=== PATIENT | female | born 1990 | race Caucasian/White ===

== ENCOUNTER 2018-05-11 12:16 | Outpatient (REF) | payer MEDICAID, SELFPAY ==
--- NOTE | 2018-05-11 11:30 | PAPFT_PTH ---
PATIENT: Malia Ledesma LOC: [facility] U#:[id number] AGE/SX: 27/F ROOM: RE05/11/[address]: Leigh Ann Bauer CNM : 1990 BED: DIS: 05/11/2018 SPEC #: [id number] RECD: 05/11/18 13:05 STATUS: SUSANNA REJimmie #: [id number] ANDREA: 05/11/18 11:[address]: Leigh Ann Bauer DEPT: [facility] Cytology RECD BY: Camille Zuniga ENTERED: 05/11/18 13:05 SP TYPE: PAPFT OTHR DR: Griselda Alatorre APRN Tissues: 1 - CX/ENDOCX FOR PAP SMEARS Procedures: PAP THIN PREP/UVM Screening HPV DNA PROBE Comments: [id number]
[2018-05-12 14:16] LABS: Chlamydia Result Negative; GC Result Negative; Specimen Description CERVIX
== END 2018-05-11 12:36 ==
LOC: LBN 12:16
PROVIDERS: PCP Nurse Practitioner Family; Visit Provider Advanced Practice Midwife
DX: Z34.91 Encounter for supervision of normal pregnancy, unspecified, first trimester (principal); Z11.3 Encounter for screening for infections with a predominantly sexual mode of transmission; Z12.4 Encounter for screening for malignant neoplasm of cervix
CPT/HCPCS: 87491; 87591; 88142; 87624

== ENCOUNTER 2018-05-12 09:53 | Outpatient (CLI) | payer MEDICAID, SELFPAY ==
[2018-05-12 10:51] LABS: Glucose,1 Hr (Glucola) 103 mg/dL (80-140)
[2018-05-12 11:05] LABS: TSH (W/Ref FT4) 2.47 uIU/mL (0.358-3.74)
[2018-05-13 13:29] LABS: HSV Type 1 Ab, IgG Positive; HSV Type 2 Ab, IgG Negative
[2018-05-13 13:30] LABS: Varicella IgG Antibody Positive
== END 2018-05-12 10:13 ==
PROVIDERS: PCP Nurse Practitioner Family; Visit Provider Advanced Practice Midwife
DX: Z34.81 Encounter for supervision of other normal pregnancy, first trimester (principal); Z01.84 Encounter for antibody response examination; Z11.59 Encounter for screening for other viral diseases
CPT/HCPCS: 36415; 82950; 86787; 86850; 86900; 86901; 84443; 86659; 86695; 86696

== ENCOUNTER 2018-06-09 15:27 | Outpatient (REF) | payer MEDICAID, SELFPAY ==
[2018-06-09 17:26] LABS: Bilirubin Negative (Negative); Blood Negative (Negative); Clarity Clear; Glucose Negative (Negative); Ketones 15 mg/dL (Negative); Leukocyte Esterase Negative (Negative); Nitrite Negative (Negative); Urobilinogen 0.2 EU/dL (Up TO 0.2)
== END 2018-06-09 15:47 ==
LOC: LBN 15:27
PROVIDERS: PCP Nurse Practitioner Family; Visit Provider Advanced Practice Midwife
DX: Z34.91 Encounter for supervision of normal pregnancy, unspecified, first trimester (principal)
CPT/HCPCS: 81003; 87086

== ENCOUNTER 2018-07-01 12:57 | Outpatient (REF) | payer MEDICAID, SELFPAY | END 2018-07-01 13:17 | LOC: LBN 12:57 | PROVIDERS: PCP Nurse Practitioner Family; Visit Provider Advanced Practice Midwife | DX: N89.8 Other specified noninflammatory disorders of vagina (principal); L30.9 Dermatitis, unspecified; Z34.91 Encounter for supervision of normal pregnancy, unspecified, first trimester | CPT/HCPCS: 87086; 87480; 87510; 87660 ==

== ENCOUNTER 2018-07-23 00:32 | Outpatient (CLI) | payer MEDICAID, SELFPAY ==
--- NOTE | 2018-07-23 07:42 | DI.US_ITS ---
SYMPTOM/DIAGNOSIS: 18 WEEK ANATOMY SURVEY, Z3 OB ULTRASOUND: The fetus was in variable position during the exam. The placenta is posterior. The biometric measurements correspond to 18 weeks 5 days. The heart and face were not well seen. The patient is scheduled to return 30 July 2018 for repeat imaging. No gross abnormalities are identified. The amniotic fluid amount appears grossly normal. IMPRESSION: There is somewhat limited visualization of morphology. The patient is scheduled for repeat imaging. Many abnormalities cannot be diagnosed. A normal exam does not exclude a congenital anomaly. Radiology No. [id number] LMP: Exam Date: 07/23/18 [facility] wks days on EDC ([facility]) 12/21/18 Confirmed: HISTORY: SURVEY ---- PREDICTED GESTATIONAL AGE NUMBER 18 +3 weeks with a range of 17 +3 week to 19 +3 weeks. 1 Determined by_XX__1STUS___LMP___HISTORY Info. pertaining to fetus # PLACENTA PRESENTATION Grade 0 - 1 Cephalic___ Anterior___Posterior_XX__ Breech____ Right Left Transverse(head right___ Fundal___Low-lying___Previa___ Transverse(head left___ Varying__XX____ BIOMETRY AMNIOTIC FLUID BPD: 42 mm 18 +6 weeks Normal HC: 160 mm 18 +6 weeks AC: 133 mm 18 +5 weeks FL: 28 mm 18 +4 weeks AMNIOTIC FLUID INDEX >26 WK CRL: mm weeks Cisterna Magna: 4 mm CI: 0,81 RUQ: LUQ Cerebellum: 1.9 cm EFW: grams Percentile RLQ: LLQ Total: cms Composite AGE= 18 +5 wks EDC by US__12/19/2018 BIOPHYSICAL PROFILE ANATOMY IDENTIFIED SCORE 0/2 Heart: 4-Chamber_NS __Rate:BPM__155___ LVOT:__X RVOT:__X Amniotic Fluid(>2cms)____ Stomach:__X Kidneys:___X____ Respirations (>30 secs) Bladder:___X Post. Fossa:__X Body Flex/Extension 3 vessel cord:_X Ventricles:___X cord insertion:_X____ Lips:__NS__ Extremity Flex/Extension spinal morphology: Nose: NS Total Score= Palate:__X NS=not seen
== END 2018-07-23 00:52 ==
PROVIDERS: PCP Nurse Practitioner Family; Visit Provider Advanced Practice Midwife
DX: Z34.92 Encounter for supervision of normal pregnancy, unspecified, second trimester (principal)
CPT/HCPCS: 76805

== ENCOUNTER 2018-08-03 00:27 | Outpatient (CLI) | payer MEDICAID, SELFPAY ==
--- NOTE | 2018-08-03 08:20 | DI.US_ITS ---
SYMPTOM/DIAGNOSIS: F/U SURVEY, LIPS, PALATE. AND 4 CH HRT LIMITED OBSTETRICAL ULTRASOUND: There is a single intrauterine gestation in the cephalic presentation. heart rate is 157 beats/minute. 4-chamber heart was visualized as were the lips, nose and palate which are unremarkable. IMPRESSION: Single living intrauterine gestation. Many abnormalities cannot be diagnosed. A normal exam does not exclude a congenital anomaly. Radiology No. [id number] LMP: Exam Date:08/03/18 [facility] wks days on EDC ([facility]) Confirmed: HISTORY: F/U LIPS, NOSE, MOUTH, 4 CH VIEWS PREDICTED GESTATIONAL AGE NUMBER weeks with a range of week to weeks. 1 Determined by___1STUS___LMP___HISTORY Info. pertaining to fetus # PLACENTA PRESENTATION Grade Cephalic_XX__ Anterior___Posterior___ Breech____ Right Left Transverse(head right___ Fundal___Low-lying___Previa___ Transverse(head left___ Varying BIOMETRY AMNIOTIC FLUID BPD: mm weeks Normal HC: mm weeks Oligo Polyhydramnios AC: mm weeks FL: mm weeks AMNIOTIC FLUID INDEX >26 WK CRL: mm weeks Cisterna Magna: mm CI: RUQ: LUQ Cerebellum: cm EFW: grams Percentile RLQ: LLQ Total: cms Composite AGE= wks EDC by US BIOPHYSICAL PROFILE ANATOMY IDENTIFIED SCORE 0/2 Heart: 4-Chamber_XX__Rate:BPM___157__ LVOT: RVOT: Amniotic Fluid(>2cms)____ Stomach: Kidneys: Respirations (>30 secs) Bladder: Post. Fossa: Body Flex/Extension 3 vessel cord: Ventricles: cord insertion: Lips:_X___ Extremity Flex/Extension spinal morphology: Nose:X Total Score= Palate:_X NS=not seen
== END 2018-08-03 00:47 ==
PROVIDERS: PCP Nurse Practitioner Family; Visit Provider Advanced Practice Midwife
DX: Z34.92 Encounter for supervision of normal pregnancy, unspecified, second trimester (principal); Z36.2 Encounter for other antenatal screening follow-up
CPT/HCPCS: 76815

== ENCOUNTER 2018-08-06 14:33 | Outpatient (REF) | payer MEDICAID, SELFPAY | END 2018-08-06 14:53 | LOC: LBN 14:33 | PROVIDERS: PCP Nurse Practitioner Family; Visit Provider Advanced Practice Midwife | DX: Z34.92 Encounter for supervision of normal pregnancy, unspecified, second trimester (principal) | CPT/HCPCS: 87086 ==

== ENCOUNTER 2018-09-04 11:56 | Outpatient (REF) | payer MEDICAID, SELFPAY ==
[2018-09-04 12:48] LABS: Bilirubin Negative (Negative); Blood Negative (Negative); Clarity Sl Cloudy; Glucose Negative (Negative); Ketones Negative (Negative); Leukocyte Esterase Negative (Negative); Nitrite Negative (Negative); Urobilinogen 0.2 EU/dL (Up TO 0.2)
== END 2018-09-04 12:16 ==
LOC: LBN 11:56
PROVIDERS: PCP Nurse Practitioner Family; Visit Provider Advanced Practice Midwife
DX: Z34.92 Encounter for supervision of normal pregnancy, unspecified, second trimester (principal)
CPT/HCPCS: 81003; 87086

== ENCOUNTER 2018-10-02 08:42 | Outpatient (CLI) | payer MEDICAID, SELFPAY ==
[2018-10-02 09:14] LABS: Glucose,1 Hr (Glucola) 102 mg/dL (80-140)
[2018-10-02 09:24] LABS: HCT 36.5 % (36.0-46.0); HGB 11.8 g/dL (12.0-15.5); Mean Corp. HGB Concentration 32.3 g/dL (32.0-36.0); Mean Corpuscular Hemoglobin 29.6 pg (27.0-33.0); Mean Corpuscular Volume 91.7 fL (80-95); Mean Platelet Volume 10.3 fL (8.0-11.0); Platelet Count 253 x1000/uL (130-400); RBC 3.98 m/cumm (4.00-5.20); RBC Distribution Width 12.8 % (11.7-14.6)
== END 2018-10-02 09:02 ==
PROVIDERS: PCP Nurse Practitioner Family; Visit Provider Advanced Practice Midwife
DX: Z34.93 Encounter for supervision of normal pregnancy, unspecified, third trimester (principal)
CPT/HCPCS: 36415; 82950; 85027

== ENCOUNTER 2018-11-20 02:22 | Outpatient (CLI) | payer MEDICAID, SELFPAY ==
--- NOTE | 2018-11-20 10:47 | DI.US_ITS ---
SYMPTOMS/DIAGNOSIS: SIZE < DATES, Z34.90 OB ULTRASOUND: OB ultrasound was performed utilizing third trimester protocol. biometry is consistent with a gestational age of 35 weeks 3 days and EDC 12/22/18. The estimated weight is 2645 grams which is at the 51st percentile for predicted gestational age. Placenta is posterior with no placenta previa. Visually a normal quantity of amniotic fluid with LAKESHA 17. Fetus is in cephalic presentation. Many abnormalities cannot be diagnosed. A normal exam does not exclude a congenital anomaly. Radiology No. [id number] LMP: Exam Date: 11/20/18 [facility] wks days on EDC ([facility]) 12/21/18 Confirmed: HISTORY: f/u weight and LAKESHA PREDICTED GESTATIONAL AGE NUMBER 35+4 weeks with a range of 34+4 weeks to 36+4 weeks. 1 Determined by___1STUS___LMP___HISTORY Info. pertaining to fetus # PLACENTA PRESENTATION Grade II Cephalic X Anterior___Posterior X Breech____ Right Left Transverse(head right___ Fundal___Low-lying___Previa___ Transverse(head left___ Varying BIOMETRY AMNIOTIC FLUID BPD: 88 mm 35+2 weeks Normal HC: 316 mm 35+3 weeks AC: 313 mm 35+2 weeks FL: 69 mm 35+3weeks AMNIOTIC FLUID INDEX >26 WK CRL: mm weeks Cisterna Magna: mm CI: 85 RUQ: 4.95 LUQ: 0.62 Cerebellum: cm EFW: 2645 grams Percentile 51% RLQ: 6.74 LLQ: 4.74 Total: 17.1 cms Composite AGE= 35+3 wks ( 5 lbs, 13 oz) EDC by US 12/22/18 BIOPHYSICAL PROFILE ANATOMY IDENTIFIED SCORE 0/2 Heart: 4-Chamber___Rate: 133 BPM LVOT: RVOT: Amniotic Fluid(>2cms)____ Stomach: Kidneys: Respirations (>30 secs) Bladder: Post. Fossa: Body Flex/Extension 3 vessel cord: Ventricles: cord insertion: Lips:____ Extremity Flex/Extension spinal morphology: Nose: Total Score= Palate: NS=not seen
== END 2018-11-20 02:42 ==
PROVIDERS: PCP Nurse Practitioner Family; Visit Provider Advanced Practice Midwife
DX: O26.843 Uterine size-date discrepancy, third trimester (principal)
CPT/HCPCS: 76816

== ENCOUNTER 2018-12-04 15:59 | Outpatient (REF) | payer MEDICAID, SELFPAY | END 2018-12-04 16:19 | LOC: LBN 15:59 | PROVIDERS: PCP Nurse Practitioner Family; Visit Provider Advanced Practice Midwife | DX: R30.0 Dysuria (principal); Z34.93 Encounter for supervision of normal pregnancy, unspecified, third trimester; Z36.85 Encounter for antenatal screening for Streptococcus B | CPT/HCPCS: 87081; 87086; 87480; 87510; 87660 ==

== ENCOUNTER 2018-12-18 09:31 | Outpatient (CLI) | payer MEDICAID, SELFPAY | END 2018-12-18 09:51 | PROVIDERS: PCP Nurse Practitioner Family; Visit Provider Advanced Practice Midwife | DX: O36.8130 Decreased fetal movements, third trimester, not applicable or unspecified (principal); Z3A.39 39 weeks gestation of pregnancy | CPT/HCPCS: 59025 ==

== ENCOUNTER 2018-12-22 02:21 | Inpatient (IN) | payer MEDICAID, SELFPAY ==
[2018-12-22 04:21] LABS: ROM Plus Positive
[2018-12-22] MEDS: Zolpidem 5 MG TAB PO (05:09)
[2018-12-22] MEDS: Normal Saline Flush 10 ML SYR IVP ×2 (07:16→11:51)
[2018-12-22] MEDS: Lactated Ringers 500 ML IV (07:20)
[2018-12-22 07:35] LABS: HCT 37.5 % (36.0-46.0); HGB 12.3 g/dL (12.0-15.5); Mean Corp. HGB Concentration 32.8 g/dL (32.0-36.0); Mean Corpuscular Hemoglobin 28.9 pg (27.0-33.0); Mean Platelet Volume 10.2 fL (8.0-11.0); Platelet Count 242 x1000/uL (130-400); RBC 4.26 m/cumm (4.00-5.20); RBC Distribution Width 13.3 % (11.7-14.6); White Blood Cell Count 10.73 k/cumm (4.4-10.8)
[2018-12-22] MEDS: fentaNYL 100 MCG/2 ML VIAL EP (08:41)
[2018-12-22] MEDS: Bupivacaine 0.25% Pres-Free 30 ML VIAL (08:42)
[2018-12-22] MEDS: Ondansetron 4 MG/2 ML VIAL IVP ×2 (11:50→16:33)
[2018-12-22] MEDS: Lactated Ringers 1,000 ML 1000 ML IV (12:15)
[2018-12-22] MEDS: Lactated Ringers 1,000 ML 250 ML IV (13:38)
[2018-12-22] MEDS: LORazepam 0.5 MG TAB PO (13:43)
[2018-12-22] MEDS: Hamamelis Leaf/Glycerin 100 EACH BOX PR (15:32)
[2018-12-22] MEDS: diphenhydrAMINE 25 MG CAP PO (17:08)
[2018-12-22] MEDS: Prenatal Multivitamin w/CA,FE TAB 1 TAB PO (21:45)
[2018-12-23] MEDS: diphenhydrAMINE 25 MG CAP PO (01:30)
[2018-12-23 07:29] LABS: HCT 37.3 % (36.0-46.0); Mean Corp. HGB Concentration 32.2 g/dL (32.0-36.0); Mean Corpuscular Hemoglobin 28.6 pg (27.0-33.0); Mean Platelet Volume 10.1 fL (8.0-11.0); Platelet Count 220 x1000/uL (130-400); RBC 4.19 m/cumm (4.00-5.20); RBC Distribution Width 13.3 % (11.7-14.6)
[2018-12-23] MEDS: Ibuprofen 600 MG TAB PO (11:27)
[2018-12-23] MEDS: Triamcinolone 0.1% CR 15 GM TUBE TP (11:29)
== END 2018-12-23 17:00 | disposition home or self-care (01) | DRG 807 ==
PROVIDERS: Admitting Provider Advanced Practice Midwife; PCP Nurse Practitioner Family; Visit Provider Advanced Practice Midwife
DX: O42.02 Full-term premature rupture of membranes, onset of labor within 24 hours of rupture (principal); Z37.0 Single live birth; O69.81X0 Labor and delivery complicated by cord around neck, without compression, not applicable or unspecified; O48.0 Post-term pregnancy; O76 Abnormality in fetal heart rate and rhythm complicating labor and delivery; Z3A.40 40 weeks gestation of pregnancy; O99.344 Other mental disorders complicating childbirth; F43.10 Post-traumatic stress disorder, unspecified; F90.9 Attention-deficit hyperactivity disorder, unspecified type; F41.9 Anxiety disorder, unspecified
CPT/HCPCS: 36415; 84112; 85027; 86850; 86900; 86901; J2405; J3010; J3490

== ENCOUNTER 2019-04-28 11:47 | Outpatient (REF) | payer MEDICAID, SELFPAY ==
--- NOTE | 2019-04-28 10:55 | PAPFT_PTH ---
PATIENT: Malia Ledesma LOC: [facility] U#:[id number] AGE/SX: 28/F ROOM: RE04/28/[address]: Aggie Chapman RN : 1990 BED: DIS: 04/28/2019 SPEC #: [id number] RECD: 04/28/19 12:56 STATUS: SUSANNA REJimmie #: [id number] ANDREA: 04/28/19 10:[address]: Aggie Chapman [facility] Cytology RECD BY: Camille Zuniga ENTERED: 04/28/19 12:56 SP TYPE: PAPFT WOLF DR: Karena Stevens APRN Tissues: 1 - CX/ENDOCX FOR PAP SMEARS Procedures: PAP THIN PREP/UVM Screening HPV DNA PROBE Comments: [id number]
== END 2019-04-28 12:07 ==
LOC: LBN 11:47
PROVIDERS: PCP Nurse Practitioner; Visit Provider Advanced Practice Midwife
DX: N89.8 Other specified noninflammatory disorders of vagina (principal); Z12.4 Encounter for screening for malignant neoplasm of cervix; Z11.51 Encounter for screening for human papillomavirus (HPV)
CPT/HCPCS: 88142; 87480; 87510; 87624; 87660

== ENCOUNTER 2020-04-06 18:12 | Outpatient (REF) | payer MEDICAID, SELFPAY ==
[2020-04-10 14:07] LABS: Chlamydia Result Negative (Negative); GC Result Negative (Negative)
== END 2020-04-06 18:32 ==
LOC: NCHCN 18:12
PROVIDERS: PCP Family Medicine; Visit Provider Family Medicine
DX: N94.10 Unspecified dyspareunia (principal); Z11.3 Encounter for screening for infections with a predominantly sexual mode of transmission
CPT/HCPCS: 87491; 87591

== ENCOUNTER 2020-04-23 10:55 | Emergency (ER) | payer MEDICAID, SELFPAY ==
[2020-04-23] VITALS (18 sets, daily range): BP systolic 111–143; BP diastolic 62–99; PULSE 66–87; RESP 18; TEMP 36.6; O2SAT 97–99
[2020-04-23 11:20] LABS: Bilirubin Negative (Negative); Blood Negative (Negative); Clarity Clear (Clear); Glucose Negative (Negative); Ketones Negative (Negative); Leukocyte Esterase Negative (Negative); Nitrite Negative (Negative); Urobilinogen 0.2 EU/dL (Up TO 0.2); pH 7.5 (5-8)
--- NOTE | 2020-04-23 12:14 | W.ED.GENAD ---
Discharge Plan Disposition Patient Disposition: HOME Condition: Stable Discharge Details Chief Complaint: FlankPain Clinical Impression: Chills, Elevated WBC count, Muscular aches Primary Care Provider: Margarito Curry ED Provider: Angel Altamirano Home Meds and New Rx's Prescriptions: New sulfamethoxazole-trimethoprim [Bactrim DS] 800-160 mg tablet 1 tab PO BID Qty: 27 RF: 0 Continued PNV,calcium 72-iron,carb-folic 29 mg iron- 1 mg tablet 1 tab PO DAILY Qty: 90 RF: 4 ParaGard T 380A 380 square mm intrauterine device 1 device IY ONCE RF: 0 buspirone 5 mg tablet 5 mg PO BID RF: 0 triamcinolone acetonide 0.5 % cream 1 applic TP BID Qty: 15 RF: 1 Discharge Instructions Instructions: Leukocytosis (ED) Additional Instructions: Please take full course of antibiotic as prescribed for potential kidney infection. Please drink plenty of fluids to stay hydrated. Please allow for plenty of rest. You should maintain quarantine at home until COVID-19 testing is negative. You will be called with COVID-19 result or can access this on the patient portal. Please contact your primary care physician to arrange follow-up. Return to the ER for any worsening or new concerning symptoms. Stand Alone Forms: PENDING COVID-19 TESTING Referrals: Margarito Curry [Primary Care Provider] - Discharge Data Discharge Date/Time-TO BE ENTERED AT DEPARTURE: 04/23/20 13:43 Medical Decision Making 29-year-old female with history of generalized anxiety disorder, here with diffuse myalgias, chills over the past 2 days. Patient is afebrile, hemodynamically stable. No signs of focal bacterial infection on exam. Abdominal exam benign. Lungs clear to auscultation bilaterally all field [place], saturating well. Labs reviewed and leukocytosis noted. Urinalysis is unremarkable but patient notes that she has had urinary tract infections in the past that were difficult to diagnose. She does note that while she has pain all over she seems a more focal right flank discomfort which is consistent with prior presentations for kidney infection. Given this, despite negative urinalysis, I will cover with Bactrim for potential pyelonephritis. Blood cultures sent. COVID-19 test was sent and is pending. Patient understands importance of quarantine until test results negative. Patient is quite anxious and has had significant life stressors recently. Of note, patient does state that she has been drinking heavily recently and stopped drinking over the past few days. Mild alcohol withdrawal may be contributing to symptoms. I do think patient needs close outpatient follow-up with her primary care physician I have encouraged her to call Dr. Curry's office on Friday on Friday. She was encouraged to return immediately for any worsening or new concerning symptoms. HPI General Mode of arrival: ambulatory. Date/Time Provider Initiated Documentation: 04/23/20 10:59. Limitations to Documentation: no limitations. Information obtained by: patient. HPI Narrative: 29-year-old female with history of generalized anxiety disorder, here with chills over the past 2 days. Chills have been moderate with no modifiers. She has associated diffuse body myalgias. No associated cough or shortness of breath. Patient is concerned that she may have a urinary tract infection. Patient does note that she has had pyelonephritis in the past that was difficult to diagnose with late onset of symptoms. Patient states that recently she has been drinking up to 6 beers a night over the past month or so. She stopped drinking a couple days ago and wonders if symptoms may be related to withdrawal. She does have anxiety. Related Data Home Medications Medication Instructions Recorded Confirmed vitamins with calcium 1 tab PO DAILY #90 tab 04/21/18 04/23/20 no.72-iron 29 mg-folic acid 1 mg tablet triamcinolone acetonide 0.5 % 1 applic TP BID #15 gm 08/13/18 04/23/20 topical cream copper 380 square mm intrauterine 1 device IY ONCE 02/02/19 04/23/20 device buspirone 5 mg tablet 5 mg PO BID 04/28/19 04/23/20 sulfamethoxazole-trimethoprim 1 tab PO BID #27 tab 04/23/20 [Bactrim DS] Previous Rx's Medication Instructions Recorded vitamins with calcium 1 tab PO DAILY #90 tab 04/21/18 no.72-iron 29 mg-folic acid 1 mg tablet triamcinolone acetonide 0.5 % 1 applic TP BID #15 gm 08/13/18 topical cream sulfamethoxazole-trimethoprim 1 tab PO BID #27 tab 04/23/20 [Bactrim DS] Allergies Allergy/AdvReac Type Severity Reaction Status Date / Time Penicillins AdvReac Intermediate Hives Verified 04/23/20 11:11 General Stated Complaint: FlankPain LETITIA: 3 Review of Systems All systems reviewed & are unremarkable except as noted in HPI and below Constitutional Constitutional: Reports body ache(s) and Reports chills Respiratory Respiratory: Denies cough Genitourinary Genitourinary: Reports as per HPI and Denies dysuria Psychiatric Psychiatric: Reports anxiety [facility] Medical History (Updated 04/23/20 @ 13:29 by Angel Altamirano MD) Anxiety (Chronic) Depression (Inactive) Eczema (Chronic) History of acute pyelonephritis (Acute) HPV in female (Acute) IUD check up (Inactive) RTO in 1 year for annual exam. Normal menstrual pattern with paragard discussed. Positive test (Acute) (Resolved) Pyelonephritis (Inactive 12/19/16) Routine medical exam (Inactive) Vaginitis (Inactive) Surgical History Cystoscopy (01/05/18) [facility] with R ureteral stent placement EGD w/Bx for H.Pylori (07/29/08) [facility] Family History (Updated 05/18/19 @ 11:03 by Virginia Manzo RN) Father , OD at age 42. Substance abuse Essential hypertension Mother Mental disorder Bipolar d/o Neoplasm small cell neuroendocrine carcinoma Sister Substance abuse Mental disorder Bipolar d/o Brother Substance abuse Mental disorder Bipolar d/o Brother Substance abuse Mental disorder Bipolar d/o Grandmother Neoplasm Breast CA Social History (Updated 03/18/19 @ 09:37 by Simran Good RN) Smoking/Tobacco Use Status: Current-Occasional Tobacco Type: cigarettes Counseling given: provider counseling Alcohol Intake: never Details: Decided to quit drinking. Stopped 01/2019 Substance use type: does not use Adopted: No Foster care: No Household members: significant other and children Number of Children: 2 current occupation: [employer] Pets and animals: Yes (1 dog) What type of physical activity do you participate in: regular exercise Duration: other Details: cleaning Frequency: daily Do you feel safe at home: Yes Do you feel safe in your relationship?: Yes Female Reproductive History Menstrual control method: none History History 2 Para 2 Hx # Term Pregnancies 2 Multiple births 0 Hx # Pregnancies 0 Ectopic pregnancies 0 AB induced 0 Hx Number of Living Children 2 AB spontaneous 0 Past Pregnancies Del. Date GA/Weeks # Outcome Route Wgt Sex Labor Lgth Anesthesia Location Prov Complic 11/20/16 40 Successful vaginal 2.92 kg Female 9 hours regional 12/22/18 40 No Successful vaginal 3.685 kg Female Vale Bauer CNM Delivery Date: 11/20/16 Delivered at [place] Vale Bauer Delivery Date: 12/22/18 No notes to display Exam Const General: cooperative and no acute distress HENMT Mouth: moist mucous membranes Throat: posterior oropharynx normal Eyes Conjunctivae: normal conjunctivae Sclera: normal sclerae Neck Neck: full ROM, trachea midline and supple Resp Auscultation: clear to auscultation bilaterally, no rales, no rhonchi and no wheezes Cardio Rate: regular rate and not tachycardic Rhythm: regular rhythm GI Palpation: soft, not firm, no guarding, no masses, not rigid and nontender Back/Spine/Pelvis Back: CVA tenderness (bilateral) Skin General skin exam: no rashes or lesions noted Neuro General: patient alert, patient awake and tone normal Other: No tremor Extrem General: no edema Psych Appearance: grossly normal Mental Status: mental status grossly normal Course Vital Signs Vital signs: Vital Signs Temperature 36.6 C 04/23/20 11:07 Pulse 87 04/23/20 11:07 Respiratory Rate 18 04/23/20 11:07 Blood Pressure 143/85 H 04/23/20 11:07 Pulse Oximetry 99 04/23/20 11:07 Temperature 36.6 C 04/23/20 11:07 Temperature Source Skin 04/23/20 11:07 Pulse 87 04/23/20 11:07 Respiratory Rate 18 04/23/20 11:07 Respiratory Effort 04/23/20 11:10 Blood Pressure 143/85 H 04/23/20 11:07 Blood Pressure Position Sitting 04/23/20 11:07 Pulse Oximetry 99 04/23/20 11:07 Oxygen Delivery Method Room Air 04/23/20 11:07 Oxygen Flow Rate 0 04/23/20 11:07 Pain Level 9 04/23/20 11:10 Lab/Test Results Lab/Test Results: Laboratory Tests Range/Units 04/23/20 11:02 Urine Color (Yellow) Yellow Urine Clarity (Clear) Clear Urine pH (5-8) 7.5 Ur Specific Lorenzo (1.005-1.025) 1.020 Urine Protein (Negative) mg/dL Negative Urine Ketones (Negative) mg/dL Negative Urine Blood (Negative) Negative Urine Nitrite (Negative) Negative Urine Bilirubin (Negative) Negative Urine Urobilinogen (Up TO 0.2) EU/dL 0.2 Ur Leukocyte Esterase (Negative) Negative Urine Glucose (Negative) mg/dL Negative POC- Test(urine) Negative
[2020-04-23] MEDS: Ibuprofen 600 MG TAB PO (12:18)
[2020-04-23] MEDS: Lactated Ringers 1,000 ML 1000 ML IV (12:18)
[2020-04-23 12:22] LABS: Abs Immature Grans 0.08 10^3/uL (0.0-0.06); Absolute Basophil Count 0.05 10^3/uL (0.0-0.2); Absolute Eosinophil Count 0.02 10^3/uL (0.0-0.7); Basophils % 0.3; Eosinophils % 0.1; HGB 13.5 g/dL (11.2-15.7); Immature Grans % 0.5; Lymphocytes % 2.8; MCH 30.4 pg (27.0-33.0); MCHC 32.1 % (32.0-36.0); MCV 94.6 fL (80-95); MPV 10.1 fL (8.0-11.0); Monocytes % 7.3; Nucleated RBC 0 %; Platelet Count 298 10^3/uL (130-400); RBC 4.44 10^6/uL (3.93-5.22); RDW 13.1 % (11.7-14.6); RDW-SD 45.2 fL; WBC 17.36 10^3/uL (4.4-10.8)
[2020-04-23 12:23] LABS: Absolute Lymphocyte Count 0.49 10^3/uL (1.2-3.4); Absolute Monocyte Count 1.27 10^3/uL (0.1-0.8); Absolute Neutrophil Count 15.45 10^3/uL (1.2-6.7)
[2020-04-23 12:37] LABS: ALT 22 U/L (14-59); AST 11 U/L (15-37); Albumin 3.7 g/dL (3.4-5.0); Alkaline Phosphatase 71 U/L (46-116); Anion Gap 9.3 mmol/L (3-11); BUN 6 mg/dL (7-18); Bilirubin, Total 0.6 mg/dL (0.2-1.0); CO2 24.7 mmol/L (21.0-32.0); CREATININE 0.58 mg/dL (0.55-1.02); Calcium 9.1 mg/dL (8.5-10.1); Chloride 100 mmol/L (98-107); Glucose 99 mg/dL (74-106); Potassium 3.5 mmol/L (3.5-5.1); Sodium 134 mmol/L (136-145); Total Protein 7.3 g/dL (6.4-8.2)
[2020-04-23 12:41] LABS: Troponin I < 0.05 ng/mL (<0.06)
[2020-04-23] MEDS: Sulfameth/Trimeth DS TAB 1 TAB PO (13:37)
[2020-04-26 10:58] LABS: Lyme Ab w Rflx to Lyme Confirm Negative (Negative)
[2020-04-26 22:50] LABS: Patient Race White; SARS-CoV-2 RNA Undetected (Undetected); SARS-CoV-2 Specimen Source Nasopharynx
[2020-04-27 00:57] LABS: Anaplasma phagocytophilum Negative (Negative); B. miyamotoi PCR Negative (Negative); Babesia divergens/MO-1 Negative (Negative); Babesia duncani Negative (Negative); Babesia microti Negative (Negative); Ehrlichia chaffeensis Negative (Negative); Ehrlichia ewingii/canis Negative (Negative); Ehrlichia muris eauclairensis Negative (Negative)
--- NOTE | 2020-04-27 14:39 | NUR.NOTE ---
Nursing Note: PT notified of COVID results at this time.
== END 2020-04-23 13:43 | disposition home or self-care (01) ==
PROVIDERS: Emergency Provider Student in an Organized Health Care Education/Training Program; PCP Family Medicine
DX: R68.83 Chills (without fever) (principal); D72.829 Elevated white blood cell count, unspecified; M79.18 Myalgia, other site; Z03.818 Encounter for observation for suspected exposure to other biological agents ruled out
CPT/HCPCS: 80053; 81025; 87040; 87798; 96360; 99284; U0003; 81003; 84484; 85025; 86618

== ENCOUNTER 2020-04-28 10:34 | Outpatient (REF) | payer MEDICAID, SELFPAY ==
[2020-04-28 15:07] LABS: ESR 22 mm/hr (0-20)
[2020-04-28 15:08] LABS: Abs Immature Grans 0.03 10^3/uL (0.0-0.06); Absolute Basophil Count 0.05 10^3/uL (0.0-0.2); Absolute Eosinophil Count 0.24 10^3/uL (0.0-0.7); Absolute Lymphocyte Count 0.81 10^3/uL (1.2-3.4); Absolute Monocyte Count 0.84 10^3/uL (0.1-0.8); Absolute Neutrophil Count 6.73 10^3/uL (1.2-6.7); Basophils % 0.6; Eosinophils % 2.8; HCT 44.4 % (36.0-46.0); Immature Grans % 0.3; Lymphocytes % 9.3; MCH 30.2 pg (27.0-33.0); MCHC 31.5 % (32.0-36.0); MCV 95.7 fL (80-95); MPV 10.2 fL (8.0-11.0); Monocytes % 9.7; Neutrophils % 77.3; Nucleated RBC 0 %; Platelet Count 374 10^3/uL (130-400); RBC 4.64 10^6/uL (3.93-5.22); RDW 12.8 % (11.7-14.6); RDW-SD 45.4 fL
== END 2020-04-28 10:54 ==
LOC: NCHCN 10:34
PROVIDERS: PCP Family Medicine; Visit Provider Family Medicine
DX: D72.829 Elevated white blood cell count, unspecified (principal); N39.0 Urinary tract infection, site not specified
CPT/HCPCS: 85652; 85025

== ENCOUNTER 2020-06-26 14:14 | Emergency (ER) | payer MEDICAID, SELFPAY ==
[2020-06-26 14:25] VITALS: BP 129/71; PULSE 80; RESP 18; TEMP 36.7; O2SAT 98
--- NOTE | 2020-06-26 14:30 | DI.CT_ITS ---
EXAM: CT RENAL COLIC WO INDICATION: RLQ abd pain. COMPARISON: CT RENAL COLIC WO CONTRAST from 12/31/2017 TECHNIQUE: CT examination was performed without contrast administration. FINDINGS: Images obtained through the lung bases are unremarkable. Visualized portions of the liver and splee n appear intact. Visualized portions of the pancreas are unremarkable. Gallbladder and bile ducts are CT normal. Abdominal aorta is of normal diameter. No significant abdominal wall hernia. No significant abdominal or pelvic adenopathy. Adrenals appear normal bilaterally. The kidneys are normal in size and shape. There is tiny nonobstructing right renal calculus. There are multiple nonobstructing small left renal calculi. There is a 5 millimeter stone in the ureterope lvic junction, question slight caliceal dilatation but no gross hydronephrosis. No additional ureter al calcification seen. Urinary bladder is nearly empty. Appendix appears normal. No evidence of bowel obstruction or diverticulitis. There is an IUD in the uterus. [employer] structures otherwise unremarkable. There is trace fluid in the p eder which is nonspecific. IMPRESSION: Bilateral nonobstructing renal calculi, there is also a left 5 millimeter ureteropelvic junction or p roximal ureteral stone which may be causing slight caliceal dilatation. No gross hydronephrosis. RADIATION DOSE DELIVERED: 813.44mGy.cm Total DLP
[2020-06-26 14:40] LABS: Bilirubin Negative (Negative); Blood Trace-lysed (Negative); Clarity Sl Cloudy (Clear); Glucose Negative (Negative); Ketones Negative (Negative); Leukocyte Esterase Small (Negative); Nitrite Negative (Negative); Specific Gravity >= 1.030 (1.005-1.025); Urobilinogen 0.2 EU/dL (Up TO 0.2); pH 6.5 (5-8)
--- NOTE | 2020-06-26 14:40 | ED.GENADUL_ITS ---
Discharge Plan Disposition Patient Disposition: HOME Condition: Stable Discharge Details Clinical Impression: Bilateral kidney stones Primary Care Provider: Margarito Curry ED Provider: Quynh Lopez Home Meds and New Rx's Prescriptions: New oxycodone-acetaminophen [Percocet] 5-325 mg tablet 1 tab PO Q6H PRN (Reason: pain) Qty: 7 RF: 0 Continued ParaGard T 380A 380 square mm intrauterine device 1 device IY ONCE RF: 0 triamcinolone acetonide 0.5 % cream 1 applic TP BID Qty: 15 RF: 1 sertraline 100 mg tablet 100 mg PO DAILY RF: 0 No Action hydromorphone [Dilaudid] 2 mg tablet 2 mg PO Q6H PRN (Reason: pain) Qty: 10 RF: 0 tamsulosin [Flomax] 0.4 mg capsule 0.4 mg PO DAILY Qty: 7 RF: 0 Discharge Instructions Instructions: Kidney Stones (ED) Additional Instructions: Follow up with primary care provider in 3-5 days. Return to ED sooner if any worsening or concerns. Increase oral fluids. Please take Tylenol or Ibuprofen with food every 4-6 hours as needed for pain and swelling. Strain all urine. Follow-up with urology as needed. Return to the ED for any fever vomiting or any concerns. Referrals: Xavier Fernandez MD [ [facility] STAFF PHYSICIAN] - Margarito Curry [Primary Care Provider] - Discharge Data Discharge Date/Time-TO BE ENTERED AT DEPARTURE: 06/26/20 16:03 Medical Decision Making 29-year-old female presents to the ED with chief complaint of right lower quadrant abdominal pain x2 days which radiates into her right flank. She reports that this is been ongoing for last 2 to 3 days. Denies fever or dysuria. She is on Flagyl for bacterial vaginosis. She does have a history of anxiety, depression,, pyelonephritis. She states upon initial exam that she is a hypochondriac and is asking if she is dying. CT without contrast ordered at this time. a CT:CT renal colic wo EXAM: CT RENAL COLIC WO INDICATION: RLQ abd pain. COMPARISON: CT RENAL COLIC WO CONTRAST from 12/31/2017 TECHNIQUE: CT examination was performed without contrast administration. FINDINGS: Images obtained through the lung bases are unremarkable. Visualized portions of the liver and spleen appear intact. Visualized portions of the pancreas are unremarkable. Gallbladder and bile ducts are CT normal. Abdominal aorta is of normal diameter. No significant abdominal wall hernia. No significant abdominal or pelvic adenopathy. Adrenals appear normal bilaterally. The kidneys are normal in size and shape. There is tiny nonobstructing right renal calculus. There are multiple nonobstructing small left renal calculi. There is a 5 millimeter stone in the ureteropelvic junction, question slight caliceal dilatation but no gross hydronephrosis. No additional ureteral calcification seen. Urinary bladder is nearly empty. Appendix appears normal. No evidence of bowel obstruction or diverticulitis. There is an IUD in the uterus. 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 There is trace fluid in the pelvis which is nonspecific. IMPRESSION: Bilateral nonobstructing renal calculi, there is also a left 5 millimeter ureteropelvic junction or proximal ureteral stone which may be causing slight caliceal dilatation. No gross hydronephrosis. Discussed CT results with patient who verbalized understanding. Discussed straining all urine and follow-up with urology. Order in for Percocet. HPI General Mode of arrival: ambulatory . Date/Time Provider Initiated Documentation: 06/26/20 14:25 . Limitations to Documentation: no limitations . Information obtained by: patient . HPI Narrative: 29-year-old female presents to the ED with chief complaint of right lower quadrant abdominal pain x2 days which radiates into her right flank. She reports that this is been ongoing for last 2 to 3 days. Denies fever or dysuria. She is on Flagyl for bacterial vaginosis. She does have a history of anxiety, depression,, pyelonephritis. She states upon initial exam that she is a hypochondriac and is asking if she is dying. Related Data Home Medications Medication Instructions Recorded Confirmed triamcinolone acetonide 0.5 % 1 applic TP BID #15 gm 08/13/18 06/28/20 topical cream copper 380 square mm intrauterine 1 device IY ONCE 02/02/19 06/28/20 device oxycodone-acetaminophen [Percocet] 1 tab PO Q6H PRN #7 tab 06/26/20 06/28/20 sertraline 100 mg PO DAILY 06/26/20 06/28/20 hydromorphone [Dilaudid] 2 mg PO Q6H PRN #10 tab 06/28/20 tamsulosin [Flomax] 0.4 mg PO DAILY #7 cap 06/28/20 Previous Rx's Medication Instructions Recorded triamcinolone acetonide 0.5 % 1 applic TP BID #15 gm 08/13/18 topical cream oxycodone-acetaminophen [Percocet] 1 tab PO Q6H PRN #7 tab 06/26/20 hydromorphone [Dilaudid] 2 mg PO Q6H PRN #10 tab 06/28/20 tamsulosin [Flomax] 0.4 mg PO DAILY #7 cap 06/28/20 Allergies Allergy/AdvReac Type Severity Reaction Status Date / Time Penicillins AdvReac Intermediate Hives Verified 06/28/20 11:14 General Stated Complaint: FlankPain LETITIA: 3 Review of Systems Narrative: Constitutional: Negative for weight loss, alert and oriented, well groomed, normal body habitus, appears comfortable. HEENT: Denies trauma, headaches, blurry vision, nasal discharge, sore throat, trouble swallowing. Chest: Denies chest pain, palpitations, irregular rhythm, hypertension. Respiratory: Denies Shortness of breath, cough, hemoptysis. GI: Denies nausea, vomiting, diarrhea, constipation. Positive suprapubic abdominal pain radiates in her right flank. : Denies dysuria, hematuria, rectal bleeding. Neuro: Denies dizziness, blurry vision, weakness, syncope, headache or facial numbness. Hematologic: Denies easy bruising, intolerance to heat or cold, hair loss. 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 Normal menstrual pattern with paragard discussed. Positive test Pyelonephritis (12/19/16) Routine medical exam Vaginitis Surgical History [place]05/18[place] [facility] [place] stent [place]GD w/Bx for H.Pylori (07/29/08) [facility] Family History Father , OD at age 42. Substance abuse Essential hypertension Mother Mental disorder Bipolar d/o Neoplasm small cell neuroendocrine carcinoma Sister Substance abuse Mental disorder Bipolar d/o Brother Substance abuse Mental disorder Bipolar d/o Brother Substance abuse Mental disorder Bipolar d/o Grandmother Neoplasm Breast CA Social History Smoking/Tobacco Use Status: Current-Occasional Tobacco Type: cigarettes Counseling given: provider counseling Smoking risk assessment performed?: Yes Alcohol Intake: current Alcohol Intake frequency: a few times a month Details: Decided to quit drinking. Stopped 01/2019 Drug use: Occasionally Substance use type: marijuana Adopted: No Foster care: No Household members: significant other and children Number of Children: 2 current occupation: [employer] Pets and animals: Yes (1 dog) What type of physical activity do you participate in: regular exercise Duration: other Details: cleaning Frequency: daily Do you feel safe at home: Yes Do you feel safe in your relationship?: Yes Female Reproductive History Menstrual control method: none History History 2 Para 2 Hx # Term Pregnancies 2 Multiple births 0 Hx # Pregnancies 0 Ectopic pregnancies 0 AB induced 0 Hx Number of Living Children 2 AB spontaneous 0 Past Pregnancies Del. Date GA/Weeks # Outcome Route Wgt Sex Labor Lgth Anesthes ia Location Prov Compl 11/20/16 40 Successful vaginal 2920.001 g Female 9 hours regional 12/22/18 40 No Successful vaginal 3685.438 g Female [facility] Delivery Date: 11/20/16 Delivered at [facility] Delivery Date: 12/22/18 No notes to display Exam Narrative Exam Narrative: Constitutional: Alert and oriented x3. Appears stated age. Normal body habitus. Head: Normocephalic, no trauma. Eyes: Pupils PERRLA, Red reflex noted, EOM's intact. Eyelids symmetrical without lesions, discharge, or swelling. ENT: Bilateral TM's WNL, External ear normal to inspection, no mastoid TTP, swelling, or erythema, Nasal turbinates WNL, no nasal discharge. Normal dentition, Posterior pharynx WNL, no exudate. Chest: RRR, Normal S1, S2, distal pulses intact. Resp: Lungs clear to auscultation bilaterally, no wheezes, rales, or rhonchi. Abdominal: Tender suprapubic abdomen to right flank. On reevaluation she does have some left upper abdominal pain. Musculoskeletal: Normal gait, 5/5 strength to all four extremities. Skin: No suspicious rashes or lesions. Capillary refill less than 2 sec. Neurologic: Cranial nerves II-XII intact. Alert and oriented x 3. DTR's intact. Hematologic/Lymphatic: No ecchymosis, no lymphadenopathy. Course Vital Signs Vital signs: Vital Signs Temperature 36.7 C 06/26/20 14:25 Pulse 80 06/26/20 14:25 Respiratory Rate 18 06/26/20 14:25 Blood Pressure 129/71 06/26/20 14:25 Pulse Oximetry 98 06/26/20 14:25 Temperature 36.7 C 06/26/20 14:25 Temperature Source Temporal Artery Scan 06/26/20 14:25 Pulse 80 06/26/20 14:25 Respiratory Rate 18 06/26/20 14:25 Respiratory Effort Non-Labored 06/26/20 14:31 Blood Pressure 129/71 06/26/20 14:25 Blood Pressure Position Sitting 06/26/20 14:25 Pulse Oximetry 98 06/26/20 14:25 Oxygen Delivery Method Room Air 06/26/20 14:25 Oxygen Flow Rate 0 06/26/20 14:25 Pain Level 9 06/26/20 14:34 Lab/Test Results Lab/Test Results: POC- Test(urine) Negative
[2020-06-26 14:51] LABS: Bacteria Moderate HPF (Negative); C & S Indicated? No/Sq. Contamination; Casts Negative LPF (Negative); Crystals Negative HPF (Negative); Epithelial Cells Many HPF (Negative); Mucus Trace (Negative); RBC 20-50 HPF (0-2); WBC >50 HPF (0-5)
[2020-06-26] MEDS: oxyCODONE 5 mg/Acetaminophen 325 mg TAB 1 TAB PO (15:59)
[2020-06-26 16:04] VITALS: BP 125/70; PULSE 84; RESP 18; TEMP 36.7; O2SAT 98
== END 2020-06-26 16:03 | disposition home or self-care (01) ==
PROVIDERS: Emergency Provider Registered Nurse Emergency; PCP Family Medicine
DX: N20.2 Calculus of kidney with calculus of ureter (principal); Z87.440 Personal history of urinary (tract) infections
CPT/HCPCS: 81025; 99284; 74176; 81003; 81015

== ENCOUNTER 2020-06-28 11:04 | Emergency (ER) | payer MEDICAID, SELFPAY ==
--- NOTE | 2020-06-28 11:00 | DI.US_ITS ---
EXAM: US RENAL CLINICAL HISTORY: Flank pain, L, recent CT. TECHNIQUE: Dickey scale, color and spectral Doppler were used. COMPARISON: CT CT RENAL COLIC WO from 06/26/2020 FINDINGS: Renal size in cm: Right: 11.2. Left: 10.9. Echogenicity: Normal. Hydronephrosis: Minimal left hydronephrosis. Cyst or mass: No. Nephrolithiasis: Echogenic foci seen in the left kidney. The largest measures 4 mm. These are consi stent with nonobstructing stones. Other findings: None. Bladder:Normal. Ureteral jets: Right: Visualized and unremarkable. Left: Visualized and unremarkable. Prevoid vol:576 cc Postvoid vol:10 cc Renal color flow: Symmetric and within normal limits. IMPRESSION: Minimal residual left hydronephrosis. Left nephrolithiasis. Findings were discussed with the emergency department on the date of the examination. DATA REPOSITORY:
[2020-06-28 11:09] VITALS: BP 130/81; PULSE 64; TEMP 36.6; O2SAT 99
--- NOTE | 2020-06-28 11:25 | ED.GENADUL_ITS ---
Discharge Plan Disposition Patient Disposition: HOME Condition: Improving Discharge Details Clinical Impression: Ureteral colic Primary Care Provider: Margarito Curry ED Provider: Deejay Lewis Home Meds and New Rx's Prescriptions: New hydromorphone [Dilaudid] 2 mg tablet 2 mg PO Q6H PRN (Reason: pain) Qty: 10 RF: 0 tamsulosin [Flomax] 0.4 mg capsule 0.4 mg PO DAILY Qty: 7 RF: 0 Continued ParaGard T 380A 380 square mm intrauterine device 1 device IY ONCE RF: 0 triamcinolone acetonide 0.5 % cream 1 applic TP BID Qty: 15 RF: 1 sertraline 100 mg tablet 100 mg PO DAILY RF: 0 No Action oxycodone-acetaminophen [Percocet] 5-325 mg tablet 1 tab PO Q6H PRN (Reason: pain) Qty: 7 RF: 0 Discharge Instructions Instructions: Kidney Stones (ED) Additional Instructions: Home to rest today. I discussed your case with urology and they will see you in the clinic for follow-up. The clinic number is [phone]. Continue ibuprofen 800 mg every 8 hours, take with food. Acetaminophen/Tylenol 650 to 975 mg every 6 hours as needed, and may use the prescribed hydromorphone as needed for severe or breakthrough pain. Take the Flomax as prescribed. This may cause slight lightheadedness when rising quickly to a standing position. Return to the ER for any emergent concerns. Medical Decision Making 29-year-old female seen emerge department June 26 for flank pain. She had a renal protocol CAT scan which revealed bilateral intrarenal stones with a left 5 mm UPJ stone. She has had some improvement with prescribed Percocet, the last of which she took 4 AM this morning. Now states persistent pain, hematuria. No fever. Vital signs are normal. She is tender in the left lower quadrant and left flank. IV access is established, patient given fluids, parenteral analgesia, referred for ultrasound. This reveals mild left hydronephrosis. Evidence of ureteral jet present. Labs with white count 9.8, hematocrit 40, platelets 273. Chemistries reassuring with BUN of 12, creatinine 0.6. Urinalysis shows a specific gravity of 1.02, negative leuk esterase, negative nitrites. Case discussed with urology, Lisa Sotelo, she requests fax referral to the clinic which I have requested. They will see the patient in short-term follow- up. I will place her on 7 days of Flomax, she was consented for the use of narcotic analgesia if needed. She is stable and improving at this time. HPI General Mode of arrival: ambulatory . Date/Time Provider Initiated Documentation: 06/28/20 11:10 . Limitations to Documentation: no limitations . Information obtained by: patient . History of Present Illness 29 year old F presents to the emergency department with the chief complaint of Left flank pain, described as moderate, Quality is described as dull and constant, and is localized to the back, abdomen and left. Patient reports radiation to back. and it has been constant. No relieving factors improve symptom(s), No exacerbating factors reported . Patient notes other (Bloody urine); denies fever/chills. Patient did receive the following treatments prior to arrival, NSAID Related Data Home Medications Medication Instructions Recorded Confirmed triamcinolone acetonide 0.5 % 1 applic TP BID #15 gm 08/13/18 06/28/20 topical cream copper 380 square mm intrauterine 1 device IY ONCE 02/02/19 06/28/20 device oxycodone-acetaminophen [Percocet] 1 tab PO Q6H PRN #7 tab 06/26/20 06/28/20 sertraline 100 mg PO DAILY 06/26/20 06/28/20 hydromorphone [Dilaudid] 2 mg PO Q6H PRN #10 tab 06/28/20 tamsulosin [Flomax] 0.4 mg PO DAILY #7 cap 06/28/20 Previous Rx's Medication Instructions Recorded triamcinolone acetonide 0.5 % 1 applic TP BID #15 gm 08/13/18 topical cream oxycodone-acetaminophen [Percocet] 1 tab PO Q6H PRN #7 tab 06/26/20 hydromorphone [Dilaudid] 2 mg PO Q6H PRN #10 tab 06/28/20 tamsulosin [Flomax] 0.4 mg PO DAILY #7 cap 06/28/20 Allergies Allergy/AdvReac Type Severity Reaction Status Date / Time Penicillins AdvReac Intermediate Hives Verified 06/28/20 11:14 General Stated Complaint: FlankPain LEITTIA: 3 Review of Systems Narrative: No fever or chills. Hematuria. IUD in place. 6 systems reviewed and otherwise negative. 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 Normal menstrual pattern with paragard discussed. Positive test Pyelonephritis (12/19/16) Routine medical exam Vaginitis [place] [facility] [place] w/Bx for H.Pylori (07/29/08) [facility] Family History Father , OD at age 42. Substance abuse Essential hypertension Mother Mental disorder Bipolar d/o Neoplasm small cell neuroendocrine carcinoma Sister Substance abuse Mental disorder Bipolar d/o Brother Substance abuse Mental disorder Bipolar d/o Brother Substance abuse Mental disorder Bipolar d/o Grandmother Neoplasm Breast CA Social History Smoking/Tobacco Use Status: Current-Occasional Tobacco Type: cigarettes Counseling given: provider counseling Smoking risk assessment performed?: Yes Alcohol Intake: current Alcohol Intake frequency: a few times a month Details: Decided to quit drinking. Stopped 01/2019 Drug use: Occasionally Substance use type: marijuana Adopted: No Foster care: No Household members: significant other and children Number of Children: 2 current occupation: [employer] Pets and animals: Yes (1 dog) What type of physical activity do you participate in: regular exercise Duration: other Details: cleaning Frequency: daily Do you feel safe at home: Yes Do you feel safe in your relationship?: Yes Female Reproductive History Menstrual control method: none History History 2 Para 2 Hx # Term Pregnancies 2 Multiple births 0 Hx # Pregnancies 0 Ectopic pregnancies 0 AB induced 0 Hx Number of Living Children 2 AB spontaneous 0 Past Pregnancies Del. Date GA/Weeks # Outcome Route Wgt Sex Labor Lgth Anesthes ia Location Prov Compl 11/20/16 40 Successful vaginal 2920.001 g Female 9 hours regional 12/22/18 40 No Successful vaginal 3685.438 g Female [facility]: [facility]18 No notes to display Exam Narrative Exam Narrative: GEN: awake, alert, oriented 3. Pleasant, well groomed, interactive. HEAD: Normocephalic, atraumatic ENT: Mucous membranes moist, oropharynx unremarkable, External ear exam unremarkable EYES: PERRL, EOMI NECK: Full ROM, no THOMAS, no menigismus CHEST/RESP: Nontender, clear to auscultation bilateral, no wheeze/rhonchi/rales CARDIOVASCULAR: RRR, no murmur, rub ashli. 2+ Rad pulse bilateral ABDOMEN: Soft, tender left lower quadrant, tender left flank, no mass. +Bowel so unds EXT: Full ROM, no edema, no rash Neuro: Grossly normal neurologic exam, conversant, interactive. Psych: Speech fluent, thoughts congruent, affect normal Course Vital Signs Vital signs: Vital Signs Temperature 36.6 C 06/28/20 11:09 Pulse 64 06/28/20 11:09 Blood Pressure 130/81 06/28/20 11:09 Pulse Oximetry 99 06/28/20 11:09 Temperature 36.6 C 06/28/20 11:09 Temperature Source Temporal Artery Scan 06/28/20 11:09 Pulse 64 06/28/20 11:09 Respiratory Effort Non-Labored 06/28/20 11:12 Blood Pressure 130/81 06/28/20 11:09 Blood Pressure Position Sitting 06/28/20 11:09 Pulse Oximetry 99 06/28/20 11:09 Oxygen Delivery Method Room Air 06/28/20 11:09 Oxygen Flow Rate 0 06/28/20 11:09 Pain Level 10 06/28/20 11:14
[2020-06-28 11:29] LABS: Bilirubin Negative (Negative); Blood Negative (Negative); Clarity Clear (Clear); Glucose Negative (Negative); Ketones Negative (Negative); Leukocyte Esterase Negative (Negative); Nitrite Negative (Negative); Urobilinogen 0.2 EU/dL (Up TO 0.2); pH 7.5 (5-8)
[2020-06-28] MEDS: HYDROmorphone 2 MG/ML VIAL 0.5 MG IVP ×2 (11:55→12:28)
[2020-06-28] MEDS: Ketorolac 30 MG/ML VIAL IVP (11:56)
[2020-06-28] MEDS: Normal Saline 1,000 ML 1000 ML IV (11:56)
[2020-06-28 12:08] LABS: Anion Gap 6.9 mmol/L (3-11); BUN 12 mg/dL (7-18); CO2 28.1 mmol/L (21.0-32.0); CREATININE 0.61 mg/dL (0.55-1.02); Chloride 103 mmol/L (98-107); Glucose 95 mg/dL (74-106); Potassium 3.9 mmol/L (3.5-5.1); Sodium 138 mmol/L (136-145)
[2020-06-28 12:19] LABS: Abs Immature Grans 0.04 10^3/uL (0.0-0.06); Absolute Basophil Count 0.04 10^3/uL (0.0-0.2); Absolute Eosinophil Count 0.15 10^3/uL (0.0-0.7); Absolute Lymphocyte Count 0.76 10^3/uL (1.2-3.4); Absolute Neutrophil Count 8.13 10^3/uL (1.2-6.7); Basophils % 0.4; Eosinophils % 1.5; HCT 40.7 % (36.0-46.0); HGB 13.3 g/dL (11.2-15.7); Immature Grans % 0.4; Lymphocytes % 7.7; MCH 30.6 pg (27.0-33.0); MCHC 32.7 % (32.0-36.0); MCV 93.8 fL (80-95); MPV 10.1 fL (8.0-11.0); Monocytes % 7.1; Neutrophils % 82.9; Nucleated RBC 0 %; Platelet Count 273 10^3/uL (130-400); RBC 4.34 10^6/uL (3.93-5.22); RDW 12.3 % (11.7-14.6); RDW-SD 42.8 fL; WBC 9.82 10^3/uL (4.4-10.8)
[2020-06-28] MEDS: HYDROmorphone 2 MG/ML VIAL 1 MG IVP (13:36)
[2020-06-28 13:37] VITALS: BP 110/71; PULSE 67; RESP 16; TEMP 36.7; O2SAT 98
[2020-06-28] MEDS: Normal Saline 1,000 ML 150 ML IV (13:37)
[2020-06-28] MEDS: Tamsulosin 0.4 MG CAPCR PO (13:37)
--- NOTE | 2020-06-28 14:13 | NUR.NOTE ---
Referral faxed to [facility].Nursing Note:
== END 2020-06-28 14:31 | disposition home or self-care (01) ==
PROVIDERS: Emergency Provider Emergency Medicine; PCP Family Medicine
DX: N20.0 Calculus of kidney (principal); R31.9 Hematuria, unspecified; R10.32 Left lower quadrant pain
CPT/HCPCS: 36415; 76770; 80048; 96361; 96374; 96375; 96376; 99284; 81003; 85025; J1885

== ENCOUNTER 2020-06-30 11:29 | Emergency (ER) | payer MEDICAID, SELFPAY ==
[2020-06-30 11:37] VITALS: BP 130/81; PULSE 52; RESP 18; TEMP 36.4; O2SAT 100
[2020-06-30 11:50] LABS: Bilirubin Negative (Negative); Blood Small (Negative); Clarity Clear (Clear); Glucose Negative (Negative); Ketones Negative (Negative); Leukocyte Esterase Negative (Negative); Nitrite Negative (Negative); Urobilinogen 0.2 EU/dL (Up TO 0.2)
--- NOTE | 2020-06-30 11:55 | W.ED.GENAD ---
Discharge Plan Disposition Patient Disposition: HOME Condition: Stable Discharge Details Clinical Impression: Kidney stone Primary Care Provider: Margarito Curry ED Provider: Quynh Lopez Home Meds and New Rx's Prescriptions: New ketorolac 10 mg tablet 10 mg PO TID PRN (Reason: pain) 5 Days Qty: 15 RF: 0 hydromorphone 2 mg tablet 2 mg PO Q6H PRN (Reason: pain) Qty: 20 RF: 0 No Action ParaGard T 380A 380 square mm intrauterine device 1 device IY ONCE RF: 0 triamcinolone acetonide 0.5 % cream 1 applic TP BID Qty: 15 RF: 1 sertraline 100 mg tablet 100 mg PO DAILY RF: 0 oxycodone-acetaminophen [Percocet] 5-325 mg tablet 1 tab PO Q6H PRN (Reason: pain) Qty: 7 RF: 0 hydromorphone [Dilaudid] 2 mg tablet 2 mg PO Q6H PRN (Reason: pain) Qty: 10 RF: 0 tamsulosin [Flomax] 0.4 mg capsule 0.4 mg PO DAILY Qty: 7 RF: 0 Discharge Instructions Instructions: Kidney Stones (ED) Additional Instructions: Follow up with primary care provider in 3-5 days. Return to ED sooner if any worsening or concerns. Increase oral fluids. Please take Tylenol with food every 4-6 hours as needed for pain and swelling. Do not take ibuprofen with Toradol. May take Tylenol. Return to the ED for any fever, worsening concerns, vomiting. Call [facility] urology for possible sooner follow-up appointment otherwise keep your previously scheduled appointment. [facility] urology [facility] Location: [facility], [address] [place] [address] Referrals: Margarito Curry [Primary Care Provider] - Discharge Data Discharge Date/Time-TO BE ENTERED AT DEPARTURE: 06/30/20 14:55 Medical Decision Making 29-year-old female presents to the ED with chief complaint of left-sided flank pain. She was diagnosed with bilateral kidney stones on June [address], she returned to the ED on the had an ultrasound which showed a 4 mm stone in the left flank. She reports not having an outpatient follow-up with urology scheduled. She states she took her last hydromorphone this morning at 8 AM and has continued pain and nausea. She denies any vomiting diarrhea or fever. She denies any dysuria. 1400: Spoke with Dr. Fernandez with urology here he was able to view the ultrasound and previous CT he measures the left kidney stone at approximately 7 mm. He does not agree with the 1 cm ultrasound read of today. Discussed patient case in details with him at this time she is nonseptic appearing, BUN and creatinine are within normal limits, no signs of infection noted in her urine. He recommends possibly following up with [facility] urology for a sooner appointment otherwise keeping her previously scheduled appointment with them in approximately 3 weeks. EXAM: US RENAL CLINICAL HISTORY: Hx of kidney stone, Increased pain. TECHNIQUE: Dickey scale, color and spectral Doppler were used. COMPARISON: US US RENAL from 06/28/2020 FINDINGS: Renal size in cm: Right: 10.4. Left: 10.3. Echogenicity: Normal. Hydronephrosis: Mild left hydronephrosis. There is a 1 cm echogenic focus seen at the left UPJ suggestive of an obstructing stone. Cyst or mass: No. Nephrolithiasis: 4 mm echogenic focus in the left midpole consistent with a nonobstructing stone. Other findings: None. Bladder:Normal. Ureteral jets: Right: Visualized and unremarkable. Left: Visualized and unremarkable. Prevoid vol:193 cc Postvoid vol:0 cc Renal color flow: Symmetric and within normal limits. IMPRESSION: 1. Mild left hydronephrosis. 1 cm echogenic focus at the left UPJ consistent with an obstructing stone. 2. Left nephrolithiasis. CBC is largely unremarkable, CMP also within normal limits. Urinalysis shows small amount of blood no leukocytes no nitrites, 0-2 RBCs. I will refill the patient's prescription for hydromorphone and discussed follow-up care with patient. HPI General Mode of arrival: ambulatory. Date/Time Provider Initiated Documentation: 06/30/20 11:29. Limitations to Documentation: no limitations. Information obtained by: patient. HPI Narrative: 29-year-old female presents to the ED with chief complaint of left-sided flank pain. She was diagnosed with bilateral kidney stones on June [address], she returned to the ED on the had an ultrasound which showed a 4 mm stone in the left flank. She reports not having an outpatient follow-up with urology scheduled. She states she took her last hydromorphone this morning at 8 AM and has continued pain and nausea. She denies any vomiting diarrhea or fever. She denies any dysuria. Related Data Home Medications Medication Instructions Recorded Confirmed triamcinolone acetonide 0.5 % 1 applic TP BID #15 gm 08/13/18 06/28/20 topical cream copper 380 square mm intrauterine 1 device IY ONCE 02/02/19 06/28/20 device oxycodone-acetaminophen [Percocet] 1 tab PO Q6H PRN #7 tab 06/26/20 06/28/20 sertraline 100 mg PO DAILY 06/26/20 06/28/20 hydromorphone [Dilaudid] 2 mg PO Q6H PRN #10 tab 06/28/20 tamsulosin [Flomax] 0.4 mg PO DAILY #7 cap 06/28/20 hydromorphone 2 mg PO Q6H PRN #20 tab 06/30/20 ketorolac 10 mg PO TID PRN 5 Days #15 tab 06/30/20 Previous Rx's Medication Instructions Recorded triamcinolone acetonide 0.5 % 1 applic TP BID #15 gm 08/13/18 topical cream oxycodone-acetaminophen [Percocet] 1 tab PO Q6H PRN #7 tab 06/26/20 hydromorphone [Dilaudid] 2 mg PO Q6H PRN #10 tab 06/28/20 tamsulosin [Flomax] 0.4 mg PO DAILY #7 cap 06/28/20 hydromorphone 2 mg PO Q6H PRN #20 tab 06/30/20 ketorolac 10 mg PO TID PRN 5 Days #15 tab 06/30/20 Allergies Allergy/AdvReac Type Severity Reaction Status Date / Time Penicillins AdvReac Intermediate Hives Verified 06/30/20 11:40 General Stated Complaint: Abd Prob LETITIA: 3 Review of Systems Narrative: Constitutional: Negative for weight loss, alert and oriented, well groomed, normal body habitus, appears comfortable. HEENT: Denies trauma, headaches, blurry vision, nasal discharge, sore throat, trouble swallowing. Chest: Denies chest pain, palpitations, irregular rhythm, hypertension. Respiratory: Denies Shortness of breath, cough, hemoptysis. GI: Denies vomiting, diarrhea, constipation. : Denies rectal bleeding. Positive left flank pain positive hematuria denies any dysuria. Neuro: Denies dizziness, blurry vision, weakness, syncope, headache or facial numbness. Hematologic: Denies easy bruising, intolerance to heat or cold, hair loss. [facility] Medical History Anxiety Depression Eczema History of acute pyelonephritis HPV in female IUD check up RTO in 1 year for annual exam. Normal menstrual pattern with paragard discussed. Positive test Pyelonephritis (12/19/16) Routine medical exam Vaginitis Surgical History Cystoscopy (01/05/18) [facility] Urology with R ureteral stent placement EGD w/Bx for H.Pylori (07/29/08) [facility] Family History Father , OD at age 42. Substance abuse Essential hypertension Mother Mental disorder Bipolar d/o Neoplasm small cell neuroendocrine carcinoma Sister Substance abuse Mental disorder Bipolar d/o Brother Substance abuse Mental disorder Bipolar d/o Brother Substance abuse Mental disorder Bipolar d/o Grandmother Neoplasm Breast CA Social History Smoking/Tobacco Use Status: Current-Occasional Tobacco Type: cigarettes Counseling given: provider counseling Smoking risk assessment performed?: Yes Alcohol Intake: current Alcohol Intake frequency: a few times a month Details: Decided to quit drinking. Stopped 01/2019 Drug use: Occasionally Substance use type: marijuana Adopted: No Foster care: No Household members: significant other and children Number of Children: 2 current occupation: [employer] Pets and animals: Yes (1 dog) What type of physical activity do you participate in: regular exercise Duration: other Details: cleaning Frequency: daily Do you feel safe at home: Yes Do you feel safe in your relationship?: Yes Female Reproductive History Menstrual control method: none History History 2 Para 2 Hx # Term Pregnancies 2 Multiple births 0 Hx # Pregnancies 0 Ectopic pregnancies 0 AB induced 0 Hx Number of Living Children 2 AB spontaneous 0 Past Pregnancies Del. Date GA/Weeks # Outcome Route Wgt Sex Labor Lgth Anesthesia Location Prov Complic 11/20/16 40 Successful vaginal 2920.001 g Female 9 hours regional 12/22/18 40 No Successful vaginal 3685.438 g Female Vale Bauer CNM Delivery Date: 11/20/16 Delivered at [place] Vale Bauer Delivery Date: 12/22/18 No notes to display Exam Narrative Exam Narrative: Constitutional: Alert and oriented x3. Appears stated age. Normal body habitus. Head: Normocephalic, no trauma. Eyes: Pupils PERRLA, Red reflex noted, EOM's intact. Eyelids symmetrical without lesions, discharge, or swelling. ENT: Bilateral TM's WNL, External ear normal to inspection, no mastoid TTP, swelling, or erythema, Nasal turbinates WNL, no nasal discharge. Normal dentition, Posterior pharynx WNL, no exudate. Chest: RRR, Normal S1, S2, distal pulses intact. Resp: Lungs clear to auscultation bilaterally, no wheezes, rales, or rhonchi. Musculoskeletal: Normal gait, 5/5 strength to all four extremities. Skin: No suspicious rashes or lesions. Capillary refill less than 2 sec. Neurologic: Cranial nerves II-XII intact. Alert and oriented x 3. DTR's intact. Hematologic/Lymphatic: No ecchymosis, no lymphadenopathy. Course Vital Signs Vital signs: Vital Signs Temperature 36.4 C L 06/30/20 11:37 Pulse 52 L 06/30/20 11:37 Respiratory Rate 18 06/30/20 11:37 Blood Pressure 130/81 06/30/20 11:37 Pulse Oximetry 100 06/30/20 11:37 Temperature 36.4 C L 06/30/20 11:37 Temperature Source Temporal Artery Scan 06/30/20 11:37 Pulse 52 L 06/30/20 11:37 Respiratory Rate 18 06/30/20 11:37 Respiratory Effort Non-Labored 06/30/20 11:41 Blood Pressure 130/81 06/30/20 11:37 Blood Pressure Position Sitting 06/30/20 11:37 Pulse Oximetry 100 06/30/20 11:37 Oxygen Delivery Method Room Air 06/30/20 11:37 Oxygen Flow Rate 0 06/30/20 11:37 Pain Level 10 06/30/20 11:37
[2020-06-30 11:59] LABS: Bacteria Negative HPF (Negative); C & S Indicated? No; Casts Negative LPF (Negative); Crystals Negative HPF (Negative); Epithelial Cells Rare HPF (Negative); Mucus Negative (Negative); RBC 0-2 HPF (0-2); WBC Negative HPF (0-5)
[2020-06-30 12:04] LABS: Abs Immature Grans 0.04 10^3/uL (0.0-0.06); Absolute Basophil Count 0.06 10^3/uL (0.0-0.2); Absolute Eosinophil Count 0.19 10^3/uL (0.0-0.7); Absolute Lymphocyte Count 0.77 10^3/uL (1.2-3.4); Absolute Monocyte Count 0.76 10^3/uL (0.1-0.8); Absolute Neutrophil Count 8.63 10^3/uL (1.2-6.7); Basophils % 0.6; Eosinophils % 1.8; HCT 42.2 % (36.0-46.0); HGB 13.5 g/dL (11.2-15.7); Immature Grans % 0.4; Lymphocytes % 7.4; MCH 30.1 pg (27.0-33.0); MPV 9.7 fL (8.0-11.0); Monocytes % 7.3; Neutrophils % 82.5; Nucleated RBC 0 %; Platelet Count 272 10^3/uL (130-400); RBC 4.49 10^6/uL (3.93-5.22); RDW 12.3 % (11.7-14.6); RDW-SD 42.6 fL; WBC 10.45 10^3/uL (4.4-10.8)
[2020-06-30] MEDS: Ketorolac 30 MG/ML VIAL IVP (12:11)
[2020-06-30] MEDS: Normal Saline 1,000 ML 150 ML IV (12:11)
[2020-06-30] MEDS: Ondansetron 4 MG/2 ML VIAL IVP (12:12)
--- NOTE | 2020-06-30 12:15 | DI.US_ITS ---
EXAM: US RENAL CLINICAL HISTORY: Hx of kidney stone, Increased pain. TECHNIQUE: Dickey scale, color and spectral Doppler were used. COMPARISON: US US RENAL from 06/28/2020 FINDINGS: Renal size in cm: Right: 10.4. Left: 10.3. Echogenicity: Normal. Hydronephrosis: Mild left hydronephrosis. There is a 1 cm echogenic focus seen at the left UPJ sugge stive of an obstructing stone. Cyst or mass: No. Nephrolithiasis: 4 mm echogenic focus in the left midpole consistent with a nonobstructing stone. Other findings: None. Bladder:Normal. Ureteral jets: Right: Visualized and unremarkable. Left: Visualized and unremarkable. Prevoid vol:193 cc Postvoid vol:0 cc Renal color flow: Symmetric and within normal limits. IMPRESSION: 1. Mild left hydronephrosis. 1 cm echogenic focus at the left UPJ consistent with an obstructing sto ne. 2. Left nephrolithiasis. DATA REPOSITORY:
[2020-06-30 12:19] LABS: ALT 24 U/L (14-59); AST 17 U/L (15-37); Albumin 3.9 g/dL (3.4-5.0); Alkaline Phosphatase 60 U/L (46-116); Anion Gap 7.6 mmol/L (3-11); BUN 11 mg/dL (7-18); Bilirubin, Total 0.4 mg/dL (0.2-1.0); CO2 29.4 mmol/L (21.0-32.0); CREATININE 0.76 mg/dL (0.55-1.02); Calcium 9.3 mg/dL (8.5-10.1); Chloride 102 mmol/L (98-107); Glucose 91 mg/dL (74-106); Sodium 139 mmol/L (136-145); Total Protein 7.4 g/dL (6.4-8.2)
[2020-06-30 13:30] VITALS: BP 119/86; PULSE 73; TEMP 36.4; O2SAT 100
[2020-06-30] MEDS: HYDROmorphone 2 MG/ML VIAL 0.5 MG IVP (13:35)
[2020-06-30 14:08] VITALS: BP 119/73; PULSE 50; RESP 14; TEMP 36.5; O2SAT 94
[2020-06-30] MEDS: Normal Saline Flush 10 ML SYR IVP (14:43)
[2020-06-30] MEDS: Ketorolac 15 MG/ML VIAL IVP (14:43)
== END 2020-06-30 14:55 | disposition home or self-care (01) ==
PROVIDERS: Emergency Provider Registered Nurse Emergency; PCP Family Medicine
DX: N13.2 Hydronephrosis with renal and ureteral calculous obstruction (principal); Z87.440 Personal history of urinary (tract) infections
CPT/HCPCS: 36415; 76770; 80053; 96361; 96374; 96375; 96376; 99284; 81003; 81015; 85025; J1885; J2405

== ENCOUNTER 2020-07-05 08:20 | Emergency (ER) | payer MEDICAID, SELFPAY ==
[2020-07-05 08:28] VITALS: BP 129/77; PULSE 80; RESP 18; TEMP 36.6; O2SAT 100
[2020-07-05 08:40] LABS: Bilirubin Negative (Negative); Blood Moderate (Negative); Clarity Clear (Clear); Glucose Negative (Negative); Ketones Negative (Negative); Leukocyte Esterase Negative (Negative); Nitrite Negative (Negative); Specific Gravity 1.025 (1.005-1.025); Urobilinogen 0.2 EU/dL (Up TO 0.2)
--- NOTE | 2020-07-05 08:45 | DI.US_ITS ---
EXAM: US RENAL CLINICAL HISTORY: b/l flank pain. TECHNIQUE: Dickey scale, color and spectral Doppler were used. COMPARISON: CT CT RENAL COLIC WO from 06/26/2020 US US RENAL from 06/30/2020 FINDINGS: Renal size in cm: Right: 11.5. Left: 11.2. Echogenicity: Normal. Hydronephrosis: Mild left hydronephrosis. Cyst or mass: No. Nephrolithiasis: Bilateral nonobstructing stones. Other findings: 0.9 cm echogenic focus in the region of the proximal left ureter. Bladder:Normal. Ureteral jets: Right: Visualized and unremarkable. Left: Visualized and unremarkable. Prevoid vol:221 cc Postvoid vol:9 cc Renal color flow: Symmetric and within normal limits. IMPRESSION: 1. Persistent mild left hydronephrosis. 0.9 cm echogenic focus in the region of the left proximal ur eter consistent with the patient's known ureteral stone. 2. Bilateral nephrolithiasis. 3. Findings were discussed with the emergency department on the date of the examination. DATA REPOSITORY:
[2020-07-05 08:52] LABS: Bacteria Few HPF (Negative); C & S Indicated? No; Casts Negative LPF (Negative); Crystals Negative HPF (Negative); Epithelial Cells Few HPF (Negative); Mucus Moderate (Negative); Other Cells Rare Renal (Negative); RBC 20-50 HPF (0-2)
[2020-07-05] MEDS: Normal Saline 1,000 ML 1000 ML IV (09:04)
[2020-07-05] MEDS: Ketorolac 15 MG/ML VIAL IVP (09:04)
--- NOTE | 2020-07-05 09:09 | W.ED.GENAD ---
Discharge Plan Disposition Patient Disposition: HOME Condition: Stable Discharge Details Clinical Impression: Ureterolithiasis Primary Care Provider: Margarito Curry ED Provider: Brandy Altamirano Home Meds and New Rx's Prescriptions: Discontinued oxycodone-acetaminophen [Percocet] 5-325 mg tablet 1 tab PO Q6H PRN (Reason: pain) Qty: 7 RF: 0 hydromorphone 2 mg tablet 2 mg PO Q6H PRN (Reason: pain) Qty: 20 RF: 0 hydromorphone [Dilaudid] 2 mg tablet 2 mg PO Q6H PRN (Reason: pain) Qty: 10 RF: 0 No Action ParaGard T 380A 380 square mm intrauterine device 1 device IY ONCE RF: 0 hydromorphone [Dilaudid] 2 mg tablet 2 mg PO Q6H MDD 8mg PRN (Reason: pain (scale score 7-10)) Qty: 15 RF: 0 tamsulosin [Flomax] 0.4 mg capsule 0.4 mg PO DAILY Qty: 7 RF: 0 triamcinolone acetonide 0.5 % cream 1 applic TP BID Qty: 15 RF: 1 lorazepam [Ativan] 0.5 mg tablet 0.5 mg PO Q6H PRN (Reason: anxiety/muscle relaxation) Qty: 12 RF: 0 sertraline 100 mg tablet 100 mg PO DAILY RF: 0 acetaminophen 500 mg Capsule 500 mg RF: 0 ketorolac 10 mg tablet 10 mg PO Q6H PRN (Reason: pain) Qty: 12 RF: 0 Discharge Instructions Instructions: Ketorolac (By mouth), Hydromorphone (By mouth), Ureteral Stones (ED) Additional Instructions: Please return immediately to the emergency department if you develop any new or worsening symptoms, if your condition does not improve as expected, or if you become otherwise concerned. It is extremely important that you call soon as possible to make an appointment to be seen in follow-up for this visit by urology and your primary care doctor. Referrals: Xavier Fernandez MD [ [facility] STAFF PHYSICIAN] - Margarito Curry [Primary Care Provider] - Discharge Data Discharge Date/Time-TO BE ENTERED AT DEPARTURE: 07/05/20 12:05 Medical Decision Making Malia Ledesma is a 29-year-old woman with a history of kidney stones who presented to the emergency department with bilateral flank pain in setting of nonobstructing right nephrolithiasis and obstructing left ureterolithiasis diagnosed 06/26, this being the third follow-up visit for pain. On exam patient appears uncomfortable but otherwise well and nontoxic. There is mild bilateral CVA tenderness to palpation, tenderness to palpation across the lower abdomen without rebound or guarding. Concern for nephro/ureterolithiasis, pyelonephritis, other. Exam/history at this time not consistent with appendicitis or other acute emergent intra-abdominal process. Plan for renal ultrasound, screening labs, IV fluid hydration, IV Toradol. Will monitor and reassess. Pt requesting additional pain meds. US shows mild left hydronephrosis, unchanged. Labs reviewed, WBC 10.9, Cr o.7, UA shows RBCs and no UTI. Pt appears comfortable, no distress since receiving toradol. Ambulating about ED without issue. Resting comfortably in bed. Pt states that she has additional toradol at home. She requests additional opiate meds to get her through until urology appt. Record review shows Pt has been prescribed 37 tabs dilaudid/percocet for same medical condition since 06/26. Pt has appt with urology next week. I discussed with Pt that opiates in same dose lasting multiple more days not appropriate at this time. I offered to attempt to have urology appt rescheduled for sooner date, Pt declined this plan. I involved care management to facilitate appt with Pt's PCP. PCP offered appt this afternoon, but stated that they have concern for drug seeking behavior in the past and would provide no opiates. Pt declined this appt. No acute emergent medical condition identified at this time. I had a lengthy discussion with Patient regarding return to emergency department precautions, home care, and importance of outpatient follow-up with PCP, urology. Pt verbalizes understanding of the plan and is amenable. Patient discharged to home with clear plan for outpatient follow-up. All questions were answered. Disposition decision was made weighing the risks and benefits of hospitalization versus outpatient treatment, the risk for further decompensation, and the patient's wishes. Medical Records Medical records reviewed: Yes I reviewed the patient's medical records. Imaging Data Radiologic Study: Attestation: I personally reviewed and interpreted this imaging study as follows: Radiologist's impression: EXAM: US RENAL CLINICAL HISTORY: b/l flank pain. TECHNIQUE: Dickey scale, color and spectral Doppler were used. COMPARISON: CT CT RENAL COLIC WO from 06/26/2020 US US RENAL from 06/30/2020 FINDINGS: Renal size in cm: Right: 11.5. Left: 11.2. Echogenicity: Normal. Hydronephrosis: Mild left hydronephrosis. Cyst or mass: No. Nephrolithiasis: Bilateral nonobstructing stones. Other findings: 0.9 cm echogenic focus in the region of the proximal left ureter. Bladder:Normal. Ureteral jets: Right: Visualized and unremarkable. Left: Visualized and unremarkable. Prevoid vol:221 cc Postvoid vol:9 cc Renal color flow: Symmetric and within normal limits. IMPRESSION: 1. Persistent mild left hydronephrosis. 0.9 cm echogenic focus in the region of the left proximal ureter consistent with the patient's known ureteral stone. 2. Bilateral nephrolithiasis. Lab Data Lab results reviewed: Yes I reviewed the patient's lab results. Labs: Laboratory Tests Range/Units 07/05/20 07/05/20 07/05/20 08:32 09:01 09:01 WBC (4.4-10.8) 10^3/uL 10.98 H RBC (3.93-5.22) 10^6/uL 4.45 Hgb (11.2-15.7) g/dL 13.5 Hct (36.0-46.0) % 41.4 MCV (80-95) fL 93.0 MCH (27.0-33.0) pg 30.3 MCHC (32.0-36.0) % 32.6 RDW (11.7-14.6) % 12.5 Plt Count (130-400) 10^3/uL 312 MPV (8.0-11.0) fL 9.8 Immature Gran % 0.3 Neutrophils % 84.6 Lymphocytes % 7.5 Monocytes % 5.6 Eosinophils % 1.5 Basophils % 0.5 Nucleated RBC % % 0 Absolute Neutrophils (1.2-6.7) 10^3/uL 9.29 H Absolute Lymphocytes (1.2-3.4) 10^3/uL 0.82 L Absolute Monocytes (0.1-0.8) 10^3/uL 0.61 Absolute Eosinophils (0.0-0.7) 10^3/uL 0.16 Absolute Basophils (0.0-0.2) 10^3/uL 0.05 Sodium (136-145) mmol/L 143 Potassium (3.5-5.1) mmol/L 4.7 Chloride (98-107) mmol/L 104 Carbon Dioxide (21.0-32.0) mmol/L 28.2 Anion Gap (3-11) mmol/L 10.8 BUN (7-18) mg/dL 15 Creatinine (0.55-1.02) mg/dL 0.70 Estimated GFR/1.73 m2 (mL/min/1.73m2) >= 60.00 Glucose (74-106) mg/dL 92 Calcium (8.5-10.1) mg/dL 9.2 Total Bilirubin (0.2-1.0) mg/dL 0.3 AST (15-37) U/L 16 ALT (14-59) U/L 24 Alkaline Phosphatase (46-116) U/L 58 Total Protein (6.4-8.2) g/dL 7.6 Albumin (3.4-5.0) g/dL 3.8 Urine Color (Yellow) Yellow Urine Clarity (Clear) Clear Urine pH (5-8) 6.0 Ur Specific Walker (1.005-1.025) 1.025 Urine Protein (Negative) mg/dL Trace H Urine Ketones (Negative) mg/dL Negative Urine Blood (Negative) Moderate H Urine Nitrite (Negative) Negative Urine Bilirubin (Negative) Negative Urine Urobilinogen (Up TO 0.2) EU/dL 0.2 Ur Leukocyte Esterase (Negative) Negative Urine RBC (0-2) HPF 20-50 H Urine WBC (0-5) HPF 3-5 Ur Epithelial Cells (Negative) HPF Few Urine Crystals (Negative) HPF Negative Urine Bacteria (Negative) HPF Few Urine Casts (Negative) LPF Negative Urine Mucus (Negative) Moderate Urine Other (Negative) Rare renal Ur Culture Indicated? No Urine Glucose (Negative) mg/dL Negative HPI General Mode of arrival: ambulatory. Date/Time Provider Initiated Documentation: 07/05/20 08:21. Limitations to Documentation: no limitations. Information obtained by: patient, RN notes reviewed and old records reviewed. HPI Narrative: Malia Ledesma is a 29-year-old woman with a history of kidney stones presenting to the emergency department with bilateral flank pain. Per patient report and record review, patient was seen here 06/26 for flank pain, diagnosed with nonobstructing right nephrolithiasis, obstructing 5 mm left ureterolithiasis, mild hydronephrosis. Patient was discharged home at that time. She was seen here again for continued flank pain 06/28, and then again 06/30 for continued flank pain. Patient underwent renal ultrasound 06/30 with obstructing 1 cm stone noted at the left UPJ, mild hydronephrosis. Patient reports that she ran out of opiate pain medication yesterday. She reports that she has several doses of Toradol last, last dose of Toradol yesterday. Patient reports that pain is same location, quality as at her prior visit, but now more severe and located bilateral flank and bilateral lower quadrants equally. Patient states to me that she does not want another CT scan as she has had several, she states that she is sure this pain is related to her kidney stone, but is amenable to ultrasound. Patient reports that she has been eating and drinking without issue. She denies any other pain, fevers, shortness of breath, cough, vomiting, diarrhea, focal weakness, rash, dysuria. She states that she is currently having her period. Patient reports that she has had 5 kidney stones in the past. Related Data Home Medications Medication Instructions Recorded Confirmed triamcinolone acetonide 0.5 % 1 applic TP BID #15 gm 08/13/18 07/19/20 topical cream copper 380 square mm intrauterine 1 device IY ONCE 02/02/19 07/19/20 device sertraline 100 mg PO DAILY 06/26/20 07/19/20 hydromorphone 2 mg tablet 2 mg PO Q6H PRN #15 tab MDD 8mg 07/12/20 07/19/20 tamsulosin 0.4 mg capsule 0.4 mg PO DAILY #7 cap 07/12/20 07/19/20 acetaminophen 500 mg 07/17/20 ketorolac 10 mg PO Q6H PRN #12 tab 07/17/20 07/19/20 lorazepam 0.5 mg tablet 0.5 mg PO Q6H PRN #12 tab 07/18/20 07/19/20 Previous Rx's Medication Instructions Recorded triamcinolone acetonide 0.5 % 1 applic TP BID #15 gm 08/13/18 topical cream hydromorphone 2 mg tablet 2 mg PO Q6H PRN #15 tab MDD 8mg 07/12/20 tamsulosin 0.4 mg capsule 0.4 mg PO DAILY #7 cap 07/12/20 ketorolac 10 mg PO Q6H PRN #12 tab 07/17/20 lorazepam 0.5 mg tablet 0.5 mg PO Q6H PRN #12 tab 07/18/20 Allergies Allergy/AdvReac Type Severity Reaction Status Date / Time Penicillins AdvReac Intermediate Hives Verified 07/19/20 16:08 General Stated Complaint: FlankPain LETITIA: 3 Review of Systems Narrative: Constitutional: denies fevers Eyes: denies eye pain ENT: denies ear pain, dental pain, sore throat Cardiovascular: denies chest pain, edema Respiratory: denies SOB, cough GI: denies abdominal pain, vomiting, diarrhea : denies dysuria, reports b/l flank pain MSK: denies back pain, neck pain, arthralgias, myalgias Skin: denies rash Neuro: denies headaches, numbness, weakness PFSH Medical History Anxiety Depression Eczema History of acute pyelonephritis HPV in female IUD check up RTO in 1 year for annual exam. Normal menstrual pattern with paragard discussed. Positive test Pyelonephritis (12/19/16) Routine medical exam Vaginitis [place] History [place]05/18[place] [facility] [place]GD w/Bx for H.Pylori (07/29/08) [facility] Family History Father , OD at age 42. Substance abuse Essential hypertension Mother Mental disorder Bipolar d/o Neoplasm small cell neuroendocrine carcinoma Sister Substance abuse Mental disorder Bipolar d/o Brother Substance abuse Mental disorder Bipolar d/o Brother Substance abuse Mental disorder Bipolar d/o Grandmother Neoplasm Breast CA Social History Smoking/Tobacco Use Status: Current-Occasional Tobacco Type: cigarettes Counseling given: provider counseling Smoking risk assessment performed?: Yes Alcohol Intake: current Alcohol Intake frequency: a few times a month Alcohol type: beer, wine and hard liquor Details: Decided to quit drinking. Stopped 01/2019 Drug use: Occasionally Substance use type: marijuana Details: alcohol: t-4, one truly. Marijuana; t-1 one hit Adopted: No Foster care: No Household members: significant other and children Number of Children: 2 current occupation: [employer] Pets and animals: Yes (1 dog) What type of physical activity do you participate in: regular exercise Duration: other Details: cleaning Frequency: daily Do you feel safe at home: Yes Do you feel safe in your relationship?: Yes Female Reproductive History Menstrual control method: none History History 2 Para 2 Hx # Term Pregnancies 2 Multiple births 0 Hx # Pregnancies 0 Ectopic pregnancies 0 AB induced 0 Hx Number of Living Children 2 AB spontaneous 0 Past Pregnancies Del. Date GA/Weeks # Outcome Route Wgt Sex Labor Lgth Anesthesia Location Prov Compl 11/20/16 40 Successful vaginal 2920.001 g Female 9 hours regional 12/22/18 40 No Successful vaginal 3685.438 g Female [facility] Delivery Date: 11/20/16 Delivered at [facility] Delivery Date: 12/22/18 No notes to display Exam Narrative Exam Narrative: Constitutional: uncomfortable, [id number], pleasant, conversing normally HENT: head atraumatic/normocephalic/normal inspection, mucous membranes moist Eyes: conjunctiva normal, sclera normal, pupils 3mm b/l Neck: no stridor, normal ROM, trachea midline Chest: normal inspection Resp: normal work of breathing, LCTAB Cardio: normal rate, normal rhythm, no murmur appreciated GI: abdomen soft, mild TTP across lower abd without rebound or guarding, non-distended Back: normal inspection, no rash, b/l CVA TTP Skin: warm, dry, normal color, no rash Neuro: alert, not altered, grossly non-focal, normal tone Ext: no edema Psych: normal mood, normal affect, normal behavior Course Vital Signs Vital signs: Vital Signs Temperature 36.6 C 07/05/20 08:28 Pulse 80 07/05/20 08:28 Respiratory Rate 18 07/05/20 08:28 Blood Pressure 129/77 07/05/20 08:28 Pulse Oximetry 100 07/05/20 08:28 Temperature 36.6 C 07/05/20 08:28 Temperature Source Temporal Artery Scan 07/05/20 08:28 Pulse 80 07/05/20 08:28 Respiratory Rate 18 07/05/20 08:28 Respiratory Effort Non-Labored 07/05/20 08:33 Blood Pressure 129/77 07/05/20 08:28 Blood Pressure Position Sitting 07/05/20 08:28 Pulse Oximetry 100 07/05/20 08:28 Oxygen Delivery Method Room Air 07/05/20 08:28 Oxygen Flow Rate 0 07/05/20 08:28 Pain Level 10 07/05/20 08:28 Lab/Test Results Lab/Test Results: Laboratory Tests Range/Units 07/05/20 08:32 Urine Color (Yellow) Yellow Urine Clarity (Clear) Clear Urine pH (5-8) 6.0 Ur Specific Walker (1.005-1.025) 1.025 Urine Protein (Negative) mg/dL Trace H Urine Ketones (Negative) mg/dL Negative Urine Blood (Negative) Moderate H Urine Nitrite (Negative) Negative Urine Bilirubin (Negative) Negative Urine Urobilinogen (Up TO 0.2) EU/dL 0.2 Ur Leukocyte Esterase (Negative) Negative Urine RBC (0-2) HPF 20-50 H Urine WBC (0-5) HPF 3-5 Ur Epithelial Cells (Negative) HPF Few Urine Crystals (Negative) HPF Negative Urine Bacteria (Negative) HPF Few Urine Casts (Negative) LPF Negative Urine Mucus (Negative) Moderate Urine Other (Negative) Rare renal Ur Culture Indicated? No Urine Glucose (Negative) mg/dL Negative POC- Test(urine) Negative
[2020-07-05 09:16] LABS: Abs Immature Grans 0.03 10^3/uL (0.0-0.06); Absolute Lymphocyte Count 0.82 10^3/uL (1.2-3.4); Absolute Monocyte Count 0.61 10^3/uL (0.1-0.8); Absolute Neutrophil Count 9.29 10^3/uL (1.2-6.7); Basophils % 0.5; Eosinophils % 1.5; HCT 41.4 % (36.0-46.0); HGB 13.5 g/dL (11.2-15.7); Immature Grans % 0.3; Lymphocytes % 7.5; MCH 30.3 pg (27.0-33.0); MCHC 32.6 % (32.0-36.0); MPV 9.8 fL (8.0-11.0); Monocytes % 5.6; Neutrophils % 84.6; Nucleated RBC 0 %; Platelet Count 312 10^3/uL (130-400); RBC 4.45 10^6/uL (3.93-5.22); RDW 12.5 % (11.7-14.6); RDW-SD 42.9 fL; WBC 10.98 10^3/uL (4.4-10.8)
[2020-07-05 09:21] LABS: Absolute Basophil Count 0.05 10^3/uL (0.0-0.2); Absolute Eosinophil Count 0.16 10^3/uL (0.0-0.7)
[2020-07-05 09:34] LABS: ALT 24 U/L (14-59); AST 16 U/L (15-37); Albumin 3.8 g/dL (3.4-5.0); Alkaline Phosphatase 58 U/L (46-116); Anion Gap 10.8 mmol/L (3-11); BUN 15 mg/dL (7-18); Bilirubin, Total 0.3 mg/dL (0.2-1.0); CO2 28.2 mmol/L (21.0-32.0); Calcium 9.2 mg/dL (8.5-10.1); Chloride 104 mmol/L (98-107); Glucose 92 mg/dL (74-106); Potassium 4.7 mmol/L (3.5-5.1); Sodium 143 mmol/L (136-145); Total Protein 7.6 g/dL (6.4-8.2)
[2020-07-05] MEDS: HYDROmorphone 2 MG/ML VIAL 1 MG IVP (10:15)
[2020-07-05 11:01] VITALS: BP 108/82; PULSE 75; RESP 18; TEMP 36.8; O2SAT 99
--- NOTE | 2020-07-05 11:19 | NUR.NOTE ---
Nursing Note: Referral faxed to [facility] Urology to try to get earlier follow up before @ 9am. Gladys Mondragon
[2020-07-05 11:53] VITALS: BP 110/78; PULSE 67; RESP 20; TEMP 37.1; O2SAT 100
== END 2020-07-05 12:05 | disposition home or self-care (01) ==
PROVIDERS: Emergency Provider Student in an Organized Health Care Education/Training Program; PCP Family Medicine
DX: N13.2 Hydronephrosis with renal and ureteral calculous obstruction (principal); Z87.442 Personal history of urinary calculi
CPT/HCPCS: 36415; 76770; 80053; 81025; 96361; 96374; 96375; 99284; 81003; 81015; 85025; 99285; J1885

== ENCOUNTER 2020-07-11 10:21 | Emergency (ER) | payer MEDICAID, SELFPAY ==
[2020-07-11 10:25] VITALS: BP 130/93; PULSE 60; RESP 15; TEMP 36.4; O2SAT 100
[2020-07-11 10:33] LABS: Bilirubin Negative (Negative); Blood Large (Negative); Clarity Sl Cloudy (Clear); Glucose Negative (Negative); Ketones Negative (Negative); Leukocyte Esterase Negative (Negative); Nitrite Negative (Negative); Urobilinogen 0.2 EU/dL (Up TO 0.2); pH 7.5 (5-8)
[2020-07-11 10:40] LABS: Bacteria Few HPF (Negative); C & S Indicated? No/Sq. Contamination; Casts Negative LPF (Negative); Crystals Negative HPF (Negative); Epithelial Cells Many HPF (Negative); Mucus Moderate (Negative); RBC >50 HPF (0-2)
--- NOTE | 2020-07-11 11:00 | DI.US_ITS ---
EXAM: US RENAL CLINICAL HISTORY: known stone. L flank pain. TECHNIQUE: Dickey scale, color and spectral Doppler were used. COMPARISON: CT CT RENAL COLIC WO from 06/26/[address] RENAL COLIC WO from 06/26/2020 US US RENAL from 07/05/2020 FINDINGS: Renal size in cm: Right: 10.6 left: 11.7 Echogenicity: Normal Hydronephrosis: Stable mild left hydronephrosis. The previously noted stone in the upper left ureter is not visible on the exam however the proximal ureter is dilated. No right hydronephrosis. Cyst or mass: No Nephrolithiasis: 4 millimeter stone lower pole left kidney. Other findings: No perinephric collection. Bladder:Normal no bladder calculus Prevoid vol:221 Postvoid vol: 41 IMPRESSION: No change in mild left hydronephrosis. The previous stone is no longer visible in the proximal urete r and may have migrated more distally in the ureter. DATA REPOSITORY:
[2020-07-11] MEDS: Normal Saline 1,000 ML 1000 ML IV (11:06)
[2020-07-11 11:09] LABS: Abs Immature Grans 0.02 10^3/uL (0.0-0.06); Absolute Basophil Count 0.05 10^3/uL (0.0-0.2); Absolute Eosinophil Count 0.21 10^3/uL (0.0-0.7); Absolute Lymphocyte Count 0.92 10^3/uL (1.2-3.4); Absolute Monocyte Count 0.68 10^3/uL (0.1-0.8); Absolute Neutrophil Count 6.27 10^3/uL (1.2-6.7); Basophils % 0.6; Eosinophils % 2.6; HCT 40.2 % (36.0-46.0); HGB 12.8 g/dL (11.2-15.7); Immature Grans % 0.2; Lymphocytes % 11.3; MCH 30.3 pg (27.0-33.0); MCHC 31.8 % (32.0-36.0); MCV 95.3 fL (80-95); MPV 9.6 fL (8.0-11.0); Monocytes % 8.3; Nucleated RBC 0 %; Platelet Count 341 10^3/uL (130-400); RBC 4.22 10^6/uL (3.93-5.22); RDW 12.6 % (11.7-14.6); RDW-SD 43.9 fL; WBC 8.15 10^3/uL (4.4-10.8)
[2020-07-11 11:21] LABS: ALT 22 U/L (14-59); AST 15 U/L (15-37); Albumin 3.7 g/dL (3.4-5.0); Alkaline Phosphatase 64 U/L (46-116); Anion Gap 5.7 mmol/L (3-11); BUN 14 mg/dL (7-18); Bilirubin, Total 0.4 mg/dL (0.2-1.0); CO2 30.3 mmol/L (21.0-32.0); CREATININE 0.77 mg/dL (0.55-1.02); Chloride 105 mmol/L (98-107); Glucose 60 mg/dL (74-106); Lipase 93 U/L (73-393); Potassium 3.8 mmol/L (3.5-5.1); Sodium 141 mmol/L (136-145); Total Protein 7.5 g/dL (6.4-8.2)
[2020-07-11] MEDS: Tamsulosin 0.4 MG CAPCR PO (11:32)
[2020-07-11] MEDS: Ondansetron 4 MG/2 ML VIAL IVP (11:32)
[2020-07-11] MEDS: Ketorolac 30 MG/ML VIAL IVP (11:33)
[2020-07-11] MEDS: HYDROmorphone 2 MG/ML VIAL 1 MG IVP (11:33)
--- NOTE | 2020-07-11 12:26 | W.ED.GENAD ---
Discharge Plan Disposition Patient Disposition: HOME Condition: Stable Discharge Details Clinical Impression: Ureteral colic, Hydronephrosis Primary Care Provider: Margarito Curry ED Provider: Clyde Hair Home Meds and New Rx's Prescriptions: New hydromorphone [Dilaudid] 2 mg tablet 2 mg PO Q6H PRNQty: 3 RF: 0 tamsulosin [Flomax] 0.4 mg capsule 0.4 mg PO DAILY Qty: 5 RF: 0 Continued ParaGard T 380A 380 square mm intrauterine device 1 device IY ONCE RF: 0 triamcinolone acetonide 0.5 % cream 1 applic TP BID Qty: 15 RF: 1 sertraline 100 mg tablet 100 mg PO DAILY RF: 0 ketorolac 10 mg tablet 10 mg PO TID PRN PRNRF: 0 ketorolac 10 mg tablet 10 mg PO TID PRNQty: 6 RF: 0 Discontinued tamsulosin [Flomax] 0.4 mg capsule 0.4 mg PO DAILY Qty: 7 RF: 0 Discharge Instructions Instructions: Renal Colic (ED), Hydronephrosis (ED) Additional Instructions: Dilaudid and Flomax as directed. Remember Dilaudid may cause drowsiness and/or constipation. [id number] stool softeners will likely be beneficial while taking narcotic medication. Please watch for new or worsening symptoms and return to the ER for any concerns. Please follow-up with urology at 9 AM tomorrow as already scheduled. Stand Alone Forms: Work Release Discharge Data Discharge Date/Time-TO BE ENTERED AT DEPARTURE: 07/11/20 14:22 Medical Decision Making 29-year-old female with known bilateral renal stones, presenting for the fifth time to the ER for similar complaints. She reports that her kidney stone pain is acting back up, started yesterday worsening throughout the day. She feels as though this is extremely similar to her previous episodes. She has had CTs in the past and would prefer to avoid any radiation if at all possible. She is scheduled to see her urology team tomorrow at 9 AM but felt as though she could simply not wait that long. Will obtain IV access, give normal saline, 1 mg Dilaudid, Toradol, 4 mg IV Zofran. Will obtain CBC, CMP, urinalysis, test, and renal ultrasound. Patient is agreeable to this plan. Upon reevaluation patient reports significant relief of discomfort after being medicated. Laboratory values reveal a white blood cell count of 8.15 hemoglobin 12.8 hematocrit 40.2 platelet count 341, electrolytes are unremarkable, creatinine 0.77 with a GFR greater than 60. Glucose was 60. She denies any weakness, lightheadedness, faintness, etc. She was given orange juice and glucose trending upward. She was witnessed ambulating steadily to the bathroom multiple times. LFTs unremarkable. Lipase 93. Urinalysis is yellow, cloudy, large blood, greater than 50 red blood cells. 3-5 white blood cells many epithelial cells, few bacteria, negative leuk esterase, negative nitrate. Work-up reveals normal renal function, no clear indication of infection. Ultrasound of the kidneys reveal stable mild left hydronephrosis, the previously noted stone in the upper left ureter is no longer visible however the proximal ureter is dilated. Discussed work-up and findings with patient. She is relieved that there is no obvious signs of infection, no clear indication of worsening obstruction, and she did respond nicely to the pain medication. She feels as though she can go home safely and follow-up with urology at 9 AM as already scheduled. While she was waiting for her ride, her pain did become slightly worse, she was given 0.5 mg IV Dilaudid. I also gave her a work note for today. I refilled her prescription of 5 days worth of Flomax and 3 tablets of Dilaudid 2 mg. Patient has no additional questions or concerns upon discharge and again is comfortable with this plan. Medical Records Medical records reviewed: Yes I reviewed the patient's medical records. Imaging Data Radiologic Study: Attestation: I personally reviewed and interpreted this imaging study as follows: Imaging: Ultrasound Radiologist's impression: Renal ultrasound read by radiology as no change in mild left hydronephrosis. The previous stone is no longer visible in the proximal ureter and may have migrated more distally into the ureter. Lab Data Lab results reviewed: Yes I reviewed the patient's lab results. Lab results narrative: Laboratory Tests Range/Units 07/11/20 07/11/20 07/11/20 10:27 11:02 11:02 WBC (4.4-10.8) 10^3/uL 8.15 RBC (3.93-5.22) 10^6/uL 4.22 Hgb (11.2-15.7) g/dL 12.8 Hct (36.0-46.0) % 40.2 MCV (80-95) fL 95.3 H MCH (27.0-33.0) pg 30.3 MCHC (32.0-36.0) % 31.8 L RDW (11.7-14.6) % 12.6 Plt Count (130-400) 10^3/uL 341 MPV (8.0-11.0) fL 9.6 Immature Gran % 0.2 Neutrophils % 77.0 Lymphocytes % 11.3 Monocytes % 8.3 Eosinophils % 2.6 Basophils % 0.6 Nucleated RBC % % 0 Absolute Neutrophils (1.2-6.7) 10^3/uL 6.27 Absolute Lymphocytes (1.2-3.4) 10^3/uL 0.92 L Absolute Monocytes (0.1-0.8) 10^3/uL 0.68 Absolute Eosinophils (0.0-0.7) 10^3/uL 0.21 Absolute Basophils (0.0-0.2) 10^3/uL 0.05 Sodium (136-145) mmol/L 141 Potassium (3.5-5.1) mmol/L 3.8 Chloride (98-107) mmol/L 105 Carbon Dioxide (21.0-32.0) mmol/L 30.3 Anion Gap (3-11) mmol/L 5.7 BUN (7-18) mg/dL 14 Creatinine (0.55-1.02) mg/dL 0.77 Estimated GFR/1.73 m2 (mL/min/1.73m2) >= 60.00 Glucose (74-106) mg/dL 60 L Calcium (8.5-10.1) mg/dL 9.0 Total Bilirubin (0.2-1.0) mg/dL 0.4 AST (15-37) U/L 15 ALT (14-59) U/L 22 Alkaline Phosphatase (46-116) U/L 64 Total Protein (6.4-8.2) g/dL 7.5 Albumin (3.4-5.0) g/dL 3.7 Lipase (73-393) U/L 93 Urine Color (Yellow) Yellow Urine Clarity (Clear) Sl cloudy Urine pH (5-8) 7.5 Ur Specific [place] (1.005-1.025) 1.020 Urine Protein (Negative) mg/dL Trace H Urine Ketones (Negative) mg/dL Negative Urine Blood (Negative) Large H Urine Nitrite (Negative) Negative Urine Bilirubin (Negative) Negative Urine Urobilinogen (Up TO 0.2) EU/dL 0.2 Ur Leukocyte Esterase (Negative) Negative Urine RBC (0-2) HPF >50 H Urine WBC (0-5) HPF 3-5 Ur Epithelial Cells (Negative) HPF Many Urine Crystals (Negative) HPF Negative Urine Bacteria (Negative) HPF Few Urine Casts (Negative) LPF Negative Urine Mucus (Negative) Moderate Ur Culture Indicated? No/sq. contamination Urine Glucose (Negative) mg/dL Negative HPI General Mode of arrival: ambulatory. Date/Time Provider Initiated Documentation: 07/11/20 10:21. Limitations to Documentation: no limitations. Information obtained by: patient. HPI Narrative: This is a 29-year-old female with history of kidney stones who presents today complaining of left sided flank pain that began over the past 24 hours. She was originally seen in the ER on 06-26 and diagnosed with nonobstructing right nephrolithiasis and obstructing left ureterolithiasis. This is now her fourth visit since her initial presentation. She is scheduled to be seen by urology tomorrow now that the pain is worsening came to the ER for pain control. She reports the pain is moderate to severe, she reports that the pain causes her to have nausea but she is otherwise not nauseous, denies any vomiting. She reports urinary urgency and blood in her urine. She denies any fever, chest pain, back pain, anterior abdominal pain, vaginal discharge, recent illness or trauma. She does report that her pain starts in her back wraps around her flank and moves toward her groin. Of note her triage note reports vaginal area on fire. We discussed this in further length during or HPI. She to me denies any vaginal pain, discharge, suspected STD. Upon further clarification it is the pain radiates towards her groin that she was referring to. Related Data Home Medications Medication Instructions Recorded Confirmed triamcinolone acetonide 0.5 % 1 applic TP BID #15 gm 08/13/18 07/11/20 topical cream copper 380 square mm intrauterine 1 device IY ONCE 02/02/19 07/11/20 device sertraline 100 mg PO DAILY 06/26/20 07/11/20 ketorolac 10 mg PO TID PRN #6 tab 07/05/20 07/11/20 ketorolac 10 mg PO TID PRN PRN 07/05/20 07/11/20 hydromorphone [Dilaudid] 2 mg PO Q6H PRN #3 tab 07/11/20 tamsulosin [Flomax] 0.4 mg PO DAILY #5 cap 07/11/20 Previous Rx's Medication Instructions Recorded triamcinolone acetonide 0.5 % 1 applic TP BID #15 gm 08/13/18 topical cream ketorolac 10 mg PO TID PRN #6 tab 07/05/20 hydromorphone [Dilaudid] 2 mg PO Q6H PRN #3 tab 07/11/20 tamsulosin [Flomax] 0.4 mg PO DAILY #5 cap 07/11/20 Allergies Allergy/AdvReac Type Severity Reaction Status Date / Time Penicillins AdvReac Intermediate Hives Verified 07/11/20 10:34 General Stated Complaint: FlankPain LETITIA: 3 Review of Systems Constitutional Constitutional: Denies fever(s) Cardiovascular Cardiovascular: Denies chest pain and Denies dyspnea Respiratory Respiratory: Denies cough and Denies dyspnea Gastrointestinal Gastrointestinal: Reports abdominal pain (Left flank), Denies diarrhea, Reports nausea and Denies vomiting Genitourinary Genitourinary: Denies abnormal vaginal bleeding and Denies vaginal discharge Musculoskeletal Musculoskeletal: Reports back pain Integumentary/Breasts Skin/Breast: Denies rash [facility] Medical History Anxiety Depression Eczema History of acute pyelonephritis HPV in female IUD check up RTO in 1 year for annual exam. Normal menstrual pattern with paragard discussed. Positive test Pyelonephritis (12/19/16) Routine medical exam Vaginitis Surgical History Cystoscopy (01/05/18) [facility] [place] Urology with R ureteral stent placement EGD w/Bx for H.Pylori (07/29/08) Family History Father , OD at age 42. Substance abuse Essential hypertension Mother Mental disorder Bipolar d/o Neoplasm small cell neuroendocrine carcinoma Sister Substance abuse Mental disorder Bipolar d/o Brother Substance abuse Mental disorder Bipolar d/o Brother Substance abuse Mental disorder Bipolar d/o Grandmother Neoplasm Breast CA Social History Smoking/Tobacco Use Status: Current-Occasional Tobacco Type: cigarettes Counseling given: provider counseling Smoking risk assessment performed?: Yes Alcohol Intake: current Alcohol Intake frequency: a few times a month Details: Decided to quit drinking. Stopped 01/2019 Drug use: Occasionally Substance use type: marijuana Adopted: No Foster care: No Household members: significant other and children Number of Children: 2 current occupation: [employer] Pets and animals: Yes (1 dog) What type of physical activity do you participate in: regular exercise Duration: other Details: cleaning Frequency: daily Do you feel safe at home: Yes Do you feel safe in your relationship?: Yes Female Reproductive History Menstrual control method: none History History 2 Para 2 Hx # Term Pregnancies 2 Multiple births 0 Hx # Pregnancies 0 Ectopic pregnancies 0 AB induced 0 Hx Number of Living Children 2 AB spontaneous 0 Past Pregnancies Del. Date GA/Weeks # Outcome Route Wgt Sex Labor Lgth Anesthesia Location Prov Compl 11/20/16 40 Successful vaginal 2920.001 g Female 9 hours regional 12/22/18 40 No Successful vaginal 3685.438 g Female Vale [facility]auer CNM Delivery Date: 11/20/16 [facility] Delivery Date: 12/22/18 No notes to display Exam Const General: cooperative, healthy appearing, no acute distress and other (Appears slightly uncomfortable) Orientation: alert, awake and oriented x3 HENMT Head: normal to inspection, normocephalic and atraumatic Mouth: moist mucous membranes Eyes General: appearance normal, both eyes and all related structures Conjunctivae: conjunctivae normal Sclera: sclerae normal Neck Neck: normal visual inspection, full ROM, trachea midline and supple Resp Effort & Inspection: normal respiratory effort and able to speak in complete sentences Auscultation: clear to auscultation bilaterally Cardio Rate: regular rate Rhythm: regular rhythm GI Inspection: normal to inspection Palpation: soft, not firm, no guarding, no pulsatile masses and tender (Moderate to left flank, moderate palpation) Auscultation: normal bowel sounds Back/Spine/Pelvis Back: CVA tenderness (Left, mild) and back tenderness (Diffuse mild lumbar) Skin General skin exam: no rashes or lesions noted Neuro General: patient alert, patient awake, moves all extremities and no focal motor deficits Speech: speech normal Gait: normal gait Motor: muscle tone normal throughout Sensory Exam: no sensory deficits noted Extrem General: normal to inspection and full ROM Psych Appearance: grossly normal Mental Status: mental status grossly normal Course Vital Signs Vital signs: Vital Signs Temperature 36.4 C L 07/11/20 10:25 Pulse 60 07/11/20 10:25 Respiratory Rate 15 07/11/20 10:25 Blood Pressure 130/93 H 07/11/20 10:25 Pulse Oximetry 100 07/11/20 10:25 Temperature 36.4 C L 07/11/20 10:25 Temperature Source Temporal Artery Scan 07/11/20 10:25 Pulse 60 07/11/20 10:25 Respiratory Rate 15 07/11/20 10:25 Respiratory Effort Non-Labored 07/11/20 10:33 Blood Pressure 130/93 H 07/11/20 10:25 Blood Pressure Position Sitting 07/11/20 10:25 Pulse Oximetry 100 07/11/20 10:25 Oxygen Delivery Method Room Air 07/11/20 10:25 Oxygen Flow Rate 0 07/11/20 10:25 Pain Level 10 07/11/20 10:25 Lab/Test Results Lab/Test Results: Laboratory Tests Range/Units 07/11/20 07/11/20 07/11/20 10:27 11:02 11:02 WBC (4.4-10.8) 10^3/uL 8.15 RBC (3.93-5.22) 10^6/uL 4.22 Hgb (11.2-15.7) g/dL 12.8 Hct (36.0-46.0) % 40.2 MCV (80-95) fL 95.3 H MCH (27.0-33.0) pg 30.3 MCHC (32.0-36.0) % 31.8 L RDW (11.7-14.6) % 12.6 Plt Count (130-400) 10^3/uL 341 MPV (8.0-11.0) fL 9.6 Immature Gran % 0.2 Neutrophils % 77.0 Lymphocytes % 11.3 Monocytes % 8.3 Eosinophils % 2.6 Basophils % 0.6 Nucleated RBC % % 0 Absolute Neutrophils (1.2-6.7) 10^3/uL 6.27 Absolute Lymphocytes (1.2-3.4) 10^3/uL 0.92 L Absolute Monocytes (0.1-0.8) 10^3/uL 0.68 Absolute Eosinophils (0.0-0.7) 10^3/uL 0.21 Absolute Basophils (0.0-0.2) 10^3/uL 0.05 Sodium (136-145) mmol/L 141 Potassium (3.5-5.1) mmol/L 3.8 Chloride (98-107) mmol/L 105 Carbon Dioxide (21.0-32.0) mmol/L 30.3 Anion Gap (3-11) mmol/L 5.7 BUN (7-18) mg/dL 14 Creatinine (0.55-1.02) mg/dL 0.77 Estimated GFR/1.73 m2 (mL/min/1.73m2) >= 60.00 Glucose (74-106) mg/dL 60 L Calcium (8.5-10.1) mg/dL 9.0 Total Bilirubin (0.2-1.0) mg/dL 0.4 AST (15-37) U/L 15 ALT (14-59) U/L 22 Alkaline Phosphatase (46-116) U/L 64 Total Protein (6.4-8.2) g/dL 7.5 Albumin (3.4-5.0) g/dL 3.7 Lipase (73-393) U/L 93 Urine Color (Yellow) Yellow Urine Clarity (Clear) Sl cloudy Urine pH (5-8) 7.5 Ur Specific [place] (1.005-1.025) 1.020 Urine Protein (Negative) mg/dL Trace H Urine Ketones (Negative) mg/dL Negative Urine Blood (Negative) Large H Urine Nitrite (Negative) Negative Urine Bilirubin (Negative) Negative Urine Urobilinogen (Up TO 0.2) EU/dL 0.2 Ur Leukocyte Esterase (Negative) Negative Urine RBC (0-2) HPF >50 H Urine WBC (0-5) HPF 3-5 Ur Epithelial Cells (Negative) HPF Many Urine Crystals (Negative) HPF Negative Urine Bacteria (Negative) HPF Few Urine Casts (Negative) LPF Negative Urine Mucus (Negative) Moderate Ur Culture Indicated? No/sq. contamination Urine Glucose (Negative) mg/dL Negative POC- Test(urine) Negative
[2020-07-11 14:04] VITALS: BP 128/82; PULSE 72; RESP 16; TEMP 36.8; O2SAT 98
[2020-07-11] MEDS: HYDROmorphone 2 MG/ML VIAL 0.5 MG IVP (14:10)
== END 2020-07-11 14:22 | disposition home or self-care (01) ==
PROVIDERS: Emergency Provider Physician Assistant; PCP Family Medicine
DX: N13.2 Hydronephrosis with renal and ureteral calculous obstruction (principal); N23 Unspecified renal colic; Z87.442 Personal history of urinary calculi
CPT/HCPCS: 36415; 36416; 76770; 80053; 81025; 82962; 83690; 96361; 96374; 96375; 96376; 99284; 81003; 81015; 85025; J1885; J2405

== ENCOUNTER 2020-07-12 10:37 | Outpatient (CLI) | payer MEDICAID, SELFPAY ==
[2020-07-13 15:00] LABS: SARS-CoV-2 RNA Not Detected (NotDetected)
[2020-07-13 15:01] LABS: SARS-CoV-2 RNA Source Nasal/Nares
== END 2020-07-12 10:57 ==
PROVIDERS: PCP Family Medicine; Visit Provider Nurse Practitioner Gerontology
DX: Z11.59 Encounter for screening for other viral diseases (principal); Z01.818 Encounter for other preprocedural examination
CPT/HCPCS: U0003

== ENCOUNTER 2020-07-17 10:28 | Day surgery (SDC) | payer MEDICAID, SELFPAY ==
--- NOTE | 2020-07-17 07:33 | HPE_ITS ---
Assessment and Plan Assessment and plan (1) Ureterolithiasis: Status: Acute Assessment and plan: I suspect her stone has migrated down the ureter somewhat. We will plan a cystoscopy, left retrograde pyelogram, left ureteroscopy with holmium laser lithotripsy. With her concerns that her right renal stones have been moving, we will do a right retrograde pyelogram as well. If I am unable to access and treat the ureteral stone to completion today, we may need to address the stone in a staged procedure. History of Present Illness History of Present Illness Chief Complaint: Left ureteral stone Narrative: This is a 29 year old woman who has a history of urolithiasis. She has passed stones previously. On one occasion, she had a ureteral stent placed by the urology providers at [facility]. She did not recall having passed that particular stone, but no remaining ureteal stone was identified on ureteroscopy. She presents now with left renal colic which has been present intermittently for @ 3 weeks. She has had multiple ER visits for pain control. She has never had fevers or chills. She has not passed her stone as far as she recalls. She is known to have bilateral nonobstructing stones as well as has a larger proximal left ureteral stone. Her left-sided stone seems to have migrated further distally. She is concerned because she is now having some right-sided pain as well. She has no known history of gout or hyperparathyroidism. She is unsure of her previous stone chemistries. Review of Systems Narrative: No fevers or chills No vision change or dysphasia No diabetes or thyroid dysfunction No shortness of breath, cough or hemoptysis No chest pain or palpitations No hepatitis, ulcers, jaundice, diarrhea or constipation No seizures or peripheral neuropathy No bleeding disorders or anemia No gout or arthralgia History of anxiety and ADHD PFSH Medical History Anxiety Depression Eczema History of acute pyelonephritis HPV in female IUD check up RTO in 1 year for annual exam. Normal menstrual pattern with paragard discussed. Positive test Pyelonephritis (12/19/16) Routine medical exam Vaginitis Surgical History Cystoscopy (01/05/18) [facility] [place] Urology with R ureteral stent placement EGD w/Bx for H.Pylori (07/29/08) [facility] Family History Father , OD at age 42. Substance abuse Essential hypertension Mother Mental disorder Bipolar d/o Neoplasm small cell neuroendocrine carcinoma Sister Substance abuse Mental disorder Bipolar d/o Brother Substance abuse Mental disorder Bipolar d/o Brother Substance abuse Mental disorder Bipolar d/o Grandmother Neoplasm Breast CA Social History Smoking/Tobacco Use Status: Current-Occasional Tobacco Type: cigarettes Counseling given: provider counseling Smoking risk assessment performed?: Yes Alcohol Intake: current Alcohol Intake frequency: a few times a month Alcohol type: beer, wine and hard liquor Details: Decided to quit drinking. Stopped 01/2019 Drug use: Occasionally Substance use type: marijuana Details: alcohol: t-4, one truly. Marijuana; t-1 one hit Adopted: No Foster care: No Household members: significant other and children Number of Children: 2 current occupation: [employer] Pets and animals: Yes (1 dog) What type of physical activity do you participate in: regular exercise Duration: other Details: cleaning Frequency: daily Do you feel safe at home: Yes Do you feel safe in your relationship?: Yes Female Reproductive History Menstrual control method: none History History 2 Para 2 Hx # Term Pregnancies 2 Multiple births 0 Hx # Pregnancies 0 Ectopic pregnancies 0 AB induced 0 Hx Number of Living Children 2 AB spontaneous 0 Past Pregnancies Del. Date GA/Weeks # Outcome Route Wgt Sex Labor Lgth Anesthes ia Location [facility] 11/20/16 40 Successful vaginal 2920.001 g Female 9 hours regional 12/22/18 40 No Successful vaginal 3685.438 g Female [facility] CN[facility] Delivery Date: 11/20/16 Delivered at [place] [facility] Bauer Delivery Date: 12/22/18 No notes to display Meds Home Medications and Allergies Home Medications Medication Instructions Recorded Confirmed Type triamcinolone acetonide 0.5 % 1 applic TP BID #15 gm 08/13/18 07/17/20 Rx topical cream copper 380 square mm intrauterine 1 device IY ONCE 02/02/19 07/17/20 History device sertraline 100 mg PO DAILY 06/26/20 07/17/20 History hydromorphone 2 mg tablet 2 mg PO Q6H PRN #15 tab MDD 8mg 07/12/20 07/17/20 Rx tamsulosin 0.4 mg capsule 0.4 mg PO DAILY #7 cap 07/12/20 07/17/20 Rx acetaminophen [Tylenol Extra 500 mg 07/17/20 History Strength] Allergies Allergy/AdvReac Type Severity Reaction Status Date / Time Penicillins AdvReac Intermediate Hives Verified 07/17/20 11:05 Exam Narrative Exam Narrative: I reviewed her noncontrast CT scan from 06/26/2020. She had bilateral nonobstructing renal stones along with a triangular shaped left upper ureteral stone with hydronephrosis. Follow up renal ultrasounds showed persistent mild hydronephrosis on the left. The stone was initially seen sonographically, but is no longer visible on the study. Const General: cooperative Neck Neck: supple Resp Effort & Inspection: normal respiratory effort Auscultation: clear to auscultation bilaterally Cardio Rate: regular rate Rhythm: regular rhythm GI Palpation: soft and no masses Neuro General: patient alert, patient awake and patient oriented x3 COVID-19 Screening Have you, or household traveled for leisure in last 14 days?: No Had IN PERSON contact w/suspected or confirmed C-19 person: No
--- NOTE | 2020-07-17 11:13 | NUR.NOTE ---
pt. reports having coffee with milk in it aroung 0700 today. Fina Woodward RN contacted anesthesia, they said timing should be fine because MD has procedure prior to this one.Nursing Note:
[2020-07-17 11:16] VITALS: BP 125/78; PULSE 65; RESP 16; TEMP 36; O2SAT 100
[2020-07-17] MEDS: Lactated Ringers 1,000 ML 80 ML IV (11:55)
[2020-07-17] MEDS: CIPROFLOXACIN 400 MG/200 ML BAG 200 MG IVPB (12:01)
[2020-07-17] MEDS: Droperidol 5 MG/2 ML VIAL 0.625 MG IVP (12:53)
[2020-07-17] MEDS: Ondansetron 4 MG/2 ML VIAL IVP (12:53)
[2020-07-17] MEDS: Midazolam 2 MG/2 ML VIAL IVP (13:21)
--- NOTE | 2020-07-17 14:00 | DI.RAD_ITS ---
EXAM: XR RETROGRADE IN OR INDICATION: KIDNEY STONES. COMPARISON: No exams were available for comparison TECHNIQUE: 2D digital imaging was performed. FINDINGS: C-arm fluoroscopy was utilized by Dr. Fernandez during retrograde ureterography nidhi doyle. Hard copy calos w placement of a ureteral stent, presumably on the left. Fluoro time, 26 seconds. IMPRESSION: DATA REPOSITORY: RADIATION DOSE DELIVERED:
--- NOTE | 2020-07-17 14:06 | ROE_ITS ---
Date of service: 07/17/20 Time of Service: 15:43 Operative Note Operative Note DATE OF PROCEDURE: 07/17/20 PRE-OP DIAGNOSIS: Left Ureteral stone POST-OP DIAGNOSIS: same PROCEDURE: Cystoscopy, bilateral retrograde pyelogram, left ureteroscopy with holmium laser lithotripsy of stone, extraction of stone fragments, insert left ureteral stent SURGEON: Xavier Fernandez ANESTHESIA: GETA ESTIMATED BLOOD LOSS: 10 PATHOLOGY: other (Stone for chemical analysis) COMPLICATIONS: None Patient was transported to: PACU Patient's condition: stable Implants: 4.8 [place]ian by 22 to 30 cm ureteral stent Indications: Please send a 29-year-old 1 month for the past history of bilateral kidney stones. She presented to the emergency room about 3 weeks ago with a left proximal ureteral stone. She has not passed the stone and has had persistent symptoms. She presents for ureteroscopy and stone manipulation. Since her initial presentation, she has developed right flank pain. She is agreeable to right retrograde pyelogram and possible stone manipulation if one of her renal stones has migrated into the ureter. Findings: No right ureteral stone Left distal ureteral stone Procedure Description: The patient was brought to the operating room on 07/17/2020. She is given preoperative antibiotics. After successful induction of general anesthesia, she was placed in the dorsal lithotomy position. Her genitalia was prepped and draped. 2% Xylocaine jelly was instilled into the urethra to act as a local anesthetic. A 22 [place]ian rigid cystoscope was passed through the urethra into the bladder. The bladder was inspected with a 30 degree lens. Both ureteral orifices appeared normal. No blood was seen coming from either side. We cannulated the right ureteral orifice with a 6 Colombian access catheter. Retrograde pyelogram was obtained by injecting Omnipaque through the access catheter under fluoroscopic guidance. The ureter appeared normal with no filling defects. The right kidney and ureter drained promptly. On the left side, we cannulated the orifice and injected Omnipaque. In this case, a filling defect was seen in the left distal ureter. I was able to pass a guidewire through the access catheter up the left ureter. The cystoscope was removed and a semirigid ureteroscope was then introduced through the urethra into the bladder. The scope was advanced into the left ureteral orifice and advanced up the ureter until a large stone was identified. The stone was treated with a 365 ?m laser fiber. The power setting of 80 and a rate of 8 to fracture the stone. Fragments were extracted using a [employer] stone basket. Fragments were sent for analysis. Because there were several small fragments remaining, we elected to place a left ureteral stent. We chose a 4.8 [place]ian variable length stent and advanced it over the wire. The proximal end of the stent was curled in the renal pelvis and the distal end was curled in the bladder. The positioning of the stent was confirmed fluoroscopically and cystoscopically. The safety string was left attached to the stent and brought through the urethral meatus. We tucked the end of the safety string into the vaginal cavity. Patient tolerated this procedure well with no complications.
--- NOTE | 2020-07-17 15:35 | W.PM.DSUDISC ---
Discharge Plan Disposition Patient Disposition: HOME Condition: Stable Discharge Details Reason For Visit: ureteral stone Attending Provider: Xavier Fernandez Primary Care Provider: Margarito Curry Home Meds and New Rx's Prescriptions: New ketorolac 10 mg tablet 10 mg PO Q6H PRN (Reason: pain) Qty: 12 RF: 0 No Action ParaGard T 380A 380 square mm intrauterine device 1 device IY ONCE RF: 0 hydromorphone [Dilaudid] 2 mg tablet 2 mg PO Q6H MDD 8mg PRN (Reason: pain (scale score 7-10)) Qty: 15 RF: 0 tamsulosin [Flomax] 0.4 mg capsule 0.4 mg PO DAILY Qty: 7 RF: 0 triamcinolone acetonide 0.5 % cream 1 applic TP BID Qty: 15 RF: 1 sertraline 100 mg tablet 100 mg PO DAILY RF: 0 acetaminophen [Tylenol Extra Strength] 500 mg Capsule 500 mg RF: 0 Discharge Instructions Additional Instructions: No need to strain urine F/U 3 to 4 days for stent removal (tell my office there is a string on the stent) F/U appt with me 4 to 6 weeks with renal ultrasound and stone analysis script for Toradol sent to pharmacy Activity:: Activity as Tolerated Shower/Bathe:: 24 hours Diet:: As Tolerated DS: Diagnosis Discharge Diagnosis (1) Ureterolithiasis: Status: Acute
[2020-07-17 15:42] VITALS: BP 95/71; PULSE 52; RESP 16; TEMP 36.4; O2SAT 100
[2020-07-17 15:47] VITALS: BP 99/64; PULSE 50; RESP 16; TEMP 36.4; O2SAT 100
[2020-07-17 15:52] VITALS: BP 103/60; PULSE 38; RESP 11; TEMP 36.4; O2SAT 97
[2020-07-17] MEDS: Lidocaine 2% Jelly 6 ML SYR (16:02)
[2020-07-17] MEDS: Omnipaque 300 MG/ML 50 ML BTL (16:02)
[2020-07-17 16:05] VITALS: BP 100/61; PULSE 41; RESP 17; TEMP 36.4; O2SAT 97
[2020-07-17] MEDS: Phenazopyridine 200 MG TAB PO (16:23)
--- NOTE | 2020-07-17 16:29 | W.PM.DSUDISC ---
Discharge Plan Disposition Patient Disposition: HOME Condition: Stable Discharge Details Reason For Visit: ureteral stone Attending Provider: Xavier Fernandez Primary Care Provider: Margarito Curry Home Meds and New Rx's Prescriptions: New ketorolac 10 mg tablet 10 mg PO Q6H PRN (Reason: pain) Qty: 12 RF: 0 hydromorphone [Dilaudid] 2 mg tablet 2 mg PO Q6H PRNQty: 12 RF: 0 No Action Para[employer]ard T 380A 380 square mm intrauterine device 1 device IY ONCE RF: 0 hydromorphone [Dilaudid] 2 mg tablet 2 mg PO Q6H MDD 8mg PRN (Reason: pain (scale score 7-10)) Qty: 15 RF: 0 tamsulosin [Flomax] 0.4 mg capsule 0.4 mg PO DAILY Qty: 7 RF: 0 triamcinolone acetonide 0.5 % cream 1 applic TP BID Qty: 15 RF: 1 sertraline 100 mg tablet 100 mg PO DAILY RF: 0 acetaminophen [Tylenol Extra Strength] 500 mg Capsule 500 mg RF: 0 Discharge Instructions Additional Instructions: No need to strain urine F/U 3 to 4 days for stent removal (tell my office there is a string on the stent) F/U appt with me 4 to 6 weeks with renal ultrasound and stone analysis script for Toradol sent to pharmacy Stand Alone Forms: [facility] Morrissey ([facility]) Activity:: Activity as Tolerated Shower/Bathe:: 24 hours Diet:: As Tolerated DS: Diagnosis Discharge Diagnosis (1) Ureterolithiasis: Status: Acute
[2020-07-17] MEDS: HYDROmorphone 2 MG TAB PO (16:50)
[2020-07-17 16:55] VITALS: BP 118/80; PULSE 64; RESP 16; TEMP 36.1; O2SAT 95
[2020-07-17] MEDS: LORazepam 0.5 MG TAB PO (17:29)
== END 2020-07-17 18:04 | disposition home or self-care (01) ==
PROVIDERS: PCP Family Medicine; Visit Provider Urology
PROC: (CPT 52356; principal; 2020-07-17 13:00)
DX: N20.1 Calculus of ureter (principal); F41.9 Anxiety disorder, unspecified; F32.9 Major depressive disorder, single episode, unspecified; F17.210 Nicotine dependence, cigarettes, uncomplicated
CPT/HCPCS: 52356; NC; 74420; J0744; J1100; J1790; J1885; J2001; J2250; J2370; J2405; Q9967

== ENCOUNTER 2020-07-17 20:20 | Outpatient (REF) | payer MEDICAID, SELFPAY ==
[2020-07-21 14:56] LABS: Source: Left Kidney
== END 2020-07-17 20:40 ==
LOC: LBN 20:20
PROVIDERS: PCP Family Medicine; Visit Provider Urology
DX: N20.0 Calculus of kidney (principal)
CPT/HCPCS: 82365

== ENCOUNTER 2020-07-19 12:12 | Emergency (ER) | payer MEDICAID, SELFPAY ==
[2020-07-19 12:17] VITALS: BP 134/83; PULSE 80; RESP 16; TEMP 36; O2SAT 100
--- NOTE | 2020-07-19 12:45 | DI.US_ITS ---
EXAM: US RENAL CLINICAL HISTORY: L flank pain worse after procedure on friday TECHNIQUE: Ultrasound performed using standard protocol. COMPARISON: CT CT RENAL COLIC WO from 06/26/2020 US US RENAL from 07/11/2020 FINDINGS: Kidneys are normal in size and shape. There are multiple bilateral renal echogenic foci, recent abdo jeevan CT showed us solitary nonobstructing right renal calculus and multiple left renal calculi. Prior CT showed a left 5 millimeter UPJ or proximal ureteral stone. There is an echogenic focus now visible in the ureterovesical junction on the left, this may represent the previously noted ureteral calculus. There is note also made of phlebolith near the ureterovesical junction seen on the prior C T, alternatively the echogenic focus now visible ultrasound a graphically at the UVJ could represent this phlebolith. There is a visible ureteral jet on the left, there is moderate left hydronephrosis. No right hydronephrosis. Unremarkable appearance of the urinary bladder, pre and postvoid urinary bl adder volume measured at 457 cc and 19 cc respectively. IMPRESSION: Persists distant left hydronephrosis, suspect left ureterovesical junction stone. Follow-up with CT urogram may be considered to more accurately evaluate the cause of the obstructive process on the lef t. DATA REPOSITORY:
[2020-07-19] MEDS: Normal Saline 1,000 ML 1000 ML IV (12:50)
[2020-07-19 12:52] LABS: Abs Immature Grans 0.02 10^3/uL (0.0-0.06); Absolute Basophil Count 0.07 10^3/uL (0.0-0.2); Absolute Eosinophil Count 0.19 10^3/uL (0.0-0.7); Absolute Lymphocyte Count 1.14 10^3/uL (1.2-3.4); Absolute Neutrophil Count 7.67 10^3/uL (1.2-6.7); Basophils % 0.7; Eosinophils % 1.9; HCT 44.8 % (36.0-46.0); HGB 14.2 g/dL (11.2-15.7); Immature Grans % 0.2; Lymphocytes % 11.5; MCH 30.3 pg (27.0-33.0); MCHC 31.7 % (32.0-36.0); MCV 95.5 fL (80-95); MPV 9.5 fL (8.0-11.0); Monocytes % 8.1; Neutrophils % 77.6; Nucleated RBC 0 %; Platelet Count 349 10^3/uL (130-400); RBC 4.69 10^6/uL (3.93-5.22); RDW 12.2 % (11.7-14.6); RDW-SD 43.4 fL; WBC 9.89 10^3/uL (4.4-10.8)
[2020-07-19 12:59] LABS: Bilirubin Negative (Negative); Blood Large (Negative); Clarity Sl Cloudy (Clear); Glucose Negative (Negative); Ketones Negative (Negative); Leukocyte Esterase Trace (Negative); Nitrite Negative (Negative); Specific Gravity 1.015 (1.005-1.025); Urobilinogen 0.2 EU/dL (Up TO 0.2); pH 6.5 (5-8)
[2020-07-19 13:04] LABS: ALT 17 U/L (14-59); AST 10 U/L (15-37); Alkaline Phosphatase 63 U/L (46-116); Anion Gap 6.3 mmol/L (3-11); BUN 11 mg/dL (7-18); Bilirubin, Total 0.5 mg/dL (0.2-1.0); CO2 27.7 mmol/L (21.0-32.0); Chloride 102 mmol/L (98-107); Glucose 92 mg/dL (74-106); Potassium 4.1 mmol/L (3.5-5.1); Sodium 136 mmol/L (136-145)
[2020-07-19 13:15] LABS: Bacteria Few HPF (Negative); C & S Indicated? Yes; Casts Negative LPF (Negative); Crystals Negative HPF (Negative); Epithelial Cells Rare HPF (Negative); Mucus Trace (Negative); RBC >50 HPF (0-2)
[2020-07-19] MEDS: HYDROmorphone 2 MG/ML VIAL 0.5 MG IVP ×2 (13:44→15:49)
[2020-07-19 14:45] VITALS: BP 123/95; PULSE 71; RESP 18; O2SAT 100
--- NOTE | 2020-07-19 14:45 | NUR.NOTE ---
Nursing Note:Patient requesting pain medication, coffee and to have her water bottle refilled. Discussed with Provider. States he was hoping she could hold off until after her US and he would give her another dose of Dilaudid prior to discharge. Patient to remain NPO until US results are back r/t possible need for intervention. US is squeezing patient in and hopefully will be around 1500 but not firm time. Patient updated on all of this. Patient does not appear to be in any discomfort, sitting cross legged on stretcher, does not make eye contact. No c/o nausea and no vomiting since arrival. Patient agrees with POC at this time and states she understands.
--- NOTE | 2020-07-19 15:07 | W.ED.GENAD ---
Discharge Plan Disposition Patient Disposition: HOME Discharge Details Clinical Impression: Hydronephrosis, Pain Primary Care Provider: Margarito Curry ED Provider: Alaina Koenig Home Meds and New Rx's Prescriptions: Continued ParaGard T 380A 380 square mm intrauterine device 1 device IY ONCE RF: 0 hydromorphone [Dilaudid] 2 mg tablet 2 mg PO Q6H MDD 8mg PRN (Reason: pain (scale score 7-10)) Qty: 15 RF: 0 tamsulosin [Flomax] 0.4 mg capsule 0.4 mg PO DAILY Qty: 7 RF: 0 triamcinolone acetonide 0.5 % cream 1 applic TP BID Qty: 15 RF: 1 lorazepam [Ativan] 0.5 mg tablet 0.5 mg PO Q6H PRN (Reason: anxiety/muscle relaxation) Qty: 12 RF: 0 sertraline 100 mg tablet 100 mg PO DAILY RF: 0 acetaminophen 500 mg Capsule 500 mg RF: 0 ketorolac 10 mg tablet 10 mg PO Q6H PRN (Reason: pain) Qty: 12 RF: 0 Discharge Instructions Instructions: Hydronephrosis (ED) Additional Instructions: Please encourage water intake. You may continue with pain medications as previously prescribed. Please follow-up closely with urology. You may call in the morning to schedule follow-up appointment. Any of your urinary culture comes back indicative of infection we will call you. If you develop any new or worsening symptoms please seek care urgently once again. You may discuss further pain management options with your primary care or urology. Referrals: Xavier Fernandez MD [ [facility] STAFF PHYSICIAN] - Margarito Curry [Primary Care Provider] - Discharge Data Discharge Date/Time-TO BE ENTERED AT DEPARTURE: 07/19/20 17:03 Medical Decision Making <FRANKLIN Qureshi - Last Filed: 07/20/20 16:29> 29-year-old female with known renal stones, stent placement and lithotripsy on Friday by Dr. Fernandez. She presents reporting the pain is not improved whatsoever with the current medications. She removed the stent herself today. Clinically she appears well, nontoxic, and in no acute distress. Blood pressure 134/82, pulse 80 respirations 16, she is afebrile and O2 sats 100% on room air. She does request water, crackers, coffee. She was also witnessed ambulating steadily to the restroom. I do believe that obtaining CBC, CMP, urinalysis, test is completely reasonable. We will give IV fluid and 0.5 mg IV Dilaudid. Given her complicated recent history I have placed a call to urology for consultation. I did consult neurology, FIELD EDUCATION COORDINATOR Deepak. She felt as though the CBC, CMP, urinalysis and urine was appropriate. She also felt that the patient was on the appropriate medications and did not believe that any changes were emergently necessary. With her multiple visits, and her overall presentation, she did question if there could be a component of drug seeking, and I do have the same concern. Patient has been on Dilaudid for nearly 3 weeks, certainly could be establishing tolerance with the medication. She feels as though from a urology standpoint we could certainly add on a renal ultrasound to be sure that her hydronephrosis has not gotten worse but otherwise does not recommend additional studies here in the ER and feels as though she can continue with the plan set forth by Dr. Fernandez. Patient does become agitated, tells me that she feels as though she is being treated like a junky, is tearful, using profane language. I explained to her that I am trying to treat her pain, she has been treated with Dilaudid. I am taking her complaint very seriously, has establish IV access, obtain laboratory values and I have consulted with urology. I have requested that our ER hospital nursing assistant and store warehouse associate come speak with the patient regarding her ongoing concerns. They did speak with the patient, please see their note. We also requested that care management come evaluate the patient as well. Patient is awaiting ultrasound. Her initial laboratory values do not reveal any obvious emergent process. White blood cell count of 9.89, creatinine 0.80 with a GFR greater than 60. Urinalysis trace leukoesterase greater than 50 red cells 5-10 white cells rare epithelials, few bacteria, negative nitrate, culture pending. No clear UTI, will not treat with antibiotics. Patient given a second dose of 0.5 mg IV Dilaudid At time of signout to my colleague FRANKLIN Koenig, US results and final disposition pending. Medical Records Medical records reviewed: Yes I reviewed the patient's medical records. Lab Data Lab results reviewed: Yes I reviewed the patient's lab results. Lab results narrative: 07/19/20 12:30 Urine - Reflex from Ua Urine Culture - Pending Laboratory Tests Range/Units 07/19/20 07/19/20 07/19/20 12:30 12:47 12:47 WBC (4.4-10.8) 10^3/uL 9.89 RBC (3.93-5.22) 10^6/uL 4.69 Hgb (11.2-15.7) g/dL 14.2 Hct (36.0-46.0) % 44.8 MCV (80-95) fL 95.5 H MCH (27.0-33.0) pg 30.3 MCHC (32.0-36.0) % 31.7 L RDW (11.7-14.6) % 12.2 Plt Count (130-400) 10^3/uL 349 MPV (8.0-11.0) fL 9.5 Immature Gran % 0.2 Neutrophils % 77.6 Lymphocytes % 11.5 Monocytes % 8.1 Eosinophils % 1.9 Basophils % 0.7 Nucleated RBC % % 0 Absolute Neutrophils (1.2-6.7) 10^3/uL 7.67 H Absolute Lymphocytes (1.2-3.4) 10^3/uL 1.14 L Absolute Monocytes (0.1-0.8) 10^3/uL 0.80 Absolute Eosinophils (0.0-0.7) 10^3/uL 0.19 Absolute Basophils (0.0-0.2) 10^3/uL 0.07 Sodium (136-145) mmol/L 136 Potassium (3.5-5.1) mmol/L 4.1 Chloride (98-107) mmol/L 102 Carbon Dioxide (21.0-32.0) mmol/L 27.7 Anion Gap (3-11) mmol/L 6.3 BUN (7-18) mg/dL 11 Creatinine (0.55-1.02) mg/dL 0.80 Estimated GFR/1.73 m2 (mL/min/1.73m2) >= 60.00 Glucose (74-106) mg/dL 92 Calcium (8.5-10.1) mg/dL 9.0 Total Bilirubin (0.2-1.0) mg/dL 0.5 AST (15-37) U/L 10 L ALT (14-59) U/L 17 Alkaline Phosphatase (46-116) U/L 63 Total Protein (6.4-8.2) g/dL 8.0 Albumin (3.4-5.0) g/dL 4.0 Urine Color (Yellow) [place] Urine Clarity (Clear) Sl cloudy Urine pH (5-8) 6.5 Ur Specific [place] (1.005-1.025) 1.015 Urine Protein (Negative) mg/dL 100 H Urine Ketones (Negative) mg/dL Negative Urine Blood (Negative) Large H Urine Nitrite (Negative) Negative Urine Bilirubin (Negative) Negative Urine Urobilinogen (Up TO 0.2) EU/dL 0.2 Ur Leukocyte Esterase (Negative) Trace H Urine RBC (0-2) HPF >50 H Urine WBC (0-5) HPF 5-10 Ur Epithelial Cells (Negative) HPF Rare Urine Crystals (Negative) HPF Negative Urine Bacteria (Negative) HPF Few Urine Casts (Negative) LPF Negative Urine Mucus (Negative) Trace Ur Culture Indicated? Yes Urine Glucose (Negative) mg/dL Negative <FRANKLIN Sexton - Last Filed: 07/19/20 21:12> Care transition myself discussed with patientGABINO with ultrasound pending. Please see his initial note regarding history, presentation and work-up completed thus far. Radiologist called to discuss results. He notes left hydronephrosis. He advised that there is echogenic focus at the distal left ureter. However, in comparing with a previous CT he is unclear if this is stone versus phlebolith that was noted there historically. He does note a urinary jet and does not note any evidence to suggest complete obstruction. I discussed his findings with the patient. Initially, she seemed quite relieved. We will having a pleasant conversation regarding her difficulty with chronic nephrolithiasis. However, the patient then asked about stronger pain medications and I advised that we would not be prescribing any increased dosing of her narcotics in the emergency department. She does report that she has Toradol as well as Dilaudid at home. Advised that she can continue with the medication she was previously prescribed further increase in her chronic narcotic usage should be monitored by urology and/or primary care. Patient became very angry, raising her voice and accusing department as not doing her job. She and I did discuss with the goal of the emergency department was to evaluate for any life-threatening pathology. Prior to her becoming angry, and even during her angry episode, she did not appear to be in any distress and appears quite comfortable. We did discuss return precautions. However, I did encourage close follow-up to discuss management further of her pain with your primary care urology. She feels that after 1 month of chronic Dilaudid she is developing tolerance and would like to think. All of her questions or concerns were addressed. HPI <FRANKLIN Qureshi - Last Filed: 07/20/20 16:29> General Mode of arrival: ambulatory. Date/Time Provider Initiated Documentation: 07/19/20 12:13. Limitations to Documentation: no limitations. Information obtained by: patient. HPI Narrative: 29-year-old female with past medical history that includes anxiety, depression, pyelonephritis, multiple recent ER visits for renal colic, presents for left flank discomfort that has been ongoing for several weeks. She has been seen in the ER multiple times, referred to urology. Had a stent placed on Friday with lithotripsy by Dr. Fernandez. She states the procedure went well but her pain really never got better. She continues to complain of left-sided flank pain, mild nausea, not really helped with all the medications that she is currently taking. She removed the urethral stent today herself. She contacted urology office multiple times and was directed to the ER. She denies fever, anterior abdominal pain, vomiting, dysuria, vaginal bleeding or discharge. Related Data Home Medications Medication Instructions Recorded Confirmed triamcinolone acetonide 0.5 % 1 applic TP BID #15 gm 08/13/18 07/19/20 topical cream copper 380 square mm intrauterine 1 device IY ONCE 02/02/19 07/19/20 device sertraline 100 mg PO DAILY 06/26/20 07/19/20 hydromorphone 2 mg tablet 2 mg PO Q6H PRN #15 tab MDD 8mg 07/12/20 07/19/20 tamsulosin 0.4 mg capsule 0.4 mg PO DAILY #7 cap 07/12/20 07/19/20 acetaminophen 500 mg 07/17/20 ketorolac 10 mg PO Q6H PRN #12 tab 07/17/20 07/19/20 lorazepam 0.5 mg tablet 0.5 mg PO Q6H PRN #12 tab 12/01/20 12/02/20 Previous Rx's Medication Instructions Recorded triamcinolone acetonide 0.5 % 1 applic TP BID #15 gm 08/13/18 topical cream hydromorphone 2 mg tablet 2 mg PO Q6H PRN #15 tab MDD 8mg 07/12/20 tamsulosin 0.4 mg capsule 0.4 mg PO DAILY #7 cap 07/12/20 ketorolac 10 mg PO Q6H PRN #12 tab 07/17/20 lorazepam 0.5 mg tablet 0.5 mg PO Q6H PRN #12 tab 07/18/20 Allergies Allergy/AdvReac Type Severity Reaction Status Date / Time Penicillins AdvReac Intermediate Hives Verified 07/19/20 16:08 General Stated Complaint: FlankPain LETITIA: 3 Review of Systems <FRANKLIN Qureshi - Last Filed: 07/20/20 16:29> Constitutional Constitutional: Denies fever(s) Cardiovascular Cardiovascular: Denies chest pain and Denies dyspnea Respiratory Respiratory: Denies cough and Denies dyspnea Gastrointestinal Gastrointestinal: Reports abdominal pain (Left flank), Reports nausea and Denies vomiting Genitourinary Genitourinary: Denies abnormal vaginal bleeding, Reports urinary urgency (Ongoing for the past few weeks) and Denies vaginal discharge Musculoskeletal Musculoskeletal: Reports back pain (Associated with left flank) Integumentary/Breasts Skin/Breast: Denies rash PFSH <FRANKLIN Qureshi - Last Filed: 07/20/20 16:29> Medical History Anxiety Depression Eczema History of acute pyelonephritis HPV in female IUD check up RTO in 1 year for annual exam. Normal menstrual pattern with paragard discussed. Positive test Pyelonephritis (12/19/16) Routine medical exam Vaginitis Surgical History Cystoscopy (01/05/18) [facility] [place] Urology with R ureteral stent placement EGD w/Bx for H.Pylori (07/29/08) [facility] Family History Father , OD at age 42. Substance abuse Essential hypertension Mother Mental disorder Bipolar d/o Neoplasm small cell neuroendocrine carcinoma Sister Substance abuse Mental disorder Bipolar d/o Brother Substance abuse Mental disorder Bipolar d/o Brother Substance abuse Mental disorder Bipolar d/o Grandmother Neoplasm Breast CA Social History Smoking/Tobacco Use Status: Current-Occasional Tobacco Type: cigarettes Counseling given: provider counseling Smoking risk assessment performed?: Yes Alcohol Intake: current Alcohol Intake frequency: a few times a month Alcohol type: beer, wine and hard liquor Details: Decided to quit drinking. Stopped 01/2019 Drug use: Occasionally Substance use type: marijuana Details: alcohol: t-4, one truly. Marijuana; t-1 one hit Adopted: No Foster care: No Household members: significant other and children Number of Children: 2 current occupation: [employer] Pets and animals: Yes (1 dog) What type of physical activity do you participate in: regular exercise Duration: other Details: cleaning Frequency: daily Do you feel safe at home: Yes Do you feel safe in your relationship?: Yes Female Reproductive History Menstrual control method: none History History 2 Para 2 Hx # Term Pregnancies 2 Multiple births 0 Hx # Pregnancies 0 Ectopic pregnancies 0 AB induced 0 Hx Number of Living Children 2 AB spontaneous 0 Past Pregnancies Del. Date GA/Weeks # Outcome Route Wgt Sex Labor Lgth Anesthesia Location [facility] 11/20/16 40 Successful vaginal 2920.001 g Female 9 hours regional 12/22/18 40 No Successful vaginal 3685.438 g Female [facility] CNM Delivery Date: 11/20/16 Delivered at [facility] Delivery Date: 12/22/18 No notes to display Exam <FRANKLIN Qureshi - Last Filed: 07/20/20 16:29> Const General: cooperative, healthy appearing, comfortable and no acute distress Orientation: alert and awake HENMT Head: normal to inspection, normocephalic and atraumatic Mouth: moist mucous membranes Eyes General: appearance normal, both eyes and all related structures Conjunctivae: conjunctivae normal Sclera: sclerae normal Neck Neck: normal visual inspection, full ROM, trachea midline and supple Resp Effort & Inspection: normal respiratory effort and able to speak in complete sentences Auscultation: clear to auscultation bilaterally Cardio Rate: regular rate Rhythm: regular rhythm GI Inspection: normal to inspection Palpation: soft, not firm, no guarding, no pulsatile masses and tender (Diffuse left flank to moderate palpation) with no rebound tenderness Auscultation: normal bowel sounds Back/Spine/Pelvis Back: no CVA tenderness and back tenderness (Diffuse left lumbar) Skin General skin exam: no rashes or lesions noted Neuro General: patient alert, patient awake, moves all extremities and no focal motor deficits Cognition: normal cognition Gait: normal gait Motor: muscle tone normal throughout Sensory Exam: no sensory deficits noted Psych Appearance: grossly normal Mental Status: mental status grossly normal Course <FRANKLIN Qureshi - Last Filed: 07/20/20 16:29> Vital Signs Vital signs: Vital Signs Temperature 36 C L 07/19/20 12:17 Pulse 80 07/19/20 12:17 Respiratory Rate 16 07/19/20 12:17 Blood Pressure 134/83 07/19/20 12:17 Pulse Oximetry 100 07/19/20 12:17 Temperature 36 C L 07/19/20 12:17 Temperature Source Temporal Artery Scan 07/19/20 12:17 Pulse 71 07/19/20 14:45 Respiratory Rate 18 07/19/20 14:45 Respiratory Effort 07/19/20 13:28 Blood Pressure 123/95 H 07/19/20 14:45 Blood Pressure Position Supine 07/19/20 12:17 Pulse Oximetry 100 07/19/20 14:45 Oxygen Delivery Method Room Air 07/19/20 14:45 Oxygen Flow Rate 0 07/19/20 14:45 Pain Level 7 07/19/20 14:45 Comment 07/19/20 14:45 Lab/Test Results Lab/Test Results: 07/19/20 12:30 Urine - Reflex from Ua Urine Culture - Pending Laboratory Tests Range/Units 07/19/20 07/19/20 07/19/20 12:30 12:47 12:47 WBC (4.4-10.8) 10^3/uL 9.89 RBC (3.93-5.22) 10^6/uL 4.69 Hgb (11.2-15.7) g/dL 14.2 Hct (36.0-46.0) % 44.8 MCV (80-95) fL 95.5 H MCH (27.0-33.0) pg 30.3 MCHC (32.0-36.0) % 31.7 L RDW (11.7-14.6) % 12.2 Plt Count (130-400) 10^3/uL 349 MPV (8.0-11.0) fL 9.5 Immature Gran % 0.2 Neutrophils % 77.6 Lymphocytes % 11.5 Monocytes % 8.1 Eosinophils % 1.9 Basophils % 0.7 Nucleated RBC % % 0 Absolute Neutrophils (1.2-6.7) 10^3/uL 7.67 H Absolute Lymphocytes (1.2-3.4) 10^3/uL 1.14 L Absolute Monocytes (0.1-0.8) 10^3/uL 0.80 Absolute Eosinophils (0.0-0.7) 10^3/uL 0.19 Absolute Basophils (0.0-0.2) 10^3/uL 0.07 Sodium (136-145) mmol/L 136 Potassium (3.5-5.1) mmol/L 4.1 Chloride (98-107) mmol/L 102 Carbon Dioxide (21.0-32.0) mmol/L 27.7 Anion Gap (3-11) mmol/L 6.3 BUN (7-18) mg/dL 11 Creatinine (0.55-1.02) mg/dL 0.80 Estimated GFR/1.73 m2 (mL/min/1.73m2) >= 60.00 Glucose (74-106) mg/dL 92 Calcium (8.5-10.1) mg/dL 9.0 Total Bilirubin (0.2-1.0) mg/dL 0.5 AST (15-37) U/L 10 L ALT (14-59) U/L 17 Alkaline Phosphatase (46-116) U/L 63 Total Protein (6.4-8.2) g/dL 8.0 Albumin (3.4-5.0) g/dL 4.0 Urine Color (Yellow) [place] Urine Clarity (Clear) Sl cloudy Urine pH (5-8) 6.5 Ur Specific [place] (1.005-1.025) 1.015 Urine Protein (Negative) mg/dL 100 H Urine Ketones (Negative) mg/dL Negative Urine Blood (Negative) Large H Urine Nitrite (Negative) Negative Urine Bilirubin (Negative) Negative Urine Urobilinogen (Up TO 0.2) EU/dL 0.2 Ur Leukocyte Esterase (Negative) Trace H Urine RBC (0-2) HPF >50 H Urine WBC (0-5) HPF 5-10 Ur Epithelial Cells (Negative) HPF Rare Urine Crystals (Negative) HPF Negative Urine Bacteria (Negative) HPF Few Urine Casts (Negative) LPF Negative Urine Mucus (Negative) Trace Ur Culture Indicated? Yes Urine Glucose (Negative) mg/dL Negative POC- Test(urine) Negative Sign Out <FRANKLIN Qureshi - Last Filed: 07/20/20 16:29> Sign Out Data: Sign Out Comment: Awaiting renal ultrasound results recommended by urology. Last updated by Clyde Hair PA at 07/19/20 16:18
--- NOTE | 2020-07-19 15:08 | NUR.NOTE ---
Nursing Note:Patient remains in US.
[2020-07-19 16:45] VITALS: BP 95/70; PULSE 74; RESP 16; TEMP 36.4; O2SAT 100
== END 2020-07-19 17:03 | disposition home or self-care (01) ==
PROVIDERS: Physician Assistant; Emergency Provider Physician Assistant; PCP Family Medicine
DX: N13.39 Other hydronephrosis (principal); Z87.442 Personal history of urinary calculi
CPT/HCPCS: 36415; 76770; 80053; 81025; 96361; 96374; 96375; 99284; 81003; 81015; 85025; 87086

== ENCOUNTER 2020-08-24 08:58 | Emergency (ER) | payer MEDICAID, SELFPAY ==
[2020-08-24 09:00] VITALS: BP 132/86; PULSE 64; RESP 16; TEMP 36.5; O2SAT 100
--- NOTE | 2020-08-24 09:15 | DI.CT_ITS ---
EXAM: CT RENAL COLIC WO CLINICAL HISTORY: Right flank pain. TECHNIQUE: Imaging Protocol: Axial computed tomography images with coronal and sagittal reformatted images were created and reviewed CONTRAST MATERIAL: Intravenous: none Oral: None COMPARISON: CT CT RENAL COLIC WO from 06/26/2020 FINDINGS: VISUALIZED LUNG BASES: No nodules nor pleural effusions evident. ABDOMEN: There is no ascites. LIVER: There are no obvious focal hepatic lesions evident of this noninfused study. Liver is only pa rtially included because of the renal calculus protocol GALLBLADDER/BILIARY: No obvious gallbladder pathology. CBD is not dilated. PANCREAS: No evidence of pancreatic mass nor dilatation of the pancreatic duct. SPLEEN: The partially included spleen is not enlarged. ADRENALS: There are no significant adrenal masses. KIDNEYS:On the right side there is a small 2 millimeter calculus within the kidney. This is unchange d in size and position from the prior study of 06/26/2020. No calculi seen in the right ureter nor w ithin the urinary bladder. In the opposite-left kidney 1 of the calculi which was previously in the lower pole calyx is not seen on today's study at this location and is also not seen in the ureter nor within the urinary bladder. In addition, the larger calculus which was previously present at the le ft ureteropelvic junction-upper left ureter is no longer seen.. There are no calculi in the urinary bladder. Phleboliths are noted in both sides of the pelvis, unchanged. No renal cyst nor ominous re nal masses. ABDOMINAL AORTA: Abdominal aorta is not enlarged and there is no adhabbimynubeyh-kimr-goltqf adenopat hy. ABDOMINAL WALL/GI: No evidence of significant anterior abdominal wall hernia. No bowel obstruction. PELVIS: LYMPH NODES: There is no intrapelvic nor inguinal adenopathy. GI: No evidence of appendicitis.No evidence of sigmoid diverticulitis. URINARY BLADDER: No calculi nor obvious masses evident REPRODUCTIVE: IUD is again noted in the uterine cavity. No new adnexal findings. OSSEOUS: No significant osseous lesions. IMPRESSION: 1. Bilateral nephrolithiasis as described above. However, there presently no obstructing calculi in the ureters and no calculi seen in the urinary bladder. 2. No other abnormalities aunt on this noninfused renal calculus protocol study. RADIATION DOSE DELIVERED: 799.02mGy.cm Total DLP DATA REPOSITORY: All CT scans at this facility are submitted to the National Radiology Data Registry (NRDR) Dose Index Registry (DIR) with the [employer] (A[employer]). RADIATION OPTIMIZATION: All CT scans at this facility use at least one of these dose optimization te chniques: automated exposure control; mA and/or kV adjustment per patient size (includes targeted exa ms where dose is matched to clinical indication); or iterative reconstruction.
--- NOTE | 2020-08-24 09:24 | ED.GENADUL_ITS ---
Discharge Plan Disposition Patient Disposition: HOME Condition: Stable Discharge Details Clinical Impression: Bilateral kidney stones Primary Care Provider: Margarito Curry ED Provider: Quynh Lopez Home Meds and New Rx's Prescriptions: New tamsulosin 0.4 mg capsule 0.4 mg PO QHS 7 Days Qty: 7 RF: 0 ketorolac 10 mg tablet 10 mg PO TID PRN (Reason: pain) 5 Days Qty: 14 RF: 0 Continued ParaGard T 380A 380 square mm intrauterine device 1 device IY ONCE RF: 0 triamcinolone acetonide 0.5 % cream 1 applic TP BID Qty: 15 RF: 1 lorazepam [Ativan] 0.5 mg tablet 0.5 mg PO Q6H PRN (Reason: anxiety/muscle relaxation) Qty: 12 RF: 0 sertraline 100 mg tablet 100 mg PO HS RF: 0 acetaminophen 500 mg Capsule 1,000 mg PO PRN PRNRF: 0 Discharge Instructions Instructions: Kidney Stones (ED), How to Strain Your Urine (ED) Additional Instructions: Follow up with primary care provider in 3-5 days. Return to ED sooner if any worsening or concerns. Increase oral fluids. Please take Tylenol or Ibuprofen with food every 4-6 hours as needed for pain and swelling. Please take medications as prescribed. Follow-up with urology within 3 to 5 days if no improvement or any worsening. Stand Alone Forms: Work Release Referrals: Lisa Sotelo DNP [NURSE PRACTITIONER] - Margarito Curry [Primary Care Provider] - Medical Decision Making 30-year-old female presents to the ED with chief complaint of right flank pain. She does have a history of bilateral kidney stones recently had a stent placed beginning of July on the left side. She reports over the last 24 to 48 hours increasing right flank pain which radiates around into her right lower quadrant. Associated with nausea, no vomiting no fever. She states she is only taking Tylenol prior to arrival. She reports being off all narcotics. She has a past medical history of anxiety depression, pyelonephritis. CBC is largely within normal limits, CMP shows normal kidney function, urine is negative for any RBCs, she does have small leukocytes 10-20 WBCs many epithelial cells and squamous contamination. Urine drug screen is negative for opiates positive for THC. 1025: Spoke with Lisa Campoverde LEGAL SUPPORT ASSISTANT with urology, she will view the CT images and call back. Patient is complaining of increased pain, has received 30 mg of Toradol. Fentanyl 25 mcg IV ordered. 1036: Spoke with Lisa Sotelo who was able to personally review the CT images. She notes bilateral nonobstructing kidney stones largest on the left measuring approximately 4 mm and the one on the right is approximately 2 mm. Official radiology report is pending at this time. She recommends tamsulosin and discharge home with NSAID. FINDINGS: VISUALIZED LUNG BASES: No nodules nor pleural effusions evident. ABDOMEN: There is no ascites. LIVER: There are no obvious focal hepatic lesions evident of this noninfused study. Liver is only partially included because of the renal calculus protocol GALLBLADDER/BILIARY: No obvious gallbladder pathology. CBD is not dilated. PANCREAS: No evidence of pancreatic mass nor dilatation of the pancreatic duct. SPLEEN: The partially included spleen is not enlarged. ADRENALS: There are no significant adrenal masses. KIDNEYS:On the right side there is a small 2 millimeter calculus within the kidney. This is unchanged in size and position from the prior study of 06/26/2020. No calculi seen in the right ureter nor within the urinary bladder. In the opposite-left kidney 1 of the calculi which was previously in the lower pole calyx is not seen on today's study at this location and is also not seen in the ureter nor within the urinary bladder. In addition, the larger calculus which was previously present at the left ureteropelvic junction-upper left ureter is no longer seen.. There are no calculi in the urinary bladder. Phleboliths are noted in both sides of the pelvis, unchanged. No renal cyst nor ominous renal masses. ABDOMINAL AORTA: Abdominal aorta is not enlarged and there is no dynxzeltqlzpneu-bekc-ntwjty adenopathy. ABDOMINAL WALL/GI: No evidence of significant anterior abdominal wall hernia. No bowel obstruction. PELVIS: LYMPH NODES: There is no intrapelvic nor inguinal adenopathy. GI: No evidence of appendicitis.No evidence of sigmoid diverticulitis. URINARY BLADDER: No calculi nor obvious masses evident REPRODUCTIVE: IUD is again noted in the uterine cavity. No new adnexal findings. OSSEOUS: No significant osseous lesions. IMPRESSION: 1. Bilateral nephrolithiasis as described above. However, there presently no obstructing calculi in the ureters and no calculi seen in the urinary bladder. 2. No other abnormalities aunt on this noninfused renal calculus protocol study. Discussed CT results with patient who verbalized understanding. Patient was prescribed Toradol and tamsulosin and instructed on home care, verbalized understanding. The time of this dictation patient was hemodynamically stable alert and oriented. This text was generated using MiniBrake dictation system, please disregard any oddities of phrase or misspellings. HPI General Mode of arrival: ambulatory . Date/Time Provider Initiated Documentation: 08/24/20 08:59 . Limitations to Documentation: no limitations . Information obtained by: patient . HPI Narrative: 30-year-old female presents to the ED with chief complaint of right flank pain. She does have a history of bilateral kidney stones recently had a stent placed beginning of July on the left side. She reports over the last 24 to 48 hours increasing right flank pain which radiates around into her right lower quadrant. Associated with nausea, no vomiting no fever. She states she is only taking Tylenol prior to arrival. She reports being off all narcotics. She has a past medical history of anxiety depression, pyelonephritis. Related Data Home Medications Medication Instructions Recorded Confirmed triamcinolone acetonide 0.5 % 1 applic TP BID #15 gm 08/13/18 08/24/20 topical cream copper 380 square mm intrauterine 1 device IY ONCE 02/02/19 08/24/20 device sertraline 100 mg PO HS 06/26/20 08/24/20 acetaminophen 1,000 mg PO PRN PRN 07/17/20 08/24/20 lorazepam 0.5 mg tablet 0.5 mg PO Q6H PRN #12 tab 07/18/20 08/24/20 ketorolac 10 mg PO TID PRN 5 Days #14 tab 08/24/20 tamsulosin 0.4 mg PO QHS 7 Days #7 cap 08/24/20 Previous Rx's Medication Instructions Recorded triamcinolone acetonide 0.5 % 1 applic TP BID #15 gm 08/13/18 topical cream lorazepam 0.5 mg tablet 0.5 mg PO Q6H PRN #12 tab 07/18/20 ketorolac 10 mg PO TID PRN 5 Days #14 tab 08/24/20 tamsulosin 0.4 mg PO QHS 7 Days #7 cap 08/24/20 Allergies Allergy/AdvReac Type Severity Reaction Status Date / Time Penicillins AdvReac Intermediate Hives Verified 08/24/20 09:15 General Stated Complaint: FlankPain LETITIA: 3 Review of Systems Narrative: Constitutional: Negative for weight loss, alert and oriented, well groomed, normal body habitus, appears comfortable. HEENT: Denies trauma, headaches, blurry vision, nasal discharge, sore throat, trouble swallowing. Chest: Denies chest pain, palpitations, irregular rhythm, hypertension. Respiratory: Denies Shortness of breath, cough, hemoptysis. GI: Denies abdominal pain, vomiting, diarrhea, constipation. Positive nausea. : Denies dysuria, hematuria, rectal bleeding. Positive right flank pain history of kidney stones. Neuro: Denies dizziness, blurry vision, weakness, syncope, headache or facial numbness. Hematologic: Denies easy bruising, intolerance to heat or cold, hair loss. [facility] Medical History Anxiety Depression Eczema History of acute pyelonephritis HPV in female IUD check up RTO in 1 year for annual exam. Normal menstrual pattern with paragard discussed. Positive test Pyelonephritis (12/19/16) Routine medical exam Vaginitis Surgical [place] [facility] [place]GD w/Bx for H.Pylori (07/29/08) [facility] Family History Father , OD at age 42. Substance abuse Essential hypertension Mother Mental disorder Bipolar d/o Neoplasm small cell neuroendocrine carcinoma Sister Substance abuse Mental disorder Bipolar d/o Brother Substance abuse Mental disorder Bipolar d/o Brother Substance abuse Mental disorder Bipolar d/o Grandmother Neoplasm Breast CA Social History Smoking/Tobacco Use Status: Current-Occasional Tobacco Type: cigarettes Counseling given: provider counseling Smoking risk assessment performed?: Yes Alcohol Intake: current Alcohol Intake frequency: a few times a month Alcohol type: beer, wine and hard liquor Details: Decided to quit drinking. Stopped 01/2019 Drug use: Occasionally Substance use type: marijuana Details: alcohol: t-4, one truly. Marijuana; t-1 one hit Adopted: No Foster care: No Household members: significant other and children Number of Children: 2 current occupation: [employer] Pets and animals: Yes (1 dog) What type of physical activity do you participate in: regular exercise Duration: other Details: cleaning Frequency: daily Do you feel safe at home: Yes Do you feel safe in your relationship?: Yes Female Reproductive History Menstrual control method: none History History 2 Para 2 Hx # Term Pregnancies 2 Multiple births 0 Hx # Pregnancies 0 Ectopic pregnancies 0 AB induced 0 Hx Number of Living Children 2 AB spontaneous 0 Past Pregnancies Del. Date GA/Weeks # Outcome Route Wgt Sex Labor Lgth Anesthes ia Location Prov Complic 11/20/16 40 Successful vaginal 2920.001 g Female 9 hours regional 12/22/18 40 No Successful vaginal 3685.438 g Female ValeChristianson CNM Delivery Date: 11/20/16 Delivered at [place] Alexi Bauerde Delivery Date: 12/22/18 No notes to display Exam Narrative Exam Narrative: Constitutional: Alert and oriented x3. Appears stated age. Normal body habitus. Head: Normocephalic, no trauma. Eyes: Pupils PERRLA, Red reflex noted, EOM's intact. Eyelids symmetrical without lesions, discharge, or swelling. ENT: Bilateral TM's WNL, External ear normal to inspection, no mastoid TTP, swelling, or erythema, Nasal turbinates WNL, no nasal discharge. Normal dentition, Posterior pharynx WNL, no exudate. Chest: RRR, Normal S1, S2, distal pulses intact. Resp: Lungs clear to auscultation bilaterally, no wheezes, rales, or rhonchi. Abdomen: Soft, nondistended, nontender to palpation all 4 quadrants. Does have some right CVA tenderness. Musculoskeletal: Normal gait, 5/5 strength to all four extremities. Skin: No suspicious rashes or lesions. Capillary refill less than 2 sec. Neurologic: Cranial nerves II-XII intact. Alert and oriented x 3. DTR's intact. Hematologic/Lymphatic: No ecchymosis, no lymphadenopathy. Course Vital Signs Vital signs: Vital Signs Temperature 36.5 C 08/24/20 09:00 Pulse 64 08/24/20 09:00 Respiratory Rate 16 08/24/20 09:00 Blood Pressure 132/86 08/24/20 09:00 Pulse Oximetry 100 08/24/20 09:00 Temperature 36.5 C 08/24/20 09:00 Temperature Source Skin 08/24/20 09:00 Pulse 64 08/24/20 09:00 Respiratory Rate 16 08/24/20 09:00 Respiratory Effort 08/24/20 09:18 Blood Pressure 132/86 08/24/20 09:00 Blood Pressure Position Sitting 08/24/20 09:00 Pulse Oximetry 100 08/24/20 09:00 Oxygen Delivery Method Room Air 08/24/20 09:00 Oxygen Flow Rate 0 08/24/20 09:00 Pain Level 9 08/24/20 09:00 Comment 08/24/20 09:00 Lab/Test Results Lab/Test Results: POC- Test(urine) Negative
[2020-08-24 09:31] LABS: Bilirubin Negative (Negative); Blood Negative (Negative); Clarity Sl Cloudy (Clear); Glucose Negative (Negative); Ketones Negative (Negative); Leukocyte Esterase Small (Negative); Nitrite Negative (Negative); Specific Gravity 1.025 (1.005-1.025); Urobilinogen 0.2 EU/dL (Up TO 0.2); pH 6.5 (5-8)
[2020-08-24] MEDS: Normal Saline Flush 10 ML SYR IVP (09:35)
[2020-08-24] MEDS: Normal Saline 1,000 ML 150 ML IV (09:35)
[2020-08-24] MEDS: Ketorolac 30 MG/ML VIAL IVP (09:38)
[2020-08-24 09:42] LABS: Epithelial Cells Many HPF (Negative); Other Cells Rare Transitional (Negative); RBC 0-2 HPF (0-2)
[2020-08-24 09:43] LABS: Bacteria Few HPF (Negative); C & S Indicated? No/Sq. Contamination; Casts Negative LPF (Negative); Crystals Negative HPF (Negative); Mucus Heavy (Negative)
[2020-08-24 09:45] LABS: Abs Immature Grans 0.01 10^3/uL (0.0-0.06); Absolute Basophil Count 0.03 10^3/uL (0.0-0.2); Absolute Eosinophil Count 0.13 10^3/uL (0.0-0.7); Absolute Lymphocyte Count 0.98 10^3/uL (1.2-3.4); Absolute Monocyte Count 0.54 10^3/uL (0.1-0.8); Absolute Neutrophil Count 6.38 10^3/uL (1.2-6.7); Basophils % 0.4; Eosinophils % 1.6; HCT 41.6 % (36.0-46.0); HGB 13.3 g/dL (11.2-15.7); Immature Grans % 0.1; Lymphocytes % 12.1; MCH 30.3 pg (27.0-33.0); MCV 94.8 fL (80-95); MPV 9.8 fL (8.0-11.0); Monocytes % 6.7; Neutrophils % 79.1; Nucleated RBC 0 %; Platelet Count 296 10^3/uL (130-400); RBC 4.39 10^6/uL (3.93-5.22); RDW 12.2 % (11.7-14.6); RDW-SD 43.1 fL; WBC 8.07 10^3/uL (4.4-10.8)
[2020-08-24 09:56] LABS: ALT 21 U/L (14-59); AST 11 U/L (15-37); Albumin 3.8 g/dL (3.4-5.0); Alkaline Phosphatase 53 U/L (46-116); Anion Gap 6.7 mmol/L (3-11); BUN 11 mg/dL (7-18); Bilirubin, Total 0.4 mg/dL (0.2-1.0); CO2 27.3 mmol/L (21.0-32.0); CREATININE 0.75 mg/dL (0.55-1.02); Chloride 103 mmol/L (98-107); Glucose 98 mg/dL (74-106); Potassium 4.1 mmol/L (3.5-5.1); Sodium 137 mmol/L (136-145); Total Protein 7.4 g/dL (6.4-8.2)
[2020-08-24 09:58] LABS: *AMPHETAMINES SCREEN URINE Negative (Negative); *BARBITURATES SCREEN URINE Negative (Negative); *BENZODIAZEPINES SCREEN URINE Negative (Negative); Cannabinoids THC POSITIVE (Negative); Cocaine Screen,Urine Negative (Negative); METHADONE URINE SCREEN Negative (Negative); OPIATES URINE SCREEN Negative (Negative)
[2020-08-24 10:02] LABS: Tricyclic Antidepressants Negative (Negative)
[2020-08-24 10:16] VITALS: BP 126/77; PULSE 50; RESP 18; TEMP 36.7; O2SAT 100
[2020-08-24] MEDS: fentaNYL 100 MCG/2 ML VIAL 25 MCG IVP (10:35)
[2020-08-24 11:02] VITALS: BP 113/82; PULSE 60; RESP 18; TEMP 36.7; O2SAT 100
== END 2020-08-24 11:00 | disposition home or self-care (01) ==
PROVIDERS: Emergency Provider Registered Nurse Emergency; PCP Family Medicine
DX: N20.0 Calculus of kidney (principal); F41.8 Other specified anxiety disorders; Z87.442 Personal history of urinary calculi
CPT/HCPCS: 36415; 80053; 80307; 81025; 87040; 96361; 96374; 96375; 99284; 74176; 81003; 81015; 85025; J1885; J3010

== ENCOUNTER 2020-09-05 00:46 | Outpatient (CLI) | payer MEDICAID, SELFPAY ==
--- NOTE | 2020-09-05 08:45 | DI.US_ITS ---
EXAM: US RENAL CLINICAL HISTORY: r/o hydronephrosis after ureteroscopy,CALCULUS OF URETER,N20.1. TECHNIQUE: Dickey scale, color and spectral Doppler were used. COMPARISON: US US RENAL from 07/19/2020 FINDINGS: Renal size in cm: Right: 10.9. Left: 11.1. Echogenicity: Normal. Hydronephrosis: No. Cyst or mass: No. Nephrolithiasis: Bilateral echogenic foci suggestive of nonobstructing stones. Other findings: None. Bladder:Normal. Ureteral jets: Right: Visualized and unremarkable. Left: Visualized and unremarkable. Prevoid vol:74 cc Postvoid vol:4 cc Renal color flow: Symmetric and within normal limits. IMPRESSION: Bilateral nephrolithiasis. No hydronephrosis. DATA REPOSITORY:
== END 2020-09-05 01:06 ==
PROVIDERS: PCP Family Medicine; Visit Provider Urology
DX: N20.2 Calculus of kidney with calculus of ureter (principal)
CPT/HCPCS: 76770

== ENCOUNTER 2020-11-01 09:33 | Outpatient (REF) | payer MEDICAID, SELFPAY ==
--- NOTE | 2020-11-01 08:40 | PAPFT_PTH ---
PATIENT: Malia Ledesma LOC: [facility] U#:[id number] AGE/SX: 30/F ROOM: RE11/01/[address]: Janel Bernal NP : 1990 BED: DIS: 11/01/2020 SPEC #: [id number] RECD: 11/01/20 13:20 STATUS: SUSANNA REJimmie #: [id number] ANDREA: 11/01/20 08:[address]: Janel Bernal NP DEPT: [facility] Cytology RECD BY: Camille Zuniga ENTERED: 11/01/20 13:20 SP TYPE: PAPFT OTHR DR: Margarito Curry Tissues: 1 - CX/ENDOCX FOR PAP SMEARS Procedures: PAP THIN PREP/UVM Screening Comments: [id number] (CHLAMYDIA/GC)
[2020-11-02 13:58] LABS: GC Result Negative (Negative)
[2020-11-02 14:27] LABS: Chlamydia Result Positive (Negative)
== END 2020-11-01 09:34 | disposition home or self-care (01) ==
LOC: LBN 09:33
PROVIDERS: PCP Family Medicine; Visit Provider Nurse Practitioner Women's Health
DX: Z11.3 Encounter for screening for infections with a predominantly sexual mode of transmission (principal); Z12.4 Encounter for screening for malignant neoplasm of cervix; Z87.42 Personal history of other diseases of the female genital tract
CPT/HCPCS: 87491; 87591; 88142

== ENCOUNTER 2021-04-27 13:03 | Outpatient (REF) | payer MEDICAID, SELFPAY ==
[2021-04-30 14:11] LABS: Chlamydia Result Negative (Negative); GC Result Negative (Negative)
== END 2021-04-27 13:04 | disposition home or self-care (01) ==
LOC: LBN 13:03
PROVIDERS: PCP Family Medicine; Referring Provider Physician Assistant Medical; Visit Provider Physician Assistant Medical
DX: N89.8 Other specified noninflammatory disorders of vagina (principal)
CPT/HCPCS: 87491; 87591; 87480; 87510; 87660

== ENCOUNTER 2021-05-16 21:05 | Outpatient (REF) | payer MEDICAID, SELFPAY ==
[2021-05-16 21:53] LABS: Hemoglobin A1C 4.9 % (<5.7)
[2021-05-16 21:58] LABS: TSH (W/Ref FT4) 2.09 uIU/mL (0.36-3.74)
[2021-05-18 10:16] LABS: Hepatitis B Surface Ag Negative (Negative)
[2021-05-18 10:19] LABS: Syphilis Serology (RPR) Negative (Negative)
[2021-05-18 10:40] LABS: HIV-1/2 Ag & Ab Screen Negative (Negative)
== END 2021-05-16 21:06 | disposition home or self-care (01) ==
LOC: NCHCN 21:05
PROVIDERS: PCP Family Medicine; Visit Provider Family Medicine
DX: Z00.00 Encounter for general adult medical examination without abnormal findings (principal); Z11.4 Encounter for screening for human immunodeficiency virus [HIV]
CPT/HCPCS: 87340; 87389; 83036; 84443; 86592

== ENCOUNTER 2021-06-20 14:55 | Outpatient (REF) | payer MEDICAID, SELFPAY ==
[2021-06-22 10:44] LABS: COVID-19 RT-PCR UVMMC Result Negative (Negative)
== END 2021-06-20 14:56 | disposition home or self-care (01) ==
LOC: NCHCN 14:55
PROVIDERS: PCP Family Medicine; Visit Provider Family Medicine
DX: Z20.822 Contact with and (suspected) exposure to COVID-19 (principal); J18.9 Pneumonia, unspecified organism
CPT/HCPCS: U0003

== ENCOUNTER 2021-11-02 14:42 | Outpatient (REF) | payer MEDICAID, SELFPAY ==
--- NOTE | 2021-11-02 12:30 | PAPFT_PTH ---
PATIENT: Malia Ledesma LOC: [facility] U#:[id number] AGE/SX: 31/F ROOM: RE11/02/[address]: Margarito Curry : 1990 BED: DIS: 11/02/2021 SPEC #: [id number] RECD: 11/02/21 18:30 STATUS: SUSANNA REJimmie #: [id number] ANDREA: 11/02/21 12:[address]: Margarito Curry DEPT: [facility] Cytology RECD BY: Camille Zuniga Tissues: 1 - CX/ENDOCX FOR PAP SMEARS Procedures: PAP THIN PREP/UVM Screening Comments: [id number] (CHLAMYDIA/GC)
[2021-11-05 09:44] LABS: HIV-1/2 Ag & Ab Screen Negative (Negative)
[2021-11-05 10:12] LABS: Hepatitis B Surface Ag Negative (Negative)
[2021-11-05 11:14] LABS: Hepatitis C Ab w Rflx HCV PCR Negative (Negative)
[2021-11-05 12:04] LABS: Syphilis Serology (RPR) Negative (Negative)
[2021-11-05 15:32] LABS: Chlamydia Result Negative (Negative); GC Result Negative (Negative)
== END 2021-11-02 14:43 | disposition home or self-care (01) ==
LOC: NCHCN 14:42
PROVIDERS: PCP Family Medicine; Visit Provider Family Medicine
DX: Z12.4 Encounter for screening for malignant neoplasm of cervix (principal); Z11.3 Encounter for screening for infections with a predominantly sexual mode of transmission; Z11.4 Encounter for screening for human immunodeficiency virus [HIV]; Z11.59 Encounter for screening for other viral diseases; R87.612 Low grade squamous intraepithelial lesion on cytologic smear of cervix (LGSIL)
CPT/HCPCS: 86803; 87340; 87389; 87491; 87591; 88142; 86592

== ENCOUNTER 2021-12-01 17:36 | Emergency (ER) | payer MEDICAID, SELFPAY ==
[2021-12-01 17:39] VITALS: BP 122/78; PULSE 106; RESP 16; TEMP 36.5; O2SAT 100
--- NOTE | 2021-12-01 18:33 | W.ED.GENAD ---
Discharge Plan Disposition Patient Disposition: HOME Condition: Improving Discharge Details Clinical Impression: Enteritis Primary Care Provider: Margarito Curry ED Provider: Zaki Deutsch Home Meds and New Rx's Prescriptions: New ciprofloxacin HCl 250 mg tablet 250 mg PO BID 5 Days Qty: 10 0RF Continued ParaGard T 380A 380 square mm intrauterine device 1 device IY ONCE 0RF sertraline 100 mg tablet 200 mg PO HS 0RF Label Comments: TAKE 2 TABLETS BY MOUTH DAILY clonidine HCl 0.1 mg tablet 0.1 mg PO QID 0RF Label Comments: Take 1 tablet by mouth four times daily thiamine HCl (vitamin B1) 100 mg tablet 100 mg PO DAILY 0RF Label Comments: TAKE ONE TABLET BY MOUTH EVERY DAY propranolol 10 mg tablet 10 mg PO DAILY PRN0RF Label Comments: TAKE ONE TABLET BY MOUTH EVERY EVENING NEEDED magnesium oxide 400 mg (241.3 mg magnesium) tablet 400 mg PO DAILY 0RF Label Comments: TAKE ONE TABLET BY MOUTH EVERY DAY baclofen 10 mg tablet 10 mg PO TID 0RF gabapentin 300 mg capsule 300 mg PO TID 0RF Label Comments: Take 1 capsule by mouth three times a day folic acid 1 mg tablet 1 mg PO DAILY 0RF Label Comments: TAKE ONE TABLET BY MOUTH EVERY DAY multivitamin with folic acid [Tab-A-Tremaine] 400 mcg tablet 1 tab PO DAILY 0RF Label Comments: TAKE ONE TABLET BY MOUTH EVERY DAY Discharge Instructions Instructions: Enteritis (ED) Additional Instructions: Please be seen by your primary care physician. Please return the emergency department if you develop worsening symptoms including fevers chills nausea vomiting bloody or mucoid stool or other abnormal symptomatology. Medical Decision Making 31-year-old female history of prior UTIs prior pyelonephritis prior kidney stones with prior stenting presents with flank pain bilateral right greater than left associate with nausea, no vomiting, mild tachycardia on arrival appears moderately uncomfortable, no CVA tenderness, nontoxic, however high clinical suspicion for kidney stone versus pyelonephritis versus less likely musculoskeletal versus UTI versus less likely pulmonary in nature. Will obtain test, basic labs, UA, CT abdomen pelvis Noncon, Zofran fluids antiemetics and analgesia close reassessment. 20: 13 patient resting comfortably no vomiting nontoxic. Evidence of enteritis. Urine contaminated with squamous epithelial cells no leuks no nitrite less likely cystitis or pyelonephritis. Patient says that her pain is not controlled however she is resting comfortably, I offered her ibuprofen or Tylenol she says it does not work, I offered her a Percocet p.o. she should rather think IV. Patient endorses she has a ride home. Given endorsement of chills and discomfort for the past 3 days will prescribe ciprofloxacin to hold as a prescription home in case patient is not improving over the next 1 to 2 days. Also given strict return precautions for worsening symptoms. HPI General Date/Time Provider Initiated Documentation: 12/01/21 17:51. HPI Narrative: 31-year-old female history of recurrent UTIs pyelonephritis, recurrent kidney stones 2 prior stents presents with bilateral flank pain right greater than left associate with mild nausea patient dorsals feels like her prior kidney stones. Last menstrual period was last month Related Data Home Medications Medication Instructions Recorded Confirmed copper 380 square mm intrauterine 1 device IY ONCE 02/02/19 12/01/21 device (ParaGard T 380A) sertraline 100 mg tablet 200 mg PO HS 06/26/20 12/01/21 baclofen 10 mg tablet 10 mg PO TID 12/01/21 12/01/21 ciprofloxacin HCl 250 mg tablet 250 mg PO BID 5 Days #10 tab 12/01/21 clonidine HCl 0.1 mg tablet 0.1 mg PO QID 12/01/21 12/01/21 folic acid 1 mg tablet 1 mg PO DAILY 12/01/21 12/01/21 gabapentin 300 mg capsule 300 mg PO TID 12/01/21 12/01/21 magnesium oxide 400 mg (241.3 mg 400 mg PO DAILY 12/01/21 12/01/21 magnesium) tablet multivitamin with folic acid 400 1 tab PO DAILY 12/01/21 12/01/21 mcg tablet (Tab-A-Tremaine) propranolol 10 mg tablet 10 mg PO DAILY PRN 12/01/21 12/01/21 thiamine HCl (vitamin B1) 100 mg 100 mg PO DAILY 12/01/21 12/01/21 tablet Previous Rx's Medication Instructions Recorded ciprofloxacin HCl 250 mg tablet 250 mg PO BID 5 Days #10 tab 12/01/21 Allergies Allergy/AdvReac Type Severity Reaction Status Date / Time Penicillins AdvReac Intermediate Hives Verified 12/01/21 17:44 General Stated Complaint: FlankPain LETITIA: 3 Review of Systems Narrative: Review of Systems Constitutional: negative Eyes: negative ENT: negative Cardiovascular: negative Respiratory: negative Gastrointestinal: Nausea : Flank pain Musculoskeletal: negative Skin: negative Neurologic: negative Psych: negative PFSH All Active Problems (Updated 12/01/21 @ 20:17 by Zaki Deutsch MD) Enteritis (Acute) Neoplasm of uncertain behavior, unspecified (Acute) [place] [facility] [place]. Vanessa Bryan MD Change in mole (Acute) Panic (Acute) Herpes simplex type 1 infection (Acute 12/19/16) History of calculus of kidney during (Acute 12/19/16) History of substance abuse (Acute 12/19/16) Eczema (Chronic) History of acute pyelonephritis (Acute) ADHD (attention deficit hyperactivity disorder), combined type (Chronic) Generalized anxiety disorder (Chronic) Depression (Acute) Anxiety (Acute) ADHD (Chronic) Medical History (Updated 12/01/21 @ 20:17 by Zaki Deutsch MD) Anxiety Depression IUD check up RTO in 1 year for annual exam. Normal menstrual pattern with paragard discussed. Pyelonephritis (12/19/16) [place] [facility] [place]GD w/Bx for H.Pylori (07/29/08) [facility] Family History Father , OD at age 42. Substance abuse Essential hypertension Mother Mental disorder Bipolar d/o Neoplasm small cell neuroendocrine carcinoma Sister Substance abuse Mental disorder Bipolar d/o Brother Substance abuse Mental disorder Bipolar d/o Brother Substance abuse Mental disorder Bipolar d/o Grandmother Neoplasm Breast CA Social History Smoking/Tobacco Use Status: Former Tobacco Use Tobacco: How many years used: 10 Quit status: has quit before Counseling given: provider counseling Smoking risk assessment performed?: Yes Alcohol Intake: current Alcohol Intake frequency: a few times a month Alcohol type: beer, wine and hard liquor Details: Decided to quit drinking. Stopped 01/2019 Drug use: Occasionally Substance use type: does not use Adopted: No Foster care: No Household members: significant other and children Number of Children: 2 current occupation: [employer] Pets and animals: Yes (1 dog) What type of physical activity do you participate in: regular exercise Duration: other Details: cleaning Frequency: daily Do you feel safe at home: Yes Do you feel safe in your relationship?: Yes Female Reproductive History Menstrual control method: none History History 2 Para 2 Hx # Term Pregnancies 2 Multiple births 0 Hx # Pregnancies 0 Ectopic pregnancies 0 AB induced 0 Hx Number of Living Children 2 AB spontaneous 0 Past Pregnancies Del. Date GA/Weeks # Outcome Route Wgt Sex Labor Lgth Anesthesia Location Prov [facility] 11/20/16 40 Successful vaginal 2920.001 g Female 9 hours regional 12/22/18 40 No Successful vaginal 3685.438 g Female Vale Bauer CNM Delivery Date: 11/20/16 Last Updated by: Vale Bauer Delivered at [place] Exam Narrative Exam Narrative: Physical Examination General: alert, awake, cooperative, moderately uncomfortable HEENT: normocephalic, atraumatic; PERRL, EOM intact, conjunctiva normal; no nasal discharge; moist mucous membranes, oral and pharyngeal mucosa normal, tolerating secretions Neck: supple, trachea midline; full ROM Chest: normal to inspection Respiratory: normal respiratory effort, speaking in full sentences, clear to auscultation, no wheezing, rales or rhonchi Cardiac: Tachycardia, regular rhythm, S1S2 intact, no murmurs rubs or gallops GI: abdomen soft, non-tender, non-distended; no palpable mass or hepatosplenomegaly : No CVA tenderness Back: No CVA tenderness Skin: no lesions, rashes or trauma appreciated Neuro: AAOx3, normal speech, moving all extremities Psych: Appropriate mood and affect Course Vital Signs Vital signs: Vital Signs Temperature 36.5 C 12/01/21 17:39 Pulse 106 H 12/01/21 17:39 Respiratory Rate 16 12/01/21 17:39 Blood Pressure 122/78 12/01/21 17:39 Pulse Oximetry 100 12/01/21 17:39 Temperature 36.5 C 12/01/21 17:39 Temperature Source Temporal Artery Scan 12/01/21 17:39 Pulse 106 H 12/01/21 17:39 Respiratory Rate 16 12/01/21 17:39 Respiratory Effort 12/01/21 17:42 Blood Pressure 122/78 12/01/21 17:39 Blood Pressure Position Sitting 12/01/21 17:39 Pulse Oximetry 100 12/01/21 17:39 Oxygen Delivery Method Room Air 12/01/21 17:39 Oxygen Flow Rate 0 12/01/21 17:39 Pain Level 9 12/01/21 17:50 Lab/Test Results Lab/Test Results: POC- Test(urine) Negative
[2021-12-01] MEDS: Ondansetron 4 MG/2 ML VIAL IVP (18:37)
[2021-12-01] MEDS: Normal Saline 1,000 ML 1000 ML IV (18:39)
[2021-12-01] MEDS: MORPHine 4 MG/ML SYR IVP (18:40)
[2021-12-01 18:41] LABS: Bilirubin Negative (Negative); Blood Small (Negative); Clarity Clear (Clear); Glucose Negative (Negative); Ketones Negative (Negative); Leukocyte Esterase Negative (Negative); Nitrite Negative (Negative); Specific Gravity 1.025 (1.005-1.025); Urobilinogen 0.2 EU/dL (Up TO 0.2)
[2021-12-01 18:56] LABS: RBC Negative HPF (0-2)
[2021-12-01 18:57] LABS: Bacteria Moderate HPF (Negative); C & S Indicated? No/Sq. Contamination; Casts Negative LPF (Negative); Crystals Negative HPF (Negative); Epithelial Cells Many HPF (Negative); Mucus Negative (Negative)
[2021-12-01 18:59] LABS: Abs Immature Grans 0.01 10^3/uL (0.0-0.06); Absolute Basophil Count 0.02 10^3/uL (0.0-0.2); Absolute Eosinophil Count 0.01 10^3/uL (0.0-0.7); Absolute Lymphocyte Count 0.87 10^3/uL (1.2-3.4); Absolute Monocyte Count 0.81 10^3/uL (0.1-0.8); Absolute Neutrophil Count 2.07 10^3/uL (1.2-6.7); Basophils % 0.5; Eosinophils % 0.3; HGB 14.7 g/dL (11.2-15.7); Immature Grans % 0.3; MCH 30.4 pg (27.0-33.0); MCV 95.2 fL (80-95); MPV 10.7 fL (8.0-11.0); Monocytes % 21.4; Neutrophils % 54.5; Platelet Count 200 10^3/uL (130-400); RBC 4.83 10^6/uL (3.93-5.22); RDW 12.8 % (11.7-14.6); RDW-SD 44.5 fL; WBC 3.79 10^3/uL (4.4-10.8)
--- NOTE | 2021-12-01 19:09 | DI.CT_ITS ---
Exam(s) CT ABDOMEN PELVIS WO EXAM: CT ABDOMEN PELVIS WO CLINICAL HISTORY: concern for kidney stone, bilateral flank pain R>L. TECHNIQUE: Imaging Protocol: Axial computed tomography images with coronal and sagittal reformatted images were created and reviewed CONTRAST MATERIAL: Intravenous: none Oral: None COMPARISON: CT CT RENAL COLIC WO from 08/24/2020 FINDINGS: VISUALIZED LUNG BASES: No nodules nor pleural effusions evident. ABDOMEN: There is no ascites. LIVER: There are no obvious focal hepatic lesions evident of this noninfused study. GALLBLADDER/BILIARY: Very subtle suggestion of possible noncalcified gallstones (series 2/image 36). No evidence of acute cholecystitis. Biliary tree is not dilated. CBD is not dilated. PANCREAS: No evidence of pancreatic mass nor dilatation of the pancreatic duct. SPLEEN: Spleen is not enlarged. No obvious intrasplenic lesions. ADRENALS: There are no significant adrenal masses. KIDNEYS:No cysts evident. No solid renal masses. There is a solitary nonobstructive small calculus i n each kidney. No hydronephrosis. No hydroureter.. ABDOMINAL AORTA: Abdominal aorta is not enlarged. LYMPH NODES: There is no retroperitoneal nor paraaortic adenopathy. ABDOMINAL WALL: No evidence of significant anterior abdominal wall nor inguinal hernia. GI: There is no evidence of bowel obstruction, free air, nor abscess. PELVIS: LYMPH NODES: There is no intrapelvic nor inguinal adenopathy. GI: No evidence of appendicitis.No evidence of sigmoid diverticulitis. URINARY BLADDER: No calculi nor obvious masses evident REPRODUCTIVE: IUD is again noted in the uterus. This appears to be in satisfactory position. No abn ormal adnexal masses. There is a small amount of free fluid in the cul-de-sac. OSSEOUS: No significant osseous lesions. Sclerotic density on both sides of the SI joints consistent with probable sacroiliitis. There is no ankylosis of the SI joints. IMPRESSION: 1. Bilateral nonobstructive renal calculi. No hydronephrosis. No other significant renal findings n or abnormality in the urinary bladder. 2. The IUD is presently in satisfactory position in the endometrial canal. Ovarian size is upper nor mal for this age group. No abnormal adnexal masses. There is a small amount of free fluid in the cu l-de-sac. 3. Possible subtle noncalcified gallstone. No evidence of gallbladder wall edema nor dilatation of t he biliary tree. Recommend follow-up ultrasound. 4. Other findings as above. Study 1st read by [facility]. RADIATION DOSE DELIVERED: 1,070.7mGy.cm Total DLP DATA REPOSITORY: All CT scans at this facility are submitted to the National Radiology Data Registry (NRDR) Dose Index Registry (DIR) with the [employer] (ACR). RADIATION OPTIMIZATION: All CT scans at this facility use at least one of these dose optimization te chniques: automated exposure control; mA and/or kV adjustment per patient size (includes targeted exa ms where dose is matched to clinical indication); or iterative reconstruction.
[2021-12-01 19:15] VITALS: BP 110/73; PULSE 68; RESP 16; O2SAT 100
[2021-12-01 19:15] LABS: ALT 30 U/L (14-59); AST 20 U/L (15-37); Albumin 4.2 g/dL (3.4-5.0); Alkaline Phosphatase 67 U/L (46-116); Anion Gap 9.7 mmol/L (3-11); BUN 8 mg/dL (7-18); Bilirubin, Total 0.3 mg/dL (0.2-1.0); CO2 25.3 mmol/L (21.0-32.0); CREATININE 0.8 mg/dL (0.55-1.02); Calcium 8.8 mg/dL (8.5-10.1); Chloride 103 mmol/L (98-107); Glucose 87 mg/dL (74-106); Potassium 3.5 mmol/L (3.5-5.1); Sodium 138 mmol/L (136-145); Total Protein 7.7 g/dL (6.4-8.2)
[2021-12-01] MEDS: Ketorolac 15 MG/ML VIAL IVP (19:31)
--- NOTE | 2021-12-01 19:51 | NUR.NOTE ---
pt has had no relief from the toradol, provider notified. JM
--- NOTE | 2021-12-01 19:58 | DI.VRAD_ITS ---
PROCEDURE INFORMATION: Exam: CT Abdomen And Pelvis Without Contrast Exam date and time: 12/01/2021 7:09 PM Age: 31 years old Clinical indication: Abdominal pain; Patient HX: Concern for kidney stone, bilateral flank pain. Patient has a history of kidney stones. TECHNIQUE: Imaging protocol: Computed tomography of the abdomen and pelvis without contrast. Radiation optimization: All CT scans at this facility use at least one of these dose optimization techniques: automated exposure control; mA and/or kV adjustment per patient size (includes targeted exams where dose is matched to clinical indication); or iterative reconstruction. COMPARISON: CT RENAL COLIC WO CONTRAST 12/31/2017 2:56 AM FINDINGS: Tubes, catheters and devices: Intrauterine device in place. Lungs: Lung bases are clear. Liver: Unremarkable limited noncontrast liver imaging. Gallbladder and bile ducts: Normal. No calcified stones. No ductal dilation. Pancreas: Normal. No ductal dilation. Spleen: Normal. No splenomegaly. Adrenal glands: Normal. No mass. Kidneys and ureters: Negative for hydronephrosis. Nonobstructing stones noted bilaterally, up to 3 mm diameter. Nondilated ureters. No stones observed within the ureters. Stomach and bowel: Collapsed stomach. Nondilated small bowel. Fat planes around loops of small bowel are indistinct. There are no inflammatory changes observed around the colon. Appendix: Normal appendix. Intraperitoneal space: Mild pelvic free fluid. No free air. No abscess. Mild mesenteric fat stranding. Arteries: Unremarkable. No abdominal aortic aneurysm. Lymph nodes: Mesenteric lymph nodes are mildly prominent. Negative for pathologic lymphadenopathy. Urinary bladder: Unremarkable. No stones. No significant wall thickening. Reproductive: Unremarkable uterus. Negative for adnexal mass or cyst. Bones/joints: Unremarkable. No acute fracture. Soft tissues: Unremarkable. IMPRESSION: 1. Findings of enteritis with reactive mesenteric inflammation. 2. No hydronephrosis. 3. Nonobstructive stones in the kidneys bilaterally. 4. Mild pelvic free fluid. Dictated and Authenticated by: Beni Fernandez MD. Ordering:CHRISTOPHER Haines MD
[2021-12-01] MEDS: MORPHine 4 MG/ML SYR 2 MG IVP (20:19)
[2021-12-01 20:29] VITALS: BP 104/66; PULSE 72; RESP 16; TEMP 36.8; O2SAT 99
== END 2021-12-01 20:39 | disposition home or self-care (01) ==
PROVIDERS: Emergency Provider Emergency Medicine; PCP Family Medicine
DX: K52.9 Noninfective gastroenteritis and colitis, unspecified (principal); R10.9 Unspecified abdominal pain; Z87.442 Personal history of urinary calculi
CPT/HCPCS: 36415; 80053; 81025; 96361; 96374; 96375; 96376; 99284; 74176; 81003; 81015; 85025; J1885; J2270; J2405

== ENCOUNTER 2022-02-05 12:47 | Outpatient (REF) | payer MEDICAID, SELFPAY ==
--- NOTE | 2022-02-05 11:22 | CER_PTH ---
PATIENT: Malia Ledesma LOC: [facility] U#:[id number] AGE/SX: 31/F ROOM: RE02/05/[address]: Zeny Clemente MD : 1990 BED: DIS: 02/05/2022 SPEC #: [id number] RECD: 02/05/22 13:06 STATUS: SUSANNA REQ #: [id number] ANDREA: 02/05/22 11:[address]: Zeny Clemente DEPT: Surgical Specimen RECD BY: Camille Zuniga ENTERED: 02/05/22 13:07 SP TYPE: CER OTHR DR: Margarito Curry Tissues: 1 - CERVICAL BIOPSY Procedures: GROSS AND MICRO LEVEL 4 Comments: [id number]
== END 2022-02-05 12:48 | disposition home or self-care (01) ==
LOC: LBN 12:47
PROVIDERS: PCP Family Medicine; Visit Provider Obstetrics & Gynecology
DX: N87.0 Mild cervical dysplasia (principal)
CPT/HCPCS: 88305

== ENCOUNTER 2022-07-22 10:50 | Emergency (ER) | payer MEDICAID, SELFPAY ==
[2022-07-22 10:56] VITALS: BP 121/71; PULSE 95; RESP 18; TEMP 37.6; O2SAT 99
--- NOTE | 2022-07-22 11:06 | W.ED.GENAD ---
Discharge Plan Disposition Patient Disposition: Home Condition: Stable Discharge Details Clinical Impression: Flu-like symptoms, URI (upper respiratory infection) Primary Care Provider: Margarito Curry ED Provider: Alaina Koenig Home Meds and New Rx's Prescriptions: New benzonatate 100 mg capsule 100 mg PO TID PRN (Reason: cough) Qty: 10 0RF Continued ParaGard T 380A 380 square mm intrauterine device 1 device IY ONCE hydroxyzine pamoate 25 mg capsule 25 mg PO BID PRN sertraline 100 mg tablet 200 mg PO HS Label Comments: TAKE 2 TABLETS BY MOUTH DAILY clonidine HCl 0.1 mg tablet 0.1 mg PO QHS Label Comments: Take 1 tablet by mouth four times daily propranolol 10 mg tablet 10 mg PO DAILY PRN Label Comments: TAKE ONE TABLET BY MOUTH EVERY EVENING NEEDED baclofen 10 mg tablet 10 mg PO TID PRN gabapentin 300 mg capsule 300 mg PO TID PRN Label Comments: Take 1 capsule by mouth three times a day multivitamin with folic acid [Tab-A-Tremaine] 400 mcg tablet 1 tab PO DAILY Label Comments: TAKE ONE TABLET BY MOUTH EVERY DAY Discharge Instructions Instructions: Upper Respiratory Infection (ED) Additional Instructions: As we discussed, your flu, COVID and RSV was negative here today. However, I do remain concerned for flu, particularly given your child's recent diagnosis. Send out testing is pending. Please encourage hydration. You may use Tylenol and ibuprofen as needed to help with symptomatic management. You may use the Tessalon Perles as prescribed to help with cough. If you develop shortness of breath, difficulty breathing, inability stay hydrated or other new/worsening symptoms please seek care urgently once again. Otherwise, please follow-up with primary care for reevaluation 1 to 2 weeks. We will call you with any positive results from a send out testing. Referrals: Margarito Curry [Primary Care Provider] - Discharge Data Discharge Date/Time-TO BE ENTERED AT DEPARTURE: 07/22/22 12:27 Medical Decision Making Patient is a pleasant 22-year-old who presents today with chief complaint of chills, body aches x2 days. She reports that her daughter was recently diagnosed with flu. She was concerned that she will kidney infection kidney stone as she has had these before and can have significant discomfort. Also endorsing congestion, and cough. Denies any shortness of breath or chest pain. No nausea yet. Denies any vaginal discharge. Denies being . On exam, he appears fatigued but nontoxic. Vital signs are stable. She appears Slightly dry but is tolerating oral fluids. Lungs clear, normal cardiac exam, abdomen benign. No CVA tenderness. Patient's rapid flu, COVID and RSV was negative here. Her urinalysis does not suggest infection, there is no blood in her urine. It was positive for ketones but given her acute illness and I am not surprised by this. As her daughter recently tested positive for flu, I am concerned for this. We will send out a flu test. Given the length of symptoms, relief she is out of the window for this. She has been taking repetitive COVID tests and these have been negative. No one in hospital has been COVID positive. We discussed supportive care. Encourage hydration. Return precautions were discussed. Advise follow-up with primary care in 1 to 2 weeks for reevaluation. Encourage handwashing and trying to stay away from others to prevent spread. All of her questions and concerns were addressed and she is in agreement this plan Sign Out No HPI General Date/Time Provider Initiated Documentation: 07/22/22 11:06. Limitations to Documentation: no limitations. Information obtained by: patient and RN notes reviewed. History of Present Illness 32 year old F presents to the emergency department with the chief complaint of body aches, chills, cough, congestion, described as moderate, Quality is described as aching (body aches), Patient started experiencing this day(s) (2) and it has been constant. No relieving factors improve symptom(s), No exacerbating factors reported . Patient notes cough, fever/chills, loss of appetite and malaise; denies chest pain, headaches, nausea/vomiting, rash, shortness of breath and weakness. Patient did receive the following treatments prior to arrival, none Related Data Home Medications Medication Instructions Recorded Confirmed copper 380 square mm intrauterine 1 device intrauterine ONCE 02/02/19 07/22/22 device (ParaGard T 380A) sertraline 100 mg tablet 200 mg PO HS 06/26/20 07/22/22 baclofen 10 mg tablet 10 mg PO TID PRN 12/01/21 07/22/22 clonidine HCl 0.1 mg tablet 0.1 mg PO QHS 12/01/21 02/05/22 gabapentin 300 mg capsule 300 mg PO TID PRN 12/01/21 07/22/22 multivitamin with folic acid 400 1 tab PO DAILY 12/01/21 02/05/22 mcg tablet (Tab-A-Tremaine) propranolol 10 mg tablet 10 mg PO DAILY PRN 12/01/21 02/05/22 hydroxyzine pamoate 25 mg capsule 25 mg PO BID PRN 02/05/22 02/05/22 benzonatate 100 mg capsule 100 mg PO TID PRN cough #10 caps 07/22/22 Previous Rx's Medication Instructions Recorded benzonatate 100 mg capsule 100 mg PO TID PRN cough #10 caps 07/22/22 Allergies Allergy/AdvReac Type Severity Reaction Status Date / Time Penicillins AdvReac Intermediate Hives Verified 07/22/22 11:00 General Stated Complaint: GenMedical LETITIA: 3 Review of Systems Constitutional Constitutional: Reports as per HPI and Denies headache(s) Eyes Eyes: Reports as per HPI, Denies eye discharge and Denies irritation ENT Ears, Nose, Mouth, and Throat: Reports as per HPI and Denies headache(s) Cardiovascular Cardiovascular: Reports as per HPI, Denies chest pain and Denies dyspnea Respiratory Respiratory: Reports as per HPI and Denies dyspnea Gastrointestinal Gastrointestinal: Reports as per HPI, Denies abdominal pain, Denies change in bowel habits, Denies nausea and Denies vomiting Integumentary/Breasts Skin/Breast: Reports as per HPI and Denies rash Neurologic Neurologic: Reports as per HPI and Denies headache(s) PFSH All Active Problems (Updated 07/22/22 @ 12:17 by FRANKLIN Sexton) Flu-like symptoms (Acute) URI (upper respiratory infection) (Acute) LGSIL (low grade squamous intraepithelial dysplasia) (Acute) Change in mole (Acute) Panic (Acute) Herpes simplex type 1 infection (Acute 12/19/16) Eczema (Chronic) ADHD (attention deficit hyperactivity disorder), combined type (Chronic) Generalized anxiety disorder (Chronic) Depression (Acute) Anxiety (Acute) ADHD (Chronic) Medical History (Updated 07/22/22 @ 12:17 by FRANKLIN Sexton) Anxiety Depression History of acute pyelonephritis History of calculus of kidney during (12/19/16) History of substance abuse (12/19/16) IUD check up RTO in 1 year for annual exam. Normal menstrual pattern with paragard discussed. Neoplasm of uncertain behavior, unspecified new pt visit at [facility] Derm 05/24/19. Vanessa Bryan MD Pyelonephritis (12/19/16) Surgical History [place] [facility] [place]GD w/Bx for H.Pylori (07/29/08) [facility] Family History Father , OD at age 42. Substance abuse Essential hypertension Mother Mental disorder Bipolar d/o Neoplasm small cell neuroendocrine carcinoma Sister Substance abuse Mental disorder Bipolar d/o Brother Substance abuse Mental disorder Bipolar d/o Brother Substance abuse Mental disorder Bipolar d/o Grandmother Neoplasm Breast CA Social History Smoking/Tobacco Use Status: Former Tobacco Use Tobacco: How many years used: 10 Quit status: has quit before Counseling given: provider counseling Smoking risk assessment performed?: Yes Alcohol Intake: former Details: Decided to quit drinking. Stopped 01/2019 Drug use: Occasionally Substance use type: marijuana Adopted: No Foster care: No Household members: significant other and children Number of Children: 2 current occupation: [employer] Pets and animals: Yes (1 dog) What type of physical activity do you participate in: regular exercise Duration: other Details: cleaning Frequency: daily Do you feel safe at home: Yes Do you feel safe in your relationship?: Yes Female Reproductive History Menstrual Duration of menses: 6-7 days control method: copper IUCD History History 2 Para 2 Hx # Term Pregnancies 2 Multiple births 0 Hx # Pregnancies 0 Ectopic pregnancies 0 AB induced 0 Hx Number of Living Children 2 AB spontaneous 0 Past Pregnancies Del. Date GA/Weeks # Preg Succ Route Wgt Sex Labor Lgth Anesthesia Location Prov Complic 11/20/16 40 vaginal 2920.001 g Female 9 hours regional 12/22/18 40 No vaginal 3685.438 g Female Vale Bauer CNM Delivery Date: 11/20/16 Last Updated by: Vale Bauer Delivered at [place] Exam Const General: cooperative, healthy appearing (appears fatigued), comfortable, no acute distress, well developed and well groomed Nutritional Appearance: average body habitus and well nourished Orientation: alert and awake [facility] Head: normal to inspection, normocephalic and atraumatic Ears: hearing grossly normal bilaterally, external ears normal and TM's normal bilaterally General nose exam: external nose normal and nares normal Face and sinus: normal facial exam, sinuses nontender and face symmetric Mouth: oral mucosae normal, lip normal, tongue normal, oropharynx normal and moist mucous membranes Teeth and gingiva: dentition normal Throat: posterior oropharynx normal, tonsils normal and uvula midline Eyes General: appearance normal, both eyes and all related structures Neck Neck: normal visual inspection, full ROM, no lymphadenopathy and no meningeal signs Resp Effort & Inspection: normal respiratory effort, able to speak in complete sentences and no respiratory distress Auscultation: clear to auscultation bilaterally, no rales, no rhonchi and no wheezes Cardio Rate: regular rate Rhythm: regular rhythm Heart Sounds: S1 normal and S2 normal Skin General skin exam: no rashes or lesions noted Neuro General: patient alert and patient awake Cognition: normal cognition Speech: speech normal Gait: normal gait Psych Appearance: grossly normal and well kempt Mental Status: mental status grossly normal Speech and Movement: speech and movement normal Course Vital Signs Vital signs: Vital Signs Temperature 37.6 C 07/22/22 10:56 Pulse 95 H 07/22/22 10:56 Respiratory Rate 18 07/22/22 10:56 Blood Pressure 121/71 07/22/22 10:56 Pulse Oximetry 99 07/22/22 10:56 Temperature 37.6 C 07/22/22 10:56 Temperature Source Temporal Artery Scan 07/22/22 10:56 Pulse 95 H 07/22/22 10:56 Respiratory Rate 18 07/22/22 10:56 Respiratory Effort Non-Labored 07/22/22 11:02 Blood Pressure 121/71 07/22/22 10:56 Blood Pressure Position Sitting 07/22/22 10:56 Pulse Oximetry 99 07/22/22 10:56 Oxygen Delivery Method Room Air 07/22/22 10:56 Oxygen Flow Rate 0 07/22/22 10:56
[2022-07-22 11:27] LABS: Bilirubin Negative (Negative); Blood Negative (Negative); Clarity Sl Cloudy (Clear); Glucose Negative (Negative); Ketones 15 mg/dL (Negative); Leukocyte Esterase Negative (Negative); Nitrite Negative (Negative); Urobilinogen 0.2 EU/dL (Up TO 0.2); pH 6.5 (5-8)
[2022-07-23 01:40] LABS: Influenza B RNA Result Negative (Negative); RSV RNA Result Negative (Negative)
[2022-07-23 09:15] LABS: Influenza A RNA Result Positive (Negative)
--- NOTE | 2022-07-23 09:20 | W.ED.FU ---
Follow Up Plan: left message 920 am 07/23/22 regarding flu a +
--- NOTE | 2022-07-23 09:21 | NUR.NOTE ---
Nursing Note: Accessed pt chart to document critical value.
== END 2022-07-22 12:27 | disposition home or self-care (01) ==
PROVIDERS: Emergency Provider Physician Assistant; PCP Family Medicine
DX: J10.1 Influenza due to other identified influenza virus with other respiratory manifestations (principal)
CPT/HCPCS: 81025; 87631; 87637; 99282; 81003

== ENCOUNTER 2022-11-19 13:31 | Outpatient (REF) | payer MEDICAID, SELFPAY ==
--- NOTE | 2022-11-19 13:10 | PAPFT_PTH ---
PATIENT: Malia Ledesma LOC: [facility] U#:[id number] AGE/SX: 32/F ROOM: RE11/19/[address]: Zeny Clemente MD : 1990 BED: DIS: 11/19/2022 SPEC #: [id number] RECD: 11/19/22 16:47 STATUS: SUSANNA REQ #: [id number] ANDREA: 11/19/22 13:[address]: Zeny Clemente DEPT: [facility] Cytology RECD BY: Camille Zuniga ENTERED: 11/19/22 16:47 SP TYPE: PAPFT OTHR DR: Margarito Curry Tissues: 1 - CX/ENDOCX FOR PAP SMEARS Procedures: PAP THIN PREP/UVM Screening HPV DNA PROBE Comments: [id number] (HPV 16 & 18/45) (CHLAMYDIA/GC)
[2022-11-21 14:41] LABS: Chlamydia Result Negative (Negative); GC Result Negative (Negative)
== END 2022-11-19 13:32 | disposition home or self-care (01) ==
LOC: LBN 13:31
PROVIDERS: PCP Family Medicine; Visit Provider Obstetrics & Gynecology
DX: Z11.3 Encounter for screening for infections with a predominantly sexual mode of transmission (principal); Z12.4 Encounter for screening for malignant neoplasm of cervix; R87.612 Low grade squamous intraepithelial lesion on cytologic smear of cervix (LGSIL); Z11.51 Encounter for screening for human papillomavirus (HPV); R87.810 Cervical high risk human papillomavirus (HPV) DNA test positive
CPT/HCPCS: 87491; 87591; 88142; 87624

== ENCOUNTER 2022-12-20 22:10 | Emergency (ER) | payer MEDICAID, SELFPAY ==
--- NOTE | 2022-12-20 22:15 | DI.CT_ITS ---
Exam(s) CT ABDOMEN PELVIS W EXAM: CT ABDOMEN PELVIS W CLINICAL HISTORY: Upper abd Pain, Nausea Vomiting. TECHNIQUE: Imaging Protocol: Axial computed tomography images with coronal and sagittal reformatted images were created and reviewed CONTRAST MATERIAL: Intravenous: Omnipaque-350 100cc Oral: None COMPARISON: CT CT RENAL COLIC WO from 08/24/[address] ABDOMEN PELVIS WO from 12/01/2021 FINDINGS: VISUALIZED LUNG BASES: No nodules nor pleural effusions evident. ABDOMEN: There is no ascites. LIVER: There are a few subtle small sub cm hypodensities in the right hepatic lobe of the liver. Sta tistically these are probably benign hemangiomas. No dilated intrahepatic ducts. GALLBLADDER/BILIARY: No obvious gallbladder pathology. CBD is not dilated. PANCREAS: No evidence of pancreatic mass nor dilatation of the pancreatic duct. SPLEEN: Spleen size is normal. There is a solitary hypodensity in the medial aspect of the spleen wh ich measures 9 mm. Probably represents a small cyst or hemangioma. Splenic and portal veins are pat ent. ADRENALS: There are no significant adrenal masses. KIDNEYS:No cysts evident. No solid renal masses. Punctate 1-2 millimeter calculus in left kidney not ed. Similar size punctate calcification in the right kidney noted. No hydronephrosis. No hydrouret er. No calculi in the urinary bladder.. ABDOMINAL AORTA: Abdominal aorta is not enlarged. LYMPH NODES:There is no retroperitoneal nor paraaortic adenopathy. ABDOMINAL WALL: No evidence of significant anterior abdominal wall nor inguinal hernia. GI: There few normal diameter fluid-filled small bowel loops in left side of the abdomen. Range up t o 2.3 cm size. No surrounding streaking nor ascites. PELVIS: GI: No evidence of appendicitis.No evidence of sigmoid diverticulitis. LYMPH NODES: There is no intrapelvic nor inguinal adenopathy. REPRODUCTIVE: Uterus and ovaries appear age-appropriate. No free fluid in the pelvis. URINARY BLADDER: No calculi nor obvious masses evident OSSEOUS: No fractures and no significant osseous lesions. IMPRESSION: 1. There are punctate nonobstructive calculi in both kidneys. No hydronephrosis. No hydroureter. N o calculi in the urinary bladder. 2. Few fluid filled but nondilated small bowel loops are seen in left side of the abdomen. There is no evidence of bowel obstruction. RADIATION DOSE DELIVERED: 1,014.49mGy.cm Total DLP DATA REPOSITORY: All CT scans at this facility are submitted to the National Radiology Data Registry (NRDR) Dose Index Registry (DIR) with the [employer] (ACR). RADIATION OPTIMIZATION: All CT scans at this facility use at least one of these dose optimization te chniques: automated exposure control; mA and/or kV adjustment per patient size (includes targeted exa ms where dose is matched to clinical indication); or iterative reconstruction.
[2022-12-20 22:29] VITALS: BP 128/83; PULSE 58; RESP 16; TEMP 36.5; O2SAT 98
--- NOTE | 2022-12-20 22:43 | ED.GENADUL_ITS ---
Discharge Plan Disposition Patient Disposition: Home Discharge Details Clinical Impression: Gastroenteritis Primary Care Provider: Margarito Curry ED Provider: Quynh Lopez Home Meds and New Rx's Prescriptions: No Action sertraline 100 mg tablet 200 mg PO HS Patient Comments: TAKE 2 TABLETS BY MOUTH DAILY Discharge Instructions Instructions: Gastroenteritis (ED) Additional Instructions: Take the nausea medication as directed. Return to the ER for any worsening vomiting worsening pain not relieved by Tylenol or ibuprofen. Follow a clear liquid diet for the next 48 to 72 hours. Follow up with primary care provider in 3-5 days. Return to ED sooner if any worsening or concerns. Increase oral fluids. Referrals: Margarito Curry [Primary Care Provider] - 5 days Discharge Data Discharge Date/Time-TO BE ENTERED AT DEPARTURE: 12/21/22 01:22 Medical Decision Making 32-year-old female presents to the ER with a chief complaint of upper abdominal pain worse upper right upper quadrant pain and nausea vomiting which began last night. She reports that she had vomiting and colicky type pain which radiates into her back. She does have a past medical history of depression anxiety disorder ADHD. She does take sertraline. She did take Tylenol a couple hours ago and 4 mg of Zofran prior to arrival. She describes it as sharp. Work-up ordered including CBC CMP, lipase, urinalysis, CT abdomen pelvis. Reglan, morphine and Pepcid ordered. Differential diagnosis includes but not limited to cholecystitis, gallstones, kidney stone, UTI pyelonephritis, less likely bowel obstruction or gastroenteritis. Labs are largely unremarkable. No elevated white blood cell count no UTI. CT abdomen pelvis results noted below. Questionable minor enteritis without significant obstruction. Zofran given to patient. Instructed on clear liquids for the next 2 to 3 days Tylenol ibuprofen and to return if any worse. Patient verbalized understanding. This text was generated using Easy Tempoation system, please disregard any oddities of phrase or misspellings. Medical Records Medical records reviewed: Yes I reviewed the patient's medical records. Imaging Data Radiologic Study: Imaging: CT Scan Radiologist's impression: IMPRESSION: 1. ? A potential very minor proximal enteritis in the right clinical scenario without significant obstruction. 2. ? Punctate nonobstructive nephrolithiasis similar to prior. Dictated and Authenticated by: Sue Sim MD. Lab Data Lab results reviewed: Yes I reviewed the patient's lab results. Labs: Laboratory Tests Range/Units 12/20/22 12/20/22 12/20/22 23:23 23:23 23:23 WBC (4.4-10.8) 10^3/uL 9.69 RBC (3.93-5.22) 10^6/uL 4.52 Hgb (11.2-15.7) g/dL 13.6 Hct (36.0-46.0) % 41.5 MCV (80-95) fL 92 MCH (27.0-33.0) pg 30.1 MCHC (32.0-36.0) % 32.8 RDW (11.7-14.6) % 12.2 Plt Count (130-400) 10^3/uL 309 MPV (8.0-11.0) fL 9.9 Immature Gran % 0.3 Neutrophils % 70.0 Lymphocytes % 18.9 Monocytes % 7.8 Eosinophils % 2.3 Basophils % 0.7 Nucleated RBC % (0.0-0.3) % 0.0 Absolute Neutrophils (1.2-6.7) 10^3/uL 6.78 H Absolute Lymphocytes (1.2-3.4) 10^3/uL 1.83 Absolute Monocytes (0.1-0.8) 10^3/uL 0.76 Absolute Eosinophils (0.0-0.7) 10^3/uL 0.22 Absolute Basophils (0.0-0.2) 10^3/uL 0.07 Sodium (136-145) mmol/L 138 Potassium (3.5-5.1) mmol/L 3.7 Chloride (98-107) mmol/L 104 Carbon Dioxide (21.0-32.0) mmol/L 28.5 Anion Gap (3-11) mmol/L 5.5 BUN (7-18) mg/dL 12 Creatinine (0.55-1.02) mg/dL 0.7 Est GFR (CKD-EPI 2020) (mL/min/1.73m2) 119.24 Glucose (74-106) mg/dL 93 Calcium (8.5-10.1) mg/dL 9.1 Magnesium (1.8-2.4) mg/dL 1.7 L Total Bilirubin (0.2-1.0) mg/dL 0.3 AST (15-37) U/L 18 ALT (14-59) U/L 38 Alkaline Phosphatase (46-116) U/L 69 Total Protein (6.4-8.2) g/dL 7.1 Albumin (3.4-5.0) g/dL 3.9 Lipase (16-77) U/L 33 Urine Color (Yellow) Yellow Urine Clarity (Clear) Clear Urine pH (5-8) 5.5 Ur Specific [place] (1.005-1.025) 1.020 Urine Protein (Negative) mg/dL Negative Urine Ketones (Negative) mg/dL Negative Urine Blood (Negative) Negative Urine Nitrite (Negative) Negative Urine Bilirubin (Negative) Negative Urine Urobilinogen (Up to 0.2) mg/dL 0.2 Ur Leukocyte Esterase (Negative) Negative Urine Glucose (Negative) mg/dL Negative HPI General Mode of arrival: ambulatory . Date/Time Provider Initiated Documentation: 12/20/22 22:12 . Limitations to Documentation: no limitations . Information obtained by: patient, RN notes reviewed and old records reviewed . HPI Narrative: 32-year-old female presents to the ER with a chief complaint of upper abdominal pain worse upper right upper quadrant pain and nausea vomiting which began last night. She reports that she had vomiting and colicky type pain which radiates into her back. She does have a past medical history of depression anxiety disorder ADHD. She does take sertraline. She did take Tylenol a couple hours ago and 4 mg of Zofran prior to arrival. She describes it as sharp. Denies any problems urinating or burning with urination. Related Data Home Medications Medication Instructions Recorded Confirmed sertraline 100 mg tablet 200 mg PO HS 06/26/20 12/20/22 Allergies Allergy/AdvReac Type Severity Reaction Status Date / Time Penicillins AdvReac Intermediate Hives Verified 11/19/22 12:44 General Stated Complaint: Abd Prob LETITIA: 3 Review of Systems All systems reviewed & are unremarkable except as noted in HPI and below Gastrointestinal Gastrointestinal: Reports abdominal pain, Reports nausea and Reports vomiting Genitourinary Genitourinary: Denies dysuria PFSH All Active Problems (Updated 12/21/22 @ 01:00 by Quynh Lopez NP) Depression (Acute) Generalized anxiety disorder (Chronic) ADHD (attention deficit hyperactivity disorder), combined type (Chronic) Eczema (Chronic) Herpes simplex type 1 infection (Acute 12/19/16) Panic (Acute) Gastroenteritis (Acute) Medical History History of acute pyelonephritis History of calculus of kidney during (12/19/16) 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 Vanessa Bryan MD Surgical History Cystoscopy (01/05/18) [facility] [place] Urology with R ureteral stent placement EGD w/Bx for H.Pylori (07/29/08) [facility] Family History Father , OD at age 42. Substance abuse Essential hypertension Mother Mental disorder Bipolar d/o Neoplasm small cell neuroendocrine carcinoma Sister Substance abuse Mental disorder Bipolar d/o Brother Substance abuse Mental disorder Bipolar d/o Brother Substance abuse Mental disorder Bipolar d/o Grandmother Neoplasm Breast CA Social History Smoking/Tobacco Use Status: Current every day Tobacco Type: cigarettes and e- cigarettes Tobacco: How many years used: 10 Quit status: has quit before Counseling given: provider counseling Smoking risk assessment performed?: Yes Alcohol Intake: former Details: Decided to quit drinking. Stopped 01/2019 Drug use: Occasionally Substance use type: marijuana Adopted: No Foster care: No Household members: significant other and children Number of Children: 2 current occupation: [employer] Pets and animals: Yes (1 dog) What type of physical activity do you participate in: regular exercise Duration: other Details: cleaning Frequency: daily Do you feel safe at home: Yes Do you feel safe in your relationship?: Yes Female Reproductive History Menstrual Duration of menses: 6-7 days control method: copper IUCD History History 2 Para 2 Hx # Term Pregnancies 2 Multiple births 0 Hx # Pregnancies 0 Ectopic pregnancies 0 AB induced 0 Hx Number of Living Children 2 AB spontaneous 0 Past Pregnancies Del. Date GA/Weeks # Preg Succ Route Wgt Sex Labor Lgth Anesth esia Location Prov Complic 11/20/16 40 vaginal 2920.001 g Female 9 hours regional 12/22/18 40 No vaginal 3685.438 g Female Sudhir Bauer,SAHARA Delivery Date: 11/20/16 Last Updated by: Vale Lizette Delivered at [place] Exam Narrative Exam Narrative: Constitutional: Alert and oriented x3. Appears stated age. Normal body habitus. Head: Normocephalic, no trauma. Eyes: Pupils PERRL, Red reflex noted, EOM's intact. Eyelids symmetrical without lesions, discharge, or swelling. ENT: Bilateral TM's WNL, External ear normal to inspection, no mastoid TTP, swelling, or erythema, Nasal turbinates WNL, no nasal discharge. Normal dentition, Posterior pharynx WNL, no exudate. Chest: RRR, Normal S1, S2, distal pulses intact. Resp: Lungs clear to auscultation bilaterally, no wheezes, rales, or rhonchi. Abdomen: Soft, non-distended, Normoactive bowel sounds all 4 quads. Tenderness with palpation right upper quadrant. No CVA tenderness Musculoskeletal: Normal gait, 5/5 strength to all four extremities. Skin: No suspicious rashes or lesions. Capillary refill less than 2 sec. Neurologic: Cranial nerves II-XII intact. Alert and oriented x 3. Motor: No deficits noted. Sensory: Intact bilaterally all 4 extremities. Reflexes: DTR's intact bilaterally.. Hematologic/Lymphatic: No ecchymosis, no lymphadenopathy. Course Vital Signs Vital signs: Vital Signs Temperature 36.5 C 12/20/22 22:29 Pulse 58 L 12/20/22 22:29 Respiratory Rate 16 12/20/22 22:29 Blood Pressure 128/83 12/20/22 22:29 Pulse Oximetry 98 12/20/22 22:29 Temperature 36.5 C 12/20/22 22:29 Temperature Source Tympanic 12/20/22 22:29 Pulse 58 L 12/20/22 22:29 Respiratory Rate 16 12/20/22 22:29 Respiratory Effort Normal 12/20/22 22:32 Blood Pressure 128/83 12/20/22 22:29 Blood Pressure Position Sitting 12/20/22 22:29 Pulse Oximetry 98 12/20/22 22:29 Oxygen Delivery Method Room Air 12/20/22 22:29 Oxygen Flow Rate 0 12/20/22 22:29 Pain Level 9 12/20/22 22:29
[2022-12-20] MEDS: MORPHine 10 MG/ML VIAL 2 MG IVP (23:24)
[2022-12-20] MEDS: Metoclopramide 10 MG/2 ML VIAL IVP (23:24)
[2022-12-20] MEDS: Normal Saline 1,000 ML 1000 ML IV (23:25)
[2022-12-20] MEDS: FAMOTIDINE 20 MG in Normal Saline 100 ML 400 MG IVPB (23:26)
[2022-12-20 23:36] LABS: Abs Immature Grans 0.03 10^3/uL (0.0-0.06); Absolute Basophil Count 0.07 10^3/uL (0.0-0.2); Absolute Eosinophil Count 0.22 10^3/uL (0.0-0.7); Absolute Lymphocyte Count 1.83 10^3/uL (1.2-3.4); Absolute Monocyte Count 0.76 10^3/uL (0.1-0.8); Absolute Neutrophil Count 6.78 10^3/uL (1.2-6.7); Basophils % 0.7; Eosinophils % 2.3; HCT 41.5 % (36.0-46.0); HGB 13.6 g/dL (11.2-15.7); Immature Grans % 0.3; Lymphocytes % 18.9; MCH 30.1 pg (27.0-33.0); MCHC 32.8 % (32.0-36.0); MCV 92 fL (80-95); MPV 9.9 fL (8.0-11.0); Monocytes % 7.8; Platelet Count 309 10^3/uL (130-400); RBC 4.52 10^6/uL (3.93-5.22); RDW 12.2 % (11.7-14.6); RDW-SD 40.8 fL; WBC 9.69 10^3/uL (4.4-10.8)
[2022-12-20 23:38] LABS: Bilirubin Negative (Negative); Blood Negative (Negative); Clarity Clear (Clear); Glucose Negative (Negative); Ketones Negative (Negative); Leukocyte Esterase Negative (Negative); Nitrite Negative (Negative); Urobilinogen 0.2 mg/dL (Up to 0.2); pH 5.5 (5-8)
[2022-12-20 23:50] LABS: ALT 38 U/L (14-59); AST 18 U/L (15-37); Albumin 3.9 g/dL (3.4-5.0); Alkaline Phosphatase 69 U/L (46-116); Anion Gap 5.5 mmol/L (3-11); BUN 12 mg/dL (7-18); Bilirubin, Total 0.3 mg/dL (0.2-1.0); CO2 28.5 mmol/L (21.0-32.0); CREATININE 0.7 mg/dL (0.55-1.02); Calcium 9.1 mg/dL (8.5-10.1); Chloride 104 mmol/L (98-107); Estimated GFR 119.24 (mL/min/1.73m2); Glucose 93 mg/dL (74-106); Lipase 33 U/L (16-77); Magnesium 1.7 mg/dL (1.8-2.4); Potassium 3.7 mmol/L (3.5-5.1); Sodium 138 mmol/L (136-145); Total Protein 7.1 g/dL (6.4-8.2)
[2022-12-20] MEDS: Normal Saline - Diluent 50 ML VIAL IJ (23:58)
[2022-12-20] MEDS: Omnipaque 350 MG/ML 100 ML BTL IJ (23:58)
[2022-12-21] MEDS: MORPHine 10 MG/ML VIAL 2 MG IVP (00:29)
--- NOTE | 2022-12-21 00:41 | DI.VRAD_ITS ---
PROCEDURE INFORMATION: Exam: CT Abdomen And Pelvis With Contrast Exam date and time: 12/20/2022 23:58 Age: 32 years old Clinical indication: Abdominal pain; Localized; Upper TECHNIQUE: Imaging protocol: Computed tomography of the abdomen and pelvis with contrast. Radiation optimization: All CT scans at this facility use at least one of these dose optimization techniques: automated exposure control; mA and/or kV adjustment per patient size (includes targeted exams where dose is matched to clinical indication); or iterative reconstruction. Contrast material: OMNI 350; Contrast volume: 100 ml; Contrast route: INTRAVENOUS (IV); COMPARISON: CT ABDOMEN PELVIS WO 12/01/2021 19:09 FINDINGS: Lungs: Minimal dependent subsegmental atelectasis. Liver: Tiny hepatic hypodensities likely benign cysts. Focal fat in the liver near the fissure for the ligamentum teres. No hepatic masses. Gallbladder and bile ducts: No calcified stones. No ductal dilation. Pancreas: No ductal dilation. No masses. Spleen: No splenomegaly or focal lesions. Adrenal glands: No mass. Kidneys and ureters: Punctate nonobstructive nephrolithiasis similar to prior. No renal masses or hydronephrosis bilaterally. Minor mid right renal cortical scarring. Stomach and bowel: A few proximal small bowel loops with air-fluid levels and upper limits of normal distension with no wall thickening or transition point. Appendix: No evidence of appendicitis. Intraperitoneal space: No free air. No significant fluid collection. Vasculature: No abdominal aortic aneurysm. Lymph nodes: No significantly enlarged lymph nodes. Urinary bladder: Unremarkable as visualized. Reproductive: Unremarkable as visualized. Bones/joints: No acute fracture. Soft tissues: No suspicious lesions. IMPRESSION: 1. A potential very minor proximal enteritis in the right clinical scenario without significant obstruction. 2. Punctate nonobstructive nephrolithiasis similar to prior. Dictated and Authenticated by: Sue Sim MD. Ordering:JOSÉ LUIS Beauchamp MD
[2022-12-21] MEDS: Ondansetron O.D.T. 4 MG TABEF, 3 TABS/BTL PO (01:19)
[2022-12-21 01:20] VITALS: BP 111/69; PULSE 50; RESP 16; TEMP 36.3; O2SAT 100
== END 2022-12-21 01:22 | disposition home or self-care (01) ==
PROVIDERS: Emergency Provider Registered Nurse Emergency; PCP Family Medicine
DX: K52.9 Noninfective gastroenteritis and colitis, unspecified (principal)
CPT/HCPCS: 80053; 81025; 83690; 96361; 96365; 96375; 99285; 74177; 81003; 83735; 85025; 99284; J2270; J2765; J3490

== ENCOUNTER 2023-01-20 16:09 | Outpatient (REF) | payer MEDICAID, SELFPAY ==
--- NOTE | 2023-01-20 16:08 | CER_PTH ---
PATIENT: Malia Ledesma LOC: [facility] U#:[id number] AGE/SX: 32/F ROOM: RE01/20/[address]: Zeny Clemente MD : 1990 BED: DIS: 01/20/2023 SPEC #: [id number] RECD: 01/20/23 17:47 STATUS: SUSANNA REQ #: [id number] ANDREA: 01/20/23 16:[address]: Zeny Clemente DEPT: Surgical Specimen RECD BY: Camille Zuniga ENTERED: 01/20/23 17:48 SP TYPE: CER OTHR DR: Margarito Curry Tissues: 1 - CERVICAL BIOPSY 2 - ENDOCERVICAL BX/CURRETTE Procedures: GROSS AND MICRO LEVEL 4 Comments:
== END 2023-01-20 16:10 | disposition home or self-care (01) ==
LOC: LBN 16:09
PROVIDERS: PCP Family Medicine; Visit Provider Obstetrics & Gynecology
DX: R87.612 Low grade squamous intraepithelial lesion on cytologic smear of cervix (LGSIL) (principal); R87.810 Cervical high risk human papillomavirus (HPV) DNA test positive; N88.8 Other specified noninflammatory disorders of cervix uteri
CPT/HCPCS: 88305

== ENCOUNTER 2023-04-30 21:27 | Outpatient (REF) | payer MEDICAID, SELFPAY ==
[2023-04-30 21:41] LABS: Source Nasal/Nares
[2023-04-30 22:18] LABS: COVID-19 PCR Negative (Negative)
[2023-05-02 13:28] LABS: Chlamydia Result Negative (Negative); GC Result Negative (Negative)
== END 2023-04-30 21:28 | disposition home or self-care (01) ==
LOC: LBN 21:27
PROVIDERS: PCP Family Medicine; Visit Provider Physician Assistant Medical
DX: R05.8 Other specified cough (principal); N89.8 Other specified noninflammatory disorders of vagina; Z20.822 Contact with and (suspected) exposure to COVID-19; N76.0 Acute vaginitis
CPT/HCPCS: 87491; 87591; 87635; 87480; 87510; 87660

== ENCOUNTER 2023-05-27 08:02 | Emergency (ER) | payer SELFPAY ==
[2023-05-27 08:15] VITALS: BP 144/106; PULSE 68; RESP 18; TEMP 36.6; O2SAT 97
--- NOTE | 2023-05-27 08:15 | DI.RAD_ITS ---
Exam(s) XR CHEST 2V PA LATERAL EXAM: XR CHEST 2V PA LATERAL CLINICAL HISTORY: cough, r/o pneumonia TECHNIQUE: 2D digital imaging was performed of the chest. Two images were obtained. PA and lateral views were obtained. COMPARISON: No exams were available for comparison FINDINGS: MEDIASTINUM: Normal. HEART: Normal. PULMONARY VASCULATURE: Normal. LUNGS: There is a linear opacity in the right upper lobe. The lungs are otherwise clear. PLEURAL SPACE: No pleural effusion or pneumothorax. BONE:Within normal limits for the patient's age. OTHER FINDINGS:Normal. IMPRESSION: Linear right upper lobe opacity. This may represent atelectasis, scarring or pneumonia. A follow-up chest x-ray in 1 month is recommended to document resolution of the opacity. DATA REPOSITORY: RADIATION DOSE DELIVERED:
--- NOTE | 2023-05-27 08:25 | ED.GENADUL_ITS ---
Discharge Plan Disposition Patient Disposition: Home Discharge Details Clinical Impression: Pneumonia Primary Care Provider: Margarito Curry ED Provider: Scott Pham Home Meds and New Rx's Prescriptions: New doxycycline hyclate 100 mg tablet 100 mg PO BID Qty: 20 0RF No Action sertraline [Zoloft] 100 mg tablet 200 mg PO HS Patient Comments: TAKE 2 TABLETS BY MOUTH DAILY Discharge Instructions Instructions: Pneumonia (ED) Additional Instructions: At this time you do have evidence of pneumonia in your right upper lung. Please take the antibiotic as directed. Please take the inhaler, 2 puffs every 12 hours. Please be aware that the antibiotic that you will be started on can cause you to throw up if you take it on an empty stomach. It can make your skin notably more sensitive to sunlight. Do not take the antibiotic with any calcium supplements or dairy products as this can inhibit its ability to adequately treat your infection. The nature of the pneumonia is slightly atypical in the x-ray, so please get a repeat x-ray in 1 month to make sure there is resolution. If you notice any worsening of your symptoms, or any new symptoms such as vomiting, diarrhea, fever, chills, shortness of breath, chest pain, numbness, weakness, or fainting , please return immediately to the emergency department for reevaluation. Please follow up with your primary care provider as soon as possible for reassessment and reevaluation. As always, it was a pleasure participating in your medical care today. Referrals: Margarito Curry [Primary Care Provider] - Medical Decision Making 32-year-old female with past medical history of ADHD, depression, generalized anxiety disorder, HSV type I in the past, presents today for evaluation of cough and congestion. Patient states that about 2 to 3 weeks ago she developed a mild cough, she was seen and evaluated by urgent care, she had a 5-day course of antibiotics which was likely azithromycin, symptoms stabilized but the cough mildly continued. Then a few days ago she developed congestion, runny nose, worsening cough, and occasional chills. She states that her cough is productive with white/clear sputum. She denies any hemoptysis. No headache or neck pain currently. She does vape, but denies any tobacco intake, no other complaints at this time. No other modifying factors. Exam demonstrates clear lung sounds, no tachycardia, no fever. Oxygen saturations normal. Differential is highest for a viral etiology causing postnasal drip and subsequent worsening cough, however lingering pneumonia is of concern. We will get a chest x-ray, test for flu COVID and RSV, and give Tessalon Perles. 9:23 AM X-ray shows evidence of a right upper lobe opacity concerning for pneumonia. We will start the patient on 10-day doxycycline prescription, will give Symbicort for home use for persistent cough as well as Tessalon Perles. Patient otherwise notably hemodynamically stable especially from respiratory standpoint. Patient stable for discharge. COVID flu and RSV negative. Discussed red flags for which to return. Will give dose of Doxy here, and then prescription for home use. I have extensively reviewed the treatment plan and discharge instructions with the patient. I have addressed all patient concerns at this time. The patient was made aware of what symptoms to monitor for that would warrant a return to the emergency department. Discussed the plan with the patient, they demonstrate verbal understanding and agreement with our assessment and plan at this time. The documentation in this chart was dictated using Appirio dictation software. Please excuse any dictation errors. FINDINGS: MEDIASTINUM: Normal. HEART: Normal. PULMONARY VASCULATURE: Normal. LUNGS: There is a linear opacity in the right upper lobe. The lungs are otherwise clear. PLEURAL SPACE: No pleural effusion or pneumothorax. BONE:Within normal limits for the patient's age. OTHER FINDINGS:Normal. IMPRESSION: Linear right upper lobe opacity. This may represent atelectasis, scarring or pneumonia. A follow-up chest x-ray in 1 month is recommended to document resolution of the opacity. HPI General Date/Time Provider Initiated Documentation: 05/27/23 08:03 . 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 Patient states that about 2 to 3 weeks ago she developed a mild cough, she was seen and evaluated by urgent care, she had a 5-day course of antibiotics which was likely azithromycin, symptoms stabilized but the cough mildly continued. Then a few days ago she developed congestion, runny nose, worsening cough, and occasional chills. She states that her cough is productive with white/clear sputum. She denies any hemoptysis. No headache or neck pain currently. She does vape, but denies any tobacco intake, no other complaints at this time. No other modifying factors. Related Data Home Medications Medication Instructions Recorded Confirmed sertraline 100 mg tablet (Zoloft) 200 mg PO HS 06/26/20 05/27/23 doxycycline hyclate 100 mg tablet 100 mg PO BID #20 tabs 05/27/23 Previous Rx's Medication Instructions Recorded doxycycline hyclate 100 mg tablet 100 mg PO BID #20 tabs 05/27/23 Allergies Allergy/AdvReac Type Severity Reaction Status Date / Time Penicillins AdvReac Intermediate Hives Verified 05/27/23 08:19 General Stated Complaint: GenMedical LETITIA: 3 Review of Systems All systems reviewed & are unremarkable except as noted in HPI and below PFSH All Active Problems (Updated 05/27/23 @ 09:25 by Scott Pham DO) Depression (Acute) Generalized anxiety disorder (Chronic) ADHD (attention deficit hyperactivity disorder), combined type (Chronic) Eczema (Chronic) Herpes simplex type 1 infection (Acute 12/19/16) Panic (Acute) Pneumonia (Acute) Medical History History of acute pyelonephritis History of calculus of kidney during (12/19/16) History of cervical dysplasia December 2022: LSIL/HPV+ -->[place]: pending January 2022: colp --> CIN1 October 2021: LSIL/No HPV October 2020: Normal pap/No HPV Apr 2019: Normal pap/Neg HPV Apr 2018: ASCUS/HPV+ History of substance abuse (12/19/16) Neoplasm of uncertain behavior, unspecified new pt visit at [facility] [place] Derm 05/24/19. Vanessa Bryan MD Surgical History Cystoscopy (01/05/18) [facility] [place] Urology with R ureteral stent placement EGD w/Bx for H.Pylori (07/29/08) [facility] Family History Father , OD at age 42. Substance abuse Essential hypertension Mother Mental disorder Bipolar d/o Neoplasm small cell neuroendocrine carcinoma Sister Substance abuse Mental disorder Bipolar d/o Brother Substance abuse Mental disorder Bipolar d/o Brother Substance abuse Mental disorder Bipolar d/o Grandmother Neoplasm Breast CA Social History Smoking/Tobacco Use Status: Current every day Tobacco Type: cigarettes and e- cigarettes Tobacco: How many years used: 10 Quit status: has quit before Counseling given: provider counseling Smoking risk assessment performed?: Yes Alcohol Intake: former Details: Decided to quit drinking. Stopped 01/2019 Drug use: Occasionally Substance use type: marijuana Adopted: No Foster care: No Household members: significant other and children Number of Children: 2 current occupation: [employer] Pets and animals: Yes (1 dog) What type of physical activity do you participate in: regular exercise Duration: other Details: cleaning Frequency: daily Do you feel safe at home: Yes Do you feel safe in your relationship?: Yes Female Reproductive History Menstrual Duration of menses: 6-7 days control method: copper IUCD History History 2 Para 2 Hx # Term Pregnancies 2 Multiple births 0 Hx # Pregnancies 0 Ectopic pregnancies 0 AB induced 0 Hx Number of Living Children 2 AB spontaneous 0 Past Pregnancies Del. Date GA/Weeks # Preg Succ Route Wgt Sex Labor Lgth Anesth esia Location Prov [facility] 11/20/16 40 vaginal 2920.001 g Female 9 hours regional 12/22/18 40 No vaginal 3685.438 g Female Sudhir Bauer CNM Delivery Date: 11/20/16 Last Updated by: Vale Bauer Delivered at [place] Exam Narrative Exam Narrative: 1.Const: Well-nourished, Well-developed, appearing stated age 2.Eyes: PERRL, no conjunctival injection, and symmetrical lids. 3.ENT: Atraumatic external nose and ears. Moist MM. Neck: Symmetric, trachea midline, No thyromegaly. Mild effusion behind the left tympanic membrane. Effusion is clear/yellow. No purulent discharge. Mildly enlarged tonsils. No erythema or exudates 4.CVS: +S1/S2, No murmurs or gallops. Peripheral pulses 2+ and equal in all extremities. Brisk capillary refill in all extremities. 5.RESP: Unlabored respiratory effort. Clear to auscultation bilaterally. No wheezes rales or rhonchi 6.GI: Soft, Nontender/Nondistended, No hepatosplenomegaly. No guarding or rebound. 7.MSK: Normocephalic/Atraumatic, Extremities w/o deformity or ttp No cyanosis or clubbing, Normal movement of all extremities 8.Skin: Warm, Dry. No rashes or lesions. 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 Sensation grossly intact, no focal neurologic deficits. 10.Psych: (AAO) x3. Appropriate mood and affect Course Vital Signs Vital signs: Vital Signs Temperature 36.6 C 05/27/23 08:15 Pulse 68 05/27/23 08:15 Respiratory Rate 18 05/27/23 08:15 Blood Pressure 144/106 H 05/27/23 08:15 Pulse Oximetry 97 05/27/23 08:15 Temperature 36.6 C 05/27/23 08:15 Temperature Source Temporal Artery Scan 05/27/23 08:15 Pulse 68 05/27/23 08:15 Respiratory Rate 18 05/27/23 08:15 Respiratory Effort Normal, Non-Labored 05/27/23 08:19 Blood Pressure 144/106 H 05/27/23 08:15 Blood Pressure Position Sitting 05/27/23 08:15 Pulse Oximetry 97 05/27/23 08:15 Oxygen Delivery Method Room Air 05/27/23 08:15 Oxygen Flow Rate 0 05/27/23 08:15
[2023-05-27] MEDS: Benzonatate 100 MG CAP 200 MG PO (08:43)
[2023-05-27] MEDS: Budesonide/Formoterol 160/4.5 6 GM 60 PUFF INH IH (08:44)
[2023-05-27 09:09] LABS: COVID-19 PCR Negative (Negative); Influenza A PCR Negative (Negative); Influenza B PCR Negative (Negative); RSV PCR Negative (Negative)
[2023-05-27 09:10] LABS: Source Nasopharynx
[2023-05-27] MEDS: Inhaler, Assist Device 1 EACH MC (09:15)
[2023-05-27 09:46] VITALS: BP 120/90; PULSE 63; RESP 14; TEMP 36.4; O2SAT 96
--- NOTE | 2023-05-28 15:55 | NUR.NOTE ---
Nursing Note: PT called asking for a work note as she forgot to ask for it at time of discharge.
== END 2023-05-27 09:47 | disposition home or self-care (01) ==
PROVIDERS: Emergency Provider Student in an Organized Health Care Education/Training Program; PCP Family Medicine
DX: J18.9 Pneumonia, unspecified organism (principal); F17.210 Nicotine dependence, cigarettes, uncomplicated; Z20.822 Contact with and (suspected) exposure to COVID-19
CPT/HCPCS: 81025; 87637; 99283; 71046

== ENCOUNTER → 2023-06-26 00:43 | Outpatient (CLI) | payer BC, SELFPAY ==
--- NOTE | 2023-06-26 | DI.RAD_ITS ---
Exam(s) XR CHEST 2V PA LATERAL EXAM: XR CHEST 2V PA LATERAL CLINICAL HISTORY: PULMONARY INFILTRATE R91.8 TECHNIQUE: 2D digital imaging was performed. COMPARISON: CR XR CHEST 2V PA LATERAL from 05/27/2023 FINDINGS: HEART: Normal size. Aorta: Not dilated. PULMONARY VASCULATURE: Normal. LUNGS: Improvement in area linear atelectasis previously noted in the right upper lobe. Minimal resi dual scarring. No new abnormalities. PLEURAL SPACE: No pleural effusion or pneumothorax. BONE:Unremarkable for age. IMPRESSION: Improvement in right upper lobe linear atelectasis DATA REPOSITORY: RADIATION DOSE DELIVERED:
== END ==
PROVIDERS: PCP Family Medicine; Visit Provider Family Medicine
DX: R91.8 Other nonspecific abnormal finding of lung field (principal)
CPT/HCPCS: 71046

== ENCOUNTER 2023-07-15 19:20 | Outpatient (REF) | payer BC, SELFPAY ==
[2023-07-15 15:17] LABS: HCT 43.4 % (36.0-46.0); HGB 14.1 g/dL (11.2-15.7); MCH 29.7 pg (27.0-33.0); MCHC 32.5 % (32.0-36.0); MCV 91 fL (80-95); MPV 10.5 fL (8.0-11.0); Platelet Count 291 10^3/uL (130-400); RBC 4.75 10^6/uL (3.93-5.22); RDW 12.4 % (11.7-14.6); RDW-SD 41.7 fL; WBC 7.18 10^3/uL (4.4-10.8)
[2023-07-15 15:56] LABS: ALT 37 U/L (14-59); AST 24 U/L (15-37); Albumin 3.9 g/dL (3.4-5.0); Alkaline Phosphatase 64 U/L (46-116); Anion Gap 9.7 mmol/L (3-11); BUN 9 mg/dL (7-18); Bilirubin, Total 0.6 mg/dL (0.2-1.0); CO2 26.3 mmol/L (21.0-32.0); CREATININE 0.7 mg/dL (0.55-1.02); Calcium 9.4 mg/dL (8.5-10.1); Chloride 104 mmol/L (98-107); Estimated GFR 119.24 (mL/min/1.73m2); Glucose 90 mg/dL (74-106); Magnesium 2.1 mg/dL (1.8-2.4); Potassium 4.4 mmol/L (3.5-5.1); Sodium 140 mmol/L (136-145); Total Protein 7.1 g/dL (6.4-8.2); Vitamin B12 536 pg/mL (193-986)
== END 2023-07-15 19:21 | disposition home or self-care (01) ==
LOC: NCHCN 19:20
PROVIDERS: PCP Family Medicine; Visit Provider Family Medicine
DX: F10.20 Alcohol dependence, uncomplicated (principal)
CPT/HCPCS: 80053; 85027; 82607; 82746; 83735

== ENCOUNTER 2023-10-22 17:28 | Emergency (ER) | payer BC, SELFPAY ==
[2023-10-22] VITALS (58 sets, daily range): BP systolic 126–179; BP diastolic 98–120; PULSE 90–108; RESP 18; TEMP 37.3; O2SAT 95–100
--- NOTE | 2023-10-22 18:07 | ED.GENADUL_ITS ---
Discharge Plan Disposition Patient Disposition: Home Condition: Stable Discharge Details Clinical Impression: Alcohol use disorder Primary Care Provider: Margarito Curry ED Provider: Scott Florez Home Meds and New Rx's Prescriptions: Continued sertraline [Zoloft] 100 mg tablet 50 mg PO HS naltrexone 50 mg tablet Patient Comments: TAKE ONE TABLET BY MOUTH EVERY DAY diazepam 10 mg tablet Patient Comments: TAKE 2 TABLETS BY MOUTH NOW THEN 1 TABLET EVERY 6 HOURS FOR 24HOURS, THEN TWO TIMES A DAY FOR 2 DAYS THEN DAILY FOR 2 DAYS albuterol sulfate [Ventolin HFA] 90 mcg/actuation HFA aerosol inhaler INHALATION Patient Comments: INHALE TWO PUFFS BY MOUTH EVERY 4 TO 6 HOURS NEEDED FOR COUGHING FITS, SHORTNESS OF BREATH, OR WHEEZING. USE WITH SPACER diazepam 5 mg tablet Patient Comments: TAKE 1 TABLET BY MOUTH EVERY 6 HOURS FOR 2 DAYS, THEN TAKE 1 TABLET EVERY 8 HOURS FOR 2 DAYS, THEN TAKE 1 TABLET EVERY 12 HOURS FOR 1 DAY, T lisdexamfetamine 30 mg capsule Patient Comments: TAKE ONE CAPSULE BY MOUTH EVERY DAY Discharge Instructions Instructions: Gastritis (ED), Diet for Stomach Ulcers and Gastritis (ED) Additional Instructions: You were seen in the emergency department for your gastritis, you need to be referred to the surgical office for an upper endoscopy. In the meantime you can purchase [id number] famotidine which is a medicine use to help treat gastritis. Take 1 of these tablets once to twice per day for up to 2 weeks to allow this time for the stomach lining to heal. Continue your benzo taper for alcohol use disorder. Please return to the ED for any emergent concerns like chest pain, vomiting of blood, severe increase in pain with fever Referrals: Margarito Curry [Primary Care Provider] - Discharge Data Discharge Date/Time-TO BE ENTERED AT DEPARTURE: 10/22/23 21:26 HPI General Date/Time Provider Initiated Documentation: 10/22/23 17:37 . HPI Narrative: 33 year-old female presents to ED today by POV/ambulating with a chief complaint of stomach pain, ETOH abuse issues- currently on benzo taper, last drink 3 days ago- has remote history of benzodiazepene abuse- requesting EGD with onset of abdominal pain during the night last night. Quality described as diffuse aching abdominal pain, no radiation to shakiness, hematemesis or vomiting, weakness, slurred speech, intoxication. Severity is described as moderate. Palliating factors include on diazepam taper, states it is helping. Provoking factors include nothing specific. Events leading up to the incident/Associated Symptoms: Patient reports long period of sobriety- recent relapse to ETOH on her second benzo taper in a few weeks, states no SI/HI. Patient not anticoagulated. Related Data Home Medications Medication Instructions Recorded Confirmed sertraline 100 mg tablet (Zoloft) 50 mg PO HS 06/26/20 10/22/23 albuterol sulfate 90 mcg/actuation inhalation 10/22/23 aerosol inhaler (Ventolin HFA) diazepam 10 mg tablet mg 10/22/23 diazepam 5 mg tablet mg 10/22/23 lisdexamfetamine 30 mg capsule mg 10/22/23 naltrexone 50 mg tablet mg 10/22/23 Allergies Allergy/AdvReac Type Severity Reaction Status Date / Time Penicillins AdvReac Intermediate Hives Verified 10/22/23 17:38 General Stated Complaint: Abd Prob LETITIA: 3 Review of Systems All systems reviewed & are unremarkable except as noted in HPI and below Exam Narrative Exam Narrative: GENERAL APPEARANCE: Well-nourished, non-toxic, awake and alert, atraumatic, no acute distress. SKIN: Warm, pink, dry, intact, without rashes/lesions/ulcerations. HEAD: Normocephalic, atraumatic, normal hair distribution for gender/age. EYES: Pupils PERRLA, EOMs intact without nystagmus, normal conjunctiva, no exudates on lids/lashes. ENT: Nares patent, no circumoral cyanosis, no facial swelling NECK: Supple, trachea midline, painless cervical ROM. LUNGS/CHEST: Lungs CTA bilaterally- no rhonchi/rales/wheezes diffusely, non- labored respirations, normal A/P diameter, symmetrical expansion, no chest wall deformity HEART (CV/PV): Regular rate and rhythm without murmur, no peripheral edema, no JVD. ABDOMEN: Soft, non-distended, no guarding, mild epigastric tenderness. MSK: Normal ROM, no swelling/deformity to bilateral UEs or LEs, moving all extremities without weakness, no cyanosis, spine midline without tenderness, normal curvature. NEURO: Mental Status AAOx4 - alert to person, place, time, events No facial droop, no forehead involvement. Motor: No focal weakness - strength 5/5 in bilateral UEs and LEs, proximal and distal, symmetric. Sensory: sensation intact to light touch globally. Gait normal: patient ambulated without ataxia into ED room. PSYCH: euthymic, cooperative, pleasant, appropriate speech Course Vital Signs Vital signs: Vital Signs Temperature 37.3 C 10/22/23 17:32 Pulse 108 H 10/22/23 17:32 Respiratory Rate 18 10/22/23 17:32 Blood Pressure 179/120 H 10/22/23 17:32 Pulse Oximetry 97 10/22/23 17:32 Temperature 37.3 C 10/22/23 17:32 Temperature Source Skin 10/22/23 17:32 Pulse 108 H 10/22/23 17:32 Respiratory Rate 18 10/22/23 17:32 Respiratory Effort Normal, Non-Labored 10/22/23 17:37 Blood Pressure 179/120 H 10/22/23 17:32 Blood Pressure Position Sitting 10/22/23 17:32 Pulse Oximetry 97 10/22/23 17:32 Oxygen Delivery Method Room Air 10/22/23 17:32 Oxygen Flow Rate 0 10/22/23 17:32 Pain Level 8 10/22/23 17:32 Lab/Test Results Lab/Test Results: POC- Test(urine) Negative Medical Decision Making This dictation utilizes dxlss-br-gaga dictation software and may contain unedited grammatical errors. 33 y/o F presents to ED today with a chief complaint of abdominal pain, requesting EGD for ulcer diagnosis, reports recent ETOH use currently on benzo taper, denies SI/HI. Patient is not actively intoxicated nor actively withdrawing, no vomiting. Patients' medical history: History of substance abuse, history of pyelonephritis, depression, alcohol use disorder, past benzo use disorder. Family and social history: last ETOH 3 days ago, denies SI/HI, no rece nt travel, is employed. Pertinent exam findings / vital signs include mild epigastric tenderness, benign cardiopulmonary exam, nontoxic vitals, neuro intact. Differential / pathologies of concern include gastritis, alcohol use disorder, at risk for relapse due to benzo use disorder. Diagnostic studies of: -CBC, CMP, magnesium, lipase, UA. -no leukocytosis or anemia -magnesium 1.6, recommend PO supplements -ALT/AST elevated, discussed ETOH related liver damage -Lipase wnl -UA shows bilirubin, ketones, protein Interventions of: -0.5mg ativan, recommend OTC famotidine x2 weeks while awaiting PCP scheduled EGD. ED Course/Assessment/Plan: 33-year-old female presents with recent relapse of alcohol use disorder, on a second benzodiazepine taper with last drink 3 days ago, not actively intoxicated or withdrawing, discussed that she needs upper endoscopy to diagnose any ulcerative pathology but that she could take ccth-sqh-pchjxox famotidine twice per day for 2 weeks while awaiting scheduling for trial of relief. She is on a benzodiazepine taper, I counseled her on her abnormal liver enzymes as well as mild hypomagnesemia. Recommend that she follow-up with PCP and take over-the- counter supplements as well as perform diet for gastritis and cessation of alcohol use. Findings not consistent with active alcohol withdrawal. Disposition of alcohol use disorder. Patient verbalized understanding of the plan and return to ED criteria and engaged in shared decision making. Medical Records Medical records reviewed: Yes I reviewed the patient's medical records. Lab Data Lab results reviewed: Yes I reviewed the patient's lab results. Labs: Laboratory Tests Range/Units 10/22/23 10/22/23 17:51 18:00 WBC (4.4-10.8) 10^3/uL 8.23 RBC (3.93-5.22) 10^6/uL 4.99 Hgb (11.2-15.7) g/dL 15.3 Hct (36.0-46.0) % 46.4 H MCV (80-95) fL 93 MCH (27.0-33.0) pg 30.7 MCHC (32.0-36.0) % 33.0 RDW (11.7-14.6) % 13.5 Plt Count (130-400) 10^3/uL 263 MPV (8.0-11.0) fL 9.6 Immature Gran % 0.2 Neutrophils % 81.9 Lymphocytes % 9.2 Monocytes % 6.8 Eosinophils % 1.3 Basophils % 0.6 Nucleated RBC % (0.0-0.3) % 0.0 Absolute Neutrophils (1.2-6.7) 10^3/uL 6.73 H Absolute Lymphocytes (1.2-3.4) 10^3/uL 0.76 L Absolute Monocytes (0.1-0.8) 10^3/uL 0.56 Absolute Eosinophils (0.0-0.7) 10^3/uL 0.11 Absolute Basophils (0.0-0.2) 10^3/uL 0.05 Sodium (136-145) mmol/L 139 Potassium (3.5-5.1) mmol/L 3.8 Chloride (98-107) mmol/L 101 Carbon Dioxide (21.0-32.0) mmol/L 27.0 Anion Gap (3-11) mmol/L 11.0 BUN (7-18) mg/dL 10 Creatinine (0.55-1.02) mg/dL 0.8 Est GFR (CKD-EPI 2020) (mL/min/1.73m2) 100.96 Glucose (74-106) mg/dL 101 Calcium (8.5-10.1) mg/dL 9.6 Magnesium (1.8-2.4) mg/dL 1.6 L Total Bilirubin (0.2-1.0) mg/dL 0.7 AST (15-37) U/L 75 H ALT (14-59) U/L 181 H Alkaline Phosphatase (46-116) U/L 73 Troponin I (< or =60) ng/L < 50 Total Protein (6.4-8.2) g/dL 8.0 Albumin (3.4-5.0) g/dL 4.1 Lipase (16-77) U/L 29 Urine Color (Yellow) Yellow Urine Clarity (Clear) Clear Urine pH (5-8) 7.5 Ur Specific [place] (1.005-1.025) 1.020 Urine Protein (Neg-Trace) mg/dL 30 H Urine Ketones (Negative) mg/dL 40 H Urine Blood (Negative) Negative Urine Nitrite (Negative) Negative Urine Bilirubin (Negative) Moderate H Urine Urobilinogen (Up to 0.2) mg/dL 1.0 H Ur Leukocyte Esterase (Negative) Negative Urine RBC (0-2) HPF Negative Urine WBC (0-5) HPF 0-2 Ur Epithelial Cells (Negative) HPF Rare Urine Crystals (Negative) HPF Moderate Amorphous Urine Bacteria (Negative) HPF Few Urine Casts (Negative) LPF 0-2 Hyaline Urine Mucus (Negative) Trace Ur Culture Indicated? 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 Vanessa Bryan MD Surgical History Cystoscopy (01/05/18) [facility] Urology with R ureteral stent placement EGD w/Bx for H.Pylori (07/29/08) [facility] Family History Father , OD at age 42. Substance abuse Essential hypertension Mother Mental disorder Bipolar d/o Neoplasm small cell neuroendocrine carcinoma Sister Substance abuse Mental disorder Bipolar d/o Brother Substance abuse Mental disorder Bipolar d/o Brother Substance abuse Mental disorder Bipolar d/o Grandmother Neoplasm Breast CA Social History Smoking/Tobacco Use Status: Current every day Tobacco Type: cigarettes and e- cigarettes Tobacco: How many years used: 10 Quit status: has quit before Counseling given: provider counseling Smoking risk assessment performed?: Yes Alcohol Intake: former Details: Decided to quit drinking. Stopped 01/2019 Drug use: Occasionally Substance use type: marijuana Adopted: No Foster care: No Household members: significant other and children Number of Children: 2 current occupation: [employer] Pets and animals: Yes (1 dog) What type of physical activity do you participate in: regular exercise Duration: other Details: cleaning Frequency: daily Do you feel safe at home: Yes Do you feel safe in your relationship?: Yes Female Reproductive History Menstrual Duration of menses: 6-7 days control method: copper IUCD History History 2 Para 2 Hx # Term Pregnancies 2 Multiple births 0 Hx # Pregnancies 0 Ectopic pregnancies 0 AB induced 0 Hx Number of Living Children 2 AB spontaneous 0 Past Pregnancies Del. Date GA/Weeks # Preg Succ Route Wgt Sex Labor Lgth Anesth esia Location [facility] 11/20/16 40 vaginal 2920.001 g Female 9 hours regional 12/22/18 40 No vaginal 3685.438 g Female Sudhir Bauer,SAHARA Delivery Date: 11/20/16 Last Updated by: Vale Bauer Delivered at [facility] Have you Been Recently Intoxicated or Drunk Within the Last 30 days?: Yes Have you Ever Experienced Previous Episodes of Alcohol Withdrawal?: Yes Have you ever Experienced Withdrawal Seizures?: No Have you ever Experienced Delirium Tremens(DT)s?: No Have you ever undergone Alcohol Rehabilitation Treatment (i.e, inpt ot outpatient treatment programs)?: Yes Have you ever Experienced Blackouts?: No Have you ever Combined Alcohol with other Downers within the last 90 days?: No Have you ever Combined Alcohol with any other Substance of Abuse during the last 90 days?: No Evidence of Increased Autonomic Activity (i.e. HR>120, tremor, sweating, agitation, nausea)?: No Result: 3
[2023-10-22 18:12] LABS: Abs Immature Grans 0.02 10^3/uL (0.0-0.06); Absolute Basophil Count 0.05 10^3/uL (0.0-0.2); Absolute Eosinophil Count 0.11 10^3/uL (0.0-0.7); Absolute Lymphocyte Count 0.76 10^3/uL (1.2-3.4); Absolute Monocyte Count 0.56 10^3/uL (0.1-0.8); Absolute Neutrophil Count 6.73 10^3/uL (1.2-6.7); Basophils % 0.6; Eosinophils % 1.3; HCT 46.4 % (36.0-46.0); HGB 15.3 g/dL (11.2-15.7); Immature Grans % 0.2; Lymphocytes % 9.2; MCH 30.7 pg (27.0-33.0); MCV 93 fL (80-95); MPV 9.6 fL (8.0-11.0); Monocytes % 6.8; Neutrophils % 81.9; Platelet Count 263 10^3/uL (130-400); RBC 4.99 10^6/uL (3.93-5.22); RDW 13.5 % (11.7-14.6); RDW-SD 45.7 fL; WBC 8.23 10^3/uL (4.4-10.8)
[2023-10-22 18:13] LABS: Bilirubin Moderate (Negative); Blood Negative (Negative); Clarity Clear (Clear); Glucose Negative (Negative); Ketones 40 mg/dL (Negative); Leukocyte Esterase Negative (Negative); Nitrite Negative (Negative); pH 7.5 (5-8)
[2023-10-22] MEDS: Pantoprazole 40 MG VIAL IVP (18:19)
[2023-10-22] MEDS: Ondansetron 4 MG/2 ML VIAL IVP (18:19)
[2023-10-22] MEDS: Lactated Ringers 1,000 ML 1000 ML IV (18:20)
[2023-10-22 18:25] LABS: Bacteria Few HPF (Negative); C & S Indicated? No; Crystals Moderate Amorphous HPF (Negative); Epithelial Cells Rare HPF (Negative); RBC Negative HPF (0-2); WBC 0-2 HPF (0-5)
[2023-10-22 18:26] LABS: Mucus Trace (Negative)
[2023-10-22 18:27] LABS: Casts 0-2 Hyaline LPF (Negative)
[2023-10-22 18:28] LABS: ALT 181 U/L (14-59); AST 75 U/L (15-37); Albumin 4.1 g/dL (3.4-5.0); Alkaline Phosphatase 73 U/L (46-116); BUN 10 mg/dL (7-18); Bilirubin, Total 0.7 mg/dL (0.2-1.0); CREATININE 0.8 mg/dL (0.55-1.02); Calcium 9.6 mg/dL (8.5-10.1); Chloride 101 mmol/L (98-107); Estimated GFR 100.96 (mL/min/1.73m2); Glucose 101 mg/dL (74-106); Lipase 29 U/L (16-77); Magnesium 1.6 mg/dL (1.8-2.4); Potassium 3.8 mmol/L (3.5-5.1); Sodium 139 mmol/L (136-145); Troponin I < 50 ng/L (< or =60)
[2023-10-22] MEDS: LORazepam 0.5 MG TAB PO (19:07)
== END 2023-10-22 21:26 | disposition home or self-care (01) ==
PROVIDERS: Emergency Provider Physician Assistant; PCP Family Medicine
DX: F10.90 Alcohol use, unspecified, uncomplicated (principal); K29.70 Gastritis, unspecified, without bleeding; F17.210 Nicotine dependence, cigarettes, uncomplicated; F17.290 Nicotine dependence, other tobacco product, uncomplicated
CPT/HCPCS: 80053; 83690; 96361; 96374; 96375; 99284; 81003; 81015; 83735; 84484; 85025; J2405; J2470

== ENCOUNTER 2023-10-31 17:29 | Outpatient (REF) | payer BC, SELFPAY ==
[2023-11-03 10:44] LABS: Hepatitis C Ab w Rflx HCV PCR Negative (Negative)
[2023-11-03 10:47] LABS: HIV-1/2 Ag & Ab Screen Negative (Negative)
[2023-11-03 11:22] LABS: Syphilis Serology (RPR) Negative (Negative)
[2023-11-03 13:03] LABS: Chlamydia Result Negative (Negative); GC Result Negative (Negative)
== END 2023-10-31 17:30 | disposition home or self-care (01) ==
LOC: NCHCN 17:29
PROVIDERS: PCP Family Medicine; Visit Provider Student in an Organized Health Care Education/Training Program
DX: Z11.3 Encounter for screening for infections with a predominantly sexual mode of transmission (principal); Z11.4 Encounter for screening for human immunodeficiency virus [HIV]; Z11.59 Encounter for screening for other viral diseases
CPT/HCPCS: 86803; 87389; 87491; 87591; 86592

== ENCOUNTER 2023-12-01 10:59 | Outpatient (REF) | payer BC, SELFPAY ==
--- NOTE | 2023-12-01 10:25 | PAPFT_PTH ---
PATIENT: Malia Ledesma LOC: [facility] U#:[id number] AGE/SX: 33/F ROOM: RE12/01/[address]: Zeny Clemente MD : 1990 BED: DIS: 12/01/2023 SPEC #: [id number] RECD: 12/01/23 17:55 STATUS: SUSANNA REJimmie #: [id number] ANDREA: 12/01/23 10:[address]: Zeny Clemente DEPT: [facility] Cytology RECD BY: Camille Zuniga ENTERED: 12/01/23 17:56 SP TYPE: PAPFT OTHR DR: Magrarito Curry Tissues: 1 - CX/ENDOCX FOR PAP SMEARS Procedures: PAP THIN PREP/[facility] Screening Comments: [id number] (CHLAMYDIA/GC)
[2023-12-02 13:40] LABS: Chlamydia Result Negative (Negative); GC Result Negative (Negative)
== END 2023-12-01 11:00 | disposition home or self-care (01) ==
LOC: LBN 10:59
PROVIDERS: PCP Family Medicine; Visit Provider Obstetrics & Gynecology
DX: Z11.3 Encounter for screening for infections with a predominantly sexual mode of transmission (principal); Z12.4 Encounter for screening for malignant neoplasm of cervix
CPT/HCPCS: 87491; 87591; 88142

== ENCOUNTER 2023-12-01 17:26 | Outpatient (CLI) | payer BC, SELFPAY ==
[2023-12-01 20:16] LABS: HIV-1/2 Ag & Ab Screen Negative (Negative)
[2023-12-01 20:20] LABS: HBs Antibody, Qual Negative (See Note); HBs Antibody, Quant <3.1 mIU/mL (See Note); Hepatitis B Core Antibody Negative (Negative); Hepatitis B surface Ag Negative (Negative); Hepatitis C Ab w Rflx HCV PCR Negative (Negative)
[2023-12-02 10:23] LABS: Syphilis Serology (RPR) Negative (Negative)
== END 2023-12-01 17:27 | disposition home or self-care (01) ==
LOC: LBO 17:26
PROVIDERS: PCP Family Medicine; Visit Provider Obstetrics & Gynecology
DX: Z11.3 Encounter for screening for infections with a predominantly sexual mode of transmission (principal)
CPT/HCPCS: 36415; 86704; 86706; 86803; 87340; 87389; 86592

== ENCOUNTER 2023-12-30 15:58 | Outpatient (REF) | payer BC, SELFPAY ==
--- NOTE | 2023-12-30 15:20 | CER_PTH ---
PATIENT: Malia Ledesma LOC: N U#:[id number] AGE/SX: 33/F ROOM: RE12/30/[address]: Zeny Clemente MD : 1990 BED: DIS: 12/30/2023 SPEC #: [id number] RECD: 12/30/23 17:29 STATUS: SUSANNA REJimmie #: [id number] ANDREA: 12/30/23 15:[address]: Zeny Clemente DEPT: Surgical Specimen RECD BY: Camille Zuniga ENTERED: 12/30/23 17:30 SP TYPE: CER WOLF DR: Randolph Harvey Tissues: 1 - CERVICAL BIOPSY Procedures: GROSS AND MICRO LEVEL 4 Comments: [id number]
== END 2023-12-30 15:59 | disposition home or self-care (01) ==
LOC: LBN 15:58
PROVIDERS: PCP Student in an Organized Health Care Education/Training Program; Visit Provider Obstetrics & Gynecology
DX: N94.9 Unspecified condition associated with female genital organs and menstrual cycle (principal); B37.9 Candidiasis, unspecified
CPT/HCPCS: 88305; 87480; 87510; 87660

== ENCOUNTER 2024-01-28 08:16 | Inpatient (IN) | payer BC, SELFPAY ==
[2024-01-28] VITALS (34 sets, daily range): BP systolic 109–183; BP diastolic 64–126; PULSE 65–120; RESP 14–30; TEMP 36.9–37.1; O2SAT 92–100
--- NOTE | 2024-01-28 09:14 | NUR.NOTE ---
Nursing Note: pt found vaping in hallway, reminded that smoking and vaping in the building are not allowed.
[2024-01-28 09:17] LABS: Abs Immature Grans 0.03 10^3/uL (0.0-0.06); Absolute Basophil Count 0.09 10^3/uL (0.0-0.2); Absolute Eosinophil Count 0.12 10^3/uL (0.0-0.7); Absolute Lymphocyte Count 1.34 10^3/uL (1.2-3.4); Absolute Monocyte Count 0.67 10^3/uL (0.1-0.8); Absolute Neutrophil Count 6.84 10^3/uL (1.2-6.7); Eosinophils % 1.3 %; HCT 47.4 % (36.0-46.0); HGB 15.6 g/dL (11.2-15.7); Immature Grans % 0.3 %; Lymphocytes % 14.7 %; MCHC 32.9 % (32.0-36.0); MCV 94 fL (80-95); MPV 9.3 fL (8.0-11.0); Monocytes % 7.4 %; Neutrophils % 75.3 %; Platelet Count 288 10^3/uL (130-400); RBC 5.03 10^6/uL (3.93-5.22); RDW 13.2 % (11.7-14.6); RDW-SD 45.7 fL; WBC 9.09 10^3/uL (4.4-10.8)
[2024-01-28 09:19] LABS: *AMPHETAMINES SCREEN URINE Positive (Negative); *BARBITURATES SCREEN URINE Negative (Negative); *BENZODIAZEPINES SCREEN URINE Negative (Negative); Cannabinoids THC Negative (Negative); Cocaine Screen,Urine Negative (Negative); METHADONE URINE SCREEN Negative (Negative); OPIATES URINE SCREEN Negative (Negative)
[2024-01-28 09:21] LABS: Tricyclic Antidepressants Negative (Negative)
--- NOTE | 2024-01-28 09:23 | NUR.NOTE ---
Nursing Note: pt left the building to go outside to vape several times, was asked to stay inside and told that she needed to stay in the room. Pt indicates understanding.
[2024-01-28] MEDS: chlordiazePOXIDE 25 MG CAP 75 MG PO (09:35)
[2024-01-28 09:37] LABS: ALT 144 U/L (14-59); AST 94 U/L (15-37); Albumin 4.5 g/dL (3.4-5.0); Alkaline Phosphatase 77 U/L (46-116); Anion Gap 14.2 mmol/L (3-11); BUN 7 mg/dL (7-18); Bilirubin, Total 0.7 mg/dL (0.2-1.0); CO2 25.8 mmol/L (21.0-32.0); CREATININE 0.8 mg/dL (0.55-1.02); Calcium 9.2 mg/dL (8.5-10.1); Chloride 99 mmol/L (98-107); ETHANOL BLOOD 240.2 mg/dL (<10); Estimated GFR 100.96 (mL/min/1.73m2); Glucose 99 mg/dL (74-106); Sodium 139 mmol/L (136-145); Total Protein 8.4 g/dL (6.4-8.2)
[2024-01-28 09:40] LABS: Prothrombin Time 10.1 sec (9.1-11.1)
--- NOTE | 2024-01-28 10:19 | ED.GENADUL_ITS ---
Discharge Plan Disposition Patient Disposition: Admit to [facility] Condition: Serious Discharge Details Clinical Impression: Delirium tremens, Alcohol withdrawal Primary Care Provider: Randolph Harvey ED Provider: Scott Pham Home Meds and New Rx's Prescriptions: No Action sertraline [Zoloft] 100 mg tablet 50 mg PO HS lisdexamfetamine 30 mg capsule See Rx Instructions .ROUTE .COMPLEX Patient Comments: TAKE ONE CAPSULE BY MOUTH EVERY DAY Rx Instructions: Pt reports taking half dose some days HPI General Date/Time Provider Initiated Documentation: 01/28/24 08:22 . HPI Narrative: This is a 33-year-old female with a past medical history of HSV 1, ADHD, eczema, anxiety, depression, and current regular alcohol use who presents today for evaluation of withdrawal/detox. Patient states that ever since she was young and her boyfriend overdosed on heroin if she has had a problem with drinking. She has gone sober a few times in the past, the most recent being few months ago. She has had notable withdrawals in the past but is never had a seizure. She does personally describe being in DTs in the past. She additionally has a history of benzodiazepine use in the past. Patient states that over the last few months she has been drinking fairly excessively, she states that she goes through 20-25 beers per day easily. She denies any other drug use. She states that over the last day or 2 she has been notably stru ggling, and this morning she decided to get therapy/help. She denies any homicidal or suicidal ideations. She admits to feeling extremely stressed. She states that her last drink was right before she walked in. She denies any other complaints at this time. Related Data Home Medications Medication Instructions Recorded Confirmed sertraline 100 mg tablet (Zoloft) 50 mg PO HS 06/26/20 01/28/24 lisdexamfetamine 30 mg capsule See Rx Instructions .Route .COMPLEX 10/22/23 01/28/24 Allergies Allergy/AdvReac Type Severity Reaction Status Date / Time Penicillins AdvReac Intermediate Hives Verified 01/28/24 11:26 General Stated Complaint: ETOHWithdr LETITIA: 3 Review of Systems All systems reviewed & are unremarkable except as noted in HPI and below Exam Narrative Exam Narrative: 1.Const: Well-nourished, Well-developed, appearing stated age 2.Eyes: PERRL, no conjunctival injection, and symmetrical lids. 3.ENT: Atraumatic external nose and ears. Moist MM. Neck: Symmetric, trachea midline, No thyromegaly. 4.CVS: +S1/S2, No murmurs or gallops. Peripheral pulses 2+ and equal in all extremities. Brisk capillary refill in all extremities. 5.RESP: Unlabored respiratory effort. Clear to auscultation bilaterally. No wheezes rales or rhonchi 6.GI: Soft, Nontender/Nondistended, No hepatosplenomegaly. No guarding or rebound. 7.MSK: Normocephalic/Atraumatic, Extremities w/o deformity or ttp No cyanosis or clubbing, Normal movement of all extremities 8.Skin: Warm, Dry. No rashes or lesions. 9.Neuro: data designer II-XII grossly intact. Sensation grossly intact, no focal neurologic deficits. 10.Psych: (AAO) x3. Appropriate mood and affect Course Vital Signs Vital signs: Vital Signs Temperature 37.1 C 01/28/24 08:19 Pulse 110 H 01/28/24 08:19 Respiratory Rate 18 01/28/24 08:19 Blood Pressure 183/119 H 01/28/24 08:19 Pulse Oximetry 99 01/28/24 08:19 Temperature 37.1 C 01/28/24 08:19 Temperature Source Tympanic 01/28/24 08:19 Pulse 110 H 01/28/24 08:19 Respiratory Rate 18 01/28/24 08:19 Respiratory Effort Normal 01/28/24 08:29 Respiratory Pattern Normal 01/28/24 08:29 Blood Pressure 183/119 H 01/28/24 08:19 Blood Pressure Position Sitting 01/28/24 08:19 Pulse Oximetry 99 01/28/24 08:19 Oxygen Delivery Method Nasal Cannula 01/28/24 08:19 Pain Level 0 01/28/24 08:19 Lab/Test Results Lab/Test Results: Laboratory Tests Range/Units 01/28/24 01/28/24 01/28/24 08:55 09:10 09:20 WBC (4.4-10.8) 10^3/uL 9.09 RBC (3.93-5.22) 10^6/uL 5.03 Hgb (11.2-15.7) g/dL 15.6 Hct (36.0-46.0) % 47.4 H MCV (80-95) fL 94 MCH (27.0-33.0) pg 31.0 MCHC (32.0-36.0) % 32.9 RDW (11.7-14.6) % 13.2 Plt Count (130-400) 10^3/uL 288 MPV (8.0-11.0) fL 9.3 Immature Gran % % 0.3 Neutrophils % % 75.3 Lymphocytes % % 14.7 Monocytes % % 7.4 Eosinophils % % 1.3 Basophils % % 1.0 Nucleated RBC % (0.0-0.3) % 0.0 Absolute Neutrophils (1.2-6.7) 10^3/uL 6.84 H Absolute Lymphocytes (1.2-3.4) 10^3/uL 1.34 Absolute Monocytes (0.1-0.8) 10^3/uL 0.67 Absolute Eosinophils (0.0-0.7) 10^3/uL 0.12 Absolute Basophils (0.0-0.2) 10^3/uL 0.09 PT (9.1-11.1) sec 10.1 INR (0.9-1.1) 1.0 APTT (23.6-32.8) sec 25.0 Sodium (136-145) mmol/L 139 Potassium (3.5-5.1) mmol/L 4.0 Chloride (98-107) mmol/L 99 Carbon Dioxide (21.0-32.0) mmol/L 25.8 Anion Gap (3-11) mmol/L 14.2 H BUN (7-18) mg/dL 7 Creatinine (0.55-1.02) mg/dL 0.8 Est GFR (CKD-EPI 2020) (mL/min/1.73m2) 100.96 Glucose (74-106) mg/dL 99 Calcium (8.5-10.1) mg/dL 9.2 Total Bilirubin (0.2-1.0) mg/dL 0.7 AST (15-37) U/L 94 H ALT (14-59) U/L 144 H Alkaline Phosphatase (46-116) U/L 77 Total Protein (6.4-8.2) g/dL 8.4 H Albumin (3.4-5.0) g/dL 4.5 Urine Opiates Screen (Negative) Negative Urine Methadone Screen (Negative) Negative Ur Barbiturates Screen (Negative) Negative Ur Tricyclics Screen (Negative) Negative Ur Amphetamines Screen (Negative) Positive A U Benzodiazepines Scrn (Negative) Negative Urine Cocaine Screen (Negative) Negative Ur THC Screen (Negative) Negative Ethyl Alcohol (<10) mg/dL 240.2 H Medical Decision Making This is a 33-year-old female with a past medical history of HSV 1, ADHD, eczema, anxiety, depression, and current regular alcohol use who presents today for evaluation of withdrawal/detox. Patient states that ever since she was young and her boyfriend overdosed on heroin if she has had a problem with drinking. She has gone sober a few times in the past, the most recent being few months ago. She has had notable withdrawals in the past but is never had a seizure. She does personally describe being in DTs in the past. She additionally has a history of benzodiazepine use in the past. Patient states that over the last few months she has been drinking fairly excessively, she states that she goes through 20-25 beers per day easily. She denies any other drug use. She states that over the last day or 2 she has been notably struggling, and this morning she decided to get therapy/help. She denies any homicidal or suicidal ideations. She admits to feeling extremely stressed. She states that her last drink was right before she walked in. She denies any other complaints at this time. On initial exam patient appears well. She is calm and cooperative. She does appear slightly anxious and nervous, but she has no tremor. She is very concerned about being here, and the social implications of that. However in spite of this she actively wants help. She is quite hesitant about admission, and would prefer outpatient management. Additionally she has notable reservations about going to a detox center. Concern for potential high risk of DTs. Although she has not had seizures from the amount of alcohol she states that she drinks I do feel that the likelihood for potential negative adverse complication is high. In spite of this she is still very resistant to inpatient admission. We will get labs, check her alcohol level, give 75 mg of chlordiazepoxide, monitor closely and reassess. 11:02 AM Laboratory workup has returned, no white count electrolyte abnormality or change in bilirubin. Transaminases are mild to moderately elevated at 94 and 144 for AST and ALT respectively. Drug screen is only positive for amphetamines. Alcohol level is notably high at 240, which is quite concerning given the level of sobriety that the patient initially demonstrated on my initial assessment. After the patient had been here for about an hour and a half even being at an initial level of 240 for alcohol she began to demonstrate extreme anxiety, and symptoms of withdrawal. She began having tremulousness of her hands and felt very anxious about the situation and what was going on. I believe that this is just a very early onset of withdrawal. We will start chlordiazepoxide at the intermediate level. We will give 2 mg of Ativan additionally. I had a long discussion with the patient regarding admission versus discharge, and I made for outcome patient management. Patient understands this, but after a 30-minute conversation she has agreed and elected to participate in inpatient management for her withdrawals. I discussed the case with hospitalist Dr. Olmstead, he agrees with the assessment and plan. I will place admission orders on his behalf. I have extensively reviewed the treatment plan with the patient. I have addressed all patient concerns at this time. I have also discussed the plan with the admitting physician and they agree with the current assessment and plan and have agreed to assume responsibility for the patient. All parties demonstrate verbal understanding and agreement with our assessment and plan at this time. The documentation in this chart was dictated using Qvolve dictation software. Please excuse any dictation errors. Quality:SDOH Health Related Social Needs: No Data to Display PFSH All Active Problems (Updated 01/28/24 @ 11:05 by Scott Pham DO) Alcohol withdrawal (Acute) Delirium tremens (Acute) DVT prophylaxis (Acute) Alcoholic hepatitis (Acute) Alcohol use disorder, severe, dependence (Acute) Alcohol withdrawal syndrome (Acute) Panic (Acute) Herpes simplex type 1 infection (Acute 12/19/16) Eczema (Chronic) ADHD (attention deficit hyperactivity disorder), combined type (Chronic) Generalized anxiety disorder (Chronic) Depression (Acute) Medical History Presence of intrauterine contraceptive device (IUD) Paragard IUD placed 4/15/24 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 Vanessa Bryan MD History of calculus of kidney during (12/19/16) History of substance abuse (12/19/16) History of acute pyelonephritis Surgical History EGD w/Bx for H.Pylori (07/29/08) [facility] Cystoscopy (01/05/18) [facility] [place] with R ureteral stent placement Family History Father , OD at age 42. Substance abuse Essential hypertension Mother Mental disorder Bipolar d/o Neoplasm small cell neuroendocrine carcinoma Sister Substance abuse Mental disorder Bipolar d/o Brother Substance abuse Mental disorder Bipolar d/o Brother Substance abuse Mental disorder Bipolar d/o Grandmother Neoplasm Breast CA Social History Smoking/Tobacco Use Status: Current every day Tobacco Type: cigarettes and e- cigarettes Tobacco: How many years used: 10 Quit status: has quit before Counseling given: provider counseling Smoking risk assessment performed?: Yes Alcohol Intake: current Alcohol Intake frequency: 3 or more drinks per day Alcohol type: beer, wine and hard liquor Details: Decided to quit drinking. Stopped 01/2019 Drug use: Occasionally Substance use type: marijuana Adopted: No Foster care: No Household members: significant other and children Number of Children: 2 current occupation: [employer] Pets and animals: Yes (1 dog) What type of physical activity do you participate in: regular exercise Duration: other Details: cleaning Frequency: daily Do you feel safe at home: Yes Do you feel safe in your relationship?: Yes Female Reproductive History Menstrual Duration of menses: 6-7 days control method: copper IUCD History History 2 Para 2 Hx # Term Pregnancies 2 Multiple births 0 Hx # Pregnancies 0 Ectopic pregnancies 0 AB induced 0 Hx Number of Living Children 2 AB spontaneous 0 Past Pregnancies Del. Date GA/Weeks # Preg Succ Route Wgt Sex Labor Lgth Anesth esia Location [facility] 11/20/16 40 vaginal 2920.001 g Female 9 hours regional 12/22/18 40 No vaginal 3685.438 g Female Sudhirrasta Bauer CNM Delivery Date: 11/20/16 Last Updated by: Vale Bauer Delivered at [facility] Have you Been Recently Intoxicated or Drunk Within the Last 30 days?: Yes Have you Ever Experienced Previous Episodes of Alcohol Withdrawal?: Yes Have you ever Experienced Withdrawal Seizures?: Yes Have you ever Experienced Delirium Tremens(DT)s?: Yes Have you ever undergone Alcohol Rehabilitation Treatment (i.e, inpt ot out patient treatment programs)?: Yes Have you ever Experienced Blackouts?: Yes Have you ever Combined Alcohol with other Downers within the last 90 days?: Unable to Obtain Have you ever Combined Alcohol with any other Substance of Abuse during the last 90 days?: Unable to Obtain Positive Blood Alcohol level on Presentation? [PCS.BAL]: Yes Evidence of Increased Autonomic Activity (i.e. HR>120, tremor, sweating, agitation, nausea)?: No Result: 7
[2024-01-28] MEDS: LORazepam 2 MG/ML VIAL IVP (10:42)
--- NOTE | 2024-01-28 10:45 | W.PM.HP.N ---
Date of service: 01/28/24 Time of Service: 13:25 Assessment and Plan Assessment and plan (1) Alcohol withdrawal syndrome: Status: Acute Assessment and plan: She got some benzodiazepines in the ED, then phenobarbital protocol initiated. Dosing reviewed with pharmacy, IBW is 57kg, she was initially underdosed so will increase the 2 and 4 hour doses for total of 12mg/kg IBW She is experiencing anxiety and withdrawal symptoms now, asking for ativan, discussed how phenobarbital dose the same thing, has prn as well (2) Alcohol use disorder, severe, dependence: Status: Acute Assessment and plan: She has had multiple attempts at quitting, but is again motivated. 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 (3) ADHD (attention deficit hyperactivity disorder), combined type: Status: Chronic Assessment and plan: UDS c/w prescribed stimulant. Holding for now. (4) Generalized anxiety disorder: Status: Chronic Assessment and plan: continue sertaline. Adding gabapentin to help with this and as adjuvant for ETOH cravings. (5) Alcoholic hepatitis: Status: Acute Assessment and plan: Mild, follow. (6) DVT prophylaxis: Status: Acute Assessment and plan: Low risk, she is ambulatory, no pharmacology prophylaxis. History of Present Illness History of Present Illness Chief Complaint: anxiety, alcohol use Narrative: 33 yo F with history of alcohol use disorder with daily consumption, anxiety/PTSD, ADHD on stimulant therapy who presented to the emergency room this morning with increased anxiety, desire to stop drinking. She was sober for 6 weeks after previous medically assisted withdrawal done as outpatient. Was taking disulfuram but stopped taking it. Has been drinking heavily daily since. 25-30 drinks a day (typically white claw hard seltzer) from morning until night, last drink last night. 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 She feels shakey, some headache, severe anxiety. She has some nausea off/on and vomited yesterday, no blood or coffee grounds. She hasn't eaten in 3 days as she is just drinking, but she is hungry now. She has a history of inpatient rehabilitation. She has had multiple attempts at outpatient withdrawal using oral benzodiazepines followed by naltrexone and disulfuram but has relapsed to alcohol. She does not have a history of withdrawal seizures or overt delerium tremens. Review of Systems All systems reviewed & are unremarkable except as noted in HPI and below Constitutional Constitutional: Denies chills, Reports fatigue, Denies fever(s) and Reports headache(s) ENT Ears, Nose, Mouth, and Throat: Denies dysphagia and Reports headache(s) Cardiovascular Cardiovascular: Denies chest pain, Reports pedal edema, Denies palpitations and Denies dyspnea Respiratory Respiratory: Denies dyspnea Gastrointestinal Gastrointestinal: Denies melena, Denies hematochezia, Denies change in stool character, Denies dysphagia, Reports dyspepsia and Denies diarrhea Genitourinary Genitourinary: Denies abnormal vaginal bleeding, Denies dysuria, Denies pelvic pain, Reports urinary incontinence (while intoxicated) and Denies vaginal discharge Integumentary/Breasts Skin/Breast: Reports dry skin (has eczema) and Denies sores Neurologic Neurologic: Denies confusion, Reports headache(s) and Reports memory loss Psychiatric Psychiatric: Reports anxiety, Denies confusion, Reports depression, Reports difficulty concentrating (last took vyvanse yesterday), Reports memory loss, Denies visual hallucinations, Denies hallucinations and Denies tactile hallucinations Endocrine Endocrine: Reports fatigue and Denies palpitations PFSH All Active Problems Alcohol withdrawal (Acute) Delirium tremens (Acute) DVT prophylaxis (Acute) Alcoholic hepatitis (Acute) Alcohol use disorder, severe, dependence (Acute) Alcohol withdrawal syndrome (Acute) Panic (Acute) Herpes simplex type 1 infection (Acute 12/19/16) Eczema (Chronic) ADHD (attention deficit hyperactivity disorder), combined type (Chronic) Generalized anxiety disorder (Chronic) Depression (Acute) Medical History Presence of intrauterine contraceptive device (IUD) Paragard IUD placed 12/01/23 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 [place] Derm 05/24/19. Vanessa Bryan MD History of calculus of kidney during (12/19/16) History of substance abuse (12/19/16) History of acute pyelonephritis Surgical History EGD w/Bx for H.Pylori (07/29/08) [facility] Cystoscopy (01/05/18) [facility] [place] with R ureteral stent placement Family History Father , OD at age 42. Substance abuse Essential hypertension Mother Mental disorder Bipolar d/o Neoplasm small cell neuroendocrine carcinoma Sister Substance abuse Mental disorder Bipolar d/o Brother Substance abuse Mental disorder Bipolar d/o Brother Substance abuse Mental disorder Bipolar d/o Grandmother Neoplasm Breast CA Social History Smoking/Tobacco Use Status: Current every day Tobacco Type: cigarettes and e-cigarettes Tobacco: How many years used: 10 Quit status: has quit before Counseling given: provider counseling Smoking risk assessment performed?: Yes Alcohol Intake: current Alcohol Intake frequency: 3 or more drinks per day Alcohol type: beer, wine and hard liquor Details: Decided to quit drinking. Stopped 01/2019 Drug use: Occasionally Substance use type: marijuana Adopted: No Foster care: No Household members: significant other and children Housing: apartment Number of Children: 2 current occupation: [employer] Pets and animals: Yes (1 dog) What type of physical activity do you participate in: regular exercise Duration: other Details: cleaning Frequency: daily Do you feel safe at home: Yes Do you feel safe in your relationship?: Yes Female Reproductive History Menstrual Duration of menses: 6-7 days control method: copper IUCD History History 2 Para 2 Hx # Term Pregnancies 2 Multiple births 0 Hx # Pregnancies 0 Ectopic pregnancies 0 AB induced 0 Hx Number of Living Children 2 AB spontaneous 0 Past Pregnancies Del. Date GA/Weeks # Preg Succ Route Wgt Sex Labor Lgth Anesthesia Location Prov Complic 11/20/16 40 vaginal 2920.001 g Female 9 hours regional 12/22/18 40 No vaginal 3685.438 g Female Vale Bauer CNM Delivery Date: 11/20/16 Last Updated by: Vale Bauer Delivered at [facility] Allergies and Home Medications Allergies Allergy/AdvReac Type Severity Reaction Status Date / Time Penicillins AdvReac Intermediate Hives Verified 01/28/24 11:26 Home Medications Medication Instructions Recorded Confirmed Type sertraline 100 mg tablet (Zoloft) 50 mg PO HS 06/26/20 01/28/24 History lisdexamfetamine 30 mg capsule See Rx Instructions .Route .COMPLEX 10/22/23 01/28/24 History Exam Narrative Exam Narrative: GEN: Alert and oriented, pleasant and cooperative, gives linear history. Anxious but no acute distress at rest. HEENT: Head atraumatic. Conjunctiva clear, no icterus. PEERL, EOMI. no rhinorrhea. MMM, OP benign. Neck is supple with no masses or lymphadenopathy, trachea midline LUNGS: CTAB with normal effort CV: RRR with no murmurs, gallops, or rubs. ABD: +BS, soft, NT/ND EXT: no cyanosis, clubbing. Trace nikko edema in feet. MSK: No joint redness or swelling NEURO: CN 2-12 grossly intact. Normal movement of 4 extremities. Normal speech and coordination. No tremor currently at rest SKIN: Slightly flushed, no rashes or open wounds, no large bruises or angiomata. Skin on back dry but no rash. PSYCH: anxious mood and affect, normal thought process. Results Labs 01/28/24 09:10 01/28/24 09:10 Labs: Laboratory Results - last 24 hr 01/28/24 01/28/24 01/28/24 08:55 09:10 09:20 WBC 9.09 RBC 5.03 Hgb 15.6 Hct 47.4 H MCV 94 MCH 31.0 MCHC 32.9 RDW 13.2 Plt Count 288 MPV 9.3 Immature Gran % 0.3 Neutrophils % 75.3 Lymphocytes % 14.7 Monocytes % 7.4 Eosinophils % 1.3 Basophils % 1.0 Nucleated RBC % 0.0 Absolute Neutrophils 6.84 H Absolute Lymphocytes 1.34 Absolute Monocytes 0.67 Absolute Eosinophils 0.12 Absolute Basophils 0.09 PT 10.1 INR 1.0 APTT 25.0 Sodium 139 Potassium 4.0 Chloride 99 Carbon Dioxide 25.8 Anion Gap 14.2 H BUN 7 Creatinine 0.8 Est GFR (CKD-EPI 2020) 100.96 Glucose 99 Calcium 9.2 Total Bilirubin 0.7 AST 94 H ALT 144 H Alkaline Phosphatase 77 Total Protein 8.4 H Albumin 4.5 Urine Opiates Screen Negative Urine Methadone Screen Negative Ur Barbiturates Screen Negative Ur Tricyclics Screen Negative Ur Amphetamines Screen Positive A U Benzodiazepines Scrn Negative Urine Cocaine Screen Negative Ur THC Screen Negative Ethyl Alcohol 240.2 H Last Vital Signs Temp 36.9 C 01/28/24 10:33 Pulse 98 H 01/28/24 10:33 Resp 18 01/28/24 10:33 BP 167/111 H 01/28/24 10:33 Pulse Ox 100 01/28/24 10:33 PAWSS Have you Been Recently Intoxicated or Drunk Within the Last 30 days?: Yes Have you Ever Experienced Previous Episodes of Alcohol Withdrawal?: Yes Have you ever Experienced Withdrawal Seizures?: Yes Have you ever Experienced Delirium Tremens(DT)s?: Yes Have you ever undergone Alcohol Rehabilitation Treatment (i.e, inpt ot outpatient treatment programs)?: Yes Have you ever Experienced Blackouts?: Yes Have you ever Combined Alcohol with other Downers within the last 90 days?: Unable to Obtain Have you ever Combined Alcohol with any other Substance of Abuse during the last 90 days?: Unable to Obtain Positive Blood Alcohol level on Presentation? [PCS.BAL]: Yes Evidence of Increased Autonomic Activity (i.e. HR>120, tremor, sweating, agitation, nausea)?: No Result: 7 Time Spent Time spent with Patient: 55-74 minutes Time was spent: preparing to see the patient(eg.review tests), obtaining and/or reviewing separately otained hiistory, ordering medications,tests, procedures, referring, communicating with other health care coordination manager, indepentently interpreting results, counseling the patient and care coordination
--- NOTE | 2024-01-28 11:37 | W.PCEDHO ---
Registration Status: REG ER Primary Language: Preferred Language: Romanian ED Information & Data Chief Complaint ETOHWithdr 01/28/24 10:22 Triage Note Here for detox from ETOH, 01/28/24 08:19 last drink this morning (4 beers). For the past week or so has been consuming over 20 beers. Medical / Surgical History (Last Reviewed 01/28/24 @ 11:01 by Scott Pham DO) Presence of intrauterine contraceptive device (IUD) History of cervical dysplasia Neoplasm of uncertain behavior, unspecified History of calculus of kidney during (12/19/16) History of substance abuse (12/19/16) History of acute pyelonephritis (Last Reviewed 01/28/24 @ 11:01 by Scott Pham DO) EGD w/Bx for H.Pylori (07/29/08) Cystoscopy (01/05/18) Most Recent Vital Signs Temperature 36.9 C 01/28/24 10:33 Temperature Source Skin 01/28/24 10:33 Pulse 98 H 01/28/24 10:33 Respiratory Rate 18 01/28/24 10:33 Respiratory Effort Normal 01/28/24 08:29 Respiratory Pattern Normal 01/28/24 11:03 Blood Pressure 167/111 H 01/28/24 10:33 Blood Pressure Position Sitting 01/28/24 08:19 Pulse Oximetry 100 01/28/24 10:33 Oxygen Delivery Method Room Air 01/28/24 10:33 Oxygen Flow Rate 0 01/28/24 10:33 Pain Level 0 01/28/24 08:19 Allergies Penicillins Adverse Reaction (Intermediate, Verified 01/28/24 11:26) Hives Precautions Isolation Standard precaution 01/28/24 08:29 IV IV Catheter Type [Right Saline Lock Antecubital] IV Catheter Gauge [Right 20 Antecubital] Diet Orders Category Date Time Status Regular/Normal [DIET] Nutrition 01/28/24 Lunch Active Diagnostics 01/28/24 01/28/24 01/28/24 Range/Units 09:20 09:10 08:55 WBC 9.09 (4.4-10.8) 10^3/uL RBC 5.03 (3.93-5.22) 10^6/uL Hgb 15.6 (11.2-15.7) g/dL Hct 47.4 H (36.0-46.0) % MCV 94 (80-95) fL MCH 31.0 (27.0-33.0) pg MCHC 32.9 (32.0-36.0) % RDW 13.2 (11.7-14.6) % Plt Count 288 (130-400) 10^3/uL MPV 9.3 (8.0-11.0) fL Immature Gran % 0.3 % Neutrophils % 75.3 % Lymphocytes % 14.7 % Monocytes % 7.4 % Eosinophils % 1.3 % Basophils % 1.0 % Nucleated RBC % 0.0 (0.0-0.3) % Absolute Neutrophils 6.84 H (1.2-6.7) 10^3/uL Absolute Lymphocytes 1.34 (1.2-3.4) 10^3/uL Absolute Monocytes 0.67 (0.1-0.8) 10^3/uL Absolute Eosinophils 0.12 (0.0-0.7) 10^3/uL Absolute Basophils 0.09 (0.0-0.2) 10^3/uL PT 10.1 (9.1-11.1) sec INR 1.0 (0.9-1.1) APTT 25.0 (23.6-32.8) sec Sodium 139 (136-145) mmol/L Potassium 4.0 (3.5-5.1) mmol/L Chloride 99 (98-107) mmol/L Carbon Dioxide 25.8 (21.0-32.0) mmol/L Anion Gap 14.2 H (3-11) mmol/L BUN 7 (7-18) mg/dL Creatinine 0.8 (0.55-1.02) mg/dL Est GFR (CKD-EPI 2020) 100.96 (mL/min/1.73m2) Glucose 99 (74-106) mg/dL Calcium 9.2 (8.5-10.1) mg/dL Total Bilirubin 0.7 (0.2-1.0) mg/dL AST 94 H (15-37) U/L ALT 144 H (14-59) U/L Alkaline Phosphatase 77 (46-116) U/L Total Protein 8.4 H (6.4-8.2) g/dL Albumin 4.5 (3.4-5.0) g/dL Urine Opiates Screen Negative (Negative) Urine Methadone Screen Negative (Negative) Ur Barbiturates Screen Negative (Negative) Ur Tricyclics Screen Negative (Negative) Ur Amphetamines Screen Positive A (Negative) U Benzodiazepines Scrn Negative (Negative) Urine Cocaine Screen Negative (Negative) Ur THC Screen Negative (Negative) Ethyl Alcohol 240.2 H (<10) mg/dL Intake and Output - 24 Hour Total 01/28/24 08:16 thru 01/28/24 08:19 Weight 82.024 kg Falls Risk Assessment History of Falls No History 01/28/24 08:29 Contributing Factors No Factors 01/28/24 08:29 Ambulatory Aids Independent 01/28/24 08:29 Tubes/Lines None 01/28/24 08:29 Gait Evaluation No gait disturbance 01/28/24 08:29 Cognition No cognitive impairment 01/28/24 08:29 Fall Total Score 0 01/28/24 08:29 Level of Risk Standard/Low Risk 01/28/24 08:29 Problems (Last Reviewed 01/28/24 @ 11:01 by Scott Pham DO) Alcohol withdrawal (Acute) Delirium tremens (Acute) DVT prophylaxis (Acute) Alcoholic hepatitis (Acute) Alcohol use disorder, severe, dependence (Acute) Alcohol withdrawal syndrome (Acute) ADHD (attention deficit hyperactivity disorder), combined type (Chronic) Generalized anxiety disorder (Chronic) Notes 01/28/24 09:23 Nursing Notes by Malia Alcantara Nursing Note: pt left the building to go outside to vape several times, was asked to stay inside and told that she needed to stay in the room. Pt indicates understanding. Initialized on 01/28/24 09:23 - END OF NOTE 01/28/24 09:14 Nursing Notes by Malia Alcantara Nursing Note: pt found vaping in hallway, reminded that smoking and vaping in the building are not allowed. Initialized on 01/28/24 09:14 - END OF NOTE v v v v v v v v v Sending and/or Receiving Nurses: Please use comment section below to note any information pertinent to the patient hand-off not included above. Information / Comments: Report received from:Ced Prado RN All questions answered
[2024-01-28] MEDS: MAGNESIUM SULFATE 8.12 MEQ, MULTIVITAMIN 10 ML, THIAMINE 100 MG, FOLIC ACID 1 MG in Nor... 168.867 MG IV (11:45)
[2024-01-28] MEDS: diazePAM 10 MG/2 ML SYR 5 MG IVP (12:23)
[2024-01-28] MEDS: PHENobarbital 130 MG/ML VIAL 100 MG IM (13:25)
[2024-01-28] MEDS: Gabapentin 300 MG CAP PO ×2 (14:49→19:32)
[2024-01-28] MEDS: Pantoprazole 40 MG TABCR PO (14:49)
[2024-01-28] MEDS: Ondansetron 4 MG/2 ML VIAL IVP (17:10)
[2024-01-28] MEDS: Normal Saline Flush 10 ML SYR IVP ×3 (18:23→20:11)
[2024-01-28] MEDS: PHENobarbital 130 MG/ML VIAL IVP ×3 (18:23→20:10)
[2024-01-28] MEDS: Sertraline 50 MG TAB PO (19:32)
[2024-01-28] MEDS: Nicotine 2 MG GUM CH (20:06)
[2024-01-28] MEDS: dexmedeTOMidine IN 0.9 % NACL 400 MCG/100 ML BTL 8.44 MCG IV (21:42)
[2024-01-29] VITALS (28 sets, daily range): BP systolic 89–127; BP diastolic 59–85; PULSE 48–103; RESP 12–20; TEMP 37.2–38; O2SAT 91–98
[2024-01-29] MEDS: Pantoprazole 40 MG TABCR PO (08:30)
[2024-01-29] MEDS: Gabapentin 300 MG CAP PO ×3 (08:30→20:08)
[2024-01-29] MEDS: Folic Acid 1 MG TAB PO (08:30)
[2024-01-29] MEDS: Thiamine 100 MG TAB PO (08:30)
[2024-01-29] MEDS: Multivitamin TAB 1 TAB PO (08:30)
[2024-01-29 10:20] LABS: ALT 104 U/L (14-59); AST 56 U/L (15-37); Albumin 3.4 g/dL (3.4-5.0); Alkaline Phosphatase 66 U/L (46-116); Anion Gap 7.1 mmol/L (3-11); BUN 12 mg/dL (7-18); CO2 29.9 mmol/L (21.0-32.0); CREATININE 0.9 mg/dL (0.55-1.02); Chloride 101 mmol/L (98-107); Estimated GFR 87.65 (mL/min/1.73m2); Glucose 103 mg/dL (74-106); Magnesium 1.6 mg/dL (1.8-2.4); PHENOBARBITAL 21.4 ug/mL (15.0-40.0); Sodium 138 mmol/L (136-145); Total Protein 6.5 g/dL (6.4-8.2)
--- NOTE | 2024-01-29 10:39 | W.PM.PROGNOT ---
Date of Service Date of service: 01/29/24 Time of Service: 10:39 Assessment and Plan Assessment and plan (1) Alcohol withdrawal syndrome: Status: Acute Assessment and plan: Patient has reached her limit on phenobarbital, yet still exhibiting panic/anxiety which I think is the bigger component than alcohol withdrawal. I will give her one time iv valium then put her on low dose scheduled valium oral 2 mg tid while titrating her sertraline and add mirtazpine at night. (2) Alcohol use disorder, severe, dependence: Status: Acute Assessment and plan: per Dr. Curry, she has had multiple attempts at quitting but w/ rescidivism, consider putting her on acamposate and offer personal development coach once she has completed treatment for withdrawal (3) ADHD (attention deficit hyperactivity disorder), combined type: Status: Chronic Assessment and plan: UDS c/w prescribed stimulant. Holding for now. (4) Generalized anxiety disorder: Status: Chronic Assessment and plan: continue sertaline. Adding gabapentin to help with this and as adjuvant for ETOH cravings. mirtazepine at night (5) Alcoholic hepatitis: Status: Acute Assessment and plan: Mild, follow. (6) DVT prophylaxis: Status: Acute Assessment and plan: Low risk, she is ambulatory, no pharmacology prophylaxis. Subjective Subjective Interval history since last seen: Malia has reached her calculated limit on total phenobarbital, she is now at 1270 mg, calculated dose of 20 mg/kg based on IBW of 57.5 kg is 1160 mg/kg. The patient was scoring 0 on her CIWA this morning but had been on Precedex drip overnight which has been stopped d/t excessive sedation. She has hx of anxiety and panic attacks and has been on sertraline. She is suppose to be on 100 mg daily but is only on 50 mg. She says that when they tried to go to higher doses her jaw locked up. Benzodiazepines does seem to calm her down. I will put her on programmed doses of valium but we will need to give cautiously d/t recent loading w/ phenobarbital. I will also adjust her dose of sertraline slightly to 75 mg. Exam Narrative Exam Narrative: Young white female who is tearful, unable to be consoled, asking her nurse to not leave her. She tells me that she has been on valium before and has had a high tolerance to medications. She says that the phenobarbital has not done anything to calm her down. She does not want the precedex as this just made her sleep. She is tremulous, tearful Lungs: clear Heart: regular, slight tachycardic, sinus skin is not diaphoretic Objective Last Vital Signs Temp 36.9 C 01/28/24 19:51 Pulse 58 L 01/29/24 04:41 Resp 18 01/29/24 04:41 BP 118/85 01/29/24 04:41 Pulse Ox 95 01/29/24 04:41 PAWSS Have you Been Recently Intoxicated or Drunk Within the Last 30 days?: Yes Have you Ever Experienced Previous Episodes of Alcohol Withdrawal?: Yes Have you ever Experienced Withdrawal Seizures?: No Have you ever Experienced Delirium Tremens(DT)s?: Yes Have you ever undergone Alcohol Rehabilitation Treatment (i.e, inpt ot outpatient treatment programs)?: Yes Have you ever Experienced Blackouts?: Yes Have you ever Combined Alcohol with other Downers within the last 90 days?: Unable to Obtain Have you ever Combined Alcohol with any other Substance of Abuse during the last 90 days?: Unable to Obtain Positive Blood Alcohol level on Presentation? [PCS.BAL]: Yes Evidence of Increased Autonomic Activity (i.e. HR>120, tremor, sweating, agitation, nausea)?: Yes Result: 7 Time Spent with Patient Time Spent with Patient: 35-49 minutes Time was spent: preparing to see the patient(eg.review tests), ordering medications,tests, procedures, referring, communicating with other health palliative care nurse, indepentently interpreting results, counseling the patient and care coordination
[2024-01-29 10:55] LABS: Bilirubin, Direct 0.3 mg/dL (0.0-0.2); PHOSPHORUS 3.4 mg/dL (2.6-4.7)
[2024-01-29 10:58] LABS: HCT 40.2 % (36.0-46.0); HGB 12.7 g/dL (11.2-15.7); MCH 30.9 pg (27.0-33.0); MCHC 31.6 % (32.0-36.0); MCV 98 fL (80-95); RBC 4.11 10^6/uL (3.93-5.22); RDW 13.2 % (11.7-14.6); RDW-SD 47.2 fL; WBC 7.86 10^3/uL (4.4-10.8)
[2024-01-29 10:59] LABS: Abs Immature Grans 0.03 10^3/uL (0.0-0.06); Absolute Basophil Count 0.06 10^3/uL (0.0-0.2); Absolute Eosinophil Count 0.21 10^3/uL (0.0-0.7); Absolute Lymphocyte Count 1.37 10^3/uL (1.2-3.4); Absolute Monocyte Count 0.47 10^3/uL (0.1-0.8); Absolute Neutrophil Count 5.72 10^3/uL (1.2-6.7); Basophils % 0.8 %; Eosinophils % 2.7 %; Immature Grans % 0.4 %; Lymphocytes % 17.4 %; Neutrophils % 72.7 %; Platelet Count 222 10^3/uL (130-400)
[2024-01-29] MEDS: diazePAM 10 MG/2 ML SYR 5 MG IVP (10:59)
[2024-01-29] MEDS: Normal Saline Flush 10 ML SYR IVP ×2 (11:22→20:09)
[2024-01-29] MEDS: MAGNESIUM SULFATE 2 GM/50 ML BAG IVINF (11:43)
--- NOTE | 2024-01-29 11:49 | PDOC.CMIN ---
Date of service: 01/29/24 Time of Service: 11:49 Care Management Initial Assmt Initial Assessment Reason for Hospitalization: alcohol withdrawal Functional Status/Living Situation Patient Presentation: Malia was sitting up in bed when CM met with her. She was cooperative but appeared quite anxious. Malia described herself as a functioning alcoholic. She stated that she was raised in a family where drinking alcohol was common for adolescents as young as 15 and 16. She described large family gatherings in [place] where alcohol was served to the teenagers routinely. She was also given medication by her mother. When asked if she wanted to stop drinking, Malia stated that she does not want to stop drinking, but she wants help. She was unable to identify exactly what she wanted help with, except to say she wanted a real alcohol and drug counselor. CM contacted [facility] Mychal an a Cosmetic Sales Consultant came to meet with her. 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.) Medications Medication Management: No Issues/Barriers identified Advance Directives Advance Directives: Do you have an Advance Directive: N 01/28/22 14:18 AD On File at [facility]: N 01/28/22 14:18 Date Asked 01/28/24 01/28/24 08:24 AD Date Reviewed COLST On File at [facility] COLST Date Scanned Code Status Resuscitation Status Full Code Portal Pt does not currently have a portal and education provided: Yes Insurance Coverage/Financial Issues Insurance: /[facility] Financial Assist 100 ACO Member: No Care Team Visit Care Team Role Provider Type Randolph Harvey Primary Care Provider NON-[facility] STAFF PHYSICIAN Scott Pham DO Emergency Provider [facility] STAFF PHYSICIAN Margarito Curry Admit Provider [facility] STAFF PHYSICIAN Attending Provider Discharge Potential Discharge Needs: PCP F/U Appt and Other (treatment for AUD) Anticipated Barriers to Discharge: None Identified Patient/Family Education Needs: Review discharge instructions, discuss Ask Me Three Transportation: Private vehicle Plan: Anticipate Malia will be discharged home with no new services. Hopefully she will follow up with her Cosmetic Sales Consultant and/or find a counselor who can help with her AUD. Malia will follow up with her PCP and plan of care and transport via private vehicle. PFSH All Active Problems Alcohol withdrawal (Acute) Delirium tremens (Acute) DVT prophylaxis (Acute) Alcoholic hepatitis (Acute) Alcohol use disorder, severe, dependence (Acute) Alcohol withdrawal syndrome (Acute) Panic (Acute) Herpes simplex type 1 infection (Acute 12/19/16) Eczema (Chronic) ADHD (attention deficit hyperactivity disorder), combined type (Chronic) Generalized anxiety disorder (Chronic) Depression (Acute) Medical History Presence of intrauterine contraceptive device (IUD) Paragard IUD placed 12/01/23 History of cervical dysplasia December 2022: LSIL/HPV+ -->[place]: pending January 2022: colp --> CIN1 October 2021: LSIL/No HPV October 2020: Normal pap/No HPV Apr 2019: Normal pap/Neg HPV Apr 2018: ASCUS/HPV+ Neoplasm of uncertain behavior, unspecified new pt visit at [facility] Derm 05/24/19. Vanessa Bryan MD History of calculus of kidney during (12/19/16) History of substance abuse (12/19/16) History of acute pyelonephritis Surgical History EGD w/Bx for H.Pylori (07/29/08) [facility] Cystoscopy (01/05/18) [facility] [place] with R ureteral stent placement Family History Father , OD at age 42. Substance abuse Essential hypertension Mother Mental disorder Bipolar d/o Neoplasm small cell neuroendocrine carcinoma Sister Substance abuse Mental disorder Bipolar d/o Brother Substance abuse Mental disorder Bipolar d/o Brother Substance abuse Mental disorder Bipolar d/o Grandmother Neoplasm Breast CA Social History Smoking/Tobacco Use Status: Current every day Tobacco Type: cigarettes and e-cigarettes Tobacco: How many years used: 10 Quit status: has quit before Counseling given: provider counseling Smoking risk assessment performed?: Yes Alcohol Intake: current Alcohol Intake frequency: 3 or more drinks per day Alcohol type: beer, wine and hard liquor Details: Decided to quit drinking. Stopped 01/2019 Drug use: Occasionally Substance use type: marijuana Adopted: No Foster care: No Household members: significant other and children Housing: apartment Number of Children: 2 current occupation: [employer] Pets and animals: Yes (1 dog) What type of physical activity do you participate in: regular exercise Duration: other Details: cleaning Frequency: daily Do you feel safe at home: Yes Do you feel safe in your relationship?: Yes Female Reproductive History Menstrual Duration of menses: 6-7 days control method: copper IUCD History History 2 Para 2 Hx # Term Pregnancies 2 Multiple births 0 Hx # Pregnancies 0 Ectopic pregnancies 0 AB induced 0 Hx Number of Living Children 2 AB spontaneous 0 Past Pregnancies Del. Date GA/Weeks # Preg Succ Route Wgt Sex Labor Lgth Anesthesia Location Prov [facility] 11/20/16 40 vaginal 2920.001 g Female 9 hours regional 12/22/18 40 No vaginal 3685.438 g Female Vale Bauer CNM Delivery Date: 11/20/16 Last Updated by: Vale Bauer Delivered at [facility](Care Management) Screening Will the Patient Participate in the Screening?: Yes Do you worry about having a steady place to live?: no In the past 12 months, have you had to go without electric, gas, oil or water in your home?: no Have you or anyone in your house had to go without enough food to eat?: no Has lack of transportation kept you from medical appointments or from doing things needed for daily living?: no Has anyone in your support network made you feel unsafe for any reason?: no
[2024-01-29] MEDS: diazePAM 2 MG TAB PO (14:13)
--- NOTE | 2024-01-29 14:19 | W.NUTRFU ---
Date of service: 01/29/24 Time of Service: 13:30 Nutrition Note NOTE: Pt admitted for alcohol w/drawal. Received banana bag for repletion and ordered for 7 days of MVI, Thiamine, and folate for support. Pt documented at ~20pound wt loss from last year - pt confirms that this was due to stress eating (or not eating) and suspect also from her relationship with alcohol. Encouraged MVI/Bcomplex after discharge to support her needs and offered card for her to contact me for outpatient nutrition help if desiring healthy wt loss. Will monitor her po intake and nutrition status remainder of admission. No aggressive nutrition intervention planned at this time. Time Spent in Nutritional Counseling and Treatment: 10 minutes
--- NOTE | 2024-01-29 14:24 | PHA.REVIEW2 ---
Pharmacy Admission Review Admission Clinical Review Admission Pharmacy Review: Alcohol withdrawal (Acute) Delirium tremens (Acute) DVT prophylaxis (Acute) Alcoholic hepatitis (Acute) Alcohol use disorder, severe, dependence (Acute) Alcohol withdrawal syndrome (Acute) Penicillins Adverse Reaction (Intermediate, Verified 01/28/24 11:26) Hives Resuscitation Status Full Code Height 5 ft 5 in Weight 84.4 kg Pharmacy Admission Review Renal Dosing Renal Dosing: BUN 12 mg/dL (7-18) 01/29/24 05:55 Creatinine 0.9 mg/dL (0.55-1.02) 01/29/24 05:55 Medications needing adjustments: Reviewed (CrCl 97.16 mL/min) List of meds needing interventions: Current medications are okay Anticoagulation Anticoagulation: Hgb 12.7 g/dL (11.2-15.7) D 01/29/24 05:55 Hct 40.2 % (36.0-46.0) 01/29/24 05:55 Plt Count 222 10^3/uL (130-400) 01/29/24 05:55 INR 1.0 (0.9-1.1) 01/28/24 09:20 Creatinine 0.9 mg/dL (0.55-1.02) 01/29/24 05:55 DVT Prophylaxis: Reviewed (Low risk per progress note - none needed) Relevant Labs Relevant Labs: Sodium 138 mmol/L (136-145) 01/29/24 05:55 Potassium 4.0 mmol/L (3.5-5.1) 01/29/24 05:55 Chloride 101 mmol/L (98-107) 01/29/24 05:55 Phosphorus 3.4 mg/dL (2.6-4.7) 01/29/24 05:55 Magnesium 1.6 mg/dL (1.8-2.4) L 01/29/24 05:55 Electrolytes, C-Reactive P, ESR: Reviewed (CIWA score 10 at 1100, Mg 1.6, Hgb decreased from 15.6 to 12.7, AST/ALT decreased from 94/144 to 56/104) DM Control DM Control: Glucose 103 mg/dL (74-106) 01/29/24 05:55 DM Control: Reviewed (No actual diagnosis listed in patients chart) Insulin Dosing, Diabetic Medication: Has order for SS insulin Cardiac Review BP, HR, EF%: Reviewed (HR and BP WNL, Ox 91) QTc Review QTc: Reviewed (No EKG on file) IV to PO Switch IV Medications: Reviewed (Precedex, ondansetron and phenobarbital) Home Meds Home Med List reviewed: Reviewed Relevent Home Meds Not ordered & why?: Vyvanse (on hold per H+P) Current Meds Current Medication Order Review: Intervened Comments: Reached out to provider as patient had reached the hard stop limit for phenobarbital. Provider ordered phenobarb level - 21.4 ug/mL this morning at 0555. Last CIWA score was 10 at 1100 today. Diazepam added for anxiety/panic attacks that may be contributing to withdrawal symptoms Hard stop: 1140mg last dose given 01/28/24 at 2009 Total amount given 1180mg Discontinued Precedex infusion - stopped as of this morning
[2024-01-29] MEDS: LORazepam 2 MG/ML VIAL 1 MG IVP (16:09)
--- NOTE | 2024-01-29 17:28 | CHAPLAIN ---
Malia was sitting up in bed when I visited. She was admitted after coming to the ED last night and has been going through alcohol withdrawals. She told me about her two daughters, 5 and 7. They visited today and saw some blood on the floor she said and were scared by that. She said it was a rough visit and that she was very anxious after that. She appeared calm while we were talking. Malia said one of her daughters graduated from daycare today and she is disappointed that she couldn't be there and that has caused anxiety for her too. She asked if we could pray together and we did. According to her ED notes, she told ED staff that she can drink up to 20 to 25 drinks (listed as beer and [place] hard seltzers) a day. She has been working through this. She has also gone through periods of sobriety in the past. I will check back tomorrow.
[2024-01-29] MEDS: Docusate Sodium 100 MG CAP PO (18:09)
[2024-01-29] MEDS: Polyethylene Glycol 3350 17 GM PACKET PO (19:04)
[2024-01-29] MEDS: clonazePAM 0.5 MG TAB 0.25 MG PO (20:07)
[2024-01-29] MEDS: Sertraline 50 MG TAB 75 MG PO (20:08)
[2024-01-29] MEDS: Mirtazapine 15 MG TAB PO (20:08)
[2024-01-30] VITALS (20 sets, daily range): BP systolic 130–138; BP diastolic 85–91; PULSE 57–91; RESP 11–24; TEMP 37.1–37.6; O2SAT 95–100
[2024-01-30] MEDS: clonazePAM 0.5 MG TAB 0.25 MG PO ×2 (05:56→08:58)
[2024-01-30] MEDS: Bisacodyl 10 MG SUPP PR (05:57)
[2024-01-30] MEDS: Ondansetron 4 MG/2 ML VIAL IVP (05:57)
[2024-01-30] MEDS: Pantoprazole 40 MG TABCR PO (07:20)
[2024-01-30] MEDS: Multivitamin TAB 1 TAB PO (07:27)
[2024-01-30] MEDS: Thiamine 100 MG TAB PO (07:27)
[2024-01-30] MEDS: Normal Saline Flush 10 ML SYR IVP ×4 (07:27→20:16)
[2024-01-30] MEDS: Folic Acid 1 MG TAB PO (07:27)
[2024-01-30] MEDS: Gabapentin 300 MG CAP PO (07:27)
[2024-01-30] MEDS: LORazepam 2 MG/ML VIAL IVP ×6 (07:45→21:10)
[2024-01-30 07:47] LABS: ALT 80 U/L (14-59); AST 39 U/L (15-37); Alkaline Phosphatase 72 U/L (46-116); Anion Gap 8.3 mmol/L (3-11); BUN 17 mg/dL (7-18); Bilirubin, Total 0.4 mg/dL (0.2-1.0); CO2 26.7 mmol/L (21.0-32.0); CREATININE 0.8 mg/dL (0.55-1.02); Calcium 8.3 mg/dL (8.5-10.1); Chloride 108 mmol/L (98-107); Estimated GFR 100.96 (mL/min/1.73m2); Glucose 79 mg/dL (74-106); Potassium 4.2 mmol/L (3.5-5.1); Sodium 143 mmol/L (136-145); Total Protein 5.9 g/dL (6.4-8.2)
--- NOTE | 2024-01-30 08:08 | CMPROGNOTE_ITS ---
Date of service: 01/30/24 Time of Service: 08:08 Care Management Progress Note Progress Note Text Progress Note Text: S/O:Malia remains in the ICU on the CIWA protocol. Her last CIWA score at 1312 was 20. She was medicated with 3mg if IV Ativan and was asleep when CM attempted to meet with her. Malia's vital signs have been stable however she has had a low grade temp between 37.6 and 38 C. A: Malia is a 33 year old female admitted with alcohol withdrawal Discharge Potential Discharge Needs: PCP F/U Appt Anticipated Barriers to Discharge: None Identified Patient/Family Education Needs: Review discharge instructions, discuss Ask Me Three Transportation: Private vehicle Plan: Anticipate Malia will be discharged home with no new services. Hopefully she will follow up with her Blasting Cap Assembler and/or find a counselor who can help with her AUD. Malia will follow up with her PCP and plan of care and transport via private vehicle. SDOH(Care Management) Screening Will the Patient Participate in the Screening?: Yes Do you worry about having a steady place to live?: no In the past 12 months, have you had to go without electric, gas, oil or water in your home?: no Have you or anyone in your house had to go without enough food to eat?: no Has lack of transportation kept you from medical appointments or from doing things needed for daily living?: no Has anyone in your support network made you feel unsafe for any reason?: no
--- NOTE | 2024-01-30 08:37 | W.PM.PROGNOT ---
Date of Service Date of service: 01/30/24 Time of Service: 08:37 Assessment and Plan Assessment and plan (1) Alcohol withdrawal syndrome: Status: Acute Assessment and plan: Patient has exceeded her phenobarbital limit, so I have switched to benzodiazepines to control both her withdrawal symptoms and her alcohol withdrawal symptoms. continue rest of treatment for her anxiety including adjustment of her sertraline, adjunct treatments including mirtazepine. I will dc her gabapentin to avoid oversedation given she is now on klonopin and prn ativan. Qualifiers: Complication of substance-induced condition: uncomplicated Qualified Code(s): F10.930 - Alcohol use, unspecified with withdrawal, uncomplicated (2) Alcohol use disorder, severe, dependence: Status: Acute Assessment and plan: per Dr. Curry, she has had multiple attempts at quitting but w/ rescidivism, consider putting her on acamposate and offer riding coach once she has completed treatment for withdrawal (3) ADHD (attention deficit hyperactivity disorder), combined type: Status: Chronic Assessment and plan: UDS c/w prescribed stimulant. Holding for now. (4) Generalized anxiety disorder: Status: Chronic Assessment and plan: continue sertaline. dc gabapentin since she is now on klonopin and prn ativan continue mirtazepine at night (5) Alcoholic hepatitis: Status: Acute Assessment and plan: Mild, follow. (6) DVT prophylaxis: Status: Acute Assessment and plan: Low risk, she is ambulatory, no pharmacology prophylaxis. Subjective Subjective Interval history since last seen: Patient slept through the night. However, after awakened for her am labs she became agitated, crying demanding her lorazepam. She has already been started on klonopin yesterday at 0.25 mg tid. She wants to control the amount of ativan she is getting stating she has a high tolerance to benzodiazepines, stating she has been on benzodiazepines since she was 16 when she began her drinking of alcohol. This mornign she was given ativan2 mg IVP and now seems more calm but she is still very forceful about how much benzodiazepines she gets. She wants a schedule of ativan 2 mg along w/ the klonopin. I explained to her that she will not get both scheduled. But I will increase her dose of her klonopin to 0.5 mg tid and put her on the lorazepam alcohol withdrawal protocol and I have asked nursing to dose her lorazepam based on her RASS score. Exam Narrative Exam Narrative: Young white female who is up walking around the room, she is not hallucinating, while she is firm in her negotiation on her meds, she is calm, not yelling or crying, non-diaphoretic No visible tremors Objective Last Vital Signs Temp 37.1 C 01/30/24 00:00 Pulse 54 L 01/29/24 17:27 Resp 20 01/30/24 07:00 BP 119/73 01/29/24 17:27 Pulse Ox 95 01/30/24 05:00 Laboratory Results - last 24 hr 01/29/24 01/30/24 05:55 05:36 WBC 7.86 RBC 4.11 Hgb 12.7 D Hct 40.2 MCV 98 H D MCH 30.9 MCHC 31.6 L RDW 13.2 Plt Count 222 MPV 10.0 Immature Gran % 0.4 Neutrophils % 72.7 Lymphocytes % 17.4 Monocytes % 6.0 Eosinophils % 2.7 Basophils % 0.8 Nucleated RBC % 0.0 Absolute Neutrophils 5.72 Absolute Lymphocytes 1.37 Absolute Monocytes 0.47 Absolute Eosinophils 0.21 Absolute Basophils 0.06 Sodium 138 143 Potassium 4.0 4.2 Chloride 101 108 H Carbon Dioxide 29.9 26.7 Anion Gap 7.1 8.3 BUN 12 17 Creatinine 0.9 0.8 Est GFR (CKD-EPI 2020) 87.65 100.96 Glucose 103 79 Calcium 9.0 8.3 L Phosphorus 3.4 Magnesium 1.6 L 2.0 Total Bilirubin 1.0 0.4 Conjugated Bilirubin 0.3 H AST 56 H 39 H ALT 104 H 80 H Alkaline Phosphatase 66 72 Total Protein 6.5 5.9 L Albumin 3.4 3.0 L Phenobarbital 21.4 PAWSS Have you Been Recently Intoxicated or Drunk Within the Last 30 days?: Yes Have you Ever Experienced Previous Episodes of Alcohol Withdrawal?: Yes Have you ever Experienced Withdrawal Seizures?: No Have you ever Experienced Delirium Tremens(DT)s?: Yes Have you ever undergone Alcohol Rehabilitation Treatment (i.e, inpt ot outpatient treatment programs)?: Yes Have you ever Experienced Blackouts?: Yes Have you ever Combined Alcohol with other Downers within the last 90 days?: Unable to Obtain Have you ever Combined Alcohol with any other Substance of Abuse during the last 90 days?: Unable to Obtain Positive Blood Alcohol level on Presentation? [PCS.BAL]: Yes Evidence of Increased Autonomic Activity (i.e. HR>120, tremor, sweating, agitation, nausea)?: Yes Result: 7 Time Spent with Patient Time Spent with Patient: 35-49 minutes Time was spent: preparing to see the patient(eg.review tests), ordering medications,tests, procedures, referring, communicating with other health career services coordinator, indepentently interpreting results, counseling the patient and care coordination
[2024-01-30] MEDS: Polyethylene Glycol 3350 17 GM PACKET PO (09:08)
[2024-01-30] MEDS: Docusate Sodium 100 MG CAP PO (13:11)
[2024-01-30] MEDS: clonazePAM 0.5 MG TAB PO ×2 (14:12→20:14)
--- NOTE | 2024-01-30 15:32 | CHAPLAIN ---
Malia was sitting up in bed working on a puzzle when I visited. She appeared calmed and focused on her puzzle. She said he daughters, 5 and 7 years old, won't be visiting again because they were scared by seeing blood on the floor when they visited yesterday. She's keeping in touch with them by phone, but said it's hard to be away from them, and at the same time, she said she knows she needs to be here. Malia appreciated the prayer shawl I brought her and asked me to pray for the girls' father.
--- NOTE | 2024-01-30 19:30 | NUR.NOTE ---
Nursing Note: At this time pt is refusing vitals monitoring equipment though she is connecting cariac leads intermittently. Pt is pacing in and feels too limited by cords.
[2024-01-30] MEDS: Mirtazapine 15 MG TAB PO (20:14)
[2024-01-30] MEDS: Sertraline 50 MG TAB 75 MG PO (20:15)
--- NOTE | 2024-01-30 21:27 | NUR.NOTE ---
Nursing Note: Pt expressed that she is ready to leave. Pt d/c'd own IV. Pt stated I have a ride. Upon follow up pt's plan was to drive home. 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 Pt has plan to have grandmother come get her. Grandmother discussed situation with RN, who confirmed that pt is leaving AMA. Given this information, grandmother said she would not give a ride for AMA discharge. Pt then contacted uncle to give her ride. RN informed pt that he would need to come in through ED and present to ICU nurses station. Discussion ongoing at this time. Manager Gaming aware and security present on floor.
--- NOTE | 2024-01-30 22:03 | NUR.NOTE ---
Nursing Note: I called Dr. Greene to discuss whether pt was appropriate for medical d/c, MD assessment was that medical d/c would happen tomorrow at the earliest pending pt condition upon d/c of benzos. Pt was informed. Pt called a friend named Mignon who agreed to porvide a ride for pt. Pt informed of AMA d/c process under the current circumstances. Mignon states she is en route at this time.
--- NOTE | 2024-01-30 22:19 | NUR.NOTE ---
Nursing Note: Prior to AMA d/c pt was advised that she is not medically cleared and failure to heed medical advice could lead to illness, injury or . Baldo Quezada RN also advised pt of possible consequences of leaving AMA and that she cannot be allowed to operate any motor vehicle. Pt advised that while we cannot hold her, if she does leave without having a sober adult to provide transportation, that police must be notified. spoke with pt about he current state of intoxication r/t IV benzo admin. Mignon arrived in front of hospital. Ot was escorted to front door by ths RN, security and nursing boots and shoes supervisor. Mignon exited vehicle and appeared to be sober and of sound mind with all parties present in agreement to these observations. Tenon Machine Operator was advised that pt is considered legally intoxicated and cannot be allowed to operate any vehicle. Friend asked if pt was cleared to leave, this RN responded that questions about pt care must be directed to pt as I cannot disclose protected information. Mignon acknowledged this response. Pt and her belongings were loaded into vehicle.
--- NOTE | 2024-01-30 22:35 | DSE_ITS ---
Date of service: 01/30/24 Time of Service: 22:35 DS: Diagnosis Discharge Diagnosis (1) Alcohol withdrawal syndrome: Start date: 01/28/24 Status: Acute Asessment and Plan: 33-year-old lady admitted with alcohol withdrawal initiated on phenobarbital protocol and reached maximum dosing level initiated on Ativan IV the day of discharge AMA. Patient had received IV Ativan less than an hour prior to wanting to leave AMA and I did call a friend to take her home to see her children. She stated that she has been off alcohol for 6 days and she did want to still not drink having sober periods for up to 6 months and more recently just over 1 month. She does have multiple psychiatric disease but may be contributing to her alcohol consumption with self treatment. She signed out AMA and will return to outpatient care. She was brought home by her friend and will leave her car at the hospital know that she cannot drive until tomorrow. (2) Alcohol use disorder, severe, dependence: Status: Chronic Asessment and Plan: Ongoing with poor insight. (3) ADHD (attention deficit hyperactivity disorder), combined type: Status: Chronic Asessment and Plan: Not on medical treatment and this should be addressed as an outpatient. (4) Generalized anxiety disorder: Status: Chronic Asessment and Plan: On Zoloft currently the patient does seem to appreciate the response to benzodiazepines though this may be dangerous with her chronic alcoholism. (5) Alcoholic hepatitis: Status: Chronic Asessment and Plan: Stable at discharge. (6) DVT prophylaxis: Status: Acute Asessment and Plan: Given during hospital stay. Discharge Plan Disposition Patient Disposition: Eloped Condition: Stable Discharge Details Reason For Visit: Alcohol Withdrawal Admit Date/Time: 01/28/24 12:17 Admit Provider: Margarito Curry Attending Provider: Margarito Curry Primary Care Provider: Randolph Harvey Hospital Course Hospital Course: This is a 33-year-old female patient who presented to the ED morning of admission with increasing anxiety and a desire to stop drinking. She was admitted to the ICU for alcohol withdrawal and was given the phenobarbital protocol reaching the maximum dosing then being switched to IV Ativan on the day of discharge. The had just received IV Ativan and then decided that she wanted to leave AMA to see her children. She was demanding of various medical treatments during her hospital stay and had even asked about Antabuse which would not be appropriate. She should follow-up with her PCP and discuss long- term treatment options for her psychiatric disease which may be contribute to her treatment with alcohol and chronic alcoholism. She appears to have poor insight. Prognosis is poor. Home Meds and New Rx's Prescriptions: No Action sertraline [Zoloft] 100 mg tablet 50 mg PO HS lisdexamfetamine 30 mg capsule See Rx Instructions .ROUTE .COMPLEX Patient Comments: TAKE ONE CAPSULE BY MOUTH EVERY DAY Rx Instructions: Pt reports taking half dose some days Discharge Instructions Activity:: No driving upon discharge Equipment/Supplies:: No Equipment Needed Diet:: Normal Diet Discharge Orders Discharge Orders: Discharge Order (Routine); Ordered 01/30/24 Ordered By: Shakeel Greene DS: Summary Time Spent with Patient providing and/or coordinating discharge services: Less than 30 minutes Status at Discharge Functional status at discharge: independent ambulation Overall status at discharge: patient is not back to baseline Mental Status: mental status grossly normal Speech and Movement: speech and movement normal Mood: dysthymic mood Affect: indifferent Quality:SDOH Health Related Social Needs: No Data to Display Exam Narrative Exam Narrative: Patient is moderately obese and appears calm at discharge though slightly sedated with good eye contact and clear speech. She was walking without assistance. Full exam was not performed with patient leaving AMA. See physical exam on day of discharge progress note. Psych Mental Status: mental status grossly normal Speech and Movement: speech and movement normal Mood: dysthymic mood Affect: indifferent DS: Data Vitals/I&O Vitals and I&O: Vital Signs Temperature 37.5 C 01/30/24 20:34 Temperature Source Temporal Artery Scan 01/30/24 20:34 Pulse 72 01/30/24 15:48 Pulse 83 01/30/24 15:48 Respiratory Rate 16 01/30/24 15:48 Respiratory Effort Normal, Non-Labored 01/30/24 20:34 Respiratory Depth Normal 01/30/24 20:34 Respiratory Pattern Normal 01/30/24 20:34 Blood Pressure 138/85 01/30/24 15:48 Blood Pressure Mean 100 01/30/24 15:48 Blood Pressure Position Sitting 01/30/24 15:00 Pulse Oximetry 100 01/30/24 15:48 Respiratory End-tidal CO2 30 01/29/24 05:02 Oxygen Delivery Method Room Air 01/30/24 20:34 Oxygen Flow Rate 0 01/30/24 20:34 Pain Level 0 01/30/24 20:34 Comment 31 ETCO2 01/29/24 04:41 Intake & Output 01/29/24 01/30/24 01/30/24 23:59 11:59 23:59 Intake Total 500 / 930 990 / 2100 1110 / 2100 Output Total 1650 / 1650 200 / 200 Balance -1150 / -720 790 / 1900 1110 / 1900 Weight 88.6 kg Intake: IV Oral 500 / 920 970 / 2070 1100 / 2070 Output: Urine 1650 / 1650 200 / 200 Other: Urine Color Light Elisabeth Yellow Urine Appearance Clear Urine Odor Strong Comment pt used the toilet in the room so unsure of the amount pt used toilet in room, not measured Stool Size Moderate Moderate Stool Characteristics Soft Hard Formed Brown Voiding Methods Bedside Commode Bedside Commode Toilet Data Completed and Pending Labs on day of discharge: Labs from last 24 hours 01/30/24 05:36 Sodium 143 Potassium 4.2 Chloride 108 H Carbon Dioxide 26.7 Anion Gap 8.3 BUN 17 Creatinine 0.8 Est GFR (CKD-EPI 2020) 100.96 Glucose 79 Calcium 8.3 L Magnesium 2.0 Total Bilirubin 0.4 AST 39 H ALT 80 H Alkaline Phosphatase 72 Total Protein 5.9 L Albumin 3.0 L PFSH All Active Problems Alcohol withdrawal (Acute) Delirium tremens (Acute) DVT prophylaxis (Acute) Alcoholic hepatitis (Chronic) Alcohol use disorder, severe, dependence (Chronic) Alcohol withdrawal syndrome (Acute) Panic (Acute) Herpes simplex type 1 infection (Acute 12/19/16) Eczema (Chronic) ADHD (attention deficit hyperactivity disorder), combined type (Chronic) Generalized anxiety disorder (Chronic) Depression (Acute) Medical History Presence of intrauterine contraceptive device (IUD) Paragard IUD placed 12/01/23 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 Vanessa Bryan MD History of calculus of kidney during (12/19/16) History of substance abuse (12/19/16) History of acute pyelonephritis Surgical History EGD w/Bx for H.Pylori (07/29/08) [facility] Cystoscopy (01/05/18) [facility] [place] with R ureteral stent placement Family History Father , OD at age 42. Substance abuse Essential hypertension Mother Mental disorder Bipolar d/o Neoplasm small cell neuroendocrine carcinoma Sister Substance abuse Mental disorder Bipolar d/o Brother Substance abuse Mental disorder Bipolar d/o Brother Substance abuse Mental disorder Bipolar d/o Grandmother Neoplasm Breast CA Social History Smoking/Tobacco Use Status: Current every day Tobacco Type: cigarettes and e- cigarettes Tobacco: How many years used: 10 Quit status: has quit before Counseling given: provider counseling Smoking risk assessment performed?: Yes Alcohol Intake: current Alcohol Intake frequency: 3 or more drinks per day Alcohol type: beer, wine and hard liquor Details: Decided to quit drinking. Stopped 01/2019 Drug use: Occasionally Substance use type: marijuana Adopted: No Foster care: No Household members: significant other and children Housing: apartment Number of Children: 2 current occupation: [employer] Pets and animals: Yes (1 dog) What type of physical activity do you participate in: regular exercise Duration: other Details: cleaning Frequency: daily Do you feel safe at home: Yes Do you feel safe in your relationship?: Yes Female Reproductive History Menstrual Duration of menses: 6-7 days control method: copper IUCD History History 2 Para 2 Hx # Term Pregnancies 2 Multiple births 0 Hx # Pregnancies 0 Ectopic pregnancies 0 AB induced 0 Hx Number of Living Children 2 AB spontaneous 0 Past Pregnancies Del. Date GA/Weeks # Preg Succ Route Wgt Sex Labor Lgth Anesth esia Location [facility] 11/20/16 40 vaginal 2920.001 g Female 9 hours regional 12/22/18 40 No vaginal 3685.438 g Female Sudhir Bauer,SAHARA Delivery Date: 11/20/16 Last Updated by: Vale Bauer Delivered at [facility] Time Spent with Patient Time Spent with Patient: <45 minutes Time was spent: preparing to see the patient(eg.review tests), obtaining and/or reviewing separately otained hiistory and counseling the patient
== END 2024-01-30 22:15 | disposition left against medical advice (07) | DRG 894 ==
LOC: ER 11:05 → ICU 12:18
PROVIDERS: Internal Medicine; Admitting Provider Family Medicine; Emergency Provider Student in an Organized Health Care Education/Training Program; PCP Student in an Organized Health Care Education/Training Program; Visit Provider Family Medicine
DX: F10.239 Alcohol dependence with withdrawal, unspecified (principal); F90.2 Attention-deficit hyperactivity disorder, combined type; K70.10 Alcoholic hepatitis without ascites; F43.10 Post-traumatic stress disorder, unspecified; L30.9 Dermatitis, unspecified; F32.A Depression, unspecified; F17.210 Nicotine dependence, cigarettes, uncomplicated; F41.0 Panic disorder [episodic paroxysmal anxiety]
CPT/HCPCS: 00123; 36415; 80048; 80053; 80076; 80307; 96365; 96375; 99285; 80184; 80320; 83735; 84100; 85025; 85610; 85730; 99222; 99232; 99238; J1815; J2060; J2405; J2560; J3360; J3411; J3475

== ENCOUNTER 2024-02-01 20:24 | Inpatient (IN) | payer BC, SELFPAY ==
[2024-02-01 20:26] VITALS: BP 159/112; PULSE 107; RESP 16; TEMP 36.6; O2SAT 99
--- NOTE | 2024-02-01 21:00 | ED.GENADUL_ITS ---
Discharge Plan Disposition Patient Disposition: Admit to [facility] Condition: Stable Discharge Details Chief Complaint: ETOHWithdr Clinical Impression: Alcohol withdrawal Primary Care Provider: Randolph Harvey ED Provider: Zaki Deutsch Home Meds and New Rx's Prescriptions: No Action sertraline [Zoloft] 100 mg tablet 50 mg PO HS lisdexamfetamine 30 mg capsule See Rx Instructions .ROUTE .COMPLEX Patient Comments: TAKE ONE CAPSULE BY MOUTH EVERY DAY Rx Instructions: Pt reports taking half dose some days HPI General Date/Time Provider Initiated Documentation: 02/01/24 20:38 . HPI Narrative: 33-year-old female history of alcohol abuse, benzodiazepine abuse, presents requesting alcohol detox, left AGAINST MEDICAL ADVICE from ICU recently as she was tired of being abused with IVs. Patient endorses drinking shortly before arrival to emergency department. Related Data Home Medications Medication Instructions Recorded Confirmed sertraline 100 mg tablet (Zoloft) 50 mg PO HS 06/26/20 02/01/24 lisdexamfetamine 30 mg capsule See Rx Instructions .Route .COMPLEX 10/22/23 02/01/24 Allergies Allergy/AdvReac Type Severity Reaction Status Date / Time Penicillins AdvReac Intermediate Hives Verified 02/01/24 23:16 General Stated Complaint: ETOHWithdr LETITIA: 2 Review of Systems Narrative: Review of Systems Constitutional: negative Eyes: negative ENT: negative Cardiovascular: negative Respiratory: negative Gastrointestinal: negative : negative Musculoskeletal: negative Skin: negative Neurologic: negative Psych: negative Exam Narrative Exam Narrative: Physical Examination General: alert, awake HEENT: normocephalic, atraumatic; PERRL, EOM intact, conjunctiva normal; no nasal discharge; moist mucous membranes, oral and pharyngeal mucosa normal, tolerating secretions Neck: supple, trachea midline; full ROM Chest: normal to inspection Respiratory: normal respiratory effort, speaking in full sentences GI: abdomen soft, non-tender, non-distended; no palpable mass or hepatosplenomegaly Skin: no lesions, rashes or trauma appreciated Neuro: AAOx3, no tremors no fasciculations, ambulatory no focal neurologic deficits Extremities: No signs of trauma or edema Psych: Verbally combative Course Vital Signs Vital signs: Vital Signs Temperature 36.6 C 02/01/24 20:26 Pulse 107 H 02/01/24 20:26 Respiratory Rate 02/01/24 20:26 Blood Pressure 159/112 H 02/01/24 20:26 Pulse Oximetry 99 02/01/24 20:26 Temperature 36.6 C 02/01/24 20:26 Temperature Source Temporal Artery Scan 02/01/24 20:26 Pulse 107 H 02/01/24 20:26 Respiratory Rate 16 02/01/24 20:26 Respiratory Effort Normal 02/01/24 20:33 Blood Pressure 159/112 H 02/01/24 20:26 Blood Pressure Position Sitting 02/01/24 20:26 Pulse Oximetry 99 02/01/24 20:26 Oxygen Delivery Method Room Air 02/01/24 20:26 Oxygen Flow Rate 0 02/01/24 20:26 Pain Level 0 02/01/24 20:26 Medical Decision Making 33-year-old female brought in by private vehicle, requesting alcohol detox. Patient endorses drinking before arrival. No evidence of withdrawal at this time, patient appears intoxicated however is alert interactive moving all extremities without deficit ambulatory of own accord no external signs of trauma, no indications of infection or other active medical condition, no hallucinations delusions or seizure activity. Patient reports leaving as medical advice as she felt abused by the amount of IV blood draws/IV access attempts were performed in the ICU during her stay. Patient has been verbally aggressive and confrontational with multiple staff members. I have attempted to recreation counselor patient at bedside she continues to demand immediate admission to the hospital. I counseled her that she is not displaying any signs of alcohol withdrawal at this time in fact she is showing signs of alcohol intoxication. I have given her the option to stay here in the emergency department for further observation and treatment if alcohol withdrawal is to develop or to pursue Librium taper as an outpatient. Patient would like to attempt Librium taper as an outpatient. 21: 08 patient no longer wishes to pursue Librium taper. However patient will not comply with further treatment and evaluation. Patient currently hemodyn amically stable ambulatory of her own accord, will be moved to the waiting room. If patient decides that she would like further treatment or show signs of any clinical deterioration we will gladly take care of her until then she can wait in the waiting room as she is displaying manipulative and aggressive behavior towards staff 22: 44 patient has decided to comply with medical evaluation. Discussed case with hospitalist Dr. Ortega who was involved in her care during her last stay before she left AGAINST MEDICAL ADVICE. Recommending obtaining basic labs urine drug screen as well as ethanol level. Will discuss possible admission pending clinical presentation and lab results 23: 21 CIWA of approximately 10 have initiated phenobarbital protocol at request of admitting hospitalist. Patient be placed in ICU. 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 Vanessa Bryan MD History of calculus of kidney during (12/19/16) History of substance abuse (12/19/16) History of acute pyelonephritis Surgical History EGD w/Bx for H.Pylori (07/29/08) [facility] Cystoscopy (01/05/18) [facility] with R ureteral stent placement Family History Father , OD at age 42. Substance abuse Essential hypertension Mother Mental disorder Bipolar d/o Neoplasm small cell neuroendocrine carcinoma Sister Substance abuse Mental disorder Bipolar d/o Brother Substance abuse Mental disorder Bipolar d/o Brother Substance abuse Mental disorder Bipolar d/o Grandmother Neoplasm Breast CA Social History Smoking/Tobacco Use Status: Current every day Tobacco Type: cigarettes and e- cigarettes Tobacco: How many years used: 10 Quit status: has quit before Counseling given: provider counseling Smoking risk assessment performed?: Yes Alcohol Intake: current Alcohol Intake frequency: 3 or more drinks per day Alcohol type: beer, wine and hard liquor Details: Decided to quit drinking. Stopped 01/2019 Drug use: Never Substance use type: marijuana Adopted: No Foster care: No Household members: significant other and children Housing: apartment Number of Children: 2 current occupation: [employer] Pets and animals: Yes (1 dog) What type of physical activity do you participate in: regular exercise Duration: other Details: cleaning Frequency: daily Do you feel safe at home: Yes Do you feel safe in your relationship?: Yes Female Reproductive History Menstrual Duration of menses: 6-7 days control method: copper IUCD History History 2 Para 2 Hx # Term Pregnancies 2 Multiple births 0 Hx # Pregnancies 0 Ectopic pregnancies 0 AB induced 0 Hx Number of Living Children 2 AB spontaneous 0 Past Pregnancies Del. Date GA/Weeks # Preg Succ Route Wgt Sex Labor Lgth Anesth esia Location [facility] 11/20/16 40 vaginal 2920.001 g Female 9 hours regional 12/22/18 40 No vaginal 3685.438 g Female Sudhir Bauer,SAHARA Delivery Date: 11/20/16 Last Updated by: Vale Bauer Delivered at [facility] Have you Been Recently Intoxicated or Drunk Within the Last 30 days?: Yes Have you Ever Experienced Previous Episodes of Alcohol Withdrawal?: Yes Have you ever Experienced Withdrawal Seizures?: No Have you ever Experienced Delirium Tremens(DT)s?: Yes Have you ever undergone Alcohol Rehabilitation Treatment (i.e, inpt ot outpatient treatment programs)?: Yes Have you ever Experienced Blackouts?: Yes Have you ever Combined Alcohol with other Downers within the last 90 days?: No Have you ever Combined Alcohol with any other Substance of Abuse during the last 90 days?: No Positive Blood Alcohol level on Presentation? [PCS.BAL]: Yes Evidence of Increased Autonomic Activity (i.e. HR>120, tremor, sweating, agitation, nausea)?: Yes Result: 7
--- NOTE | 2024-02-01 21:26 | NUR.NOTE ---
Nursing Note: this commercial real estate underwriter assisted pt to waiting area per request. Pt does not appear to fully appreciate the situation, and is conflicted about staying for help and leaving to get home due to her frustration with the health care team. She is obviously intoxicated by her unsteady gait, odor of alcohol on breath, and slurring of words--as well as her own admission. She is unable to carry the bags she brought with her, and requires assistance with these. While sitting in the waiting area she requests her vape, and education is provided that because she has not been discharged and is not safe to go outside by herself, security will continue to hold her vape until she is safely discharged. The patient then calls a friend, who refuses to pick her up and provide ride home because of the help she needs with stopping the use of alcohol. The patient is tearful at times, and continues to vacilate between insisting on help and stating she is going to walk home by herself because she doesn't want to wait for her treatment to start. This commercial real estate underwriter, her primary nurse, and the physician explain that it is not possible to treat her while she is intoxicated, and explain what is necessary in order for to be admitted. The patient is left by this commercial real estate underwriter seated in the waiting area with her belongings, again encouraged by this commercial real estate underwriter to stay and get help.
[2024-02-01 22:46] LABS: Abs Immature Grans 0.04 10^3/uL (0.0-0.06); Absolute Basophil Count 0.07 10^3/uL (0.0-0.2); Absolute Eosinophil Count 0.18 10^3/uL (0.0-0.7); Absolute Lymphocyte Count 1.99 10^3/uL (1.2-3.4); Absolute Monocyte Count 0.74 10^3/uL (0.1-0.8); Absolute Neutrophil Count 8.91 10^3/uL (1.2-6.7); Basophils % 0.6 %; Eosinophils % 1.5 %; HCT 43.1 % (36.0-46.0); Immature Grans % 0.3 %; Lymphocytes % 16.7 %; MCH 31.3 pg (27.0-33.0); MCHC 32.5 % (32.0-36.0); MCV 96 fL (80-95); MPV 10.3 fL (8.0-11.0); Monocytes % 6.2 %; Neutrophils % 74.7 %; Platelet Count 214 10^3/uL (130-400); RBC 4.48 10^6/uL (3.93-5.22); RDW 13.2 % (11.7-14.6); RDW-SD 46.5 fL; WBC 11.93 10^3/uL (4.4-10.8)
[2024-02-01] MEDS: Ondansetron 4 MG/2 ML VIAL IVP (22:51)
[2024-02-01] MEDS: Acetaminophen 325 MG TAB 650 MG PO (22:51)
[2024-02-01 23:03] LABS: ALT 128 U/L (14-59); AST 71 U/L (15-37); Albumin 4.3 g/dL (3.4-5.0); Alkaline Phosphatase 76 U/L (46-116); BUN 5 mg/dL (7-18); Bilirubin, Total 0.6 mg/dL (0.2-1.0); CREATININE 0.6 mg/dL (0.55-1.02); Calcium 8.6 mg/dL (8.5-10.1); Chloride 99 mmol/L (98-107); ETHANOL BLOOD 255.7 mg/dL (<10); Estimated GFR 122.99 (mL/min/1.73m2); Glucose 85 mg/dL (74-106); Potassium 3.3 mmol/L (3.5-5.1); Sodium 137 mmol/L (136-145); Total Protein 7.9 g/dL (6.4-8.2)
[2024-02-01 23:05] LABS: *AMPHETAMINES SCREEN URINE Negative (Negative); *BARBITURATES SCREEN URINE Positive (Negative); *BENZODIAZEPINES SCREEN URINE Positive (Negative); Cannabinoids THC Negative (Negative); Cocaine Screen,Urine Negative (Negative); METHADONE URINE SCREEN Negative (Negative); OPIATES URINE SCREEN Negative (Negative)
[2024-02-01 23:07] LABS: Tricyclic Antidepressants Negative (Negative)
[2024-02-02] VITALS (25 sets, daily range): BP systolic 107–139; BP diastolic 67–99; PULSE 69–110; RESP 9–34; TEMP 36.2–36.9; O2SAT 96–100
--- NOTE | 2024-02-02 00:27 | NUR.NOTE ---
Nursing Note: Pt refusing to keep telemetry on to assess CIWA.
--- NOTE | 2024-02-02 00:53 | W.PC.ACHO ---
Registration Status: ADM IN Primary Language: Preferred Language: Yakut ED Information & Data Chief Complaint ETOHWithdr 02/01/24 21:05 Triage Note Pt states she wants ETOH 02/01/24 20:26 detox. Pt was admitted last Friday and left AMA d/t to 'being abused w IV needles'. 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 Pt states she drinks 25 White claws a day. Pt swearing in triage stating 'just fucking put me in the ICU'. Pt unwilling to answer any futher questions, crying and states 'i packed a bag, read my chart'. Medical / Surgical History (Last Reviewed 01/30/24 @ 22:40 by Shakeel Greene) Presence of intrauterine contraceptive device (IUD) History of cervical dysplasia Neoplasm of uncertain behavior, unspecified History of calculus of kidney during (12/19/16) History of substance abuse (12/19/16) History of acute pyelonephritis (Last Reviewed 01/30/24 @ 22:40 by Shakeel Greene) EGD w/Bx for H.Pylori (07/29/08) Cystoscopy (01/05/18) Most Recent Vital Signs Temperature 36.6 C 02/01/24 20:26 Temperature Source Temporal Artery Scan 02/02/24 00:29 Pulse 89 02/02/24 00:29 Respiratory Rate 20 02/02/24 00:29 Respiratory Effort Normal 02/01/24 20:33 Respiratory Pattern Normal 02/01/24 22:43 Blood Pressure 114/67 02/02/24 00:29 Blood Pressure Position Sitting 02/01/24 20:26 Pulse Oximetry 98 02/02/24 00:29 Oxygen Delivery Method Room Air 02/02/24 00:29 Oxygen Flow Rate 0 02/02/24 00:29 Pain Level 0 02/01/24 20:26 Allergies Penicillins Adverse Reaction (Intermediate, Verified 02/01/24 23:16) Hives IV IV Catheter Type [Right Upper Saline Lock arm] IV Catheter Gauge [Right Upper 20 arm] Diet Orders Category Date Time Status Regular/Normal [DIET] Nutrition 02/02/24 Breakfast Active Diagnostics 02/02/24 02/02/24 02/01/24 Range/Units 05:35 00:18 22:40 WBC Pending 11.93 H (4.4-10.8) 10^3/uL RBC Pending 4.48 (3.93-5.22) 10^6/uL Hgb Pending 14.0 (11.2-15.7) g/dL Hct Pending 43.1 (36.0-46.0) % MCV Pending 96 H (80-95) fL MCH Pending 31.3 (27.0-33.0) pg MCHC Pending 32.5 (32.0-36.0) % RDW Pending 13.2 (11.7-14.6) % Plt Count Pending 214 (130-400) 10^3/uL MPV Pending 10.3 (8.0-11.0) fL Immature Gran % 0.3 % Neutrophils % 74.7 % Lymphocytes % 16.7 % Monocytes % 6.2 % Eosinophils % 1.5 % Basophils % 0.6 % Nucleated RBC % 0.0 (0.0-0.3) % Absolute Neutrophils 8.91 H (1.2-6.7) 10^3/uL Absolute Lymphocytes 1.99 (1.2-3.4) 10^3/uL Absolute Monocytes 0.74 (0.1-0.8) 10^3/uL Absolute Eosinophils 0.18 (0.0-0.7) 10^3/uL Absolute Basophils 0.07 (0.0-0.2) 10^3/uL PT Pending INR Pending Sodium Pending 137 (136-145) mmol/L Potassium Pending 3.3 L (3.5-5.1) mmol/L Chloride Pending 99 (98-107) mmol/L Carbon Dioxide Pending 27.0 (21.0-32.0) mmol/L Anion Gap Pending 11.0 (3-11) mmol/L BUN Pending 5 L (7-18) mg/dL Creatinine Pending 0.6 (0.55-1.02) mg/dL Est GFR (CKD-EPI 2020) Pending 122.99 (mL/min/1.73m2) Glucose Pending 85 (74-106) mg/dL Calcium Pending 8.6 (8.5-10.1) mg/dL Phosphorus Pending Magnesium Pending Total Bilirubin Pending 0.6 (0.2-1.0) mg/dL AST Pending 71 H (15-37) U/L ALT Pending 128 H (14-59) U/L Alkaline Phosphatase Pending 76 (46-116) U/L Total Protein Pending 7.9 (6.4-8.2) g/dL Albumin Pending 4.3 (3.4-5.0) g/dL TSH Pending Urine Opiates Screen Negative (Negative) Urine Methadone Screen Negative (Negative) Ur Barbiturates Screen Positive A (Negative) Ur Tricyclics Screen Negative (Negative) Ur Amphetamines Screen Negative (Negative) U Benzodiazepines Scrn Positive A (Negative) Urine Cocaine Screen Negative (Negative) Ur THC Screen Negative (Negative) Ethyl Alcohol 255.7 H (<10) mg/dL [id number] Documentation POC Urine Test Start: 02/01/24 22:18 Freq: .Urine Test Status: Active Protocol: Activity Type Activity Date Activity User E-sign Co-sign Detail Recorded Client Recorded Date Recorded By Document 02/01/24 23:19 MARY Desktop 02/01/24 23:19 MARY Intake and Output - 24 Hour Total 02/01/24 20:24 thru 02/01/24 20:26 Weight 79.379 kg Falls Risk Assessment History of Falls No History 02/01/24 20:33 Contributing Factors No Factors 02/01/24 20:33 Ambulatory Aids Independent 02/01/24 20:33 Tubes/Lines None 02/01/24 20:33 Gait Evaluation No gait disturbance 02/01/24 20:33 Cognition No cognitive impairment 02/01/24 20:33 Fall Total Score 0 02/01/24 20:33 Level of Risk Standard/Low Risk 02/01/24 20:33 Problems (Last Reviewed 01/30/24 @ 22:40 by Shakeel Greene) Alcohol withdrawal (Acute) Notes 02/02/24 00:27 Nursing Notes by Shante Florentino Nursing Note: Pt refusing to keep telemetry on to assess CIWA. Initialized on 02/02/24 00:27 - END OF NOTE 02/01/24 21:26 Nursing Notes by Malia Alcantara Nursing Note: this com writer assisted pt to waiting area per request. Pt does not appear to fully appreciate the situation, and is conflicted about staying for help and leaving to get home due to her frustration with the health care team. She is obviously intoxicated by her unsteady gait, odor of alcohol on breath, and slurring of words--as well as her own admission. She is unable to carry the bags she brought with her, and requires assistance with these. While sitting in the waiting area she requests her vape, and education is provided that because she has not been discharged and is not safe to go outside by herself, security will continue to hold her vape until she is safely discharged. The patient then calls a friend, who refuses to pick her up and provide ride home because of the help she needs with stopping the use of alcohol. The patient is tearful at times, and continues to vacilate between insisting on help and stating she is going to walk home by herself because she doesn't want to wait for her treatment to start. This com writer, her primary nurse, and the physician explain that it is not possible to treat her while she is intoxicated, and explain what is necessary in order for to be admitted. The patient is left by this com writer seated in the waiting area with her belongings, again encouraged by this com writer to stay and get help. Initialized on 02/01/24 21:26 - END OF NOTE v v v v v v v v v Sending and/or Receiving Nurses: Please use comment section below to note any information pertinent to the patient hand-off not included above. Information / Comments: Report received from: Vicky DUNCAN 02/01 0030
--- NOTE | 2024-02-02 01:20 | W.PM.HP.N ---
Date of service: 02/02/24 Time of Service: 01:20 Assessment and Plan Assessment and plan (1) Alcohol withdrawal: Start date: 02/02/24 Status: Acute Assessment and plan: This is a 33-year-old lady who has had multiple traumas as a child and has been given lorazepam since the age of 16 with probable PTSD, though this on her problem list but certainly manifest characteristics of personality disorder and is very difficult to discuss history and plan of care. She drinks daily since her discharge with AMA status two days prior to this admission but does state that she does go weeks and then months not drinking. She has never had alcohol withdrawal seizures but has symptoms of alcohol withdrawal though most of this is manifested with anxiety and very heated and loud as well as caloric and wandering discussions with caregivers. She appears to have never had hallucinations but does complain of headache and fear of withdrawing with tremors. She will be placed on benzodiazepine alcohol withdrawal protocol with IV lorazepam having been given 3 mg of IV lorazepam, though she was not scoring on CIWA scale upon admission to the ICU, to help calm her down. She states she has a high tolerance to benzodiazepines and there is concern that she may be chronically on illicitly obtained benzodiazepines as an outpatient. Urine drug screen upon her last admission did not show benzodiazepine but this admission urine drug screen is positive for benzodiazepines and barbiturates both of which were given IV 2 days ago. Amphetamine was not on her drug screen though amphetamines were were on her last admissions testing. She does have alcohol level upon admission. She states that she is not taking her sertraline consistently and it appears she has not followed through with any outpatient treatment for alcohol abuse. She denies IV drug use but as stated she may be obtaining benzodiazepines illicitly since this has not been prescribed to her by her PCP recently and she feels she needs symptom control. She would benefit long-term with outpatient alcohol treatment with abstinence, stating she has taken Antabuse in the past and has some at home, and more appropriate psychiatric evaluation and treatment of her multiple other related psychiatric diseases. She is not compliant which makes these treatments difficult and dangerous especially in combination with alcohol. She is a full code. Qualifiers: Complication of substance-induced condition: uncomplicated Qualified Code(s): F10.930 - Alcohol use, unspecified with withdrawal, uncomplicated (2) Alcoholic hepatitis: Status: Chronic Assessment and plan: Slightly exacerbated this admission but not severe. Qualifiers: Ascites presence: without ascites Qualified Code(s): K70.10 - Alcoholic hepatitis without ascites (3) Generalized anxiety disorder: Status: Chronic Assessment and plan: With associated personality disorder and probable PTSD. Long-term patient needs to find a better and safer treatment plan not involving addictive drugs which may be difficult. Did not appear to be compliant with other therapies as well. Her life is chaotic and she seems to have continuous stress being the mother of 2 young children with the father threatening to take custody. (4) Personality disorder, depressive: Status: Chronic Assessment and plan: Patient is very manipulative during discussion to advocate for herself to get what she needs and feels victimized with wandering conversation and at times threatening with anger. She is not compliant taking her antidepressant which may be exacerbating her symptoms. She needs to see psychiatry with appropriate counseling and medication adjustment and a present organized manner but this is unlikely with her personality disorder. (5) Alcohol use disorder, severe, dependence: Status: Chronic Assessment and plan: Patient drinks daily with periods of time drinking up to months but has not been able to quit drinking. She has reported strong motivation to stop drinking now that her children's father is starting to take full custody. (6) ADHD (attention deficit hyperactivity disorder), combined type: Status: Chronic Assessment and plan: Patient is on the lisdexamfetamine with negative drug screen today. Compliance may be an issue. Patient's PCP needs to review treatment plan. History of Present Illness History of Present Illness Chief Complaint: Alcohol intoxication with fear of withdrawing with desire to stop Narrative: This is a 33-year-old female patient who has had a recent hospitalization for alcohol withdrawal and required maximum doses of IV phenobarbital and then was switched to lorazepam treatment IV still being difficult to assess for alcohol withdrawal versus severe anxiety disorder which is associated with a personality disorder and dysfunction in her social life having 2 young children on the age of 12, the father of the children now. Him to take the children away that he also has recorded drug addiction issues by the patient and chronic trauma with probable PTSD. Patient is fearful of being in this hospital because her mother in this hospital and she is very difficult to interview and discuss treatment plan because of her extreme anxiety and immunization. She keeps repeating that various doctors we treated her and the past know about her high tolerance to benzodiazepines since she has been taking these chronically since age of 16. He does drink heavily and also smokes daily. She is uncertain but does not take this daily. She is noncompliant with medical therapy and very demanding. During her last hospitalization she signed out AMA stated she did see her children and has been going home by a friend because of IV lorazepam being given as she was trying to sign out AMA. She is very manipulative in her conversation and as stated is loud, cursing while crying and making demands for medications to help her feel better. She is complaining of a headache which is new states she is tremulous though when calmly talking she has no tremor. She is not having any hallucinations and had no nausea with her headache. Her affect is very labile and her cooperation also labile. After the patient was [id number] with the decision to stay in the ED stating that if her demands cannot be met she would just go home. She states she does not want inpatient psychiatric for alcohol treatment but is going to have outpatient alcohol treatment and does seek support from her alevism but also has friends. She has no family support. She appears to be estranged from her children's father. I did try to reassure patient that she would not go through alcohol withdrawal but that may not require with following protocol the doses of Ativan she was seeking did compromise and discussed treating her with oral lorazepam as needed for severe anxiety when she is not scoring on CIWA scale prompting IV Ativan every 2 hours per scoring. I did give a one-time dose of 3 mg IV lorazepam. Her IV site is always tenuous and when given the 3 mg dose of lorazepam she stated that she could taste in her mouth almost instantaneously lower dose was not completely and may not have been injected with IV difficult. This may indicate her unreliability scoring CIWA scale and interpreting her symptoms with extreme anxiety. She is a full code Review of Systems Narrative: 13 point review of systems was unrevealing or stable with patient scale and lifestyle. PFSH All Active Problems (Updated 02/02/24 @ 01:38 by Shakeel Greene) Personality disorder, depressive (Chronic) Alcohol withdrawal (Acute) Alcohol withdrawal (Acute) Alcoholic hepatitis (Chronic) Alcohol use disorder, severe, dependence (Chronic) Panic (Acute) Herpes simplex type 1 infection (Acute 12/19/16) Eczema (Chronic) ADHD (attention deficit hyperactivity disorder), combined type (Chronic) Generalized anxiety disorder (Chronic) Depression (Acute) Medical History Presence of intrauterine contraceptive device (IUD) Paragard IUD placed 12/01/23 History of cervical dysplasia December 2022: LSIL/HPV+ -->[place]: pending January 2022: colp --> CIN1 October 2021: LSIL/No HPV October 2020: Normal pap/No HPV Apr 2019: Normal pap/Neg HPV Apr 2018: ASCUS/HPV+ Neoplasm of uncertain behavior, unspecified new pt visit at [facility] [place] Derm 05/24/19. Vanessa Bryan MD History of calculus of kidney during (12/19/16) History of substance abuse (12/19/16) History of acute pyelonephritis Surgical History EGD w/Bx for H.Pylori (07/29/08) [facility] [place]ystoscopy [place]05/18[place] [facility] [place] Family History Father , OD at age 42. Substance abuse Essential hypertension Mother Mental disorder Bipolar d/o Neoplasm small cell neuroendocrine carcinoma Sister Substance abuse Mental disorder Bipolar d/o Brother Substance abuse Mental disorder Bipolar d/o Brother Substance abuse Mental disorder Bipolar d/o Grandmother Neoplasm Breast CA Social History Smoking/Tobacco Use Status: Current every day Tobacco Type: cigarettes and e-cigarettes Tobacco: How many years used: 10 Quit status: has quit before Counseling given: provider counseling Smoking risk assessment performed?: Yes Alcohol Intake: current Alcohol Intake frequency: 3 or more drinks per day Alcohol type: beer, wine and hard liquor Details: Decided to quit drinking. Stopped 01/2019 Drug use: Never Substance use type: marijuana Adopted: No Foster care: No Household members: significant other and children Housing: apartment Number of Children: 2 current occupation: [employer] Pets and animals: Yes (1 dog) What type of physical activity do you participate in: regular exercise Duration: other Details: cleaning Frequency: daily Do you feel safe at home: Yes Do you feel safe in your relationship?: Yes Female Reproductive History Menstrual Duration of menses: 6-7 days control method: copper IUCD History History 2 Para 2 Hx # Term Pregnancies 2 Multiple births 0 Hx # Pregnancies 0 Ectopic pregnancies 0 AB induced 0 Hx Number of Living Children 2 AB spontaneous 0 Past Pregnancies Del. Date GA/Weeks # Preg Succ Route Wgt Sex Labor Lgth Anesthesia Location Prov Complic 11/20/16 40 vaginal 2920.001 g Female 9 hours regional 12/22/18 40 No vaginal 3685.438 g Female Vale BauerSAHARA Delivery Date: 11/20/16 Last Updated by: Vale Bauer Delivered at [facility] Allergies and Home Medications Allergies Allergy/AdvReac Type Severity Reaction Status Date / Time Penicillins AdvReac Intermediate Hives Verified 02/01/24 23:16 Home Medications Medication Instructions Recorded Confirmed Type sertraline 100 mg tablet (Zoloft) 50 mg PO HS 06/26/20 02/01/24 History lisdexamfetamine 30 mg capsule See Rx Instructions .Route .COMPLEX 10/22/23 02/01/24 History Exam Narrative Exam Narrative: General: Patient appears appropriate for age but very anxious, crying with puffy eyes and cursing with loud voice and at times threatening. She has a very labile affect decompensated and monitored. She appears alert and oriented x 3. HEENT: Normocephalic, face slightly puffy with crying especially over her eyelids, eyes with pupils equal and reactive to light symmetrically, extraocular movement intact and sclera anicteric. Oropharynx with point because of fair dentition. Neck: Supple without JVD no palpable thyromegaly. Back: Stooped posture without CVA tenderness. Lungs: Fair aeration with some bronchovesicular breath sounds with no focalizing rales or rhonchi. No expiratory wheeze. Breast: Exam deferred. Heart: Regular rate and rhythm the patient is upset with no murmurs or gallops appreciated. Abdomen: Obese contour, soft and nontender to palpation with no palpable hepatosplenomegaly. Genitalia/rectal: Exam deferred. Skin: Normal color, warm and dry. Extremities: Without clubbing, cyanosis or pitting edema. Peripheral pulses intact. Neuro: Cranial nerves II through XII grossly intact, no focal motor deficits. No tremor noted though patient holds her hands out and is attempting to show for withdrawal symptoms. Psych: Labile affect with very anxious and depressed mood with patient minimizing his in conversation stating people do not understand and very critical medical care given with multiple IVs failing. (Patient stated that she has never been drug user) No abnormal thought processes or hallucinations. Remote and recent memory appear to be grossly intact. Results Labs 02/01/24 22:40 02/01/24 22:40 Labs: Laboratory Results - last 24 hr 02/01/24 22:40 WBC 11.93 H RBC 4.48 Hgb 14.0 Hct 43.1 MCV 96 H MCH 31.3 MCHC 32.5 RDW 13.2 Plt Count 214 MPV 10.3 Immature Gran % 0.3 Neutrophils % 74.7 Lymphocytes % 16.7 Monocytes % 6.2 Eosinophils % 1.5 Basophils % 0.6 Nucleated RBC % 0.0 Absolute Neutrophils 8.91 H Absolute Lymphocytes 1.99 Absolute Monocytes 0.74 Absolute Eosinophils 0.18 Absolute Basophils 0.07 Sodium 137 Potassium 3.3 L Chloride 99 Carbon Dioxide 27.0 Anion Gap 11.0 BUN 5 L Creatinine 0.6 Est GFR (CKD-EPI 2020) 122.99 Glucose 85 Calcium 8.6 Total Bilirubin 0.6 AST 71 H ALT 128 H Alkaline Phosphatase 76 Total Protein 7.9 Albumin 4.3 Urine Opiates Screen Negative Urine Methadone Screen Negative Ur Barbiturates Screen Positive A Ur Tricyclics Screen Negative Ur Amphetamines Screen Negative U Benzodiazepines Scrn Positive A Urine Cocaine Screen Negative Ur THC Screen Negative Ethyl Alcohol 255.7 H Last Vital Signs Temp 36.6 C 02/01/24 20:26 Pulse 89 02/02/24 00:29 Resp 20 02/02/24 00:29 BP 114/67 02/02/24 00:29 Pulse Ox 98 02/02/24 00:29 PAWSS Have you Been Recently Intoxicated or Drunk Within the Last 30 days?: Yes Have you Ever Experienced Previous Episodes of Alcohol Withdrawal?: Yes Have you ever Experienced Withdrawal Seizures?: No Have you ever Experienced Delirium Tremens(DT)s?: Yes Have you ever undergone Alcohol Rehabilitation Treatment (i.e, inpt ot outpatient treatment programs)?: Yes Have you ever Experienced Blackouts?: Yes Have you ever Combined Alcohol with other Downers within the last 90 days?: No Have you ever Combined Alcohol with any other Substance of Abuse during the last 90 days?: No Positive Blood Alcohol level on Presentation? [PCS.BAL]: Yes Evidence of Increased Autonomic Activity (i.e. HR>120, tremor, sweating, agitation, nausea)?: Yes Result: 7 Time Spent Time spent with Patient: >75 minutes Time was spent: preparing to see the patient(eg.review tests), obtaining and/or reviewing separately otained hiistory, ordering medications,tests, procedures, referring, communicating with other health pet care technician, indepentently interpreting results, counseling the patient and care coordination
[2024-02-02] MEDS: LORazepam 1 MG TAB 2 MG PO ×2 (01:59→05:55)
[2024-02-02] MEDS: Enoxaparin 40 MG/0.4 ML SYR SC (02:03)
[2024-02-02] MEDS: LORazepam 2 MG/ML VIAL 3 MG IVP (02:03)
[2024-02-02 06:42] LABS: HCT 39.2 % (36.0-46.0); HGB 12.8 g/dL (11.2-15.7); MCH 31.5 pg (27.0-33.0); MCHC 32.7 % (32.0-36.0); MCV 97 fL (80-95); MPV 10.4 fL (8.0-11.0); Platelet Count 198 10^3/uL (130-400); RBC 4.06 10^6/uL (3.93-5.22); RDW 13.2 % (11.7-14.6); RDW-SD 47.2 fL; WBC 7.56 10^3/uL (4.4-10.8)
[2024-02-02] MEDS: LORazepam 2 MG/ML VIAL IVP ×6 (06:50→23:35)
[2024-02-02 06:51] LABS: INR 0.9 (0.9-1.1); Prothrombin Time 9.1 sec (9.1-11.1)
[2024-02-02 07:00] LABS: Magnesium 1.8 mg/dL (1.8-2.4); PHOSPHORUS 4.8 mg/dL (2.6-4.7)
[2024-02-02 07:10] LABS: TSH 5.12 uIU/Ml (0.36-3.74)
[2024-02-02 07:14] LABS: ALT 105 U/L (14-59); AST 56 U/L (15-37); Albumin 3.5 g/dL (3.4-5.0); Alkaline Phosphatase 75 U/L (46-116); BUN 8 mg/dL (7-18); Bilirubin, Total 0.3 mg/dL (0.2-1.0); CREATININE 0.7 mg/dL (0.55-1.02); Calcium 8.9 mg/dL (8.5-10.1); Chloride 104 mmol/L (98-107); Estimated GFR 118.51 (mL/min/1.73m2); Glucose 102 mg/dL (74-106); Potassium 3.5 mmol/L (3.5-5.1); Sodium 140 mmol/L (136-145); Total Protein 6.7 g/dL (6.4-8.2)
[2024-02-02 11:42] LABS: FREE T4 0.86 ng/dL (0.76-1.46)
--- NOTE | 2024-02-02 11:55 | PHACLINREV_ITS ---
Pharmacy Admission Review Admission Clinical Review Admission Pharmacy Review: Alcohol withdrawal (Acute) Penicillins Adverse Reaction (Intermediate, Verified 02/01/24 23:16) Hives Resuscitation Status Full Code Height 5 ft 5 in Weight 79.379 kg Comments Comments/Follow Ups: Watch BP, HR, labs and for med changes. Pharmacy Admission Review Renal Dosing Renal Dosing: BUN 8 mg/dL (7-18) 02/02/24 06:00 Creatinine 0.7 mg/dL (0.55-1.02) 02/02/24 06:00 Medications needing adjustments: Reviewed (Crcl ~121 mL/min current meds okay) Anticoagulation Anticoagulation: Hgb 12.8 g/dL (11.2-15.7) 02/02/24 06:00 Hct 39.2 % (36.0-46.0) 02/02/24 06:00 Plt Count 198 10^3/uL (130-400) 02/02/24 06:00 INR 0.9 (0.9-1.1) 02/02/24 06:00 Creatinine 0.7 mg/dL (0.55-1.02) 02/02/24 06:00 DVT Prophylaxis: Reviewed Medications: Enoxaparin Opiate Usage Evaluate Pain Scale/Pains Meds: N/A Relevant Labs Relevant Labs: Sodium 140 mmol/L (136-145) 02/02/24 06:00 Potassium 3.5 mmol/L (3.5-5.1) 02/02/24 06:00 Chloride 104 mmol/L (98-107) 02/02/24 06:00 Phosphorus 4.8 mg/dL (2.6-4.7) H 02/02/24 06:00 Magnesium 1.8 mg/dL (1.8-2.4) 02/02/24 06:00 Electrolytes, C-Reactive P, ESR: Reviewed DM Control DM Control: N/A Cardiac Review BP, HR, EF%: Reviewed (BP and HR have been normal to high so far this admission) QTc Review QTc: N/A IV to PO Switch IV Medications: Reviewed Home Meds Home Med List reviewed: Reviewed Relevent Home Meds Not ordered & why?: lisdexamfetamine (possible compliance issues/PCP to review treatment plan per H&P) Current Meds Current Medication Order Review: Intervened (Adjusted enoxaparin per med adm inistration time policy and timing of previous dose. ) Comments Comments/Follow Ups: Watch BP, HR, labs and for med changes.
--- NOTE | 2024-02-02 12:06 | INITIAL_ITS ---
Date of service: 02/02/24 Time of Service: 12:07 Care Management Initial Assmt Initial Assessment Reason for Hospitalization: Alcohol withdrawal, anxiety Functional Status/Living Situation Patient Presentation: Malia was lying in bed, all but her head covered in blankets. She stated that she is not feeling well, and that she is trying to keep herself calm. CM asked if she has any techniques/coping skills to help with her anxiety, and she stated that she has notebooks and books, but she is not interested in reading/writing at this time. CM validated her feelings, and stated that sometimes it helps to use mindfulness/breathing to help manage anxiety. CM discussed her previous admission, reviewing and verifying information. CM asked about her experience with the development coach; she stated that it went well and she received information from him, but she is not interested in talking with him today. She stated that she is interested in an outpatient substance use therapist; CM will provide her with some options in the community. Malia asked to speak to her RN; CM relayed the message to her RN. Per RN, her recent CIWA score was 11, and she was given 3mg Ativan. She presented in a calm and cooperative manner with a flat affect, and she engaged appropriately during the interaction. CM will continue to follow. Town of Residence: [facility] Resides with: Child (two daughters, ages 5 and 7) Employment Status: Employed (works for [employer]) Instrumental Activities of Daily Living (ADLs): Independent Medications Medication Management: No Issues/Barriers identified Advance Directives Advance Directives: Do you have an Advance Directive: N 01/28/22 14:18 AD On File at [facility]: N 01/28/22 14:18 Date Asked 02/01/24 02/01/24 20:30 AD Date Reviewed COLST On File at [facility] COLST Date Scanned Code Status Resuscitation Status Full Code Insurance Coverage/Financial Issues Insurance: BC/BS Financial assistance 100% ACO Member: No Care Team Visit Care Team Role Provider Type Randolph Harvey Primary Care Provider NON-[facility] STAFF PHYSICIAN Zaki Deutsch MD Emergency Provider [facility] STAFF PHYSICIAN Shakeel Greene Admit Provider NON-[facility] STAFF PHYSICIAN Attending Provider Discharge Potential Discharge Needs: Consult Consult Services Needed: Other (soccer coach) Anticipated Barriers to Discharge: Medical Status Transportation: Private vehicle Plan: Anticipate Malia will return home once medically cleared. CM will connect Malia with the development coach, if she is agreeable. She will have a friend drive her home via private vehicle. She will follow up with her PCP and discharge plan of care. CM will continue to follow. PFSH All Active Problems (Updated 02/02/24 @ 01:38 by Shakeel Greene) Personality disorder, depressive (Chronic) Alcohol withdrawal (Acute) Alcohol withdrawal (Acute) Alcoholic hepatitis (Chronic) Alcohol use disorder, severe, dependence (Chronic) Panic (Acute) Herpes simplex type 1 infection (Acute 12/19/16) Eczema (Chronic) ADHD (attention deficit hyperactivity disorder), combined type (Chronic) Generalized anxiety disorder (Chronic) Depression (Acute) Medical History Presence of intrauterine contraceptive device (IUD) Paragard IUD placed 12/01/23 History of cervical dysplasia December 2022: LSIL/HPV+ -->[place]: pending January 2022: colp --> CIN1 October 2021: LSIL/No HPV October 2020: Normal pap/No HPV Apr 2019: Normal pap/Neg HPV Apr 2018: ASCUS/HPV+ Neoplasm of uncertain behavior, unspecified new pt visit at [facility] [place] Derm 05/24/19. Vanessa Bryan MD History of calculus of kidney during (12/19/16) History of substance abuse (12/19/16) History of acute pyelonephritis Surgical History EGD w/Bx for H.Pylori (07/29/08) [place]ystoscopy (01/05/18[place] [facility] [place] with R ureteral stent placement Family History Father , OD at age 42. Substance abuse Essential hypertension Mother Mental disorder Bipolar d/o Neoplasm small cell neuroendocrine carcinoma Sister Substance abuse Mental disorder Bipolar d/o Brother Substance abuse Mental disorder Bipolar d/o Brother Substance abuse Mental disorder Bipolar d/o Grandmother Neoplasm Breast CA Social History Smoking/Tobacco Use Status: Current every day Tobacco Type: cigarettes and e- cigarettes Tobacco: How many years used: 10 Quit status: has quit before Counseling given: provider counseling Smoking risk assessment performed?: Yes Alcohol Intake: current Alcohol Intake frequency: 3 or more drinks per day Alcohol type: beer, wine and hard liquor Details: Decided to quit drinking. Stopped 01/2019 Drug use: Never Substance use type: marijuana Adopted: No Foster care: No Household members: significant other and children Housing: apartment Number of Children: 2 current occupation: [employer] Pets and animals: Yes (1 dog) What type of physical activity do you participate in: regular exercise Duration: other Details: cleaning Frequency: daily Do you feel safe at home: Yes Do you feel safe in your relationship?: Yes Female Reproductive History Menstrual Duration of menses: 6-7 days control method: copper IUCD History History 2 Para 2 Hx # Term Pregnancies 2 Multiple births 0 Hx # Pregnancies 0 Ectopic pregnancies 0 AB induced 0 Hx Number of Living Children 2 AB spontaneous 0 Past Pregnancies Del. Date GA/Weeks # Preg Succ Route Wgt Sex Labor Lgth Anesth esia Location [facility] 11/20/16 40 vaginal 2920.001 g Female 9 hours regional 12/22/18 40 No vaginal 3685.438 g Female Sudhir Bauer CNM Delivery Date: 11/20/16 Last Updated by: Vale Bauer Delivered at [place] Readmission Within the Past 30 Days Yes or No: Yes Date of First Admission Date of 1st Admission: 01/28/24 Date of this Admission Date of Admission: 02/02/24 This admission was: Through ED Office Visit Since 1st Admission Have you seen your PCP in the office since discharge?: No Describe barriers for scheduling or getting an appointment: Malia left AMA ED visits How many ED visits in the past 12 months: 2 Assessment for Readmission Summary of readmission circumstances, based upon interviews: Malia was admitted to [facility] on 01/28/24 for alcohol withdrawal, and left AMA on 01/30/24 at 22:35, stating that she wanted to see her children. A friend picked her up and drove her home at that time. She presented to the ED on 02/01/24 and was clinically intoxicated. She stated that she left AMA because she felt that she was being abused due to multiple IV's and blood draws. She stated that she is not ready to stop drinking, but she was willing to speak to a development coach on her previous admission, and has expressed interest in an outpatient alcohol counselor. CM will continue to follow. SDOH(Care Management) Screening Will the Patient Participate in the Screening?: Unable to obtain
[2024-02-02] MEDS: Polyethylene Glycol 3350 17 GM PACKET PO (14:06)
[2024-02-02] MEDS: Multivitamin TAB 1 TAB PO (14:10)
[2024-02-02] MEDS: Normal Saline Flush 10 ML SYR IVP ×3 (14:10→23:10)
[2024-02-02] MEDS: Thiamine 100 MG TAB PO (14:10)
[2024-02-02] MEDS: Folic Acid 1 MG TAB PO (14:10)
--- NOTE | 2024-02-02 15:15 | NUR.NOTE ---
Followed up with patient in regards to request for more lorazepam, pt was made aware that she would not be receiving more lorazepam in addition to what she receives for ETOH withdrawl. patient was walking in the room at the time of conversation, this editorial writer inquired if she had any nicotine products on her and she stated that everything was taken from her on admission. patient continues to look out the window concealing her hands. Patient continues to be dismissive with this editorial writer, offering no further complaints.
--- NOTE | 2024-02-02 17:39 | NUR.NOTE ---
reviewed case with MD and the response of the patient in regards to lorazepam response and ETOH withdrawl. MD aware that pt continues to pace and throw tantrums. MD encourages staff to stay the course.
[2024-02-02] MEDS: Nicotine 4 MG GUM CH (17:52)
[2024-02-02] MEDS: Sertraline 50 MG TAB 75 MG PO (20:12)
[2024-02-02] MEDS: hydrOXYzine HCL 50 MG TAB PO (21:44)
[2024-02-02 22:46] LABS: T3,Free 5.2 pg/mL (2.8-5.3)
[2024-02-02 23:00] LABS: T3, Total 150 ng/dL (97-169)
[2024-02-03] VITALS (17 sets, daily range): BP systolic 101–157; BP diastolic 61–103; PULSE 64–111; RESP 14–22; TEMP 36.3–37.2; O2SAT 95–100
[2024-02-03] MEDS: Enoxaparin 40 MG/0.4 ML SYR SC ×2 (02:32→22:21)
[2024-02-03] MEDS: LORazepam 2 MG/ML VIAL IVP ×7 (02:33→22:22)
[2024-02-03] MEDS: Normal Saline Flush 10 ML SYR IVP ×4 (02:36→20:13)
[2024-02-03] MEDS: Multivitamin TAB 1 TAB PO (08:37)
[2024-02-03] MEDS: Thiamine 100 MG TAB PO (08:37)
[2024-02-03] MEDS: Folic Acid 1 MG TAB PO (08:37)
[2024-02-03] MEDS: hydrOXYzine HCL 50 MG TAB PO (08:55)
[2024-02-03] MEDS: Polyethylene Glycol 3350 17 GM PACKET PO (09:45)
--- NOTE | 2024-02-03 12:17 | W.NUTRFU ---
Date of service: 02/03/24 Time of Service: 12:17 Nutrition Note NOTE: brief follow up. Pt has fair to good po intake when alert. Wt loss of almost 3kg documented since admission however standing scale used on admission while majority subsequent weights are bed scale and difference is probably more due to inaccuaracies between scales than actual weight shifts. Pt with no new nutrition needs. still receiving 7 day course of folate and thiamine and gets MVI as well. Will continue to monitor for nutrition status changes. Time Spent in Nutritional Counseling and Treatment: 0
[2024-02-03] MEDS: Acetaminophen 325 MG TAB PO (13:45)
--- NOTE | 2024-02-03 14:19 | PDOC.CMPRO ---
Date of service: 02/03/24 Time of Service: 14:19 Care Management Progress Note Progress Note Text Progress Note Text: Malia was pacing around her room when CM met with her. She had a blanket over her shoulders, stating that she was cold and that she is not feeling well. She presented with a flat affect; her mood fluctuated from calm to very anxious throughout the conversation. CM asked her about her children, as she was stating that she wants to go home to be with them. She stated that it made her feel uncomfortable when this insurance underwriter asked about her children; CM assured her that the intention was to discuss something that makes her happy, to take her mind off the way she is feeling at the time. She expressed gratitude to the nursing staff who have been helping her, and some frustration regarding the rules that have to be followed when she feels that she is ready to have more medication, but she has to wait for an assessment. CM provided Malia with a list of therapists in the community that specialize in substance use and anxiety. Malia had been working on a puzzle; CM offered additional activities which she declined. CM will continue to follow. Discharge Potential Discharge Needs: Other (on [facility] protocol currently) Anticipated Barriers to Discharge: Medical Status Patient/Family Education Needs: Review discharge instructions, discuss Ask Me Three Transportation: Private vehicle Plan: Anticipate Malia will return home once medically cleared. CM will connect Malia with the literacy coach, if she is agreeable. She will have a friend drive her home via private vehicle. She will follow up with her PCP and discharge plan of care. CM will continue to follow. SDOH(Care Management) Screening Will the Patient Participate in the Screening?: Unable to obtain
--- NOTE | 2024-02-03 14:22 | PGE_ITS ---
Date of Service Date of service: 02/03/24 Time of Service: 14:22 Assessment and Plan Assessment and plan (1) Alcohol withdrawal: Start date: 02/02/24 Status: Acute Assessment and plan: -patient presented to ED 3 days after being discharged from [facility] for alcohol withdrawal and was intoxicated in the ED -ED physican wanted to start phenobarb but admitting physican did not feel comfortable without a phenobarb level as patient was given max dose during recent hospitalization -ultimately she was placed on ativan CIWA protocol -while the patient also has PTSD and suspected personality disorder, she was also ordered for 3mg IV ativan PRN for additional anxiety was which promptly discontinued on the morning of 02/02/2024 -since that time patient has been scoring on CIWA in the low teens, just high enough to have PRN ativan administered -additionally, she has been histrionic during hospitalization, as well as uncooperative with nursing staff, most recently removing her IV after being asked not to touch her IV site -As noted above in subjective and exam, patient continues to exhibit highly manipulative behavior, and flat out stating that she will act in a way that she deems necessary in order for her to score high enough on the CIWA score to obtain which she believes is her appropriate treatment regimen of 3 mg of Ativan every 2 hours -This makes treating patient's alcohol withdrawal significantly more difficult, as she is within the window of potentially withdrawing, but with her open laying stating that she is willing to manipulate the CIWA score in order to obtain her Ativan dose as frequently as possible, and will make it hard to appropriately wean her once she is outside the window of potentially withdrawing -will continue CIWA ativan protocol at this time -I am not comfortable transitioning this patient to PO ativan, as the combination of its longer half-life, having left AMA from previous hospitalization, and her rapid return to the hospital while intoxicated puts her at risk of leaving while having longer acting PO in her system and immediately consuming alcohol, which puts her at risk of respiratory failure and Qualifiers: Complication of substance-induced condition: uncomplicated Qualified Code(s): F10.930 - Alcohol use, unspecified with withdrawal, uncomplicated (2) Alcoholic hepatitis: Status: Chronic Assessment and plan: -Slightly exacerbated this admission but not severe. Qualifiers: Ascites presence: without ascites Qualified Code(s): K70.10 - Alcoholic hepatitis without ascites (3) Generalized anxiety disorder: Status: Chronic Assessment and plan: -With associated personality disorder and probable PTSD. Jorgito -g-term patient needs to find a better and safer treatment plan not involving addictive drugs which may be difficult. -Did not appear to be compliant with other therapies as well. -Her life is chaotic and she seems to have continuous stress being the mother of 2 young children with the father threatening to take custody. (4) Personality disorder, depressive: Status: Chronic Assessment and plan: -Patient is very manipulative during discussion to advocate for herself to get what she needs and feels victimized with wandering conversation and at times threatening with anger. -She is not compliant taking her antidepressant which may be exacerbating her symptoms. -She needs to see psychiatry with appropriate counseling and medication adjustment and a present organized manner but this is unlikely with her personality disorder. (5) Alcohol use disorder, severe, dependence: Status: Chronic Assessment and plan: -Patient drinks daily with periods of time drinking up to months but has not been able to quit drinking. -She has reported strong motivation to stop drinking when speaking with admitting physician, however, she has since stated to Care Management that she has no plans to stop drinking (6) ADHD (attention deficit hyperactivity disorder), combined type: Status: Chronic Assessment and plan: -Patient is on the lisdexamfetamine with negative drug screen today. -Compliance may be an issue. -Patient's PCP needs to review treatment plan. Subjective Subjective Interval history since last seen: Patient states she is doing about the same as when she was admitted, but now believes based on timing of her last drink she is actively going through withdrawal and has significant anxiety around developing DTs. Patient had stated to me I know there is a protocol, but if I have to look for wall to score high enough to get 3 mg Ativan every 2 hours as what I will do. Exam Narrative Exam Narrative: Highly anxious disheveled young female sitting up in bed in no acute distress, ANO x 4, heart regular rhythm, lungs clear to auscultation bilaterally, abdomen soft, nontender, nondistended, patient initially appeared, entering the room she was working on a puzzle, but during conversation became visibly anxious, and histrionic, even coming out to the nurses desk after I had left the room to further reiterate that I will be chill if i just get my 3mg ativan every 2 hours Objective Last Vital Signs Temp 99.0 F 02/03/24 09:31 Pulse 82 02/03/24 08:52 Resp 18 02/03/24 08:52 BP 125/99 H 02/03/24 08:52 Pulse Ox 96 02/03/24 08:52 PAWSS Have you Been Recently Intoxicated or Drunk Within the Last 30 days?: Yes Have you Ever Experienced Previous Episodes of Alcohol Withdrawal?: Yes Have you ever Experienced Withdrawal Seizures?: No Have you ever Experienced Delirium Tremens(DT)s?: Yes Have you ever undergone Alcohol Rehabilitation Treatment (i.e, inpt ot outpatient treatment programs)?: Yes Have you ever Experienced Blackouts?: Yes Have you ever Combined Alcohol with other Downers within the last 90 days?: No Have you ever Combined Alcohol with any other Substance of Abuse during the last 90 days?: No Positive Blood Alcohol level on Presentation? [PCS.BAL]: Yes Evidence of Increased Autonomic Activity (i.e. HR>120, tremor, sweating, agitation, nausea)?: Yes Result: 7 Time Spent with Patient Time Spent with Patient: >50 minutes Time was spent: preparing to see the patient(eg.review tests), obtaining and/or reviewing separately otained hiistory, ordering medications,tests, procedures, referring, communicating with other health career services representative, indepentently int erpreting results, counseling the patient and care coordination
--- NOTE | 2024-02-03 18:31 | NUR.NOTE ---
Nursing Note: This RN overheard MD Trejo's discussion with patient during rounding this afternoon. Patient stated that she will do whatever it takes (I will lick the wall if that is what it takes) to score high enough on the CIWA scale to obtain 3 mg Ativan Q 2H. This is what she believes she needs in order to detox from ETOH.
[2024-02-03] MEDS: Sertraline 50 MG TAB 75 MG PO (20:12)
[2024-02-04] VITALS (21 sets, daily range): BP systolic 106–132; BP diastolic 70–87; PULSE 62–107; RESP 16–18; TEMP 36.3–37.1; O2SAT 95–100
[2024-02-04] MEDS: LORazepam 2 MG/ML VIAL IVP ×12 (00:17→23:30)
[2024-02-04] MEDS: Normal Saline Flush 10 ML SYR IVP ×5 (02:30→19:30)
[2024-02-04] MEDS: Acetaminophen 325 MG TAB PO ×2 (05:55→13:07)
[2024-02-04] MEDS: Polyethylene Glycol 3350 17 GM PACKET PO (05:57)
[2024-02-04] MEDS: Thiamine 100 MG TAB PO (07:42)
[2024-02-04] MEDS: Folic Acid 1 MG TAB PO (07:43)
[2024-02-04] MEDS: Multivitamin TAB 1 TAB PO (07:43)
--- NOTE | 2024-02-04 15:58 | CMPROGNOTE_ITS ---
Date of service: 02/04/24 Time of Service: 15:58 Care Management Progress Note Progress Note Text Progress Note Text: Malia continues to present with somewhat of a behavioral component which is complicating MD approach and treatment; refer to MD note for further i nformation. No change to overall plan. Discharge Anticipated Barriers to Discharge: Medical Status (Active withdrawal), SDOH (FLOR, anxiety ) and Treatment delay (CIWA protocol treatment impacted by benzodiazepine started in ED. Phenobarb level not collected. ) Patient/Family Education Needs: Review discharge instructions, discuss Ask Me Three Transportation: Private vehicle Plan: Malia will return home once medically cleared via private vehicle with a friend. She will follow up with her PCP and discharge plan of care. She has declined additional supports offered by CM at this time. SDOH(Care Management) Screening Will the Patient Participate in the Screening?: Unable to obtain Health Related Social Needs Health related social needs details: FLOR Interventions Referrals and interventions: Patient refused.
[2024-02-04 16:20] LABS: PHENOBARBITAL 8.3 ug/mL (15.0-40.0)
--- NOTE | 2024-02-04 17:02 | W.PM.PROGNOT ---
Date of Service Date of service: 02/04/24 Time of Service: 17:02 Assessment and Plan Assessment and plan (1) Alcohol withdrawal: Status: Acute Assessment and plan: -patient presented to ED 3 days after being discharged from [facility] for alcohol withdrawal and was intoxicated in the ED -ED physican wanted to start phenobarb but admitting physican did not feel comfortable without a phenobarb level as patient was given max dose during recent hospitalization -ultimately she was placed on ativan CIWA protocol -while the patient also has PTSD and suspected personality disorder, she was also ordered for 3mg IV ativan PRN for additional anxiety was which promptly discontinued on the morning of 02/02/2024 -since that time patient has been scoring on CIWA in the low teens, just high enough to have PRN ativan administered -additionally, she has been histrionic during hospitalization, as well as uncooperative with nursing staff, most recently removing her IV after being asked not to touch her IV site -As noted above in subjective and exam, patient continues to exhibit highly manipulative behavior, and flat out stating that she will act in a way that she deems necessary in order for her to score high enough on the CIWA score to obtain which she believes is her appropriate treatment regimen of 3 mg of Ativan every 2 hours -This makes treating patient's alcohol withdrawal significantly more difficult, as she is within the window of potentially withdrawing, but with her open laying stating that she is willing to manipulate the CIWA score in order to obtain her Ativan dose as frequently as possible, and will make it hard to appropriately wean her once she is outside the window of potentially withdrawing -will continue CIWA ativan protocol at this time and plan for discharge AM on 02/04 as agreed upon by the patient and noted in the Subjective section of this note -I am not comfortable transitioning this patient to PO ativan, as the combination of its longer half-life, having left AMA from previous hospitalization, and her rapid return to the hospital while intoxicated puts her at risk of leaving while having longer acting PO in her system and immediately consuming alcohol, which puts her at risk of respiratory failure and Qualifiers: Complication of substance-induced condition: uncomplicated Qualified Code(s): F10.930 - Alcohol use, unspecified with withdrawal, uncomplicated (2) Alcoholic hepatitis: Status: Chronic Assessment and plan: -Slightly exacerbated this admission but not severe. Qualifiers: Ascites presence: without ascites Qualified Code(s): K70.10 - Alcoholic hepatitis without ascites (3) Generalized anxiety disorder: Status: Chronic Assessment and plan: -With associated personality disorder and probable PTSD. Jorgito -g-term patient needs to find a better and safer treatment plan not involving addictive drugs which may be difficult. -Did not appear to be compliant with other therapies as well. -Her life is chaotic and she seems to have continuous stress being the mother of 2 young children with the father threatening to take custody. (4) Personality disorder, depressive: Status: Chronic Assessment and plan: -Patient is very manipulative during discussion to advocate for herself to get what she needs and feels victimized with wandering conversation and at times threatening with anger. -She is not compliant taking her antidepressant which may be exacerbating her symptoms. -She needs to see psychiatry with appropriate counseling and medication adjustment and a present organized manner but this is unlikely with her personality disorder. (5) Alcohol use disorder, severe, dependence: Status: Chronic Assessment and plan: -Patient drinks daily with periods of time drinking up to months but has not been able to quit drinking. -She has reported strong motivation to stop drinking when speaking with admitting physician, however, she has since stated to Care Management that she has no plans to stop drinking (6) ADHD (attention deficit hyperactivity disorder), combined type: Status: Chronic Assessment and plan: -Patient is on the lisdexamfetamine with negative drug screen today. -Compliance may be an issue. -Patient's PCP needs to review treatment plan. Subjective Subjective Interval history since last seen: Prolonged conversation was had with the patient in the presence of the patient's nurse Josie Urias. It was explained to the patient that it was difficult to assess her actual alcohol withdrawal score given that she also has superimposed significant anxiety, particularly related to this hospitalization is where her mother had . I also acknowledge the fact that the patient has significant anxiety, and in doing so, patient expressed understanding as to how that would make assessing her alcohol withdrawal difficult. Joint decision was made between myself, nurse Gabrielle, and the patient, that by tomorrow morning she should be outside the window of alcohol withdrawal based on the timing of her last drink and arrival to the hospital, such that it would be appropriate to safely discharge her. Patient did ask about receiving additional doses of Ativan or other medication to help her get through the night, however he was explained that I did not feel comfortable giving additional medication, to which the patient expressed understanding and agreement with the current plan. Exam Narrative Exam Narrative: fatigured but well appearing young female sitting up in bed in no acute distress, ANO x 4, heart regular rhythm, lungs clear to auscultation bilaterally, abdomen soft, nontender, nondistended Objective Last Vital Signs Temp 97.3 F L 02/04/24 14:21 Pulse 70 02/04/24 05:33 Resp 16 02/04/24 12:30 BP 132/82 02/04/24 12:30 Pulse Ox 96 02/04/24 12:30 Laboratory Results - last 24 hr 02/02/24 02/04/24 10:30 15:45 Free T3 pg/mL 5.2 Total T3 150 Phenobarbital 8.3 L PAWSS Have you Been Recently Intoxicated or Drunk Within the Last 30 days?: Yes Have you Ever Experienced Previous Episodes of Alcohol Withdrawal?: Yes Have you ever Experienced Withdrawal Seizures?: No Have you ever Experienced Delirium Tremens(DT)s?: Yes Have you ever undergone Alcohol Rehabilitation Treatment (i.e, inpt ot outpatient treatment programs)?: Yes Have you ever Experienced Blackouts?: Yes Have you ever Combined Alcohol with other Downers within the last 90 days?: No Have you ever Combined Alcohol with any other Substance of Abuse during the last 90 days?: No Positive Blood Alcohol level on Presentation? [PCS.BAL]: Yes Evidence of Increased Autonomic Activity (i.e. HR>120, tremor, sweating, agitation, nausea)?: Yes Result: 7 Time Spent with Patient Time Spent with Patient: >50 minutes Time was spent: preparing to see the patient(eg.review tests), obtaining and/or reviewing separately otained hiistory, ordering medications,tests, procedures, referring, communicating with other health director of healthcare systems, indepentently interpreting results, counseling the patient and care coordination
[2024-02-04] MEDS: Sertraline 50 MG TAB 75 MG PO (19:05)
[2024-02-04] MEDS: Enoxaparin 40 MG/0.4 ML SYR SC (21:14)
[2024-02-05] VITALS (8 sets, daily range): BP systolic 106–131; BP diastolic 64–91; PULSE 56–103; RESP 16–18; TEMP 36.3–36.7; O2SAT 99–100
[2024-02-05] MEDS: LORazepam 2 MG/ML VIAL IVP ×5 (01:27→10:19)
[2024-02-05] MEDS: Normal Saline Flush 10 ML SYR IVP ×2 (03:29→07:44)
--- NOTE | 2024-02-05 06:33 | NUR.NOTE ---
pt OOB and ambulating around unit. DC'D own momitor stating I don;t need this anymore. I;m going home today.
[2024-02-05] MEDS: Thiamine 100 MG TAB PO (07:42)
[2024-02-05] MEDS: Folic Acid 1 MG TAB PO (07:42)
[2024-02-05] MEDS: Multivitamin TAB 1 TAB PO (07:42)
--- NOTE | 2024-02-05 08:10 | DSE_ITS ---
Date of service: 02/05/24 Time of Service: 11:32 DS: Diagnosis Discharge Diagnosis (1) Alcohol withdrawal: Status: Acute Asessment and Plan: Patient initially presented with signs and symptoms concerning for alcohol use disorder and intoxication but expressed a willingness to go through withdrawal during hospitalization. She was put on Ativan CIWA protocol given that she had left AMA from the hospital just 36 hours prior and it was unknown whether or not she had circulating phenobarb in her system, though no level was ordered. She remained on CIWA protocol throughout hospitalization, and was given 3 mg of Ativan almost every 2 hours. However, after discussion with staff and with the patient, there is an understanding that persistently elevated CIWA scores was confounded by patient having severe anxiety related to being hospitalized particularly at this hospital as this is where her mother had recently passed. Joint decision-making was made between myself and the patient, and given that she is now outside the window of potential withdrawal given her last alcoholic drink, it was determined that she was stable for discharge home. (2) Alcoholic hepatitis: Status: Chronic (3) Generalized anxiety disorder: Status: Chronic (4) Personality disorder, depressive: Status: Chronic (5) Alcohol use disorder, severe, dependence: Status: Chronic (6) ADHD (attention deficit hyperactivity disorder), combined type: Status: Chronic Discharge Plan Disposition Patient Disposition: Home Condition: Good Discharge Details Reason For Visit: Alcohol Withdrawal, Anxiety Disorder Admit Date/Time: 02/02/24 00:15 Admit Provider: Shakeel Greene Attending Provider: Shakeel Greene Primary Care Provider: Randolph Harvey Hospital Course Hospital Course: Patient initially presented with signs and symptoms concerning for alcohol use disorder and intoxication but expressed a willingness to go through withdrawal during hospitalization. She was put on Ativan CIWA protocol given that she had left AMA from the hospital just 36 hours prior and it was unknown whether or not she had circulating phenobarb in her system, though no level was ordered. She remained on CIWA protocol throughout hospitalization, and was given 3 mg of A tivan almost every 2 hours. However, after discussion with staff and with the patient, there is an understanding that persistently elevated CIWA scores was confounded by patient having severe anxiety related to being hospitalized particularly at this hospital as this is where her mother had recently passed. Joint decision-making was made between myself and the patient, and given that she is now outside the window of potential withdrawal given her last alcoholic drink, it was determined that she was stable for discharge home. Home Meds and New Rx's Prescriptions: Continued lisdexamfetamine 30 mg capsule See Rx Instructions .ROUTE .COMPLEX Patient Comments: TAKE ONE CAPSULE BY MOUTH EVERY DAY Rx Instructions: Pt reports taking half dose some days sertraline 50 mg tablet 50 mg PO HS Patient Comments: TAKE ONE TABLET BY MOUTH EVERY DAY WITH 25MG TABLET FOR A TOTAL DAILY DOSE OF 75MG sertraline 25 mg tablet 25 mg PO HS Patient Comments: TAKE ONE TABLET BY MOUTH EVERY DAY WITH 50MG TABLET FOR TOTAL DAILY DOSE OF 75MG Discharge Instructions Referrals: Randolph Harvey [Primary Care Provider] - 02/10/24 1:40 pm Activity:: Activity as Tolerated Equipment/Supplies:: No Equipment Needed Diet:: As Tolerated Discharge Orders Discharge Orders: Discharge Order (Routine); Ordered 02/05/24 Ordered By: Andrea Trejo DS: Summary Time Spent with Patient providing and/or coordinating discharge services: Greater than 30 minutes Status at Discharge Functional status at discharge: independent ambulation Overall status at discharge: patient is back to baseline Mental Status: mental status grossly normal Speech and Movement: speech and movement normal Mood: congruent mood Affect: normal affect Quality:SDOH Health Related Social Needs: Health related social needs details FLOR Health related social needs details: FLOR Referrals and interventions: Patient refused. Exam Narrative Exam Narrative: fatigured but well appearing young female sitting up in bed in no acute distress, ANO x 4, heart regular rhythm, lungs clear to auscultation bilaterally, abdomen soft, nontender, nondistended Psych Mental Status: mental status grossly normal Speech and Movement: speech and movement normal Mood: congruent mood Affect: normal affect DS: Data Vitals/I&O Vitals and I&O: Vital Signs Temperature 98.1 F 02/05/24 07:40 Temperature Source Temporal Artery Scan 02/05/24 07:40 Pulse 91 H 02/05/24 07:40 Pulse 56 L 02/05/24 04:00 Respiratory Rate 16 02/05/24 07:40 Respiratory Effort Normal, Non-Labored 02/05/24 04:11 Respiratory Depth Normal 02/05/24 04:11 Respiratory Pattern Normal 02/05/24 04:11 Blood Pressure 106/82 02/05/24 07:40 Blood Pressure Mean 82 02/05/24 04:11 Blood Pressure Position Left Lateral 02/05/24 04:11 Pulse Oximetry 99 02/05/24 07:40 Oxygen Delivery Method Room Air 02/05/24 07:40 Oxygen Flow Rate 0 02/05/24 07:40 Pain Level 2 02/04/24 23:33 Comment Sleeping in NAD 02/03/24 04:32 Intake & Output 02/04/24 02/05/24 02/05/24 17:59 05:59 17:59 Intake Total 720 / 720 240 / 960 Balance 720 / 720 240 / 960 Weight 193 lb 5.526 oz Intake: Oral 720 / 720 240 / 960 Other: Comment Patient using pull-out toilet ad heather prn. pt voiding qs on toilet in room Voiding Methods Toilet Data Completed and Pending Labs on day of discharge: Labs from last 24 hours 02/04/24 02/02/24 15:45 10:30 Free T3 pg/mL 5.2 Total T3 150 Phenobarbital 8.3 L PFSH All Active Problems (Updated 02/02/24 @ 01:38 by Shakeel Greene) Personality disorder, depressive (Chronic) Alcohol withdrawal (Acute) Alcohol withdrawal (Acute) Alcoholic hepatitis (Chronic) Alcohol use disorder, severe, dependence (Chronic) Panic (Acute) Herpes simplex type 1 infection (Acute 12/19/16) Eczema (Chronic) ADHD (attention deficit hyperactivity disorder), combined type (Chronic) Generalized anxiety disorder (Chronic) Depression (Acute) Medical History Presence of intrauterine contraceptive device (IUD) Paragard IUD placed 12/01/23 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 Vanessa Bryan MD History of calculus of kidney during (12/19/16) History of substance abuse (12/19/16) History of acute pyelonephritis Surgical History EGD w/Bx for H.Pylori (07/29/08) [facility] Cystoscopy (01/05/18) [facility] [place] with R ureteral stent placement Family History Father , OD at age 42. Substance abuse Essential hypertension Mother Mental disorder Bipolar d/o Neoplasm small cell neuroendocrine carcinoma Sister Substance abuse Mental disorder Bipolar d/o Brother Substance abuse Mental disorder Bipolar d/o Brother Substance abuse Mental disorder Bipolar d/o Grandmother Neoplasm Breast CA Social History Smoking/Tobacco Use Status: Current every day Tobacco Type: cigarettes and e- cigarettes Tobacco: How many years used: 10 Quit status: has quit before Counseling given: provider counseling Smoking risk assessment performed?: Yes Alcohol Intake: current Alcohol Intake frequency: 3 or more drinks per day Alcohol type: beer, wine and hard liquor Details: Decided to quit drinking. Stopped 01/2019 Drug use: Never Substance use type: marijuana Adopted: No Foster care: No Household members: significant other and children Housing: apartment Number of Children: 2 current occupation: [employer] Pets and animals: Yes (1 dog) What type of physical activity do you participate in: regular exercise Duration: other Details: cleaning Frequency: daily Do you feel safe at home: Yes Do you feel safe in your relationship?: Yes Female Reproductive History Menstrual Duration of menses: 6-7 days control method: copper IUCD History History 2 Para 2 Hx # Term Pregnancies 2 Multiple births 0 Hx # Pregnancies 0 Ectopic pregnancies 0 AB induced 0 Hx Number of Living Children 2 AB spontaneous 0 Past Pregnancies Del. Date GA/Weeks # Preg Succ Route Wgt Sex Labor Lgth Anesth esia Location Prov [facility] 11/20/16 40 vaginal 6 lb 7 oz Female 9 hours regional 12/22/18 40 No vaginal 8 lb 2 oz Female Vale Bauer CNM Delivery Date: 11/20/16 Last Updated by: Vale Bauer Delivered at [facility] Time Spent with Patient Time Spent with Patient: <45 minutes Time was spent: preparing to see the patient(eg.review tests), obtaining and/or reviewing separately otained hiistory, ordering medications,tests, procedures, referring, communicating with other health live in caregiver, indepentently interpreting results, counseling the patient and care coordination
--- NOTE | 2024-02-05 10:55 | PDOC.CMDIS ---
Date of service: 02/05/24 Time of Service: 10:58 LACE Index Scoring Tool Questions: Length of Stay (in days): 3 Was the patient admitted via the E.D.?: Yes E.D. Visits: 2 Answers: Total Score: 8 Risk of Readmission: Low Risk Care Management Discharge Plan Reason for Hospitalization: alcohol withdrawal, anxiety Discharge Plan: Malia will return home with no new services. CM provided a return to work letter to Malia, which verified the days that she was hospitalized. CM also provided additional resources for recovery. Her friend will be driving her home, and she stated that she will have support over the weekend to remain sober, and that she plans to contact her therapist and reconnect. She will follow up with her PCP and discharge plan of care. Patient/Family Education Needs: Review discharge instructions and limitations, discussion of self care needs including ask me three. SDOH Health Related Social Needs: Health related social needs details FLOR Health related social needs details: FLOR Referrals and interventions: Patient refused.
== END 2024-02-05 12:05 | disposition home or self-care (01) | DRG 897 ==
LOC: ER 02-02 00:34 → ICU 02-02 00:40
PROVIDERS: Family Medicine; Admitting Provider Family Medicine; Emergency Provider Emergency Medicine; PCP Student in an Organized Health Care Education/Training Program; Visit Provider Family Medicine
DX: F10.230 Alcohol dependence with withdrawal, uncomplicated (principal); K70.10 Alcoholic hepatitis without ascites; F90.2 Attention-deficit hyperactivity disorder, combined type; Z91.198 Patient's noncompliance with other medical treatment and regimen for other reason; L30.9 Dermatitis, unspecified; F17.210 Nicotine dependence, cigarettes, uncomplicated; F10.229 Alcohol dependence with intoxication, unspecified; Y90.8 Blood alcohol level of 240 mg/100 ml or more; F34.1 Dysthymic disorder; F41.1 Generalized anxiety disorder
CPT/HCPCS: 00123; 36415; 80053; 80307; 81025; 85027; 96374; 99285; J1650; 80184; 80320; 83735; 84100; 84439; 84443; 84480; 84481; 85025; 85610; 99223; 99233; 99238; J2060; J2405; J3490

== ENCOUNTER 2024-02-07 17:45 | Emergency (ER) | payer BC, SELFPAY ==
[2024-02-07 17:46] VITALS: BP 115/87; PULSE 129; RESP 14; TEMP 36.5; O2SAT 97
--- NOTE | 2024-02-07 18:21 | ED.GENADUL_ITS ---
Discharge Plan Disposition Patient Disposition: Against Medical Advice Condition: Stable Discharge Details Chief Complaint: ETOHWithdr Clinical Impression: Anxiety, Alcohol use disorder Primary Care Provider: Randolph Harvey ED Provider: Scott Pham Home Meds and New Rx's Prescriptions: No Action lisdexamfetamine 30 mg capsule See Rx Instructions .ROUTE .COMPLEX Patient Comments: TAKE ONE CAPSULE BY MOUTH EVERY DAY Rx Instructions: Pt reports taking half dose some days sertraline 50 mg tablet 50 mg PO HS Patient Comments: TAKE ONE TABLET BY MOUTH EVERY DAY WITH 25MG TABLET FOR A TOTAL DAILY DOSE OF 75MG sertraline 25 mg tablet 25 mg PO HS Patient Comments: TAKE ONE TABLET BY MOUTH EVERY DAY WITH 50MG TABLET FOR TOTAL DAILY DOSE OF 75MG Discharge Data Discharge Date/Time-TO BE ENTERED AT DEPARTURE: 02/07/24 18:19 HPI General Date/Time Provider Initiated Documentation: 02/07/24 17:51 . HPI Narrative: 33-year-old female with a past medical history of depression, ADHD, and notable chronic alcohol use presents for evaluation. Patient was initially here on 01/28/2024, she was having notable DTs, she was admitted for withdrawal, but left AMA after a day or so of therapy. She went home and drank again. She then returned on 02/01/2024 and was readmitted again, she completed her full admission course for detox and was discharged on 02/05/2024. Patient states that she immediately went home and drank alcohol again. She states that she called an [id number] rehab facility and they are trying to get her a rehab facility to stay at but recommended she come to the ER for detox. She does not describe how much she has been drinking but does admit to continuing to drink. She was brought here by her brother. She states that she feels extremely anxious secondary to the of her mother in the hospital. She denies any suicidal or homicidal ideations. She has no other complaints at this time. Related Data Home Medications Medication Instructions Recorded Confirmed lisdexamfetamine 30 mg capsule See Rx Instructions .Route .COMPLEX 10/22/23 02/07/24 sertraline 25 mg tablet 25 mg PO HS 02/02/24 02/07/24 sertraline 50 mg tablet 50 mg PO HS 02/02/24 02/07/24 Allergies Allergy/AdvReac Type Severity Reaction Status Date / Time Penicillins AdvReac Intermediate Hives Verified 02/07/24 17:51 General Stated Complaint: ETOHWithdr LETITIA: 2 Review of Systems All systems reviewed & are unremarkable except as noted in HPI and below Exam Narrative Exam Narrative: 1.Const: Well-nourished, Well-developed, appearing stated age 2.Eyes: PERRL, no conjunctival injection, and symmetrical lids. 3.ENT: Atraumatic external nose and ears. Moist MM. Neck: Symmetric, trachea midline, No thyromegaly. 4.CVS: +S1/S2, No murmurs or gallops. Peripheral pulses 2+ and equal in all extremities. Brisk capillary refill in all extremities. 5.RESP: Unlabored respiratory effort. Clear to auscultation bilaterally. No wheezes rales or rhonchi 6.GI: Soft, Nontender/Nondistended, No hepatosplenomegaly. No guarding or rebound. 7.MSK: Normocephalic/Atraumatic, Extremities w/o deformity or ttp No cyanosis or clubbing, Normal movement of all extremities. No hand shaking. 8.Skin: Warm, Dry. No rashes or lesions. 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 Sensation grossly intact, no focal neurologic deficits. 10.Psych: (AAO) x3. Notably anxious appearing. Course Vital Signs Vital signs: Vital Signs Temperature 36.5 C 02/07/24 17:46 Pulse 129 H 02/07/24 17:46 Respiratory Rate 14 02/07/24 17:46 Blood Pressure 115/87 02/07/24 17:46 Pulse Oximetry 97 02/07/24 17:46 Temperature 36.5 C 02/07/24 17:46 Temperature Source Temporal Artery Scan 02/07/24 17:46 Pulse 129 H 02/07/24 17:46 Respiratory Rate 14 02/07/24 17:46 Respiratory Effort Normal, Non-Labored 02/07/24 18:17 Blood Pressure 115/87 02/07/24 17:46 Blood Pressure Position Sitting 02/07/24 17:46 Pulse Oximetry 97 02/07/24 17:46 Oxygen Delivery Method Room Air 02/07/24 17:46 Oxygen Flow Rate 0 02/07/24 17:46 Pain Level 0 06/22/24 17:46 Medical Decision Making 33-year-old female with a past medical history of depression, ADHD, and notable chronic alcohol use presents for evaluation. Patient was initially here on 01/28/2024, she was having notable DTs, she was admitted for withdrawal, but left AMA after a day or so of therapy. She went home and drank again. She then returned on 02/01/2024 and was readmitted again, she completed her full admission course for detox and was discharged on 02/05/2024. Patient states that she immediately went home and drank alcohol again. She states that she called an [id number] rehab facility and they are trying to get her a rehab facility to stay at but recommended she come to the ER for detox. She does not describe how much she has been drinking but does admit to continuing to drink. She was brought here by her brother. She states that she feels extremely anxious secondary to the of her mother in the hospital. She denies any suicidal or homicidal ideations. She has no other complaints at this time. Physical exam demonstrates an anxious appearing female, she has no visible hand tremor. I had a long discussion with the patient about the scenarios that have occurred, and what her goals truly are. She states that she has reached out to a alcohol rehabilitation center that [place] state, they do not have a bed for her available yet, but would be willing to take her and recommend that she go to detox first. As the patient recently finished her complete detox course here at the hospital 2 days ago, and has not had a prolonged multiday or weeklong episode of persistent intoxication since then I do not see an indication for additional phenobarbital treatment. I do feel that she may be a candidate for outpatient chlordiazepoxide as she otherwise seems stable and not demonstrating evidence of fulminant DTs. That being said the patient's true danger zone appears to be as soon as she goes home and is alone. She admits to me that she immediately just wants to have a drink then and immediately starts taking drinks. She already has a prescription for disulfiram at home, but she states that every time she tries to take it she decides not to and instead's goes and drinks alcohol. I discussed with her that I feel that she would have a very high risk for relapse if she does not have appropriate accountability. I requested to call her [id number], her previous significant other who is now watching her child, I requested to call her brother, but the patient refused to allow me to contact these individuals. She states that no one will help me, I do not want you calling any of them, they will not help me. I offered to josefina tipton [facility] and our recovery coaches. The patient began yelling and stating that no one is going to help me, what are they going to do, show up at my house and watch me? During this conversation the patient stated that she just wanted to leave and was not going to stay any longer. She then got up, took her purse and walked out the door to the parking lot where her brother was there to pick her up. As the patient was walking out I followed with her and let her know that I will still be contacting these agencies to help get her assistance help. I also let her know that she can return anytime tonight and will continue this process. Patient understands this but still left against my medical advice. Patient is of a appropriate age to make decisions. The patient is of sound mind, appears cl inically sober on my current assessment, and has capacity to make decisions by my clinical exam. We have provided options for treatment and discussed the risks and benefits of these options and refusing these options, including and disability specific to the patient's pathology. Patient is able to discuss the risks and benefits and alternatives of treatment and refusing treatment. We have tried to involve the patient's family or support group that was present here or by contacting them on the phone. The patient chooses to leave before evaluation and treatment is complete AGAINST MEDICAL ADVICE. I did attempt to call the recovery coaches, currently no one will answer there. I did call mental health services and requested that they follow-up with the patient. Quality:SDOH Health Related Social Needs: Health related social needs details FLOR PFSH All Active Problems (Updated 02/07/24 @ 23:35 by Scott Pham DO) Alcohol use disorder (Acute) Anxiety (Chronic) Personality disorder, depressive (Chronic) Alcohol withdrawal (Acute) Alcoholic hepatitis (Chronic) Alcohol use disorder, severe, dependence (Chronic) Panic (Acute) Herpes simplex type 1 infection (Acute 12/19/16) Eczema (Chronic) ADHD (attention deficit hyperactivity disorder), combined type (Chronic) Generalized anxiety disorder (Chronic) Depression (Acute) Medical History Presence of intrauterine contraceptive device (IUD) Paragard IUD placed 12/01/23 History of cervical dysplasia December 2022: LSIL/HPV+ -->[place]: pending January 2022: colp --> CIN1 October 2021: LSIL/No HPV October 2020: Normal pap/No HPV Apr 2019: Normal pap/Neg HPV Apr 2018: ASCUS/HPV+ Neoplasm of uncertain behavior, unspecified new pt visit at [facility] [place] 05/24/19. Vanessa Bryan MD History of calculus of kidney during (12/19/16) History of substance abuse (12/19/16) History of acute pyelonephritis Surgical History EGD w/Bx for H.Pylori (07/29/08) [facility] Cystoscopy (01/05/18[place] [facility]teral [place] Family History Father , OD at age 42. Substance abuse Essential hypertension Mother Mental disorder Bipolar d/o Neoplasm small cell neuroendocrine carcinoma Sister Substance abuse Mental disorder Bipolar d/o Brother Substance abuse Mental disorder Bipolar d/o Brother Substance abuse Mental disorder Bipolar d/o Grandmother Neoplasm Breast CA Social History Smoking/Tobacco Use Status: Current every day Tobacco Type: cigarettes and e-cigarettes Tobacco: How many years used: 10 Quit status: has quit before Counseling given: provider counseling Smoking risk assessment performed?: Yes Alcohol Intake: current Alcohol Intake frequency: 3 or more drinks per day Alcohol type: beer, wine and hard liquor Details: Decided to quit drinking. Stopped 01/2019 Drug use: Never Substance use type: marijuana Adopted: No Foster care: No Household members: significant other and children Housing: apartment Number of Children: 2 current occupation: [employer] Pets and animals: Yes (1 dog) What type of physical activity do you participate in: regular exercise Duration: other Details: cleaning Frequency: daily Do you feel safe at home: Yes Do you feel safe in your relationship?: Yes Female Reproductive History Menstrual Duration of menses: 6-7 days control method: copper IUCD History History 2 Para 2 Hx # Term Pregnancies 2 Multiple births 0 Hx # Pregnancies 0 Ectopic pregnancies 0 AB induced 0 Hx Number of Living Children 2 AB spontaneous 0 Past Pregnancies Del. Date GA/Weeks # Preg Succ Route Wgt Sex Labor Lgth Anesth esia Location [facility] 11/20/16 40 vaginal 2920.001 g Female 9 hours regional 12/22/18 40 No vaginal 3685.438 g Female Sudhir Bauer CNM Delivery Date: 11/20/16 Last Updated by: Vale Bauer Delivered at [facility] Have you Been Recently Intoxicated or Drunk Within the Last 30 days?: Unable to Obtain Have you Ever Experienced Previous Episodes of Alcohol Withdrawal?: Unable to Obtain Have you ever Experienced Withdrawal Seizures?: Unable to Obtain Have you ever Experienced Delirium Tremens(DT)s?: Unable to Obtain Have you ever undergone Alcohol Rehabilitation Treatment (i.e, inpt ot outpatie nt treatment programs)?: Unable to Obtain Have you ever Experienced Blackouts?: Unable to Obtain Have you ever Combined Alcohol with other Downers within the last 90 days?: Unable to Obtain Have you ever Combined Alcohol with any other Substance of Abuse during the last 90 days?: Unable to Obtain Positive Blood Alcohol level on Presentation? [PCS.BAL]: Unable to Obtain Evidence of Increased Autonomic Activity (i.e. HR>120, tremor, sweating, agitation, nausea)?: Unable to Obtain
--- NOTE | 2024-02-07 20:05 | NUR.NOTE ---
Per Dr. Pham, put patient on referral list for [facility]. [facility] has been out of service, but we will follow up tomorrow to see if they are available or not.We will reach out to them if they are available. Patient left AMA.Nursing Note:
--- NOTE | 2024-02-07 20:29 | NUR.NOTE ---
Tried paging the recovery worker bellperson to provide the patient information at 2024, did not receive a call back. Will have day shift elementary secretary try reaching out tomorrow.Nursing Note:
--- NOTE | 2024-02-08 04:44 | NUR.NOTE ---
Will put referral in the healthcare sales representative's box for follow up assistance since nobody from [facility] called back.Nursing Note:
--- NOTE | 2024-02-08 10:13 | NUR.NOTE ---
Nursing Note: Spoke with Kali from [facility]. He is aware of this pT and will follow up.
== END 2024-02-07 18:19 | disposition left against medical advice (07) ==
PROVIDERS: Emergency Provider Student in an Organized Health Care Education/Training Program; PCP Student in an Organized Health Care Education/Training Program
DX: F41.1 Generalized anxiety disorder (principal); F10.20 Alcohol dependence, uncomplicated; F17.200 Nicotine dependence, unspecified, uncomplicated; Z53.29 Procedure and treatment not carried out because of patient's decision for other reasons
CPT/HCPCS: 99282; 99283

== ENCOUNTER 2024-02-09 19:48 | Inpatient (IN) | payer BC, SELFPAY ==
[2024-02-09] VITALS (8 sets, daily range): BP systolic 137–167; BP diastolic 89–92; PULSE 87–119; RESP 16–26; TEMP 36.7; O2SAT 98
--- NOTE | 2024-02-09 20:41 | ED.GENADUL_ITS ---
Discharge Plan Discharge Details Chief Complaint: ETOHWithdr Clinical Impression: Alcohol use disorder, severe, dependence Primary Care Provider: Randolph Harvey ED Provider: Margarito Vasquez Home Meds and New Rx's Prescriptions: No Action lisdexamfetamine 30 mg capsule 50 mg PO Patient Comments: TAKE ONE CAPSULE BY MOUTH EVERY DAY Rx Instructions: Pt reports taking half dose some days sertraline 50 mg tablet 50 mg PO HS Patient Comments: TAKE ONE TABLET BY MOUTH EVERY DAY WITH 25MG TABLET FOR A TOTAL DAILY DOSE OF 75MG sertraline 25 mg tablet 25 mg PO HS Patient Comments: TAKE ONE TABLET BY MOUTH EVERY DAY WITH 50MG TABLET FOR TOTAL DAILY DOSE OF 75MG disulfiram 250 mg tablet 250 mg Patient Comments: TAKE ONE TABLET BY MOUTH EVERY DAY HPI General Date/Time Provider Initiated Documentation: 02/09/24 20:41 . HPI Narrative: MDM This is an overall well-appearing initially tachycardic and hypertensive 33-year-old normothermic female with concerns for acute withdrawal from ethanol given prior history of withdrawal. No pain out of proportion to suggest necrotizing soft tissue infection. No dysuria no frequency so doubt UTI. Not altered to suggest encephalitis. Patient does endorse chest pain however ECG is reassuring against ACS and she has a negative troponin. No tearing quality to chest pain to suggest aortic dissection. No fevers to suggest pneumonia however will obtain chest x-ray. Not hypotensive nor dialysis patient so doubt tamponade. No rash to chest to suggest zoster. Patient has not been vomiting so my suspicion for esophageal rupture is low. No trauma so doubt pneumothorax. No shortness of breath or hypoxia to suggest PE. No positional component no recent URI symptoms to suggest pericarditis. 9:56 PM Markedly elevated ethanol level. Comprehensive metabolic panel showing mild anion gap but no HAILEY. No acute electrolyte abnormalities. Mild bump in ALT and AST appears improved compared to prior. Negative troponin. Negative hCG. CBC lacks anemia thrombocytopenia leukocytosis. Patient refused chest x-ray. 10:15 PM I offered the patient discharge for detoxification using chlordiazepoxide at home. She reported that she did not feel safe going home as she felt that she was going to drink. Her blood pressure improved and is now 137/89. Pulse is 87. I spoke to Dr. Greene who agreed graciously to accept the patient for hospitalization. 11:48 PM I met with the patient again. I explained that Dr. Greene was going to place orders for hospitalization and treat patient with phenobarbital but not benzodiazepines. Patient looks forward to being hospitalized. Chronic conditions affecting the care of the patient: Alcohol abuse History obtained from an outside historian: N/A External record review: N/A Diagnostic interpretations performed by me: Per my independent interpretation EKG shows: Narrow complex normal sinus rhythm at a rate of 93. Normal axis. Intervals within normal limits. Low voltage limb leads. No ST segment abnormalities. T wave flattening in lead III. No acute injury pattern. No prior for comparison. ]Medications: Chlordiazepoxide Social determinants of health affecting disposition: N/A Management discussed with: Dr. Greene Treatment/interventions considered: Discharge but deferred Response to therapies provided: N/A HPI This is a 33-year-old female with a history of alcohol withdrawal and alcohol use disorder arrived to the emergency department via private vehicle requesting detoxification. Patient reports that she has arranged for outpatient detoxification in [place]. She reports drinking 15-25 beers per day and has a history of withdrawal requiring hospitalizations. She has never been intubated. She denies any recent trauma. She endorses central chest pain that is not radiating. She is a daily drinker. She has not taken any recent falls. She also smokes every day. Denies any other prescription drugs. Chest pain does not radiate. Is not associated with diaphoresis. It is not positional nor pleuritic. Exam General: Well-appearing in no acute distress speaking in complete sentences. Head: Normocephalic, atraumatic. Eye: Extraocular eye movements intact. No conjunctival injection. No scleral icterus. Ear, nose, mouth, throat: Grossly normal inspection. Normal voice, handling secretions normally. No tongue fasciculations. Neck: Trachea midline. Cardiovascular: Well-perfused distal extremities. Regular rate and rhythm Respiratory: Nonlabored respiration. Clear lungs Gastrointestinal: Nondistended abdomen. Soft nontender Musculoskeletal: No edema. Moving all 4 extremities spontaneously. Skin: Normal for age and race, grossly normal temperature and turgor. No acute rash. Neurologic: Alert and appropriate, no apparent acute deficits. GCS 15. Psychiatric: Mood and manner are appropriate. Grooming and personal hygiene are appropriate. Related Data Home Medications Medication Instructions Recorded Confirmed lisdexamfetamine 30 mg capsule 50 mg PO 10/22/23 02/07/24 sertraline 25 mg tablet 25 mg PO HS 02/02/24 02/09/24 sertraline 50 mg tablet 50 mg PO HS 02/02/24 02/09/24 disulfiram 250 mg tablet 250 mg 02/09/24 Allergies Allergy/AdvReac Type Severity Reaction Status Date / Time Penicillins AdvReac Intermediate Hives Verified 02/09/24 23:40 General Stated Complaint: ETOHWithdr LETITIA: 3 Course Vital Signs Vital signs: Vital Signs Temperature 36.7 C 02/09/24 19:54 Pulse 119 H 02/09/24 19:54 Respiratory Rate 16 02/09/24 19:54 Blood Pressure 167/92 H 02/09/24 19:54 Pulse Oximetry 98 02/09/24 19:54 Temperature 36.7 C 02/09/24 19:54 Temperature Source Tympanic 02/09/24 19:54 Pulse 119 H 02/09/24 19:54 Respiratory Rate 16 02/09/24 19:54 Blood Pressure 167/92 H 02/09/24 19:54 Blood Pressure Position Sitting 02/09/24 19:54 Pulse Oximetry 98 02/09/24 19:54 Oxygen Delivery Method Room Air 02/09/24 19:54 Oxygen Flow Rate 0 02/09/24 19:54 Pain Level 0 02/09/24 19:54 Medical Decision Making Quality:SDOH Health Related Social Needs: Health related social needs details FLOR PFSH All Active Problems (Updated 02/09/24 @ 22:15 by Margarito Vasquez MD) Alcohol use disorder (Acute) Anxiety (Chronic) Personality disorder, depressive (Chronic) Alcohol withdrawal (Acute) Alcoholic hepatitis (Chronic) Alcohol use disorder, severe, dependence (Chronic) Panic (Acute) Herpes simplex type 1 infection (Acute 12/19/16) Eczema (Chronic) ADHD (attention deficit hyperactivity disorder), combined type (Chronic) Generalized anxiety disorder (Chronic) Depression (Acute) Medical History Presence of intrauterine contraceptive device (IUD) Paragard IUD placed 12/01/23 History of cervical dysplasia December 2022: LSIL/HPV+ -->[place]: pending January 2022: colp --> CIN1 October 2021: LSIL/No HPV October 2020: Normal pap/No HPV Apr 2019: Normal pap/Neg HPV Apr 2018: ASCUS/HPV+ Neoplasm of uncertain behavior, unspecified new pt visit at [facility] Derm 05/24/19. Vanessa Bryan MD History of calculus of kidney during (12/19/16) History of substance abuse (12/19/16) History of acute pyelonephritis Surgical History EGD w/Bx for H.Pylori (07/29/08) [facility] Cystoscopy (01/05/18) [facility] [place] with R ureteral stent placement Family History Father , OD at age 42. Substance abuse Essential hypertension Mother Mental disorder Bipolar d/o Neoplasm small cell neuroendocrine carcinoma Sister Substance abuse Mental disorder Bipolar d/o Brother Substance abuse Mental disorder Bipolar d/o Brother Substance abuse Mental disorder Bipolar d/o Grandmother Neoplasm Breast CA Social History Smoking/Tobacco Use Status: Current every day Tobacco Type: cigarettes and e- cigarettes Tobacco: How many years used: 10 Quit status: has quit before Counseling given: provider counseling Smoking risk assessment performed?: Yes Alcohol Intake: current Alcohol Intake frequency: 3 or more drinks per day Alcohol type: beer, wine and hard liquor Details: Decided to quit drinking. Stopped 01/2019 Drug use: Never Substance use type: marijuana Adopted: No Foster care: No Household members: significant other and children Housing: apartment Number of Children: 2 current occupation: [employer] Pets and animals: Yes (1 dog) What type of physical activity do you participate in: regular exercise Duration: other Details: cleaning Frequency: daily Do you feel safe at home: Yes Do you feel safe in your relationship?: Yes Female Reproductive History Menstrual Duration of menses: 6-7 days control method: copper IUCD History History 2 Para 2 Hx # Term Pregnancies 2 Multiple births 0 Hx # Pregnancies 0 Ectopic pregnancies 0 AB induced 0 Hx Number of Living Children 2 AB spontaneous 0 Past Pregnancies Del. Date GA/Weeks # Preg Succ Route Wgt Sex Labor Lgth Anesth esia Location Prov [facility] 11/20/16 40 vaginal 2920.001 g Female 9 hours regional 12/22/18 40 No vaginal 3685.438 g Female Sudhir Bauer CNM Delivery Date: 11/20/16 Last Updated by: Vale Bauer Delivered at [place]
--- NOTE | 2024-02-09 20:45 | RT.EKG_ITS ---
APPROVED REPORT Exam: Resting ECG Reason for Exam: chest pain Patient Location: E HR:93 bpm ECG Measurements Heart Rate 93 AXIS TX 130 P 37 QRSd 86 QRS 28 QT 348 T 20 QTc 434 Conclusion Sinus rhythm...normal P axis, V-rate 60- 99 Low voltage, precordial leads...precordial leads <1.0mV Narrow complex normal sinus rhythm at a rate of 93. Normal axis. Intervals within normal limits. L ow voltage limb leads. No ST segment abnormalities. T wave flattening in lead III. No acute injury pattern. No prior for comparison.
[2024-02-09 21:14] LABS: Abs Immature Grans 0.04 10^3/uL (0.0-0.06); Absolute Basophil Count 0.12 10^3/uL (0.0-0.2); Absolute Eosinophil Count 0.18 10^3/uL (0.0-0.7); Absolute Lymphocyte Count 1.82 10^3/uL (1.2-3.4); Absolute Monocyte Count 0.62 10^3/uL (0.1-0.8); Absolute Neutrophil Count 6.02 10^3/uL (1.2-6.7); Basophils % 1.4 %; HCT 42.8 % (36.0-46.0); HGB 14.1 g/dL (11.2-15.7); Immature Grans % 0.5 %; Lymphocytes % 20.7 %; MCH 31.3 pg (27.0-33.0); MCHC 32.9 % (32.0-36.0); MCV 95 fL (80-95); MPV 9.2 fL (8.0-11.0); Neutrophils % 68.4 %; Platelet Count 441 10^3/uL (130-400); RBC 4.51 10^6/uL (3.93-5.22); RDW 13.5 % (11.7-14.6); RDW-SD 47.7 fL
[2024-02-09] MEDS: chlordiazePOXIDE 25 MG CAP PO (21:16)
[2024-02-09] MEDS: Normal Saline 500 ML IV (21:16)
[2024-02-09 21:31] LABS: HCG Qual (Serum) Negative
[2024-02-09 21:46] LABS: ALT 81 U/L (14-59); AST 45 U/L (15-37); Albumin 4.1 g/dL (3.4-5.0); Alkaline Phosphatase 83 U/L (46-116); Anion Gap 12.3 mmol/L (3-11); BUN 7 mg/dL (7-18); Bilirubin, Total 0.18 mg/dL (0.2-1.0); CO2 27.7 mmol/L (21.0-32.0); CREATININE 0.7 mg/dL (0.55-1.02); Calcium 8.7 mg/dL (8.5-10.1); Chloride 104 mmol/L (98-107); Estimated GFR 118.51 (mL/min/1.73m2); Glucose 95 mg/dL (74-106); Potassium 3.5 mmol/L (3.5-5.1); Sodium 144 mmol/L (136-145); Total Protein 7.8 g/dL (6.4-8.2); Troponin I < 50 ng/L (< or =60)
[2024-02-09 21:52] LABS: ETHANOL BLOOD 377.3 mg/dL (<10)
--- NOTE | 2024-02-09 23:51 | HPE_ITS ---
Date of service: 02/09/24 Time of Service: 23:52 Assessment and Plan Assessment and plan (1) Alcohol withdrawal: Status: Acute Assessment and plan: This is a 33-year-old lady who still is intoxicated with fearful of withdrawal wanting help with medical treatment for alcohol withdrawal wanting to do outpatient rather than inpatient alcohol rehab as she always changes her mind though she has had arrangements for inpatient alcohol detoxification in [place]. 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 He will be admitted for department of protocol for alcohol withdrawal but that usually does not stay for full treatment and leaves A. She seems to have slight insight into outpatient local treatment so she can stay home with her children but she states she cannot miss work which is problematic. She does want a note for her work that she has missed work recently and she also is working on having a FMLA form filled out so that she can go to [place] for inpatient detoxification. She is a full code. Qualifiers: Complication of substance-induced condition: uncomplicated Qualified Code(s): F10.930 - Alcohol use, unspecified with withdrawal, uncomplicated (2) Alcohol use disorder: Status: Chronic Assessment and plan: Patient continues to drink heavily each time she is to return home. Her insight is poor and that she thinks she can do it on her own. She does have extreme anxiety and poor coping with little support systems. She is noncompliant with her medical therapy for ADHD and depression. (3) Alcoholic hepatitis: Status: Chronic Assessment and plan: Stable but persistent. Patient needs Dr. Lopez. Qualifiers: Ascites presence: without ascites Qualified Code(s): K70.10 - Alcoholic hepatitis without ascites (4) Personality disorder, depressive: Status: Chronic Assessment and plan: Patient should receive more intense psychiatric care but is seeking this help or able to comply if scheduled. (5) Anxiety: Status: Chronic Assessment and plan: Patient has multiple childhood traumas and subs abuse which is mostly self treatment of her chronic anxiety. She would do well with counseling or intense psychiatric care. This may help her with her alcoholism and cessation of alcohol use and abuse. She does not want to be with her children but cannot change behavior. 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 She drinks 50-25 beers a day and has had multiple hospitalizations wishing to quit drinking but always goes home and drinks. She does have an abuse at home but does not take it and it feels better when she is drinking with a lot of emotional pain and loss of her mother who did pass away in this hospital. She states she is very anxious about it in his hospital each time she comes in for inpatient treatment for alcohol withdrawal. She does feel better with benzodiazepine but actually is not compliant with her outpatient medical therapy for ADHD and depression which may not be helping her situation. She did have some chest pain reported in the ED but this was not consequence with negative cardiac evaluation. She is overweight and deconditioned. She has a lot emotional turmoil in her life with the father of her children causing stress and the patient always did that she went to the home to her children when she is hospitalized and usually signing out AMA. She is agreeable to stay with them about protocol today but is vaping in her room and already talked about going home to be with her children. She states that I can do it on my own. Insight is poor. She is a full code. The patient does have chronically elevated liver function test with alcohol hepatitis and normal PT/INR Electrolytes are not abnormal this hospitalization. Review of Systems Narrative: 13 point review of systems otherwise unrevealing or stable. Patient is overweight. PFSH All Active Problems (Updated 02/09/24 @ 23:53 by Shakeel Greene) Alcohol use disorder (Chronic) Anxiety (Chronic) Personality disorder, depressive (Chronic) Alcohol withdrawal (Acute) Alcoholic hepatitis (Chronic) Alcohol use disorder, severe, dependence (Chronic) Panic (Acute) Herpes simplex type 1 infection (Acute 12/19/16) Eczema (Chronic) ADHD (attention deficit hyperactivity disorder), combined type (Chronic) Generalized anxiety disorder (Chronic) Depression (Acute) Medical History Presence of intrauterine contraceptive device (IUD) Paragard IUD placed 12/01/23 History of cervical dysplasia December 2022: LSIL/HPV+ -->[place]: pending January 2022: colp --> CIN1 October 2021: LSIL/No HPV October 2020: Normal pap/No HPV Apr 2019: Normal pap/Neg HPV Apr 2018: ASCUS/HPV+ Neoplasm of uncertain behavior, unspecified new pt visit at [facility] [place] [place] Derm 05/24/19. Vanessa Bryan MD History of calculus of kidney during (12/19/16) History of substance abuse (12/19/16) History of acute pyelonephritis Surgical History EGD w/Bx for H.Pylori (07/29/08) [facility] Cystoscopy (01/05/18) [facility] [place] Urology with R ureteral stent placement Family History Father , OD at age 42. Substance abuse Essential hypertension Mother Mental disorder Bipolar d/o Neoplasm small cell neuroendocrine carcinoma Sister Substance abuse Mental disorder Bipolar d/o Brother Substance abuse Mental disorder Bipolar d/o Brother Substance abuse Mental disorder Bipolar d/o Grandmother Neoplasm Breast CA Social History Smoking/Tobacco Use Status: Current every day Tobacco Type: cigarettes and e- cigarettes Tobacco: How many years used: 10 Quit status: has quit before Counseling given: provider counseling Smoking risk assessment performed?: Yes Alcohol Intake: current Alcohol Intake frequency: 3 or more drinks per day Alcohol type: beer, wine and hard liquor Details: Decided to quit drinking. Stopped 01/2019 Drug use: Never Substance use type: marijuana Adopted: No Foster care: No Household members: significant other and children Housing: apartment Number of Children: 2 current occupation: [employer] Pets and animals: Yes (1 dog) What type of physical activity do you participate in: regular exercise Duration: other Details: cleaning Frequency: daily Do you feel safe at home: Yes Do you feel safe in your relationship?: Yes Female Reproductive History Menstrual Duration of menses: 6-7 days control method: copper IUCD History History 2 2 Para 2 Hx # Term Pregnancies 2 Multiple births 0 Hx # Pregnancies 0 Ectopic pregnancies 0 AB induced 0 Hx Number of Living Children 2 AB spontaneous 0 Past Pregnancies Del. Date GA/Weeks # Preg Succ Route Wgt Sex Labor Lgth Anesth esia Location Prov Complic 11/20/16 40 vaginal 2920.001 g Female 9 hours regional 12/22/18 40 No vaginal 3685.438 g Female Sudhir Bauer,KATSai Delivery Date: 11/20/16 Last Updated by: Vale Lizette Delivered at [facility] Allergies and Home Medications Allergies Allergy/AdvReac Type Severity Reaction Status Date / Time Penicillins AdvReac Intermediate Hives Verified 02/09/24 23:40 Home Medications Medication Instructions Recorded Confirmed Type lisdexamfetamine 30 mg capsule 50 mg PO 10/22/23 02/07/24 History sertraline 25 mg tablet 25 mg PO HS 02/02/24 02/09/24 History sertraline 50 mg tablet 50 mg PO HS 02/02/24 02/09/24 History disulfiram 250 mg tablet 250 mg 02/09/24 History Exam Narrative Exam Narrative: General: Patient appears appropriate for age but very anxious, crying with puffy eyes. She has a very labile affect. She appears alert and oriented x 3. She has moderate obese. HEENT: Normocephalic, face slightly puffy with crying especially over her eyelids, eyes with pupils equal and reactive to light symmetrically, extraocular movement intact and sclera anicteric. Oropharynx with point because of fair dentition. Neck: Supple without JVD no palpable thyromegaly. Back: Stooped posture without CVA tenderness. Lungs: Fair aeration with some bronchovesicular breath sounds with no focalizing rales or rhonchi. No expiratory wheeze. Breast: Exam deferred. Heart: Regular rate and rhythm the patient is upset with no murmurs or gallops appreciated. Abdomen: Obese contour, soft and nontender to palpation with no palpable hepatosplenomegaly. Genitalia/rectal: Exam deferred. Skin: Normal color, warm and dry. Extremities: Without clubbing, cyanosis or pitting edema. Peripheral pulses intact. Neuro: Cranial nerves II through XII grossly intact, no focal motor deficits. No tremor noted though patient holds her hands out and is attempting to show for withdrawal symptoms with gross tremors at times. Psych: Labile affect with very anxious and depressed mood with patient having very pressured speech and skipping around conversation as to concerns with pressures of life. (Patient stated that she has never been drug user) No abnormal thought processes or hallucinations. Remote and recent memory appear to be grossly intact. Results Labs 02/09/24 21:05 02/09/24 21:05 Labs: Laboratory Results - last 24 hr 02/09/24 21:05 WBC 8.80 RBC 4.51 Hgb 14.1 Hct 42.8 MCV 95 MCH 31.3 MCHC 32.9 RDW 13.5 Plt Count 441 H MPV 9.2 Immature Gran % 0.5 Neutrophils % 68.4 Lymphocytes % 20.7 Monocytes % 7.0 Eosinophils % 2.0 Basophils % 1.4 Nucleated RBC % 0.0 Absolute Neutrophils 6.02 Absolute Lymphocytes 1.82 Absolute Monocytes 0.62 Absolute Eosinophils 0.18 Absolute Basophils 0.12 Sodium 144 Potassium 3.5 Chloride 104 Carbon Dioxide 27.7 Anion Gap 12.3 H BUN 7 Creatinine 0.7 Est GFR (CKD-EPI 2020) 118.51 Glucose 95 Calcium 8.7 Total Bilirubin 0.18 L AST 45 H ALT 81 H Alkaline Phosphatase 83 Troponin I < 50 Total Protein 7.8 Albumin 4.1 Serum HCG, Qual Negative Ethyl Alcohol 377.3 H Last Vital Signs Temp 36.7 C 02/09/24 19:54 Pulse 87 02/09/24 21:56 Resp 17 02/09/24 21:56 BP 137/89 02/09/24 21:56 Pulse Ox 98 02/09/24 19:54 Time Spent Time spent with Patient: >75 minutes Time was spent: preparing to see the patient(eg.review tests), obtaining and/or reviewing separately otained hiistory, ordering medications,tests, procedures, referring, communicating with other health assurance services manager health care, indepentently interpreting results and counseling the patient
[2024-02-10] VITALS (22 sets, daily range): BP systolic 127–135; BP diastolic 80–119; PULSE 49–102; RESP 11–22; TEMP 36.8–37.5; O2SAT 98–100
[2024-02-10] MEDS: PHENobarbital 130 MG in Normal Saline 50 ML 100 MG IVPB (01:30)
[2024-02-10] MEDS: Normal Saline Flush 10 ML SYR IVP ×4 (01:31→19:55)
[2024-02-10] MEDS: Normal Saline 1,000 ML 125 ML IV ×2 (01:33→18:11)
[2024-02-10] MEDS: PHENobarbital 100 MG in Normal Saline 50 ML IVPB ×2 (02:51→05:35)
[2024-02-10 06:37] LABS: HCT 38.7 % (36.0-46.0); HGB 12.7 g/dL (11.2-15.7); MCH 31.5 pg (27.0-33.0); MCHC 32.8 % (32.0-36.0); MCV 96 fL (80-95); MPV 9.7 fL (8.0-11.0); Platelet Count 396 10^3/uL (130-400); RBC 4.03 10^6/uL (3.93-5.22); RDW 13.5 % (11.7-14.6); RDW-SD 48.1 fL; WBC 11.37 10^3/uL (4.4-10.8)
[2024-02-10 06:45] LABS: Bilirubin Negative (Negative); Blood Large (Negative); Clarity Sl Cloudy (Clear); Glucose Negative (Negative); Ketones Negative (Negative); Leukocyte Esterase Negative (Negative); Nitrite Negative (Negative); Specific Gravity 1.025 (1.005-1.025); Urobilinogen 0.2 mg/dL (Up to 0.2)
[2024-02-10 06:51] LABS: RBC 20-50 HPF (0-2); WBC 0-2 HPF (0-5)
[2024-02-10 06:51] LABS: INR 0.9 (0.9-1.1); Prothrombin Time 9.5 sec (9.1-11.1)
[2024-02-10 06:52] LABS: Bacteria Moderate HPF (Negative); C & S Indicated? No; Casts 0-2 Hyaline LPF (Negative); Crystals Negative HPF (Negative); Epithelial Cells Many HPF (Negative); Mucus Moderate (Negative)
[2024-02-10 06:56] LABS: ALT 70 U/L (14-59); AST 36 U/L (15-37); Albumin 3.6 g/dL (3.4-5.0); Alkaline Phosphatase 73 U/L (46-116); Anion Gap 12.8 mmol/L (3-11); BUN 12 mg/dL (7-18); Bilirubin, Direct 0.1 mg/dL (0.0-0.2); Bilirubin, Total 0.17 mg/dL (0.2-1.0); CO2 26.2 mmol/L (21.0-32.0); CREATININE 0.7 mg/dL (0.55-1.02); Calcium 8.9 mg/dL (8.5-10.1); Chloride 107 mmol/L (98-107); Estimated GFR 118.51 (mL/min/1.73m2); Glucose 88 mg/dL (74-106); Magnesium 1.5 mg/dL (1.8-2.4); PHOSPHORUS 3.8 mg/dL (2.6-4.7); Potassium 3.7 mmol/L (3.5-5.1); Sodium 146 mmol/L (136-145); Total Protein 6.7 g/dL (6.4-8.2)
[2024-02-10 07:07] LABS: *AMPHETAMINES SCREEN URINE Negative (Negative); *BARBITURATES SCREEN URINE Positive (Negative); *BENZODIAZEPINES SCREEN URINE Positive (Negative); Cannabinoids THC Negative (Negative); Cocaine Screen,Urine Negative (Negative); METHADONE URINE SCREEN Negative (Negative); OPIATES URINE SCREEN Negative (Negative)
[2024-02-10 07:08] LABS: Tricyclic Antidepressants Negative (Negative)
[2024-02-10] MEDS: Folic Acid 1 MG TAB PO (08:59)
[2024-02-10] MEDS: Multivitamin TAB 1 TAB PO (08:59)
--- NOTE | 2024-02-10 08:59 | W.NUTRFU ---
Date of service: 02/10/24 Time of Service: 08:59 Nutrition Note NOTE: Assessment Pt is a readmission for alcohol w/drawl, with a PMH significant for anxiety/depression, alcohol use disorder with hepatitis and ADHD. Labs: Mag low today at 1.5 and was given 2g MgS. Receiving MVI, 100mg Thiamine and 1mg FA daily for 7 days for nutrition support. Pt with no hx of food allergy, chewing swallowing concerns. Pt ordered for regular diet with a history of ordering multiple entrees and items from the kitchen. Her weight stable, BMI indicates stage I obesity Diagnosis: Overweight/obesity (NC-3.3) related to excessive calories from food and alcohol (reported to drink >20beer per day) as evidenced by BMI >30 Intervention: appropriate nutrient support given as per assessment above. We will continue to offer a variety of menu choices on a regular diet order for ms gaytan to choose from. Monitoring: Will monitor labs, reported po intake Time Spent in Nutritional Counseling and Treatment: 0
[2024-02-10] MEDS: Enoxaparin 40 MG/0.4 ML SYR SC (09:00)
[2024-02-10] MEDS: Thiamine 100 MG TAB PO (09:00)
--- NOTE | 2024-02-10 09:35 | PGE_ITS ---
Date of Service Date of service: 02/10/24 Time of Service: 09:36 Assessment and Plan Assessment and plan (1) Alcohol withdrawal: Status: Acute Assessment and plan: Now s/p phenobarbitol loading, still has prns available, though withdrawal not severe now. Continue to avoid benzodiazepines as this can be unsafe added to barbituates and she has a h/o benzodiazepine use disorder Will add prn clonidine, precedex is an option if maxes out phenobarb Qualifiers: Complication of substance-induced condition: uncomplicated Qualified Code(s): F10.930 - Alcohol use, unspecified with withdrawal, uncomplicated (2) Alcohol use disorder: Status: Chronic Assessment and plan: Patient continues to drink heavily each time she is to return home. Her insight is poor and that she thinks she can do it on her own. she has had arrangements for inpatient alcohol detoxification at [facility] in [place], but she is hesitant to commit to going. I was very clear with Malia that my recommendation is inpatient rehab given rapidly recurring relapses recently. 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 She is prepared economically to to rehab for at least a month. Appreciate care management support around placement logistics. (3) Alcoholic hepatitis: Status: Chronic Assessment and plan: Not severe. No signs of advanced fibrosis. Qualifiers: Ascites presence: without ascites Qualified Code(s): K70.10 - Alcoholic hepatitis without ascites (4) Personality disorder, depressive: Status: Chronic Assessment and plan: Patient should receive more intense psychiatric care for anxiety, and depression. Resumed sertraline for now. (5) Smoker: Status: Acute Assessment and plan: nicotene gum Subjective Subjective Patient reports: tolerating liquids well and voiding w/o difficulty; denies nausea, vomiting or fever Interval history since last seen: Feels anxious, feels bad about being here. She denies hallicinations or confusion. She states last night was terrible. She agrees she needs to go to rehab but also states she doesn't want to go. She has been in contact with [facility] in [facility] and her yazidi wants her to go there. She pre-payed her rent through March. She admits she was being manipulative to get benzos last visit, agrees she should not use them this time. She states she wants to stay sober but her mind changes quickly and she buys a 12 pack. She has had one stretch of 6 weeks sober after outpatient benzo protocol and disulfuram, but this hasn't worked in the past few times. Doesn't take disulfuram Exam Narrative Exam Narrative: GEN: Alert and oriented, anxious and pacing around roome but no acute distress. LUNGS: CTAB with normal effort CV: RRR with no murmurs, gallops, or rubs. ABD: +BS, soft, NT/ND EXT: no cyanosis, clubbing. no pitting edema NEURO: Normal speech and coordination. No tremor PSYCH: anxious mood and affect, normal thought process. Objective Last Vital Signs Temp 37.5 C 02/10/24 05:46 Pulse 84 02/10/24 05:46 Resp 13 02/10/24 05:46 BP 130/97 H 02/10/24 05:46 Pulse Ox 98 02/10/24 05:46 Laboratory Results - last 24 hr 02/09/24 02/10/24 02/10/24 21:05 05:34 05:34 WBC 8.80 11.37 H RBC 4.51 4.03 Hgb 14.1 12.7 Hct 42.8 38.7 MCV 95 96 H MCH 31.3 31.5 MCHC 32.9 32.8 RDW 13.5 13.5 Plt Count 441 H 396 MPV 9.2 9.7 Immature Gran % 0.5 Neutrophils % 68.4 Lymphocytes % 20.7 Monocytes % 7.0 Eosinophils % 2.0 Basophils % 1.4 Nucleated RBC % 0.0 Absolute Neutrophils 6.02 Absolute Lymphocytes 1.82 Absolute Monocytes 0.62 Absolute Eosinophils 0.18 Absolute Basophils 0.12 PT 9.5 INR 0.9 Sodium 144 146 H Potassium 3.5 3.7 Chloride 104 107 Carbon Dioxide 27.7 26.2 Anion Gap 12.3 H 12.8 H BUN 7 12 Creatinine 0.7 0.7 Est GFR (CKD-EPI 2020) 118.51 118.51 Glucose 95 88 Calcium 8.7 8.9 Phosphorus 3.8 Cancelled Magnesium 1.5 L Total Bilirubin 0.18 L 0.17 L Conjugated Bilirubin AST 45 H ALT 81 H Alkaline Phosphatase 83 Troponin I < 50 Total Protein 7.8 Albumin 4.1 Serum HCG, Qual Negative Urine Color Urine Clarity Urine pH Ur Specific [place] Urine Protein Urine Ketones Urine Blood Urine Nitrite Urine Bilirubin Urine Urobilinogen Ur Leukocyte Esterase Urine RBC Urine WBC Ur Epithelial Cells Urine Crystals Urine Bacteria Urine Casts Urine Mucus Ur Culture Indicated? Urine Glucose Urine Opiates Screen Urine Methadone Screen Ur Barbiturates Screen Ur Tricyclics Screen Ur Amphetamines Screen U Benzodiazepines Scrn Urine Cocaine Screen Ur THC Screen Ethyl Alcohol 377.3 H 02/10/24 02/10/24 02/10/24 05:34 05:34 05:34 WBC RBC Hgb Hct MCV MCH MCHC RDW Plt Count MPV Immature Gran % Neutrophils % Lymphocytes % Monocytes % Eosinophils % Basophils % Nucleated RBC % Absolute Neutrophils Absolute Lymphocytes Absolute Monocytes Absolute Eosinophils Absolute Basophils PT INR Sodium Potassium Chloride Carbon Dioxide Anion Gap BUN Creatinine Est GFR (CKD-EPI 2020) Glucose Calcium Phosphorus Magnesium Total Bilirubin Cancelled Conjugated Bilirubin 0.1 Cancelled AST 36 Cancelled ALT 70 H Alkaline Phosphatase Troponin I Total Protein Albumin Serum HCG, Qual Urine Color Urine Clarity Urine pH Ur Specific [place] Urine Protein Urine Ketones Urine Blood Urine Nitrite Urine Bilirubin Urine Urobilinogen Ur Leukocyte Esterase Urine RBC Urine WBC Ur Epithelial Cells Urine Crystals Urine Bacteria Urine Casts Urine Mucus Ur Culture Indicated? Urine Glucose Urine Opiates Screen Urine Methadone Screen Ur Barbiturates Screen Ur Tricyclics Screen Ur Amphetamines Screen U Benzodiazepines Scrn Urine Cocaine Screen Ur THC Screen Ethyl Alcohol 02/10/24 02/10/24 02/10/24 05:34 05:34 05:34 WBC RBC Hgb Hct MCV MCH MCHC RDW Plt Count MPV Immature Gran % Neutrophils % Lymphocytes % Monocytes % Eosinophils % Basophils % Nucleated RBC % Absolute Neutrophils Absolute Lymphocytes Absolute Monocytes Absolute Eosinophils Absolute Basophils PT INR Sodium Potassium Chloride Carbon Dioxide Anion Gap BUN Creatinine Est GFR (CKD-EPI 2020) Glucose Calcium Phosphorus Magnesium Total Bilirubin Conjugated Bilirubin AST ALT Cancelled Alkaline Phosphatase 73 Cancelled Troponin I Total Protein 6.7 Cancelled Albumin 3.6 Serum HCG, Qual Urine Color Urine Clarity Urine pH Ur Specific [place] Urine Protein Urine Ketones Urine Blood Urine Nitrite Urine Bilirubin Urine Urobilinogen Ur Leukocyte Esterase Urine RBC Urine WBC Ur Epithelial Cells Urine Crystals Urine Bacteria Urine Casts Urine Mucus Ur Culture Indicated? Urine Glucose Urine Opiates Screen Urine Methadone Screen Ur Barbiturates Screen Ur Tricyclics Screen Ur Amphetamines Screen U Benzodiazepines Scrn Urine Cocaine Screen Ur THC Screen Ethyl Alcohol 02/10/24 02/10/24 05:34 05:35 WBC RBC Hgb Hct MCV MCH MCHC RDW Plt Count MPV Immature Gran % Neutrophils % Lymphocytes % Monocytes % Eosinophils % Basophils % Nucleated RBC % Absolute Neutrophils Absolute Lymphocytes Absolute Monocytes Absolute Eosinophils Absolute Basophils PT INR Sodium Potassium Chloride Carbon Dioxide Anion Gap BUN Creatinine Est GFR (CKD-EPI 2020) Glucose Calcium Phosphorus Magnesium Total Bilirubin Conjugated Bilirubin AST ALT Alkaline Phosphatase Troponin I Total Protein Albumin Cancelled Serum HCG, Qual Urine Color Yellow Urine Clarity Sl Cloudy Urine pH 6.0 Ur Specific [place] 1.025 Urine Protein 100 H Urine Ketones Negative Urine Blood Large H Urine Nitrite Negative Urine Bilirubin Negative Urine Urobilinogen 0.2 Ur Leukocyte Esterase Negative Urine RBC 20-50 H Urine WBC 0-2 Ur Epithelial Cells Many Urine Crystals Negative Urine Bacteria Moderate Urine Casts 0-2 Hyaline Urine Mucus Moderate Ur Culture Indicated? No Urine Glucose Negative Urine Opiates Screen Negative Urine Methadone Screen Negative Ur Barbiturates Screen Positive A Ur Tricyclics Screen Negative Ur Amphetamines Screen Negative U Benzodiazepines Scrn Positive A Urine Cocaine Screen Negative Ur THC Screen Negative Ethyl Alcohol PAWSS Have you Been Recently Intoxicated or Drunk Within the Last 30 days?: Yes Have you Ever Experienced Previous Episodes of Alcohol Withdrawal?: Yes Have you ever Experienced Withdrawal Seizures?: No Have you ever Experienced Delirium Tremens(DT)s?: Yes Have you ever undergone Alcohol Rehabilitation Treatment (i.e, inpt ot outpatient treatment programs)?: Yes Have you ever Experienced Blackouts?: No Have you ever Combined Alcohol with other Downers within the last 90 days?: Yes Have you ever Combined Alcohol with any other Substance of Abuse during the last 90 days?: Yes Positive Blood Alcohol level on Presentation? [PCS.BAL]: Yes Evidence of Increased Autonomic Activity (i.e. HR>120, tremor, sweating, agitation, nausea)?: No Result: 7 Time Spent with Patient Time Spent with Patient: >50 minutes Time was spent: preparing to see the patient(eg.review tests), obtaining and/or reviewing separately otained hiistory, ordering medications,tests, procedures, referring, communicating with other health wound care physician, indepentently interpreting results, counseling the patient and care coordination
[2024-02-10] MEDS: cloNIDine 0.1 MG TAB PO ×2 (09:48→15:16)
[2024-02-10] MEDS: MAGNESIUM SULFATE 2 GM/50 ML BAG IVINF (10:18)
--- NOTE | 2024-02-10 11:25 | PHA.REVIEW2 ---
Pharmacy Admission Review Admission Clinical Review Admission Pharmacy Review: Smoker (Acute) Alcohol withdrawal (Acute) Penicillins Adverse Reaction (Intermediate, Verified 02/09/24 23:40) Hives Resuscitation Status Full Code Height 5 ft 5 in Weight 84.8 kg Pharmacy Admission Review Renal Dosing Renal Dosing: BUN 12 mg/dL (7-18) 02/10/24 05:34 Creatinine 0.7 mg/dL (0.55-1.02) 02/10/24 05:34 Medications needing adjustments: Reviewed (CrCl 125.21 mL/min) List of meds needing interventions: Current medications are okay Anticoagulation Anticoagulation: Hgb 12.7 g/dL (11.2-15.7) 02/10/24 05:34 Hct 38.7 % (36.0-46.0) 02/10/24 05:34 Plt Count 396 10^3/uL (130-400) 02/10/24 05:34 INR 0.9 (0.9-1.1) 02/10/24 05:34 Creatinine 0.7 mg/dL (0.55-1.02) 02/10/24 05:34 DVT Prophylaxis: Reviewed Medications: Enoxaparin (40mg daily) Relevant Labs Relevant Labs: Sodium 146 mmol/L (136-145) H 02/10/24 05:34 Potassium 3.7 mmol/L (3.5-5.1) 02/10/24 05:34 Chloride 107 mmol/L (98-107) 02/10/24 05:34 Phosphorus 3.8 mg/dL (2.6-4.7) 02/10/24 05:34 Phosphorus Cancelled 02/10/24 05:34 Magnesium 1.5 mg/dL (1.8-2.4) L 02/10/24 05:34 Electrolytes, C-Reactive P, ESR: Reviewed (Na 146, Mg 1.5, WBC 11.37, AST/ALT decreased from 45/81 to 36/70) Cardiac Review Cardiac Review: Troponin I < 50 ng/L (< or =60) 02/09/24 21:05 Blood Pressure [Left Arm] 135/119 Blood Pressure 130/97 0546 Blood Pressure 130/97 0543 Blood Pressure 133/80 0301 BP, HR, EF%: Reviewed (BP 130/97 and HR WNL) QTc Review QTc: Reviewed (434 from 02/09/24) IV to PO Switch IV Medications: Reviewed (phenobarbital) Home Meds Home Med List reviewed: Reviewed Relevent Home Meds Not ordered & why?: disulfiram (to help alcoholism) Current Meds Current Medication Order Review: Reviewed Comments: Phenobarbital for withdrawal Soft stop: 855mg Hard stop: 1140mg Loading doses: 130 + 100 + 100 = 330mg No PRN doses given Last CIWA was 2 at 0959 today
[2024-02-10] MEDS: Nicotine 4 MG GUM CH (15:16)
--- NOTE | 2024-02-10 16:20 | CHAPLAIN ---
Malia was walking the length of the ICU when visited, so I walked with her. This is her third admission in recent days so she remembered me. She is here for alcohol withdrawal. Malia said while she was under the influence of alcohol she agreed to go to a rehab in [place], [facility], and made arrangements to go, but now she is not sure she wants to go. At one point she said she wants to go home do this on my own and be with my kids. Her two young daughters are currently with their dad. We talked about the importance of taking care of herself first, before she can be helpful to her daughters. Malia also talked a lot about Pan. She just broke up with him and is very hurt by the breakup. She said Nuno has been sober for a few months now. Malia has been supported by a kev community in [facility], she didn't identify which one, but she said they no longer want to help her because she was drinking over the weekend. She is also worried about disappointing God. We talked how God created all of us to be human and is well aware of our human faults. I offered a prayer with Malia. I will continue to visit..
--- NOTE | 2024-02-10 16:45 | INITIAL_ITS ---
Date of service: 02/10/24 Time of Service: 16:45 Care Management Initial Assmt Initial Assessment Reason for Hospitalization: Alcohol withdrawal Functional Status/Living Situation Patient Presentation: Malia was lying in bed sleeping when CM attempted to meet with her. Her RN asked not to wake her, as she reportedly did not sleep well last night. Per report, she has been anxious and pacing in the ICU, but she has been appropriate in interactions with staff. She has stated that she is looking into going to rehab upon discharge, and reports that she has been in contact with [facility] [place]; this is a self referral process. Per MD, she is on phenobarbital protocol currently; she is being closely monitored at ICU level of care. CM will continue to follow. Town of Residence: [facility] Resides with: Child (partial custody of children, 2 daughters, age 5 and 7) Employment Status: Employed ([employer]) Instrumental Activities of Daily Living (ADLs): Independent Medications Medication Management: No Issues/Barriers identified Advance Directives Advance Directives: Do you have an Advance Directive: N 01/28/22 14:[address] File [address] [facility]: N 01/28/22 14:18 Date Asked 02/09/24 02/09/24 20:07 AD Date Reviewed COLST On File at [facility] No 02/07/24 17:48 COLST Date Scanned Code Status Resuscitation Status Full Code Insurance Coverage/Financial Issues Insurance: BC/BS ACO Member: No Care Team Visit Care Team Role Provider Type Randolph Harvey Primary Care Provider [facility] STAFF PHYSICIAN Margarito Vasquez MD Emergency Provider [facility] STAFF PHYSICIAN Shakeel Greene Admit Provider NON-[facility] STAFF PHYSIC GUS Attending Provider Discharge Potential Discharge Needs: PCP F/U Appt and Other (F/U with therapist/LADC) Anticipated Barriers to Discharge: Medical Status Patient/Family Education Needs: Review discharge instructions, discuss Ask Me Three Transportation: Private vehicle Plan: Anticipate Malia will return home once medically cleared. She has expressed interest in rehab for alcohol use post discharge; this is a self referral. CM provided resources on previous admission; will review. She will transport via private vehicle by a friend. She will follow up with her PCP and discharge plan of care. CM will continue to follow. PFSH All Active Problems (Updated 02/10/24 @ 10:03 by Margarito Curry) Smoker (Acute) Alcohol use disorder (Chronic) Anxiety (Chronic) Personality disorder, depressive (Chronic) Alcohol withdrawal (Acute) Alcoholic hepatitis (Chronic) Alcohol use disorder, severe, dependence (Chronic) Herpes simplex type 1 infection (Acute 12/19/16) Eczema (Chronic) ADHD (attention deficit hyperactivity disorder), combined type (Chronic) Generalized anxiety disorder (Chronic) Depression (Acute) Medical History (Updated 02/10/24 @ 10:03 by Margarito Curry) Benzodiazepine abuse Presence of intrauterine contraceptive device (IUD) Paragard IUD placed 12/01/23 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 Vanessa Bryan MD History of calculus of kidney during (12/19/16) History of substance abuse (12/19/16) History of acute pyelonephritis Surgical History EGD w/Bx for H.Pylori (07/29/08) [facility] Cystoscopy (01/05/18) [facility] [facility] Urology with R ureteral stent placement Family History Father , OD at age 42. Substance abuse Essential hypertension Mother Mental disorder Bipolar d/o Neoplasm small cell neuroendocrine carcinoma Sister Substance abuse Mental disorder Bipolar d/o Brother Substance abuse Mental disorder Bipolar d/o Brother Substance abuse Mental disorder Bipolar d/o Grandmother Neoplasm Breast CA Social History Smoking/Tobacco Use Status: Current every day Tobacco Type: cigarettes and e- cigarettes Tobacco: How many years used: 10 Quit status: has quit before Counseling given: provider counseling Smoking risk assessment performed?: Yes Alcohol Intake: current Alcohol Intake frequency: 3 or more drinks per day Alcohol type: beer, wine and hard liquor Details: Decided to quit drinking. Stopped 01/2019 Drug use: Never Substance use type: marijuana Adopted: No Foster care: No Household members: significant other and children Housing: apartment Number of Children: 2 current occupation: [employer] Pets and animals: Yes (1 dog) What type of physical activity do you participate in: regular exercise Duration: other Details: cleaning Frequency: daily Do you feel safe at home: Yes Do you feel safe in your relationship?: Yes Female Reproductive History Menstrual Duration of menses: 6-7 days control method: copper IUCD History History 2 Para 2 Hx # Term Pregnancies 2 Multiple births 0 Hx # Pregnancies 0 Ectopic pregnancies 0 AB induced 0 Hx Number of Living Children 2 AB spontaneous 0 Past Pregnancies Del. Date GA/Weeks # Preg Succ Route Wgt Sex Labor Lgth Anesth esia Location [facility] 11/20/16 40 vaginal 2920.001 g Female 9 hours regional 12/22/18 40 No vaginal 3685.438 g Female Sudhir Bauer CNM Delivery Date: 11/20/16 Last Updated by: Vale Bauer Delivered at [facility](Care Management) Screening Will the Patient Participate in the Screening?: Yes Do you worry about having a steady place to live?: yes Problems where you live: no known problems In the past 12 months, have you had to go without electric, gas, oil or water in your home?: no Have you or anyone in your house had to go without enough food to eat?: no Has lack of transportation kept you from medical appointments or from doing things needed for daily living?: no Has anyone in your support network made you feel unsafe for any reason?: no Health Related Social Needs Health related social needs: housing instability, housed, with risk of homelessness(Z59.811)
[2024-02-10] MEDS: Sertraline 25 MG TAB PO (19:55)
[2024-02-10] MEDS: Sertraline 50 MG TAB PO (19:55)
[2024-02-10] MEDS: Mirtazapine 15 MG TAB 7.5 MG PO (20:37)
[2024-02-10] MEDS: Ondansetron O.D.T. 4 MG TABEF PO (20:39)
[2024-02-11] VITALS (16 sets, daily range): BP systolic 102–134; BP diastolic 68–112; PULSE 44–83; RESP 14–27; TEMP 35.7–36.7; O2SAT 95–100
[2024-02-11] MEDS: cloNIDine 0.1 MG TAB PO ×2 (02:04→19:28)
[2024-02-11 06:13] LABS: ALT 57 U/L (14-59); AST 30 U/L (15-37); Alkaline Phosphatase 61 U/L (46-116); Anion Gap 8.9 mmol/L (3-11); BUN 10 mg/dL (7-18); Bilirubin, Total 0.34 mg/dL (0.2-1.0); CO2 29.1 mmol/L (21.0-32.0); CREATININE 0.8 mg/dL (0.55-1.02); Calcium 8.5 mg/dL (8.5-10.1); Chloride 107 mmol/L (98-107); Estimated GFR 100.96 (mL/min/1.73m2); Glucose 106 mg/dL (74-106); Magnesium 1.6 mg/dL (1.8-2.4); Potassium 3.8 mmol/L (3.5-5.1); Sodium 145 mmol/L (136-145)
[2024-02-11] MEDS: PHENobarbital 130 MG/ML VIAL IVP (06:18)
[2024-02-11] MEDS: Ondansetron O.D.T. 4 MG TABEF PO ×2 (07:17→14:52)
[2024-02-11] MEDS: MAGNESIUM SULFATE 2 GM/50 ML BAG IVINF (07:46)
[2024-02-11] MEDS: Normal Saline Flush 10 ML SYR IVP ×5 (08:09→20:42)
--- NOTE | 2024-02-11 08:22 | PGE_ITS ---
Date of Service Date of service: 02/11/24 Time of Service: 08:23 Assessment and Plan Assessment and plan (1) Alcohol withdrawal: Status: Acute Assessment and plan: Symptoms are better controlled with less total dose phenobarbitol this time. Still has prns available, though withdrawal not severe now. Continue to avoid benzodiazepines as this can be unsafe added to barbituates and she has a h/o benzodiazepine use disorder Clonidine seems to have caused her bradycardia, but she is not symptomatic and BP stable so safe to continue prn. Qualifiers: Complication of substance-induced condition: uncomplicated Qualified Code(s): F10.930 - Alcohol use, unspecified with withdrawal, uncomplicated (2) Alcohol use disorder: Status: Chronic Assessment and plan: Patient has immediately relapsed when she returns home the last admissions. she has had arrangements for inpatient alcohol detoxification at [facility] in [place], but now stating she prefers outpatient treatment I was very clear with Malia that my recommendation is inpatient rehab given rapidly recurring relapses recently. She will meet with recover coach professional athletes today She is open to intensive outpatient through [facility] if this is an option It may make sense as an outpatient to use marker of alcohol abstinence to help monitor and use as prerequisite to her stimulant medication to lower her overall risk. Ethyl Glucunoride (urine marker of alcohol in the past 5 days) and phosphatidylethanol (blood test marker of alcohol use in the last 1-2 weeks) are available at [facility] lab as sendouts and could be used for this purpose. (3) Alcoholic hepatitis: Status: Chronic Assessment and plan: Not severe. No signs of advanced fibrosis. Qualifiers: Ascites presence: without ascites Qualified Code(s): K70.10 - Alcoholic hepatitis without ascites (4) Smoker: Status: Acute Assessment and plan: nicotene gum (5) Generalized anxiety disorder: Status: Chronic Assessment and plan: with depression. Taking sertraline, though she has been inconsisitent with this as an outpatient. I added mirtazipine to help her sleep without benzo-like medication, but I don't think this will be termite inspector. (6) ADHD (attention deficit hyperactivity disorder), combined type: Status: Chronic Assessment and plan: She is getting her stimulant therapy this admission. This has been held in the past, and it does actually seem to help her behavior. Of course the stimulant can be abused, but she has tended to abuse depressants rather than stimulants. At this point I think benefit outweighs the risk. (7) DVT prophylaxis: Status: Resolved Assessment and plan: given age and ambulation, not indicated. Subjective Subjective Patient reports: no new complaints, tolerating a regular diet, voiding w/o difficulty and nausea; denies diarrhea, vomiting, shortness of breath or fever Interval history since last seen: Received mirtazipine for sleep, ondansatron for nausea, clonidine for anxiety Bradycardic in the 40s overnight, which is new She feels better, anxiety not as bad this time. She doesn't feel lightheaded or dizzy. Exam Narrative Exam Narrative: GEN: Alert and oriented, less anxious, sitting in bed, no acute distress. LUNGS: CTAB with normal effort CV: RRR with no murmurs, gallops, or rubs. EXT: no cyanosis, clubbing. no pitting edema NEURO: Normal speech and coordination. No tremor PSYCH: normal thought process. Objective Last Vital Signs Temp 36.8 C 02/10/24 20:46 Pulse 44 L 02/11/24 05:52 Resp 24 02/11/24 06:57 BP 102/68 02/11/24 06:57 Pulse Ox 100 02/10/24 20:46 Laboratory Results - last 24 hr 02/11/24 05:45 Sodium 145 Potassium 3.8 Chloride 107 Carbon Dioxide 29.1 Anion Gap 8.9 BUN 10 Creatinine 0.8 Est GFR (CKD-EPI 2020) 100.96 Glucose 106 Calcium 8.5 Magnesium 1.6 L Total Bilirubin 0.34 AST 30 ALT 57 Alkaline Phosphatase 61 Total Protein 6.0 L Albumin 3.0 L PAWSS Have you Been Recently Intoxicated or Drunk Within the Last 30 days?: Yes Have you Ever Experienced Previous Episodes of Alcohol Withdrawal?: Yes Have you ever Experienced Withdrawal Seizures?: No Have you ever Experienced Delirium Tremens(DT)s?: Yes Have you ever undergone Alcohol Rehabilitation Treatment (i.e, inpt ot outpatient treatment programs)?: Yes Have you ever Experienced Blackouts?: No Have you ever Combined Alcohol with other Downers within the last 90 days?: Yes Have you ever Combined Alcohol with any other Substance of Abuse during the last 90 days?: Yes Positive Blood Alcohol level on Presentation? [PCS.BAL]: Yes Evidence of Increased Autonomic Activity (i.e. HR>120, tremor, sweating, agitation, nausea)?: No Result: 7 Time Spent with Patient Time Spent with Patient: >50 minutes Time was spent: preparing to see the patient(eg.review tests), obtaining and/or reviewing separately otained hiistory, ordering medications,tests, procedures, referring, communicating with other health long term care phlebotomist, indepentently in terpreting results, counseling the patient and care coordination
[2024-02-11] MEDS: Enoxaparin 40 MG/0.4 ML SYR SC (08:26)
[2024-02-11] MEDS: Thiamine 100 MG TAB PO (08:27)
[2024-02-11] MEDS: Folic Acid 1 MG TAB PO (08:27)
[2024-02-11] MEDS: Multivitamin TAB 1 TAB PO (08:27)
--- NOTE | 2024-02-11 08:35 | PDOC.CMPRO ---
Date of service: 02/11/24 Time of Service: 08:36 Care Management Progress Note Progress Note Text Progress Note Text: Malia was sitting up in bed when CM met with her. She was pleasant and engaged well with CM. 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 She had been contemplating going to an inpatient rehab program but has decided against it at this time. She shared that she plans [facility] and start attending meetings. She also indicated that she has requested Disulfiram when discharged to serve as another incentive to not drink alcohol. Malia anticipates being discharged tomorrow and does not anticipate the need for any home health services. Discharge Potential Discharge Needs: Other (possible rehab for FLOR) Anticipated Barriers to Discharge: Bed availability Patient/Family Education Needs: Review discharge instructions, discuss Ask Me Three Transportation: Private vehicle Plan: Anticipate Malia will return home once medically cleared. She has expressed interest in rehab for alcohol use post discharge; this is a self referral. Resources were provided on previous admission; will review. Malia will transport via private vehicle by a friend. She will follow up with her PCP and discharge plan of care. CM will continue to follow. SDOH(Care Management) Screening Will the Patient Participate in the Screening?: Yes Do you worry about having a steady place to live?: yes Problems where you live: no known problems In the past 12 months, have you had to go without electric, gas, oil or water in your home?: no Have you or anyone in your house had to go without enough food to eat?: no Has lack of transportation kept you from medical appointments or from doing things needed for daily living?: no Has anyone in your support network made you feel unsafe for any reason?: no Health Related Social Needs Health related social needs: housing instability, housed, with risk of homelessness(Z59.811)
[2024-02-11] MEDS: Acetaminophen 325 MG TAB PO (09:48)
--- NOTE | 2024-02-11 15:36 | W.PC.ACHO ---
Registration Status: ADM IN Primary Language: Preferred Language: Khmer ED Information & Data Chief Complaint ETOHWithdr 02/09/24 21:16 Chief Complaint ETOHWithdr 02/09/24 20:42 Triage Note Here for detox. Reports she 02/09/24 19:54 has bed in [place] [facility] recovery but needs to detox first. Reports having approx 15 beers today throughout the day. Medical / Surgical History (Last Updated 02/10/24 @ 09:46 by Margarito Curry) Benzodiazepine abuse Presence of intrauterine contraceptive device (IUD) History of cervical dysplasia Neoplasm of uncertain behavior, unspecified History of calculus of kidney during (12/19/16) History of substance abuse (12/19/16) History of acute pyelonephritis (Last Reviewed 02/09/24 @ 23:52 by Shakeel Greene) EGD w/Bx for H.Pylori (07/29/08) Cystoscopy (01/05/18) Most Recent Vital Signs Temperature 36.6 C 02/11/24 11:12 Temperature Source Temporal Artery Scan 02/11/24 11:12 Pulse 62 02/11/24 11:12 Pulse Rhythm Irregular 02/11/24 07:31 Pulse 59 L 02/11/24 11:10 Respiratory Rate 16 02/11/24 11:12 Respiratory Effort Normal, Non-Labored 02/11/24 07:31 Respiratory Depth Normal 02/11/24 07:31 Respiratory Pattern Normal 02/11/24 07:31 Blood Pressure 129/89 02/11/24 11:12 Blood Pressure Mean 100 02/11/24 11:10 Blood Pressure Position Sitting 02/10/24 15:21 Pulse Oximetry 100 02/11/24 11:12 Oxygen Delivery Method Room Air 02/11/24 11:12 Oxygen Flow Rate 0 02/11/24 11:12 Pain Level 4 02/10/24 15:21 Allergies Penicillins Adverse Reaction (Intermediate, Verified 02/09/24 23:40) Hives Precautions Isolation Standard precaution 02/09/24 21:16 Active Medications Generic Name Dose Route Start Last Admin Trade Name Freq PRN Reason Stop Dose Admin Acetaminophen 0 mg 02/09/24 23:59 02/11/24 09:48 Acetaminophen 325 Mg Tab PO 650 mg Q4H PRN PRN Administration Clonidine 0.1 mg 02/10/24 09:33 02/11/24 02:04 Clonidine 0.1 Mg Tab PO 0.1 mg TID PRN PRN Administration Anxiety Folic Acid 1 mg 02/10/24 08:30 02/11/24 08:27 Folic Acid 1 Mg Tab PO 02/16/24 08:31 1 mg QAM ERNESTO Administration Lisdexamfetamine Dimesylate 50 mg 02/10/24 08:30 02/11/24 08:29 Lisdexamphetamine 50 Mg Cap PO Not Given DAILY ERNESTO Mirtazapine 7.5 mg 02/10/24 20:00 02/10/24 20:37 Mirtazapine 15 Mg Tab PO 7.5 mg HS ERNESTO Administration Multivitamins 1 tab 02/10/24 08:30 02/11/24 08:27 Multivitamin Tab PO 02/16/24 08:31 1 tab QAM ERNESTO Administration Nicotine 4 mg 02/10/24 10:01 02/10/24 15:16 Nicotine 4 Mg Gum CH 4 mg Q2H PRN PRN Administration Ondansetron HCl 4 mg 02/10/24 16:31 02/11/24 07:17 Ondansetron O.D.T. 4 Mg Tabef PO 4 mg Q8H PRN PRN Administration Phenobarbital Sodium 130 mg 02/10/24 08:17 02/11/24 06:18 Phenobarbital 130 Mg/Ml Vial IVP 130 mg DIRECTED PRN Administration for mild anxiety/agitation Sertraline HCl 25 mg 02/10/24 20:00 02/10/24 19:55 Sertraline 25 Mg Tab PO 25 mg HS ERNESTO Administration Sertraline HCl 50 mg 02/10/24 20:00 02/10/24 19:55 Sertraline 50 Mg Tab PO 50 mg HS ERNESTO Administration Sodium Chloride 0 ml 02/09/24 23:59 02/10/24 05:35 Normal Saline Flush 10 Ml Syr IVP 20 ml PRN PRN Administration Sodium Chloride 0 ml 02/10/24 08:30 02/11/24 08:09 Normal Saline Flush 10 Ml Syr IVP 40 ml BID ERNESTO Administration Thiamine HCl 100 mg 02/10/24 08:30 02/11/24 08:27 Thiamine 100 Mg Tab PO 02/16/24 08:31 100 mg QAM ERNESTO Administration IV IV Catheter Type [Left Saline Lock Antecubital] IV Catheter Gauge [Left 20 Antecubital] Diet Orders Category Date Time Status Regular/Normal [DIET] Nutrition 02/11/24 Breakfast Active Diagnostics 02/11/24 Range/Units 05:45 Sodium 145 (136-145) mmol/L Potassium 3.8 (3.5-5.1) mmol/L Chloride 107 (98-107) mmol/L Carbon Dioxide 29.1 (21.0-32.0) mmol/L Anion Gap 8.9 (3-11) mmol/L BUN 10 (7-18) mg/dL Creatinine 0.8 (0.55-1.02) mg/dL Est GFR (CKD-EPI 2020) 100.96 (mL/min/1.73m2) Glucose 106 (74-106) mg/dL Calcium 8.5 (8.5-10.1) mg/dL Magnesium 1.6 L (1.8-2.4) mg/dL Total Bilirubin 0.34 (0.2-1.0) mg/dL AST 30 (15-37) U/L ALT 57 (14-59) U/L Alkaline Phosphatase 61 (46-116) U/L Total Protein 6.0 L (6.4-8.2) g/dL Albumin 3.0 L (3.4-5.0) g/dL Intake and Output - 24 Hour Total 02/09/24 19:48 thru 02/11/24 11:24 Intake Total 2811.2884 Output Total 300 Balance 2511.2884 Weight 84.8 kg Intake: IV 1941.2884 Oral 870 Output: Urine 300 Other: Urine Color Light Elisabeth Urine Appearance Hematuria Comment patient reports voiding independently in the ICU toilet. void not viewed. Stool Size Moderate Stool Characteristics Soft Brown Voiding Methods Toilet Falls Risk Assessment History of Falls No History 02/10/24 01:00 Contributing Factors Medications 02/10/24 01:00 Ambulatory Aids Independent 02/10/24 01:00 Tubes/Lines With any additional score 02/10/24 01:00 Gait Evaluation No gait disturbance 02/09/24 21:17 Cognition No cognitive impairment 02/09/24 21:17 Fall Total Score 23 02/10/24 01:00 Level of Risk Standard/Low Risk 02/10/24 01:00 Problems (Last Updated 02/10/24 @ 09:46 by Margarito Curry) Smoker (Acute) Alcohol use disorder (Chronic) Anxiety (Chronic) Alcohol withdrawal (Acute) Alcoholic hepatitis (Chronic) Alcohol use disorder, severe, dependence (Chronic) ADHD (attention deficit hyperactivity disorder), combined type (Chronic) Generalized anxiety disorder (Chronic) v v v v v v v v v Sending and/or Receiving Nurses: Please use comment section below to note any information pertinent to the patient hand-off not included above. Information / Comments: S: Full code, 33yo, admitted 3x in last 2 weeks for alcohol withdrawl, phenobarb to diazapeme 1st admission 2nd admission started on ativan, then pheno protocol, hx of benzo abuse ciwa q2h, VS q2h admitted early 02/10/24. BALWINDER >.3 last admission she maxed out phenobarb within in 6 hours B: started drinking at 14yo 2 kids (5y, 7y) history of anxiety does not want inpatient rehab, agreed to outpatient rehab last 2 ciwas were 7, over 8 gets phenobarb soft stop 855, hard stop 1140 (had total 460) dosing weight 54.7 has been refusing her adderall, wanders, impulsive, pushes boundaries hx of smoking, nicotine gum available, vape on her person - has received education about vaping policies A: Neuro: A&Ox4, anxiety about moving units, and stated she is fearful her children will be taken from her Cardiac: Bradycardic today, 40s lowest of 38bpm asymptomatic, high of 70s sinus arrhythmia since admission, consistent no edema, no chest px, weak pulses, bp is WNL Lungs: clear bilaterally, no cough, RA Abdominal: some nausea, no vomiting, po zofran last given around 0730(some relief) eats full meals refuses commode last BM 02/10 Mobility: Independent, enjoys ambulating, often paces IV: scattered bruising from iv and falls 20g LAC (hx of messing with and taking out IVs) Saline Lock IV currently bruised and small amount of blood from insertion no current fluid running Labs: 2g mag given this am, 1.6 on labs at time K+ WNL R: Met with wellness coach Yadira Hernandez will f/u next 10 days through phone call (cell phone), getting to source of any problems, then finding/offering her with resources Has been refusing vivance last few days. Pt states she will only take vivance for work. Has been using clonadine for anxiety PRN, HR in the 40's with repeated use Report received from:[place]isa
--- NOTE | 2024-02-11 16:26 | CHAPLAIN ---
Malia was moved from the ICU to Med/Surg today. She had decided not to go to the inpatient rehab, and instead plans to attend AA meetings in [facility] through the weekend prior to returning to work at the [employer] program. She said her daughters will be attend a vacation Bible School and that will give her time to attend meetings next week. She was also give medication that will make her sick if she drinks and she this preventative measure will help. I prayed with Malia and let her know I'm available if I can be of any help later.
[2024-02-11] MEDS: Sertraline 25 MG TAB PO (19:18)
[2024-02-11] MEDS: Sertraline 50 MG TAB PO (19:18)
[2024-02-11] MEDS: Mirtazapine 15 MG TAB 7.5 MG PO (21:33)
[2024-02-12 02:46] VITALS: BP 112/77; PULSE 55; RESP 18; O2SAT 98
[2024-02-12] MEDS: Ondansetron O.D.T. 4 MG TABEF PO (02:54)
[2024-02-12 04:53] VITALS: BP 132/91; PULSE 43; RESP 16; TEMP 36.7; O2SAT 99
[2024-02-12 07:43] VITALS: BP 109/77; PULSE 50; RESP 18; TEMP 36.6; O2SAT 98
[2024-02-12] MEDS: Normal Saline Flush 10 ML SYR IVP (07:49)
[2024-02-12] MEDS: DISULFIRAM 250 MG TAB 500 MG PO (08:23)
[2024-02-12] MEDS: Thiamine 100 MG TAB PO (08:41)
[2024-02-12] MEDS: Multivitamin TAB 1 TAB PO (08:42)
[2024-02-12] MEDS: Folic Acid 1 MG TAB PO (08:51)
--- NOTE | 2024-02-12 09:29 | PDOC.CMDIS ---
Date of service: 02/12/24 Time of Service: 09:29 LACE Index Scoring Tool Questions: Length of Stay (in days): 3 Was the patient admitted via the E.D.?: Yes E.D. Visits: 4 Answers: Total Score: 10 Risk of Readmission: High Risk Care Management Discharge Plan Reason for Hospitalization: Alcohol withdrawal Discharge Plan: Malia will return home with no new services. She will be driven home via private vehicle by a friend. She will follow up with the [facility], her PCP, and her discharge plan of care. She decided against inpatient rehab at this time, and plans to attend sobriety meetings locally. Patient/Family Education Needs: Review discharge instructions and limitations, discussion of self care needs including ask me three. SDOH Health Related Social Needs: Health related social needs risk of homeless Health related social needs details FLOR Health related social needs: housing instability, housed, with risk of homelessness(Z59.811) Referrals and interventions: pt reports rent is paid until March
[2024-02-12 11:11] VITALS: BP 116/86; PULSE 61; RESP 17; TEMP 36.4; O2SAT 100
--- NOTE | 2024-02-12 11:34 | DSE_ITS ---
Date of service: 02/12/24 Time of Service: 11:34 DS: Diagnosis Discharge Diagnosis (1) Alcohol withdrawal: Status: Acute (2) Alcohol use disorder: Status: Chronic (3) Alcoholic hepatitis: Status: Chronic (4) Smoker: Status: Acute (5) Generalized anxiety disorder: Status: Chronic (6) ADHD (attention deficit hyperactivity disorder), combined type: Status: Chronic (7) DVT prophylaxis: Status: Resolved Discharge Plan Disposition Patient Disposition: Home Condition: Good Discharge Details Reason For Visit: Alcohol withdrawal Admit Date/Time: 02/09/24 23:54 Admit Provider: Shakeel Greene Attending Provider: Shakeel Greene Primary Care Provider: Randolph Harvey Hospital Course Hospital Course: 33 yo F with alcohol use disorder with multiple recent admissions for alcohol withdrawal, presented to the emergency room with blood alcohol level of 377 s eeking detoxification. She was treated with phenobarbitol protocol. Benzodiazepines were avoided due to her benzodiazepine use disorder history and problematic use of these medications at prior admissions. Clonidine was used prn for anxiety. This resulted in low heart rate to the high 30s but she did not have sympotms. This was not continued as outpatient. She was encouraged to discharge to inpatient rehabilitation for alcohol use disorder, but she declined this. She did meet with recovery analyst and has counseling set up. She was given 500mg disulfuram prior to discharge. She stated she has a sponsor and is planning to attend noon AA meeting. We also discussed outpatient use markers of alcohol abstinence. Ethyl Glucunoride (urine marker of alcohol in the past 5 days) and phosphatidylethanol (blood test marker of alcohol use in the last 1-2 weeks) are available at [facility] lab as sendouts and could be used for this purpose. Regarding her Vyvanse, she mentioned she would like to lower the dose to 40mg, but this was deferred to PCP. Sertraline 75mg was continued as inpatient. She has been inconsistent with this recently. Dose titration as outpatient. She did get mirtazipine for sleep while inpatient but this was not continued. Home Meds and New Rx's Prescriptions: New multivitamin [Multiple Vitamins] Tablet 1 tab PO QAM Qty: 30 0RF Continued sertraline 50 mg tablet 50 mg PO HS Patient Comments: TAKE ONE TABLET BY MOUTH EVERY DAY WITH 25MG TABLET FOR A TOTAL DAILY DOSE OF 75MG sertraline 25 mg tablet 25 mg PO HS Patient Comments: TAKE ONE TABLET BY MOUTH EVERY DAY WITH 50MG TABLET FOR TOTAL DAILY DOSE OF 75MG disulfiram 250 mg tablet 250 mg PO DAILY Patient Comments: TAKE ONE TABLET BY MOUTH EVERY DAY lisdexamfetamine 50 mg capsule 50 mg PO DAILY Patient Comments: TAKE ONE CAPSULE BY MOUTH EVERY DAY Discharge Instructions Instructions: Alcohol Use Disorder (DC) Stand Alone Forms: Nursing Discharge Form Referrals: Randolph Harvey [Primary Care Provider] - 02/13/24 12:50 pm (Appointment is with, Blanche Chester. ) Activity:: Activity as Tolerated Equipment/Supplies:: No Equipment Needed Diet:: As Tolerated Discharge Orders Discharge Orders: Discharge Order (Routine); Ordered 02/12/24 Ordered By: Margarito Curry DS: Summary Time Spent with Patient providing and/or coordinating discharge services: Greater than 30 minutes Status at Discharge Functional status at discharge: independent ambulation Overall status at discharge: patient is back to baseline Mental Status: mental status grossly normal Speech and Movement: speech and movement normal Mood: congruent mood Affect: normal affect Quality:SDOH Health Related Social Needs: Health related social needs risk of homeless Health related social needs details FLOR Referrals and interventions: pt reports rent is paid until March Exam Narrative Exam Narrative: GEN: Alert and oriented, less anxious, sitting in bed, no acute distress. LUNGS: CTAB with normal effort CV: RRR with no murmurs, gallops, or rubs. EXT: no cyanosis, clubbing. no pitting edema NEURO: Normal speech and coordination. No tremor PSYCH: normal thought process. Psych Mental Status: mental status grossly normal Speech and Movement: speech and movement normal Mood: congruent mood Affect: normal affect DS: Data Vitals/I&O Vitals and I&O: Vital Signs Temperature 36.4 C L 02/12/24 11:11 Temperature Source Temporal Artery Scan 02/12/24 11:11 Pulse 61 02/12/24 11:11 Pulse Rhythm Regular 02/12/24 08:32 Pulse 59 L 02/11/24 11:10 Respiratory Rate 17 02/12/24 11:11 Respiratory Effort Normal 02/12/24 08:32 Respiratory Depth Normal 02/12/24 08:32 Respiratory Pattern Normal 02/12/24 08:32 Blood Pressure 116/86 02/12/24 11:11 Blood Pressure Mean 100 02/11/24 11:10 Blood Pressure Position Sitting 02/10/24 15:21 Pulse Oximetry 100 02/12/24 11:11 Oxygen Delivery Method Room Air 02/12/24 11:11 Oxygen Flow Rate 0 02/12/24 11:11 Pain Level 0 02/12/24 07:43 Comment headache and abdominal pain 02/11/24 13:50 Intake & Output 02/11/24 02/11/24 02/12/24 11:59 23:59 11:59 Intake Total 750 / 1150 400 / 1150 120 / 120 Output Total 100 / 100 Balance 750 / 1050 300 / 1050 120 / 120 Intake: IV 0 / 0 Oral 750 / 1150 400 / 1150 120 / 120 Output: Urine 100 / 100 Other: Urine Color Yellow Yellow Urine Appearance Clear Clear Comment patient reports voiding independently in the ICU toilet. void not viewed. pt reports she has voided once since 1800 per patient she has been up to the bathroom Stool Size Moderate Stool Characteristics Soft Brown Voiding Methods Toilet PFSH All Active Problems (Updated 02/11/24 @ 08:32 by Margarito Curry) Smoker (Acute) Alcohol use disorder (Chronic) Anxiety (Chronic) Alcohol withdrawal (Acute) Alcoholic hepatitis (Chronic) Alcohol use disorder, severe, dependence (Chronic) Herpes simplex type 1 infection (Acute 12/19/16) Eczema (Chronic) ADHD (attention deficit hyperactivity disorder), combined type (Chronic) Generalized anxiety disorder (Chronic) Depression (Acute) Medical History (Updated 02/11/24 @ 08:32 by Margarito Curry) Benzodiazepine abuse Presence of intrauterine contraceptive device (IUD) Paragard IUD placed 12/01/23 History of cervical dysplasia December 2022: LSIL/HPV+ -->[place]: pending January 2022: colp --> CIN1 October 2021: LSIL/No HPV October 2020: Normal pap/No HPV Apr 2019: Normal pap/Neg HPV Apr 2018: ASCUS/HPV+ Neoplasm of uncertain behavior, unspecified new pt visit at [facility] Derm 05/24/19. Vanessa Bryan MD History of calculus of kidney during (12/19/16) History of substance abuse (12/19/16) History of acute pyelonephritis Surgical History EGD w/Bx for H.Pylori (07/29/08) [facility] Cystoscopy (01/05/18) [facility] Urology with R ureteral stent placement Family History Father , OD at age 42. Substance abuse Essential hypertension Mother Mental disorder Bipolar d/o Neoplasm small cell neuroendocrine carcinoma Sister Substance abuse Mental disorder Bipolar d/o Brother Substance abuse Mental disorder Bipolar d/o Brother Substance abuse Mental disorder Bipolar d/o Grandmother Neoplasm Breast CA Social History Smoking/Tobacco Use Status: Current every day Tobacco Type: cigarettes and e- cigarettes Tobacco: How many years used: 10 Quit status: has quit before Counseling given: provider counseling Smoking risk assessment performed?: Yes Alcohol Intake: current Alcohol Intake frequency: 3 or more drinks per day Alcohol type: beer, wine and hard liquor Details: Decided to quit drinking. Stopped 01/2019 Drug use: Never Substance use type: marijuana Adopted: No Foster care: No Household members: significant other and children Housing: apartment Number of Children: 2 current occupation: [employer] Pets and animals: Yes (1 dog) What type of physical activity do you participate in: regular exercise Duration: other Details: cleaning Frequency: daily Do you feel safe at home: Yes Do you feel safe in your relationship?: Yes Female Reproductive History Menstrual Duration of menses: 6-7 days control method: copper IUCD History History 2 Para 2 Hx # Term Pregnancies 2 Multiple births 0 Hx # Pregnancies 0 Ectopic pregnancies 0 AB induced 0 Hx Number of Living Children 2 AB spontaneous 0 Past Pregnancies Del. Date GA/Weeks # Preg Succ Route Wgt Sex Labor Lgth Anesth esia Location Prov [facility] 11/20/16 40 vaginal 2920.001 g Female 9 hours regional 12/22/18 40 No vaginal 3685.438 g Female Sudhir Bauer CNM Delivery Date: 11/20/16 Last Updated by: Vale Bauer Delivered at [facility] Time Spent with Patient Time Spent with Patient: <45 minutes Time was spent: preparing to see the patient(eg.review tests), obtaining and/or reviewing separately otained hiistory, ordering medications,tests, procedures, referring, communicating with other health pet care assistant, counseling the patient and care coordination
== END 2024-02-12 11:48 | disposition home or self-care (01) | DRG 897 ==
LOC: ER 02-10 00:48 → ICU 02-10 00:58 → MS 02-11 13:49
PROVIDERS: Family Medicine; Admitting Provider Family Medicine; Emergency Provider Emergency Medicine; PCP Student in an Organized Health Care Education/Training Program; Visit Provider Family Medicine
DX: F10.230 Alcohol dependence with withdrawal, uncomplicated (principal); K70.10 Alcoholic hepatitis without ascites; F34.1 Dysthymic disorder; F41.1 Generalized anxiety disorder; F17.210 Nicotine dependence, cigarettes, uncomplicated; F90.2 Attention-deficit hyperactivity disorder, combined type; L30.9 Dermatitis, unspecified
CPT/HCPCS: 00123; 36415; 80053; 80076; 80307; 85027; 93005; 96360; 96361; 99285; J1650; 80320; 81003; 81015; 83735; 84100; 84484; 84703; 85025; 85610; 93010; 99223; 99233; 99238; J2560; J3475

== ENCOUNTER 2024-03-17 09:43 | Emergency (ER) | payer BC, SELFPAY ==
--- OUTSIDE RECORDS SUMMARY | 2024-03-17 09:54 | XMS_ITS | Encounter Summary ---
Author Organization [facility] Address [address] [place] [address] Care Team Providers Care Java Technical Architect Name Role Phone Margarito Curry MD Primary Care Provider [phone] Encounter Details Date Type Department Care Team (Late st Contact Info) Description 12/02/2023 Lab Requisition [facility] Pathology & Laboratory Medicine - [facility] [address] [place] [address] Zeny Clemente MD [address] [place] [phone] Encounter for screening for infections with a predominantly sexual mode of transmission Social History Tobacco Use Types Packs/Day Years Used Date Smoking Tobacco: Never Assessed Cigarettes Alcohol Use Standard Drinks/Week Comments Yes 0 (1 standard drink = 0.6 oz pur e alcohol) PHQ-2 Answer Date Recorded PHQ-2 SUBTOTAL 4 10/04/2021 Interpersonal Safety Answer Date Record ed Physically Hurt Never 03/19/2020 Verbally Threaten Not on file 03/19/2020 Sex and Gender Information Value Date Recorded Sex Assigned at Not on file Gender Identity Female 09/30/2021 13:03 EST Sexual Orientation Not on file documented as of this encounter Plan of Treatment Not on file documented as of this encounter Procedures Procedure Name Priority Date/Time Associated Diagnosis Comments PAP TEST Today 12/01/2023 10:25 EDT Encounter for screening for infections with a predominantly sexual mode of transmission documented in this encounter Results * PAP TEST (12/01/2023 10:25 EDT) Specimens A. Cervix and/or Endocervix , ThinPrep Imaging System with Manual Evaluation 12/08/2023 11:46 [facility] Specimen Adequacy Satisfactory for Evaluation - transformation zone component present 12/08/2023 11:46 [facility] General Categorization Epithelial Cell Abnormality 12/08/2023 11:46 [facility] Descriptive Diagnosis Squamous Cell Abnormality - Low grade squamous intraepithelial lesion (LSIL). 12/08/2023 11:46 [facility] Educational Comments [facility] recommends following the ASCCP's management guidelines which may be found at www.asccp.org 12/08/2023 11:46 [facility] Attestation By the signature below, the attending physician certifies that they have personally conducted a gross and/or microscopic examination of the described specimens and rendered or confirmed the above diagnosis. 12/08/2023 11:46 [facility] at 1146 Clinical History See below 12/08/19 11:46 [facility] Performing Lab [facility] 12/08/2023 11:46 [facility] Scanned Images 12/08/2023 11:46 [facility] Pap Test CERVIX UTERI STRUCTURE / Unknown 12/01/2023 10:25 EDT 12/02/2023 13:35 EDT Zeny Clemente MD PATHOLOGY ORDERABLES [facility] [address] [place], [place] [id number] documented in this encounter Visit Diagnoses Diagnosis Encounter for screening for infections with a predominantly sexual mode of transmission documented in this encounter Care Teams Java Technical Architect Relationship Specialty Start Date End Date Margarito Curry MD [address] [place] [address] PCP - General 09/18/21 documented as of this encounter
--- OUTSIDE RECORDS SUMMARY | 2024-03-17 09:54 | XMS_ITS | Encounter Summary ---
Author Organization [facility] Address [address] [place] [address] Care Team Providers Care Rerecording Mixer Name Role Phone Margarito Curry MD Primary Care Provider [phone] Encounter Details Date Type Department Care Team (Late st Contact Info) Description 09/13/2022 14:45 EST Phlebotomy Only [facility] 2 Phlebotomy [address], [place] [id number] Geospatial Scientist, Acc Phlebotomy Other specified general medical examination (Primary Dx) Social History Tobacco Use Types Packs/Day Years [...] Procedure Name Priority Date/Time Associated Diagnosis Comments QUANTIFERON MITOGEN (PERFORMABLE) Routine 09/13/2022 14:46 EST Other specified general medical examination QUANTIFERON TB2 (PERFORMABLE) Routine 09/13/2022 14:46 EST Other specified general medical examination QUANTIFERON TB1 (PERFORMABLE) Routine 09/13/2022 14:46 EST Other specified general medical examination QUANTIFERON NIL (PERFORMABLE) Routine 09/13/2022 14:46 EST Other specified general medical examination QUANTIFERON INTERPRETATION (PERFORMABLE) Today 09/13/2022 14:46 EST Other specified general medical examination QUANTIFERON TB GOLD PLUS Routine 09/13/2022 14:46 EST Other specified general medical examination documented in this encounter Results * QUANTIFERON INTERPRETATION (PERFORMABLE) (09/13/2022 14:46 EST) Quantiferon Interpretation Negative Negative 09/16/2022 13:28 EST [facility] Comment:No interferon-gamma response to M. tuberculosis antigens was detected. ??Infection with M. tuberculosis is unlikely. A single negative result does not exclude infection with M. tuberculosis. ??In patients at high risk for M. tuberculosis infection, a second test should be considered. TB1 Ag minus Nil 0.00 IU/ml 09/16/19 13:28 EST [facility] TB2 Ag minus Nil 0.00 IU/mL 09/16/19 13:28 EST [facility] Blood VENOUS BLOOD / Unknown Venipuncture / Unknown 09/13/2022 14:46 EST 09/16/2022 13:20 EST Narrative [facility] - 09/16/2022 13:28 EST Results were obtained with the Qiagen QuantiFERON-TB Gold Plus CLIA. New platform in use 04/25/2021 Lawson Castaneda DO IMMUNOLOGY AND SEROL OGY ORDERABLES Performing Organization Address City/[facility] Co de Phone Number [facility] [address] [place] [address] * QUANTIFERON MITOGEN (PERFORMABLE) (09/13/2022 14:46 EST) Blood VENOUS BLOOD / Unknown Venipuncture / Unknown 09/13/2022 14:46 EST 09/13/2022 14:54 EST Lawson Castaneda DO IMMUNOLOGY AND SEROL OGY ORDERABLES Performing Organization Address City/[facility]/ZIP Co de Phone Number [facility] [address] [place] [address] * QUANTIFERON TB2 (PERFORMABLE) (09/13/2022 14:46 EST) Blood VENOUS BLOOD / Unknown Venipuncture / Unknown 09/13/2022 14:46 EST 09/13/2022 14:54 EST Lawson Greyson Leonel WOOD IMMUNOLOGY AND SEROL OGY ORDERABLES Performing Organization Address [facility] Co de Phone Number [facility] [address] [place] [address] * QUANTIFERON TB1 (PERFORMABLE) (09/13/2022 14:46 EST) Blood VENOUS BLOOD / Unknown Venipuncture / Unknown 09/13/2022 14:46 EST 09/13/2022 14:54 EST Lawson Castaneda DO IMMUNOLOGY AND SEROL OGY ORDERABLES Performing Organization Address [facility] [place] [facility] de Phone Number [facility] [address] [place] [address] * QUANTIFERON NIL (PERFORMABLE) (09/13/2022 14:46 EST) Blood VENOUS BLOOD / Unknown Venipuncture / Unknown 09/13/2022 14:46 EST 09/13/2022 14:54 EST Lawson Castaneda DO IMMUNOLOGY AND SEROL OGY ORDERABLES Performing Organization Address [facility] Co de Phone Number [facility] [address] [place] [address] documented in this encounter Visit Diagnoses Diagnosis Other specified general medical examination- Primary documented in this encounter Care Teams Rerecording Mixer Relationship Specialty Start Date End Date Margarito Curry MD [facility] [place] [place] [address] PCP - General 09/18/21 documented as of this encounter
--- OUTSIDE RECORDS SUMMARY | 2024-03-17 09:54 | XMS_ITS | Encounter Summary ---
Author Organization [facility] Address [address] [place] [address] Care Team Providers Care Outpatient Scheduler Name Role Phone Margarito Curry MD Primary Care Provider [phone] Encounter Details Date Type Department Care Team (Late st Contact Info) Description 11/03/2021 Lab Requisition [facility] Pathology & Laboratory Medicine - [facility] [address] [place], [place] [phone] Outr Resulting Lab, Provider Social History Tobacco Use Types Packs/Day Years [...] 13:03 EST Sexual Orientation Not on file COVID-19 Exposure Response Date Recorded In the last month, have you been in contact with someone who was confirmed or suspected to have Coronavirus / COVID-19? No / Unsure 10/04/2021 0:52 EST documented as of this encounter Plan of Treatment Not on file documented as of this encounter Procedures Procedure Name Priority Date/Time Associated Diagnosis Comments HEPATITIS C AB W REFLEX TO HCV RNA BY PCR Routine 11/02/2021 12:50 EDT HEPATITIS B SURFACE ANTIGEN Routine 11/02/2021 12:50 EDT documented in this encounter Results * HEPATITIS B SURFACE ANTIGEN (11/02/2021 12:50 EDT) Hep B Surface Ag Negative Negative 11/05/2021 10:07 EDT [facility] Blood VENOUS BLOOD / Unknown 11/02/2021 12:50 EDT 11/03/2021 21:52 EDT Provider Outr Resulting Lab CHEMISTRY & BLOOD GAS ORDERABLES Performing Organization Address City/[facility]/ZIP Co de Phone Number [facility] [address] [place] [address] * HEPATITIS C AB W REFLEX TO HCV RNA BY PCR (11/02/2021 12:50 EDT) Hep C Antibody Negative Negative 11/05/2021 11:09 EDT [facility] Blood VENOUS BLOOD / Unknown 11/02/2021 12:50 EDT 11/03/2021 21:52 EDT Provider Outr Resulting Lab CHEMISTRY & BLOOD GAS ORDERABLES Performing Organization Address City/[facility] Co de Phone Number [facility] [address] [place] [address] documented in this encounter Visit Diagnoses Not on filedocumented in this encounter Additional Health Concerns Infection Onset Date Last Indicated Resolved Time Influenza 07/22/2022 07/22/2022 08/01/2022 22:1 5 EST documented as of this encounter Care Teams Outpatient Scheduler Relationship Specialty Start Date End Date Margarito Curry MD [place] [place] [address] PCP - General 09/18/21 documented as of this encounter
--- OUTSIDE RECORDS SUMMARY | 2024-03-17 09:54 | XMS_ITS | Encounter Summary ---
Author Organization [facility] Address [address] [place] [address] Care Team Providers Care Adobe Ball Mixer Name Role Phone Margarito Curry MD Primary Care Provider [phone] Encounter Details Date Type Department Care Team (Late st Contact Info) Description 11/03/2021 Lab Requisition [facility] Path[facility] & [facility] [address] [place], [place] [phone] Outr Resulting Lab, Provider Social History Tobacco [...] Procedure Name Priority Date/Time Associated Diagnosis Comments SYPHILIS SEROLOGY Routine 11/02/2021 12: 50 EDT documented in this encounter Results * SYPHILIS SEROLOGY (11/02/2021 12:50 EDT) Syphilis Serology Negative Negative 11/05/2021 11:59 EDT [facility] Blood VENOUS BLOOD / Unknown 11/02/2021 12:50 EDT 11/03/2021 21:52 EDT Provider Outr Resulting Lab IMMUNOLOGY A ND SEROLOGY ORDERABLES Performing Organization Address City/State/[facility] Co de Phone Number [facility] [address] [place] [address] documented in this encounter Visit Diagnoses Not on filedocumented in this encounter Additional Health Concerns Infection Onset Date Last Indicated Resolved Time Influenza 07/22/2022 07/22/2022 08/01/2022 22:1 5 EST documented as of this encounter Care Teams Adobe Ball Mixer Relationship Specialty Start Date End Date Margarito Curry MD [address] [place] [address] PCP - General 09/18/21 documented as of this encounter
--- OUTSIDE RECORDS SUMMARY | 2024-03-17 09:54 | XMS_ITS | Encounter Summary ---
Author Organization [facility] Address [address] [place] [address] Care Team Providers Care Linseed Oil Temperer Name Role Phone Margarito Curry MD Primary Care Provider [phone] Encounter Details Date Type Department Care Team (Late st Contact Info) Description 07/22/2022 Lab Requisition [facility] Pathology & Laboratory Medicine - [facility] [address] [place], [place] [phone] Outr Resulting Lab, Provider Social History Tobacco [...] Procedure Name Priority Date/Time Associated Diagnosis Comments ZZHN INFLUENZA A AND B, RSV PCR Routine 07/22/2022 12:16 EST documented in this encounter Results * (ABNORMAL) INFLUENZA A AND B,RSV PCR (07/22/2022 12:16 EST) FLU A RNA Result (FLARES) Positive(A) Negative 07/23/2022 1:36 EST [facility] FLU B RNA Result (FLBRES) Negative Negative 07/23/2022 1:36 EST [facility] RSV RNA Result (RSVRES) Negative Negative 07/23/2022 1:36 EST [facility] Swab ENTIRE NASOPHARYNX / Unknown 07/22/2022 12:16 EST 07/22/2022 22:23 EST Provider Outr Resulting Lab MICROBIOLOGY - GENERAL ORDERABLES Performing Organization Address City/State/[facility] Co de Phone Number [facility] [address] [place] [address] documented in this encounter Visit Diagnoses Not on filedocumented in this encounter Additional Health Concerns Infection Onset Date Last Indicated Resolved Time Influenza 07/22/2022 07/22/2022 08/01/2022 22:1 5 EST documented as of this encounter Care Teams Linseed Oil Temperer Relationship Specialty Start Date End Date Margarito Curry [place] [address] PCP - General 09/18/21 documented as of this encounter
--- OUTSIDE RECORDS SUMMARY | 2024-03-17 09:54 | XMS_ITS | Encounter Summary ---
Author Organization [facility] Address [address] [place] [address] Care Team Providers Care Site Supervising Technical Operator Name Role Phone Margarito Curry MD Primary Care Provider [phone] Encounter Details Date Type Department Care Team (Late st Contact Info) Description 12/31/2023 Lab Requisition [facility] Pathology & Laboratory Medicine - [facility] [address] [place] [address] Zeny Clemente MD [address] [place] [phone] Encounter for other general examination Social History Tobacco Use Types Packs/Day Years [...] Procedure Name Priority Date/Time Associated Diagnosis Comments SURGICAL PATHOLOGY Today 12/30/2023 15 :20 EDT Encounter for other general examination documented in this encounter Results * SURGICAL PATHOLOGY (12/30/2023 15:20 EDT) Note to Patient The following pathology results have been interpreted by your pathologist and may be available to you before your health provider has had the opportunity to review them. Please allow time for your provider to receive these results and explore management options, if applicable. 01/02/2024 11:[address] [facility] Final Diagnosis A. CERVIX, 7 O' CLOCK, CYTOBRUSH: - Superficial fragments of benign squamous mucosa and endocervical glands. 01/02/2024 11:[address] [facility] Diagnosis Comment The specimen is markedly fragmented and poorly preserved, limiting evaluation. No definitive dysplasia is identified. Deeper sections have been examined. 01/02/2024 11:[address] [facility] Attestation There was significant resident/fellow involvement in the diagnostic evaluation of this case. By the signature below, the attending physician certifies that they have personally conducted a gross and/or microscopic examination of the described specimens and rendered or confirmed the above diagnosis. 01/02/2024 11:12 [facility] at 1112 Clinical History LSIL 01/02/2024 11:12 [facility] Gross Description A. Received in formalin on a Histologic SFT-1000 device labelled with proper patient identification (initials C, E) and 7 o'clock cervix is an aggregate of transparent su mucus and admixed su wispy tissue fragments (0.6 x 0.5 x 0.1 cm). Entirely submitted in A1. Pao Vallecillo 12/31/2023 9:10 01/02/2024 11:[address] [facility] Resident/Vikas w: Kary Javier MD 01/02/2024 11:[address] [facility] Performing Lab [facility] 01/02/2024 11:12 [facility] Scanned Images 01/02/2024 11:12 [facility] Tissue CERVIX UTERI STRUCTURE / Unknown 12/30/2023 15:20 EDT 12/31/2023 8:16 EDT Zeny Clemente MD PATHOLOGY ORDERABLES [facility] [address] [place] [address] documented in this encounter Visit Diagnoses Diagnosis Encounter for other general examination documented in this encounter Care Teams Site Supervising Technical Operator Relationship Specialty Start Date End Date Margarito Curry MD [address] [place] [address] PCP - General 09/18/21 documented as of this encounter
--- OUTSIDE RECORDS SUMMARY | 2024-03-17 09:54 | XMS_ITS | Clinical Summary ---
Author Organization [facility] Address [address] [place] [address] Care Team Providers Care Top Spotter Name Role Phone Margarito Curry MD Primary Care Provider [phone] Allergies Active Allergy Reactions Criticality Noted Date Comments Buspirone Other (See Comments) 09/30/2021 AMS Penicillins 04/08/2011 Medications Medication Sig Dispensed Refills Start Date End Date Status diazePAM (VALIUM) 10 mg tablet Take 10 mg p.o. 4 times daily for 48 hours then taper as per bridge program protocol. 16 Tablet 09/30/2021 Active Encounters Date Type Department Care Team Description 02/02/2024 Lab Requisition [facility] Pathology & Laboratory [address] [address] Outr Resulting Lab, Provider 12/31/2023 Lab Requisition [facility] Pathology & Laboratory [facility] [address] [place] [address] Zeny Clemente MD Encounter for other general examination from Last 3 Months Medical History Medical History Date Comments Anxiety Depression Social History Tobacco Use Types Packs/Day Years [...] 13:03 EST Sexual Orientation Not on file Obstetrics History Last Filed Vital Signs Vital Sign Reading Time Taken Comments Blood Pressure 135/85 10/04/2021 0153 EST Pulse 80 04/09/2011 0739 EDT Temperature 36.9 ??C (98.4 ??F) 10/04/2021 0039 EST Respiratory Rate 18 10/04/2021 0153 EST Oxygen Saturation 100% 10/04/2021 0153 EST Inhaled Oxygen Concentration - - Weight - - Height - - Body Mass Index - - Plan of Treatment Health Maintenance Due Date Last Done Comments Hepatitis B Vaccine (1 of 3 - 19+ 3-dose series) 2011 COVID-19 Vaccine (2022- season) 2023 Hepatitis C Screen Completed 10/31/2023, 11/02/2021 Procedures Procedure Name Priority Date/Time Associated Diagnosis Comments T3 FREE Routine 02/02/2024 10:30 EDT T3, TOTAL Routine 02/02/2024 10:30 EDT SURGICAL PATHOLOGY Today 12/30/2023 15 :20 EDT Encounter for other general examination HEPATITIS C AB W REFLEX TO HCV RNA BY PCR Routine 10/31/2023 16:55 EDT from Last 3 Months or Most Recently Relevant to Health Maintenance Results * T3 FREE (02/02/2024 10:30 EDT) T3, Free 5.2 2.8 - 5.3 pg/mL 02/02/2024 22:41 EDT [facility] Blood VENOUS BLOOD / Unknown 02/02/2024 10:30 EDT 02/02/2024 22:07 EDT Provider Outr Resulting Lab CHEMISTRY & BLOOD GAS ORDERABLES [facility] [address] [place] [address] * T3, TOTAL (02/02/2024 10:30 EDT) T3, Total 150 97 - 169 ng/dL 02/02/2024 22:56 EDT [facility] Blood VENOUS BLOOD / Unknown 02/02/2024 10:30 EDT 02/02/2024 22:07 EDT Provider Outr Resulting Lab CHEMISTRY & BLOOD GAS ORDERABLES [facility] [address] [place], [place] [id number] * SURGICAL PATHOLOGY (12/30/2023 15:20 EDT) Note to Patient The following pathology results have been interpreted by your pathologist and may be available to you before your health provider has had the opportunity to review them. Please allow time for your provider to receive these results and explore management options, if applicable. 01/02/2024 11:12 [facility] Final Diagnosis A. CERVIX, 7 O' CLOCK, CYTOBRUSH: - Superficial fragments of benign squamous mucosa and endocervical glands. 01/02/2024 11:12 T [facility] Diagnosis Comment The specimen is markedly fragmented and poorly preserved, limiting evaluation. No definitive dysplasia is identified. Deeper sections have been examined. 01/02/2024 11:12 [facility] Attestation There was significant resident/fellow involvement in the diagnostic evaluation of this case. By the signature below, the attending physician certifies that they have personally conducted a gross and/or microscopic examination of the described specimens and rendered or confirmed the above diagnosis. 01/02/2024 11:12 [facility] at [address]12 Clinical History LSIL 01/02/2024 11:12 [facility] Gross Description A. Received in formalin on a Histologic SFT-1000 device labelled with proper patient identification (initials C, E) and 7 o'clock cervix is an aggregate of transparent su mucus and admixed su wispy tissue fragments (0.6 x 0.5 x 0.1 cm). Entirely submitted in A1. Pao Vallecillo 12/31/2023 9:10 01/02/2024 11:12 [facility] Resident/Vikas w: Kary Javier MD 01/02/2024 11:12 EDT [facility] Performing Lab [facility] 01/02/2024 11:12 EDT [facility] Scanned Images 01/02/2024 11:12 EDT [facility] Tissue CERVIX UTERI STRUCTURE / Unknown 12/30/2023 15:20 EDT 12/31/2023 8:16 EDT Zeny Clemente MD PATHOLOGY ORDERABLES [facility] [address] [place] [address] * HEPATITIS C AB W REFLEX TO HCV RNA BY PCR (10/31/2023 16:55 EDT) Hep C Antibody Negative Negative 11/03/2023 10:39 EDT [facility] Blood VENOUS BLOOD / Unknown 10/31/2023 16:55 EDT 11/01/2023 21:34 EDT Provider Outr Resulting Lab CHEMISTRY & BLOOD GAS ORDERABLES [facility] [address] [place] [address] from Last 3 Months or Most Recently Relevant to Health Maintenance Care Teams Top Spotter Relationship Specialty Start Date End Date Margarito Curry MD [address] [facility], [place] [address] PCP - General 09/18/21
--- OUTSIDE RECORDS SUMMARY | 2024-03-17 09:54 | XMS_ITS | Encounter Summary ---
Author Organization [facility] Address [address] [place] [address] Care Team Providers Care Media Professional Name Role Phone Margarito Curry MD Primary Care Provider [phone] Encounter Details Date Type Department Care Team (Late st Contact Info) Description 12/01/2023 Lab Requisition [facility] Pathology & Laboratory Medicine - [facility] [address] [place], [place] [phone] Outr Resulting Lab, Provider Social History Tobacco [...] Procedure Name Priority Date/Time Associated Diagnosis Comments HIV 1/2 ANTIGEN AND ANTIBODY, 4TH GENERATION Routine 12/01/2023 10:39 EDT documented in this encounter Results * HIV 1/2 ANTIGEN AND ANTIBODY, 4TH GENERATION (12/01/2023 10:39 EDT) HIV 1 and 2 Antibody/p24 Antigen, 4th Generation Negative Negative 12/01/2023 20:[address] [facility] Comment:If acute HIV-1 infec tion is suspected in a high risk patient, submit plasma specimen for HIV-1 RNA quantitation test. Blood VENOUS BLOOD / Unknown 12/01/2023 10:39 EDT 12/01/2023 17:[address] [facility] - 12/01/2023 20:11 EDT Fourth Generation assay performed on the Siemens Veridaur XPT. Provider Outr Resulting Lab IMMUNOLOGY A ND SEROLOGY ORDERABLES [facility] [address] [place], [place] [phone] documented in this encounter Visit Diagnoses Not on filedocumented in this encounter Care Teams Media Professional Relationship Specialty Start Date End Date Margarito Curry MD [address] [place] [address] PCP - General 09/18/21 documented as of this encounter
--- OUTSIDE RECORDS SUMMARY | 2024-03-17 09:54 | XMS_ITS | Encounter Summary ---
Author Organization [facility] Address [address] [place] [address] Care Team Providers Care Gear Inspector Name Role Phone Margarito Curry MD Primary Care Provider [phone] Encounter Details Date Type Department Care Team (Late st Contact Info) Description 11/01/2023 Lab Requisition [facility] Pathology & Laboratory Medicine - [facility] [address] [place], [place] [phone] Outr Resulting Lab, Provider Social History Tobacco [...] Date/Time Associated Diagnosis Comments SYPHILIS SEROLOGY Routine 10/31/2023 16: 55 EDT HEPATITIS C AB W REFLEX TO HCV RNA BY PCR Routine 10/31/2023 16:55 EDT documented in this encounter Results * SYPHILIS SEROLOGY (10/31/2023 16:55 EDT) Syphilis Serology Negative Negative 11/03/2023 11:17 EDT [facility] Blood VENOUS BLOOD / Unknown 10/31/2023 16:55 EDT 11/01/2023 21:34 EDT Provider Outr Resulting Lab IMMUNOLOGY A ND SEROLOGY ORDERABLES Performing Organization Address City/[facility]/ZIP Co de Phone Number [facility] [address] [place] [address] * HEPATITIS C AB W REFLEX TO HCV RNA BY PCR (10/31/2023 16:55 EDT) Hep C Antibody Negative Negative 11/03/2023 10:39 EDT [facility] Blood VENOUS BLOOD / Unknown 10/31/2023 16:55 EDT 11/01/2023 21:34 EDT Provider Outr Resulting Lab CHEMISTRY & BLOOD GAS ORDERABLES Performing Organization Address City/[facility] Co de Phone Number [facility] [address] [place], [place] [address] documented in this encounter Visit Diagnoses Not on filedocumented in this encounter Care Teams Gear Inspector Relationship Specialty Start Date End Date Margarito Curry MD [address] [place] [address] PCP - General 09/18/21 documented as of this encounter
--- OUTSIDE RECORDS SUMMARY | 2024-03-17 09:54 | XMS_ITS | Encounter Summary ---
Author Organization [facility] Address [address] [place] [address] Care Team Providers Care Gas Turbine Powerplant Mechanic Helper Name Role Phone Margarito Curry MD Primary Care Provider [phone] Encounter Details Date Type Department Care Team (Late st Contact Info) Description 12/01/2023 Lab Requisition [facility] Pathology & Laboratory Medicine - [facility] [address] [place], [place] [id number] Outr Resulting Lab, Provider Social History Tobacco [...] Procedure Name Priority Date/Time Associated Diagnosis Comments CHRONIC HEPATITIS PROFILE, UNKNOWN TYPE Routine 12/01/2023 10:39 EDT documented in this encounter Results * CHRONIC HEPATITIS PROFILE, UNKNOWN TYPE (12/01/2023 10:39 EDT) Hep B Surface Ag Negative Negative 12/01/19 20:15 EDT [facility] Hep B Surface Ab, Quantitative <3.1 See Note mIU/mL 12/01/2023 20:15 EDT [facility] Comment: Reference Range for Hep B Surface Ab, Quant: Positive: >= 10.0 mIU/mL Negative: ??< 10.0 mIU/mL Patient is presumed to not be immune to infection with Hepatitis B Virus. Hep B Surface Ab, Qualitative Negative See Note 12/01/2023 20:15 EDT [facility] Comment: Reference Range for Hep B Surface Ab, Qual: Unvaccinated: ??Negative Vaccinated: ??Positive Hepatitis B Core Ab, Total Negative Negative 12/01/2023 20:15 EDT [facility] Hep C Antibody Negative Negative 12/01/2023 20:15 EDT [facility] Blood VENOUS BLOOD / Unknown 12/01/2023 10:39 EDT 12/01/2023 17:16 EDT Provider Outr Resulting Lab CHEMISTRY & BLOOD GAS ORDERABLES Performing Organization Address City/State/[facility] Co de Phone Number [facility] [address] [place], [place] [address] documented in this encounter Visit Diagnoses Not on filedocumented in this encounter Care Teams Gas Turbine Powerplant Mechanic Helper Relationship Specialty Start Date End Date Margarito Curry MD [address] [place] [address] PCP - General 09/18/21 documented as of this encounter
--- OUTSIDE RECORDS SUMMARY | 2024-03-17 09:54 | XMS_ITS | Encounter Summary ---
Author Organization [facility] Address [address] [place] [address] Care Team Providers Care Sales Representative [employer] Name Role Phone Margarito Curry MD Primary Care Provider [phone] Encounter Details Date Type Department Care Team (Late st Contact Info) Description 12/01/2023 Lab Requisition [facility] Pathology & Laboratory Medicine - [facility] [address] [place], [place] [phone] Outr Resulting Lab, Provider Social History Tobacco [...] Date/Time Associated Diagnosis Comments SYPHILIS SEROLOGY Routine 12/01/2023 10: 39 EDT documented in this encounter Results * SYPHILIS SEROLOGY (12/01/2023 10:39 EDT) Syphilis Serology Negative Negative 12/02/2023 10:18 EDT [facility] Blood VENOUS BLOOD / Unknown 12/01/2023 10:39 EDT 12/01/2023 17:15 EDT Provider Outr Resulting Lab IMMUNOLOGY A ND SEROLOGY ORDERABLES [facility] [address] [place] [address] documented in this encounter Visit Diagnoses Not on filedocumented in this encounter Care Teams Sales Representative [employer] Relationship Specialty Start Date End Date Margarito Curry MD [facility] [address] [place], [place] [phone] PCP - General 09/18/21 documented as of this encounter
--- OUTSIDE RECORDS SUMMARY | 2024-03-17 09:54 | XMS_ITS | Encounter Summary ---
Author Organization [facility] Address [address] [place] [address] Care Team Providers Care Dispatcher Clerk Name Role Phone Margarito Curry MD Primary Care Provider [phone] Encounter Details Date Type Department Care Team (Late st Contact Info) Description 11/19/2022 Lab Requisition [facility] Pathology & Laboratory Medicine - [facility] [address] [place] [address] Zeny Clemente MD [address] [place] [phone] Encounter for other general examination Social [...] Date/Time Associated Diagnosis Comments PAP TEST Today 11/19/2022 13:10 EDT Encounter for other general examination HPV GENOTYPES 16 AND 18/45 Today 11/19/2022 13:10 EDT Encounter for other general examination CHLAMYDIA/N. GONORRHOEAE AMPLIFIED NUCLEIC ACID, THINPREP Today 11/19/2022 13:10 EDT HPV DNA DETECTION WITH GENOTYPING, PCR Today 11/19/2022 13:10 EDT Encounter for other general examination documented in this encounter Results * HPV GENOTYPES 16 AND 18/45 (11/19/2022 13:10 EDT) HPV High Risk type 16, PCR Negative Negative 12/05/2022 15:11 EDT [facility] HPV18/45 RNA (HPV18/45) Negative Negative 12/05/2022 15:11 EDT [facility] Papanicolaou smear specimen (specimen) CERVIX UTERI STRUCTURE / Unknown 11/19/2022 13:10 EDT 12/02/2022 10:05 EDT Zeny Clemente MD MICROBIOLOGY - GENER AL ORDERABLES Performing Organization Address City/[facility] Co de Phone Number [facility] [address] [place] [address] * (ABNORMAL) HUMAN PAPILLOMAVIRUS (HPV) DETECTION-HIGH RISK TYPES (11/19/2022 13:10 EDT) HPV other High Risk types, PCR Positive( A) Negative 12/05/2022 23:41 EDT [facility] Comment:E6 OR E7 mRNA from o ne or more types of HPV types 16,18,31,33,35,39,45,51,52,56,58,59,66, and 68 is detected by inspector final assembly conveyor line mediated amplification. High and intermediate risk HPV types are associated with most squamous intraepithelial lesions and cervical cancers. Papanicolaou smear specimen (specimen) CERVIX UTERI STRUCTURE / Unknown 11/19/2022 13:10 EDT 12/02/2022 10:05 EDT Zeny Clemente MD MICROBIOLOGY - GENER AL ORDERABLES Performing Organization Address City/[facility] Co de Phone Number [facility] [address] [place] [address] * PAP TEST (11/19/2022 13:10 EDT) Specimens A. Cervix and/or Endocervix , ThinPrep Imaging System with Manual Evaluation 12/05/2022 23:41 [facility] Specimen Adequacy Satisfactory for Evaluation - transformation zone component present 12/05/2022 23:41 [facility] General Categorization Epithelial Cell Abnormality 12/05/2022 23:41 [facility] Descriptive Diagnosis Squamous Cell Abnormality - Low grade squamous intraepithelial lesion (LSIL). 12/05/2022 23:41 [facility] Educational Comments [facility] recommends following the ASCCP's management guidelines which may be found at www.asccp.org 12/05/2022 23:41 [facility] Attestation By the signature below, the attending physician certifies that they have personally conducted a gross and/or microscopic examination of the described specimens and rendered or confirmed the above diagnosis. 12/05/2022 23:41 [facility] at 2341 Clinical History See below 12/06/19 23:41 [facility] HPV The result for the Human Papillomavirus (HPV) Detection-High Risk Types is Positive . E6 OR E7 mRNA from one or more types of HPV types 16,18,31,33,35,39 ,45,51,52,56,58,5 9,66, and 68 is detected by inspector final assembly conveyor line mediated amplification. High and intermediate risk HPV types are associated with most squamous intraepithelial lesions and cervical cancers. Testing was performed on specimen [id number] and was resulted on 12/03/2022 1540 EDT by LENA, LAB INSTRUMENT RESULTS IN 12/05/2022 23:41 [facility] Genotyping 16 & 18/45 The results for the HPV Genotypes 16 and 18/45 are Negative for the HPV16 RNA and Negative for the HPV18/45 RNA (HPV18/45). Testing was performed on specimen [id number] and was resulted on 12/05/2022 1511 EDT by LENA, LAB INSTRUMENT RESULTS IN 12/05/2022 23:41 [facility] Performing Lab [facility] 12/05/2022 23:41 EDT [facility] Scanned Images 12/05/2022 23:41 EDT [facility] Papanicolaou smear specimen (specimen) CERVIX UTERI STRUCTURE / Unknown 11/19/2022 13:10 EDT 11/22/2022 8:18 EDT Zeny Clemente MD PATHOLOGY ORDERABLES Performing Organization Address City/[facility] Co de Phone Number [facility] [address] [place] [address] * CHLAMYDIA/N. GONORRHOEAE AMPLIFIED RNA, THINPREP (11/19/2022 13:10 EDT) Neisseria gonorrhoeae Result Negative Negative 11/21/2022 14:36 EDT [facility] Chlamydia trachomatis Result Negative Negative 11/21/2022 14:36 EDT [facility] Papanicolaou smear specimen (specimen) CERVIX UTERI STRUCTURE / Unknown 11/19/2022 13:10 EDT 11/21/2022 8:34 EDT Zeny Clemente MD MICROBIOLOGY - GENER AL ORDERABLES Performing Organization Address [facility] Co de Phone Number [facility] [address] [place] [address] documented in this encounter Visit Diagnoses Diagnosis Encounter for other general examination documented in this encounter Care Teams Dispatcher Clerk Relationship Specialty Start Date End Date Margarito Curry MD [place] [place] [address] PCP - General 09/18/21 documented as of this encounter
--- OUTSIDE RECORDS SUMMARY | 2024-03-17 09:54 | XMS_ITS | Encounter Summary ---
Author Organization [facility] Address [address] [place] [address] Care Team Providers Care Heavy Duty Mechanic Farm Equipment Name Role Phone Margarito Curry MD Primary Care Provider [phone] Encounter Details Date Type Department Care Team (Late st Contact Info) Description 12/01/2023 Lab Requisition [facility] [place] [facility] Pathology & Laboratory Medicine - [facility] [address] [place], [place] [phone] Outr Resulting Lab, Provider Social History Tobacco [...] Procedure Name Priority Date/Time Associated Diagnosis Comments CHLAMYDIA/N. GONORRHOEAE AMPLIFIED NUCLEIC ACID, THINPREP Today 12/01/2023 10:25 EDT documented in this encounter Results * CHLAMYDIA/N. GONORRHOEAE AMPLIFIED RNA, THINPREP (12/01/2023 10:25 EDT) Neisseria gonorrhoeae Result Negative Negative 12/02/2023 13:35 EDT [facility] Chlamydia trachomatis Result Negative Negative 12/02/2023 13:35 EDT [facility] Pap Test CERVIX UTERI STRUCTURE / Unknown 12/01/2023 10:25 EDT 12/02/2023 9:32 EDT Provider Outr Resulting Lab MICROBIOLOGY - GENERAL ORDERABLES [facility] [address] [place] [address] documented in this encounter Visit Diagnoses Not on filedocumented in this encounter Care Teams Heavy Duty Mechanic Farm Equipment Relationship Specialty Start Date End Date Margarito Curry MD [facility] [address] [place] [address] PCP - General 09/18/21 documented as of this encounter
--- OUTSIDE RECORDS SUMMARY | 2024-03-17 09:54 | XMS_ITS | Encounter Summary ---
Author Organization [facility] Address [address] [place] [address] Care Team Providers Care Vertical Contour Band Saw Operator Name Role Phone Margarito Curry MD Primary Care Provider [phone] Encounter Details Date Type Department Care Team (Late st Contact Info) Description 01/21/2023 Lab Requisition [facility] Pathology & Laboratory Medicine - [facility] [address] [place] [address] Zeny Clemente MD [address] [place] [phone] Encounter for other general examination Social [...] Date/Time Associated Diagnosis Comments SURGICAL PATHOLOGY Today 01/20/2023 16 :08 EDT Encounter for other general examination documented in this encounter Results * SURGICAL PATHOLOGY (01/20/2023 16:08 EDT) Note to Patient The following pathology results have been interpreted by your pathologist and may be available to you before your health provider has had the opportunity to review them. Please allow time for your provider to receive these results and explore management options, if applicable. 01/23/2023 16:59 [facility] Final Diagnosis A. CERVIX, 6-7 O'CLOCK, BIOPSY: - Fragments of benign endocervix and benign squamous epithelium. B. ENDOCERVIX, CURETTAGE: - Fragments of benign endocervix. 01/23/2023 16:59 [facility] Diagnosis Comment The previous Pap test ([id number]) has been reviewed and the presence of atypical cells is confirmed. Similar abnormal cells to those seen on the Pap test are not identified in the current case. Deeper sections have been examined. 01/23/2023 16:59 [facility] Attestation By the signature below, the attending physician certifies that they have 1) personally conducted a gross and/or microscopic examination of the described specimen(s), and/or personally interpreted the results of laboratory testing of the described specimen(s), and 2) personally rendered or confirmed the above diagnosis. 01/23/2023 16:59 [facility] at 1659 Clinical History LSIL Pap/HPV + 01/23/2023 16:59 [facility] Gross Description A. Received in formalin on a Histologic SFT-1000 device labelled with proper patient identification (initials C, E) and 1. Cervical 6-7 o'clock is an aggregate of pink soft tissue fragments and admixed translucent mucus (1.1 x 0.8 x 0.1 cm). Entirely submitted in A1. B. Received in formalin labelled with proper patient identification (initials E) and 2. ECC is an aggregate of pink-su soft tissue fragments and admixed translucent mucus (1.6 x 1.4 x 0.2 cm). Entirely submitted in B1. Pao Pandya 01/21/2023 14:13 01/23/2023 16:59 [facility] Performing Lab [facility] 01/23/2023 16:59 [facility] Scanned Images 01/23/2023 16:59 EDT [facility] Tissue ENTIRE ENDOCERVIX / Unknown 01/20/2023 16:08 EDT 01/21/2023 8:07 EDT Tissue specimen (specimen) ENDOCERVICAL STRUCTURE / Unknown 01/20/2023 16:08 EDT 01/21/2023 8:09 EDT Zeny Clemente MD PATHOLOGY ORDERABLES [facility] [address] [place] [address] documented in this encounter Visit Diagnoses Diagnosis Encounter for other general examination documented in this encounter Care Teams Vertical Contour Band Saw Operator Relationship Specialty Start Date End Date Margarito Curry MD [address] [place] [address] PCP - General 09/18/21 documented as of this encounter
--- OUTSIDE RECORDS SUMMARY | 2024-03-17 09:54 | XMS_ITS | Encounter Summary ---
Author Organization [facility] Address [address] [place] [address] Care Team Providers Care Museum Assistant Name Role Phone Margarito Curry MD Primary Care Provider [phone] Encounter Details Date Type Department Care Team (Late st Contact Info) Description 02/05/2022 Lab Requisition [facility] Pathology & Laboratory Medicine - [facility] [address] [place] [address] Zeny Clemente MD [address] [place] [phone] Encounter for other general examination Social [...] Date/Time Associated Diagnosis Comments SURGICAL PATHOLOGY Today 02/05/2022 11 :22 EDT Encounter for other general examination documented in this encounter Results * SURGICAL PATHOLOGY (02/05/2022 11:22 EDT) Note to Patient The following pathology results have been interpreted by your pathologist and may be available to you before your health provider has had the opportunity to review them. Please allow time for your provider to receive these results and explore management options, if applicable. 02/06/2022 11:15 T [facility] Final Diagnosis A. CERVIX, BIOPSY: - Low-grade squamous intraepithelial lesion (MIGUEL 1). 02/06/2022 11:15 [facility] Attestation By the signature below, the attending physician certifies that they have 1) personally conducted a gross and/or microscopic examination of the described specimen(s), and/or personally interpreted the results of laboratory testing of the described specimen(s), and 2) personally rendered or confirmed the above diagnosis. 02/06/2022 11:15 [facility] at 1115 Clinical History LSIL Pap 02/06/2022 11:15 [facility] Gross Description A. Received in formalin labelled with proper patient identification (initials C, E) and cervical bx is an aggregate of light su mucinous material measuring 0.4 x 0.4 x 0.1 cm. Submitted entirely in A1. FRANKLIN ANDERSON(ASCP) 02/05/2022 19:37 02/06/2022 11:15 T [facility] Performing Lab [facility] 11:15 [facility] Scanned Images 02/06/2022 11:15 [facility] Tissue ENTIRE WALL OF CERVIX / Unknown 02/05/2022 11:22 EDT 02/05/2022 17:05 EDT Zeny Clemente MD PATHOLOGY ORDERABLES [facility] [address] [place] [address] documented in this encounter Visit Diagnoses Diagnosis Encounter for other general examination documented in this encounter Additional Health Concerns Infection Onset Date Last Indicated Resolved Time Influenza 07/22/2022 07/22/2022 08/01/2022 22:1 5 EST documented as of this encounter Care Teams Museum Assistant Relationship Specialty Start Date End Date Margarito Curry MD [address] [place] [address] PCP - General 09/18/21 documented as of this encounter
--- OUTSIDE RECORDS SUMMARY | 2024-03-17 09:54 | XMS_ITS | Encounter Summary ---
Author Organization [facility] Address [address] [place] [address] Care Team Providers Care Equity Sales Assistant Name Role Phone Margarito Curry MD Primary Care Provider [phone] Encounter Details Date Type Department Care Team (Late st Contact Info) Description 05/01/2023 Lab Requisition [facility] Pathology & Laboratory Medicine - [facility] [address] [place], [place] [phone] Outr Resulting Lab, Provider Social History Tobacco [...] Associated Diagnosis Comments CHLAMYDIA/N. GONORRHOEAE AMPLIFIED NUCLEIC ACID Routine 04/30/2023 16:15 EDT documented in this encounter Results * CHLAMYDIA/N. GONORRHOEAE AMPLIFIED RNA (04/30/2023 16:15 EDT) Neisseria gonorrhoeae Result Negative Negative 05/02/2023 13:23 EDT [facility] Chlamydia trachomatis Result Negative Negative 05/02/2023 13:23 EDT [facility] Swab VAGINAL STRUCTURE / Unknown 04/30/2023 16:15 EDT 05/01/2023 18:08 EDT Provider Outr Resulting Lab MICROBIOLOGY - GENERAL ORDERABLES [facility] [address] [place] [address] documented in this encounter Visit Diagnoses Not on filedocumented in this encounter Care Teams Equity Sales Assistant Relationship Specialty Start Date End Date Margarito Curry MD [address] [place] [address] PCP - General 09/18/21 documented as of this encounter
--- OUTSIDE RECORDS SUMMARY | 2024-03-17 09:54 | XMS_ITS | Referral Summary ---
Author Organization [facility] Address [address] [place] [address] Care Team Providers Care Executive Team Leader Name Role Phone Margarito Curry MD Primary Care Provider [phone] Encounters Date Type Department Care Team Description 02/02/2024 Lab Requisition [facility] [address] [address] Outr Resulting Lab, Provider 12/31/2023 Lab Requisition [facility] [address] [address] Zeny Clemente MD Encounter for other general examination from Last 3 Months Allergies Active Allergy Reactions Criticality Noted Date Comments Buspirone Other (See Comments) 09/30/2021 AMS Penicillins 04/08/2011 Medications Medication Sig Dispensed Refills Start Date End Date Status diazePAM (VALIUM) 10 mg tablet Take 10 mg p.o. 4 times daily for 48 hours then taper as per bridge program protocol. 16 Tablet 09/30/2021 Active Social History Tobacco Use Types Packs/Day Years [...] 13:03 EST Sexual Orientation Not on file Last Filed Vital Signs Vital Sign Reading Time Taken Comments Blood Pressure 135/85 10/04/2021 0153 EST Pulse 80 04/09/2011 0739 EDT Temperature 36.9 ??C (98.4 ??F) 10/04/2021 0039 EST Respiratory Rate 18 10/04/2021 0153 EST Oxygen Saturation 100% 10/04/2021 0153 EST Inhaled Oxygen Concentration - - Weight - - Height - - Body Mass Index - - Plan of Treatment Not on file Procedures Procedure Name Priority Date/Time Associated Diagnosis [...] 2.8 - 5.3 pg/mL 02/02/2024 22:41 EDT [facility] Blood VENOUS BLOOD / Unknown 02/02/2024 10:30 EDT 02/02/2024 22:07 EDT Provider Outr Resulting Lab CHEMISTRY & BLOOD GAS ORDERABLES Performing Organization Address City/State/[facility] Co de Phone Number [facility] [address] [place] [address] * T3, TOTAL (02/02/2024 10:30 EDT) T3, Total 150 97 - 169 ng/dL 02/02/2024 22:56 EDT [facility] Blood VENOUS BLOOD / Unknown 02/02/2024 10:30 EDT 02/02/2024 22:07 EDT Provider Outr Resulting Lab CHEMISTRY & BLOOD GAS ORDERABLES [facility] [address] [place] [address] * SURGICAL PATHOLOGY (12/30/2023 15:20 EDT) Note to Patient The following pathology results have been interpreted by your pathologist and may be available to you before your health provider has had the opportunity to review them. Please allow time for your provider to receive these results and explore management options, if applicable. 01/02/2024 11:12 EDT [facility] Final Diagnosis A. CERVIX, 7 O' CLOCK, CYTOBRUSH: - Superficial fragments of benign squamous mucosa and endocervical glands. 01/02/2024 11:12 T [facility] Diagnosis Comment The specimen is markedly fragmented and poorly preserved, limiting evaluation. No definitive dysplasia is identified. Deeper sections have been examined. 01/02/2024 11:12 [facility] Attestation There was significant resident/fellow involvement in the diagnostic evaluation of this case. By the signature below, the attending physician certifies that they have personally conducted a gross and/or microscopic examination of the described specimens and rendered or confirmed the above diagnosis. 01/02/2024 11:12 [facility] at [address] Clinical History LSIL 01/02/2024 11:12 [facility] Gross Description A. Received in formalin on a Histologic SFT-1000 device labelled with proper patient identification (initials C, E) and 7 o'clock cervix is an aggregate of transparent su mucus and admixed su wispy tissue fragments (0.6 x 0.5 x 0.1 cm). Entirely submitted in A1. Pao Vallecillo 12/31/2023 9:10 01/02/2024 11:12 [facility] Resident/Vikas w: Kary Javier MD 01/02/2024 11:12 [facility] Performing Lab [facility] 01/02/2024 11:12 [facility] Scanned Images 01/02/2024 11:12 EDT [facility] Tissue CERVIX UTERI STRUCTURE / Unknown 12/30/2023 15:20 EDT 12/31/2023 8:16 EDT Zeny Clemente MD PATHOLOGY ORDERABLES Performing Organization Address City/[facility]/ZIP Co de Phone Number [facility] [address], [place] [phone] * HEPATITIS C AB W REFLEX TO HCV RNA BY PCR (10/31/2023 16:55 EDT) Hep C Antibody Negative Negative 11/03/2023 10:39 EDT [facility] Blood VENOUS BLOOD / Unknown 10/31/2023 16:55 EDT 11/01/2023 21:34 EDT Provider Outr Resulting Lab CHEMISTRY & BLOOD GAS ORDERABLES Performing Organization Address [facility]/ZIP Co de Phone Number [facility] [address], [place] [address] from Last 3 Months or Most Recently Relevant to Health Maintenance Care Teams Executive Team Leader Relationship Specialty Start Date End Date Margarito Curry MD [address] [facility], [place] [phone] PCP - General 09/18/21
--- OUTSIDE RECORDS SUMMARY | 2024-03-17 09:54 | XMS_ITS | Encounter Summary ---
Author Organization [facility] Address [address] [place] [address] Care Team Providers Care Credit Collections Manager Name Role Phone Margarito Curry MD Primary Care Provider [phone] Encounter Details Date Type Department Care Team (Late st Contact Info) Description 11/03/2021 Lab Requisition [facility] Pathology & Laboratory Medicine - [facility] [address], [place] [phone] Outr Resulting Lab, Provider Social History Tobacco [...] 1/2 ANTIGEN AND ANTIBODY, 4TH GENERATION Routine 11/02/2021 12:50 EDT documented in this encounter Results * HIV 1/2 ANTIGEN AND ANTIBODY, 4TH GENERATION (11/02/2021 12:50 EDT) HIV 1 and 2 Antibody/p24 Antigen, 4th Generation Negative Negative 11/05/2021 9:40 EDT [facility] Comment:If acute HIV-1 infec tion is suspected in a high risk patient, submit plasma specimen for HIV-1 RNA quantitation test. Blood VENOUS BLOOD / Unknown 11/02/2021 12:50 EDT 11/03/2021 21:52 EDT Narrative [facility] - 11/05/2021 9:40 EDT Fourth Generation assay performed on the Siemens Centaur XPT. Provider Outr Resulting Lab IMMUNOLOGY A ND SEROLOGY ORDERABLES [facility] [address] [place] [address] documented in this encounter Visit Diagnoses Not on filedocumented in this encounter Additional Health Concerns Infection Onset Date Last Indicated Resolved Time Influenza 07/22/2022 07/22/2022 08/01/2022 22:1 5 EST documented as of this encounter Care Teams Credit Collections Manager Relationship Specialty Start Date End Date Margarito Curry MD [facility] [place] [address] PCP - General 09/18/21 documented as of this encounter
--- OUTSIDE RECORDS SUMMARY | 2024-03-17 09:54 | XMS_ITS | Encounter Summary ---
Author Organization [facility] Address [address] [place] [address] Care Team Providers Care Supervisor Film Processing Name Role Phone Margarito Curry MD Primary Care Provider [phone] Encounter Details Date Type Department Care Team (Late st Contact Info) Description 02/02/2024 Lab Requisition [facility] Pathology & Laboratory Medicine - [facility] [address], [place] [phone] Outr Resulting Lab, Provider Social History Tobacco [...] EDT T3, TOTAL Routine 02/02/2024 10:30 EDT documented in this encounter Results * T3 FREE (02/02/2024 10:30 EDT) T3, Free 5.2 2.8 - 5.3 pg/mL 02/02/2024 22:41 EDT [facility] Blood VENOUS BLOOD / Unknown 02/02/2024 10:30 EDT 02/02/2024 22:07 EDT Provider Outr Resulting Lab CHEMISTRY & BLOOD GAS ORDERABLES Performing Organization Address City/[facility] [address]/ZIP Co de Phone Number [facility] [address] [place], [place] [address] * T3, TOTAL (02/02/2024 10:30 EDT) T3, Total 150 97 - 169 ng/dL 02/02/2024 22:56 EDT [facility] Blood VENOUS BLOOD / Unknown 02/02/2024 10:30 EDT 02/02/2024 22:07 EDT Provider Outr Resulting Lab CHEMISTRY & BLOOD GAS ORDERABLES Performing Organization Address [facility] [address]/[facility] de Phone Number [facility] [address] [place] [address] documented in this encounter Visit Diagnoses Not on filedocumented in this encounter Care Teams Supervisor Film Processing Relationship Specialty Start Date End Date Margarito Curry MD [facility] [place] [address] PCP - General 09/18/21 documented as of this encounter
--- OUTSIDE RECORDS SUMMARY | 2024-03-17 09:54 | XMS_ITS | Encounter Summary ---
Author Organization [facility] Address [address] [place] [address] Care Team Providers Care Woodwork Salvage Inspector Name Role Phone Margarito Curry MD Primary Care Provider [phone] Encounter Details Date Type Department Care Team (Late st Contact Info) Description 11/01/2023 Lab Requisition [facility] Pathology & Laboratory Medicine - [facility] [address], [place] [phone] Outr Resulting Lab, Provider Social History Tobacco [...] 1/2 ANTIGEN AND ANTIBODY, 4TH GENERATION Routine 10/31/2023 16:55 EDT documented in this encounter Results * HIV 1/2 ANTIGEN AND ANTIBODY, 4TH GENERATION (10/31/2023 16:55 EDT) HIV 1 and 2 Antibody/p24 Antigen, 4th Generation Negative Negative 11/03/2023 10:42 EDT [facility] Comment:If acute HIV-1 infec tion is suspected in a high risk patient, submit plasma specimen for HIV-1 RNA quantitation test. Blood VENOUS BLOOD / Unknown 10/31/2023 16:55 EDT 11/01/2023 21:34 EDT Narrative [facility] - 11/03/2023 10:42 EDT Fourth Generation assay performed on the Siemens BabyGlowzaur XPT. Provider Outr Resulting Lab IMMUNOLOGY A ND SEROLOGY ORDERABLES [facility] [address] [place], [place] [phone] documented in this encounter Visit Diagnoses Not on filedocumented in this encounter Care Teams Woodwork Salvage Inspector Relationship Specialty Start Date End Date Margarito Curry MD [address] [place] [address] PCP - General 09/18/21 documented as of this encounter
--- OUTSIDE RECORDS SUMMARY | 2024-03-17 09:54 | XMS_ITS | Encounter Summary ---
Author Organization [facility] Address [address] [place] [address] Care Team Providers Care Telecasting Technician Name Role Phone Margarito Curry MD Primary Care Provider [phone] Encounter Details Date Type Department Care Team (Late st Contact Info) Description 11/01/2023 Lab Requisition [facility] Pathology & Laboratory Medicine - [facility] [address] [place], [place] [phone] Outr Resulting Lab, Provider Social History Tobacco [...] Comments CHLAMYDIA/N. GONORRHOEAE AMPLIFIED NUCLEIC ACID Routine 10/31/2023 16:55 EDT documented in this encounter Results * CHLAMYDIA/N. GONORRHOEAE AMPLIFIED RNA (10/31/2023 16:55 EDT) Neisseria gonorrhoeae Result Negative Negative 11/03/2023 12:58 EDT [facility] Chlamydia trachomatis Result Negative Negative 11/03/2023 12:58 EDT [facility] Swab ENDOCERVICAL STRUCTURE / Unknown 10/31/2023 16:55 EDT 11/02/2023 16:06 EDT Provider Outr Resulting Lab MICROBIOLOGY - GENERAL ORDERABLES [facility] [address] [place], [place] [address] documented in this encounter Visit Diagnoses Not on filedocumented in this encounter Care Teams Telecasting Technician Relationship Specialty Start Date End Date Margarito Curry [place] [place] [address] PCP - General 09/18/21 documented as of this encounter
--- OUTSIDE RECORDS SUMMARY | 2024-03-17 09:55 | XMS_ITS | Encounter Summary ---
Author Organization [facility] Address [address] [place] [address] Care Team Providers Care Colorer Name Role Phone Cathy Diaz MD Primary Care Provider [phone] Encounter Details Date Type Department Care Team (Latest Contact Info) Description 05/11/2018 13:51 EDT - 05/11/2018 23:59 EDT Hospital Encounter [address] [address] Unknown, Provider, Discharge Disposition: Home or Self Care Social History Tobacco Use Types Packs/Day Years Used Date Smoking Tobacco: Never Assessed Cigarettes Alcohol Use Standard Drinks/Week Comments Yes 0 (1 standard drink = 0.6 oz pur e alcohol) Sex and Gender Information Value Date Recorded Sex Assigned at Not on file Gender Identity Female 09/30/2021 13:03 EST Sexual Orientation Not on file documented as of this encounter Medications at Time of Discharge Medication Sig Dispensed Refills Start Date End Date busPIRone (BUSPAR) 10 mg tablet Take 10 mg by mouth 3 times daily. 09/30/2021 lorazepam (ATIVAN) 0.5 mg Tab Take 1 mg by mouth 3 times daily as needed. 04/08/2011 09/30/2021 documented as of this encounter Discharge Disposition Disposition Code Departure Means Destination Home or Self Long-Term documented in this encounter Plan of Treatment Not on file documented as of this encounter Visit Diagnoses Not on filedocumented in this encounter Care Teams Colorer Relationship Specialty Start Date End Date Cathy Diaz MD [address] [place] [phone] PCP - General 01/05/09 09/17/21 documented as of this encounter
--- OUTSIDE RECORDS SUMMARY | 2024-03-17 09:55 | XMS_ITS | Encounter Summary ---
Author Organization [facility] Address [address] [place] [address] Care Team Providers Care Sales Engagement Manager Name Role Phone Unavailable Primary Care Provider Blanco shane Encounter Details Date Type Department Care Team (Latest Contact Info) Description 10/12/2002 15:25 EST Hospital Encounter [facility] - Other [address] [place] [address] Indra Davila MD Unknown, Provider, Discharge Disposition: Auto Discharge Social History Tobacco Use Types Packs/Day Years Used Date Smoking Tobacco: Never Assessed Sex and Gender Information Value Date Recorded Sex Assigned at Not on file Gender Identity Female 09/30/2021 13:03 EST Sexual Orientation Not on file documented as of this encounter Discharge Disposition Disposition Code Departure Means Destination Auto Discharge documented in this encounter Plan of Treatment Not on file documented as of this encounter Procedures Procedure Name Priority Date/Time Associated Diagnosis Comments SURGICAL PATHOLOGY Routine 10/12/2002 0:00 EST documented in this encounter Results * SURGICAL PATHOLOGY (10/12/2002 0:00 EST) Pathology Report: SURGICAL PATHOLOGY REPORT Reports generated via electronic interface contain original data; however they are lacking the format of the original report. Caution should be taken when reading/interpreti ng unformatted reports. Name: ? MALIA SCHAEFER ? Accession #: ? [id number] ? : ? 1990 (Age: 12) ??F ? Collect Date: ? 10/12/2002 ? Location: ? [facility] ? Receive Date: ? 10/14/2002 ? Provider: INDRA DAVILA MD Copy to: NESHA WALDROP MD ? Final Pathologic Diagnosis: ? Skin of sole, right, shave biopsy: - Molluscum contagiosum. ??See microscopic and comment. Comment: ? The biopsy shows classic viral cytopathic changes of molluscum contagiosum. The histology is somewhat unusual in that the epidermis assumes multiple lobular invaginations rather than a distinctive, umbilicated papule. ??(Dr. Blood)/[facility] Microscopic Description: ? Sections consist of shave biopsy of skin to the superficial reticular dermis. ??The stratum corneum is composed of a thick layer of compact orthokeratin, consistent with acral site. ??The epidermis has multiple lobular invaginations associated with hyperplasia. ??The epithelial cells in the area of hyperplasia have abundant, slate rollins cytoplasm and many of the cells have intracytoplasmic inclusions that are red-purple. ??The inclusions are also present within the keratin filling the invaginations. ??There is no appreciable inflammation. ??(Dr. Blood)/[facility] Document reviewed and electronically signed by: Joie Blood MD Report ??Date: 10/15/2002 16:36 By the signature above, the attending physician certifies that he/she has personally conducted a gross and/or microscopic examination of the described specimens and rendered or confirmed the above diagnosis. Specimen(s) Received: ? R sole Clinical History: ? 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 Received in formalin labelled Saravanan kapadia is a 0.9 x 0.7 x 0.2 cm rollins-white skin papule. ??The specimen is inked, trisected and entirely submitted in one cassette. ??(Shilo Gallego)/kali End of Report [facility] 10/12/2002 10/14/2002 11: 14 EST Indra Davila MD PATHOLOGY ORDERABLES Performing Organization Address City/State/[facility] Co de Phone Number [facility] [address] [place] [address] documented in this encounter Visit Diagnoses Not on filedocumented in this encounter
--- OUTSIDE RECORDS SUMMARY | 2024-03-17 09:55 | XMS_ITS | Encounter Summary ---
Author Organization [facility] Address [address] [place] [address] Care Team Providers Care Tumbler Machine Operator Name Role Phone Cathy Waldrop MD Primary Care Provider [phone] Encounter Details Date Type Department Care Team (Late st Contact Info) Description 04/24/2007 Results Only [facility] [address] [place] [address] Cathy Waldrop MD [address] [place] [phone] Social History Tobacco Use Types Packs/Day Years Used Date Smoking Tobacco: Never Assessed Sex and Gender Information Value Date Recorded Sex Assigned at Not on file Gender Identity Female 09/30/2021 13:03 EST Sexual Orientation Not on file documented as of this encounter Plan of Treatment Not on file documented as of this encounter Procedures Procedure Name Priority Date/Time Associated Diagnosis Comments N. GONORRHOEAE AMPLIFIED PROBE Routine 04/24/2007 23:24 EDT ZZCHLAMYDIA TRACHOMATIS AMPLIFIED PROBE Routine 04/24/2007 23:24 EDT CYTOPATHOLOGY Routine 04/24/2007 0:00 EDT documented in this encounter Results * N. GONORRHOEAE AMPLIFIED PROBE (04/24/2007 23:24 EDT) Result No Neisseria gonorrhoeae DNA detected by bias cutting machine operator mediated amplification. [facility] Report Status Final [id number] [facility] Specimen Description Cervix [facility] 04/24/2007 23:2 4 EDT 04/24/2007 23:24 EDT Cathy Waldrop MD MICROBIOLOGY - GENER AL ORDERABLES Performing Organization Address [facility] de Phone Number [facility] [address] [place] [address] * CHLAMYDIA TRACHOMATIS AMPLIFIED PROBE (04/24/2007 23:24 EDT) Specimen Description Cervix [facility] Result No Chlamydia trachomatis DNA detected by bias cutting machine operator mediated amplification. [facility] Report Status Final [id number] [facility] 04/24/2007 23:2 4 EDT 04/24/2007 23:24 EDT Cathy Waldrop MD MICROBIOLOGY - GENER AL ORDERABLES Performing Organization Address [facility] de Phone Number [facility] [address] [place] [address] * CYTOPATHOLOGY (04/24/2007 0:00 EDT) Pathology Report: CYTOPATHOLOGY REPORT Reports generated via electronic interface contain original data; however they are lacking the format of the original report. Caution should be taken when reading/interpreti ng unformatted reports. Name: ? MALIA SCHAEFER ? Accession #: ? [id number] : ? 1990 (Age: 16) ??F ?Collect Date: ? 04/24/2007 Location: ? [facility] ? Receive Date: ? 04/27/2007 Provider: ?CATHY WALDROP MD Copy to: ? Specimen/Source: ?ThinPrep Pap Test, Cervix/Endocervix, processed on [employer] ThinPrep Imaging System, with manual evaluation Last Menstrual Period: ? 04/20/07 Other: ? Additional clinical information: First pap HPVA - HPV testing requested if ASC-US on the current ThinPrep Pap test. ? SPECIMEN ADEQUACY ? Satisfactory for Evaluation - transformation zone component present GENERAL CATEGORIZATION ? Negative for Intraepithelial Lesion or Malignancy INTERPRETATION ? Fungal organisms present morphologically consistent with Judi species. ? Document reviewed and electronically signed by: ? DIEGO High(ASCP) ? Report Date: ??05/01/2007 14:52 End of Report [facility] 04/24/2007 04/27/2007 Cathy Waldrop MD PATHOLOGY ORDERABLES Performing Organization Address City/State/[facility] Co de Phone Number [facility] [address] [place] [address] documented in this encounter Visit Diagnoses Not on filedocumented in this encounter Care Teams Tumbler Machine Operator Relationship Specialty Start Date End Date Cathy Waldrop MD [address] [place] [phone] PCP - General 01/05/09 09/17/21 documented as of this encounter
--- OUTSIDE RECORDS SUMMARY | 2024-03-17 09:55 | XMS_ITS | Encounter Summary ---
Author Organization [facility] Address [address] [place] [address] Care Team Providers Care Academic Affairs Assistant Name Role Phone Cathy Diaz MD Primary Care Provider [phone] Encounter Details Date Type Department Care Team (Late st Contact Info) Description 05/11/2018 Results Only [facility] [phone] Leigh Ann Bauer[address] [address] Social History Tobacco Use Types Packs/Day Years [...] Name Priority Date/Time Associated Diagnosis Comments PAP TEST- RESULT ONLY Routine 05/11/2018 0:00 EDT documented in this encounter Results * PAP TEST- RESULT ONLY (05/11/2018 0:00 EDT) Pathology Report: CYTOPATHOLOGY REPORT Reports generated via electronic interface contain original data; however they are lacking the format of the original report. Caution should be taken when reading/interpreti ng unformatted reports. Name: ? MALIA LEDESMA ? Accession #: ? [id number] ? : ? 1990 (Age: 27) ??F ?Collect Date: ? 05/11/2018 ? Location: ? [facility] ? Receive Date: ? 05/12/2018 ? Provider: LEIGH ANN BAUER CNM Copy to: BRITTNEY SCHNEIDER INDUSTRIAL MANUFACTURING TECHNICIAN ? Final Report SPECIMEN ADEQUACY ? Satisfactory for Evaluation - transformation zone component present GENERAL CATEGORIZATION ? Epithelial Cell Abnormality INTERPRETATION ? Squamous Cell Abnormality - Atypical squamous cells, undetermined significance (ASC-US). Fungal organisms present morphologically consistent with Judi species. EDUCATIONAL NOTES/RECOMMENDATI ONS ? [facility] recommends following ASCCP's 2012 Updated Consensus Guidelines for the Management of Abnormal Cervical Cancer Screening Tests and Cancer Precursors (JLGTD, 2013; 17(5):S1-S27). ??Consensus guidelines are available online at www.asccp.org. Menstrual/Pregnanc y Status: ?? Other: Previous NIL Pap(s) Specimen/Source: ??Pap Test, Endocervix, ThinPrep Imaging System with manual evaluation Document reviewed and electronically signed by: ? ADRI DELAC RUZ MD ? Report ??Date: 05/18/2018 14:32 HPV with Pap Test ? Date Ordered: ? 05/18/2018 ? Status: ?? Signed Out ?Date Complete: ? 05/19/2018 ? By: ??System Interface ? Date Reported: ? 05/19/2018 ? Interpretation RESULT: POSITIVE FOR HIGH OR INTERMEDIATE RISK HPV. E6 OR E7 mRNA from one or more types of HPV types 16,18,31, 33,35,39,45,51,52, 56,58,59,66, and 68 is detected by medical registrar mediated amplification. High and intermediate risk HPV types are associated with most squamous intraepithelial lesions and cervical cancers. Comments Document reviewed and electronically signed by: ? System Interface ? Report date: 05/19/2018 By the signature above, the attending physician certifies that he/she has personally conducted a gross and/or microscopic examination of the described specimens and rendered or confirmed the above diagnosis. End of Report [facility] 05/11/2018 05/12/2018 Leigh Ann Bauer [facility] PATHOLOGY ORDERABLES [facility] [address] [id number] documented in this encounter Visit Diagnoses Not on filedocumented in this encounter Care Teams Academic Affairs Assistant Relationship Specialty Start Date End Date Cathy Diaz MD [address] [place] [phone] PCP - General 01/05/09 09/17/21 documented as of this encounter
--- OUTSIDE RECORDS SUMMARY | 2024-03-17 09:55 | XMS_ITS | Encounter Summary ---
Author Organization [facility] Address [address] [place] [address] Care Team Providers Care University Extension Specialist Name Role Phone Cathy Diaz MD Primary Care Provider [phone] Margarito Curry MD Primary Care Provider [phone] Encounter Details Date Type Department Care Team (Late st Contact Info) Description 06/21/2021 Lab Requisition [facility] Pathology & Laboratory Medicine - [address] [id number] Outr Resulting Lab, Provider Social History Tobacco Use Types Packs/Day Years Used Date Smoking Tobacco: Never Assessed Cigarettes Alcohol Use Standard Drinks/Week Comments Yes 0 (1 standard drink = 0.6 oz pur e alcohol) Interpersonal Safety Answer Date Record ed Physically [...] Procedure Name Priority Date/Time Associated Diagnosis Comments ZZCOVID-19 TEST [facility] PCR Today 06/20/2021 10:45 EDT COVID-19 TESTING Routine 06/20/2021 10:4 5 EDT documented in this encounter Results * COVID-19 TEST [facility] PCR (06/20/2021 10:45 EDT) Swab ENTIRE NASOPHARYNX / Unknown 06/20/2021 10:45 EDT 06/21/2021 16:48 EDT Provider Outr Resulting Lab MICROBIOLOGY - GENERAL ORDERABLES [facility] [address] [place] [address] * COVID-19 TESTING (06/20/2021 10:45 EDT) COVID-19 rt-PCR Result Negative Negative 06/22/2021 10:37 EDT [facility] Comment: This test has not been FDA cleared or approved. This test has been authorized by FDA under an EUA for use by authorized laboratories. This test has been authorized only for detection of nucleic acid from 2019-nCoV, not for any other viruses or pathogens. This test is only authorized for the duration of the declaration that circumstances exist justifying the authorization of emergency use of in vitro diagnostic tests for detection and/or diagnosis of 2019-nCoV under section 564(b)(1) of Act, 21 U.S.C ?? 360bbb-3(b) (1), unless the authorization is terminated or revoked sooner. Negative results do not preclude 2019-nCoV infection and should not be used as the sole basis for treatment or other patient management decisions. Negative results must be combined with clinical observations, patient history, and epidemiological information. Testing was performed using the beto SARS-CoV-2 assay ([employer] on the Beto 6800 System Performing Lab Beto 6800 [facility] Lab 06/22/2021 10:37 EDT [facility] Swab 06/20/2021 10:4 5 EDT 06/21/2021 16:48 EDT Provider Outr Resulting Lab MICROBIOLOGY - GENERAL ORDERABLES [facility] [address] [place] [address] documented in this encounter Visit Diagnoses Not on filedocumented in this encounter Additional Health Concerns Infection Onset Date Last Indicated Resolved Time Influenza 07/22/2022 07/22/2022 08/01/2022 22:1 5 EST documented as of this encounter Care Teams University Extension Specialist Relationship Specialty Start Date End Date Cathy Diaz MD [address] [place] [phone] PCP - General 01/05/09 09/17/21 Margarito Curry MD [address] [place] [address] PCP - General 09/18/21 documented as of this encounter
--- OUTSIDE RECORDS SUMMARY | 2024-03-17 09:55 | XMS_ITS | Encounter Summary ---
Author Organization [facility] Address [address] [place] [address] Care Team Providers Care Head Sampler Name Role Phone Unavailable Primary Care Provider Unavailabl e Encounter Details Date Type Department Care Team (Latest Contact Info) Description 08/20/2007 9:05 EST - 08/20/2007 11:59 EST Hospital Encounter [facility] - Other [address] [place] [address] Cathy Diaz MD [address] [place] [phone] Discharge Disposition: Home or Self Care Social History Tobacco Use Types Packs/Day Years Used Date Smoking Tobacco: Never Assessed Sex and Gender Information Value Date Recorded Sex Assigned at Not on file Gender Identity Female 09/30/2021 13:03 EST Sexual Orientation Not on file documented as of this encounter Discharge Disposition Disposition Code Departure Means Destination Home or Self Care documented in this encounter Plan of Treatment Not on file documented as of this encounter Visit Diagnoses Not on filedocumented in this encounter
--- OUTSIDE RECORDS SUMMARY | 2024-03-17 09:55 | XMS_ITS | Encounter Summary ---
Author Organization [facility] Address [address] [place] [address] Care Team Providers Care Truck Leasing Manager Name Role Phone Cathy Diaz MD Primary Care Provider [phone] Margarito Curry MD Primary Care Provider [phone] Encounter Details Date Type Department Care Team (Late st Contact Info) Description 04/07/2020 Lab Requisition [facility] Pathology & Laboratory Medicine - [address] [phone] Outr Resulting Lab, Provider Social History Tobacco [...] Comments CHLAMYDIA/N. GONORRHOEAE AMPLIFIED NUCLEIC ACID Routine 04/06/2020 16:30 EDT documented in this encounter Results * CHLAMYDIA/N. GONORRHOEAE AMPLIFIED RNA (04/06/2020 16:30 EDT) Neisseria gonorrhoeae Result Negative Negative 04/10/2020 14:02 EDT [facility] Chlamydia trachomatis Result Negative Negative 04/10/2020 14:02 EDT [facility] Urine URINE / Unknown 04/06/2020 1 6:30 EDT 04/07/2020 15:33 EDT Narrative [facility] - 04/10/2020 14:02 EDT A first catch urine specimen is acceptable for detection of Gonorrhea and Chlamydia, but might detect up to 10% fewer infections when compared with vaginal and endocervical swab samples. Provider Outr Resulting Lab MICROBIOLOGY - GENERAL ORDERABLES [facility] [address] [place] [address] documented in this encounter Visit Diagnoses Not on filedocumented in this encounter Additional Health Concerns Infection Onset Date Last Indicated Resolved Time Influenza 07/22/2022 07/22/2022 08/01/2022 22:1 5 EST documented as of this encounter Care Teams Truck Leasing Manager Relationship Specialty Start Date End Date Cathy Diaz MD [address] [place] [phone] PCP - General 01/05/09 09/17/21 Margarito Curry MD [address] [place] [id number] PCP - General 09/18/21 documented as of this encounter
--- OUTSIDE RECORDS SUMMARY | 2024-03-17 09:55 | XMS_ITS | Encounter Summary ---
Author Organization [facility] Address [address] [place] [address] Care Team Providers Care Service Restorer Emergency Name Role Phone Margarito Curry MD Primary Care Provider [phone] Reason for Visit * Reason Comments Anxiety Chest Pain Encounter Details Date Type Department Care Team (Late st Contact Info) Description 10/04/2021 0:18 EST - 10/04/2021 2:16 EST Emergency [facility] Emergency Department - [address] [phone] Cassi David PA-C [address] [facility] [place] [phone] Anxiety (Primary Dx) Discharge Disposition: Another Health Care Institution Not Defined Social History Tobacco Use Types Packs/Day Years [...] 0:52 EST documented as of this encounter Last Filed Vital Signs Vital Sign Reading Time Taken Comments Blood Pressure 135/85 10/04/2021 0153 EST Pulse - - Temperature 36.9 ??C (98.4 ??F) 10/04/2021 0039 EST Respiratory Rate 18 10/04/2021 0153 EST Oxygen Saturation 100% 10/04/2021 0153 EST Inhaled Oxygen Concentration - - Weight - - Height - - Body Mass Index - - documented in this encounter Discharge Instructions * Discharge Instructions* Cassi David PA-C - 10/04/2021 1:57 EST Rest, drink plenty of fluids. Take your usual medications as directed. Continue the protocol at [facility] If you see a counselor or psychiatrist, please call them for a follow up If you have thoughts of hurting yourself or if you feel that your anxiety is overwhelming, please contact Crisis Services at [phone]. documented in this encounter Medications at Time of Discharge Medication Sig Dispensed Refills Start Date End Date diazePAM (VALIUM) 10 mg tablet Take 10 mg p.o. 4 times daily for 48 hours then taper as per bridge program protocol. 16 Tablet 09/30/2021 documented as of this encounter Discharge Disposition Disposition Code Departure Means Destination Another Health Care Institut ion Not Defined Substance Abuse Reha b documented in this encounter ED Notes * Luis Mazariegos RN - 10/04/2021 0208 EST Pt provided with taxi voucher back to [facility]. * Luis Mazariegos RN - 10/04/2021 0155 EST Reassessed and pt continues to deny SI/HI, provider updated pt on plan of care and discharge with as needed ativan for future panic attacks. Denies CP at time of discharge. * Cassi David PA-C - 10/04/2021 0055 EST This patient received an evaluation and medical screening exam for emergent medical conditions at [facility] on 10/04/2021 Chief Complaint Panic attack HPI Malia Ledesma is a 31 y.o. female with PMH including anxiety, alcohol abuse who presents to the EDfor what she described as a panic attack. The patient presents as she had a panic attack tonight while at [facility]. The patient notes that she is at [facility] for alcohol detox, and denies any seizures or hallucinations. The patient reports frequent panic attacks (hundreds of thousands) that she treats with lorazepamas needed. The patient states that this feels the same as her previous panic attacks without any new features. The patient notes that she is usually prescribed 15 pills of lorazepam for 2 months. Thepatient states that she most recently presented to the ED at [place] on Friday as she had run out of her home lorazepam. The patient reports that she has a plan for admission to [facility] [place]. She is adamant there is no SI or HI and is looking forward to going to [facility] [place] for further management. History was provided by: Patient, medical records Patient's pertinent PMH, FH, SH were reviewed and updated PRN. ROS A 10 point review of systems has been performed and is otherwise negative except as noted in the HPI. Physical Exam Vital Signs Vitals Reassessment?: Yes Temp: 36.9 ??C (98.4 ??F) Temp src: Oral Heart Rate: 61 BPM Cardiac Rhythm: Normal sinus rhythm Resp: 18 SpO2: 100 % BP: 135/85 BP Device: BP Machine BP Patient Position: Semi fowlers BP Cuff Location: Right arm O2 Device: None (Room air) Nursing notes and vital signs were reviewed. Physical Exam Constitutional: General: She is not in acute distress. Appearance: She is well-developed. She is not diaphoretic. Comments: Tearful appearing, hyperventilating but not hypertensive HENT: Head: Normocephalic and atraumatic. Eyes: General: Right eye: No discharge. Left eye: No discharge. Cardiovascular: Rate and Rhythm: Normal rate. Pulmonary: Effort: Pulmonary effort is normal. No respiratory distress. Breath sounds: No stridor. Abdominal: General: There is no distension. Palpations: Abdomen is soft. Tenderness: There is no abdominal tenderness. Musculoskeletal: General: Normal range of motion. Cervical back: Normal range of motion. Comments: No michael tenderness Skin: Findings: No rash. Neurological: Mental Status: She is alert and oriented to person, place, and time. Psychiatric: Behavior: Behavior normal. Data Interpretation An EKG was obtained an independently interpreted: Normal sinus rhythm Imaging obtained was reviewed and independently interpreted: n/a Labs notable for n/a. Procedures Procedures ED Course/Medical Decision Making A medical screening was performed. This is a 31 y.o. female with past medical history of anxiety, alcohol abuse who presents to the emergency department with a panic attack. Exam as above, notable for tearful appearing, hyperventilating without tachycardia or hypertension. 0108: Administered 2 mg of Lorazepam On reevaluation, the patient states that she feels much improved. She continues to deny SI/HI and is happy with the plan or discharge. It is the understanding of the patient, and [facility] that she takes2 mg Lorazepam as needed, and that she has 4 tablets prescribed to her starting tomorrow. Discussed with [facility], who state that the patient is planned to go to [facility] [place] on Friday. Theyare comfortable with the patient being discharged to their care. At this time, the patient was stable for discharge home due to her stable physical exam. These findings were discussed with patient who expressed understanding and agreement with this plan. Instructed to follow-up with primary care physician in 2-3 days. Return precautions discussed at length. While under my care in the Emergency Department, the patient's pain was managed to an adequate level weighing risk vs. benefit of medication. Dr. Hay Dunn was available as the supervising attending. Clinical Impression Final diagnoses: Anxiety Disposition Discharged The patient's pain was managed to an adequate level weighing risk vs. benefit of further medications. Any further pain treatment will be at the discretion of the provider following up with the patient based on their clinical assessment. * Jason Angulo RN - 10/04/2021 0049 EST Patient presents to the ER with severe anxiety. The patient is begging for help. The patient statesshe has had no alcohol in 5 days. * Jason Angulo RN - 10/04/2021 0044 EST 12 Lead EKG Performed by JASON ANGULO RN and shown to Dr. Dos Santos. * Luis Mazariegos RN - 10/04/2021 0043 EST Pt is coming from [facility] via EMS, reports she is having a panic attack. States that she has them frequently, and [facility] with plans to go [facility]. Aggravating factor isdeath of mother. Received valium at [facility] at 2130. References chest tightness on arrival. * Luis Mazariegos RN - 10/04/2021 0040 EST Pt very anxious on arrival, im having a panic attack, make it stop pt states. Denies SI/HI. Denies etoh use. References CP, protocol EKG ordered performed and shown to attending MD. Pt connected tocontinuous cardiac monitoring. Continues to be tearful, but AOx3. documented in this encounter Plan of Treatment Not on file documented as of this encounter Procedures Procedure Name Priority Date/Time Associated Diagnosis Comments ECG REPORT - SCANNED 10/30/2021 16:19 EDT EKG 12-LEAD STAT 10/04/2021 0:33 EST documented in this encounter Results * ECG REPORT - SCANNED (10/30/2021 16:19 EDT) 10/30/2021 16:1 9 EDT Scan 2 Manager Leasing PROCEDURE/MINOR NEDRA GICAL ORDERABLES * EKG 12-LEAD (10/04/2021 0:33 EST) 10/04/2021 0:33 EST Narrative [facility] EKG - 10/30/2021 16:14 EDT ?[facility] Emergency ? Test Date: ?2021-10-04 Pat Name: ? MALIA LEDESMA ? Department: ?? ED ? Room: ? GT40 Gender: ? Female ? Executive Receptionist: ?? : ?1990 ? Requested By: BERNICE Bernal Order Number: [id number] ? Reading MD: ?? JUDIT ALETA MD ? Measurements Intervals ?[place] ? Rate: ? 78 ? P: ?42 SD: ? 123 ?QRS: ?11 QRSD: ? 81 ? T: ?20 QT: ? 363 ? QTc: ?416 ? Interpretive Statements SINUS RHYTHM WITH SINUS ARRHYTHMIA No previous ECG available for comparison I reviewed the tracing and have either agreed or edited the findings in this report. Electronically Signed On 10-30-2021 16:14:32 EDT by JUDIT RIVER MD. Procedure Note Judit River MD - 10/30/2021 [facility] Test Date: 2021-10-04 Pat Name: MALIA LEDESMA Department: ED Room: GT40 Gender: Female Executive Receptionist: : 1990 Requested By: BERNICE Bernal Order Number: [id number] Reading MD: JUDIT MORTON Measurements Intervals [place] Rate: 78 P: 42 SD: 123 QRS: 11 QRSD: 81 T: 20 QT: 363 QTc: 416 Interpretive Statements SINUS RHYTHM WITH SINUS ARRHYTHMIA No previous ECG available for comparison I reviewed the tracing and have either agreed or edited the findings inthis report. Electronically Signed On 10-30-2021 16:14:32 EDT by LUCAS PORTER. Steve Dos Santos MD CARDIAC ECG ORDERABL ES [facility] EKG documented in this encounter Visit Diagnoses Diagnosis Anxiety- Primary Anxiety state, unspecified documented in this encounter Administered Medications Inactive Administered Medications - up to 3 most recent administrations Medication Order MAR Action Action Date Dose Rate Site LORazepam (ATIVAN) tablet 2 mg 2 mg, oral, NOW X1, 1 dose, On Lidya 10/04/21 at 0115, STAT Given 10/04/2021 1:08 EST 2 mg documented in this encounter Active and Recently Administered Medications Times are shown in EST. Scheduled Medication Order 10/02/2021 10/03/2021 10/04/2021 LORazepam (ATIVAN) tablet 2 mg (COMPLETED) 2 mg, oral, NOW X1, 1 dose, On Lidya 10/04/21 at 0115, STAT 0108 (Given - Provid er: Jason Angulo RN) documented in this encounter Orders Medications Ordered That Benoit ht Not Have Been Administered Count Last Ordered Date First Ordered Date LORazepam (ATIVAN) tablet 2 mg 1 10/04/2021 documented in this encounter Care Teams Service Restorer Emergency Relationship Specialty Start Date End Date Margarito Curry MD [address] [place] [address] PCP - General 09/18/21 documented as of this encounter
--- OUTSIDE RECORDS SUMMARY | 2024-03-17 09:55 | XMS_ITS | Encounter Summary ---
Author Organization [facility] Address [address] [place] [address] Care Team Providers Care Quality Control Analyst Name Role Phone Cathy Diaz MD Primary Care Provider [phone] Encounter Details Date Type Department Care Team (Late st Contact Info) Description 08/20/2007 Results Only [facility] [address] [place] [address] Cathy Diaz MD [address] [place] [phone] Social History Tobacco Use Types Packs/Day Years Used Date Smoking Tobacco: Never Assessed Sex and Gender Information Value Date Recorded Sex Assigned at Not on file Gender Identity Female 09/30/2021 13:03 EST Sexual Orientation Not on file documented as of this encounter Plan of Treatment Not on file documented as of this encounter Procedures Procedure Name Priority Date/Time Associated Diagnosis Comments TESTS ADDED BY PHONE Routine 08/20/2007 14:55 EST COMPLETE BLOOD COUNT Routine 08/20/2007 14:55 EST TSH Routine 08/20/2007 14:55 EST GLUCOSE, SERUM Routine 08/20/2007 14:55 EST FERRITIN Routine 08/20/2007 14:55 EST documented in this encounter Results * TSH (08/20/2007 14:55 EST) TSH 3.23 0.35 - 5.00 uIU/mL [facility] 08/20/2007 14:5 5 EST 08/20/2007 20:09 EST Cathy Diaz MD CHEMISTRY & BLOOD GA S ORDERABLES Performing Organization Address [facility] Co de Phone Number [facility] [address] [place] [address] * (ABNORMAL) GLUCOSE, SERUM (08/20/2007 14:55 EST) Pathologist [facility] Glucose, Serum 66(L) 70 - 100 mg/dl [facility] 08/20/2007 14:5 5 EST 08/20/2007 20:09 EST Cathy Diaz MD CHEMISTRY & BLOOD GA S ORDERABLES Performing Organization Address [facility] de Phone Number [facility] [address] [place] [address] * FERRITIN (08/20/2007 14:55 EST) Pathologist [facility] Ferritin 16 10 - 291 ng/mL [facility] 08/20/2007 14:5 5 EST 08/20/2007 20:09 EST Cathy Diaz MD CHEMISTRY & BLOOD GA S ORDERABLES Performing Organization Address [facility] Co de Phone Number [facility] [address] [place] [address] * (ABNORMAL) HEMAGRAM (08/20/2007 14:55 EST) WBC 7.79 4.5 - 13.0 K/cmm [facility] RBC 4.06(L) 4.10 - 5.10 M/cmm [facility] Hemoglobin 12.2 12.0 - 16.0 gm/dl [facility] HCT 35.5(L) 36.0 - 46.0 % [facility] MCV 87 78 - 102 fl [facility] MCH 30.0 pg [facility] MCHC 34.3 gm/dl [facility] PLT 284 156 - 312 K/cmm [facility] RDW-CV 12.0 % [facility] 08/20/2007 14:5 5 EST 08/20/2007 20:09 EST Cathy Diaz MD HEMATOLOGY & PF4 ORD ERABLES Performing Organization Address City/[facility] Co de Phone Number [facility] [address] [place] [address] * TESTS ADDED BY PHONE (08/20/2007 14:55 EST) Tests to be added [facility] Diagnosis Code ANEMIA FLETC [facility] Who Called [facility] FOR DR[facility] PALMA [facility] Location Code [facility] 08/20/2007 14:5 5 EST 08/20/2007 20:09 EST Cathy Diaz MD CHEMISTRY & BLOOD GA S ORDERABLES Performing Organization Address [facility] de Phone Number [facility] [address] [place] [address] documented in this encounter Visit Diagnoses Not on filedocumented in this encounter Care Teams Quality Control Analyst Relationship Specialty Start Date End Date Cathy Diaz MD [address] [place] [phone] PCP - General 01/05/09 09/17/21 documented as of this encounter
--- OUTSIDE RECORDS SUMMARY | 2024-03-17 09:55 | XMS_ITS | Encounter Summary ---
Author Organization [facility] Address [address] [place] [address] Care Team Providers Care It Service Technician Name Role Phone Unavailable Primary Care Provider Unavailabl e Encounter Details Date Type Department Care Team (Latest Contact Info) Description 09/26/2008 16:04 EST Hospital Encounter [facility] - Other [address] [place] [address] Cathy Diaz MD [address] [place] [phone] Discharge Disposition: Home or Self Care Social [...]
--- OUTSIDE RECORDS SUMMARY | 2024-03-17 09:55 | XMS_ITS | Encounter Summary ---
Author Organization [facility] Address [address] [place] [address] Care Team Providers Care Copy Cutter Name Role Phone Unavailable Primary Care Provider Unavailabl e Encounter Details Date Type Department Care Team (Late st Contact Info) Description 06/16/2007 8:57 EDT [facility] [facility] [address] [place] [address] Josie Santillan MD [address] [place] [phone] Social History Tobacco Use Types Packs/Day Years [...]
--- OUTSIDE RECORDS SUMMARY | 2024-03-17 09:55 | XMS_ITS | Encounter Summary ---
Author Organization [facility] Address [address] [place] [address] Care Team Providers Care Wash Tank Tender Name Role Phone Cathy Diaz MD Primary Care Provider [phone] Encounter Details Date Type Department Care Team (Latest Contact Info) Description 03/14/2016 7:37 EDT - 03/14/2016 23:59 EDT Hospital Encounter [address] [address] Unknown, Provider, Discharge Disposition: Home or Self [...] Code Departure Means Destination Home or Self Skilled Nursing documented in this encounter Plan of Treatment Not on file documented as of this encounter Visit Diagnoses Not on filedocumented in this encounter Care Teams Wash Tank Tender Relationship Specialty Start Date End Date Cathy Diaz MD [address] [place] [phone] PCP - General 01/05/09 09/17/21 documented as of this encounter
--- OUTSIDE RECORDS SUMMARY | 2024-03-17 09:55 | XMS_ITS | Encounter Summary ---
Author Organization [facility] Address [address] [place] [address] Care Team Providers Care Paper Grader Name Role Phone Cathy Diaz MD Primary Care Provider [phone] Margarito Curry MD Primary Care Provider [phone] Encounter Details Date Type Department Care Team (Late st Contact Info) Description 05/17/2021 Lab Requisition [facility] Pathology & Laboratory Medicine - [address] [id number] Outr Resulting Lab, Provider Social History Tobacco [...] 1/2 ANTIGEN AND ANTIBODY, 4TH GENERATION Routine 05/16/2021 11:30 EDT documented in this encounter Results * HIV 1/2 ANTIGEN AND ANTIBODY, 4TH GENERATION (05/16/2021 11:30 EDT) HIV 1 and 2 Antibody/p24 Antigen, 4th Generation Negative Negative 05/18/2021 10:36 EDT [facility] Comment: If acute HIV-1 infection is suspected in a high risk ??patient, submit plasma specimen for HIV-1 RNA quantitation test. Fourth Generation assay performed on the Siemens Centaur. Blood VENOUS BLOOD / Unknown 05/16/2021 11:30 EDT 05/17/2021 16:13 EDT Provider Outr Resulting Lab IMMUNOLOGY A ND SEROLOGY ORDERABLES [facility] [address] [place] [address] documented in this encounter Visit Diagnoses Not on filedocumented in this encounter Additional Health Concerns Infection Onset Date Last Indicated Resolved Time Influenza 07/22/2022 07/22/2022 08/01/2022 22:1 5 EST documented as of this encounter Care Teams Paper Grader Relationship Specialty Start Date End Date Cathy Diaz MD [address] [place] [phone] PCP - General 01/05/09 09/17/21 Margarito Curry MD [address] [place] [address] [place] [address] PCP - General 09/18/21 documented as of this encounter
--- OUTSIDE RECORDS SUMMARY | 2024-03-17 09:55 | XMS_ITS | Encounter Summary ---
Author Organization [facility] Address [address] [place] [address] Care Team Providers Care Hospice Clinical Marketer Name Role Phone Cathy Diaz MD Primary Care Provider [phone] Encounter Details Date Type Department Care Team (Late st Contact Info) Description 11/15/2009 Results Only [facility] Laboratory Services - [facility] [address] [place], [place] [address] Cathy Diaz MD [address] [place] [phone] Social History Tobacco Use Types Packs/Day Years [...] Comments CHLAMYDIA/N. GONORRHOEAE AMPLIFIED NUCLEIC ACID Routine 11/15/2009 13:27 EDT CYTOPATHOLOGY Routine 11/15/2009 0:00 EDT documented in this encounter Results * CHLAMYDIA/GC AMPLIFIED (11/15/2009 13:27 EDT) Specimen Description Cervix [facility] Chlamydia Result No Chlamydia trachomatis DNA detected by compliance mgr mediated amplification. [facility] GC Result No Neisseria gonorrhoeae DNA detected by compliance mgr mediated amplification. [facility] 11/15/2009 13:2 7 EDT 11/16/2009 13:27 EDT Cathy Diaz MD MICROBIOLOGY - GENER AL ORDERABLES [facility] [address] [place] [id number] * CYTOPATHOLOGY (11/15/2009 0:00 EDT) Pathology Report: CYTOPATHOLOGY REPORT ? Reports generated via electronic interface contain original data; ? however they are lacking the format of the original report. ? Caution should be taken when reading/interpreti ng unformatted reports. ? Name: ? MALIA SCHAEFER ? Accession #: ? [id number] ? : ? 1990 (Age: 19) ??F ?Collect Date: ? 11/15/2009 ? Location: ? [facility] ? Receive Date: ? 11/16/2009 ? Provider: ?CATHY L PALMA MD ? Copy to: ? Specimen/Source: ?Pap Test, Cervix/Endocervix, ThinPrep Imaging System ? with manual evaluation ? Last Menstrual Period: ? Hormonal/Contracep tive Status: ? Yes: Nuva Ring ? SPECIMEN ADEQUACY ? Satisfactory for Evaluation ? - transformation zone component present ? GENERAL CATEGORIZATION ? Negative for Intraepithelial Lesion or Malignancy ? Document reviewed and electronically signed by: ? Lynan Miguel, CT(ASCP) ? Report Date: ??11/23/2009 09:13 ? End of Report ? [facility] 11/15/2009 11/16/2009 Cathy Diaz MD PATHOLOGY ORDERABLES [facility] [address] [place] [address] documented in this encounter Visit Diagnoses Not on filedocumented in this encounter Care Teams Hospice Clinical Marketer Relationship Specialty Start Date End Date Cathy Diaz MD [address] [place] [phone] PCP - General 01/05/09 09/17/21 documented as of this encounter
--- OUTSIDE RECORDS SUMMARY | 2024-03-17 09:55 | XMS_ITS | Encounter Summary ---
Author Organization [facility] Address [address] [place] [address] Care Team Providers Care Education Diagnostician Name Role Phone Unavailable Primary Care Provider Unavailabl e Encounter Details Date Type Department Care Team (Latest Contact Info) Description 04/24/2007 11:36 EDT - 04/24/2007 11:59 EDT Hospital Encounter [facility] - Other [address] [place] [address] Cathy Diaz MD [address] [place] [phone] Discharge Disposition: Home or Self Care [...]
--- OUTSIDE RECORDS SUMMARY | 2024-03-17 09:55 | XMS_ITS | Encounter Summary ---
Author Organization [facility] Address [address] [place] [address] Care Team Providers Care Shopper Insights Manager Name Role Phone Cathy Diaz MD Primary Care Provider [phone] Margarito Curry MD Primary Care Provider [phone] Encounter Details Date Type Department Care Team (Late st Contact Info) Description 04/25/2020 Lab Requisition [facility] Pathology & Laboratory Medicine - [address] [phone] Outr Resulting Lab, Provider Social History Tobacco [...] Procedure Name Priority Date/Time Associated Diagnosis Comments LYME AB Routine 04/23/2020 12:05 EDT documented in this encounter Results * LYME AB (04/23/2020 12:05 EDT) Lyme Ab Negative Negative 04/26/2020 10:52 EDT [facility] Comment:New 3rd generation a ssay in use 01/26/2020 Blood VENOUS BLOOD / Unknown 04/23/2020 12:05 EDT 04/25/2020 16:40 EDT Provider Outr Resulting Lab IMMUNOLOGY A ND SEROLOGY ORDERABLES [facility] [address] [place] [address] documented in this encounter Visit Diagnoses Not on filedocumented in this encounter Additional Health Concerns Infection Onset Date Last Indicated Resolved Time Influenza 07/22/2022 07/22/2022 08/01/2022 22:1 5 EST documented as of this encounter Care Teams Shopper Insights Manager Relationship Specialty Start Date End Date Cathy Diaz MD [address] [place] [phone] PCP - General 01/05/09 09/17/21 Margarito Curry MD [address] [place] [address] [place] [address] PCP - General 09/18/21 documented as of this encounter
--- OUTSIDE RECORDS SUMMARY | 2024-03-17 09:55 | XMS_ITS | Encounter Summary ---
Author Organization [facility] Address [address] [place] [address] Care Team Providers Care Poultry Farm Worker Name Role Phone Unavailable Primary Care Provider Unavailabl e Encounter Details Date Type Department Care Team (Late st Contact Info) Description 07/25/2003 11:52 EST - 07/25/2003 11:59 EST Hospital Encounter [facility] - Other [address] [place] [address] Maricel Lerner MD [address] [place] [phone] Discharge Disposition: Auto Discharge Social History Tobacco [...]
--- OUTSIDE RECORDS SUMMARY | 2024-03-17 09:55 | XMS_ITS | Encounter Summary ---
Author Organization [facility] Address [address] [place] [address] Care Team Providers Care Air Analyst Name Role Phone Cathy Diaz MD Primary Care Provider [phone] Margarito Curry MD Primary Care Provider [phone] Encounter Details Date Type Department Care Team (Late st Contact Info) Description 04/28/2021 Lab Requisition [facility] Pathology & Laboratory Medicine - [address] [phone] Outr Resulting Lab, Provider Social History Tobacco [...] Comments CHLAMYDIA/N. GONORRHOEAE AMPLIFIED NUCLEIC ACID Routine 04/27/2021 12:40 EDT documented in this encounter Results * CHLAMYDIA/N. GONORRHOEAE AMPLIFIED RNA (04/27/2021 12:40 EDT) Neisseria gonorrhoeae Result Negative Negative 04/30/2021 14:06 EDT [facility] Chlamydia trachomatis Result Negative Negative 04/30/2021 14:06 EDT [facility] Swab ENTIRE VAGINA / Unknown 04/27/2021 12:40 EDT 04/29/2021 16:19 EDT Provider Outr Resulting Lab MICROBIOLOGY - GENERAL ORDERABLES [facility] [address] [place] [address] documented in this encounter Visit Diagnoses Not on filedocumented in this encounter Additional Health Concerns Infection Onset Date Last Indicated Resolved Time Influenza 07/22/2022 07/22/2022 08/01/2022 22:1 5 EST documented as of this encounter Care Teams Air Analyst Relationship Specialty Start Date End Date Cathy Diaz MD [address] [place] [phone] PCP - General 01/05/09 09/17/21 Margarito Curry MD [address] [place] [address] [place] [address] PCP - General 09/18/21 documented as of this encounter
--- OUTSIDE RECORDS SUMMARY | 2024-03-17 09:55 | XMS_ITS | Encounter Summary ---
Author Organization [facility] Address [address] [place] [address] Care Team Providers Care Scallop Cutter Name Role Phone Cathy Diaz MD Primary Care Provider [phone] Encounter Details Date Type Department Care Team (Late st Contact Info) Description 03/14/2016 Results Only [facility] [phone] Tod Hough Social History Tobacco Use Types Packs/Day Years [...] Diagnosis Comments PAP TEST- RESULT ONLY Routine 03/14/2016 0:00 EDT documented in this encounter Results * PAP TEST- RESULT ONLY (03/14/2016 0:00 EDT) Pathology Report: CYTOPATHOLOGY REPORT Reports generated via electronic interface contain original data; however they are lacking the format of the original report. Caution should be taken when reading/interpreti ng unformatted reports. Name: ? MALIA LEDESMA ? Accession #: ? [id number] : ? 1990 (Age: 25) ??F ?Collect Date: ? 03/14/2016 Location: ? [facility] ? Receive Date: ? 03/19/2016 Provider: ?TOD HOUGH PA Copy to: ? Specimen/Source: ?Pap Test, Cervix/Endocervix, ThinPrep Imaging System with manual evaluation Last Menstrual Period: ? Menstrual/Pregnanc y Status: ? Hormonal/Contracep tive Status: ? None ? SPECIMEN ADEQUACY ? Satisfactory for Evaluation - transformation zone component present GENERAL CATEGORIZATION ? Epithelial Cell Abnormality INTERPRETATION ? Squamous Cell Abnormality - Low grade squamous intraepithelial lesion (LSIL). EDUCATIONAL NOTES/RECOMMENDATI ONS ? [facility] recommends following ASCCP's 2012 Updated Consensus Guidelines for the Management of Abnormal Cervical Cancer Screening Tests and Cancer Precursors (JLGTD, 2013; 17(5):S1-S27). ??Consensus guidelines are available online at www.asccp.org. ? Document reviewed and electronically signed by: ? JOSE TAN MD ? Report Date: ??03/27/2016 15:59 End of Report [facility] 03/14/2016 03/19/2016 Tod Hough PATHOLOGY ORDERABLES [facility] [address] [place] [address] documented in this encounter Visit Diagnoses Not on filedocumented in this encounter Care Teams Scallop Cutter Relationship Specialty Start Date End Date Cathy Diaz MD [address] [place] [phone] PCP - General 01/05/09 09/17/21 documented as of this encounter
--- OUTSIDE RECORDS SUMMARY | 2024-03-17 09:55 | XMS_ITS | Encounter Summary ---
Author Organization [facility] Address [address] [place] [address] Care Team Providers Care First Line Production Supervisor Name Role Phone Margarito Curry MD Primary Care Provider [phone] Encounter Details Date Type Department Care Team (Late st Contact Info) Description 09/30/2021 13:00 EST - 09/30/2021 14:17 EST Emergency [facility] Emergency Department - [address] [address] Dereje Allen PA-C [address] [place] [address], [address] [place] [phone] Alcohol withdrawal syndrome without complication (HCC-CMS) (HCC) (Primary Dx) Discharge Disposition: Home or Self Care Social [...] file documented as of this encounter Discharge Instructions * Discharge Instructions* Dereje Allen PA-C - 09/30/2021 13:35 EST Patient is at act 1 documented in this encounter Medications at Time of Discharge Medication Sig Dispensed Refills Start Date End Date diazePAM (VALIUM) 10 mg tablet Take 10 mg p.o. 4 times daily for 48 hours then taper as per bridge program protocol. 16 Tablet 09/30/2021 documented as of this encounter Ordered Prescriptions Prescription Sig Dispensed Refills Start Date End Da te diazePAM (VALIUM) 10 mg tablet Take 10 mg p.o. 4 times daily for 48 hours then taper as per bridge program protocol. 16 Tablet 09/30/2021 documented in this encounter Discharge Disposition Disposition Code Departure Means Destination Home or Self Custodial documented in this encounter ED Notes * Dereje Allen PA-C - 09/30/2021 1316 EST This patient received an evaluation and medical screening exam for emergent medical conditions via Telemedicine by the [facility] on 09/30/2021 Today's visit was provided through telemedicine video conferencing: The location of the patient : [facility] The location of the provider:emergency department The following staff and their role did participate in today's encounter visit: Dereje Allen PA-C The concept of ???Telemedicine?? has been described to the patient. Patient has been informed of the anticipated benefits and possible risks. Patient understands the information provided regarding telemedicine, has had the opportunity to ask questions about this information, and all questions havebeen answered to patient???s satisfaction. Patient consents for the use of telemedicine in his/her medical care and authorizes the transmission of any relevant medical information to providers and their staff involved in patient???s medical or mental health care. Patients name and date of confirmed at beginning of visit. yes Chief Complaint Alcohol Abuse HPI Malia Ledesma is a 31 y.o. female who presents to the ED for medical clearance for the Bridge program. Allergies confirmed: yes Current substance use (which substances, amount) : alcohol, pills, opiates (been a long time) Last use: on the way to [employer] [facility] Last period of sobriety: none recently Any current withdrawal symptoms: anxiety History of alcohol withdrawal seizures or other complications: no Tolerating PO: yes Any other physical complaints: anxiety ROS A 10 point review of systems has been performed and is otherwise negative except as noted in the HPI. Physical Exam vital signs were reviewed. HR: 98 BP:159/122 Temp: 97.2 BALWINDER: 0.2 Constitutional: Well appearing in no acute distress Mouth: Moist oral mucosa Neck: Full ROM Lungs: Normal work of breathing, No Respiratory distress, able to speak in full sentences Skin: No overt rashes on exposed skin Extremities: Moving spontaneously Neuro: Grossly neurologically intact with normal speech, alert Psych: No agitation or overt thought disorder ED Course/Medical Decision Making A medical screening was performed. Chief complaint for this visit was: Alcohol Abuse This patient was evaluated using telemedicine and the Patient verbally consented to evaluation via telemedicine. Live, Interactive audiovisual equipment was used with Zoom. The patient was located at the [facility] and the ED provider was located at the Emergency Department. The [facility] staff member was present for portions of the visit. The visit lasted approximately 15 minutes. I reviewed the patients allergies, vital signs, and past medical history. Clinical Impression Final diagnoses: Alcohol withdrawal syndrome without complication (HCC-CMS) (HCC) Disposition Discharged The patient's pain was managed to an adequate level weighing risk vs. benefit of further medications. Any further pain treatment will be at the discretion of the provider following up with the patient based on their clinical assessment. * Marimar Colon - 09/30/2021 1303 EST Number to call per registration [phone] documented in this encounter Plan of Treatment Not on file documented as of this encounter Visit Diagnoses Diagnosis Alcohol withdrawal syndrome without complication (HCC-CMS)- Primary documented in this encounter Discontinued Medications Medication Sig Discontinue Reason Start Date End Da te busPIRone (BUSPAR) 10 mg tablet Take 10 mg by mouth 3 times daily. Alternate therapy 09/30/2021 lorazepam (ATIVAN) 0.5 mg Tab Take 1 mg by mouth 3 times daily as needed. Therapy completed 04/08/2011 09/30/2021 documented as of this encounter Care Teams First Line Production Supervisor Relationship Specialty Start Date End Date Margarito Curry MD [facility] [place] [address] PCP - General 09/18/21 documented as of this encounter
--- OUTSIDE RECORDS SUMMARY | 2024-03-17 09:55 | XMS_ITS | Encounter Summary ---
Author Organization [facility] Address [address] [place] [address] Care Team Providers Care Community Health Counselor Name Role Phone Margarito Curry MD Primary Care Provider [phone] Encounter Details Date Type Department Care Team (Late st Contact Info) Description 11/02/2021 Lab Requisition [facility] Pathology & Laboratory Medicine - [facility] [address] [place] [address] Margarito Curry MD [address] [place] [phone] Encounter for other general examination Social History [...] Date/Time Associated Diagnosis Comments PAP TEST Today 11/02/2021 12:30 EDT Encounter for other general examination CHLAMYDIA/N. GONORRHOEAE AMPLIFIED NUCLEIC ACID, THINPREP Today 11/02/2021 12:30 EDT documented in this encounter Results * PAP TEST (11/02/2021 12:30 EDT) Specimens A. Cervix and/or Endocervix , ThinPrep Imaging System with Manual Evaluation 11/12/2021 11:23 [facility] Specimen Adequacy Satisfactory for Evaluation - transformation zone component present 11/12/2021 11:23 T [facility] General Categorization Epithelial Cell Abnormality 11/12/2021 11:23 [facility] Descriptive Diagnosis Squamous Cell Abnormality - Low grade squamous intraepithelial lesion (LSIL). 11/12/2021 11:23 [facility] Educational Comments [facility] recommends following ASCCP's 2012 Updated Consensus Guidelines for the Management of Abnormal Cervical Cancer Screening Tests and Cancer Precursors (JLGTD, 2013; 17(5):S1-S27). Consensus guidelines are available online at www.asccp.org. 11/12/2021 11:23 [facility] Attestation By the signature below, the attending physician certifies that they have personally conducted a gross and/or microscopic examination of the described specimens and rendered or confirmed the above diagnosis. 11/12/2021 11:23 [facility] at 1123 Clinical History See below 11/13/19 11:23 [facility] Performing Lab [facility] 11/12/2021 11:23 [facility] Scanned Images 11/12/2021 11:23 [facility] Papanicolaou smear specimen (specimen) CERVIX UTERI STRUCTURE / Unknown 11/02/2021 12:30 EDT 11/05/2021 14:36 EDT Margarito Curry MD PATHOLOGY ORDERABLES [facility] [address] [place] [id number] * CHLAMYDIA/N. GONORRHOEAE AMPLIFIED RNA, THINPREP (11/02/2021 12:30 EDT) Neisseria gonorrhoeae Result Negative Negative 11/05/2021 15:27 EDT [facility] Chlamydia trachomatis Result Negative Negative 11/05/2021 15:27 EDT [facility] Papanicolaou smear specimen (specimen) CERVIX UTERI STRUCTURE / Unknown 11/02/2021 12:30 EDT 11/05/2021 8:36 EDT Margarito Curry MD MICROBIOLOGY - GENER AL ORDERABLES [facility] [address] [place] [address] documented in this encounter Visit Diagnoses Diagnosis Encounter for other general examination documented in this encounter Additional Health Concerns Infection Onset Date Last Indicated Resolved Time Influenza 07/22/2022 07/22/2022 08/01/2022 22:1 5 EST documented as of this encounter Care Teams Community Health Counselor Relationship Specialty Start Date End Date Margarito Curry MD [address] [place] [address] PCP - General 09/18/21 documented as of this encounter
--- OUTSIDE RECORDS SUMMARY | 2024-03-17 09:55 | XMS_ITS | Encounter Summary ---
Author Organization [facility] Address [address] [place] [address] Care Team Providers Care Fraud Examiner Name Role Phone Cathy Diaz MD Primary Care Provider [phone] Encounter Details Date Type Department Care Team (Late st Contact Info) Description 04/28/2019 Results Only [facility] [phone] [address] Social History Tobacco Use Types [...] Diagnosis Comments PAP TEST- RESULT ONLY Routine 04/28/2019 0:00 EDT documented in this encounter Results * PAP TEST- RESULT ONLY (04/28/2019 0:00 EDT) Pathology Report: CYTOPATHOLOGY REPORT Reports generated via electronic interface contain original data; however they are lacking the format of the original report. Caution should be taken when reading/interpreti ng unformatted reports. Name: ? MALIA LEDESMA ? Accession #: ? [id number] ? : ? 1990 (Age: 28) ??F ?Collect Date: ? 04/28/2019 ? Location: ? [facility] ? Receive Date: ? 04/29/2019 ? Provider: AGGIE MCCAIN CNM Copy to: [employer] TECHNICIAN ? Final Report SPECIMEN ADEQUACY ? Satisfactory for Evaluation - transformation zone component present - scant squamous epithelial component secondary to excessive blood GENERAL CATEGORIZATION ? Negative for Intraepithelial Lesion or Malignancy EDUCATIONAL NOTES/RECOMMENDATI ONS ? An additional slide was prepared and evaluated. Menstrual/Pregnanc y Status: ??Post Hormonal/Contracep tive status: Intrauterine device: PARAGARD Previous Gynecologic Pathology: ASC-US: 05/11/18 Yes: Squamous Cell Abnomality 05/11/18 Infection History: Pos for HPV Other: Additional clinical information: BREAST FEEDING Specimen/Source: ??Pap Test, Cervix/Endocervix, ThinPrep Imaging System with manual evaluation Document reviewed and electronically signed by: ? Triny Christian, ALEXA(ASCP)(IAC) ? Report ??Date: 05/04/2019 16:10 HPV with Pap Test ? Date Ordered: ? 05/04/2019 ? Status: ?? Signed Out ?Date Complete: ? 05/05/2019 ? By: ??System Interface ? Date Reported: ? 05/05/2019 ? Interpretation RESULT: Negative for HPV. No E6 or E7 mRNA is detected from HPV types 16,18,31,33,35, 39,45,51,52,56,58, 59,66, and 68 by glass toughening operator mediated amplification. Comments Document reviewed and electronically signed by: ? System Interface ? Report date: 05/05/2019 By the signature above, the attending physician certifies that he/she has personally conducted a gross and/or microscopic examination of the described specimens and rendered or confirmed the above diagnosis. End of Report [facility] 04/28/2019 04/29/2019 Aggie Mccain [facility] PATHOLOGY ORDERABLES [facility] [address] [place] [address] documented in this encounter Visit Diagnoses Not on filedocumented in this encounter Care Teams Fraud Examiner Relationship Specialty Start Date End Date Cathy Diaz MD [address] [place] [phone] PCP - General 01/05/09 09/17/21 documented as of this encounter
--- OUTSIDE RECORDS SUMMARY | 2024-03-17 09:55 | XMS_ITS | Encounter Summary ---
Author Organization [facility] Address [address] [place] [address] Care Team Providers Care Cad Drafter Name Role Phone Unavailable Primary Care Provider Unavailabl e Encounter Details Date Type Department Care Team (Latest Contact Info) Description 09/07/2008 21:22 EST Hospital Encounter [facility] - Other [address] [place] [address] Cathy Diaz MD [address] [place] [phone] Discharge Disposition: Home or Self Care Social [...] Comments CHLAMYDIA/N. GONORRHOEAE AMPLIFIED NUCLEIC ACID Routine 09/26/2008 7:43 EST TESTS ADDED BY PHONE Routine 09/07/2008 16:45 EST MONO-TEST Routine 09/07/2008 16:45 EST COMPLETE BLOOD COUNT AND DIFFERENTIAL Routine 09/07/2008 16:45 EST FERRITIN Routine 09/07/2008 16:45 EST COMPREHENSIVE METABOLIC PANEL (CMP) Routine 09/07/2008 16:45 EST documented in this encounter Results * CHLAMYDIA/GC AMPLIFIED (09/26/2008 7:43 EST) Specimen Description Urine [facility] Result No Chlamydia trachomatis DNA detected by wearing apparel presser mediated amplification. [facility] Result No Neisseria gonorrhoeae DNA detected by wearing apparel presser mediated amplification. [facility] 09/26/2008 7:43 EST 09/27/2008 7:43 EST Cathy Diaz MD MICROBIOLOGY - GENER AL ORDERABLES Performing Organization Address [facility] Co de Phone Number [facility] [address] [place] [address] * FERRITIN (09/07/2008 16:45 EST) Ferritin 36 10 - 291 ng/mL [facility] 09/07/2008 16:4 5 EST 09/07/2008 20:28 EST Cathy Diaz MD CHEMISTRY & BLOOD GA S ORDERABLES Performing Organization Address [facility] Co de Phone Number [facility] [address] [place] [address] * TESTS ADDED BY PHONE (09/07/2008 16:45 EST) Tests to be added REJI [facility] Diagnosis Code ANEMIA [facility] Who Called YASIR FOR DR CATHY [facility] Location Code [facility] 09/07/2008 16:4 5 EST 09/07/2008 20:28 EST Cathy Diaz MD CHEMISTRY & BLOOD GA S ORDERABLES Performing Organization Address [facility] de Phone Number [facility] [address] [place] [address] * (ABNORMAL) HEMAGRAM AND DIFFERENTIAL (09/07/2008 16:45 EST) WBC 5.15 4.6 - 11.2 K/cmm [facility] RBC 3.96(L) 4.10 - 5.10 M/cmm [facility] Hemoglobin 11.9(L) 12.0 - 16.0 gm/dl [facility] HCT 35.1(L) 36.0 - 46.0 % [facility] MCV 88 78 - 102 fl [facility] MCH 30.1 pg [facility] MCHC 34.0 gm/dl [facility] PLT 197 156 - 312 K/cmm [facility] RDW-CV 12.9 % [facility] Neutrophils 58.7 % [facility] Lymphocytes 25.0 % [facility] Monocytes 15.1 % [facility] Eosinophils 0.8 % [facility] Basophils 0.4 % [facility] ABS Neutrophils 3.02 K/cmm [facility] ABS Lymphs 1.29 K/cmm [facility] ABS Monocytes 0.78 K/cmm [facility] ABS Eosinophils 0.04 K/cmm [facility] ABS Basophils 0.02 K/c[facility] Type of Diff: Automated [facility] 09/07/2008 16:4 5 EST 09/07/2008 20:28 EST Cathy Diaz MD PACKAGES & DNA PROBE ORDERABLES Performing Organization Address [facility] de Phone Number [facility] [address] [place] [address] * MONO-TEST (09/07/2008 16:45 EST) Hardy-Test Neg NEG [facility] 09/07/2008 16:4 5 EST 09/07/2008 20:28 EST Cathy Diaz MD CHEMISTRY & BLOOD GA S ORDERABLES Performing Organization Address [facility] de Phone Number [facility] [address] [place] [address] * COMPREHENSIVE METABOLIC PANEL (09/07/2008 16:45 EST) Potassium 3.7 3.6 - 5.2 mEq/L [facility] Sodium 139 136 - 145 mEq/L [facility] Chloride 100 96 - 110 mEq/L [facility] CO2 27 24 - 32 mEq/L [facility] Alkaline Phosphatase 81 50 - 130 U/L [facility] Bilirubin, Total <0.5 0.0 - 1.4 mg/dl [facility] AST 23 15 - 46 U/L [facility] ALT 29 0 - 45 U/L [facility] Albumin 4.1 3.0 - 5.5 g/dl [facility] Total Protein 6.8 6.3 - 8.6 g/dl [facility] Creatinine 0.66 0.6 - 1.2 mg/dl [facility] GFR, Calculated Age <18 ml/min/1.7 3m2 [facility] BUN 12 8 - 21 mg/dl [facility] Calcium 9.2 8.5 - 10.5 mg/dl [facility] Calculated Calcium 9.5 8.5 - 10.5 mg/dl [facility] Glucose, Serum 76 70 - 100 mg/dl [facility] Fasting? Unknown [facility] 09/07/2008 16:4 5 EST 09/07/2008 20:28 EST Cathy Diaz MD CHEMISTRY & BLOOD GA S ORDERABLES [facility] [address] [place] [address] documented in this encounter Visit Diagnoses Not on filedocumented in this encounter
--- OUTSIDE RECORDS SUMMARY | 2024-03-17 09:55 | XMS_ITS | Encounter Summary ---
Author Organization [facility] Address [address] [place] [address] Care Team Providers Care Transportation Department Head Name Role Phone Cathy Diaz MD Primary Care Provider [phone] Margarito Curry MD Primary Care Provider [phone] Encounter Details Date Type Department Care Team (Late st Contact Info) Description 05/17/2021 Lab Requisition [facility] Pathology & Laboratory Medicine - [address] [id number] Outr Resulting Lab, Provider Social History Tobacco [...] Name Priority Date/Time Associated Diagnosis Comments HEPATITIS B SURFACE ANTIGEN Routine 05/16/2021 11:30 EDT documented in this encounter Results * HEPATITIS B SURFACE ANTIGEN (05/16/2021 11:30 EDT) Hep B Surface Ag Negative Negative 05/18/2021 10:10 EDT [facility] Blood VENOUS BLOOD / Unknown 05/16/2021 11:30 EDT 05/17/2021 16:14 EDT Provider Outr Resulting Lab CHEMISTRY & BLOOD GAS ORDERABLES [facility] [address] [place] [address] documented in this encounter Visit Diagnoses Not on filedocumented in this encounter Additional Health Concerns Infection Onset Date Last Indicated Resolved Time Influenza 07/22/2022 07/22/2022 08/01/2022 22:1 5 EST documented as of this encounter Care Teams Transportation Department Head Relationship Specialty Start Date End Date Cathy Diaz MD [address] [place] [phone] PCP - General 01/05/09 09/17/21 Margarito Curry MD [address] [place] [address] [place] [address] PCP - General 09/18/21 documented as of this encounter
--- OUTSIDE RECORDS SUMMARY | 2024-03-17 09:55 | XMS_ITS | Encounter Summary ---
Author Organization [facility] Address [address] [place] [address] Care Team Providers Care Sheet Metal Apprentice Name Role Phone Cathy Diaz MD Primary Care Provider [phone] Encounter Details Date Type Department Care Team (Latest Contact Info) Description 11/15/2009 13:13 EDT - 11/15/2009 13:16 EDT Hospital Encounter [facility] - Other [address] [place] [address] Cathy Diaz MD [address] [place] [phone] Discharge Disposition: Home or Self Care Social [...] on filedocumented in this encounter Care Teams Sheet Metal Apprentice Relationship Specialty Start Date End Date Cathy Diaz MD [address] [place] [phone] PCP - General 01/05/09 09/17/21 documented as of this encounter
--- OUTSIDE RECORDS SUMMARY | 2024-03-17 09:55 | XMS_ITS | Encounter Summary ---
Author Organization [facility] Address [address] [place] [address] Care Team Providers Care Marine Design Engineer Name Role Phone Nesha Waldrop MD Primary Care Provider [phone] Reason for Visit * Reason Comments Alcohol Intoxication pt's sister found p t unresponsive and inc urine, bottle of rum found near pt, admits 2 tabs ativan. denies SI. emotional, crying, states I had a bad night. sister relays pt's ex-boyfriend was at pt's house tonight and had unk med that pt may have taken. Encounter Details Date Type Department Care Team (Late st Contact Info) Description 04/08/2011 22:03 EDT - 04/09/2011 9:44 EDT Emergency [facility] Emergency Department - [address] [id number] Kyle Marin MD [address] [place] [phone] Mitzy Vinson MD [address] [place] [phone] Vijay Colon MD Emergency, MD Tip Very severe alcohol intoxication (CMS-HCC) (HCC-CMS); Anxiety Discharge Disposition: Home or Self Care Social [...] on file documented as of this encounter Last Filed Vital Signs Vital Sign Reading Time Taken Comments Blood Pressure 101/67 04/09/2011 0739 EDT Pulse 80 04/09/2011 0739 EDT Temperature 37.1 ??C (98.8 ??F) 04/09/2011 0739 EDT Respiratory Rate 16 04/09/2011 0739 EDT Oxygen Saturation 100% 04/09/2011 0456 EDT Inhaled Oxygen Concentration - - Weight - - Height - - Body Mass Index - - documented in this encounter Discharge Instructions * Discharge Instructions* Vijay Colon MD - 04/09/2011 9:44 EDT Please stop abusing alcohol. Your blood alcohol level tonight was approximately 0.300. Do not go towork in the morning as you will still be legally intoxicated. Keep hydrated. Discuss your alcohol use with your primary care provider. Crisis provider will call and check on you later. YOu need to get into alcohol program * Attachments The following attachments cannot be sent through Care Everywhere. * ACUTE ALCOHOL INTOXICATION: AFTER YOUR CHILD'S VISIT (MONGOLIAN) documented in this encounter Medications at Time [...] Departure Means Destination Home or Self Care Walk-out Home documented in this encounter ED Notes * Virginia Glass RN - 04/09/2011 0943 EDT Home with sister. * Virginia Glass RN - 04/09/2011 0850 EDT Crisis in to see patient. * Virginia Glass RN - 04/09/2011 0756 EDT Sleeping, but rouses readily to verbal stimuli. Expresses desire for disposition. Aware we are waiting for crisis, although the wait frustrates her. * Mitzy Vinson MD - 04/09/2011 0738 EDT Pt resting thru the night breathalizer low at 0300, but resting and crisis to see this am * Kyle Marin IV, MD - 04/09/2011 0320 EDT DOS: 04/08/2011 Chief Complaint Patient presents with ??? Alcohol Intoxication pt's sister found pt unresponsive and inc urine, bottle of rum found near pt, admits 2 tabs ativan. denies SI. emotional, crying, states I had a bad night. sister relays pt's ex-boyfriend was at pt's house [facility] and had unk med that pt may have taken. The patient is a 20 y.o. female who presents today with Alcohol Intoxication HPI Comments: Sister came home to find pt down on floor, incontinent of urine, severely intoxicated. Pt reported boyfriend (or ex- ) giving pt quaaludes and ativan, drank large amount of alcohol. Unclear of attempt - pt reported initially she took meds and etoh 'because I had a bad day'. On arrival, telling mother she was thinking of harming herself with the meds and etoh. The history is provided by the patient and the EMS personnel (mother, sister). The history is limited by the condition of the patient. Alcohol Intoxication Primary symptoms include confusion, somnolence, agitation and intoxication. This is a recurrent problem. The current episode started 3 to 5 hours ago. The problem has not changed since onset. Suspected agents include alcohol and cocaine (quaalude tablets, ativan). Pertinent negatives include no fever. drowsiness, confusion. h/o anxiety, depression Review of Systems Constitutional: Negative for fever and activity change. HENT: Negative. Eyes: Negative. Respiratory: Negative for cough and shortness of breath. Cardiovascular: Negative for chest pain. Gastrointestinal: Negative for abdominal pain. Genitourinary: Negative. Musculoskeletal: Negative for back pain. Skin: Negative. Neurological: Slurred speech Hematological: Does not bruise/bleed easily. Psychiatric/Behavioral: Positive for confusion and agitation. The patient is nervous/anxious. Severely intoxicated All other systems reviewed and are negative. Past Medical History Diagnosis Date ??? Anxiety ??? Depression History reviewed. No pertinent past surgical history. Allergies Allergen Reactions ??? Penicillins History Substance Use Topics ??? Smoking status: Not on file ??? Smokeless tobacco: Not on file ??? Alcohol Use: Yes History reviewed. No pertinent family history. Vital Signs Temp: 37.1 ??C (98.8 ??F) Temp src: Tympanic Pulse: 80 Heart Rate: 77 BPM Resp: 16 SpO2: 100 % BP: 101/67 mmHg BP Device: BP Machine Patient Position: Sitting BP Cuff Location: Right arm O2 Device: None (Room air) Physical Exam Nursing note and vitals reviewed. Constitutional: Thin, scantily clad, agitated HENT: Head: Normocephalic and atraumatic. Eyes: Pupils are equal, round, and reactive to light. nystagmus Neck: Neck supple. Cardiovascular: Normal rate and intact distal pulses. Pulmonary/Chest: Effort normal. No respiratory distress. Abdominal: Soft. No tenderness. Musculoskeletal: She exhibits no edema. Neurological: She is alert. Agitated, intermittently combative, grossly intoxicated Skin: Skin is warm and dry. Psychiatric: Intoxicated, agitated Radiology orders: None Patient had laboratory tests ordered which were reviewed and interpreted by myself. Please see laboratory results for detailed information. EtOH 287. Procedures ED Course: A medical screening exam was performed. Pt is grossly intoxicated 20yof presenting after using quaaludes, ativan, and large amount of alcohol Unclear of intent or source of drugs Pt admits to using opiates, cocaine, MJ, quaaludes, benzos and heavy alcohol in recent weeks After 2hr in ED, etoh of 0.287 (11pm) Will not clear until am At 1a reassessed and pt endorsing suicidal thoughts Independently told mother and sister on separate occasions she was thinking of killing herself withan overdose of drugs D/w CRISIS who asks for call in am for reassessment Dispo per CRISIS/Psych in a.m. Disposition: Discharged The patient's pain was managed to an adequate level weighing risk vs. benefit of further medications. Upon departure from the Emergency Department, the patient's pain was 0 on a zero to ten scale. Condition at departure from the Emergency Department: Stable Discharge Prescriptions New Prescriptions No Discharge Prescriptions for this patient MDM Number of Diagnoses or Management Options Anxiety: Very severe alcohol intoxication: Diagnosis management comments: 4 1. Very severe alcohol intoxication (305.00BM) 2. Anxiety (300.00E) PCP: NESHA WALDROP MD 04/10/2011 4:14 * Sariah Randolph - 04/09/2011 0054 EDT Pt able to obtain urine sample. Urine sent to lab by tech. Pt attempting to pull out IV. Pt instructed to leave it alone. Mom distracting pt. * Cecy Iglesias RN - 04/08/20112242 EDT Mom to bedside, pt getting more agitated stating intent to leave dept - Dr Marin aware. Sisterand mom sober at bedside. meds returned to sister. * Bridger Page - 04/08/20112235 EDT Blood drawn via saline lock per protocol, tiger tube(s) sent to lab per order. documented in this encounter Miscellaneous Notes * Scanned Note-Null - Timber Estimator, Scan - 04/08/2011 0000 EDT * Scanned Note-Null - Timber Estimator, Scan - 04/08/2011 0000 EDT * Scanned Note-Null - Timber Estimator, Scan - 04/08/2011 0000 EDT documented in this encounter Plan of Treatment Not on file documented as of this encounter Procedures Procedure Name Priority Date/Time Associated Diagnosis Comments POCT ALCOHOL BREATH TEST STAT 04/09/2011 7:51 EDT POCT ALCOHOL BREATH TEST Routine 04/09/2011 3:45 EDT DRUG SCREEN 6 STAT 04/09/2011 0:38 EDT QUANT BETA HCG, STAT 04/08/2011 22:35 EDT ETHANOL, BLOOD STAT 04/08/2011 22:35 EDT ACETAMINOPHEN STAT 04/08/2011 22:35 EDT SALICYLATE STAT 04/08/2011 22:35 EDT POCT ALCOHOL BREATH TEST STAT 04/08/2011 22:30 EDT documented in this encounter Results * (ABNORMAL) POCT ALCOHOL BREATH TEST (04/09/2011 7:51 EDT) Ethanol Lvl 0.006(A) 0.000 % BPA POINT OF CARE 04/09/2011 7:51 EDT Mitzy Vinson MD POINT OF CARE TEST O RDERABLES POINT OF CARE * (ABNORMAL) POCT ALCOHOL BREATH TEST (04/09/2011 3:45 EDT) Ethanol Lvl 0.102(A) 0.000 % BPA POINT OF CARE Exhaled air (substance) 04/09/2011 3:45 EDT Kyle Marin MD POINT OF CAR E TEST ORDERABLES POINT OF CARE * DRUG SCREEN 6 (04/09/2011 0:38 EDT) Amphetamine Screen, Urine Negative screen. Confirmation testing available upon request. Suitable for medical purposes only. Will not detect all drugs within class. Cutoff = 1000 ng/ml [facility] Barbiturate Screen, Urine Negative screen. Confirmation testing available upon request. Suitable for medical purposes only. Will not detect all drugs within class. Cutoff = 300 ng/ml [facility] Benzodiazepine Screen, Urine Presumptive positive, interpret with caution. Confirmation testing available upon request. Suitable for medical purposes only. Will not detect all drugs within class. Assay less sensitive to Lorazepam and metabolites. Cutoff = 200 ng/ml [facility] Cannabinoid Scrn, Ur Presumptive positive, interpret with caution. Confirmation testing available upon request. Suitable for medical purposes only. Will not detect all drugs within class. Cutoff = 50 ng/ml [facility] Cocaine Metabolites, Ur Negative screen. Confirmation testing available upon request. Suitable for medical purposes only. Will not detect all drugs within class. Cutoff = 300 ng/ml [facility] Opiate Scrn, Ur Negative screen. Confirmation testing available upon request. Suitable for medical purposes only. Will not detect all drugs within class. Cutoff = 300 ng/ml Assay less sensitive to oxycodone and metabolites. Assay does not detect methadone. [facility] Urine specimen (specimen) URINE / Unknown 04/09/2011 0:38 EDT 04/09/2011 0:46 EDT Kyle Marin MD URINALYSIS O RDERABLES Performing Organization Address [facility] Co de Phone Number [facility] [address] [place] [address] * HCG (04/08/2011 22:35 EDT) HCG <4 <4 mIU/ml [facility] Comment: Reference Range: Positive = >10 Borderline = 4-10 ??recommend repeat. Negative = <4 Moderate hemolysis Blood specimen (specimen) 04/08/2011 22:35 EDT 04/08/2011 22:41 EDT Kyle Marin MD CHEMISTRY & BLOOD GAS ORDERABLES Performing Organization Address [facility] de Phone Number [facility] [address] [place] [address] * SALICYLATE (04/08/2011 22:35 EDT) Salicylate <1.0 mg/dl [facility] Comment: ??Negative = <2 mg/dl Therapeutic = <20 mg/dl Toxic = >30 mg/dl Moderate hemolysis Blood specimen (specimen) 04/08/2011 22:35 EDT 04/08/2011 22:41 EDT Kyle Marin MD CHEMISTRY & BLOOD GAS ORDERABLES Performing Organization Address [facility] de Phone Number [facility] [address] [place] [address] * ACETAMINOPHEN (04/08/2011 22:35 EDT) Acetaminophen <10.0 ug/ml [facility] Comment: ??Therapeutic range: ??10 - 30 ug/mL Possible toxicity: ??150 - 200 ug/mL Probable toxicity: ??>200 ug/mL Moderate hemolysis Blood specimen (specimen) 04/08/2011 22:35 EDT 04/08/2011 22:41 EDT Kyle Marin MD CHEMISTRY & BLOOD GAS ORDERABLES Performing Organization Address [facility] de Phone Number [facility] [address] [place] [address] * (ABNORMAL) ETHANOL, BLOOD (04/08/2011 22:35 EDT) Ethanol 286(H) <10 mg/dl [facility] Comment:Moderate hemolysis Blood specimen (specimen) 04/08/2011 22:35 EDT 04/08/2011 22:41 EDT Kyle Marin MD CHEMISTRY & BLOOD GAS ORDERABLES Performing Organization Address [facility] de Phone Number [facility] [address] [place] [address] * (ABNORMAL) POCT ALCOHOL BREATH TEST (04/08/2011 22:30 EDT) Ethanol Lvl 0.250(A) 0.000 % BPA POINT OF CARE 04/08/2011 22:3 0 EDT Kyle Marin MD POINT OF CAR E TEST ORDERABLES POINT OF CARE documented in this encounter Visit Diagnoses Diagnosis Very severe alcohol intoxication ([facility]) Alcohol abuse, unspecified Anxiety Anxiety state, unspecified documented in this encounter Administered Medications Inactive Administered Medications - up to 3 most recent administrations Medication Order MAR Action Action Date Dose Rate Site sodium chloride (NS) 0.9 % 3,000 mL BOLUS 3,000 mL, intravenous, Once (Without Time Specified), 1 dose, Starting on Fri04/08/11 at 2257, Until Fri04/08/11 at 2318, STAT Given 04/08/2011 23:18 EDT 3,000 mL documented in this encounter Historical Medications * This list may reflect changes made after this encounter. Medication Sig Dispensed Refills Start Date End Date busPIRone (BUSPAR) 10 mg tablet Take 10 mg by mouth 3 times daily. 09/30/2021 lorazepam (ATIVAN) 0.5 mg Tab Take 1 mg by mouth 3 times daily as needed. 04/08/2011 09/30/2021 added in this encounter Active and Recently Administered Medications Times are shown in EDT. Scheduled Medication Order 04/07/2011 04/08/2011 04/09/2011 sodium chloride (NS) 0.9 % 3,000 mL BOLUS (COMPLETED) 3,000 mL, intravenous, Once (Without Time Specified), 1 dose, Starting on Fri04/08/11 at 2257, Until Fri04/08/11 at 2318, STAT 2318 (Given - Provider: Ricardo Page) documented in this encounter Orders Nursing Count Last Ordered Date First Orde red Date INSERT PERIPHERAL IV 1 04/08/2011 documented in this encounter Care Teams Marine Design Engineer Relationship Specialty Start Date End Date Nesha Waldrop MD [address] [place] [phone] PCP - General 01/05/09 09/17/21 documented as of this encounter
--- OUTSIDE RECORDS SUMMARY | 2024-03-17 09:55 | XMS_ITS | Encounter Summary ---
Author Organization [facility] Address [address] [place] [address] Care Team Providers Care Casing In Line Feeder Name Role Phone Cathy Diaz MD Primary Care Provider [phone] Margarito Curry MD Primary Care Provider [phone] Encounter Details Date Type Department Care Team (Late st Contact Info) Description 05/17/2021 Lab Requisition [facility] Pathology & Laboratory Medicine - [address] [id number] Outr Resulting Lab, Provider Social History Tobacco [...] Date/Time Associated Diagnosis Comments SYPHILIS SEROLOGY Routine 05/16/2021 11: 30 EDT documented in this encounter Results * SYPHILIS SEROLOGY (05/16/2021 11:30 EDT) Syphilis Serology Negative Negative 05/18/2021 10:14 EDT [facility] Blood VENOUS BLOOD / Unknown 05/16/2021 11:30 EDT 05/17/2021 16:14 EDT Provider Outr Resulting Lab IMMUNOLOGY A ND SEROLOGY ORDERABLES [facility] [address] [place] [address] documented in this encounter Visit Diagnoses Not on filedocumented in this encounter Additional Health Concerns Infection Onset Date Last Indicated Resolved Time Influenza 07/22/2022 07/22/2022 08/01/2022 22:1 5 EST documented as of this encounter Care Teams Casing In Line Feeder Relationship Specialty Start Date End Date Cathy Diaz MD [address] [place] [phone] PCP - General 01/05/09 09/17/21 Margarito Curry MD [address] [place] [address] [place] [address] PCP - General 09/18/21 documented as of this encounter
--- OUTSIDE RECORDS SUMMARY | 2024-03-17 09:55 | XMS_ITS | Encounter Summary ---
Author Organization [facility] Address [address] [place] [address] Care Team Providers Care Batter Depositor Name Role Phone Margarito Curry MD Primary Care Provider [phone] Encounter Details Date Type Department Care Team (Latest Contact Info) Description 10/04/2021 Travel Social History Tobacco Use Types Packs/Day Years [...] on filedocumented in this encounter Care Teams Batter Depositor Relationship Specialty Start Date End Date Margarito Curry MD [place] [place] [address] PCP - General 09/18/21 documented as of this encounter
--- OUTSIDE RECORDS SUMMARY | 2024-03-17 09:55 | XMS_ITS | Encounter Summary ---
Author Organization [facility] Address [address] [place] [address] Care Team Providers Care Inside Trucker Name Role Phone Cathy Diaz MD Primary Care Provider [phone] Margarito Curry MD Primary Care Provider [phone] Encounter Details Date Type Department Care Team (Late st Contact Info) Description 11/01/2020 Lab Requisition [facility] Pathology & Laboratory Medicine - [address] [address] Janel Bernal, ERP PROJECT MANAGER [address] [place] [address] Encounter for other general examination Social [...] Date/Time Associated Diagnosis Comments PAP TEST Today 11/01/2020 8:40 EDT Encounter for other general examination CHLAMYDIA/N. GONORRHOEAE AMPLIFIED NUCLEIC ACID, THINPREP Today 11/01/2020 8:40 EDT documented in this encounter Results * PAP TEST (11/01/2020 8:40 EDT) Specimens A. Cervix and/or Endocervix , ThinPrep Imaging System with Manual Evaluation 11/09/2020 11:27 EDT [facility] Specimen Adequacy Satisfactory for Evaluation - transformation zone component present 11/09/2020 11:27 EDT [facility] General Categorization Negative for intraepithelial lesion or malignancy 11/09/2020 11:27 EDT [facility] Attestation . 11/09/2020 11:27 EDT [facility] at 1127 Clinical History See below 11/10/19 11:27 EDT [facility] Performing Lab [facility] 11/09/2020 11:27 EDT [facility] Scanned Images 11/09/2020 11:27 EDT [facility] Papanicolaou smear specimen (specimen) CERVIX UTERI STRUCTURE / Unknown 11/01/2020 8:40 EDT 11/02/2020 11:02 EDT Janel A Gabe ERP PROJECT MANAGER PATHOLOGY ORDERAB LES [facility] [address] [place] [address] * (ABNORMAL) CHLAMYDIA/N. GONORRHOEAE AMPLIFIED RNA, THINPREP (11/01/2020 8:40 EDT) Neisseria gonorrhoeae Result Negative Negative 11/02/2020 13:53 EDT [facility] Chlamydia trachomatis Result Positive(A) Negative 11/02/2020 13:53 EDT [facility] Papanicolaou smear specimen (specimen) CERVIX UTERI STRUCTURE / Unknown 11/01/2020 8:40 EDT 11/02/2020 7:57 EDT Foristell A Gabe ERP PROJECT MANAGER MICROBIOLOGY - GE NERAL ORDERABLES [facility] [address] [place] [address] documented in this encounter Visit Diagnoses Diagnosis Encounter for other general examination documented in this encounter Additional Health Concerns Infection Onset Date Last Indicated Resolved Time Influenza 07/22/2022 07/22/2022 08/01/2022 22:1 5 EST documented as of this encounter Care Teams Inside Trucker Relationship Specialty Start Date End Date Cathy Diaz MD [address] [place] [phone] PCP - General 01/05/09 09/17/21 Margarito Curry MD [address] [place] [id number] PCP - General 09/18/21 documented as of this encounter
--- OUTSIDE RECORDS SUMMARY | 2024-03-17 09:55 | XMS_ITS | Encounter Summary ---
Author Organization [facility] Address [address] [place] [address] Care Team Providers Care Vp Corporate Partnerships Name Role Phone Margarito Curry MD Primary Care Provider [phone] Encounter Details Date Type Department Care Team (Latest Contact Info) Description 10/08/2021 Lab Requisition [facility] Pathology & Laboratory Medicine - [facility] [address] [place] [address] Pedro Whitney [address] [place] [address] Encounter for screening for infections with a predominantly sexual mode of transmission; Encounter for screening for other infectious and parasitic diseases Social History Tobacco Use Types Packs/Day Years [...] Diagnosis Comments CHLAMYDIA/N. GONORRHOEAE AMPLIFIED NUCLEIC ACID Today 10/06/2021 13:00 EST Encounter for screening for infections with a predominantly sexual mode of transmission Encounter for screening for other infectious and parasitic diseases documented in this encounter Results * CHLAMYDIA/N. GONORRHOEAE AMPLIFIED RNA (10/06/2021 13:00 EST) Neisseria gonorrhoeae Result Negative Negative 10/09/2021 15:07 EST [facility] Chlamydia trachomatis Result Negative Negative 10/09/2021 15:07 EST [facility] Urine URINE / Unknown 10/06/2021 1 3:00 EST 10/08/2021 22:09 EST Narrative [facility] - 10/09/2021 15:07 EST A first catch urine specimen is acceptable for detection of Gonorrhea and Chlamydia, but might detect up to 10% fewer infections when compared with vaginal and endocervical swab samples. Pedro Whitney MICROBIOLOGY - GENER AL ORDERABLES Performing Organization Address City/State/[facility] Co de Phone Number [facility] [address] [place] [phone] documented in this encounter Visit Diagnoses Diagnosis Encounter for screening for infections with a predominantly sexual mode of transmission Encounter for screening for other infectious and parasitic diseases documented in this encounter Additional Health Concerns Infection Onset Date Last Indicated Resolved Time Influenza 07/22/2022 07/22/2022 08/01/2022 22:1 5 EST documented as of this encounter Care Teams Vp Corporate Partnerships Relationship Specialty Start Date End Date Margarito Curry MD [address] [place] [address] PCP - General 09/18/21 documented as of this encounter
--- OUTSIDE RECORDS SUMMARY | 2024-03-17 09:55 | XMS_ITS | Encounter Summary ---
Author Organization [facility] Address [address] [place] [address] Care Team Providers Care Production Cloth Cutter Name Role Phone Cathy Diaz MD Primary Care Provider Encounter Details Date Type Department Care Team (Late st Contact Info) Description 07/25/2003 Results Only [facility] [address] [place] [address] Maricel Lerner MD [address] [place] [phone] Social History Tobacco Use Types Packs/Day Years Used Date Smoking Tobacco: Never Assessed Sex and Gender Information Value Date Recorded Sex Assigned at Not on file Gender Identity Female 09/30/2021 13:03 EST Sexual Orientation Not on file documented as of this encounter Plan of Treatment Not on file documented as of this encounter Procedures Procedure Name Priority Date/Time Associated Diagnosis Comments GROUP A STREP CULTURE Routine 07/25/2003 20:59 EST documented in this encounter Results * PHARYNGITIS CULTURE (07/25/2003 20:59 EST) Specimen Description Throat [facility] Result NO GROUP A BETA STREPTOCOCCI ISOLATED [facility] Report Status Final [id number] [facility] 07/25/2003 20:5 9 EST 07/25/2003 20:59 EST Maricel Lerner MD MICROBIOLOGY - GENER AL ORDERABLES [facility] [address] [place] [address] documented in this encounter Visit Diagnoses Not on filedocumented in this encounter Care Teams Production Cloth Cutter Relationship Specialty Start Date End Date Cathy Diaz MD [address] [place] [phone] PCP - General 01/05/09 09/17/21 documented as of this encounter
--- OUTSIDE RECORDS SUMMARY | 2024-03-17 09:55 | XMS_ITS | Encounter Summary ---
Author Organization [facility] Address [address] [place] [address] Care Team Providers Care Casino Porter Name Role Phone Cathy Diaz MD Primary Care Provider [phone] Encounter Details Date Type Department Care Team (Late st Contact Info) Description 06/16/2007 Before PRISM Converted Visit (Maple) [facility] - Maple conversion [address] [place] [address] Josie Santillan MD [address] [place] [id number] Social History Tobacco Use Types Packs/Day Years Used Date Smoking Tobacco: Never Assessed Sex and Gender Information Value Date Recorded Sex Assigned at Not on file Gender Identity Female 09/30/2021 13:03 EST Sexual Orientation Not on file documented as of this encounter Plan of Treatment Not on file documented as of this encounter Visit Diagnoses * Evaluation - Josie Santillan MD - 06/23/2009 1622 EST DIVISION OF DERMATOLOGY NEW PATIENT EVALUATION - 06/16/2007 CHIEF COMPLAINT Widespread itchy rash. SUBJECTIVE The initial visit for this 16-year-old girl who complains of a widespread itchy rash. This started acutely within the past several months; she believes the rash initially started on her stomach and has subsequently spread to involve other areas of her trunk and extremities. Her scalp has at times been itchy, but her face has been spared. The rash gets worse while she is in the shower, but has been helped with short courses of prednisone; unfortunately, she recurred after the medication was stopped. She also believes that sun exposure has helped the rash improve. She cannot identify any changes in topical products including personal care products, laundry detergent, or dryer sheets which mayhave precipitated the onset of the rash. She also has not started any new oral medications. She does have a history of childhood eczema ???behind her ears.?? She has not had problems like this in the past, however. She saw her primary care doctor who told her it might be a nickel allergy; she doeswear metal belts and says all of her pants have a metal snap. She has had reactions to earrings in one of herears, but generally has not had significantly problems with metal allergies. The patient has been using Cetaphil soap and Aveeno lotion. She tried Benadryl and hydrocortisone cream with limited improvement. She was treated for possible scabies last week. She does have associated seasonal allergies. Family history is strongly positive for eczema in her mother as well as her brother. She has had noassociated systemic symptoms including wheezing, arthritis, or GI symptoms. CURRENT MEDICATIONS Oral contraceptives. ALLERGIES PENICILLIN. Please see dermatology intake sheet in chart for a complete review of systems which is entirely negative, and surgical, social, and family history. OBJECTIVE A generally well-appearing young woman who is awake, alert, and cooperative. She appears a normal weight for height. A complete skin examination was performed including scalp, face, neck, chest, back, abdomen, buttocks, both upper and lower extremities. Skin is diffusely dry and there are patches of ill-defined eczematous dermatitis on the trunk and extremities including the torso and popliteal fossae. Skin on the upper outer arms is dry with follicular prominence. Nails are somewhat shiny and there is possibly mild hyperon the palms. ASSESSMENT Atopic dermatitis. Involvement of the lower abdomen does suggest possible nickel allergy which may be contributing. PLAN I had a long discussion with the patient and her mother regarding the nature of atopic dermatitis, diagnostic and treatment options. Stressed the necessity for regular use of emollients and suggestedfragrance-free products such as Aveeno and/or Theraplex We will treat the rash with triamcinolone 0.1% cream which is to be applied b.i.d. to areas except for the face, axillae, thighs, and groin area where 1% hydrocortisone may be used. I warned her about potential for striae formation. Once the rash starts to calm down, she can decrease frequency to once a day. Should use emollients daily. Atarax 25 mg p.o.up to q.i.d. may be taken as needed for itching; warned about potential for sedation. They may want to try Claritin OTC during the daytime. Should avoid nickel exposure and discussed strategies for this. We will have her follow up in six weeks to reevaluate and they can call in the interim with any concerns or problems. Signed by Josie Santillan MD 07/10/2007 16:03 Josie Santillan MD - Josie Santillan MD - terry Job ID: [id number] Doc ID: [id number] cc: Cathy Diaz MD documented in this encounter Care Teams Casino Porter Relationship Specialty Start Date End Date Cathy Diaz MD [address] [place] [phone] PCP - General 01/05/09 09/17/21 documented as of this encounter
--- OUTSIDE RECORDS SUMMARY | 2024-03-17 09:55 | XMS_ITS | Encounter Summary ---
Author Organization [facility] Address [address] [place] [address] Care Team Providers Care Passenger Attendant Name Role Phone Cathy Diaz MD Primary Care Provider [phone] Encounter Details Date Type Department Care Team (Late st Contact Info) Description 12/30/2016 Results Only [facility] [phone] Zoila Rdz MD [address] [place] [phone] Social History Tobacco Use Types Packs/Day Years [...] Diagnosis Comments PAP TEST- RESULT ONLY Routine 12/30/2016 0:00 EDT documented in this encounter Results * PAP TEST- RESULT ONLY (12/30/2016 0:00 EDT) Pathology Report: CYTOPATHOLOGY REPORT Reports generated via electronic interface contain original data; however they are lacking the format of the original report. Caution should be taken when reading/interpreti ng unformatted reports. Name: ? MALIA LEDESMA ? Accession #: ? [id number] : ? 1990 (Age: 26) ??F ?Collect Date: ? 12/30/2016 Location: ? [facility] ? Receive Date: ? 01/02/2017 Provider: ?ZOILA RDZ MD Copy to: ? Specimen/Source: ?Pap Test, Cervix/Endocervix, ThinPrep Imaging System with manual evaluation Last Menstrual Period: ? unknown Menstrual/Pregnanc y Status: ? Post Hormonal/Contracep tive Status: ? None ? SPECIMEN ADEQUACY ? Satisfactory for Evaluation - transformation zone component present GENERAL CATEGORIZATION ? Negative for Intraepithelial Lesion or Malignancy INTERPRETATION ? Reactive cellular changes associated with inflammation present (includes repair). Shift in glenroy present suggestive of bacterial vaginosis. ? Document reviewed and electronically signed by: ? HILARIA ZAVALA MD ? Report Date: ??01/14/2017 16:49 End of Report [facility] 12/30/2016 01/02/2017 Zoila dRz MD PATHOLOGY ORDERABLES [facility] [address] [place] [address] documented in this encounter Visit Diagnoses Not on filedocumented in this encounter Care Teams Passenger Attendant Relationship Specialty Start Date End Date Cathy Diaz MD [address] [place] [phone] PCP - General 01/05/09 09/17/21 documented as of this encounter
[2024-03-17 09:58] VITALS: BP 148/85; PULSE 64; RESP 18; TEMP 36.7; O2SAT 100
--- NOTE | 2024-03-17 10:06 | ED.GENADUL_ITS ---
Discharge Plan Disposition Patient Disposition: Home Condition: Good Discharge Details Clinical Impression: Arm vein blood clot Primary Care Provider: Randolph Harvey ED Provider: Alaina Koenig Home Meds and New Rx's Prescriptions: New Eliquis 5 mg tablet 5 mg PO BID 30 Days Qty: 60 0RF Rx Instructions: 10mg BID for one week then 5mg twice daily Continued sertraline 50 mg tablet 100 mg PO HS Patient Comments: TAKE ONE TABLET BY MOUTH EVERY DAY WITH 25MG TABLET FOR A TOTAL DAILY DOSE OF 75MG clonidine HCl 0.1 mg tablet 0.1 mg PO PRN Patient Comments: TAKE ONE TABLET BY MOUTH EVERY 6 HOURS NEEDED FOR ANXIETY OR WITHDRAWAL SYMPTOMS MAY TAKE 2 TABLETS AT BEDTIME FOR SLEEP AND ANXIETY disulfiram 250 mg tablet 250 mg PO DAILY Patient Comments: TAKE ONE TABLET BY MOUTH EVERY DAY lisdexamfetamine 50 mg capsule 40 mg PO DAILY Patient Comments: TAKE ONE CAPSULE BY MOUTH EVERY DAY multivitamin [Multiple Vitamins] Tablet 1 tab PO QAM Qty: 30 0RF Discharge Instructions Instructions: Deep Vein Thrombosis (DVT) ED Additional Instructions: Your ultrasound was concerning for a blood clot. We have given your first dose of blood thinner here today. Next dose will be tonight. This is available at your pharmacy, if you find that it is too expensive, please call back and we will discuss alternative medication. Please elevate the arm. He may find compression is beneficial. Please follow-up with your primary care in the next week for reevaluation. If you develop chest pain, shortness of breath, difficulty breathing or other new/worsening symptoms please seek care urgently once again. I do encourage you to stop smoking. Please encourage hydration. As we discussed, this medication is side effect of bleeding. If you hit your head or develop issues with bleeding please seek care urgently once again. I will call you with your lab results as soon as these are returned as well as the finalized report from the radiologist. Referrals: Randolph Harvey [Primary Care Provider] - Discharge Data Discharge Date/Time-TO BE ENTERED AT DEPARTURE: 03/17/24 12:05 HPI General Date/Time Provider Initiated Documentation: 03/17/24 09:48 . Limitations to Documentation: no limitations . Information obtained by: patient and RN notes reviewed . History of Present Illness 33 year old F presents to the emergency department with the chief complaint of pain, swelling, concerned for DVT RUE, described as moderate, with intensity rated at 5. Quality is described as aching, and is localized to the right and upper extremity. Patient reports no radiation. Patient started experiencing this day(s) and it has been constant. No relieving factors improve symptom(s), No exacerbating factors reported . Patient notes no other symptoms.. Patient did receive the following treatments prior to arrival, none Related Data Home Medications ?Medication ?Instructions ?Recorded ?Confirmed sertraline 50 mg tablet 100 mg PO HS 02/02/24 03/17/24 disulfiram 250 mg tablet 250 mg PO DAILY 02/09/24 03/17/24 lisdexamfetamine 50 mg capsule 40 mg PO DAILY 02/10/24 03/17/24 multivitamin (Multiple Vitamins 1 tab PO QAM #30 tabs 02/12/24 03/17/24 tablet) apixaban 5 mg tablet (Eliquis) 5 mg PO BID 30 days #60 tabs 03/17/24 clonidine HCl 0.1 mg tablet 0.1 mg PO PRN 03/17/24 Previous Rx's ?Medication ?Instructions ?Recorded multivitamin (Multiple Vitamins 1 tab PO QAM #30 tabs 02/12/24 tablet) apixaban 5 mg tablet (Eliquis) 5 mg PO BID 30 days #60 tabs 03/17/24 Allergies Allergy/AdvReac Type Severity Reaction Status Date / Time Penicillins AdvReac Intermediate Hives Verified 03/17/24 10:01 General Stated Complaint: GenMedical LETITIA: 4 Review of Systems Constitutional Constitutional: Reports as per HPI, Denies chills, Denies fever(s) and Denies weakness Cardiovascular Cardiovascular: Reports as per HPI and Denies dyspnea Respiratory Respiratory: Reports as per HPI, Denies cough, Denies pain on inspiration, Denies pain with cough and Denies dyspnea Musculoskeletal Musculoskeletal: Reports as per HPI Integumentary/Breasts Skin/Breast: Reports as per HPI, Denies rash and Denies wounds Neurologic Neurologic: Reports as per HPI, Reports paresthesias (intermittent, none currently) and Denies weakness Psychiatric Psychiatric: Reports anxiety Exam Const General: cooperative, healthy appearing, comfortable, no acute distress, well developed and well groomed Nutritional Appearance: average body habitus and well nourished Orientation: alert and awake Resp Effort & Inspection: normal respiratory effort, able to speak in complete sentences and no respiratory distress Cardio Rate: regular rate Rhythm: regular rhythm Skin General skin exam: no rashes or lesions noted Lesions: no lesions Rashes: no rashes Trauma: no lacerations or abrasions Neuro General: patient alert and patient awake Cognition: normal cognition Speech: speech normal Gait: normal gait Motor: muscle tone normal throughout Sensory Exam: no sensory deficits noted Extrem Elbow/forearm/wrist images: 2 1. Area of palpable cord. No surrounding erythema. Just distal to this, patient does have a small round elevated lesion which she feels is associated with IV insertion. No palpable cord elsewhere. Course Vital Signs Vital signs: Vital Signs Temperature 36.7 C 03/17/24 09:58 Pulse 64 03/17/24 09:58 Respiratory Rate 18 03/17/24 09:58 Blood Pressure 148/85 H 03/17/24 09:58 Pulse Oximetry 100 03/17/24 09:58 Temperature 36.7 C 03/17/24 09:58 Temperature Source Temporal Artery Scan 03/17/24 09:58 Pulse 64 03/17/24 09:58 Respiratory Rate 18 03/17/24 09:58 Respiratory Effort Normal, Non-Labored 03/17/24 10:00 Blood Pressure 148/85 H 03/17/24 09:58 Blood Pressure Position Sitting 03/17/24 09:58 Pulse Oximetry 100 03/17/24 09:58 Oxygen Delivery Method Room Air 03/17/24 09:58 Oxygen Flow Rate 0 03/17/24 09:58 Pain Level 5 03/17/24 09:58 Medical Decision Making Patient is a pleasant 33-year-old female presenting today with chief complaint of possible blood clot in the right upper extremity. She reports that she was admitted several times over the past couple of months for alcohol abuse. Has been sober for the past month. Since being admitted, she did note a small raised tender nodule on the right forearm along the ulnar side midshaft. She has since been noticing that she has been developing a palpable tender firm area moving proximally along area concerning for venous structure. She never had a blood clot in the past. He is not on any estrogen supplementation. Patient is an active smoker. Denies any shortness of breath or difficulty breathing. No pleuritic pain. She does state that she has profound anxiety at baseline can occasionally have palpitations. Unclear status. LMP 1 month ago. On exam, patient appears anxious but otherwise nontoxic. She is hemodynamically stable with no indications to suggest PE, no tachycardia or hypoxia. Lungs are clear, normal cardiac exam. Exam of the right upper extremity shows a area that appears slightly bruised and linear in nature with a palpable cord along the ulnar side of the right forearm on the anterior surface. Measures about 2 inches in length. No surrounding erythema or warmth. No break in the skin. This is extending from a smaller circular firm area likely from IV insertion site based on patient's history. She did state that she had an IV in that location historically. Patient I discussed that this certainly could potentially be a blood clot. It does seem more superficial than deep. I do feel that formal ultrasound of the upper extremity is appropriate at this time. However, also discussed that this could be a scar tissue developing in the setting of recent IV placement. Will obtain a urine test as well as upper extremity ultrasound. Patient in agreement with this plan. Per US tech, patient has two areas of small superficial clot but likely adds to >5cm. Waiting for final read. While data on this is limited, concerned that she will need anticoagulation. Discussed at length with the patient. Patient has a leave for a meeting. However, she agrees to me calling her with labs. As we are beginning anticoagulation, I do feel that labs are appropriate and will obtain baseline labs and coags. Will also call with formal report of the ultrasound and if this differs at all or changes or management plan, will have patient return. Patient I discussed risk and benefits of the anticoagulation. I do not see any clinical indication at this time that she has more significant clot, DVT, PE and do feel the safe with outpatient management. Return precautions discussed at length. Labs reviewed. No significant abnormality. Contacted by the radiologist to agrees with the ultrasound techs reading where there is 2 superficial areas of thrombi in the right upper extremity with no evidence of DVT. However, these do at up to over 5 cm so plan for continued anticoagulation is appropriate and we will not be changing. I did call the patient as she reported her cell phone would be best mode to get a hold of her, left a message and advised that she call back so we can discuss. I did encourage that she had followed up with her primary care. Quality:SDOH Health Related Social Needs: 2 Health related social needs risk of homeless Health related social needs details FLOR PFSH All Active Problems (Updated 03/17/24 @ 11:33 by FRANKLIN Sexton) Arm vein blood clot (Acute) Smoker (Acute) Alcoholic hepatitis (Chronic) Alcohol use disorder, severe, dependence (Chronic) Herpes simplex type 1 infection (Acute 12/19/16) Eczema (Chronic) ADHD (attention deficit hyperactivity disorder), combined type (Chronic) Generalized anxiety disorder (Chronic) Depression (Acute) Medical History (Updated 03/17/24 @ 11:33 by FRANKLIN Sexton) Benzodiazepine abuse Presence of intrauterine contraceptive device (IUD) Paragard IUD placed 12/01/23 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 Vanessa Bryan MD History of calculus of kidney during (12/19/16) History of substance abuse (12/19/16) History of acute pyelonephritis Surgical History EGD w/Bx for H.Pylori (07/29/08) [facility] Cystoscopy (01/05/18) [facility] [place] with R ureteral stent placement Family History Father , OD at age 42. Substance abuse Essential hypertension Mother Mental disorder Bipolar d/o Neoplasm small cell neuroendocrine carcinoma Sister Substance abuse Mental disorder Bipolar d/o Brother Substance abuse Mental disorder Bipolar d/o Brother Substance abuse Mental disorder Bipolar d/o Grandmother Neoplasm Breast CA Social History Smoking/Tobacco Use Status: Current every day Tobacco Type: cigarettes and e- cigarettes Tobacco: How many years used: 10 Quit status: has quit before Counseling given: provider counseling Smoking risk assessment performed?: Yes Alcohol Intake: current Alcohol Intake frequency: 3 or more drinks per day Alcohol type: beer, wine and hard liquor Details: Decided to quit drinking. Stopped 01/2019 Drug use: Never Substance use type: marijuana Adopted: No Foster care: No Household members: significant other and children Housing: apartment Number of Children: 2 current occupation: [employer] Pets and animals: Yes (1 dog) What type of physical activity do you participate in: regular exercise Duration: other Details: cleaning Frequency: daily Do you feel safe at home: Yes Do you feel safe in your relationship?: Yes Female Reproductive History Menstrual Duration of menses: 6-7 days control method: copper IUCD History History 2 2 Para 2 Hx # Term Pregnancies 2 Multiple births 0 Hx # Pregnancies 0 Ectopic pregnancies 0 AB induced 0 Hx Number of Living Children 2 AB spontaneous 0 Past Pregnancies Del. Date GA/Weeks # Preg Succ Route Wgt Sex Labor Lgth [facility] 40 vaginal 2920.001 g Female 9 hours regional 12/22/18 40 No vaginal 3685.438 g Female Sudhir Bauer CNM Delivery Date: 11/20/16 Last Updated by: Vale Bauer Delivered at [place]
--- NOTE | 2024-03-17 10:15 | DI.US_ITS ---
Exam(s) US UPPER EXTREMITY VENOUS RT EXAM: US UPPER EXTREMITY VENOUS RT CLINICAL HISTORY: palpable vein, pain after IV. TECHNIQUE: Ultrasound examination of the right upper extremity venous system(s) is performed using g rayscale, color-flow, and spectral Doppler analysis. COMPARISON: No exams were available for comparison FINDINGS: Right Deep Veins:The visualized internal jugular and subclavian veins are patent. The axillary and b rachial veins are patent and display normal color flow, augmentation and compressibility. Superficial Veins:There is noncompressible hypoechoic thrombus in the right cephalic vein measuring a lmost 5 cm in length in total. The basilic and median cubital veins are patent. There is thrombus s een in a superficial vein in the forearm measuring approximately 2.4 cm in length. Soft tissues: Unremarkable. IMPRESSION: 1. No evidence of a right upper extremity deep venous thrombosis. 2. Superficial thrombophlebitis. 3. Findings were discussed with Alaina Koenig at 3:10 p.m. on 03/17/2024. DATA REPOSITORY:
[2024-03-17] MEDS: Apixaban 5 MG TAB 10 MG PO (11:41)
[2024-03-17 11:57] LABS: Abs Immature Grans 0.03 10^3/uL (0.0-0.06); Absolute Basophil Count 0.05 10^3/uL (0.0-0.2); Absolute Eosinophil Count 0.06 10^3/uL (0.0-0.7); Absolute Lymphocyte Count 1.23 10^3/uL (1.2-3.4); Absolute Monocyte Count 0.62 10^3/uL (0.1-0.8); Absolute Neutrophil Count 8.71 10^3/uL (1.2-6.7); Basophils % 0.5 %; Eosinophils % 0.6 %; HCT 45.8 % (36.0-46.0); Immature Grans % 0.3 %; Lymphocytes % 11.5 %; MCH 31.1 pg (27.0-33.0); MCHC 32.8 % (32.0-36.0); MCV 95 fL (80-95); MPV 10.1 fL (8.0-11.0); Monocytes % 5.8 %; Neutrophils % 81.3 %; Platelet Count 289 10^3/uL (130-400); RBC 4.82 10^6/uL (3.93-5.22); RDW-SD 42.4 fL
[2024-03-17 12:15] LABS: ALT 38 U/L (14-59); AST 17 U/L (15-37); Alkaline Phosphatase 68 U/L (46-116); BUN 5 mg/dL (7-18); Bilirubin, Total 0.33 mg/dL (0.2-1.0); CREATININE 0.8 mg/dL (0.55-1.02); Calcium 9.7 mg/dL (8.5-10.1); Chloride 104 mmol/L (98-107); Estimated GFR 100.96 (mL/min/1.73m2); Glucose 102 mg/dL (74-106); Potassium 4.4 mmol/L (3.5-5.1); Sodium 137 mmol/L (136-145); Total Protein 7.7 g/dL (6.4-8.2)
[2024-03-17 13:15] LABS: PTT Activated 25.4 sec (23.6-32.8); Prothrombin Time 9.6 sec (9.1-11.1)
== END 2024-03-17 12:05 | disposition home or self-care (01) ==
PROVIDERS: Emergency Provider Physician Assistant; PCP Student in an Organized Health Care Education/Training Program
DX: I80.8 Phlebitis and thrombophlebitis of other sites (principal); F17.210 Nicotine dependence, cigarettes, uncomplicated; F17.290 Nicotine dependence, other tobacco product, uncomplicated
CPT/HCPCS: 80053; 81025; 99284; 85025; 85610; 85730; 93971; 99283

== ENCOUNTER 2024-03-24 15:00 | Emergency (ER) | payer BC, SELFPAY ==
[2024-03-24 15:11] VITALS: BP 127/84; PULSE 85; RESP 12; TEMP 36.6; O2SAT 100
--- OUTSIDE RECORDS SUMMARY | 2024-03-24 15:11 | XMS_ITS | Encounter Summary ---
Author Organization [facility] Address [address] [place] [address] Care Team Providers Care Trouble Clerk Name Role Phone Margarito Curry MD Primary Care Provider [phone] Encounter Details Date Type Department Care Team (Late st Contact Info) Description 12/02/2023 Lab Requisition [facility] Pathology & Laboratory Medicine - [facility] [address] [place] [address] Zeny Clemente MD [address] [place] [phone] Encounter for screening for infections with [...] Imaging System with Manual Evaluation 12/08/2023 11:46 [facility] Specimen Adequacy Satisfactory for Evaluation - transformation zone component present 12/08/2023 11:46 [facility] General Categorization Epithelial Cell Abnormality 12/08/2023 11:46 [facility] Descriptive Diagnosis Squamous Cell Abnormality - Low grade squamous intraepithelial lesion (LSIL). 12/08/2023 11:46 [facility] Educational Comments [facility] recommends following the ASCCP's management guidelines which may be found at www.asccp.org 12/08/2023 11:46 [facility] Attestation By the signature below, the attending physician certifies that they have personally conducted a gross and/or microscopic examination of the described specimens and rendered or confirmed the above diagnosis. 12/08/2023 11:46 [facility] at 1146 Clinical History See below 12/08/19 11:46 [facility] Performing Lab [facility] 12/08/2023 11:46 [facility] Scanned Images 12/08/2023 11:46 [facility] Pap Test CERVIX UTERI STRUCTURE / Unknown 12/01/2023 10:25 EDT 12/02/2023 13:35 EDT Zeny Clemente MD PATHOLOGY ORDERABLES [facility] [address] [place], [place] [id number] documented in this encounter Visit Diagnoses Diagnosis Encounter for screening for infections with a predominantly sexual mode of transmission documented in this encounter Care Teams Trouble Clerk Relationship Specialty Start Date End Date Margarito Curry MD [address] [place] [address] PCP - General 09/18/21 documented as of this encounter
--- OUTSIDE RECORDS SUMMARY | 2024-03-24 15:11 | XMS_ITS | Clinical Summary ---
Author Organization [facility] Address [address] [place] [address] Care Team Providers Care Balancer Name Role Phone Margarito Curry MD Primary Care Provider [phone] Allergies Active Allergy Reactions Criticality Noted Date Comments Buspirone Other (See Comments) 09/30/2021 AMS Penicillins 04/08/2011 Medications Medication Sig Dispensed Refills Start Date End Date Status diazePAM (VALIUM) 10 mg tablet Take 10 mg p.o. 4 times daily for 48 hours then taper as per bridge program protocol. 16 Tablet 09/30/2021 Active Encounters Date Type Department Care Team Description 02/02/2024 Lab Requisition [facility] Pathology & Laboratory [address] [address] Outr Resulting Lab, Provider 12/31/2023 Lab Requisition [facility] Pathology & Laboratory [facility] [address] [place] [address] Zeny Clemente MD Encounter for other general [...] 2.8 - 5.3 pg/mL 02/02/2024 22:41 EDT [facility] Blood VENOUS BLOOD / Unknown 02/02/2024 10:30 EDT 02/02/2024 22:07 EDT Provider Outr Resulting Lab CHEMISTRY & BLOOD GAS ORDERABLES [facility] [address] [place] [address] * T3, TOTAL (02/02/2024 10:30 EDT) T3, Total 150 97 - 169 ng/dL 02/02/2024 22:56 EDT [facility] Blood VENOUS BLOOD / Unknown 02/02/2024 10:30 EDT 02/02/2024 22:07 EDT Provider Outr Resulting Lab CHEMISTRY & BLOOD GAS ORDERABLES [facility] [address], [place] [id number] * SURGICAL PATHOLOGY (12/30/2023 15:20 EDT) Note to Patient The following pathology results have been interpreted by your pathologist and may be available to you before your health provider has had the opportunity to review them. Please allow time for your provider to receive these results and explore management options, if applicable. 01/02/2024 11:12 [facility] Final Diagnosis A. CERVIX, 7 O' CLOCK, CYTOBRUSH: - Superficial fragments of benign squamous mucosa and endocervical glands. 01/02/2024 11:12 T [facility] Diagnosis Comment The specimen is markedly fragmented and poorly preserved, limiting evaluation. No definitive dysplasia is identified. Deeper sections have been examined. 01/02/2024 11:12 [facility] Attestation There was significant resident/fellow involvement in the diagnostic evaluation of this case. By the signature below, the attending physician certifies that they have personally conducted a gross and/or microscopic examination of the described specimens and rendered or confirmed the above diagnosis. 01/02/2024 11:12 [facility] at 1112 Clinical History LSIL 01/02/2024 11:12 [facility] Gross Description A. Received in formalin on a Histologic SFT-1000 device labelled with proper patient identification (initials C, E) and 7 o'clock cervix is an aggregate of transparent su mucus and admixed su wispy tissue fragments (0.6 x 0.5 x 0.1 cm). Entirely submitted in A1. Pao Vallecillo 12/31/2023 9:10 01/02/2024 11:12 [facility] Resident/Vikas w: Kary Javier MD 01/02/2024 11:12 EDT [facility] Performing Lab [facility] 01/02/2024 11:12 EDT [facility] Scanned Images 01/02/2024 11:12 EDT [facility] Tissue CERVIX UTERI STRUCTURE / Unknown 12/30/2023 15:20 EDT 12/31/2023 8:16 EDT Zeny Clemente MD PATHOLOGY ORDERABLES [facility] [address] [place] [address] * HEPATITIS C AB W REFLEX TO HCV RNA BY PCR (10/31/2023 16:55 EDT) Hep C Antibody Negative Negative 11/03/2023 10:39 EDT [facility] Blood VENOUS BLOOD / Unknown 10/31/2023 16:55 EDT 11/01/2023 21:34 EDT Provider Outr Resulting Lab CHEMISTRY & BLOOD GAS ORDERABLES [facility] [address] [place] [address] from Last 3 Months or Most Recently Relevant to Health Maintenance Care Teams Balancer Relationship Specialty Start Date End Date Margarito Curry MD [address] [facility], [place] [address] PCP - General 09/18/21
--- OUTSIDE RECORDS SUMMARY | 2024-03-24 15:11 | XMS_ITS | Referral Summary ---
Author Organization [facility] Address [address] [place] [address] Care Team Providers Care School Occupational Therapist Name Role Phone Margarito Curry MD Primary Care Provider Encounters Date Type Department Care Team Description 02/02/2024 Lab Requisition [facility] Pathology & Laboratory [address] [address] Outr Resulting Lab, Provider 12/31/2023 Lab Requisition [facility] Pathology & Laboratory [address] [address] Zeny Clemente MD Encounter for other general [...] 2.8 - 5.3 pg/mL 02/02/2024 22:41 EDT [facility] Blood VENOUS BLOOD / Unknown 02/02/2024 10:30 EDT 02/02/2024 22:07 EDT Provider Outr Resulting Lab CHEMISTRY & BLOOD GAS ORDERABLES Performing Organization Address City/State/[facility] Co de Phone Number [facility] [address] [place] [address] * T3, TOTAL (02/02/2024 10:30 EDT) T3, Total 150 97 - 169 ng/dL 02/02/2024 22:56 EDT [facility] Blood VENOUS BLOOD / Unknown 02/02/2024 10:30 EDT 02/02/2024 22:07 EDT Provider Outr Resulting Lab CHEMISTRY & BLOOD GAS ORDERABLES [facility] [address] [place] [address] * SURGICAL PATHOLOGY (12/30/2023 15:20 EDT) Note to Patient The following pathology results have been interpreted by your pathologist and may be available to you before your health provider has had the opportunity to review them. Please allow time for your provider to receive these results and explore management options, if applicable. 01/02/2024 11:12 EDT [facility] Final Diagnosis A. CERVIX, 7 O' CLOCK, CYTOBRUSH: - Superficial fragments of benign squamous mucosa and endocervical glands. 01/02/2024 11:12 T [facility] Diagnosis Comment The specimen is markedly fragmented and poorly preserved, limiting evaluation. No definitive dysplasia is identified. Deeper sections have been examined. 01/02/2024 11:12 [facility] Attestation There was significant resident/fellow involvement in the diagnostic evaluation of this case. By the signature below, the attending physician certifies that they have personally conducted a gross and/or microscopic examination of the described specimens and rendered or confirmed the above diagnosis. 01/02/2024 11:12 [facility] at 1112 Clinical History LSIL 01/02/2024 11:12 [facility] Gross Description A. Received in formalin on a Histologic SFT-1000 device labelled with proper patient identification (initials C, E) and 7 o'clock cervix is an aggregate of transparent su mucus and admixed su wispy tissue fragments (0.6 x 0.5 x 0.1 cm). Entirely submitted in A1. Pao Vallecillo 12/31/2023 9:10 01/02/2024 11:12 [facility] Resident/Vikas w: Kary Javier MD 01/02/2024 11:12 [facility] Performing Lab [facility] 01/02/2024 11:12 [facility] Scanned Images 01/02/2024 11:12 EDT [facility] Tissue CERVIX UTERI STRUCTURE / Unknown 12/30/2023 15:20 EDT 12/31/2023 8:16 EDT Zeny Clemente MD PATHOLOGY ORDERABLES Performing Organization Address City/[facility] [address]/ZIP Co de Phone Number [facility] [address] [place], [place] [id number] * HEPATITIS C AB W REFLEX TO HCV RNA BY PCR (10/31/2023 16:55 EDT) Hep C Antibody Negative Negative 11/03/2023 10:39 EDT [facility] Blood VENOUS BLOOD / Unknown 10/31/2023 16:55 EDT 11/01/2023 21:34 EDT Provider Outr Resulting Lab CHEMISTRY & BLOOD GAS ORDERABLES Performing Organization Address [facility] [address]/ZIP Co de Phone Number [facility] [address] [place], [place] [address] from Last 3 Months or Most Recently Relevant to Health Maintenance Care Teams School Occupational Therapist Relationship Specialty Start Date End Date Margarito Curry MD [address] [facility], [place] [phone] PCP - General 09/18/21
--- OUTSIDE RECORDS SUMMARY | 2024-03-24 15:11 | XMS_ITS | Encounter Summary ---
Author Organization [facility] Address [address] [place] [address] Care Team Providers Care Commercial Real Estate Paralegal Name Role Phone Margarito Curry MD Primary Care Provider [phone] Encounter Details Date Type Department Care Team (Late st Contact Info) Description 12/31/2023 Lab Requisition [facility] Pathology & Laboratory Medicine - [facility] [address] [place] [address] Zeny Clemente MD [address] [place] [phone] Encounter for other general examination Social [...] management options, if applicable. 01/02/2024 11:12 EDT [facility] Final Diagnosis A. CERVIX, 7 O' CLOCK, CYTOBRUSH: - Superficial fragments of benign squamous mucosa and endocervical glands. 01/02/2024 11:12 EDT [facility] Diagnosis Comment The specimen is markedly fragmented and poorly preserved, limiting evaluation. No definitive dysplasia is identified. Deeper sections have been examined. 01/02/2024 11:12 T [facility] Attestation There was significant resident/fellow involvement in the diagnostic evaluation of this case. By the signature below, the attending physician certifies that they have personally conducted a gross and/or microscopic examination of the described specimens and rendered or confirmed the above diagnosis. 01/02/2024 11:12 [facility] at 1112 Clinical History LSIL 01/02/2024 11:12 [facility] Gross Description A. Received in formalin on a Histologic SFT-1000 device labelled with proper patient identification (initials C, E) and 7 o'clock cervix is an aggregate of transparent su mucus and admixed su wispy tissue fragments (0.6 x 0.5 x 0.1 cm). Entirely submitted in A1. Pao Vallecillo 12/31/2023 9:10 01/02/2024 11:12 T [facility] Resident/Vikas w: Kary Javier MD 01/02/2024 11:12 T [facility] Performing Lab [facility] 01/02/2024 11:12 [facility] Scanned Images 01/02/2024 11:12 [facility] Tissue CERVIX UTERI STRUCTURE / Unknown 12/30/2023 15:20 EDT 12/31/2023 8:16 EDT Zeny Clemente MD PATHOLOGY ORDERABLES [facility] [address] [place] [address] documented in this encounter Visit Diagnoses Diagnosis Encounter for other general examination documented in this encounter Care Teams Commercial Real Estate Paralegal Relationship Specialty Start Date End Date Margarito Curry MD [address] [place] [address] PCP - General 09/18/21 documented as of this encounter
--- OUTSIDE RECORDS SUMMARY | 2024-03-24 15:11 | XMS_ITS | Encounter Summary ---
Author Organization [facility] Address [address] [place] [address] Care Team Providers Care Storage Solutions Architect Name Role Phone Margarito Curry MD Primary Care Provider [phone] Encounter Details Date Type Department Care Team (Late st Contact Info) Description 02/02/[address] [facility] Pathology & Laboratory Medicine - [facility] [address] [place], [place] [phone] Outr Resulting Lab, Provider Social History Tobacco [...] 2.8 - 5.3 pg/mL 02/02/2024 22:41 EDT [facility] Blood VENOUS BLOOD / Unknown 02/02/2024 10:30 EDT 02/02/2024 22:07 EDT Provider Outr Resulting Lab CHEMISTRY & BLOOD GAS ORDERABLES Performing Organization Address City/[facility]/ZIP Co de Phone Number [facility] [address] [place], [place] [address] * T3, TOTAL (02/02/2024 10:30 EDT) T3, Total 150 97 - 169 ng/dL 02/02/2024 22:56 EDT [facility] Blood VENOUS BLOOD / Unknown 02/02/2024 10:30 EDT 02/02/2024 22:07 EDT Provider Outr Resulting Lab CHEMISTRY & BLOOD GAS ORDERABLES Performing Organization Address [facility] de Phone Number [facility] [address] [place] [address] documented in this encounter Visit Diagnoses Not on filedocumented in this encounter Care Teams Storage Solutions Architect Relationship Specialty Start Date End Date Margarito Curry MD [facility] [place] [address] PCP - General 09/18/21 documented as of this encounter
--- OUTSIDE RECORDS SUMMARY | 2024-03-24 15:12 | XMS_ITS | Encounter Summary ---
Author Organization [facility] Address [address] [place] [address] Care Team Providers Care Cloth Cutting Machine Operator Name Role Phone Margarito Curry MD Primary Care Provider [phone] Encounter Details Date Type Department Care Team (Late st Contact Info) Description 01/21/2023 Lab Requisition [facility] Pathology & Laboratory Medicine - [facility] [address] [place] [address] Zeny Clemente MD [address] [place] [phone] Encounter for other general examination Social [...] explore management options, if applicable. 01/23/2023 16:59 [facility] Final Diagnosis A. CERVIX, 6-7 O'CLOCK, BIOPSY: - Fragments of benign endocervix and benign squamous epithelium. B. ENDOCERVIX, CURETTAGE: - Fragments of benign endocervix. 01/23/2023 16:59 [facility] Diagnosis Comment The previous Pap test ([id number]) has been reviewed and the presence of atypical cells is confirmed. Similar abnormal cells to those seen on the Pap test are not identified in the current case. Deeper sections have been examined. 01/23/2023 16:59 [facility] Attestation By the signature below, the attending physician certifies that they have 1) personally conducted a gross and/or microscopic examination of the described specimen(s), and/or personally interpreted the results of laboratory testing of the described specimen(s), and 2) personally rendered or confirmed the above diagnosis. 01/23/2023 16:59 [facility] at 1659 Clinical History LSIL Pap/HPV + 01/23/2023 16:59 [facility] Gross Description A. [...] B1. Pao Pandya 01/21/2023 14:13 01/23/2023 16:59 [facility] Performing Lab [facility] 01/23/2023 16:59 [facility] Scanned Images 01/23/2023 16:59 EDT [facility] Tissue ENTIRE ENDOCERVIX / Unknown 01/20/2023 16:08 EDT 01/21/2023 8:07 EDT Tissue specimen (specimen) ENDOCERVICAL STRUCTURE / Unknown 01/20/2023 16:08 EDT 01/21/2023 8:09 EDT Zeny Clemente MD PATHOLOGY ORDERABLES [facility] [address] [place] [address] documented in this encounter Visit Diagnoses Diagnosis Encounter for other general examination documented in this encounter Care Teams Cloth Cutting Machine Operator Relationship Specialty Start Date End Date Margarito Curry MD [address] [place] [address] PCP - General 09/18/21 documented as of this encounter
--- OUTSIDE RECORDS SUMMARY | 2024-03-24 15:12 | XMS_ITS | Encounter Summary ---
Author Organization [facility] Address [address] [place] [address] Care Team Providers Care Nut Grader Name Role Phone Cathy Diaz MD Primary Care Provider [phone] Encounter Details Date Type Department Care Team (Late st Contact Info) Description 12/30/2016 Results Only [facility] [phone] Zoila Rdz MD [address] [place] [phone] Social History Tobacco Use Types Packs/Day Years [...] ? MALIA LEDESMA ? Accession #: ? [id number] : ? 1990 (Age: 26) ??F ?Collect [...] reviewed and electronically signed by: ? HILARIA ZVAALA MD ? Report Date: ??01/14/2017 16:49 End of Report [facility] 12/30/2016 01/02/2017 Zoila Rdz MD PATHOLOGY ORDERABLES [facility] [address] [place] [address] documented in this encounter Visit Diagnoses Not on filedocumented in this encounter Care Teams Nut Grader Relationship Specialty Start Date End Date Cathy Diaz MD [address] [place] [phone] PCP - General 01/05/09 09/17/21 documented as of this encounter
--- OUTSIDE RECORDS SUMMARY | 2024-03-24 15:12 | XMS_ITS | Encounter Summary ---
Author Organization [facility] Address [address] [place] [address] Care Team Providers Care Senior Drupal Developer Name Role Phone Margarito Curry MD Primary Care Provider [phone] Encounter Details Date Type Department Care Team (Late st Contact Info) Description 11/02/2021 Lab Requisition [facility] Pathology & Laboratory Medicine - [facility] [address] [place] [address] Margarito Curry MD [address] [place] [phone] Encounter for other general examination Social History [...] Imaging System with Manual Evaluation 11/12/2021 11:23 [facility] Specimen Adequacy Satisfactory for Evaluation - transformation zone component present 11/12/2021 11:23 T [facility] General Categorization Epithelial Cell Abnormality 11/12/2021 11:23 [facility] Descriptive Diagnosis Squamous Cell Abnormality - Low grade squamous intraepithelial lesion (LSIL). 11/12/2021 11:23 [facility] Educational Comments [facility] recommends following ASCCP's 2012 Updated Consensus Guidelines for the Management of Abnormal Cervical Cancer Screening Tests and Cancer Precursors (JLGTD, 2013; 17(5):S1-S27). Consensus guidelines are available online at www.asccp.org. 11/12/2021 11:23 [facility] Attestation By the signature below, the attending physician certifies that they have personally conducted a gross and/or microscopic examination of the described specimens and rendered or confirmed the above diagnosis. 11/12/2021 11:23 [facility] at 1123 Clinical History See below 11/13/19 11:23 [facility] Performing Lab [facility] 11/12/2021 11:23 [facility] Scanned Images 11/12/2021 11:23 [facility] Papanicolaou smear specimen (specimen) CERVIX UTERI STRUCTURE / Unknown 11/02/2021 12:30 EDT 11/05/2021 14:36 EDT Margarito Curry MD PATHOLOGY ORDERABLES [facility] [address] [place] [id number] * CHLAMYDIA/N. GONORRHOEAE AMPLIFIED RNA, THINPREP (11/02/2021 12:30 EDT) Neisseria gonorrhoeae Result Negative Negative 11/05/2021 15:27 EDT [facility] Chlamydia trachomatis Result Negative Negative 11/05/2021 15:27 EDT [facility] Papanicolaou smear specimen (specimen) CERVIX UTERI STRUCTURE / Unknown 11/02/2021 12:30 EDT 11/05/2021 8:36 EDT Margarito Curry MD MICROBIOLOGY - GENER AL ORDERABLES [facility] [address] [place] [address] documented in this encounter Visit Diagnoses Diagnosis Encounter for other general examination documented in this encounter Additional Health Concerns Infection Onset Date Last Indicated Resolved Time Influenza 07/22/2022 07/22/2022 08/01/2022 22:1 5 EST documented as of this encounter Care Teams Senior Drupal Developer Relationship Specialty Start Date End Date Margarito Curry MD [address] [place] [address] PCP - General 09/18/21 documented as of this encounter
--- OUTSIDE RECORDS SUMMARY | 2024-03-24 15:12 | XMS_ITS | Encounter Summary ---
Author Organization [facility] Address [address] [place] [address] Care Team Providers Care Electric Motor Repair Supervisor Name Role Phone Cathy Diaz MD Primary Care Provider [phone] Encounter Details Date Type Department Care Team (Latest Contact Info) Description 11/15/2009 13:13 EDT - 11/15/2009 13:16 EDT Hospital Encounter [facility] - Other [address] [place] [address] Cathy Diaz MD [address] [place] [phone] Discharge Disposition: Home or Self Care Social [...] on filedocumented in this encounter Care Teams Electric Motor Repair Supervisor Relationship Specialty Start Date End Date Cathy Diaz MD [address] [place] [phone] PCP - General 01/05/09 09/17/21 documented as of this encounter
--- OUTSIDE RECORDS SUMMARY | 2024-03-24 15:12 | XMS_ITS | Encounter Summary ---
Author Organization [facility] Address [address] [place] [address] Care Team Providers Care Supervisor Of Officials Name Role Phone Unavailable Primary Care Provider Unavailabl e Encounter Details Date Type Department Care Team (Latest Contact Info) Description 09/26/2008 16:04 EST Hospital Encounter [facility] - Other [address] [place] [address] Cathy Diaz MD [address] [place] [phone] Discharge Disposition: Home or Self Care Social [...]
--- OUTSIDE RECORDS SUMMARY | 2024-03-24 15:12 | XMS_ITS | Encounter Summary ---
Author Organization [facility] Address [address] [place] [address] Care Team Providers Care Food Cart Attendant Name Role Phone Cathy Diaz MD Primary Care Provider [phone] Encounter Details Date Type Department Care Team (Latest Contact Info) Description 03/14/2016 7:37 EDT - 03/14/2016 23:59 EDT Hospital Encounter [address] [address] Unknown, Provider, Discharge Disposition: Home or Self [...] Code Departure Means Destination Home or Self Penitentiary documented in this encounter Plan of Treatment Not on file documented as of this encounter Visit Diagnoses Not on filedocumented in this encounter Care Teams Food Cart Attendant Relationship Specialty Start Date End Date Cathy Diaz MD [address] [place] [phone] PCP - General 01/05/09 09/17/21 documented as of this encounter
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
--- OUTSIDE RECORDS SUMMARY | 2024-03-24 15:12 | XMS_ITS | Encounter Summary ---
Author Organization [facility] Address [address] [place] [address] Care Team Providers Care Advertising Columnist Name Role Phone Margarito Curry MD Primary Care Provider [phone] Encounter Details Date Type Department Care Team (Late st Contact Info) Description 09/30/2021 13:00 EST - 09/30/2021 14:17 EST Emergency [facility] Emergency Department - [address] [address] Dereje Allen PA-C [address] [place] [address], [address] [place] [phone] Alcohol withdrawal syndrome without complication (HCC-CMS) (HCC) [...] Code Departure Means Destination Home or Self Longterm documented in this encounter ED Notes * Dereje Allen PA-C - 09/30/2021 1316 EST This patient received an evaluation and medical screening exam for emergent medical conditions via Telemedicine by the [facility] on 09/30/2021 Today's visit was provided through telemedicine video conferencing: The location of the patient : [facility] The location of the provider:emergency department The [...] Zoom. The patient was located at the [facility] and the ED provider was located at the Emergency Department. The [facility] staff member was present for portions of [...] 1303 EST Number to call per registration [phone] documented in this encounter Plan of Treatment [...] documented as of this encounter Care Teams Advertising Columnist Relationship Specialty Start Date End Date Margarito Curry MD [facility] [place] [address] PCP - General 09/18/21 documented as of this encounter
--- OUTSIDE RECORDS SUMMARY | 2024-03-24 15:12 | XMS_ITS | Encounter Summary ---
Author Organization [facility] Address [address] [place] [address] Care Team Providers Care Brewery Pumper Name Role Phone Cathy Diaz MD Primary Care Provider [phone] Encounter Details Date Type Department Care Team (Latest Contact Info) Description 05/11/2018 13:51 EDT - 05/11/2018 23:59 EDT Hospital Encounter [address] [address] Unknown, Provider, Discharge Disposition: Home or Self [...] Code Departure Means Destination Home or Self Mcfp documented in this encounter Plan of Treatment Not on file documented as of this encounter Visit Diagnoses Not on filedocumented in this encounter Care Teams Brewery Pumper Relationship Specialty Start Date End Date Cathy Diaz MD [address] [place] [phone] PCP - General 01/05/09 09/17/21 documented as of this encounter
--- OUTSIDE RECORDS SUMMARY | 2024-03-24 15:12 | XMS_ITS | Encounter Summary ---
Author Organization [facility] Address [address] [place] [address] Care Team Providers Care Video Games Storywriter Name Role Phone Margarito Curry MD Primary Care Provider [phone] Encounter Details Date Type Department Care Team [...] on filedocumented in this encounter Care Teams Video Games Storywriter Relationship Specialty Start Date End Date Margarito Curry MD [place] [address] PCP - General 09/18/21 documented as of this encounter
--- OUTSIDE RECORDS SUMMARY | 2024-03-24 15:12 | XMS_ITS | Encounter Summary ---
Author Organization [facility] Address [address] [place] [address] Care Team Providers Care Blankbook Forwarder Name Role Phone Margarito Curry MD Primary Care Provider [phone] Encounter Details Date Type Department Care Team (Late st Contact Info) Description 11/03/2021 Lab Requisition [facility] Pathology & Laboratory Medicine - [facility] [address] [place], [place] [phone] Outr Resulting Lab, Provider Social History Tobacco [...] Syphilis Serology Negative Negative 11/05/2021 11:59 EDT [facility] Blood VENOUS BLOOD / Unknown 11/02/2021 12:50 EDT 11/03/2021 21:52 EDT Provider Outr Resulting Lab IMMUNOLOGY A ND SEROLOGY ORDERABLES Performing Organization Address City/State/[facility] Co de Phone Number [facility] [address] [place] [address] documented in this encounter Visit Diagnoses Not on filedocumented in this encounter Additional Health Concerns Infection Onset Date Last Indicated Resolved Time Influenza 07/22/2022 07/22/2022 08/01/2022 22:1 5 EST documented as of this encounter Care Teams Blankbook Forwarder Relationship Specialty Start Date End Date Margarito Curry MD [address] [place] [address] PCP - General 09/18/21 documented as of this encounter
--- OUTSIDE RECORDS SUMMARY | 2024-03-24 15:12 | XMS_ITS | Encounter Summary ---
Author Organization [facility] Address [address] [place] [address] Care Team Providers Care Search Consultant Name Role Phone Margarito Curry MD Primary Care Provider [phone] Encounter Details Date Type Department Care Team (Late st Contact Info) Description 11/01/2023 Lab Requisition [facility] Pathology & Laboratory Medicine - [facility] [address] [place], [place] [phone] Outr Resulting Lab, Provider Social History Tobacco [...] gonorrhoeae Result Negative Negative 11/03/2023 12:58 EDT [facility] Chlamydia trachomatis Result Negative Negative 11/03/2023 12:58 EDT [facility] Swab ENDOCERVICAL STRUCTURE / Unknown 10/31/2023 16:55 EDT 11/02/2023 16:06 EDT Provider Outr Resulting Lab MICROBIOLOGY - GENERAL ORDERABLES [facility] [address] [place], [place] [address] documented in this encounter Visit Diagnoses Not on filedocumented in this encounter Care Teams Search Consultant Relationship Specialty Start Date End Date Margarito Curry MD [place] [address] PCP - General 09/18/21 documented as of this encounter
--- OUTSIDE RECORDS SUMMARY | 2024-03-24 15:12 | XMS_ITS | Encounter Summary ---
Author Organization [facility] Address [address] [place] [address] Care Team Providers Care Seater Grinder Name Role Phone Cathy Diaz MD Primary Care Provider Margarito Curry MD Primary Care Provider [phone] Encounter Details Date Type Department Care Team (Late st Contact Info) Description 04/28/2021 Lab Requisition [facility] Pathology & Laboratory Medicine - [address] [phone] Outr Resulting Lab, Provider Social History Tobacco [...] gonorrhoeae Result Negative Negative 04/30/2021 14:06 EDT [facility] Chlamydia trachomatis Result Negative Negative 04/30/2021 14:06 EDT [facility] Swab ENTIRE VAGINA / Unknown 04/27/2021 12:40 EDT 04/29/2021 16:19 EDT Provider Outr Resulting Lab MICROBIOLOGY - GENERAL ORDERABLES [facility] [address] [place] [address] documented in this encounter Visit Diagnoses Not on filedocumented in this encounter Additional Health Concerns Infection Onset Date Last Indicated Resolved Time Influenza 07/22/2022 07/22/2022 08/01/2022 22:1 5 EST documented as of this encounter Care Teams Seater Grinder Relationship Specialty Start Date End Date Cathy Diaz MD [address] [place] [phone] PCP - General 01/05/09 09/17/21 Margarito Curry MD [address] [place] [address] [place] [address] PCP - General 09/18/21 documented as of this encounter
--- OUTSIDE RECORDS SUMMARY | 2024-03-24 15:12 | XMS_ITS | Encounter Summary ---
Author Organization [facility] Address [address] [place] [address] Care Team Providers Care Industrial Analyst Name Role Phone Cathy Diaz MD Primary Care Provider [phone] Margarito Curry MD Primary Care Provider [phone] Encounter Details Date Type Department Care Team (Late st Contact Info) Description 04/07/2020 Lab Requisition [facility] Pathology & Laboratory Medicine - [address] [phone] Outr Resulting Lab, Provider Social History Tobacco [...] gonorrhoeae Result Negative Negative 04/10/2020 14:02 EDT [facility] Chlamydia trachomatis Result Negative Negative 04/10/2020 14:02 EDT [facility] Urine URINE / Unknown 04/06/2020 1 6:30 EDT 04/07/2020 15:33 EDT Narrative [facility] - 04/10/2020 14:02 EDT A first catch urine specimen is acceptable for detection of Gonorrhea and Chlamydia, but might detect up to 10% fewer infections when compared with vaginal and endocervical swab samples. Provider Outr Resulting Lab MICROBIOLOGY - GENERAL ORDERABLES [facility] [address] [place] [address] documented in this encounter Visit Diagnoses Not on filedocumented in this encounter Additional Health Concerns Infection Onset Date Last Indicated Resolved Time Influenza 07/22/2022 07/22/2022 08/01/2022 22:1 5 EST documented as of this encounter Care Teams Industrial Analyst Relationship Specialty Start Date End Date Cathy Diaz MD [address] [place] [phone] PCP - General 01/05/09 09/17/21 Margarito Curry MD [address] [place] [address] PCP - General 09/18/21 documented as of this encounter
--- OUTSIDE RECORDS SUMMARY | 2024-03-24 15:12 | XMS_ITS | Encounter Summary ---
Author Organization [facility] Address [address] [place] [address] Care Team Providers Care Audio Visual Production Specialist Name Role Phone Cathy Diaz MD Primary Care Provider [phone] Margarito Curry MD Primary Care Provider [phone] Encounter Details Date Type Department Care Team (Late st Contact Info) Description 05/17/2021 Lab Requisition [facility] Pathology & Laboratory Medicine - [address] [phone] Outr Resulting Lab, Provider Social History Tobacco [...] Syphilis Serology Negative Negative 05/18/2021 10:14 EDT [facility] Blood VENOUS BLOOD / Unknown 05/16/2021 11:30 EDT 05/17/2021 16:14 EDT Provider Outr Resulting Lab IMMUNOLOGY A ND SEROLOGY ORDERABLES [facility] [address] [place] [address] documented in this encounter Visit Diagnoses Not on filedocumented in this encounter Additional Health Concerns Infection Onset Date Last Indicated Resolved Time Influenza 07/22/2022 07/22/2022 08/01/2022 22:1 5 EST documented as of this encounter Care Teams Audio Visual Production Specialist Relationship Specialty Start Date End Date Cathy Diaz MD [address] [place] [phone] PCP - General 01/05/09 09/17/21 Margarito Curry MD [address] [place] [address] [place] [address] PCP - General 09/18/21 documented as of this encounter
--- OUTSIDE RECORDS SUMMARY | 2024-03-24 15:12 | XMS_ITS | Encounter Summary ---
Author Organization [facility] Address [address] [place] [address] Care Team Providers Care Validation Leader Name Role Phone Margarito Curry MD Primary Care Provider [phone] Reason for Visit * Reason Comments Anxiety Chest Pain Encounter Details Date Type Department Care Team (Late st Contact Info) Description 10/04/2021 0:18 EST - 10/04/2021 2:16 EST Emergency [facility] Emergency Department - [address] [phone] Cassi David PA-C [address] [facility], Level [address] [place] [address] Anxiety (Primary Dx) Discharge Disposition: [...] is overwhelming, please contact Crisis Services at [phone]. documented in this encounter Medications at Time [...] exam for emergent medical conditions at the [facility] on 10/04/2021 Chief Complaint Panic attack HPI [...] most recently presented to the ED at [facility] on Friday as she had run out of her home lorazepam. The patient reports that she has a plan for admission to [facility]. She is adamant there is no SI or HI and is looking forward to going to [facility] for further management. History was provided by: [...] the patient is planned to go to [facility] on Friday. Theyare comfortable with the patient [...] has them frequently, and has [facility]. Aggravating factor isdeath of mother. Received valium [...] EDT) 10/30/2021 16:1 9 EDT Scan 2 Substitute Nurse PROCEDURE/MINOR NEDRA GICAL ORDERABLES * EKG 12-LEAD (10/04/2021 0:33 EST) 10/04/2021 0:33 EST Narrative [facility] EKG - 10/30/2021 16:14 EDT ?[facility] Emergency ? Test Date: ?2021-10-04 Pat Name: ? MALIA LEDESMA ? Department: ?? ED ? Room: ? GT40 Gender: ? Female ? Spray Operator: ?? : ?1990 ? Requested By: BERNICE Bernal Order Number: [id number] ? Reading MD: ?? JUDIT ALETA MD ? Measurements Intervals ?[place] ? Rate: ? 78 ? P: ?42 DE: ? 123 ?QRS: ?11 QRSD: ? 81 ? T: ?20 QT: ? 363 ? QTc: ?416 ? Interpretive Statements SINUS RHYTHM WITH SINUS ARRHYTHMIA No previous ECG available for comparison I reviewed the tracing and have either agreed or edited the findings in this report. Electronically Signed On 10-30-2021 16:14:32 EDT by JUDIT RIVER MD. Procedure Note Judit River MD - 10/30/2021 [facility] Emergency Test Date: 2021-10-04 Pat Name: MALIA LEDESMA Department: ED Room: GT40 Gender: Female Spray Operator: : 1990 Requested By: BERNICE Bernal Order Number: [id number] Reading MD: JUDIT MORTON Measurements Intervals [place] Rate: 78 P: 42 DE: 123 QRS: 11 QRSD: 81 T: 20 QT: 363 QTc: 416 Interpretive Statements SINUS RHYTHM WITH SINUS ARRHYTHMIA No previous ECG available for comparison I reviewed the tracing and have either agreed or edited the findings inthis report. Electronically Signed On 10-30-2021 16:14:32 EDT by LUCAS PORTER. Steve Dos Santos MD CARDIAC ECG ORDERABL ES [facility] EKG documented in this encounter Visit Diagnoses [...] 10/04/2021 documented in this encounter Care Teams Validation Leader Relationship Specialty Start Date End Date Margarito Curry MD [address] [place] [address] PCP - General 09/18/21 documented as of this encounter
--- OUTSIDE RECORDS SUMMARY | 2024-03-24 15:12 | XMS_ITS | Encounter Summary ---
Author Organization [facility] Address [address] [place] [address] Care Team Providers Care Revenue Analyst Name Role Phone Cathy Diaz MD Primary Care Provider [phone] Encounter Details Date Type Department Care Team (Late st Contact Info) Description 04/28/2019 Results Only [facility] [phone] [address] Social History Tobacco Use Types [...] ? MALIA LEDESMA ? Accession #: ? [id number] ? : ? 1990 (Age: 28) ??F ?Collect Date: ? 04/28/2019 ? Location: ? [facility] ? Receive Date: ? 04/29/2019 ? Provider: AGGIE MCCAIN CNM Copy to: TAMICA ELLIOTT FINANCIAL MANAGEMENT ANALYST ? Final Report SPECIMEN ADEQUACY ? Satisfactory [...] types 16,18,31,33,35, 39,45,51,52,56,58, 59,66, and 68 by licensed practical vocational nurse mediated amplification. Comments Document reviewed and electronically signed by: ? System Interface ? Report date: 05/05/2019 By the signature above, the attending physician certifies that he/she has personally conducted a gross and/or microscopic examination of the described specimens and rendered or confirmed the above diagnosis. End of Report [facility] 04/28/2019 04/29/2019 Aggie Mccain [facility] PATHOLOGY ORDERABLES [facility] [address] [place] [address] documented in this encounter Visit Diagnoses Not on filedocumented in this encounter Care Teams Revenue Analyst Relationship Specialty Start Date End Date Cathy Diaz MD [address] [place] [phone] PCP - General 01/05/09 09/17/21 documented as of this encounter
--- OUTSIDE RECORDS SUMMARY | 2024-03-24 15:12 | XMS_ITS | Encounter Summary ---
Author Organization [facility] Address [address] [place] [address] Care Team Providers Care Strategic Partnership Manager Name Role Phone Margarito Curry MD Primary Care Provider [phone] Encounter Details Date Type Department Care Team (Late st Contact Info) Description 12/01/2023 Lab Requisition [facility] Pathology & Laboratory Medicine - [facility] [address] [place], [place] [phone] Outr Resulting Lab, Provider Social History Tobacco [...] Syphilis Serology Negative Negative 12/02/2023 10:18 EDT [facility] Blood VENOUS BLOOD / Unknown 12/01/2023 10:39 EDT 12/01/2023 17:15 EDT Provider Outr Resulting Lab IMMUNOLOGY A ND SEROLOGY ORDERABLES [facility] [address] [place] [address] documented in this encounter Visit Diagnoses Not on filedocumented in this encounter Care Teams Strategic Partnership Manager Relationship Specialty Start Date End Date Margarito Curry MD [facility] [address] [place], [place] [phone] PCP - General 09/18/21 documented as of this encounter
--- OUTSIDE RECORDS SUMMARY | 2024-03-24 15:12 | XMS_ITS | Encounter Summary ---
Author Organization [facility] Address [address] [place] [address] Care Team Providers Care Police Communications Dispatcher Name Role Phone Unavailable Primary Care Provider Unavailabl e Encounter Details Date Type Department Care Team (Latest Contact Info) Description 09/07/2008 21:22 EST Hospital Encounter [facility] - Other [address] [place] [address] Cathy Diaz MD [address] [place] [phone] Discharge Disposition: Home or Self Care Social [...] Result No Chlamydia trachomatis DNA detected by air traffic controller mediated amplification. [facility] Result No Neisseria gonorrhoeae DNA detected by air traffic controller mediated amplification. [facility] 09/26/2008 7:43 EST 09/27/2008 7:43 EST Cathy Diaz MD MICROBIOLOGY - GENER AL ORDERABLES Performing Organization Address [facility] Co de Phone Number [facility] [address] [place] [address] * FERRITIN (09/07/2008 16:45 EST) Ferritin 36 10 - 291 ng/mL [facility] 09/07/2008 16:4 5 EST 09/07/2008 20:28 EST Cathy Diaz MD CHEMISTRY & BLOOD GA S ORDERABLES Performing Organization Address [facility] Co de Phone Number [facility] [address] [place] [address] * TESTS ADDED BY PHONE (09/07/2008 16:45 EST) Tests to be added REJI [facility] Diagnosis Code ANEMIA FLENELLIE [facility] Who Called YASIR FOR DR CATHY [facility] Location Code [facility] 09/07/2008 16:4 5 EST 09/07/2008 20:28 EST Cathy Diaz MD CHEMISTRY & BLOOD GA S ORDERABLES Performing Organization Address [facility] de Phone Number [facility] [address] [place] [address] * (ABNORMAL) HEMAGRAM AND DIFFERENTIAL (09/07/2008 16:45 [...] [facility] Basophils 0.02 K/cmm [facility] Type of Diff: Automated [facility] 09/07/2008 16:4 5 EST 09/07/2008 20:28 EST Cathy Diaz MD PACKAGES & DNA PROBE ORDERABLES Performing Organization Address [facility] de Phone Number [facility] [address] [place] [address] * MONO-TEST (09/07/2008 16:45 EST) [place]-Test Neg NEG [facility] 09/07/2008 16:4 5 EST 09/07/2008 20:28 EST Cathy Diaz MD CHEMISTRY & BLOOD GA S ORDERABLES Performing Organization Address [facility] de Phone Number [facility] [address] [place] [address] * COMPREHENSIVE METABOLIC PANEL (09/07/2008 16:45 EST) [...] GA S ORDERABLES [facility] [address] [place] [address] documented in this encounter Visit Diagnoses Not on filedocumented in this encounter
--- OUTSIDE RECORDS SUMMARY | 2024-03-24 15:12 | XMS_ITS | Encounter Summary ---
Author Organization [facility] Address [address] [place] [address] Care Team Providers Care Insurance Verify Rep Name Role Phone Margarito Curry MD Primary Care Provider [phone] Encounter Details Date Type Department Care Team (Latest Contact Info) Description 10/08/2021 Lab Requisition [facility] Pathology & Laboratory Medicine - [facility] [address] [place] [address] Pedro Whitney [address] [place] [address] Encounter for screening for infections with a [...] gonorrhoeae Result Negative Negative 10/09/2021 15:07 EST [facility] Chlamydia trachomatis Result Negative Negative 10/09/2021 15:07 EST [facility] Urine URINE / Unknown 10/06/2021 1 3:00 EST 10/08/2021 22:09 EST Narrative [facility] - 10/09/2021 15:07 EST A first catch urine specimen is acceptable for detection of Gonorrhea and Chlamydia, but might detect up to 10% fewer infections when compared with vaginal and endocervical swab samples. Pedro Whitney MICROBIOLOGY - GENER AL ORDERABLES Performing Organization Address City/State/[facility] Co de Phone Number [facility] [address] [place] [address] documented in this encounter Visit Diagnoses Diagnosis Encounter for screening for infections with a predominantly sexual mode of transmission Encounter for screening for other infectious and parasitic diseases documented in this encounter Additional Health Concerns Infection Onset Date Last Indicated Resolved Time Influenza 07/22/2022 07/22/2022 08/01/2022 22:1 5 EST documented as of this encounter Care Teams Insurance Verify Rep Relationship Specialty Start Date End Date Margarito Curry MD [address] [place] [address] PCP - General 09/18/21 documented as of this encounter
--- OUTSIDE RECORDS SUMMARY | 2024-03-24 15:12 | XMS_ITS | Encounter Summary ---
Author Organization [facility] Address [address] [place] [address] Care Team Providers Care Workers Compensation Claims Assistant Name Role Phone Cathy Diaz MD Primary Care Provider [phone] Margarito Curry MD Primary Care Provider [phone] Encounter Details Date Type Department Care Team (Late st Contact Info) Description 06/21/2021 Lab Requisition [facility] Pathology & Laboratory Medicine - [address] [address] Outr Resulting Lab, Provider Social History Tobacco [...] Outr Resulting Lab MICROBIOLOGY - GENERAL ORDERABLES [facility] [address] [place] [address] * COVID-19 TESTING (06/20/2021 10:45 EDT) COVID-19 rt-PCR Result Negative Negative 06/22/2021 10:37 EDT [facility] Comment: This test has not [...] performed using the beto SARS-CoV-2 assay ([employer] on the Beto 6800 System Performing Lab Beto [address] [facility] Lab 06/22/2021 10:37 EDT [facility] Swab 06/20/2021 10:4 5 EDT 06/21/2021 16:48 EDT Provider Outr Resulting Lab MICROBIOLOGY - GENERAL ORDERABLES [facility] [address] [place] [address] documented in this encounter Visit Diagnoses Not on filedocumented in this encounter Additional Health Concerns Infection Onset Date Last Indicated Resolved Time Influenza 07/22/2022 07/22/2022 08/01/2022 22:1 5 EST documented as of this encounter Care Teams Workers Compensation Claims Assistant Relationship Specialty Start Date End Date Cathy Diaz MD [address] [place] [phone] PCP - General 01/05/09 09/17/21 Margarito Curry MD [address] [place] [address] PCP - General 09/18/21 documented as of this encounter
--- OUTSIDE RECORDS SUMMARY | 2024-03-24 15:12 | XMS_ITS | Encounter Summary ---
Author Organization [facility] Address [address] [place] [address] Care Team Providers Care Assembler Deck And Hull Name Role Phone Margarito Curry MD Primary Care Provider [phone] Encounter Details Date Type Department Care Team (Late st Contact Info) Description 11/19/2022 Lab Requisition [facility] Pathology & Laboratory Medicine - [facility] [address] [place] [address] Zeny Clemente MD [address] [place] [phone] Encounter for other general examination Social [...] 16, PCR Negative Negative 12/05/2022 15:11 EDT [facility] HPV18/45 RNA (HPV18/45) Negative Negative 12/05/2022 15:11 EDT [facility] Papanicolaou smear specimen (specimen) CERVIX UTERI STRUCTURE / Unknown 11/19/2022 13:10 EDT 12/02/2022 10:05 EDT Zeny Clemente MD MICROBIOLOGY - GENER AL ORDERABLES Performing Organization Address City/[facility] Co de Phone Number [facility] [address] [place] [address] * (ABNORMAL) HUMAN PAPILLOMAVIRUS (HPV) DETECTION-HIGH RISK TYPES (11/19/2022 13:10 EDT) HPV other High Risk types, PCR Positive( A) Negative 12/05/2022 23:41 EDT [facility] Comment:E6 OR E7 mRNA from o ne or more types of HPV types 16,18,31,33,35,39,45,51,52,56,58,59,66, and 68 is detected by clinical safety manager mediated amplification. High and intermediate risk HPV types are associated with most squamous intraepithelial lesions and cervical cancers. Papanicolaou smear specimen (specimen) CERVIX UTERI STRUCTURE / Unknown 11/19/2022 13:10 EDT 12/02/2022 10:05 EDT Zeny Clemente MD MICROBIOLOGY - GENER AL ORDERABLES Performing Organization Address City/[facility] Co de Phone Number [facility] [address] [place] [address] * PAP TEST (11/19/2022 13:10 EDT) Specimens A. Cervix and/or Endocervix , ThinPrep Imaging System with Manual Evaluation 12/05/2022 23:41 [facility] Specimen Adequacy Satisfactory for Evaluation - transformation zone component present 12/05/2022 23:41 [facility] General Categorization Epithelial Cell Abnormality 12/05/2022 23:41 [facility] Descriptive Diagnosis Squamous Cell Abnormality - Low grade squamous intraepithelial lesion (LSIL). 12/05/2022 23:41 [facility] Educational Comments [facility] recommends following the ASCCP's management guidelines which may be found at www.asccp.org 12/05/2022 23:41 [facility] Attestation By the signature below, the attending physician certifies that they have personally conducted a gross and/or microscopic examination of the described specimens and rendered or confirmed the above diagnosis. 12/05/2022 23:41 [facility] at 2341 Clinical History See below 12/06/19 23:41 [facility] HPV The result for the Human Papillomavirus (HPV) Detection-High Risk Types is Positive . E6 OR E7 mRNA from one or more types of HPV types 16,18,31,33,35,39 ,45,51,52,56,58,5 9,66, and 68 is detected by clinical safety manager mediated amplification. High and intermediate risk HPV types are associated with most squamous intraepithelial lesions and cervical cancers. Testing was performed on specimen [id number] and was resulted on 12/03/2022 1540 EDT by LENA, LAB INSTRUMENT RESULTS IN 12/05/2022 23:41 [facility] Genotyping 16 & 18/45 The results for the HPV Genotypes 16 and 18/45 are Negative for the HPV16 RNA and Negative for the HPV18/45 RNA (HPV18/45). Testing was performed on specimen [id number] and was resulted on 12/05/2022 1511 EDT by LENA, LAB INSTRUMENT RESULTS IN 12/05/2022 23:41 [facility] Performing Lab [facility] 12/05/2022 23:41 EDT [facility] Scanned Images 12/05/2022 23:41 EDT [facility] Papanicolaou smear specimen (specimen) CERVIX UTERI STRUCTURE / Unknown 11/19/2022 13:10 EDT 11/22/2022 8:18 EDT Zeny Clemente MD PATHOLOGY ORDERABLES Performing Organization Address City/[facility]/[place] Co de Phone Number [facility] [address] [place] [address] * CHLAMYDIA/N. GONORRHOEAE AMPLIFIED RNA, THINPREP (11/19/2022 13:10 EDT) Neisseria gonorrhoeae Result Negative Negative 11/21/2022 14:36 EDT [facility] Chlamydia trachomatis Result Negative Negative 11/21/2022 14:36 EDT [facility] Papanicolaou smear specimen (specimen) CERVIX UTERI STRUCTURE / Unknown 11/19/2022 13:10 EDT 11/21/2022 8:34 EDT Zeny Clemente MD MICROBIOLOGY - GENER AL ORDERABLES Performing Organization Address [facility] Co de Phone Number [facility] [address] [place] [address] documented in this encounter Visit Diagnoses Diagnosis Encounter for other general examination documented in this encounter Care Teams Assembler Deck And Hull Relationship Specialty Start Date End Date Margarito Curry [place] [place] [address] PCP - General 09/18/21 documented as of this encounter
--- OUTSIDE RECORDS SUMMARY | 2024-03-24 15:12 | XMS_ITS | Encounter Summary ---
Author Organization [facility] Address [address] [place] [address] Care Team Providers Care Hydraulic Rubbish Compactor Mechanic Name Role Phone Margarito Curry MD Primary Care Provider [phone] Encounter Details Date Type Department Care Team (Late st Contact Info) Description 09/13/2022 14:45 EST Phlebotomy Only [facility] ED Center 2 Phlebotomy [address] [place], [place] [id number] Head Turning Machine Operator, Acc Phlebotomy Other specified general medical examination [...] Quantiferon Interpretation Negative Negative 09/16/2022 13:28 EST [facility] Comment:No interferon-gamma response to M. tuberculosis antigens was detected. ??Infection with M. tuberculosis is unlikely. A single negative result does not exclude infection with M. tuberculosis. ??In patients at high risk for M. tuberculosis infection, a second test should be considered. TB1 Ag minus Nil 0.00 IU/ml 09/16/19 13:28 EST [facility] TB2 Ag minus Nil 0.00 IU/mL 09/16/19 13:28 EST [facility] Blood VENOUS BLOOD / Unknown Venipuncture / Unknown 09/13/2022 14:46 EST 09/16/2022 13:20 EST Narrative [facility] - 09/16/2022 13:28 EST Results were obtained with the [employer] QuantiFERON-TB Gold Plus CLIA. New platform in use 04/25/2021 Lawson Castaneda DO IMMUNOLOGY AND SEROL OGY ORDERABLES Performing Organization Address City/[facility] Co de Phone Number [facility] [address] [place] [address] * QUANTIFERON MITOGEN (PERFORMABLE) (09/13/2022 14:46 EST) Blood VENOUS BLOOD / Unknown Venipuncture / Unknown 09/13/2022 14:46 EST 09/13/2022 14:54 EST Lawson Castaneda DO IMMUNOLOGY AND SEROL OGY ORDERABLES Performing Organization Address City/[facility]/ZIP Co de Phone Number [facility] [address] [place] [address] * QUANTIFERON TB2 (PERFORMABLE) (09/13/2022 14:46 EST) Blood VENOUS BLOOD / Unknown Venipuncture / Unknown 09/13/2022 14:46 EST 09/13/2022 14:54 EST Lawson Greyson Leonel WOOD IMMUNOLOGY AND SEROL OGY ORDERABLES Performing Organization Address [facility] Co de Phone Number [facility] [address] [place] [address] * QUANTIFERON TB1 (PERFORMABLE) (09/13/2022 14:46 EST) Blood VENOUS BLOOD / Unknown Venipuncture / Unknown 09/13/2022 14:46 EST 09/13/2022 14:54 EST Lawson Castaneda DO IMMUNOLOGY AND SEROL OGY ORDERABLES Performing Organization Address [facility] de Phone Number [facility] [address] [place] [address] * QUANTIFERON NIL (PERFORMABLE) (09/13/2022 14:46 EST) Blood VENOUS BLOOD / Unknown Venipuncture / Unknown 09/13/2022 14:46 EST 09/13/2022 14:54 EST Lawson Castaneda DO IMMUNOLOGY AND SEROL OGY ORDERABLES Performing Organization Address [facility] Co de Phone Number [facility] [address] [place] [address] documented in this encounter Visit Diagnoses Diagnosis Other specified general medical examination- Primary documented in this encounter Care Teams Hydraulic Rubbish Compactor Mechanic Relationship Specialty Start Date End Date Margarito Curry MD [facility] [place] [place] [address] PCP - General 09/18/21 documented as of this encounter
--- OUTSIDE RECORDS SUMMARY | 2024-03-24 15:12 | XMS_ITS | Encounter Summary ---
Author Organization [facility] Address [address] [place] [address] Care Team Providers Care Technical Manager Name Role Phone Cathy Diaz MD Primary Care Provider [phone] Encounter Details Date Type Department Care Team (Late st Contact Info) Description 05/11/2018 Results Only [facility] [phone] Leigh Ann Bauer[address] [id number] Social History Tobacco Use Types Packs/Day Years [...] ? MALIA LEDESMA ? Accession #: ? [id number] ? : ? 1990 (Age: 27) ??F ?Collect Date: ? 05/11/2018 ? Location: ? [facility] ? Receive Date: ? 05/12/2018 ? Provider: LEIGH ANN BAUER CNM Copy to: BRITTNEY SCHNEIDER SUPERVISOR COVERING AND LINING ? Final Report SPECIMEN ADEQUACY ? Satisfactory for Evaluation - transformation zone component present GENERAL CATEGORIZATION ? Epithelial Cell Abnormality INTERPRETATION ? Squamous Cell Abnormality - Atypical squamous cells, undetermined significance (ASC-US). Fungal organisms present morphologically consistent with Judi species. EDUCATIONAL NOTES/RECOMMENDATI ONS ? [facility] recommends following ASCCP's 2012 Updated Consensus Guidelines for the Management of Abnormal Cervical Cancer Screening Tests and Cancer Precursors (JLGTD, 2013; 17(5):S1-S27). ??Consensus guidelines are available online at www.asccp.org. Menstrual/Pregnanc y Status: ?? Other: Previous NIL Pap(s) Specimen/Source: ??Pap Test, Endocervix, ThinPrep Imaging System with manual evaluation Document reviewed and electronically signed by: ? ADRI DELA CRUZ MD ? Report ??Date: 05/18/2018 14:32 HPV with Pap Test ? Date Ordered: ? 05/18/2018 ? Status: ?? Signed Out ?Date Complete: ? 05/19/2018 ? By: ??System Interface ? Date Reported: ? 05/19/2018 ? Interpretation RESULT: POSITIVE FOR HIGH OR INTERMEDIATE RISK HPV. E6 OR E7 mRNA from one or more types of HPV types 16,18,31, 33,35,39,45,51,52, 56,58,59,66, and 68 is detected by mine production engineer mediated amplification. High and intermediate risk HPV [...] confirmed the above diagnosis. End of Report [facility] 05/11/2018 05/12/2018 Leigh Ann Bauer [facility] PATHOLOGY ORDERABLES [facility] [address] [place] [address] documented in this encounter Visit Diagnoses Not on filedocumented in this encounter Care Teams Technical Manager Relationship Specialty Start Date End Date Cathy Diaz MD [address] [place] [phone] PCP - General 01/05/09 09/17/21 documented as of this encounter
--- OUTSIDE RECORDS SUMMARY | 2024-03-24 15:12 | XMS_ITS | Encounter Summary ---
Author Organization [facility] Address [address] [place] [address] Care Team Providers Care Informatics Pharmacist Name Role Phone Margarito Curry MD Primary Care Provider [phone] Encounter Details Date Type Department Care Team (Late st Contact Info) Description 11/03/2021 Lab Requisition [facility] Pathology & Laboratory Medicine - [facility] [address] [place], [place] [id number] Outr Resulting Lab, Provider Social History Tobacco [...] Surface Ag Negative Negative 11/05/2021 10:07 EDT [facility] Blood VENOUS BLOOD / Unknown 11/02/2021 12:50 EDT 11/03/2021 21:52 EDT Provider Outr Resulting Lab CHEMISTRY & BLOOD GAS ORDERABLES Performing Organization Address City/[facility]/ZIP Co de Phone Number [facility] [address] [place] [address] * HEPATITIS C AB W REFLEX TO HCV RNA BY PCR (11/02/2021 12:50 EDT) Hep C Antibody Negative Negative 11/05/2021 11:09 EDT [facility] Blood VENOUS BLOOD / Unknown 11/02/2021 12:50 EDT 11/03/2021 21:52 EDT Provider Outr Resulting Lab CHEMISTRY & BLOOD GAS ORDERABLES Performing Organization Address City/[facility] Co de Phone Number [facility] [address] [place] [address] documented in this encounter Visit Diagnoses Not on filedocumented in this encounter Additional Health Concerns Infection Onset Date Last Indicated Resolved Time Influenza 07/22/2022 07/22/2022 08/01/2022 22:1 5 EST documented as of this encounter Care Teams Informatics Pharmacist Relationship Specialty Start Date End Date Margarito Curry MD [place] [place] [address] PCP - General 09/18/21 documented as of this encounter
--- OUTSIDE RECORDS SUMMARY | 2024-03-24 15:12 | XMS_ITS | Encounter Summary ---
Author Organization [facility] Address [address] [place] [address] Care Team Providers Care Yeast Maker Name Role Phone Margarito Curry MD Primary Care Provider [phone] Encounter Details Date Type Department Care Team (Late st Contact Info) Description 07/22/[address] [facility] Pathology & Laboratory Medicine - [facility] [address] [place], [place] [address] Outr Resulting Lab, Provider Social History Tobacco [...] Result (FLARES) Positive(A) Negative 07/23/2022 1:36 EST [facility] FLU B RNA Result (FLBRES) Negative Negative 07/23/2022 1:36 EST [facility] RSV RNA Result (RSVRES) Negative Negative 07/23/2022 1:36 EST [facility] Swab ENTIRE NASOPHARYNX / Unknown 07/22/2022 12:16 EST 07/22/2022 22:23 EST Provider Outr Resulting Lab MICROBIOLOGY - GENERAL ORDERABLES Performing Organization Address City/State/[facility] Co de Phone Number [facility] [address] [place] [address] documented in this encounter Visit Diagnoses Not on filedocumented in this encounter Additional Health Concerns Infection Onset Date Last Indicated Resolved Time Influenza 07/22/2022 07/22/2022 08/01/2022 22:1 5 EST documented as of this encounter Care Teams Yeast Maker Relationship Specialty Start Date End Date Margarito Curry [place] [address] PCP - General 09/18/21 documented as of this encounter
--- OUTSIDE RECORDS SUMMARY | 2024-03-24 15:12 | XMS_ITS | Encounter Summary ---
Author Organization [facility] Address [address] [place] [address] Care Team Providers Care Home Health Travel Pt Name Role Phone Cathy Diaz MD Primary Care Provider [phone] Margarito Curry MD Primary Care Provider [phone] Encounter Details Date Type Department Care Team (Late st Contact Info) Description 05/17/[address] [facility] Pathology & Laboratory Medicine - [address] [phone] Outr Resulting Lab, Provider Social History Tobacco [...] Surface Ag Negative Negative 05/18/2021 10:10 EDT [facility] Blood VENOUS BLOOD / Unknown 05/16/2021 11:30 EDT 05/17/2021 16:14 EDT Provider Outr Resulting Lab CHEMISTRY & BLOOD GAS ORDERABLES [facility] [address] [place] [address] documented in this encounter Visit Diagnoses Not on filedocumented in this encounter Additional Health Concerns Infection Onset Date Last Indicated Resolved Time Influenza 07/22/2022 07/22/2022 08/01/2022 22:1 5 EST documented as of this encounter Care Teams Home Health Travel Pt Relationship Specialty Start Date End Date Cathy Diaz MD [address] [place] [phone] PCP - General 01/05/09 09/17/21 Margarito Curry MD [address] [place] [address] [place] [address] PCP - General 09/18/21 documented as of this encounter
--- OUTSIDE RECORDS SUMMARY | 2024-03-24 15:12 | XMS_ITS | Encounter Summary ---
Author Organization [facility] Address [address] [place] [address] Care Team Providers Care Party Host/Hostess Name Role Phone Cathy Diaz MD Primary Care Provider [phone] Margarito Curry MD Primary Care Provider [phone] Encounter Details Date Type Department Care Team (Late st Contact Info) Description 04/25/2020 Lab Requisition [facility] Pathology & Laboratory Medicine - [address] [phone] Outr Resulting Lab, Provider Social History Tobacco [...] Lyme Ab Negative Negative 04/26/2020 10:52 EDT [facility] Comment:New 3rd generation a ssay in use 01/26/2020 Blood VENOUS BLOOD / Unknown 04/23/2020 12:05 EDT 04/25/2020 16:40 EDT Provider Outr Resulting Lab IMMUNOLOGY A ND SEROLOGY ORDERABLES [facility] [address] [place] [address] documented in this encounter Visit Diagnoses Not on filedocumented in this encounter Additional Health Concerns Infection Onset Date Last Indicated Resolved Time Influenza 07/22/2022 07/22/2022 08/01/2022 22:1 5 EST documented as of this encounter Care Teams Party Host/Hostess Relationship Specialty Start Date End Date Cathy Diaz MD [address] [place] [phone] PCP - General 01/05/09 09/17/21 Margarito Curry MD [address] [place] [address] [place] [address] PCP - General 09/18/21 documented as of this encounter
--- OUTSIDE RECORDS SUMMARY | 2024-03-24 15:12 | XMS_ITS | Encounter Summary ---
Author Organization [facility] Address [address] [place] [address] Care Team Providers Care Tree Climber Name Role Phone Margarito Curry MD Primary Care Provider [phone] Encounter Details Date Type Department Care Team (Late st Contact Info) Description 11/01/2023 Lab Requisition [facility] Pathology & Laboratory Medicine - [facility] [address] [place], [place] [id number] Outr Resulting Lab, Provider Social History Tobacco [...] Syphilis Serology Negative Negative 11/03/2023 11:17 EDT [facility] Blood VENOUS BLOOD / Unknown 10/31/2023 16:55 EDT 11/01/2023 21:34 EDT Provider Outr Resulting Lab IMMUNOLOGY A ND SEROLOGY ORDERABLES Performing Organization Address City/[facility]/ZIP Co de Phone Number [facility] [address] [place] [address] * HEPATITIS C AB W REFLEX TO HCV RNA BY PCR (10/31/2023 16:55 EDT) Hep C Antibody Negative Negative 11/03/2023 10:39 EDT [facility] Blood VENOUS BLOOD / Unknown 10/31/2023 16:55 EDT 11/01/2023 21:34 EDT Provider Outr Resulting Lab CHEMISTRY & BLOOD GAS ORDERABLES Performing Organization Address City/[facility] Co de Phone Number [facility] [address] [place], [place] [address] documented in this encounter Visit Diagnoses Not on filedocumented in this encounter Care Teams Tree Climber Relationship Specialty Start Date End Date Margarito Curry MD [address] [place] [address] PCP - General 09/18/21 documented as of this encounter
--- OUTSIDE RECORDS SUMMARY | 2024-03-24 15:12 | XMS_ITS | Encounter Summary ---
Author Organization [facility] Address [address] [place] [address] Care Team Providers Care Senior Shipping Clerk Name Role Phone Margarito Curry MD Primary Care Provider [phone] Encounter Details Date Type Department Care Team (Late st Contact Info) Description 12/01/2023 Lab Requisition [facility] Pathology & Laboratory Medicine - [facility] [address] [place], [place] [phone] Outr Resulting Lab, Provider Social History Tobacco [...] 4th Generation Negative Negative 12/01/2023 20:11 EDT [facility] Comment:If acute HIV-1 infec tion is suspected in a high risk patient, submit plasma specimen for HIV-1 RNA quantitation test. Blood VENOUS BLOOD / Unknown 12/01/2023 10:39 EDT 12/01/2023 17:16 EDT Narrative [facility] - 12/01/2023 20:11 EDT Fourth Generation assay performed on the Siemens Awesome Mapsaur XPT. Provider Outr Resulting Lab IMMUNOLOGY A ND SEROLOGY ORDERABLES [facility] [address] [place], [place] [phone] documented in this encounter Visit Diagnoses Not on filedocumented in this encounter Care Teams Senior Shipping Clerk Relationship Specialty Start Date End Date Margarito Curry MD [address] [place] [address] PCP - General 09/18/21 documented as of this encounter
--- OUTSIDE RECORDS SUMMARY | 2024-03-24 15:12 | XMS_ITS | Encounter Summary ---
Author Organization [facility] Address [address] [place] [address] Care Team Providers Care Paper Bag Maker Name Role Phone Margarito Curry MD Primary Care Provider [phone] Encounter Details Date Type Department Care Team (Late st Contact Info) Description 11/01/[address] [facility] Pathology & Laboratory Medicine - [facility] [address] [place], [place] [phone] Outr Resulting Lab, Provider Social History Tobacco [...] 4th Generation Negative Negative 11/03/2023 10:42 EDT [facility] Comment:If acute HIV-1 infec tion is suspected in a high risk patient, submit plasma specimen for HIV-1 RNA quantitation test. Blood VENOUS BLOOD / Unknown 10/31/2023 16:55 EDT 11/01/2023 21:34 EDT Narrative [facility] - 11/03/2023 10:42 EDT Fourth Generation assay performed on the Siemens Baitianshiaur XPT. Provider Outr Resulting Lab IMMUNOLOGY A ND SEROLOGY ORDERABLES [facility] [address] [place], [place] [phone] documented in this encounter Visit Diagnoses Not on filedocumented in this encounter Care Teams Paper Bag Maker Relationship Specialty Start Date End Date Margarito Curry MD [address] [place] [address] PCP - General 09/18/21 documented as of this encounter
--- OUTSIDE RECORDS SUMMARY | 2024-03-24 15:12 | XMS_ITS | Encounter Summary ---
Author Organization [facility] Address [address] [place] [address] Care Team Providers Care Nuclear Monitoring Technician Name Role Phone Cathy Diaz MD Primary Care Provider [phone] Encounter Details Date Type Department Care Team (Late st Contact Info) Description 11/15/2009 Results Only [facility] Laboratory Services - [facility] [address] [place], [place] [address] Cathy Diaz MD [address] [place] [phone] Social History Tobacco Use Types Packs/Day Years [...] Result No Chlamydia trachomatis DNA detected by model maker plaster mediated amplification. [facility] GC Result No Neisseria gonorrhoeae DNA detected by model maker plaster mediated amplification. [facility] 11/15/2009 13:2 7 EDT 11/16/2009 13:27 EDT Cathy Diaz MD MICROBIOLOGY - GENER AL ORDERABLES [facility] [address] [place] [id number] * CYTOPATHOLOGY (11/15/2009 0:00 EDT) Pathology Report: CYTOPATHOLOGY REPORT ? Reports generated via electronic interface contain original data; ? however they are lacking the format of the original report. ? Caution should be taken when reading/interpreti ng unformatted reports. ? Name: ? MALIA SCHAEFER ? Accession #: ? [id number] ? : ? 1990 (Age: 19) ??F [...] MD PATHOLOGY ORDERABLES [facility] [address] [place] [address] documented in this encounter Visit Diagnoses Not on filedocumented in this encounter Care Teams Nuclear Monitoring Technician Relationship Specialty Start Date End Date Cathy Diaz MD [address] [place] [phone] PCP - General 01/05/09 09/17/21 documented as of this encounter
--- OUTSIDE RECORDS SUMMARY | 2024-03-24 15:12 | XMS_ITS | Encounter Summary ---
Author Organization [facility] Address [address] [place] [address] Care Team Providers Care Satellite Instruction Facilitator Name Role Phone Cathy Diaz MD Primary Care Provider [phone] Margarito Curry MD Primary Care Provider [phone] Encounter Details Date Type Department Care Team (Late st Contact Info) Description 05/17/2021 Lab Requisition [facility] Pathology & Laboratory Medicine - [address] [id number] Outr Resulting Lab, Provider Social History Tobacco [...] 4th Generation Negative Negative 05/18/2021 10:36 EDT [facility] Comment: If acute HIV-1 infection is suspected in a high risk ??patient, submit plasma specimen for HIV-1 RNA quantitation test. Fourth Generation assay performed on the Siemens Centaur. Blood VENOUS BLOOD / Unknown 05/16/2021 11:30 EDT 05/17/2021 16:13 EDT Provider Outr Resulting Lab IMMUNOLOGY A ND SEROLOGY ORDERABLES [facility] [address] [place] [address] documented in this encounter Visit Diagnoses Not on filedocumented in this encounter Additional Health Concerns Infection Onset Date Last Indicated Resolved Time Influenza 07/22/2022 07/22/2022 08/01/2022 22:1 5 EST documented as of this encounter Care Teams Satellite Instruction Facilitator Relationship Specialty Start Date End Date Cathy Diaz MD [address] [place] [phone] PCP - General 01/05/09 09/17/21 Margarito Curry MD [address] [place] [address] [place] [address] PCP - General 09/18/21 documented as of this encounter
--- OUTSIDE RECORDS SUMMARY | 2024-03-24 15:12 | XMS_ITS | Encounter Summary ---
Author Organization [facility] Address [address] [place] [address] Care Team Providers Care Garment Looper Name Role Phone Cathy Diaz MD Primary Care Provider [phone] Encounter Details Date Type Department Care Team (Late st Contact Info) Description 08/20/[address] [facility] [address] [place] [address] Cathy Diaz MD [address] [place] [phone] Social History Tobacco Use Types Packs/Day [...] BLOOD GA S ORDERABLES Performing Organization Address [facility] Co de Phone Number [facility] [address] [place] [address] * (ABNORMAL) GLUCOSE, SERUM (08/20/2007 14:55 EST) Pathologist [facility] Glucose, Serum 66(L) 70 - 100 mg/dl [facility] 08/20/2007 14:5 5 EST 08/20/2007 20:09 EST Cathy Diaz MD CHEMISTRY & BLOOD GA S ORDERABLES Performing Organization Address [facility] de Phone Number [facility] [address] [place] [address] * FERRITIN (08/20/2007 14:55 EST) Pathologist [facility] Ferritin 16 10 - 291 ng/mL [facility] 08/20/2007 14:5 5 EST 08/20/2007 20:09 EST Cathy Diaz MD CHEMISTRY & BLOOD GA S ORDERABLES Performing Organization Address [facility] Co de Phone Number [facility] [address] [place] [address] * (ABNORMAL) HEMAGRAM (08/20/2007 14:55 EST) WBC [...] & PF4 ORD ERABLES Performing Organization Address City/[facility] Co de Phone Number [facility] [address] [place] [address] * TESTS ADDED BY PHONE (08/20/2007 14:55 EST) Tests to be added [facility] Diagnosis Code ANEMIA FLETC [facility] Who Called [facility] FOR DR[facility] Location Code [facility] 08/20/2007 14:5 5 EST 08/20/2007 20:09 EST Cathy Diaz MD CHEMISTRY & BLOOD GA S ORDERABLES Performing Organization Address [facility] de Phone Number [facility] [address] [place] [address] documented in this encounter Visit Diagnoses Not on filedocumented in this encounter Care Teams Garment Looper Relationship Specialty Start Date End Date Cathy Diaz MD [address] [place] [phone] PCP - General 01/05/09 09/17/21 documented as of this encounter
--- OUTSIDE RECORDS SUMMARY | 2024-03-24 15:12 | XMS_ITS | Encounter Summary ---
Author Organization [facility] Address [address] [place] [address] Care Team Providers Care Diesel Fleet Mechanic Name Role Phone Margarito Curry MD Primary Care Provider [phone] Encounter Details Date Type Department Care Team (Late st Contact Info) Description 02/05/2022 Lab Requisition [facility] Pathology & Laboratory Medicine - [facility] [address] [place] [address] Zeny Clemente MD [address] [place] [phone] Encounter for other general examination Social [...] management options, if applicable. 02/06/2022 11:15 T [facility] Final Diagnosis A. CERVIX, BIOPSY: [...] FRANKLIN ANDERSON(ASCP) 02/05/2022 19:37 02/06/2022 11:15 T [facility] Performing Lab [facility] 11:15 [facility] Scanned Images 02/06/2022 11:15 [facility] Tissue ENTIRE WALL OF CERVIX / Unknown 02/05/2022 11:22 EDT 02/05/2022 17:05 EDT Zeny Clemente MD PATHOLOGY ORDERABLES [facility] [address] [place] [address] documented in this encounter Visit Diagnoses Diagnosis Encounter for other general examination documented in this encounter Additional Health Concerns Infection Onset Date Last Indicated Resolved Time Influenza 07/22/2022 07/22/2022 08/01/2022 22:1 5 EST documented as of this encounter Care Teams Diesel Fleet Mechanic Relationship Specialty Start Date End Date Margarito Curry MD [address] [facility] [address] PCP - General 09/18/21 documented as of this encounter
--- OUTSIDE RECORDS SUMMARY | 2024-03-24 15:12 | XMS_ITS | Encounter Summary ---
Author Organization [facility] Address [address] [place] [address] Care Team Providers Care Customer Account Technician Name Role Phone Cathy Diaz MD Primary Care Provider [phone] Encounter Details Date Type Department Care Team (Late st Contact Info) Description 03/14/2016 Results Only [facility] [phone] Tod Hough Social History Tobacco Use Types [...] ? MALIA LEDESMA ? Accession #: ? [id number] : ? 1990 (Age: 25) ??F ?Collect [...] intraepithelial lesion (LSIL). EDUCATIONAL NOTES/RECOMMENDATI ONS ? [facility] recommends following ASCCP's 2012 Updated Consensus Guidelines for the Management of Abnormal Cervical Cancer Screening Tests and Cancer Precursors (JLGTD, 2013; 17(5):S1-S27). ??Consensus guidelines are available online at www.asccp.org. ? Document reviewed and electronically signed by: ? JOSE TAN MD ? Report Date: ??03/27/2016 15:59 End of Report [facility] 03/14/2016 03/19/2016 Tod Hough PATHOLOGY ORDERABLES [facility] [address] [place] [address] documented in this encounter Visit Diagnoses Not on filedocumented in this encounter Care Teams Customer Account Technician Relationship Specialty Start Date End Date Cathy Diaz MD [address] [place] [phone] PCP - General 01/05/09 09/17/21 documented as of this encounter
--- OUTSIDE RECORDS SUMMARY | 2024-03-24 15:12 | XMS_ITS | Encounter Summary ---
Author Organization [facility] Address [address] [place] [address] Care Team Providers Care Ic Designer Standard Cells Name Role Phone Cathy Diaz MD Primary Care Provider [phone] Margarito Curry MD Primary Care Provider [phone] Encounter Details Date Type Department Care Team (Late st Contact Info) Description 11/01/2020 Lab Requisition [facility] Pathology & Laboratory Medicine - [address] [address] Janel Bernal, CASH APPLICATIONS REPRESENTATIVE [address] [place] [phone] Encounter for other general examination [...] System with Manual Evaluation 11/09/2020 11:27 EDT [facility] Specimen Adequacy Satisfactory for Evaluation - transformation zone component present 11/09/2020 11:27 EDT [facility] General Categorization Negative for intraepithelial lesion or malignancy 11/09/2020 11:27 EDT [facility] Attestation . 11/09/2020 11:27 EDT [facility] at [address]7 Clinical History See below 11/10/19 11:27 EDT [facility] Performing Lab [facility] 11/09/2020 11:27 EDT [facility] Scanned Images 11/09/2020 11:27 EDT [facility] Papanicolaou smear specimen (specimen) CERVIX UTERI STRUCTURE / Unknown 11/01/2020 8:40 EDT 11/02/2020 11:02 EDT Janel A Gabe CASH APPLICATIONS REPRESENTATIVE PATHOLOGY ORDERAB LES [facility] [address] [place] [address] * (ABNORMAL) CHLAMYDIA/N. GONORRHOEAE AMPLIFIED RNA, THINPREP (11/01/2020 8:40 EDT) Neisseria gonorrhoeae Result Negative Negative 11/02/2020 13:53 EDT [facility] Chlamydia trachomatis Result Positive(A) Negative 11/02/2020 13:53 EDT [facility] Papanicolaou smear specimen (specimen) CERVIX UTERI STRUCTURE / Unknown 11/01/2020 8:40 EDT 11/02/2020 7:57 EDT Janel A Gabe CASH APPLICATIONS REPRESENTATIVE MICROBIOLOGY - GE NERAL ORDERABLES [facility] [address] [place] [address] documented in this encounter Visit Diagnoses Diagnosis Encounter for other general examination documented in this encounter Additional Health Concerns Infection Onset Date Last Indicated Resolved Time Influenza 07/22/2022 07/22/2022 08/01/2022 22:1 5 EST documented as of this encounter Care Teams Ic Designer Standard Cells Relationship Specialty Start Date End Date Cathy Diaz MD [address] [place] [phone] PCP - General 01/05/09 09/17/21 Margarito Curry MD [address] [place] [phone] PCP - General 09/18/21 documented as of this encounter
--- OUTSIDE RECORDS SUMMARY | 2024-03-24 15:12 | XMS_ITS | Encounter Summary ---
Author Organization [facility] Address [address] [place] [address] Care Team Providers Care Evs Manager Name Role Phone Unavailable Primary Care Provider Unavailabl e Encounter Details Date Type Department Care Team (Latest Contact Info) Description 08/20/2007 9:05 EST - 08/20/2007 11:59 EST Hospital Encounter [facility] - Other [address] [place] [address] Cathy Diaz MD [address] [place] [phone] Discharge Disposition: Home or Self Care [...]
--- OUTSIDE RECORDS SUMMARY | 2024-03-24 15:12 | XMS_ITS | Encounter Summary ---
Author Organization [facility] Address [address] [place] [address] Care Team Providers Care Relief Charge Nurse Name Role Phone Margarito Curry MD Primary Care Provider [phone] Encounter Details Date Type Department Care Team (Late st Contact Info) Description 11/03/2021 Lab Requisition [facility] Pathology & Laboratory Medicine - [facility] [address] [place], [place] [phone] Outr Resulting Lab, Provider Social History Tobacco [...] 4th Generation Negative Negative 11/05/2021 9:40 EDT [facility] Comment:If acute HIV-1 infec tion is suspected in a high risk patient, submit plasma specimen for HIV-1 RNA quantitation test. Blood VENOUS BLOOD / Unknown 11/02/2021 12:50 EDT 11/03/2021 21:52 EDT Narrative [facility] - 11/05/2021 9:40 EDT Fourth Generation assay performed on the Siemens Centaur XPT. Provider Outr Resulting Lab IMMUNOLOGY A ND SEROLOGY ORDERABLES [facility] [address] [place] [address] documented in this encounter Visit Diagnoses Not on filedocumented in this encounter Additional Health Concerns Infection Onset Date Last Indicated Resolved Time Influenza 07/22/2022 07/22/2022 08/01/2022 22:1 5 EST documented as of this encounter Care Teams Relief Charge Nurse Relationship Specialty Start Date End Date Margarito Curry MD [facility] [place] [address] PCP - General 09/18/21 documented as of this encounter
--- OUTSIDE RECORDS SUMMARY | 2024-03-24 15:12 | XMS_ITS | Encounter Summary ---
Author Organization [facility] Address [address] [place] [address] Care Team Providers Care Mucker Operator Name Role Phone Margarito Curry MD Primary Care Provider [phone] Encounter Details Date Type Department Care Team (Late st Contact Info) Description 12/01/2023 Lab Requisition [facility] Pathology & Laboratory Medicine - [facility] [address] [place], [place] [phone] Outr Resulting Lab, Provider Social History Tobacco [...] gonorrhoeae Result Negative Negative 12/02/2023 13:35 EDT [facility] Chlamydia trachomatis Result Negative Negative 12/02/2023 13:35 EDT [facility] Pap Test CERVIX UTERI STRUCTURE / Unknown 12/01/2023 10:25 EDT 12/02/2023 9:32 EDT Provider Outr Resulting Lab MICROBIOLOGY - GENERAL ORDERABLES [facility] [address] [place] [address] documented in this encounter Visit Diagnoses Not on filedocumented in this encounter Care Teams Mucker Operator Relationship Specialty Start Date End Date Margarito Curry MD [facility] [place] [place] [address] PCP - General 09/18/21 documented as of this encounter
--- OUTSIDE RECORDS SUMMARY | 2024-03-24 15:12 | XMS_ITS | Encounter Summary ---
Author Organization [facility] Address [address] [place] [address] Care Team Providers Care Operating Room Orderly Name Role Phone Margarito Curry MD Primary Care Provider [phone] Encounter Details Date Type Department Care Team (Late st Contact Info) Description 05/01/2023 Lab Requisition [facility] Pathology & Laboratory Medicine - [facility] [address] [place], [place] [phone] Outr Resulting Lab, Provider Social History Tobacco [...] gonorrhoeae Result Negative Negative 05/02/2023 13:23 EDT [facility] Chlamydia trachomatis Result Negative Negative 05/02/2023 13:23 EDT [facility] Swab VAGINAL STRUCTURE / Unknown 04/30/2023 16:15 EDT 05/01/2023 18:08 EDT Provider Outr Resulting Lab MICROBIOLOGY - GENERAL ORDERABLES [facility] [address] [place] [address] documented in this encounter Visit Diagnoses Not on filedocumented in this encounter Care Teams Operating Room Orderly Relationship Specialty Start Date End Date Margarito Curry MD [address] [place] [address] PCP - General 09/18/21 documented as of this encounter
--- OUTSIDE RECORDS SUMMARY | 2024-03-24 15:12 | XMS_ITS | Encounter Summary ---
Author Organization [facility] Address [address] [place] [address] Care Team Providers Care Physical Security Manager Name Role Phone Margarito Curry MD Primary Care Provider Encounter Details Date Type Department Care Team (Late st Contact Info) Description 12/01/2023 Lab Requisition [facility] Pathology & Laboratory Medicine - [facility] [address] [place], [place] [phone] Outr Resulting Lab, Provider Social History Tobacco [...] Surface Ag Negative Negative 12/01/19 20:15 EDT [facility] Hep B Surface Ab, Quantitative <3.1 See Note mIU/mL 12/01/2023 20:15 EDT [facility] Comment: Reference Range for Hep B Surface Ab, Quant: Positive: >= 10.0 mIU/mL Negative: ??< 10.0 mIU/mL Patient is presumed to not be immune to infection with Hepatitis B Virus. Hep B Surface Ab, Qualitative Negative See Note 12/01/2023 20:15 EDT [facility] Comment: Reference Range for Hep B Surface Ab, Qual: Unvaccinated: ??Negative Vaccinated: ??Positive Hepatitis B Core Ab, Total Negative Negative 12/01/2023 20:15 EDT [facility] Hep C Antibody Negative Negative 12/01/2023 20:15 EDT [facility] Blood VENOUS BLOOD / Unknown 12/01/2023 10:39 EDT 12/01/2023 17:16 EDT Provider Outr Resulting Lab CHEMISTRY & BLOOD GAS ORDERABLES Performing Organization Address City/State/[facility] Co de Phone Number [facility] [address] [place], [place] [address] documented in this encounter Visit Diagnoses Not on filedocumented in this encounter Care Teams Physical Security Manager Relationship Specialty Start Date End Date Margarito Curry MD [address] [place] [address] PCP - General 09/18/21 documented as of this encounter
--- OUTSIDE RECORDS SUMMARY | 2024-03-24 15:13 | XMS_ITS | Encounter Summary ---
Author Organization [facility] Address [address] [place] [address] Care Team Providers Care Supervisor Sound Technician Name Role Phone Cathy Diaz MD Primary Care Provider Encounter Details Date Type Department Care Team (Late st Contact Info) Description 06/16/2007 Before PRISM Converted Visit (Maple) [facility] - Maple conversion [address] [place] [address] Josie Santillan MD [address] [place] [phone] Social History Tobacco Use Types Packs/Day Years [...] Josie Santillan MD - terry Job ID: [id number] Doc ID: [id number] cc: Cathy Diaz MD documented in this encounter Care Teams Supervisor Sound Technician Relationship Specialty Start Date End Date Cathy Diaz MD [address] [place] [phone] PCP - General 01/05/09 09/17/21 documented as of this encounter
--- OUTSIDE RECORDS SUMMARY | 2024-03-24 15:13 | XMS_ITS | Encounter Summary ---
Author Organization [facility] Address [address] [place] [address] Care Team Providers Care Concrete Finisher Name Role Phone Cathy Diaz MD Primary Care Provider [phone] Encounter Details Date Type Department Care Team (Late st Contact Info) Description 07/25/2003 Results Only [facility] - Maple conversion [address] [place] [address] Maricel Lerner MD [address] [place] [phone] Social History Tobacco Use Types Packs/Day [...] ISOLATED [facility] Report Status Final [id number] [facility] 07/25/2003 20:5 9 EST 07/25/2003 20:59 EST Maricel Lerner MD MICROBIOLOGY - GENER AL ORDERABLES [facility] [address] [place] [address] documented in this encounter Visit Diagnoses Not on filedocumented in this encounter Care Teams Concrete Finisher Relationship Specialty Start Date End Date Cathy Diaz MD [address] [place] [phone] PCP - General 01/05/09 09/17/21 documented as of this encounter
--- OUTSIDE RECORDS SUMMARY | 2024-03-24 15:13 | XMS_ITS | Encounter Summary ---
Author Organization [facility] Address [address] [place] [address] Care Team Providers Care Senior Enlisted Advisor Name Role Phone Unavailable Primary Care Provider Unavailabl e Encounter Details Date Type Department Care Team (Latest Contact Info) Description 04/24/2007 11:36 EDT - 04/24/2007 11:59 EDT Hospital Encounter [facility] - Other [address] [place] [address] Cathy Diaz MD [address] [place] [phone] Discharge Disposition: Home or Self Care [...]
--- OUTSIDE RECORDS SUMMARY | 2024-03-24 15:13 | XMS_ITS | Encounter Summary ---
Author Organization [facility] Address [address] [place] [address] Care Team Providers Care Project Management Specialist Name Role Phone Unavailable Primary Care Provider Unavailabl e Encounter Details Date Type Department Care Team (Late st Contact Info) Description 06/16/2007 8:57 EDT Hospital Encounter [facility] [address] [place] [address] Josie Santillan MD [address] [place] [phone] Social History Tobacco Use Types [...]
--- OUTSIDE RECORDS SUMMARY | 2024-03-24 15:13 | XMS_ITS | Encounter Summary ---
Author Organization [facility] Address [address] [place] [address] Care Team Providers Care Shear Setter Name Role Phone Cathy Waldrop MD Primary Care Provider [phone] Encounter Details Date Type Department Care Team (Late st Contact Info) Description 04/24/2007 Results Only [facility] - Maple conversion [address] [place] [address] Cathy Waldorp MD [address] [place] [phone] Social History Tobacco Use Types Packs/Day [...] Result No Neisseria gonorrhoeae DNA detected by procurement consultant mediated amplification. [facility] Report Status Final [id number] [facility] Specimen Description Cervix [facility] 04/24/2007 23:2 4 EDT 04/24/2007 23:24 EDT Cathy Waldrop MD MICROBIOLOGY - GENER AL ORDERABLES Performing Organization Address [facility] de Phone Number [facility] [address] [place] [address] * CHLAMYDIA TRACHOMATIS AMPLIFIED PROBE (04/24/2007 23:24 EDT) Specimen Description Cervix [facility] Result No Chlamydia trachomatis DNA detected by procurement consultant mediated amplification. [facility] Report Status Final [id number] [facility] 04/24/2007 23:2 4 EDT 04/24/2007 23:24 EDT Cathy Waldrop MD MICROBIOLOGY - GENER AL ORDERABLES Performing Organization Address [facility] de Phone Number [facility] [address] [place] [address] * CYTOPATHOLOGY (04/24/2007 0:00 EDT) Pathology Report: CYTOPATHOLOGY REPORT Reports generated via electronic interface contain original data; however they are lacking the format of the original report. Caution should be taken when reading/interpreti ng unformatted reports. Name: ? MALIA SCHAEFER ? Accession #: ? [id number] : ? 1990 (Age: 16) ??F ?Collect Date: ? 04/24/2007 Location: ? [facility] ? Receive Date: ? 04/27/2007 Provider: ?CATHY WALDROP MD Copy to: ? Specimen/Source: ?ThinPrep Pap Test, Cervix/Endocervix, processed on Exie ThinPrep Imaging System, with manual evaluation Last [...] Waldrop MD PATHOLOGY ORDERABLES Performing Organization Address City/State/[facility] Co de Phone Number [facility] [address] [place] [address] documented in this encounter Visit Diagnoses Not on filedocumented in this encounter Care Teams Shear Setter Relationship Specialty Start Date End Date Cathy Waldrop MD [address] [place] [phone] PCP - General 01/05/09 09/17/21 documented as of this encounter
--- OUTSIDE RECORDS SUMMARY | 2024-03-24 15:13 | XMS_ITS | Encounter Summary ---
Author Organization [facility] Address [address] [place] [address] Care Team Providers Care Meat Products Demonstrator Name Role Phone Unavailable Primary Care Provider Unavailabl e Encounter Details Date Type Department Care Team (Late st Contact Info) Description 07/25/2003 11:52 EST - 07/25/2003 11:59 EST Hospital Encounter [facility] - Other [address] [place] [address] Maricel Lerner MD [address] [place] [phone] Discharge Disposition: Auto Discharge Social History [...]
--- OUTSIDE RECORDS SUMMARY | 2024-03-24 15:13 | XMS_ITS | Encounter Summary ---
Author Organization [facility] Address [address] [place] [address] Care Team Providers Care Rn Employee Health Name Role Phone Unavailable Primary Care Provider Blanco shane Encounter Details Date Type Department Care Team (Latest Contact Info) Description 10/12/2002 15:25 EST Hospital Encounter [facility] - Other [address] [place] [address] Indra Davila MD Unknown, Provider, Discharge Disposition: [...] ? MALIA LEDESMA ? Accession #: ? [id number] ? : ? 1990 (Age: 12) ??F [...] rather than a distinctive, umbilicated papule. ??(Dr. Blood)/[facility] Microscopic Description: ? Sections consist of [...] invaginations. ??There is no appreciable inflammation. ??(Dr. Blood)/[facility] Document reviewed and electronically signed by: [...] Davila MD PATHOLOGY ORDERABLES Performing Organization Address City/State/[facility] Co de Phone Number [facility] [address] [place] [address] documented in this encounter Visit Diagnoses Not on filedocumented in this encounter
--- NOTE | 2024-03-24 16:14 | ED.GENADUL_ITS ---
Discharge Plan Disposition Patient Disposition: Home Condition: Stable Discharge Details Clinical Impression: Superficial thrombophlebitis Primary Care Provider: Randolph Harvey ED Provider: Scott Florez Home Meds and New Rx's Prescriptions: Continued sertraline 50 mg tablet 100 mg PO HS Patient Comments: TAKE ONE TABLET BY MOUTH EVERY DAY WITH 25MG TABLET FOR A TOTAL DAILY DOSE OF 75MG clonidine HCl 0.1 mg tablet 0.1 mg PO DAILY PRN Patient Comments: TAKE ONE TABLET BY MOUTH EVERY 6 HOURS NEEDED FOR ANXIETY OR WITHDRAWAL SYMPTOMS MAY TAKE 2 TABLETS AT BEDTIME FOR SLEEP AND ANXIETY Eliquis 5 mg tablet 5 mg PO BID 30 Days Qty: 60 0RF Rx Instructions: 10mg BID for one week then 5mg twice daily disulfiram 250 mg tablet 250 mg PO DAILY Patient Comments: TAKE ONE TABLET BY MOUTH EVERY DAY lisdexamfetamine 50 mg capsule 40 mg PO DAILY Patient Comments: TAKE ONE CAPSULE BY MOUTH EVERY DAY multivitamin [Multiple Vitamins] Tablet 1 tab PO QAM Qty: 30 0RF Discharge Instructions Instructions: Superficial vein phlebitis and thrombosis Additional Instructions: You were seen in the emergency department for the known superficial clots of your right upper extremity, you had 2 different clot seen on ultrasound on March 17 year 1 measuring 5 cm 1 measuring 2.4 cm. You are on adequate treatment and these should resorb with your Eliquis use. You may also put gentle compression and heat on the areas to help resorb the clots. There is no pulmonary embolism in your lungs and you are at low risk for any complication of this even if there was one because you are on Eliquis which is the treatment for pulmonary embolism. Please return to the emergency department tomorrow for bilateral upper extremity ultrasounds, if you are developing further or worsening superficial clots now in the left upper extremity that should be evaluated, you may need referral to vascular surgery and he may need specialized outpatient testing for coagulation disorders. Please return to the emergency department for any severe increase in arm pain and swelling, skin changes like complete numbness and coolness to touch, chest pain and fast heart rate. Referrals: Randolph Harvey [Primary Care Provider] - HPI General Date/Time Provider Initiated Documentation: 03/24/24 15:10 . HPI Narrative: 33 year-old female presents to ED today by POV/ambulating with a chief complaint of known multiple superficial clots of R UE seen 03/17, started on Eliquis due to cephalin thrombosis >5cm, now having L UE nodular swellings in venous distribution, and high anxiety over clots spreading to lungs after googling her condition. Quality described as painful to touch over the known clots, no radiation to severe swelling, bruising, numbness, pallor to hands, chest pain. Severity is described as severe. Palliating factors include taking Eliquis as directed. Provoking factors include unknown- had some peripheral IVs to the area. Events leading up to the incident/Associated Symptoms: Patient has no known clotting disorder. Patient is anticoagulated on Eliquis. Related Data Home Medications ?Medication ?Instructions ?Recorded ?Confirmed sertraline 50 mg tablet 100 mg PO HS 02/02/24 03/24/24 disulfiram 250 mg tablet 250 mg PO DAILY 02/09/24 03/24/24 lisdexamfetamine 50 mg capsule 40 mg PO DAILY 02/10/24 03/24/24 multivitamin (Multiple Vitamins 1 tab PO QAM #30 tabs 02/12/24 03/24/24 tablet) apixaban 5 mg tablet (Eliquis) 5 mg PO BID 30 days #60 tabs 03/17/24 03/24/24 clonidine HCl 0.1 mg tablet 0.1 mg PO DAILY PRN 03/17/24 03/24/24 Previous Rx's ?Medication ?Instructions ?Recorded multivitamin (Multiple Vitamins 1 tab PO QAM #30 tabs 02/12/24 tablet) apixaban 5 mg tablet (Eliquis) 5 mg PO BID 30 days #60 tabs 03/17/24 Allergies Allergy/AdvReac Type Severity Reaction Status Date / Time Penicillins AdvReac Intermediate Hives Verified 03/24/24 15:16 General Stated Complaint: Vascular LETITIA: 3 Review of Systems All systems reviewed & are unremarkable except as noted in HPI and below Exam Narrative Exam Narrative: GENERAL APPEARANCE: Well-nourished, non-toxic, awake and alert, atraumatic, no acute distress. SKIN: Warm, pink, dry, intact, without rashes/lesions/ulcerations. HEAD: Normocephalic, atraumatic, normal hair distribution for gender/age. EYES: Normal conjunctiva, no exudates on lids/lashes. ENT: Nares patent, no circumoral cyanosis, no facial swelling NECK: Supple, trachea midline, painless cervical ROM. LUNGS/CHEST: Non-labored respirations, normal A/P diameter, symmetrical expansion, no chest wall deformity HEART (CV/PV): Regular rate, no peripheral edema, no JVD. ABDOMEN: Soft, non-distended, no guarding. MSK: Normal ROM, no swelling/deformity to bilateral UEs or LEs, moving all extremities without weakness, no cyanosis, spine midline without tenderness, normal curvature, nodular swellings and venous distribution of right upper extremity in the forearm, no tenderness in the bicep, right upper extremity has minor nodular tenderness in the superficial veins of the forearm, bilateral radial pulses 2+, no bicep tenderness or swelling, no pallor or ecchymosis. NEURO: Mental Status AAOx4 - alert to person, place, time, events No facial droop, no forehead involvement. Motor: No focal weakness - strength 5/5 in bilateral UEs and LEs, proximal and distal, symmetric. Sensory: sensation intact to light touch globally. Gait normal: patient ambulated without ataxia into ED room. PSYCH: euthymic, cooperative, pleasant, appropriate speech Course Vital Signs Vital signs: Vital Signs Temperature 36.6 C 03/24/24 15:11 Pulse 85 03/24/24 15:11 Respiratory Rate 12 03/24/24 15:11 Blood Pressure 127/84 03/24/24 15:11 Pulse Oximetry 100 03/24/24 15:11 Temperature 36.6 C 03/24/24 15:11 Temperature Source Skin 03/24/24 15:11 Pulse 85 03/24/24 15:11 Respiratory Rate 12 03/24/24 15:11 Blood Pressure 127/84 03/24/24 15:11 Blood Pressure Position Sitting 03/24/24 15:11 Pulse Oximetry 100 03/24/24 15:11 Oxygen Delivery Method Room Air 03/24/24 15:11 Oxygen Flow Rate 0 03/24/24 15:11 Pain Level 0 03/24/24 15:11 Lab/Test Results Lab/Test Results: POC- Test(urine) Negative Medical Decision Making This dictation utilizes [id number] dictation software and may contain unedited grammatical errors. 33 year-old female presents to ED today by POV/ambulating with a chief complaint of known multiple superficial clots of R UE seen 7/31, started on Eliquis due to cephalin thrombosis >5cm, now having L UE nodular swellings in venous distribution, and high anxiety over clots spreading to lungs after googling her condition. Quality described as painful to touch over the known clots, no radiation to severe swelling, bruising, numbness, pallor to hands, chest pain. Severity is described as severe. Palliating factors include taking Eliquis as directed. Provoking factors include unknown- had some peripheral IVs to the area. Events leading up to the incident/Associated Symptoms: Patient has no known clotting disorder. Patients' medical history: History of substance abuse, history of alcoholic hepatitis and severe alcohol use disorder. Family and social history: noncontributory. Pertinent exam findings / vital signs include nodular swellings and venous distribution of right upper extremity in the forearm, no tenderness in the bicep, right upper extremity has minor nodular tenderness in the superficial veins of the forearm, benign cardiopulmonary status, nontoxic and afebrile, no cough or respiratory distress. Differential / pathologies of concern include pulmonary embolism, worsening clots despite anticoagulation, clotting disorder, vasculitis, Diagnostic studies of: -CBC, coagulation studies of PT/PTT/D-dimer, CMP, CRP and ESR, troponin I and BNP, EKG, CTA chest PE study. -CBC shows a mild leukocytosis which is nonspecific -CMP benign -LFTs within normal limits -Troponin and BNP negative, no right heart strain -ECG without S1Q3T3, no sign of STEMI or other arrhythmia or T wave inversions -CTA chest negative for any acute pathology -CRP and ESR negative do not suspect vasculitic pathology -D-dimer 224 Interventions of: -Given clonidine as patient requested for anxiety, takes it at home. ED Course/Assessment/Plan: 33-year-old female presents with possibly worsening known superficial thrombophlebitis of right upper extremity now noticing some clots on the left, high anxiety over PE, was unaware that there was multiple locations of superficial clot on her last ultrasound, I went over these results and counseled her that there is low risk of these clots traveling and she is on correct and adequate treatment with Eliquis. I encouraged her to perform warm compresses and compression sleeves, I directed her to return tomorrow so we could assess whether these clots are worsening on anticoagulants and get ultrasound of bilateral upper extremities, she may need referral to vascular surgery at outside facility should she have worsening clots despite anticoagulation and genetic testing for clotting disorders. I stressed return her here for signs of neurovascular compromise in either upper extremity, any palpitation shortness of breath or coughing up of blood Findings not consistent with pulmonary embolism, vasculitis, right heart strain, neurovascular compromise of upper extremities. Disposition of superficial thrombophlebitis. Patient verbalized understanding of the plan and return to ED criteria and engaged in shared decision making. Medical Records Medical records reviewed: Yes I reviewed the patient's medical records. Imaging Data Radiologic Study: Attestation: I personally reviewed and interpreted this imaging study as follows: Imaging: CT Scan Radiologist's impression: EXAM: CT CHEST PE CTA CLINICAL HISTORY: known clots- traveling up arms. TECHNIQUE: Imaging Protocol: Axial CT angiography was performed with multi- slice acquisition and multi-planar reconstructions as well as axial, coronal and sagittal MIP reconstructions. CONTRAST MATERIAL: Intravenous: Omnipaque 350 Contrast volume:70ml COMPARISON: CR XR CHEST 2V PA LATERAL from 05/27/2023 CR XR CHEST 2V PA LATERAL from 06/26/2023 FINDINGS: Pulmonary Arteries: No evidence of filling defect to suggest pulmonary emboli. Tracheobronchial tree: No mucous plugging. Mediastinum and Crystal: No dominant adenopathy or fluid collection. Pulmonary parenchyma: No consolidation or dominant measurable mass. Scarring anteromedial right upper lobe. Expiratory changes. Pleura: No effusion or pneumothorax. Heart: The heart is not dilated. No coronary artery calcifications are seen. Aorta: Thoracic aorta non-dilated. No dissection. Upper abdomen: No acute findings. Bones: Unremarkable for age. Tubes, Catheters, and Lines: None Soft tissues: Unremarkable. IMPRESSION: No evidence of pulmonary embolism or other acute abnormality.. Lab Data Lab results reviewed: Yes I reviewed the patient's lab results. Labs: Laboratory Tests Range/Units 03/24/24 03/24/24 17:15 17:50 WBC (4.4-10.8) 10^3/uL 12.06 H RBC (3.93-5.22) 10^6/uL 5.05 Hgb (11.2-15.7) g/dL 15.6 Hct (36.0-46.0) % 47.2 H MCV (80-95) fL 94 MCH (27.0-33.0) pg 30.9 MCHC (32.0-36.0) % 33.1 RDW (11.7-14.6) % 11.8 Plt Count (130-400) 10^3/uL 310 MPV (8.0-11.0) fL 10.1 Immature Gran % % 0.3 Neutrophils % % 81.3 Lymphocytes % % 11.4 Monocytes % % 5.7 Eosinophils % % 0.8 Basophils % % 0.5 Nucleated RBC % (0.0-0.3) % 0.0 Absolute Neutrophils (1.2-6.7) 10^3/uL 9.80 H Absolute Lymphocytes (1.2-3.4) 10^3/uL 1.37 Absolute Monocytes (0.1-0.8) 10^3/uL 0.69 Absolute Eosinophils (0.0-0.7) 10^3/uL 0.10 Absolute Basophils (0.0-0.2) 10^3/uL 0.06 ESR (0-20) mm/hr 12 PT Cancelled 10.7 INR Cancelled 1.1 APTT Cancelled 27.1 D-Dimer Cancelled 224 Sodium (136-145) mmol/L 136 Potassium (3.5-5.1) mmol/L 4.4 Chloride (98-107) mmol/L 101 Carbon Dioxide (21.0-32.0) mmol/L 25.6 Anion Gap (3-11) mmol/L 9.4 BUN (7-18) mg/dL 4 L Creatinine (0.55-1.02) mg/dL 0.7 Est GFR (CKD-EPI 2020) (mL/min/1.73m2) 118.51 Glucose (74-106) mg/dL 91 Calcium (8.5-10.1) mg/dL 9.7 Total Bilirubin (0.2-1.0) mg/dL 0.49 AST (15-37) U/L 26 ALT (14-59) U/L 36 Alkaline Phosphatase (46-116) U/L 75 Troponin I (< or =60) ng/L < 50 C-Reactive Protein (<or=0.5) mg/dL < 0.50 NT-Pro-B Natriuret Pep (<300) pg/mL 38 Total Protein (6.4-8.2) g/dL 8.2 Albumin (3.4-5.0) g/dL 4.3 Quality:SDOH Health Related Social Needs: Health related social needs risk of homeless Health related social needs details FLOR PFSH All Active Problems (Updated 03/24/24 @ 18:39 by FRANKLIN Coelho) Superficial thrombophlebitis (Acute) Arm vein blood clot (Acute) Smoker (Acute) Alcoholic hepatitis (Chronic) Alcohol use disorder, severe, dependence (Chronic) Herpes simplex type 1 infection (Acute 12/19/16) Eczema (Chronic) ADHD (attention deficit hyperactivity disorder), combined type (Chronic) Generalized anxiety disorder (Chronic) Depression (Acute) Medical History (Updated 03/24/24 @ 18:39 by FRANKLIN Coelho) Benzodiazepine abuse Presence of intrauterine contraceptive device (IUD) Paragard IUD placed 12/01/23 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 Vanessa Bryan MD History of calculus of kidney during (12/19/16) History of substance abuse (12/19/16) History of acute pyelonephritis Surgical History EGD w/Bx for H.Pylori (07/29/08) [facility] Cystoscopy (01/05/18) [facility] Urology with R ureteral stent placement Family History Father , OD at age 42. Substance abuse Essential hypertension Mother Mental disorder Bipolar d/o Neoplasm small cell neuroendocrine carcinoma Sister Substance abuse Mental disorder Bipolar d/o Brother Substance abuse Mental disorder Bipolar d/o Brother Substance abuse Mental disorder Bipolar d/o Grandmother Neoplasm Breast CA Social History Smoking/Tobacco Use Status: Current every day Tobacco Type: cigarettes and e-cigarettes Tobacco: How many years used: 10 Quit status: has quit before Counseling given: provider counseling Smoking risk assessment performed?: Yes Alcohol Intake: current Alcohol Intake frequency: 3 or more drinks per day Al cohol type: beer, wine and hard liquor Details: Decided to quit drinking. Stopped 01/2019 Drug use: Never Substance use type: marijuana Adopted: No Foster care: No Household members: significant other and children Housing: apartment Number of Children: 2 current occupation: [employer] Pets and animals: Yes (1 dog) What type of physical activity do you participate in: regular exercise Duration: other Details: cleaning Frequency: daily Do you feel safe at home: Yes Do you feel safe in your relationship?: Yes Female Reproductive History Menstrual Duration of menses: 6-7 days control method: copper IUCD History History 2 Para 2 Hx # Term Pregnancies 2 Multiple births 0 Hx # Pregnancies 0 Ectopic pregnancies 0 AB induced 0 Hx Number of Living Children 2 AB spontaneous 0 Past Pregnancies Del. Date GA/Weeks # Preg Succ Route Wgt Sex Labor Lgth Anesth esia Location [facility] 11/20/16 40 vaginal 2920.001 g Female 9 hours regional 12/22/18 40 No vaginal 3685.438 g Female Sudhir Bauer CNM Delivery Date: 11/20/16 Last Updated by: Vale Bauer Delivered at [place]
--- NOTE | 2024-03-24 16:45 | DI.CT_ITS ---
Exam(s) CT CHEST PE CTA EXAM: CT CHEST PE CTA CLINICAL HISTORY: known clots- traveling up arms. TECHNIQUE: Imaging Protocol: Axial CT angiography was performed with multi-slice acquisition and mu lti-planar reconstructions as well as axial, coronal and sagittal MIP reconstructions. CONTRAST MATERIAL: Intravenous: Omnipaque 350 Contrast volume:70ml COMPARISON: CR XR CHEST 2V PA LATERAL from 05/27/2023 CR XR CHEST 2V PA LATERAL from 06/26/2023 FINDINGS: Pulmonary Arteries: No evidence of filling defect to suggest pulmonary emboli. Tracheobronchial tree: No mucous plugging. Mediastinum and Crystal: No dominant adenopathy or fluid collection. Pulmonary parenchyma: No consolidation or dominant measurable mass. Scarring anteromedial right upper lobe. Expiratory changes. Pleura: No effusion or pneumothorax. Heart: The heart is not dilated. No coronary artery calcifications are seen. Aorta: Thoracic aorta non-dilated. No dissection. Upper abdomen: No acute findings. Bones: Unremarkable for age. Tubes, Catheters, and Lines: None Soft tissues: Unremarkable. IMPRESSION: No evidence of pulmonary embolism or other acute abnormality.. RADIATION DOSE DELIVERED: Total DLP DATA REPOSITORY: All CT scans at this facility are submitted to the National Radiology Data Registry (NRDR) Dose Index Registry (DIR) with the [employer] (ACR). RADIATION OPTIMIZATION: All CT scans at this facility use at least one of these dose optimization te chniques: automated exposure control; mA and/or kV adjustment per patient size (includes targeted exa ms where dose is matched to clinical indication); or iterative reconstruction.
--- NOTE | 2024-03-24 16:45 | RT.EKG_ITS ---
APPROVED REPORT Exam: Resting ECG Reason for Exam: baseline/screening Patient Location: E HR:52 bpm ECG Measurements Heart Rate 52 AXIS MN 123 P 27 QRSd 87 QRS 48 QT 421 T 36 QTc 391 Conclusion Sinus bradycardia...rate< 60 sinus bradycardia, normal axis, normal intervals, consider subtle st segment elevation II III aVF v j point elevation
[2024-03-24 17:23] LABS: Abs Immature Grans 0.04 10^3/uL (0.0-0.06); Absolute Basophil Count 0.06 10^3/uL (0.0-0.2); Absolute Monocyte Count 0.69 10^3/uL (0.1-0.8); Basophils % 0.5 %; Eosinophils % 0.8 %; HCT 47.2 % (36.0-46.0); HGB 15.6 g/dL (11.2-15.7); Immature Grans % 0.3 %; Lymphocytes % 11.4 %; MCH 30.9 pg (27.0-33.0); MCHC 33.1 % (32.0-36.0); MCV 94 fL (80-95); MPV 10.1 fL (8.0-11.0); Monocytes % 5.7 %; Neutrophils % 81.3 %; Platelet Count 310 10^3/uL (130-400); RBC 5.05 10^6/uL (3.93-5.22); RDW 11.8 % (11.7-14.6); RDW-SD 40.9 fL; WBC 12.06 10^3/uL (4.4-10.8)
[2024-03-24 17:30] LABS: ESR 12 mm/hr (0-20)
[2024-03-24 17:32] LABS: Absolute Lymphocyte Count 1.37 10^3/uL (1.2-3.4)
[2024-03-24] MEDS: Normal Saline - Diluent 50 ML VIAL IJ (17:33)
[2024-03-24] MEDS: Omnipaque 350 MG/ML 100 ML BTL IJ (17:34)
[2024-03-24] MEDS: cloNIDine 0.1 MG TAB 0.2 MG PO (17:37)
[2024-03-24 17:57] LABS: ALT 36 U/L (14-59); AST 26 U/L (15-37); Albumin 4.3 g/dL (3.4-5.0); Alkaline Phosphatase 75 U/L (46-116); Anion Gap 9.4 mmol/L (3-11); BUN 4 mg/dL (7-18); Bilirubin, Total 0.49 mg/dL (0.2-1.0); CO2 25.6 mmol/L (21.0-32.0); CREATININE 0.7 mg/dL (0.55-1.02); Calcium 9.7 mg/dL (8.5-10.1); Chloride 101 mmol/L (98-107); Estimated GFR 118.51 (mL/min/1.73m2); Glucose 91 mg/dL (74-106); NT-proBNP 38 pg/mL (<300); Potassium 4.4 mmol/L (3.5-5.1); Sodium 136 mmol/L (136-145); Total Protein 8.2 g/dL (6.4-8.2)
[2024-03-24 17:59] LABS: C-Reactive Protein < 0.50 mg/dL (<or=0.5); Troponin I < 50 ng/L (< or =60)
[2024-03-24 18:08] LABS: INR 1.1 (0.9-1.1); PTT Activated 27.1 sec (23.6-32.8); Prothrombin Time 10.7 sec (9.1-11.1)
[2024-03-24 18:46] LABS: D-Dimer 224 ng/mlFEU (<500)
== END 2024-03-24 18:41 | disposition home or self-care (01) ==
PROVIDERS: Emergency Provider Physician Assistant; PCP Student in an Organized Health Care Education/Training Program
DX: M79.601 Pain in right arm (principal); R22.31 Localized swelling, mass and lump, right upper limb; I82.611 Acute embolism and thrombosis of superficial veins of right upper extremity
CPT/HCPCS: 36415; 71275; 80053; 81025; 85652; 93005; 99285; 83880; 84484; 85025; 85379; 85610; 85730; 86140; 93010; 99283; J3490

== ENCOUNTER 2024-03-25 07:48 | Emergency (ER) | payer BC, SELFPAY ==
[2024-03-25 07:55] VITALS: BP 125/104; PULSE 71; RESP 16; TEMP 36.4; O2SAT 100
[2024-03-25] MEDS: cloNIDine 0.1 MG TAB (08:36)
--- NOTE | 2024-03-25 09:15 | DI.US_ITS ---
Exam(s) US UPPER EXTREMITY VENOUS RT EXAM: US UPPER EXTREMITY VENOUS RT CLINICAL HISTORY: arm swelling ?DVT TECHNIQUE: GRAYSCALE, COLOR, DOPPLER IMAGING OF THE VENOUS SYSTEM OF THE UPPER EXTREMITY-BILATERAL COMPARISON: US US UPPER EXTREMITY VENOUS RT from 03/17/2024 FINDINGS: Basilic vein: Patent. Normal color-flow and normal compression and augmentation properties. Brachial vein(s):Patent. Normal color flow. Normal compression and augmentation properties. Cephalic vein:There is noncompressibility of the mid aspect of the left cephalic vein, consistent wit h intraluminal thrombus. Axillary vein: Patent. Normal color flow. Normal compression and augmentation properties. Visualized subclavian vein: Patent. No obvious intraluminal thrombus. There is also lack of normal compression of the mid-proximal aspect of the ulnar vein in the forearm. IMPRESSION: 1. Lack of compressibility of the mid left cephalic vein and of the proximal-mid ulnar vein. These findings are cysts suspicious for thrombosis of these veins. Discussed with ER physician. DATA REPOSITORY:
--- NOTE | 2024-03-25 09:15 | DI.US_ITS ---
Exam(s) US UPPER EXTREMITY VENOUS LT EXAM: US UPPER EXTREMITY VENOUS LT CLINICAL HISTORY: arm swelling ?DVT TECHNIQUE: GRAYSCALE, COLOR, DOPPLER IMAGING OF THE VENOUS SYSTEM OF THE UPPER EXTREMITY-LEFT COMPARISON: No exams were available for comparison FINDINGS: Basilic vein: Patent. Normal color-flow and normal compression and augmentation properties. Brachial vein(s):Patent. Normal color flow. Normal compression and augmentation properties. Cephalic vein:Patent. Normal color flow. Normal compression and augmentation properties. Axillary vein: Patent. Normal color flow. Normal compression and augmentation properties. Visualized subclavian vein: Patent. No obvious intraluminal thrombus. IMPRESSION: 1. No evidence of venous thrombosis in the left upper extremity. DATA REPOSITORY:
--- NOTE | 2024-03-25 09:28 | W.ED.GENAD ---
Discharge Plan Disposition Patient Disposition: Home Discharge Details Clinical Impression: Localized swelling of right forearm Primary Care Provider: Randolph Harvey ED Provider: Margarito Vasquez Home Meds and New Rx's Prescriptions: Continued sertraline 50 mg tablet 100 mg PO HS Patient Comments: TAKE ONE TABLET BY MOUTH EVERY DAY WITH 25MG TABLET FOR A TOTAL DAILY DOSE OF 75MG clonidine HCl 0.1 mg tablet 0.1 mg PO DAILY PRN Patient Comments: TAKE ONE TABLET BY MOUTH EVERY 6 HOURS NEEDED FOR ANXIETY OR WITHDRAWAL SYMPTOMS MAY TAKE 2 TABLETS AT BEDTIME FOR SLEEP AND ANXIETY Eliquis 5 mg tablet 5 mg PO BID 30 Days Qty: 60 0RF Rx Instructions: 10mg BID for one week then 5mg twice daily disulfiram 250 mg tablet 250 mg PO DAILY Patient Comments: TAKE ONE TABLET BY MOUTH EVERY DAY lisdexamfetamine 50 mg capsule 40 mg PO DAILY Patient Comments: TAKE ONE CAPSULE BY MOUTH EVERY DAY multivitamin [Multiple Vitamins] Tablet 1 tab PO QAM Qty: 30 0RF Discharge Instructions Additional Instructions: You are seen in the emergency department for your arm swelling. Your ultrasound showed no sign of progression of the blood clots in your arms. There is concerned that they could still be there but they have certainly not worsened. As we discussed please continue taking your blood thinner until you are seen next week by her primary care provider. Please return to the emergency department, as we discussed, if you develop color changes in your hand if you pass out or if you develop chest pain. Discharge Data Discharge Date/Time-TO BE ENTERED AT DEPARTURE: 03/25/24 11:39 HPI General Date/Time Provider Initiated Documentation: 03/25/24 09:08. HPI Narrative: MDM This is an overall very well-appearing normothermic and not tachycardic [id number] female with mild distal right upper extremity superficial swelling and recent diagnosis of upper extremity DVTs currently on apixaban for which she will undergo repeat duplex study. No pain out of proportion to suggest necrotizing soft tissue infection. No significant erythema to suggest cellulitis. No signs of lymphadenitis. Right hand warm & well-perfused so I am not concerned for critical limb ischemia. No rash to right upper extremity to suggest zoster. No trauma to right upper extremity so doubt fracture so I will not obtain plain films. Patient has not had a recent upper extremity PICC line nor is she an IV drug user nor is she on oral anticoagulants so she is relatively low risk for upper extremity DVT. She has had no B symptoms such as weight loss night sweats nor fevers so doubt malignancy. She a CTA her chest performed last night which was reassuring against PE. No chest pain at the moment to suggest benefit from repeat CT. Will reassess following imaging. No hand numbness nor history of cervical rib to suggest thoracic outlet syndrome. Per chart review patient was found on March 17 to have superficial thrombophlebitis. The noncompressible hypoechoic thrombus in the right cephalic vein measured almost 5 cm in length in total. Given that there is no evidence of DVT and that the superficial vein contains a thrombus less than 5 cm will consider discontinuation of her anticoagulation assuming repeat duplex study does not show progression of thrombus. 11:35 AM Patient had no left upper extremity DVT. Her right upper extremity duplex study showed no progression of her superficial thrombophlebitis. There was lack of compressibility in the mid right cephalic vein and of the proximal mid ulnar vein. Given no obvious DVT but no obvious resolution of symptoms we will have patient continue her apixaban. She does have outpatient PCP follow-up next week. It may be beneficial for her to have a repeat right upper extremity duplex study at that point in time however will defer this decision to the patient's primary care provider. We did discuss return indications to the ED including any worsening arm pain any color change in her hand or any chest pain. She understood her return indications and was discharged with trial of back and outpatient management. Chronic conditions affecting the care of the patient: N/A History obtained from an outside historian: N/A External record review: N/A Medications: 1 mg clonidine Social determinants of health affecting disposition: N/A Management discussed with: Treatment/interventions considered: Plain film but deferred and lab work but deferred. Response to therapies provided: N/A HPI This is a [id number] female with a reported recent history of upper extremity DVT on apixaban arrived to the emergency department with recurrent right upper extremity pain with plan for duplex study to be obtained this morning. Patient was seen in the emergency department last night. She was evaluated with CT scan of her chest which was fortunately reassuring against PE. She has had no fevers no unintentional weight loss. She has recently been detoxing from alcohol and has had multiple hospitalizations with multiple peripheral IVs placed. She has never had a PICC line. She is not on oral contraceptive pills and has a copper IUD. She is not an IV drug user. She has no history of PEs and DVTs. She denies fevers chills night sweats and unintentional weight loss. She has been adherent with her apixaban. Exam General: Well-appearing in no acute distress speaking in complete sentences. Head: Normocephalic, atraumatic. Eye: Extraocular eye movements intact. No conjunctival injection. No scleral icterus. Ear, nose, mouth, throat: Grossly normal inspection. Normal voice, handling secretions normally. Neck: Trachea midline. Cardiovascular: Well-perfused distal extremities. Respiratory: Nonlabored respiration. Gastrointestinal: Nondistended abdomen. Musculoskeletal: No edema. Moving all 4 extremities spontaneously. Skin: On the volar aspect of the right upper extremity in the distal forearm there is a mild superficial swelling and tenderness. No palpable cords. No erythema. No significant swelling. No signs of lymphadenitis. Neurologic: Alert and appropriate, no apparent acute deficits. Psychiatric: Mood and manner are appropriate. Grooming and personal hygiene are appropriate. Related Data Home Medications ?Medication ?Instructions ?Recorded ?Confirmed sertraline 50 mg tablet 100 mg PO HS 02/02/24 03/25/24 disulfiram 250 mg tablet 250 mg PO DAILY 02/09/24 03/25/24 lisdexamfetamine 50 mg capsule 40 mg PO DAILY 02/10/24 03/25/24 multivitamin (Multiple Vitamins 1 tab PO QAM #30 tabs 02/12/24 03/25/24 tablet) apixaban 5 mg tablet (Eliquis) 5 mg PO BID 30 days #60 tabs 03/17/24 03/25/24 clonidine HCl 0.1 mg tablet 0.1 mg PO DAILY PRN 03/17/24 03/25/24 Previous Rx's ?Medication ?Instructions ?Recorded multivitamin (Multiple Vitamins 1 tab PO QAM #30 tabs 02/12/24 tablet) apixaban 5 mg tablet (Eliquis) 5 mg PO BID 30 days #60 tabs 03/17/24 Allergies Allergy/AdvReac Type Severity Reaction Status Date / Time Penicillins AdvReac Intermediate Hives Verified 03/24/24 15:16 General Stated Complaint: Vascular LETITIA: 3 Course Vital Signs Vital signs: Vital Signs Temperature 36.4 C L 03/25/24 07:55 Pulse 71 08/08/24 07:55 Respiratory Rate 16 03/25/24 07:55 Blood Pressure 125/104 H 03/25/24 07:55 Pulse Oximetry 100 03/25/24 07:55 Temperature 36.4 C L 03/25/24 07:55 Temperature Source Skin 03/25/24 07:55 Pulse 71 03/25/24 07:55 Respiratory Rate 16 03/25/24 07:55 Blood Pressure 125/104 H 03/25/24 07:55 Blood Pressure Position Sitting 03/25/24 07:55 Pulse Oximetry 100 03/25/24 07:55 Oxygen Delivery Method Room Air 03/25/24 07:55 Oxygen Flow Rate 0 03/25/24 07:55 Medical Decision Making Quality:SDOH Health Related Social Needs: Health related social needs risk of homeless Health related social needs details FLOR PFSH All Active Problems (Updated 03/25/24 @ 11:35 by Margarito Vasquez MD) Localized swelling of right forearm (Acute) Superficial thrombophlebitis (Acute) Arm vein blood clot (Acute) Smoker (Acute) Alcoholic hepatitis (Chronic) Alcohol use disorder, severe, dependence (Chronic) Herpes simplex type 1 infection (Acute 12/19/16) Eczema (Chronic) ADHD (attention deficit hyperactivity disorder), combined type (Chronic) Generalized anxiety disorder (Chronic) Depression (Acute) Medical History (Updated 03/25/24 @ 11:35 by Margarito Vasquez MD) Benzodiazepine abuse Presence of intrauterine contraceptive device (IUD) Paragard IUD placed 12/01/23 History of cervical 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 Vanessa Bryan MD History of calculus of kidney during (12/19/16) History of substance abuse (12/19/16) History of acute pyelonephritis Surgical History EGD w/Bx for H.Pylori (07/29/08) [facility] Cystoscopy (01/05/18) [facility] Urology with R ureteral stent placement Family History Father , OD at age 42. Substance abuse Essential hypertension Mother Mental disorder Bipolar d/o Neoplasm small cell neuroendocrine carcinoma Sister Substance abuse Mental disorder Bipolar d/o Brother Substance abuse Mental disorder Bipolar d/o Brother Substance abuse Mental disorder Bipolar d/o Grandmother Neoplasm Breast CA Social History Smoking/Tobacco Use Status: Current every day Tobacco Type: cigarettes and e-cigarettes Tobacco: How many years used: 10 Quit status: has quit before Counseling given: provider counseling Smoking risk assessment performed?: Yes Alcohol Intake: current Alcohol Intake frequency: 3 or more drinks per day Alcohol type: beer, wine and hard liquor Details: Decided to quit drinking. Stopped 01/2019 Drug use: Never Substance use type: marijuana Adopted: No Foster care: No Household members: significant other and children Housing: apartment Number of Children: 2 current occupation: [employer] Pets and animals: Yes (1 dog) What type of physical activity do you participate in: regular exercise Duration: other Details: cleaning Frequency: daily Do you feel safe at home: Yes Do you feel safe in your relationship?: Yes Female Reproductive History Menstrual Duration of menses: 6-7 days control method: copper IUCD History History 2 Para 2 Hx # Term Pregnancies 2 Multiple births 0 Hx # Pregnancies 0 Ectopic pregnancies 0 AB induced 0 Hx Number of Living Children 2 AB spontaneous 0 Past Pregnancies Del. Date GA/Weeks # Preg Succ Route Wgt Sex Labor Lgth Anesthesia Location [facility] 11/20/16 40 vaginal 2920.001 g Female 9 hours regional 12/22/18 40 No vaginal 3685.438 g Female Vale Bauer CNM Delivery Date: 11/20/16 Last Updated by: Vale Bauer Delivered at [place]
[2024-03-25 11:07] VITALS: BP 112/67; PULSE 55; RESP 14; TEMP 36.4; O2SAT 97
== END 2024-03-25 11:39 | disposition home or self-care (01) ==
PROVIDERS: Emergency Provider Emergency Medicine; PCP Student in an Organized Health Care Education/Training Program
DX: R22.31 Localized swelling, mass and lump, right upper limb (principal); F17.290 Nicotine dependence, other tobacco product, uncomplicated; Z79.01 Long term (current) use of anticoagulants; F17.210 Nicotine dependence, cigarettes, uncomplicated
CPT/HCPCS: 99284; 93971; 99283

== ENCOUNTER 2024-05-27 06:39 | Emergency (ER) | payer BC, SELFPAY ==
--- NOTE | 2024-05-27 09:00 | W.ED.GENAD ---
Discharge Plan Disposition Patient Disposition: Left Without Being Seen Discharge Details Chief Complaint: DrugWithdr/MAT Primary Care Provider: Randolph Harvey ED Provider: Emili Ferriera Home Meds and New Rx's Prescriptions: No Action sertraline 50 mg tablet 100 mg PO HS Patient Comments: TAKE ONE TABLET BY MOUTH EVERY DAY WITH 25MG TABLET FOR A TOTAL DAILY DOSE OF 75MG clonidine HCl 0.1 mg tablet 0.1 mg PO DAILY PRN Patient Comments: TAKE ONE TABLET BY MOUTH EVERY 6 HOURS NEEDED FOR ANXIETY OR WITHDRAWAL SYMPTOMS MAY TAKE 2 TABLETS AT BEDTIME FOR SLEEP AND ANXIETY disulfiram 250 mg tablet 250 mg PO DAILY Patient Comments: TAKE ONE TABLET BY MOUTH EVERY DAY lisdexamfetamine 50 mg capsule 40 mg PO DAILY Patient Comments: TAKE ONE CAPSULE BY MOUTH EVERY DAY multivitamin [Multiple Vitamins] Tablet 1 tab PO QAM Qty: 30 0RF HPI General Date/Time Provider Initiated Documentation: 05/27/24 09:00. HPI Narrative: This is a 33-year-old female patient who presented to the emergency department today requesting benzodiazepines for detox from alcohol, stated to triage nurse last drink 1 hour prior to arrival. The patient was triaged and roomed, but unfortunately left the hospital prior to this provider being able to evaluate her. No interventions or evaluations performed during this visit. Emili Ferreira MD Related Data Home Medications ?Medication ?Instructions ?Recorded ?Confirmed sertraline 50 mg tablet 100 mg PO HS 02/02/24 03/25/24 disulfiram 250 mg tablet 250 mg PO DAILY 02/09/24 03/25/24 lisdexamfetamine 50 mg capsule 40 mg PO DAILY 02/10/24 03/25/24 multivitamin (Multiple Vitamins 1 tab PO QAM #30 tabs 02/12/24 03/25/24 tablet) clonidine HCl 0.1 mg tablet 0.1 mg PO DAILY PRN 03/17/24 03/25/24 Previous Rx's ?Medication ?Instructions ?Recorded multivitamin (Multiple Vitamins 1 tab PO QAM #30 tabs 02/12/24 tablet) Allergies Allergy/AdvReac Type Severity Reaction Status Date / Time Penicillins AdvReac Intermediate Hives Verified 03/24/24 15:16 General LETITIA: 3 Medical Decision Making Quality:SDOH Health Related Social Needs: Health related social needs housing instability, housed, with risk of homelessness(Z59.811) Health related social needs details FLOR PFSH All Active Problems (Updated 04/25/24 @ 00:05 by MICHAEL GARBER) Smoker (Acute) Alcoholic hepatitis (Chronic) Alcohol use disorder, severe, dependence (Chronic) Herpes simplex type 1 infection (Acute 12/19/16) Eczema (Chronic) ADHD (attention deficit hyperactivity disorder), combined type (Chronic) Generalized anxiety disorder (Chronic) Depression (Acute) Medical History (Updated 04/25/24 @ 00:05 by MICHAEL GARBER) Benzodiazepine abuse Presence of intrauterine contraceptive device (IUD) Paragard IUD placed 12/01/23 History of cervical dysplasia December 2022: LSIL/HPV+ -->[place]: pending January 2022: colp --> CIN1 October 2021: LSIL/No HPV October 2020: Normal pap/No HPV Apr 2019: Normal pap/Neg HPV Apr 2018: ASCUS/HPV+ Neoplasm of uncertain behavior, unspecified new pt visit at [facility] Derm 05/24/19. Vanessa Bryan MD History of calculus of kidney during (12/19/16) History of substance abuse (12/19/16) History of acute pyelonephritis Surgical History EGD w/Bx for H.Pylori (07/29/08) [facility] Cystoscopy (01/05/18) [facility] [place] with R ureteral stent placement Family History Father , OD at age 42. Substance abuse Essential hypertension Mother Mental disorder Bipolar d/o Neoplasm small cell neuroendocrine carcinoma Sister Substance abuse Mental disorder Bipolar d/o Brother Substance abuse Mental disorder Bipolar d/o Brother Substance abuse Mental disorder Bipolar d/o Grandmother Neoplasm Breast CA Social History Smoking/Tobacco Use Status: Current every day Tobacco Type: cigarettes and e-cigarettes Tobacco: How many years used: 10 Quit status: has quit before Counseling given: provider counseling Smoking risk assessment performed?: Yes Alcohol Intake: current Alcohol Intake frequency: 3 or more drinks per day Alcohol type: beer, wine and hard liquor Details: Decided to quit drinking. Stopped 01/2019 Drug use: Never Substance use type: marijuana Adopted: No Foster care: No Household members: significant other and children Housing: apartment Number of Children: 2 current occupation: [employer] Pets and animals: Yes (1 dog) What type of physical activity do you participate in: regular exercise Duration: other Details: cleaning Frequency: daily Do you feel safe at home: Yes Do you feel safe in your relationship?: Yes Female Reproductive History Menstrual Duration of menses: 6-7 days control method: copper IUCD History History 2 Para 2 Hx # Term Pregnancies 2 Multiple births 0 Hx # Pregnancies 0 Ectopic pregnancies 0 AB induced 0 Hx Number of Living Children 2 AB spontaneous 0 Past Pregnancies Del. Date GA/Weeks # Preg Succ Route Wgt Sex Labor Lgth Anesthesia Location [facility] 11/20/16 40 vaginal 2920.001 g Female 9 hours regional 12/22/18 40 No vaginal 3685.438 g Female Vale Bauer CNM Delivery Date: 11/20/16 Last Updated by: Vale Bauer Delivered at [place]
--- NOTE | 2024-05-27 09:01 | NUR.NOTE ---
Nursing Note:Pt here for 5 minutes before she was found standing in the ED at the corner. She asked if she should come back. Stated I can just go home and drink and come back later. I told her that if she wanted to leave, she was free to do so, but if she wanted to wait since she was already here, our provider would be right with her. She then stated Its fine, I will ask Vini. She then approached Dr. Pham and said the same thing to him, stating that it appears as though we were very busy and she didn't want to have to keep waiting. Dr Pham told her that it was not that busy and we would be happy to see her if she wanted to wait but it was her choice. She then grabbed her belongings and left the ED.
== END 2024-05-27 09:23 | disposition left against medical advice (07) ==
PROVIDERS: Emergency Provider Emergency Medicine; PCP Student in an Organized Health Care Education/Training Program
DX: Z53.21 Procedure and treatment not carried out due to patient leaving prior to being seen by health care provider (principal)

== ENCOUNTER 2024-05-27 07:50 | Emergency (ER) | payer BC, SELFPAY ==
--- NOTE | 2024-05-27 09:06 | ED.PROG_ITS ---
Date of service: 05/27/24 Time of Service: 08:10 Medical Decision Making 33-year-old female presenting to emergency department for treatment of alcohol abuse. Patient had previously left without being seen and returned for further evaluation. Patient walked into provider area and began to berate physicians an d staff regarding her perception that we were not working hard enough and fast enough. Patient entered into area of physician documentation and patient care. Patient was asked to please step away from this area and return to her room as this is where we are discussing and documenting personal patient information and providing individual care to other patients. Patient verbally escalated and ref used to leave area. I informed her that I would need to call our security team and/or the police if she refused to leave the physician documentation area. Patient verbalized that she is leaving the department again. Patient left without being seen as she left before an assessment by a provider could be completed. Of note her vital signs were taken upon initial triage noted to be nontachycardic nontachypneic not hypoxic afebrile with normal oxygen saturation. Patient was seen ambulatory of her own volition without evidence of ataxia. During my brief interaction with her, the patient had normal speech without slurring of words. Patient had no external signs of trauma. Quality:SDOH Health Related Social Needs: Health related social needs housing instability, house d, with risk of homelessness(Z59.811) Health related social needs details FLOR Discharge Plan Discharge Details Primary Care Provider: Randolph Harvey ED Provider: Zaki Deutsch Home Meds and New Rx's Prescriptions: No Action sertraline 50 mg tablet 100 mg PO HS Patient Comments: TAKE ONE TABLET BY MOUTH EVERY DAY WITH 25MG TABLET FOR A TOTAL DAILY DOSE OF 75MG clonidine HCl 0.1 mg tablet 0.1 mg PO DAILY PRN Patient Comments: TAKE ONE TABLET BY MOUTH EVERY 6 HOURS NEEDED FOR ANXIETY OR WITHDRAWAL SYMPTOMS MAY TAKE 2 TABLETS AT BEDTIME FOR SLEEP AND ANXIETY disulfiram 250 mg tablet 250 mg PO DAILY Patient Comments: TAKE ONE TABLET BY MOUTH EVERY DAY lisdexamfetamine 50 mg capsule 40 mg PO DAILY Patient Comments: TAKE ONE CAPSULE BY MOUTH EVERY DAY multivitamin [Multiple Vitamins] Tablet 1 tab PO QAM Qty: 30 0RF
== END 2024-05-27 09:23 | disposition left against medical advice (07) ==
LOC: ER 09:07
PROVIDERS: Emergency Provider Emergency Medicine; PCP Student in an Organized Health Care Education/Training Program
DX: Z53.21 Procedure and treatment not carried out due to patient leaving prior to being seen by health care provider (principal)
CPT/HCPCS: 00123

== ENCOUNTER 2024-05-27 13:23 | Emergency (ER) | payer BC, SELFPAY ==
[2024-05-27 13:26] VITALS: BP 142/88; PULSE 90; RESP 14; TEMP 36.6; O2SAT 99
--- NOTE | 2024-05-27 13:47 | W.EDPROG ---
Date of service: 05/27/24 Time of Service: 13:47 Medical Decision Making Patient registered endorsing desire to detox from alcohol and endorses drinking a white claw 1 hour before arrival, vital signs were obtained however patient left before being seen. Patient was seen by nursing staff walking through parking lot downhill away from the hospital. Quality:SDOH Health Related Social Needs: Health related social needs housing instability, housed, with risk of homelessness(Z59.811) Health related social needs details FLOR Discharge Plan Discharge Details Chief Complaint: ETOHWithdr Primary Care Provider: Randolph Harvey ED Provider: Zaki Deutsch [place] Meds and New Rx's Prescriptions: No Action sertraline 50 mg tablet 100 mg PO HS Patient Comments: TAKE ONE TABLET BY MOUTH EVERY DAY WITH 25MG TABLET FOR A TOTAL DAILY DOSE OF 75MG clonidine HCl 0.1 mg tablet 0.1 mg PO DAILY PRN Patient Comments: TAKE ONE TABLET BY MOUTH EVERY 6 HOURS NEEDED FOR ANXIETY OR WITHDRAWAL SYMPTOMS MAY TAKE 2 TABLETS AT BEDTIME FOR SLEEP AND ANXIETY disulfiram 250 mg tablet 250 mg PO DAILY Patient Comments: TAKE ONE TABLET BY MOUTH EVERY DAY lisdexamfetamine 50 mg capsule 40 mg PO DAILY Patient Comments: TAKE ONE CAPSULE BY MOUTH EVERY DAY multivitamin [Multiple Vitamins] Tablet 1 tab PO QAM Qty: 30 0RF
--- OUTSIDE RECORDS SUMMARY | 2024-05-27 14:02 | XMS_ITS | Encounter Summary ---
Author Organization [facility] Address [address] [place] [address] Care Team Providers Care Web Services Professional Name Role Phone Margarito Curry MD Primary Care Provider [phone] Encounter Details Date Type Department Care Team (Late st Contact Info) Description 12/02/2023 Lab Requisition [facility] Pathology & Laboratory Medicine - [facility] [address] [place] [address] Zeny Clemente MD [address] [place] [phone] Encounter for screening for infections with [...] Imaging System with Manual Evaluation 12/08/2023 11:46 [facility] Specimen Adequacy Satisfactory for Evaluation - transformation zone component present 12/08/2023 11:46 [facility] General Categorization Epithelial Cell Abnormality 12/08/2023 11:46 [facility] Descriptive Diagnosis Squamous Cell Abnormality - Low grade squamous intraepithelial lesion (LSIL). 12/08/2023 11:46 [facility] Educational Comments [facility] recommends following the ASCCP's management guidelines which may be found at www.asccp.org 12/08/2023 11:46 [facility] Attestation By the signature below, the attending physician certifies that they have personally conducted a gross and/or microscopic examination of the described specimens and rendered or confirmed the above diagnosis. 12/08/2023 11:46 [facility] at 1146 Clinical History See below 12/08/19 11:46 [facility] Performing Lab [facility] 12/08/2023 11:46 [facility] Scanned Images 12/08/2023 11:46 [facility] Pap Test CERVIX UTERI STRUCTURE / Unknown 12/01/2023 10:25 EDT 12/02/2023 13:35 EDT Zeny Clemente MD PATHOLOGY ORDERABLES [facility] [address] [place], [place] [id number] documented in this encounter Visit Diagnoses Diagnosis Encounter for screening for infections with a predominantly sexual mode of transmission documented in this encounter Care Teams Web Services Professional Relationship Specialty Start Date End Date Margarito Curry MD [address] [place] [address] PCP - General 09/18/21 documented as of this encounter
--- OUTSIDE RECORDS SUMMARY | 2024-05-27 14:02 | XMS_ITS | Encounter Summary ---
Author Organization [facility] Address [address] [place] [address] Care Team Providers Care Full Decator Operator Name Role Phone Margarito Curry MD Primary Care Provider Encounter Details Date Type Department Care Team (Late st Contact Info) Description 12/01/2023 Lab Requisition [facility] Pathology & Laboratory Medicine - [facility] [address] [place], [place] [id number] Outr Resulting Lab, Provider Social History Tobacco [...] gonorrhoeae Result Negative Negative 12/02/2023 13:35 EDT [facility] Chlamydia trachomatis Result Negative Negative 12/02/2023 13:35 EDT [facility] Pap Test CERVIX UTERI STRUCTURE / Unknown 12/01/2023 10:25 EDT 12/02/2023 9:32 EDT Provider Outr Resulting Lab MICROBIOLOGY - GENERAL ORDERABLES [facility] [address] [place] [address] documented in this encounter Visit Diagnoses Not on filedocumented in this encounter Care Teams Full Decator Operator Relationship Specialty Start Date End Date Margarito Curry MD [facility] [place] [place] [address] PCP - General 09/18/21 documented as of this encounter
--- OUTSIDE RECORDS SUMMARY | 2024-05-27 14:02 | XMS_ITS | Encounter Summary ---
Author Organization [facility] Address [address] [place] [address] Care Team Providers Care It Consulting Manager Name Role Phone Margarito Curry MD Primary Care Provider [phone] Encounter Details Date Type Department Care Team (Late st Contact Info) Description 12/31/2023 Lab Requisition [facility] Pathology & Laboratory Medicine - [facility] [address] [place] [address] Zeny Clemente MD [address] [place] [phone] Encounter for other general examination Social [...] management options, if applicable. 01/02/2024 11:12 EDT [facility] Final Diagnosis A. CERVIX, 7 O' CLOCK, CYTOBRUSH: - Superficial fragments of benign squamous mucosa and endocervical glands. 01/02/2024 11:12 EDT [facility] Diagnosis Comment The specimen is markedly fragmented and poorly preserved, limiting evaluation. No definitive dysplasia is identified. Deeper sections have been examined. 01/02/2024 11:12 T [facility] Attestation There was significant resident/fellow involvement in the diagnostic evaluation of this case. By the signature below, the attending physician certifies that they have personally conducted a gross and/or microscopic examination of the described specimens and rendered or confirmed the above diagnosis. 01/02/2024 11:12 [facility] at 1112 Clinical History LSIL 01/02/2024 11:12 [facility] Gross Description A. Received in formalin on a Histologic SFT-1000 device labelled with proper patient identification (initials C, E) and 7 o'clock cervix is an aggregate of transparent su mucus and admixed su wispy tissue fragments (0.6 x 0.5 x 0.1 cm). Entirely submitted in A1. Pao Vallecillo 12/31/2023 9:10 01/02/2024 11:12 T [facility] Resident/Vikas w: Kary Javier MD 01/02/2024 11:12 T [facility] Performing Lab [facility] 01/02/2024 11:12 [facility] Scanned Images 01/02/2024 11:12 [facility] Tissue CERVIX UTERI STRUCTURE / Unknown 12/30/2023 15:20 EDT 12/31/2023 8:16 EDT Zeny Clemente MD PATHOLOGY ORDERABLES [facility] [address] [place] [address] documented in this encounter Visit Diagnoses Diagnosis Encounter for other general examination documented in this encounter Care Teams It Consulting Manager Relationship Specialty Start Date End Date Margarito Curry MD [address] [place] [address] PCP - General 09/18/21 documented as of this encounter
--- OUTSIDE RECORDS SUMMARY | 2024-05-27 14:02 | XMS_ITS | Encounter Summary ---
Author Organization [facility] Address [address] [place] [address] Care Team Providers Care Mechanic Field Service Name Role Phone Margarito Curry MD Primary Care Provider [phone] Encounter Details Date Type Department Care Team (Late st Contact Info) Description 02/02/2024 Lab Requisition [facility] Pathology & Laboratory Medicine - [facility] [address] [place], [place] [phone] Outr Resulting Lab, Provider Social History Tobacco [...] 2.8 - 5.3 pg/mL 02/02/2024 22:41 EDT [facility] Blood VENOUS BLOOD / Unknown 02/02/2024 10:30 EDT 02/02/2024 22:07 EDT Provider Outr Resulting Lab CHEMISTRY & BLOOD GAS ORDERABLES Performing Organization Address City/[facility]/ZIP Co de Phone Number [facility] [address] [place], [place] [address] * T3, TOTAL (02/02/2024 10:30 EDT) T3, Total 150 97 - 169 ng/dL 02/02/2024 22:56 EDT [facility] Blood VENOUS BLOOD / Unknown 02/02/2024 10:30 EDT 02/02/2024 22:07 EDT Provider Outr Resulting Lab CHEMISTRY & BLOOD GAS ORDERABLES Performing Organization Address [facility] de Phone Number [facility] [address] [place] [address] documented in this encounter Visit Diagnoses Not on filedocumented in this encounter Care Teams Mechanic Field Service Relationship Specialty Start Date End Date Margarito Curry MD [facility] [place] [place] [address] PCP - General 09/18/21 documented as of this encounter
--- OUTSIDE RECORDS SUMMARY | 2024-05-27 14:02 | XMS_ITS | Clinical Summary ---
Author Organization [facility] Address [address] [place] [address] Care Team Providers Care Bilingual Account Manager Name Role Phone Margarito Curry MD Primary Care Provider [phone] Allergies Active Allergy Reactions Criticality Noted Date Comments Buspirone Other (See Comments) 09/30/2021 AMS Penicillins 04/08/2011 Medications Medication Sig Dispensed Refills Start Date End Date Status diazePAM (VALIUM) 10 mg tablet Take 10 mg p.o. 4 times daily for 48 hours then taper as per bridge program protocol. 16 Tablet 09/30/2021 Active Medical History Medical History Date Comments Anxiety [...] - 19+ 3-dose series) 2011 COVID-19 Vaccine (2022-24 season) 2023 Hepatitis C Screen Completed 10/31/2023, 11/02/2021 Procedures Procedure Name Priority Date/Time Associated Diagnosis Comments HEPATITIS C AB W REFLEX TO HCV RNA BY PCR Routine 10/31/2023 16:55 EDT from Last 3 Months or Most Recently Relevant to Health Maintenance Results * HEPATITIS C AB W REFLEX TO HCV RNA BY PCR (10/31/2023 16:55 EDT) Hep C Antibody Negative Negative 11/03/2023 10:39 EDT [facility] Blood VENOUS BLOOD / Unknown 10/31/2023 16:55 EDT 11/01/2023 21:34 EDT Provider Outr Resulting Lab CHEMISTRY & BLOOD GAS ORDERABLES [facility] [address] [place] [address] from Last 3 Months or Most Recently Relevant to Health Maintenance Care Teams Bilingual Account Manager Relationship Specialty Start Date End Date Margarito Curry MD [facility] [address] [facility], [place] [phone] PCP - General 09/18/21
--- OUTSIDE RECORDS SUMMARY | 2024-05-27 14:02 | XMS_ITS | Referral Summary ---
Author Organization [facility] Address [address] [place] [address] Care Team Providers Care Kiln Labourer Name Role Phone Margarito Curry MD Primary Care Provider [phone] Allergies Active Allergy Reactions Criticality Noted Date [...] C Antibody Negative Negative 11/03/2023 10:39 EDT [facility] Blood VENOUS BLOOD / Unknown 10/31/2023 16:55 EDT 11/01/2023 21:34 EDT Provider Outr Resulting Lab CHEMISTRY & BLOOD GAS ORDERABLES [facility] [address] [place] [address] from Last 3 Months or Most Recently Relevant to Health Maintenance Care Teams Kiln Labourer Relationship Specialty Start Date End Date Margarito Curry MD [facility] [address] [place], [place] [phone] PCP - General 09/18/21
--- OUTSIDE RECORDS SUMMARY | 2024-05-27 14:03 | XMS_ITS | Encounter Summary ---
Author Organization [facility] Address [address] [place] [address] Care Team Providers Care Egg Breaker Name Role Phone Margarito Curry MD Primary Care Provider [phone] Encounter Details Date Type Department Care Team (Late st Contact Info) Description 07/22/2022 Lab Requisition [facility] Pathology & Laboratory Medicine - [facility] [address] [place], [place] [phone] Outr Resulting Lab, Provider Social History Tobacco [...] Result (FLARES) Positive(A) Negative 07/23/2022 1:36 EST [facility] FLU B RNA Result (FLBRES) Negative Negative 07/23/2022 1:36 EST [facility] RSV RNA Result (RSVRES) Negative Negative 07/23/2022 1:36 EST [facility] Swab ENTIRE NASOPHARYNX / Unknown 07/22/2022 12:16 EST 07/22/2022 22:23 EST Provider Outr Resulting Lab MICROBIOLOGY - GENERAL ORDERABLES Performing Organization Address City/State/[facility] Co de Phone Number [facility] [address] [place] [address] documented in this encounter Visit Diagnoses Not on filedocumented in this encounter Additional Health Concerns Infection Onset Date Last Indicated Resolved Time Influenza 07/22/2022 07/22/2022 08/01/2022 22:1 5 EST documented as of this encounter Care Teams Egg Breaker Relationship Specialty Start Date End Date Margarito Curry [place] [place] [address] PCP - General 09/18/21 documented as of this encounter
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
--- OUTSIDE RECORDS SUMMARY | 2024-05-27 14:03 | XMS_ITS | Encounter Summary ---
Author Organization [facility] Address [address] [place] [address] Care Team Providers Care Home Energy Consultant Name Role Phone Cathy Diaz MD Primary Care Provider [phone] Encounter Details Date Type Department Care Team (Late st Contact Info) Description 04/28/2019 Results Only [facility] [phone] [address] Social History Tobacco Use Types [...] ? MALIA LEDESMA ? Accession #: ? [id number] ? : ? 1990 (Age: 28) ??F ?Collect Date: ? 04/28/2019 ? Location: ? [facility] ? Receive Date: ? 04/29/2019 ? Provider: AGGIE MCCAIN CNM Copy to: TAMICA ELLIOTT ORNAMENTAL RAIL INSTALLER ? Final Report SPECIMEN ADEQUACY ? Satisfactory [...] types 16,18,31,33,35, 39,45,51,52,56,58, 59,66, and 68 by electronic equipment trades worker mediated amplification. Comments Document reviewed and electronically signed by: ? System Interface ? Report date: 05/05/2019 By the signature above, the attending physician certifies that he/she has personally conducted a gross and/or microscopic examination of the described specimens and rendered or confirmed the above diagnosis. End of Report [facility] 04/28/2019 04/29/2019 Aggie Mccain [facility] PATHOLOGY ORDERABLES [facility] [address] [place] [address] documented in this encounter Visit Diagnoses Not on filedocumented in this encounter Care Teams Home Energy Consultant Relationship Specialty Start Date End Date Cathy Diaz MD [address] [place] [phone] PCP - General 01/05/09 09/17/21 documented as of this encounter
--- OUTSIDE RECORDS SUMMARY | 2024-05-27 14:03 | XMS_ITS | Encounter Summary ---
Author Organization [facility] Address [address] [place] [address] Care Team Providers Care Road Cutter Name Role Phone Margarito Curry MD Primary Care Provider [phone] Encounter Details Date Type Department Care Team (Late st Contact Info) Description 11/19/2022 Lab Requisition [facility] Pathology & Laboratory Medicine - [facility] [address] [place] [address] Zeny Clemente MD [address] [place] [phone] Encounter for other general examination Social [...] 16, PCR Negative Negative 12/05/2022 15:11 EDT [facility] HPV18/45 RNA (HPV18/45) Negative Negative 12/05/2022 15:11 EDT [facility] Papanicolaou smear specimen (specimen) CERVIX UTERI STRUCTURE / Unknown 11/19/2022 13:10 EDT 12/02/2022 10:05 EDT Zeny Clemente MD MICROBIOLOGY - GENER AL ORDERABLES Performing Organization Address City/[facility] Co de Phone Number [facility] [address] [place] [address] * (ABNORMAL) HUMAN PAPILLOMAVIRUS (HPV) DETECTION-HIGH RISK TYPES (11/19/2022 13:10 EDT) HPV other High Risk types, PCR Positive( A) Negative 12/05/2022 23:41 EDT [facility] Comment:E6 OR E7 mRNA from o ne or more types of HPV types 16,18,31,33,35,39,45,51,52,56,58,59,66, and 68 is detected by vice president of product marketing mediated amplification. High and intermediate risk HPV types are associated with most squamous intraepithelial lesions and cervical cancers. Papanicolaou smear specimen (specimen) CERVIX UTERI STRUCTURE / Unknown 11/19/2022 13:10 EDT 12/02/2022 10:05 EDT Zeny Clemente MD MICROBIOLOGY - GENER AL ORDERABLES Performing Organization Address [facility] Co de Phone Number [facility] [address] [place] [address] * PAP TEST (11/19/2022 13:10 EDT) Specimens A. Cervix and/or Endocervix , ThinPrep Imaging System with Manual Evaluation 12/05/2022 23:41 [facility] Specimen Adequacy Satisfactory for Evaluation - transformation zone component present 12/05/2022 23:41 [facility] General Categorization Epithelial Cell Abnormality 12/05/2022 23:41 [facility] Descriptive Diagnosis Squamous Cell Abnormality - Low grade squamous intraepithelial lesion (LSIL). 12/05/2022 23:41 [facility] Educational Comments [facility] recommends following the ASCCP's management guidelines which may be found at www.asccp.org 12/05/2022 23:41 [facility] Attestation By the signature below, the attending physician certifies that they have personally conducted a gross and/or microscopic examination of the described specimens and rendered or confirmed the above diagnosis. 12/05/2022 23:41 [facility] at 2341 Clinical History See below 12/06/19 23:41 [facility] HPV The result for the Human Papillomavirus (HPV) Detection-High Risk Types is Positive . E6 OR E7 mRNA from one or more types of HPV types 16,18,31,33,35,39 ,45,51,52,56,58,5 9,66, and 68 is detected by vice president of product marketing mediated amplification. High and intermediate risk HPV types are associated with most squamous intraepithelial lesions and cervical cancers. Testing was performed on specimen [id number] and was resulted on 12/03/2022 1540 EDT by LENA, LAB INSTRUMENT RESULTS IN 12/05/2022 23:41 [facility] Genotyping 16 & 18/45 The results for the HPV Genotypes 16 and 18/45 are Negative for the HPV16 RNA and Negative for the HPV18/45 RNA (HPV18/45). Testing was performed on specimen [id number] and was resulted on 12/05/2022 1511 EDT by LENA, LAB INSTRUMENT RESULTS IN 12/05/2022 23:41 [facility] Performing Lab [facility] 12/05/2022 23:41 EDT [facility] Scanned Images 12/05/2022 23:41 EDT [facility] Papanicolaou smear specimen (specimen) CERVIX UTERI STRUCTURE / Unknown 11/19/2022 13:10 EDT 11/22/2022 8:18 EDT Zeny Clemente MD PATHOLOGY ORDERABLES Performing Organization Address City/[facility] Co de Phone Number [facility] [address] [place] [address] * CHLAMYDIA/N. GONORRHOEAE AMPLIFIED RNA, THINPREP (11/19/2022 13:10 EDT) Neisseria gonorrhoeae Result Negative Negative 11/21/2022 14:36 EDT [facility] Chlamydia trachomatis Result Negative Negative 11/21/2022 14:36 EDT [facility] Papanicolaou smear specimen (specimen) CERVIX UTERI STRUCTURE / Unknown 11/19/2022 13:10 EDT 11/21/2022 8:34 EDT Zeny Clemente MD MICROBIOLOGY - GENER AL ORDERABLES Performing Organization Address [facility] Co de Phone Number [facility] [address] [place] [address] documented in this encounter Visit Diagnoses Diagnosis Encounter for other general examination documented in this encounter Care Teams Road Cutter Relationship Specialty Start Date End Date Margarito Curry MD [place] [address] PCP - General 09/18/21 documented as of this encounter
--- OUTSIDE RECORDS SUMMARY | 2024-05-27 14:03 | XMS_ITS | Encounter Summary ---
Author Organization [facility] Address [address] [place] [address] Care Team Providers Care Ear Nose Throat Surgeon Name Role Phone Cathy Waldrop MD Primary Care Provider [phone] Encounter Details Date Type Department Care Team (Late st Contact Info) Description 04/24/2007 Results Only [facility] [address] [place] [address] Cathy Waldrop MD [address] [place] [phone] Social History Tobacco Use Types Packs/Day [...] Result No Neisseria gonorrhoeae DNA detected by airport refueling handler mediated amplification. [facility] Report Status Final [id number] [facility] Specimen Description Cervix [facility] 04/24/2007 23:2 4 EDT 04/24/2007 23:24 EDT Cathy Waldrop MD MICROBIOLOGY - GENER AL ORDERABLES Performing Organization Address [facility] de Phone Number [facility] [address] [place] [address] * CHLAMYDIA TRACHOMATIS AMPLIFIED PROBE (04/24/2007 23:24 EDT) Specimen Description Cervix [facility] Result No Chlamydia trachomatis DNA detected by airport refueling handler mediated amplification. [facility] Report Status Final [id number] [facility] 04/24/2007 23:2 4 EDT 04/24/2007 23:24 EDT Cathy Waldrop MD MICROBIOLOGY - GENER AL ORDERABLES Performing Organization Address [facility] de Phone Number [facility] [address] [place] [address] * CYTOPATHOLOGY (04/24/2007 0:00 EDT) Pathology Report: CYTOPATHOLOGY REPORT Reports generated via electronic interface contain original data; however they are lacking the format of the original report. Caution should be taken when reading/interpreti ng unformatted reports. Name: ? MALIA SCHAEFER ? Accession #: ? [id number] : ? 1990 (Age: 16) ??F ?Collect Date: ? 04/24/2007 Location: ? [facility] ? Receive Date: ? 04/27/2007 Provider: ?CATHY WALDROP MD Copy to: ? Specimen/Source: ?ThinPrep Pap Test, Cervix/Endocervix, processed on SinoHub ThinPrep Imaging System, with manual evaluation Last [...] Waldrop MD PATHOLOGY ORDERABLES Performing Organization Address City/State/[facility] Co de Phone Number [facility] [address] [place] [address] documented in this encounter Visit Diagnoses Not on filedocumented in this encounter Care Teams Ear Nose Throat Surgeon Relationship Specialty Start Date End Date Cathy Waldrop MD [address] [place] [phone] PCP - General 01/05/09 09/17/21 documented as of this encounter
--- OUTSIDE RECORDS SUMMARY | 2024-05-27 14:03 | XMS_ITS | Encounter Summary ---
Author Organization [facility] Address [address] [place] [address] Care Team Providers Care Offset Lithographic Press Operator Name Role Phone Cathy Diaz MD Primary Care Provider [phone] Margarito Curry MD Primary Care Provider Encounter Details Date Type Department Care Team (Late st Contact Info) Description 05/17/2021 Lab Requisition [facility] Pathology & Laboratory Medicine - [address] [phone] Outr Resulting Lab, Provider Social History Tobacco [...] Syphilis Serology Negative Negative 05/18/2021 10:14 EDT [facility] Blood VENOUS BLOOD / Unknown 05/16/2021 11:30 EDT 05/17/2021 16:14 EDT Provider Outr Resulting Lab IMMUNOLOGY A ND SEROLOGY ORDERABLES [facility] [address] [place] [address] documented in this encounter Visit Diagnoses Not on filedocumented in this encounter Additional Health Concerns Infection Onset Date Last Indicated Resolved Time Influenza 07/22/2022 07/22/2022 08/01/2022 22:1 5 EST documented as of this encounter Care Teams Offset Lithographic Press Operator Relationship Specialty Start Date End Date Cathy Diaz MD [address] [place] [phone] PCP - General 01/05/09 09/17/21 Margarito Curry MD [address] [place] [address] [place] [address] PCP - General 09/18/21 documented as of this encounter
--- OUTSIDE RECORDS SUMMARY | 2024-05-27 14:03 | XMS_ITS | Encounter Summary ---
Author Organization [facility] Address [address] [place] [address] Care Team Providers Care Insurance Commissioner Name Role Phone Cathy Diaz MD Primary Care Provider [phone] Margarito Curry MD Primary Care Provider [phone] Encounter Details Date Type Department Care Team (Late st Contact Info) Description 05/17/2021 Lab Requisition [facility] Pathology & Laboratory Medicine - [address] [id number] Outr Resulting Lab, Provider Social History Tobacco [...] Surface Ag Negative Negative 05/18/2021 10:10 EDT [facility] Blood VENOUS BLOOD / Unknown 05/16/2021 11:30 EDT 05/17/2021 16:14 EDT Provider Outr Resulting Lab CHEMISTRY & BLOOD GAS ORDERABLES [facility] [address] [place] [address] documented in this encounter Visit Diagnoses Not on filedocumented in this encounter Additional Health Concerns Infection Onset Date Last Indicated Resolved Time Influenza 07/22/2022 07/22/2022 08/01/2022 22:1 5 EST documented as of this encounter Care Teams Insurance Commissioner Relationship Specialty Start Date End Date Cathy Diaz MD [address] [place] [phone] PCP - General 01/05/09 09/17/21 Margarito Curry MD [address] [place] [address] [place] [address] PCP - General 09/18/21 documented as of this encounter
--- OUTSIDE RECORDS SUMMARY | 2024-05-27 14:03 | XMS_ITS | Encounter Summary ---
Author Organization [facility] Address [address] [place] [address] Care Team Providers Care Sales Assistants And Salespersons Name Role Phone Unavailable Primary Care Provider Unavailabl e Encounter Details Date Type Department Care Team (Latest Contact Info) Description 08/20/2007 9:05 EST - 08/20/2007 11:59 EST Hospital Encounter [facility] - Other [address] [place] [address] Cathy Diaz MD [address] [place] [phone] Discharge Disposition: Home or Self Care [...]
--- OUTSIDE RECORDS SUMMARY | 2024-05-27 14:03 | XMS_ITS | Encounter Summary ---
Author Organization [facility] Address [address] [place] [address] Care Team Providers Care Dry Man Name Role Phone Margarito Curry MD Primary Care Provider [phone] Encounter Details Date Type Department Care Team (Late st Contact Info) Description 01/21/2023 Lab Requisition [facility] Pathology & Laboratory Medicine - [facility] [address] [place] [address] Zeny Clemente MD [address] [place] [phone] Encounter for other general examination Social [...] explore management options, if applicable. 01/23/2023 16:59 [facility] Final Diagnosis A. CERVIX, 6-7 O'CLOCK, BIOPSY: - Fragments of benign endocervix and benign squamous epithelium. B. ENDOCERVIX, CURETTAGE: - Fragments of benign endocervix. 01/23/2023 16:59 [facility] Diagnosis Comment The previous Pap test ([id number]) has been reviewed and the presence of atypical cells is confirmed. Similar abnormal cells to those seen on the Pap test are not identified in the current case. Deeper sections have been examined. 01/23/2023 16:59 [facility] Attestation By the signature below, the attending physician certifies that they have 1) personally conducted a gross and/or microscopic examination of the described specimen(s), and/or personally interpreted the results of laboratory testing of the described specimen(s), and 2) personally rendered or confirmed the above diagnosis. 01/23/2023 16:59 [facility] at 1659 Clinical History LSIL Pap/HPV + 01/23/2023 16:59 [facility] Gross Description A. Received in [...] B1. Pao Pandya 01/21/2023 14:13 01/23/2023 16:59 [facility] Performing Lab [facility] 01/23/2023 16:59 [facility] Scanned Images 01/23/2023 16:59 EDT [facility] Tissue ENTIRE ENDOCERVIX / Unknown 01/20/2023 16:08 EDT 01/21/2023 8:07 EDT Tissue specimen (specimen) ENDOCERVICAL STRUCTURE / Unknown 01/20/2023 16:08 EDT 01/21/2023 8:09 EDT Zeny Clemente MD PATHOLOGY ORDERABLES [facility] [address] [place] [address] documented in this encounter Visit Diagnoses Diagnosis Encounter for other general examination documented in this encounter Care Teams Dry Man Relationship Specialty Start Date End Date Margarito Curry MD [address] [place] [address] PCP - General 09/18/21 documented as of this encounter
--- OUTSIDE RECORDS SUMMARY | 2024-05-27 14:03 | XMS_ITS | Encounter Summary ---
Author Organization [facility] Address [address] [place] [address] Care Team Providers Care Housing Assistant Name Role Phone Margarito Curry MD Primary Care Provider [phone] Encounter Details Date Type Department Care Team (Late st Contact Info) Description 11/03/2021 Lab Requisition [facility] Pathology & Laboratory Medicine - [facility] [address] [place], [place] [phone] Outr Resulting Lab, Provider Social History Tobacco [...] Syphilis Serology Negative Negative 11/05/2021 11:59 EDT [facility] Blood VENOUS BLOOD / Unknown 11/02/2021 12:50 EDT 11/03/2021 21:52 EDT Provider Outr Resulting Lab IMMUNOLOGY A ND SEROLOGY ORDERABLES Performing Organization Address [facility] Co de Phone Number [facility] [address] [place] [address] documented in this encounter Visit Diagnoses Not on filedocumented in this encounter Additional Health Concerns Infection Onset Date Last Indicated Resolved Time Influenza 07/22/2022 07/22/2022 08/01/2022 22:1 5 EST documented as of this encounter Care Teams Housing Assistant Relationship Specialty Start Date End Date Margarito Curry MD [address] [place] [address] PCP - General 09/18/21 documented as of this encounter
--- OUTSIDE RECORDS SUMMARY | 2024-05-27 14:03 | XMS_ITS | Encounter Summary ---
Author Organization [facility] Address [address] [place] [address] Care Team Providers Care Marketing Compliance Manager Name Role Phone Cathy Diaz MD Primary Care Provider [phone] Margarito Curry MD Primary Care Provider [phone] Encounter Details Date Type Department Care Team (Late st Contact Info) Description 04/07/2020 Lab Requisition [facility] Pathology & Laboratory Medicine - [address] [phone] Outr Resulting Lab, Provider Social History Tobacco [...] gonorrhoeae Result Negative Negative 04/10/2020 14:02 EDT [facility] Chlamydia trachomatis Result Negative Negative 04/10/2020 14:02 EDT [facility] Urine URINE / Unknown 04/06/2020 1 6:30 EDT 04/07/2020 15:33 EDT Narrative [facility] - 04/10/2020 14:02 EDT A first catch urine specimen is acceptable for detection of Gonorrhea and Chlamydia, but might detect up to 10% fewer infections when compared with vaginal and endocervical swab samples. Provider Outr Resulting Lab MICROBIOLOGY - GENERAL ORDERABLES [facility] [address] [place] [address] documented in this encounter Visit Diagnoses Not on filedocumented in this encounter Additional Health Concerns Infection Onset Date Last Indicated Resolved Time Influenza 07/22/2022 07/22/2022 08/01/2022 22:1 5 EST documented as of this encounter Care Teams Marketing Compliance Manager Relationship Specialty Start Date End Date Cathy Diaz MD [address] [place] [phone] PCP - General 01/05/09 09/17/21 Margarito Curry MD [address] [place] [id number] PCP - General 09/18/21 documented as of this encounter
--- OUTSIDE RECORDS SUMMARY | 2024-05-27 14:03 | XMS_ITS | Encounter Summary ---
Author Organization [facility] Address [address] [place] [address] Care Team Providers Care Toy Mechanic Name Role Phone Cathy Diaz MD Primary Care Provider [phone] Margarito Curry MD Primary Care Provider [phone] Encounter Details Date Type Department Care Team (Late st Contact Info) Description 04/25/2020 Lab Requisition [facility] Pathology & Laboratory Medicine - [address] [phone] Outr Resulting Lab, Provider Social History Tobacco [...] Lyme Ab Negative Negative 04/26/2020 10:52 EDT [facility] Comment:New 3rd generation a ssay in use 01/26/2020 Blood VENOUS BLOOD / Unknown 04/23/2020 12:05 EDT 04/25/2020 16:40 EDT Provider Outr Resulting Lab IMMUNOLOGY A ND SEROLOGY ORDERABLES [facility] [address] [place] [address] documented in this encounter Visit Diagnoses Not on filedocumented in this encounter Additional Health Concerns Infection Onset Date Last Indicated Resolved Time Influenza 07/22/2022 07/22/2022 08/01/2022 22:1 5 EST documented as of this encounter Care Teams Toy Mechanic Relationship Specialty Start Date End Date Cathy Diaz MD [address] [place] [phone] PCP - General 01/05/09 09/17/21 Margarito Curry MD [address] [place] [address] [place] [address] PCP - General 09/18/21 documented as of this encounter
--- OUTSIDE RECORDS SUMMARY | 2024-05-27 14:03 | XMS_ITS | Encounter Summary ---
Author Organization [facility] Address [address] [place] [address] Care Team Providers Care Tyre Finisher And Examiner Name Role Phone Cathy Diaz MD Primary Care Provider [phone] Margarito Curry MD Primary Care Provider [phone] Encounter Details Date Type Department Care Team (Late st Contact Info) Description 06/21/2021 Lab Requisition [facility] Pathology & Laboratory Medicine - [address] [phone] Outr Resulting Lab, Provider Social History Tobacco [...] Outr Resulting Lab MICROBIOLOGY - GENERAL ORDERABLES [facility] [address] [place] [address] * COVID-19 TESTING (06/20/2021 10:45 EDT) COVID-19 rt-PCR Result Negative Negative 06/22/2021 10:37 EDT [facility] Comment: This test has [...] performed using the beto SARS-CoV-2 assay ([employer] on the Beto 6800 System Performing Lab Beto 6800 [facility] 06/22/2021 10:37 EDT [facility] Swab 06/20/2021 10:4 5 EDT 06/21/2021 16:48 EDT Provider Outr Resulting Lab MICROBIOLOGY - GENERAL ORDERABLES [facility] [address] [place] [address] documented in this encounter Visit Diagnoses Not on filedocumented in this encounter Additional Health Concerns Infection Onset Date Last Indicated Resolved Time Influenza 07/22/2022 07/22/2022 08/01/2022 22:1 5 EST documented as of this encounter Care Teams Tyre Finisher And Examiner Relationship Specialty Start Date End Date Cathy Diaz MD [address] [place] [phone] PCP - General 01/05/09 09/17/21 Margarito Curry MD [address] [place] [address] PCP - General 09/18/21 documented as of this encounter
--- OUTSIDE RECORDS SUMMARY | 2024-05-27 14:03 | XMS_ITS | Encounter Summary ---
Author Organization [facility] Address [address] [place] [address] Care Team Providers Care Anglesmith Helper Name Role Phone Margarito Curry MD Primary Care Provider [phone] Encounter Details Date Type Department Care Team (Late st Contact Info) Description 11/01/2023 Lab Requisition [facility] Pathology & Laboratory Medicine - [facility] [address] [place], [place] [phone] Outr Resulting Lab, Provider Social History Tobacco [...] gonorrhoeae Result Negative Negative 11/03/2023 12:58 EDT [facility] Chlamydia trachomatis Result Negative Negative 11/03/2023 12:58 EDT [facility] Swab ENDOCERVICAL STRUCTURE / Unknown 10/31/2023 16:55 EDT 11/02/2023 16:06 EDT Provider Outr Resulting Lab MICROBIOLOGY - GENERAL ORDERABLES [facility] [address] [place], [place] [address] documented in this encounter Visit Diagnoses Not on filedocumented in this encounter Care Teams Anglesmith Helper Relationship Specialty Start Date End Date Margarito Curry [place] [address] PCP - General 09/18/21 documented as of this encounter
--- OUTSIDE RECORDS SUMMARY | 2024-05-27 14:03 | XMS_ITS | Encounter Summary ---
Author Organization [facility] Address [address] [place] [address] Care Team Providers Care Glassware Maker Name Role Phone Unavailable Primary Care Provider Unavailabl e Encounter Details Date Type Department Care Team (Latest Contact Info) Description 04/24/2007 11:36 EDT - 04/24/2007 11:59 EDT Hospital Encounter [facility] - Other [address] [place] [address] Cathy Diaz MD [address] [place] [phone] Discharge Disposition: Home or Self Care [...]
--- OUTSIDE RECORDS SUMMARY | 2024-05-27 14:03 | XMS_ITS | Encounter Summary ---
Author Organization [facility] Address [address] [place] [address] Care Team Providers Care Sales Recruiting Coordinator Name Role Phone Margarito Curry MD Primary Care Provider [phone] Encounter Details Date Type Department Care Team (Late st Contact Info) Description 02/05/2022 Lab Requisition [facility] Pathology & Laboratory Medicine - [facility] [address] [place] [address] Zeny Clemente MD [address] [place] [phone] Encounter for other general examination Social [...] management options, if applicable. 02/06/2022 11:15 T [facility] Final Diagnosis A. CERVIX, BIOPSY: - Low-grade squamous intraepithelial lesion (MIGUEL 1). 02/06/2022 11:15 [facility] Attestation By the signature below, the attending physician certifies that they have 1) personally conducted a gross and/or microscopic examination of the described specimen(s), and/or personally interpreted the results of laboratory testing of the described specimen(s), and 2) personally rendered or confirmed the above diagnosis. 02/06/2022 11:15 [facility] at 1115 Clinical History LSIL Pap 02/06/2022 11:15 [facility] Gross Description A. Received in formalin labelled with proper patient identification (initials C, E) and cervical bx is an aggregate of light su mucinous material measuring 0.4 x 0.4 x 0.1 cm. Submitted entirely in A1. FRANKLIN ANDERSON(ASCP) 02/05/2022 19:37 02/06/2022 11:15 T [facility] Performing Lab [facility] 11:15 [facility] Scanned Images 02/06/2022 11:15 [facility] Tissue ENTIRE WALL OF CERVIX / Unknown 02/05/2022 11:22 EDT 02/05/2022 17:05 EDT Zeny Clemente MD PATHOLOGY ORDERABLES [facility] [address] [place] [address] documented in this encounter Visit Diagnoses Diagnosis Encounter for other general examination documented in this encounter Additional Health Concerns Infection Onset Date Last Indicated Resolved Time Influenza 07/22/2022 07/22/2022 08/01/2022 22:1 5 EST documented as of this encounter Care Teams Sales Recruiting Coordinator Relationship Specialty Start Date End Date Margarito Curry MD [address] [facility] [place] [address] PCP - General 09/18/21 documented as of this encounter
--- OUTSIDE RECORDS SUMMARY | 2024-05-27 14:03 | XMS_ITS | Encounter Summary ---
Author Organization [facility] Address [address] [place] [address] Care Team Providers Care Manager Knowledge Name Role Phone Margarito Curry MD Primary Care Provider [phone] Encounter Details Date Type Department Care Team (Late st Contact Info) Description 09/30/2021 13:00 EST - 09/30/2021 14:17 EST Emergency [facility] Emergency Department - [address] [address] Dereje Allen PA-C [address] [place] [address], [address] [place] [phone] Alcohol withdrawal syndrome without complication (HCC-CMS) (HCC) [...] Code Departure Means Destination Home or Self Shelter documented in this encounter ED Notes * Dereje Allen PA-C - 09/30/2021 1316 EST This patient received an evaluation and medical screening exam for emergent medical conditions via Telemedicine by the [facility] on 09/30/2021 Today's visit was provided through telemedicine video conferencing: The location of the patient : [facility] The location of the provider:emergency department [...] Zoom. The patient was located at the [facility] and the ED provider was located at the Emergency Department. The [facility] staff member was present for portions [...] 1303 EST Number to call per registration [phone] documented in this encounter Plan of Treatment [...] documented as of this encounter Care Teams Manager Knowledge Relationship Specialty Start Date End Date Margarito Curry MD [facility] [place] [address] PCP - General 09/18/21 documented as of this encounter
--- OUTSIDE RECORDS SUMMARY | 2024-05-27 14:03 | XMS_ITS | Encounter Summary ---
Author Organization [facility] Address [address] [place] [address] Care Team Providers Care Industrial Locomotive Operator Name Role Phone Cathy Diaz MD Primary Care Provider [phone] Margarito Curry MD Primary Care Provider [phone] Encounter Details Date Type Department Care Team (Late st Contact Info) Description 04/28/2021 Lab Requisition [facility] Pathology & Laboratory Medicine - [address] [phone] Outr Resulting Lab, Provider Social History Tobacco [...] gonorrhoeae Result Negative Negative 04/30/2021 14:06 EDT [facility] Chlamydia trachomatis Result Negative Negative 04/30/2021 14:06 EDT [facility] Swab ENTIRE VAGINA / Unknown 04/27/2021 12:40 EDT 04/29/2021 16:19 EDT Provider Outr Resulting Lab MICROBIOLOGY - GENERAL ORDERABLES [facility] [address] [place] [address] documented in this encounter Visit Diagnoses Not on filedocumented in this encounter Additional Health Concerns Infection Onset Date Last Indicated Resolved Time Influenza 07/22/2022 07/22/2022 08/01/2022 22:1 5 EST documented as of this encounter Care Teams Industrial Locomotive Operator Relationship Specialty Start Date End Date Cathy Diaz MD [address] [place] [phone] PCP - General 01/05/09 09/17/21 Margarito Curry MD [address] [place] [address] [place] [address] PCP - General 09/18/21 documented as of this encounter
--- OUTSIDE RECORDS SUMMARY | 2024-05-27 14:03 | XMS_ITS | Encounter Summary ---
Author Organization [facility] Address [address] [place] [address] Care Team Providers Care Lard Maker Name Role Phone Cathy Diaz MD Primary Care Provider [phone] Encounter Details Date Type Department Care Team (Latest Contact Info) Description 11/15/2009 13:13 EDT - 11/15/2009 13:16 EDT Hospital Encounter [facility] - Other [address] [place] [address] Cathy Diaz MD [address] [place] [phone] Discharge Disposition: Home or Self Care Social [...] on filedocumented in this encounter Care Teams Lard Maker Relationship Specialty Start Date End Date Cathy Diaz MD [address] [place] [phone] PCP - General 01/05/09 09/17/21 documented as of this encounter
--- OUTSIDE RECORDS SUMMARY | 2024-05-27 14:03 | XMS_ITS | Encounter Summary ---
Author Organization [facility] Address [address] [place] [address] Care Team Providers Care Senior Commercial Loan Officer Name Role Phone Margarito Curry MD Primary Care Provider [phone] Encounter Details Date Type Department Care Team (Late st Contact Info) Description 11/03/2021 Lab Requisition [facility] Pathology & Laboratory Medicine - [facility] [address] [place], [place] [phone] Outr Resulting Lab, Provider Social History Tobacco [...] Negative Negative 11/05/2021 10:07 EDT [facility] Blood VENOUS BLOOD / Unknown 11/02/2021 12:50 EDT 11/03/2021 21:52 EDT Provider Outr Resulting Lab CHEMISTRY & BLOOD GAS ORDERABLES Performing Organization Address City/[facility]/ZIP Co de Phone Number [facility] [address] [place] [address] * HEPATITIS C AB W REFLEX TO HCV RNA BY PCR (11/02/2021 12:50 EDT) Hep C Antibody Negative Negative 11/05/2021 11:09 EDT [facility] Blood VENOUS BLOOD / Unknown 11/02/2021 12:50 EDT 11/03/2021 21:52 EDT Provider Outr Resulting Lab CHEMISTRY & BLOOD GAS ORDERABLES Performing Organization Address City/[facility] Co de Phone Number [facility] [address] [place] [address] documented in this encounter Visit Diagnoses Not on filedocumented in this encounter Additional Health Concerns Infection Onset Date Last Indicated Resolved Time Influenza 07/22/2022 07/22/2022 08/01/2022 22:1 5 EST documented as of this encounter Care Teams Senior Commercial Loan Officer Relationship Specialty Start Date End Date Margarito Curry MD [place] [address] PCP - General 09/18/21 documented as of this encounter
--- OUTSIDE RECORDS SUMMARY | 2024-05-27 14:03 | XMS_ITS | Encounter Summary ---
Author Organization [facility] Address [address] [place] [address] Care Team Providers Care Tool Lapper Hand Name Role Phone Margarito Curry MD Primary Care Provider [phone] Encounter Details Date Type Department Care Team (Latest Contact Info) Description 10/08/2021 Lab Requisition [facility] Pathology & Laboratory Medicine - [facility] [address] [place] [address] Pedro Whitney [address] [place] [address] Encounter for screening for infections with a [...] gonorrhoeae Result Negative Negative 10/09/2021 15:07 EST [facility] Chlamydia trachomatis Result Negative Negative 10/09/2021 15:07 EST [facility] Urine URINE / Unknown 10/06/2021 1 3:00 EST 10/08/2021 22:09 EST Narrative [facility] - 10/09/2021 15:07 EST A first catch urine specimen is acceptable for detection of Gonorrhea and Chlamydia, but might detect up to 10% fewer infections when compared with vaginal and endocervical swab samples. Pedro Whitney MICROBIOLOGY - GENER AL ORDERABLES Performing Organization Address City/State/[facility] Co de Phone Number [facility] [address] [place] [address] documented in this encounter Visit Diagnoses Diagnosis Encounter for screening for infections with a predominantly sexual mode of transmission Encounter for screening for other infectious and parasitic diseases documented in this encounter Additional Health Concerns Infection Onset Date Last Indicated Resolved Time Influenza 07/22/2022 07/22/2022 08/01/2022 22:1 5 EST documented as of this encounter Care Teams Tool Lapper Hand Relationship Specialty Start Date End Date Margarito Curry MD [address] [place] [address] PCP - General 09/18/21 documented as of this encounter
--- OUTSIDE RECORDS SUMMARY | 2024-05-27 14:03 | XMS_ITS | Encounter Summary ---
Author Organization [facility] Address [address] [place] [address] Care Team Providers Care Boil Off Worker Name Role Phone Unavailable Primary Care Provider Blanco shane Encounter Details Date Type Department Care Team (Latest Contact Info) Description 10/12/2002 15:25 EST Hospital Encounter [facility] - Other [address] [place] [address] Indra Davila MD Unknown, Provider, Discharge Disposition: [...] ? MALIA LEDESMA ? Accession #: ? [id number] ? : ? 1990 (Age: 12) ??F [...] rather than a distinctive, umbilicated papule. [facility]: ? Sections consist of [...] invaginations. ??There is no appreciable inflammation. [facility](Dr[facility] Document reviewed and electronically signed by: [...] Davila MD PATHOLOGY ORDERABLES Performing Organization Address City/State/[facility] Co de Phone Number [facility] [address] [place] [address] documented in this encounter Visit Diagnoses Not on filedocumented in this encounter
--- OUTSIDE RECORDS SUMMARY | 2024-05-27 14:03 | XMS_ITS | Encounter Summary ---
Author Organization [facility] Address [address] [place] [address] Care Team Providers Care Newspaper Vendor Name Role Phone Margarito Curry MD Primary Care Provider [phone] Encounter Details Date Type Department Care Team (Late st Contact Info) Description 11/03/2021 Lab Requisition [facility] Pathology & Laboratory Medicine - [facility] [address] [place], [place] [phone] Outr Resulting Lab, Provider Social History Tobacco [...] 4th Generation Negative Negative 11/05/2021 9:40 EDT [facility] Comment:If acute HIV-1 infec tion is suspected in a high risk patient, submit plasma specimen for HIV-1 RNA quantitation test. Blood VENOUS BLOOD / Unknown 11/02/2021 12:50 EDT 11/03/2021 21:52 EDT Narrative [facility] - 11/05/2021 9:40 EDT Fourth Generation assay performed on the Siemens Centaur XPT. Provider Outr Resulting Lab IMMUNOLOGY A ND SEROLOGY ORDERABLES [facility] [address] [place] [address] documented in this encounter Visit Diagnoses Not on filedocumented in this encounter Additional Health Concerns Infection Onset Date Last Indicated Resolved Time Influenza 07/22/2022 07/22/2022 08/01/2022 22:1 5 EST documented as of this encounter Care Teams Newspaper Vendor Relationship Specialty Start Date End Date Margarito Curry MD [facility] [place] [address] PCP - General 09/18/21 documented as of this encounter
--- OUTSIDE RECORDS SUMMARY | 2024-05-27 14:03 | XMS_ITS | Encounter Summary ---
Author Organization [facility] Address [address] [place] [address] Care Team Providers Care Relief Map Modeler Name Role Phone Cathy Diaz MD Primary Care Provider [phone] Encounter Details Date Type Department Care Team (Late st Contact Info) Description 08/20/2007 Results Only [facility] [address] [place] [address] Cathy Diaz MD [address] [place] [phone] Social History Tobacco Use Types Packs/Day [...] BLOOD GA S ORDERABLES Performing Organization Address [facility] Co de Phone Number [facility] [address] [place] [address] * (ABNORMAL) GLUCOSE, SERUM (08/20/2007 14:55 EST) Pathologist [facility] Glucose, Serum 66(L) 70 - 100 mg/dl [facility] 08/20/2007 14:5 5 EST 08/20/2007 20:09 EST Cathy Diaz MD CHEMISTRY & BLOOD GA S ORDERABLES Performing Organization Address [facility] de Phone Number [facility] [address] [place] [address] * FERRITIN (08/20/2007 14:55 EST) Pathologist [facility] Ferritin 16 10 - 291 ng/mL [facility] 08/20/2007 14:5 5 EST 08/20/2007 20:09 EST Ctahy Diaz MD CHEMISTRY & BLOOD GA S ORDERABLES Performing Organization Address [facility] Co de Phone Number [facility] [address] [place] [address] * (ABNORMAL) HEMAGRAM (08/20/2007 14:55 EST) WBC [...] & PF4 ORD ERABLES Performing Organization Address City/[facility] Co de Phone Number [facility] [address] [place] [address] * TESTS ADDED BY PHONE (08/20/2007 14:55 EST) Tests to be added [facility] Diagnosis Code ANEMIA FLETC [facility] Who Called [facility] FOR DR[facility] PALMA [facility] Location Code [facility] 08/20/2007 14:5 5 EST 08/20/2007 20:09 EST Cathy Diaz MD CHEMISTRY & BLOOD GA S ORDERABLES Performing Organization Address [facility] de Phone Number [facility] [address] [place] [address] documented in this encounter Visit Diagnoses Not on filedocumented in this encounter Care Teams Relief Map Modeler Relationship Specialty Start Date End Date Cathy Diaz MD [address] [place] [phone] PCP - General 01/05/09 09/17/21 documented as of this encounter
--- OUTSIDE RECORDS SUMMARY | 2024-05-27 14:03 | XMS_ITS | Encounter Summary ---
Author Organization [facility] Address [address] [place] [address] Care Team Providers Care Sharepoint Solutions Architect Name Role Phone Margarito Curry MD Primary Care Provider Encounter Details Date Type Department Care Team (Late st Contact Info) Description 11/01/2023 Lab Requisition [facility] Pathology & Laboratory Medicine - [facility] [address] [place], [place] [phone] Outr Resulting Lab, Provider Social History Tobacco [...] Syphilis Serology Negative Negative 11/03/2023 11:17 EDT [facility] Blood VENOUS BLOOD / Unknown 10/31/2023 16:55 EDT 11/01/2023 21:34 EDT Provider Outr Resulting Lab IMMUNOLOGY A ND SEROLOGY ORDERABLES Performing Organization Address City/[facility]/ZIP Co de Phone Number [facility] [address] [place] [address] * HEPATITIS C AB W REFLEX TO HCV RNA BY PCR (10/31/2023 16:55 EDT) Hep C Antibody Negative Negative 11/03/2023 10:39 EDT [facility] Blood VENOUS BLOOD / Unknown 10/31/2023 16:55 EDT 11/01/2023 21:34 EDT Provider Outr Resulting Lab CHEMISTRY & BLOOD GAS ORDERABLES Performing Organization Address City/[facility] Co de Phone Number [facility] [address] [place], [place] [address] documented in this encounter Visit Diagnoses Not on filedocumented in this encounter Care Teams Sharepoint Solutions Architect Relationship Specialty Start Date End Date Margarito Curry MD [address] [place] [address] PCP - General 09/18/21 documented as of this encounter
--- OUTSIDE RECORDS SUMMARY | 2024-05-27 14:03 | XMS_ITS | Encounter Summary ---
Author Organization [facility] Address [address] [place] [address] Care Team Providers Care Radiology Technician Name Role Phone Cathy Diaz MD Primary Care Provider [phone] Margarito Curry MD Primary Care Provider Encounter Details Date Type Department Care Team (Late st Contact Info) Description 11/01/2020 Lab Requisition [facility] Pathology & Laboratory Medicine - [address] [address] Janel Bernal, DIANETIC COUNSELOR [address] [place] [address] Encounter for other general examination [...] System with Manual Evaluation 11/09/2020 11:27 EDT [facility] Specimen Adequacy Satisfactory for Evaluation - transformation zone component present 11/09/2020 11:27 EDT [facility] General Categorization Negative for intraepithelial lesion or malignancy 11/09/2020 11:27 EDT [facility] Attestation . 11/09/2020 11:27 EDT [facility] at 1127 Clinical History See below 11/10/19 11:27 EDT [facility] Performing Lab [facility] 11/09/2020 11:27 EDT [facility] Scanned Images 11/09/2020 11:27 EDT [facility] Papanicolaou smear specimen (specimen) CERVIX UTERI STRUCTURE / Unknown 11/01/2020 8:40 EDT 11/02/2020 11:02 EDT Janel A Gabe DIANETIC COUNSELOR PATHOLOGY ORDERAB LES [facility] [address] [place] [address] * (ABNORMAL) CHLAMYDIA/N. GONORRHOEAE AMPLIFIED RNA, THINPREP (11/01/2020 8:40 EDT) Neisseria gonorrhoeae Result Negative Negative 11/02/2020 13:53 EDT [facility] Chlamydia trachomatis Result Positive(A) Negative 11/02/2020 13:53 EDT [facility] Papanicolaou smear specimen (specimen) CERVIX UTERI STRUCTURE / Unknown 11/01/2020 8:40 EDT 11/02/2020 7:57 EDT [place] A Gabe DIANETIC COUNSELOR MICROBIOLOGY - GE NERAL ORDERABLES [facility] [address] [place] [address] documented in this encounter Visit Diagnoses Diagnosis Encounter for other general examination documented in this encounter Additional Health Concerns Infection Onset Date Last Indicated Resolved Time Influenza 07/22/2022 07/22/2022 08/01/2022 22:1 5 EST documented as of this encounter Care Teams Radiology Technician Relationship Specialty Start Date End Date Cathy Diaz MD [address] [place] [phone] PCP - General 01/05/09 09/17/21 Margarito Curry MD [address] [place] [address] PCP - General 09/18/21 documented as of this encounter
--- OUTSIDE RECORDS SUMMARY | 2024-05-27 14:03 | XMS_ITS | Encounter Summary ---
Author Organization [facility] Address [address] [place] [address] Care Team Providers Care Recycler Name Role Phone Cathy Diaz MD Primary Care Provider [phone] Encounter Details Date Type Department Care Team (Late st Contact Info) Description 11/15/2009 Results Only [facility] Laboratory Services - [facility] [address] [place], [place] [address] Cathy Diaz MD [address] [place] [phone] Social History Tobacco Use Types Packs/Day Years [...] Result No Chlamydia trachomatis DNA detected by metal neutralizer mediated amplification. [facility] GC Result No Neisseria gonorrhoeae DNA detected by metal neutralizer mediated amplification. [facility] 11/15/2009 13:2 7 EDT 11/16/2009 13:27 EDT Cathy Diaz MD MICROBIOLOGY - GENER AL ORDERABLES [facility] [address] [place] [address] * CYTOPATHOLOGY (11/15/2009 0:00 EDT) Pathology Report: CYTOPATHOLOGY REPORT ? Reports generated via electronic interface contain original data; ? however they are lacking the format of the original report. ? Caution should be taken when reading/interpreti ng unformatted reports. ? Name: ? MALIA SCHAEFER ? Accession #: ? [id number] ? : ? 1990 (Age: 19) ??F [...] MD PATHOLOGY ORDERABLES [facility] [address] [place] [address] documented in this encounter Visit Diagnoses Not on filedocumented in this encounter Care Teams Recycler Relationship Specialty Start Date End Date Cathy Diaz MD [address] [place] [phone] PCP - General 01/05/09 09/17/21 documented as of this encounter
--- OUTSIDE RECORDS SUMMARY | 2024-05-27 14:03 | XMS_ITS | Encounter Summary ---
Author Organization [facility] Address [address] [place] [address] Care Team Providers Care Tying Machine Operator Name Role Phone Margarito uCrry MD Primary Care Provider [phone] Encounter Details Date Type Department Care Team (Late st Contact Info) Description 11/02/2021 Lab Requisition [facility] Pathology & Laboratory Medicine - [facility] [address] [place] [address] Margarito Curry MD [address] [place] [address] [phone] Encounter for other general examination Social History [...] Imaging System with Manual Evaluation 11/12/2021 11:23 [facility] Specimen Adequacy Satisfactory for Evaluation - transformation zone component present 11/12/2021 11:23 T [facility] General Categorization Epithelial Cell Abnormality 11/12/2021 11:23 [facility] Descriptive Diagnosis Squamous Cell Abnormality - Low grade squamous intraepithelial lesion (LSIL). 11/12/2021 11:23 [facility] Educational Comments [facility] recommends following ASCCP's 2012 Updated Consensus Guidelines for the Management of Abnormal Cervical Cancer Screening Tests and Cancer Precursors (JLGTD, 2013; 17(5):S1-S27). Consensus guidelines are available online at www.asccp.org. 11/12/2021 11:23 [facility] Attestation By the signature below, the attending physician certifies that they have personally conducted a gross and/or microscopic examination of the described specimens and rendered or confirmed the above diagnosis. 11/12/2021 11:23 [facility] at 1123 Clinical History See below 11/13/19 11:23 [facility] Performing Lab [facility] 11/12/2021 11:23 [facility] Scanned Images 11/12/2021 11:23 [facility] Papanicolaou smear specimen (specimen) CERVIX UTERI STRUCTURE / Unknown 11/02/2021 12:30 EDT 11/05/2021 14:36 EDT Margarito Curry MD PATHOLOGY ORDERABLES [facility] [address] [place] [phone] * CHLAMYDIA/N. GONORRHOEAE AMPLIFIED RNA, THINPREP (11/02/2021 12:30 EDT) Neisseria gonorrhoeae Result Negative Negative 11/05/2021 15:27 EDT [facility] Chlamydia trachomatis Result Negative Negative 11/05/2021 15:27 EDT [facility] Papanicolaou smear specimen (specimen) CERVIX UTERI STRUCTURE / Unknown 11/02/2021 12:30 EDT 11/05/2021 8:36 EDT Margarito Curry MD MICROBIOLOGY - GENER AL ORDERABLES [facility] [address] [place] [address] documented in this encounter Visit Diagnoses Diagnosis Encounter for other general examination documented in this encounter Additional Health Concerns Infection Onset Date Last Indicated Resolved Time Influenza 07/22/2022 07/22/2022 08/01/2022 22:1 5 EST documented as of this encounter Care Teams Tying Machine Operator Relationship Specialty Start Date End Date Margarito Curry MD [address] [place] [address] PCP - General 09/18/21 documented as of this encounter
--- OUTSIDE RECORDS SUMMARY | 2024-05-27 14:03 | XMS_ITS | Encounter Summary ---
Author Organization [facility] Address [address] [place] [address] Care Team Providers Care Sheriff Officer Name Role Phone Margarito Curry MD Primary Care Provider [phone] Encounter Details Date Type Department Care Team (Late st Contact Info) Description 12/01/2023 Lab Requisition [facility] Pathology & Laboratory Medicine - [facility] [address] [place], [place] [phone] Outr Resulting Lab, Provider Social History Tobacco [...] Negative Negative 12/01/2023 20:11 EDT [facility] Comment:If acute HIV-1 infec tion is suspected in a high risk patient, submit plasma specimen for HIV-1 RNA quantitation test. Blood VENOUS BLOOD / Unknown 12/01/2023 10:39 EDT 12/01/2023 17:16 EDT Narrative [facility] - 12/01/2023 20:11 EDT Fourth Generation assay performed on the Siemens Xytisaur XPT. Provider Outr Resulting Lab IMMUNOLOGY A ND SEROLOGY ORDERABLES [facility] [address] [place], [place] [phone] documented in this encounter Visit Diagnoses Not on filedocumented in this encounter Care Teams Sheriff Officer Relationship Specialty Start Date End Date Margarito Curry MD [address] [place] [address] PCP - General 09/18/21 documented as of this encounter
--- OUTSIDE RECORDS SUMMARY | 2024-05-27 14:03 | XMS_ITS | Encounter Summary ---
Author Organization [facility] Address [address] [place] [address] Care Team Providers Care Manager Crisis Name Role Phone Cathy Diaz MD Primary Care Provider [phone] Encounter Details Date Type Department Care Team (Late st Contact Info) Description 03/14/2016 Results Only [facility] [phone] Tod Hough Social History Tobacco Use Types [...] ? MALIA LEDESMA ? Accession #: ? [id number] : ? 1990 (Age: 25) ??F ?Collect [...] intraepithelial lesion (LSIL). EDUCATIONAL NOTES/RECOMMENDATI ONS ? [facility] recommends following ASCCP's 2012 Updated Consensus Guidelines for the Management of Abnormal Cervical Cancer Screening Tests and Cancer Precursors (JLGTD, 2013; 17(5):S1-S27). ??Consensus guidelines are available online at www.asccp.org. ? Document reviewed and electronically signed by: ? JOSE TAN MD ? Report Date: ??03/27/2016 15:59 End of Report [facility] 03/14/2016 03/19/2016 Tod Hough PATHOLOGY ORDERABLES [facility] [address] [place] [address] documented in this encounter Visit Diagnoses Not on filedocumented in this encounter Care Teams Manager Crisis Relationship Specialty Start Date End Date Cathy Diaz MD [address] [place] [phone] PCP - General 01/05/09 09/17/21 documented as of this encounter
--- OUTSIDE RECORDS SUMMARY | 2024-05-27 14:03 | XMS_ITS | Encounter Summary ---
Author Organization [facility] Address [address] [place] [address] Care Team Providers Care Geomorphology Teacher Name Role Phone Margarito Curry MD Primary Care Provider [phone] Reason for Visit * Reason Comments Anxiety Chest Pain Encounter Details Date Type Department Care Team (Late st Contact Info) Description 10/04/2021 0:18 EST - 10/04/2021 2:16 EST Emergency [facility] Emergency Department - [address] [phone] Cassi David PA-C [address] [facility], [address] [place] [address] Anxiety (Primary Dx) Discharge Disposition: [...] is overwhelming, please contact Crisis Services at [phone]. documented in this encounter Medications at Time [...] exam for emergent medical conditions at the [facility] on 10/04/2021 Chief Complaint Panic [...] most recently presented to the ED at [facility] on Friday as she had run out of her home lorazepam. The patient reports that she has a plan for admission to [facility]. She is adamant there is no SI or HI and is looking forward to going to [facility] for further management. History was provided by: [...] the patient is planned to go to [facility] on Friday. Theyare comfortable with the patient [...] has them frequently, and has been at [facility] for five days with plans to go to [facility]. Aggravating factor isdeath of mother. Received [...] EDT) 10/30/2021 16:1 9 EDT Scan 2 Mailing Jogger PROCEDURE/MINOR NEDRA GICAL ORDERABLES * EKG 12-LEAD (10/04/2021 0:33 EST) 10/04/2021 0:33 EST Narrative [facility] EKG - 10/30/2021 16:14 EDT ?[facility] Emergency ? Test Date: ?2021-10-04 Pat Name: ? MALIA LEDESMA ? Department: ?? ED ? Room: ? GT40 Gender: ? Female ? Spring Upholsterer: ?? : ?1990 ? Requested By: BERNICE Bernal Order Number: [id number] ? Reading MD: ?? JUDIT ALETA MD ? Measurements Intervals ?[place] ? Rate: ? 78 ? P: ?42 SC: ? 123 ?QRS: ?11 QRSD: ? 81 ? T: ?20 QT: ? 363 ? QTc: ?416 ? Interpretive Statements SINUS RHYTHM WITH SINUS ARRHYTHMIA No previous ECG available for comparison I reviewed the tracing and have either agreed or edited the findings in this report. Electronically Signed On 10-30-2021 16:14:32 EDT by JUDIT RIVER MD. Procedure Note Judit River MD - 10/30/2021 [facility] Emergency Test Date: 2021-10-04 Pat Name: MALIA LEDESMA Department: ED Room: GT40 Gender: Female Spring Upholsterer: : 1990 Requested By: BERNICE Bernal Order Number: [id number] Reading MD: JUDIT MORTON Measurements Intervals [place] Rate: 78 P: 42 SC: 123 QRS: 11 QRSD: 81 T: 20 QT: 363 QTc: 416 Interpretive Statements SINUS RHYTHM WITH SINUS ARRHYTHMIA No previous ECG available for comparison I reviewed the tracing and have either agreed or edited the findings inthis report. Electronically Signed On 10-30-2021 16:14:32 EDT by LUCAS PORTER. Steve Dos Santos MD CARDIAC ECG ORDERABL ES [facility] EKG documented in this encounter Visit Diagnoses [...] 10/04/2021 documented in this encounter Care Teams Geomorphology Teacher Relationship Specialty Start Date End Date Margarito Curry MD [address] [facility] [place] [address] PCP - General 09/18/21 documented as of this encounter
--- OUTSIDE RECORDS SUMMARY | 2024-05-27 14:03 | XMS_ITS | Encounter Summary ---
Author Organization [facility] Address [address] [place] [address] Care Team Providers Care Supervisor Mending Name Role Phone Unavailable Primary Care Provider Unavailabl e Encounter Details Date Type Department Care Team (Latest Contact Info) Description 09/26/2008 16:04 EST Hospital Encounter [facility] - Other [address] [place] [address] Cathy Diaz MD [address] [place] [phone] Discharge Disposition: Home or Self Care Social [...]
--- OUTSIDE RECORDS SUMMARY | 2024-05-27 14:03 | XMS_ITS | Encounter Summary ---
Author Organization [facility] Address [address] [place] [address] Care Team Providers Care Aged Or Disabled Carer Name Role Phone Margarito Curry MD Primary Care Provider [phone] Encounter Details Date Type Department Care Team (Late st Contact Info) Description 11/01/2023 Lab Requisition [facility] Pathology & Laboratory Medicine - [facility] [address] [place], [place] [phone] Outr Resulting Lab, Provider Social History Tobacco [...] 4th Generation Negative Negative 11/03/2023 10:42 EDT [facility] Comment:If acute HIV-1 infec tion is suspected in a high risk patient, submit plasma specimen for HIV-1 RNA quantitation test. Blood VENOUS BLOOD / Unknown 10/31/2023 16:55 EDT 11/01/2023 21:34 EDT Narrative [facility] - 11/03/2023 10:42 EDT Fourth Generation assay performed on the Siemens TechniScanaur XPT. Provider Outr Resulting Lab IMMUNOLOGY A ND SEROLOGY ORDERABLES [facility] [address] [place], [place] [phone] documented in this encounter Visit Diagnoses Not on filedocumented in this encounter Care Teams Aged Or Disabled Carer Relationship Specialty Start Date End Date Margarito Curry MD [address] [place] [address] PCP - General 09/18/21 documented as of this encounter
--- OUTSIDE RECORDS SUMMARY | 2024-05-27 14:03 | XMS_ITS | Encounter Summary ---
Author Organization [facility] Address [address] [place] [address] Care Team Providers Care Calender Operator Helper Name Role Phone Cathy Diaz MD Primary Care Provider [phone] Encounter Details Date Type Department Care Team (Late st Contact Info) Description 12/30/2016 Results Only [facility]- [facility] [phone] Zoila Rdz MD [address] [place] [phone] Social History Tobacco Use Types Packs/Day Years [...] ? MALIA LEDESMA ? Accession #: ? [id number] : ? 1990 (Age: 26) ??F ?Collect [...] Report Date: ??01/14/2017 16:49 End of Report [facility] 12/30/2016 01/02/2017 Zoila Rdz MD PATHOLOGY ORDERABLES [facility] [address] [place] [address] documented in this encounter Visit Diagnoses Not on filedocumented in this encounter Care Teams Calender Operator Helper Relationship Specialty Start Date End Date Cathy Diaz MD [address] [place] [phone] PCP - General 01/05/09 09/17/21 documented as of this encounter
--- OUTSIDE RECORDS SUMMARY | 2024-05-27 14:03 | XMS_ITS | Encounter Summary ---
Author Organization [facility] Address [address] [place] [address] Care Team Providers Care Business Services Analyst Name Role Phone Margarito Curry MD Primary Care Provider [phone] Encounter Details Date Type Department Care Team [...] on filedocumented in this encounter Care Teams Business Services Analyst Relationship Specialty Start Date End Date Margarito Curry [place] [place] [address] PCP - General 09/18/21 documented as of this encounter
--- OUTSIDE RECORDS SUMMARY | 2024-05-27 14:03 | XMS_ITS | Encounter Summary ---
Author Organization [facility] Address [address] [place] [address] Care Team Providers Care Customer Service Advocate Name Role Phone Unavailable Primary Care Provider Unavailabl e Encounter Details Date Type Department Care Team (Latest Contact Info) Description 09/07/2008 21:22 EST Hospital Encounter [facility] - Other [address] [place] [address] Cathy Diaz MD [address] [place] [phone] Discharge Disposition: Home or Self Care Social [...] Result No Chlamydia trachomatis DNA detected by catalog librarian mediated amplification. [facility] Result No Neisseria gonorrhoeae DNA detected by catalog librarian mediated amplification. [facility] 09/26/2008 7:43 EST 09/27/2008 7:43 EST Cathy Diaz MD MICROBIOLOGY - GENER AL ORDERABLES Performing Organization Address [facility] Co de Phone Number [facility] [address] [place] [address] * FERRITIN (09/07/2008 16:45 EST) Ferritin 36 10 - 291 ng/mL [facility] 09/07/2008 16:4 5 EST 09/07/2008 20:28 EST Cathy Diaz MD CHEMISTRY & BLOOD GA S ORDERABLES Performing Organization Address [facility] Co de Phone Number [facility] [address] [place] [address] * TESTS ADDED BY PHONE (09/07/2008 16:45 EST) Tests to be added REJI [facility] Diagnosis Code ANEMIA [facility]ENE[facility] Who Called YASIR FOR DR CATHY [facility] Location Code [facility] 09/07/2008 16:4 5 EST 09/07/2008 20:28 EST Cathy Diaz MD CHEMISTRY & BLOOD GA S ORDERABLES Performing Organization Address [facility] de Phone Number [facility] [address] [place] [address] * (ABNORMAL) HEMAGRAM AND DIFFERENTIAL (09/07/2008 16:45 [...] [facility] ABS Basophils 0.02 K[facility] Type of Diff: Automated [facility] 09/07/2008 16:4 5 EST 09/07/2008 20:28 EST Cathy Diaz MD PACKAGES & DNA PROBE ORDERABLES Performing Organization Address [facility] de Phone Number [facility] [address] [place] [address] * MONO-TEST (09/07/2008 16:45 EST) Traverse-Test Neg NEG [facility] 09/07/2008 16:4 5 EST 09/07/2008 20:28 EST Cathy Diaz MD CHEMISTRY & BLOOD GA S ORDERABLES Performing Organization Address [facility] de Phone Number [facility] [address] [place] [address] * COMPREHENSIVE METABOLIC PANEL (09/07/2008 16:45 EST) [...] GA S ORDERABLES [facility] [address] [place] [address] documented in this encounter Visit Diagnoses Not on filedocumented in this encounter
--- OUTSIDE RECORDS SUMMARY | 2024-05-27 14:03 | XMS_ITS | Encounter Summary ---
Author Organization [facility] Address [address] [place] [address] Care Team Providers Care Hot Dip Galvanizer Name Role Phone Cathy Diaz MD Primary Care Provider [phone] Encounter Details Date Type Department Care Team (Late st Contact Info) Description 06/16/2007 Before PRISM Converted Visit (Maple) [facility] - Maple conversion [address] [place] [address] Josie Santillan MD [address] [place] [phone] Social History Tobacco Use Types Packs/Day Years [...] Josie Santillan MD - terry Job ID: [id number] Doc ID: [id number] cc: Cathy Diaz MD documented in this encounter Care Teams Hot Dip Galvanizer Relationship Specialty Start Date End Date Cathy Diaz MD [address] [place] [phone] PCP - General 01/05/09 09/17/21 documented as of this encounter
--- OUTSIDE RECORDS SUMMARY | 2024-05-27 14:03 | XMS_ITS | Encounter Summary ---
Author Organization [facility] Address [address] [place] [address] Care Team Providers Care Maintenance And Repair Worker Name Role Phone Unavailable Primary Care Provider Unavailabl e Encounter Details Date Type Department Care Team (Late st Contact Info) Description 06/16/2007 8:57 EDT Hospital Encounter [facility] [address] [place] [address] Josie Santillan MD [address] [place] [phone] Social History Tobacco Use Types [...]
--- OUTSIDE RECORDS SUMMARY | 2024-05-27 14:03 | XMS_ITS | Encounter Summary ---
Author Organization [facility] Address [address] [place] [address] Care Team Providers Care Rubber Moulding Machine Operator Name Role Phone Cathy Diaz MD Primary Care Provider [phone] Encounter Details Date Type Department Care Team (Late st Contact Info) Description 07/25/2003 Results Only [facility] - Maple conversion [address] [place] [address] Maricel Lerner MD [address] [place] [phone] Social History Tobacco Use Types Packs/Day [...] ISOLATED [facility] Report Status Final [id number] [facility] 07/25/2003 20:5 9 EST 07/25/2003 20:59 EST Maricel Lerner MD MICROBIOLOGY - GENER AL ORDERABLES [facility] [address] [place] [address] documented in this encounter Visit Diagnoses Not on filedocumented in this encounter Care Teams Rubber Moulding Machine Operator Relationship Specialty Start Date End Date Cathy Diaz MD [address] [place] [phone] PCP - General 01/05/09 09/17/21 documented as of this encounter
--- OUTSIDE RECORDS SUMMARY | 2024-05-27 14:03 | XMS_ITS | Encounter Summary ---
Author Organization [facility] Address [address] [place] [address] Care Team Providers Care Magazine Filler Name Role Phone Cathy Diaz MD Primary Care Provider [phone] Encounter Details Date Type Department Care Team (Late st Contact Info) Description 05/11/2018 Results Only [facility] [phone] [address] [address] Social History Tobacco Use Types [...] ? MALIA LEDESMA ? Accession #: ? [id number] ? : ? 1990 (Age: 27) ??F ?Collect Date: ? 05/11/2018 ? Location: ? [facility] ? Receive Date: ? 05/12/2018 ? Provider: LIEGH ANN BAUER CNM Copy to: BRITTNEY SCHNEIDER HL7 DEVELOPER ? Final Report SPECIMEN ADEQUACY ? Satisfactory for Evaluation - transformation zone component present GENERAL CATEGORIZATION ? Epithelial Cell Abnormality INTERPRETATION ? Squamous Cell Abnormality - Atypical squamous cells, undetermined significance (ASC-US). Fungal organisms present morphologically consistent with Judi species. EDUCATIONAL NOTES/RECOMMENDATI ONS ? [facility] recommends following ASCCP's 2012 Updated Consensus Guidelines [...] 33,35,39,45,51,52, 56,58,59,66, and 68 is detected by carcass washer mediated amplification. High and intermediate risk HPV [...] confirmed the above diagnosis. End of Report [facility] 05/11/2018 05/12/2018 Leigh Ann Bauer [facility] PATHOLOGY ORDERABLES [facility] [address] [place] [phone] documented in this encounter Visit Diagnoses Not on filedocumented in this encounter Care Teams Magazine Filler Relationship Specialty Start Date End Date Cathy Diaz MD [address] [place] [phone] PCP - General 01/05/09 09/17/21 documented as of this encounter
--- OUTSIDE RECORDS SUMMARY | 2024-05-27 14:03 | XMS_ITS | Encounter Summary ---
Author Organization [facility] Address [address] [place] [address] Care Team Providers Care Ribbon Blocker Name Role Phone Unavailable Primary Care Provider Unavailabl e Encounter Details Date Type Department Care Team (Late st Contact Info) Description 07/25/2003 11:52 EST - 07/25/2003 11:59 EST Hospital Encounter [facility] - Other [address] [place] [address] Maricel Lerner MD [address] [place] [phone] Discharge Disposition: Auto Discharge Social History [...]
--- OUTSIDE RECORDS SUMMARY | 2024-05-27 14:03 | XMS_ITS | Encounter Summary ---
Author Organization [facility] Address [address] [place] [address] Care Team Providers Care Typewriter Mechanic Name Role Phone Margarito Curry MD Primary Care Provider [phone] Encounter Details Date Type Department Care Team (Late st Contact Info) Description 12/01/2023 Lab Requisition [facility] Pathology & Laboratory Medicine - [facility] [address] [place], [place] [phone] Outr Resulting Lab, Provider Social History Tobacco [...] Surface Ag Negative Negative 12/01/19 20:15 EDT [facility] Hep B Surface Ab, Quantitative <3.1 See Note mIU/mL 12/01/2023 20:15 EDT [facility] Comment: Reference Range for Hep B Surface Ab, Quant: Positive: >= 10.0 mIU/mL Negative: ??< 10.0 mIU/mL Patient is presumed to not be immune to infection with Hepatitis B Virus. Hep B Surface Ab, Qualitative Negative See Note 12/01/2023 20:15 EDT [facility] Comment: Reference Range for Hep B Surface Ab, Qual: Unvaccinated: ??Negative Vaccinated: ??Positive Hepatitis B Core Ab, Total Negative Negative 12/01/2023 20:15 EDT [facility] Hep C Antibody Negative Negative 12/01/2023 20:15 EDT [facility] Blood VENOUS BLOOD / Unknown 12/01/2023 10:39 EDT 12/01/2023 17:16 EDT Provider Outr Resulting Lab CHEMISTRY & BLOOD GAS ORDERABLES Performing Organization Address City/State/[facility] Co de Phone Number [facility] [address] [place], [place] [phone] documented in this encounter Visit Diagnoses Not on filedocumented in this encounter Care Teams Typewriter Mechanic Relationship Specialty Start Date End Date Margarito Curry MD [address] [place] [address] PCP - General 09/18/21 documented as of this encounter
--- OUTSIDE RECORDS SUMMARY | 2024-05-27 14:03 | XMS_ITS | Encounter Summary ---
Author Organization [facility] Address [address] [place] [address] Care Team Providers Care Enrollment Services Dean Name Role Phone Cathy Diaz MD Primary Care Provider [phone] Encounter Details Date Type Department Care Team (Latest Contact Info) Description 05/11/2018 13:51 EDT - 05/11/2018 23:59 EDT Hospital Encounter [address] [address] Unknown, Provider, Discharge Disposition: Home or Self [...] Code Departure Means Destination Home or Self [facility] documented in this encounter Plan of Treatment Not on file documented as of this encounter Visit Diagnoses Not on filedocumented in this encounter Care Teams Enrollment Services Dean Relationship Specialty Start Date End Date Cathy Diaz MD [address] [place] [phone] PCP - General 01/05/09 09/17/21 documented as of this encounter
--- OUTSIDE RECORDS SUMMARY | 2024-05-27 14:03 | XMS_ITS | Encounter Summary ---
Author Organization [facility] Address [address] [place] [address] Care Team Providers Care Driver Medic Name Role Phone Margarito Curry MD Primary Care Provider [phone] Encounter Details Date Type Department Care Team (Late st Contact Info) Description 05/01/2023 Lab Requisition [facility] Pathology & Laboratory Medicine - [facility] [address] [place], [place] [id number] Outr Resulting Lab, Provider Social History Tobacco [...] gonorrhoeae Result Negative Negative 05/02/2023 13:23 EDT [facility] Chlamydia trachomatis Result Negative Negative 05/02/2023 13:23 EDT [facility] Swab VAGINAL STRUCTURE / Unknown 04/30/2023 16:15 EDT 05/01/2023 18:08 EDT Provider Outr Resulting Lab MICROBIOLOGY - GENERAL ORDERABLES [facility] [address] [place] [address] documented in this encounter Visit Diagnoses Not on filedocumented in this encounter Care Teams Driver Medic Relationship Specialty Start Date End Date Margarito Curry MD [address] [place] [address] PCP - General 09/18/21 documented as of this encounter
--- OUTSIDE RECORDS SUMMARY | 2024-05-27 14:03 | XMS_ITS | Encounter Summary ---
Author Organization [facility] Address [address] [place] [address] Care Team Providers Care Medical Radiation Tech Name Role Phone Margarito Curry MD Primary Care Provider [phone] Encounter Details Date Type Department Care Team (Late st Contact Info) Description 09/13/2022 14:45 EST Phlebotomy Only [facility] 2 Phlebotomy [address] [place], [place] [id number] [place], Acc Phlebotomy Other specified general medical examination [...] Quantiferon Interpretation Negative Negative 09/16/2022 13:28 EST [facility] Comment:No interferon-gamma response to M. tuberculosis antigens was detected. ??Infection with M. tuberculosis is unlikely. A single negative result does not exclude infection with M. tuberculosis. ??In patients at high risk for M. tuberculosis infection, a second test should be considered. TB1 Ag minus Nil 0.00 IU/ml 09/16/19 13:28 EST [facility] TB2 Ag minus Nil 0.00 IU/mL 09/16/19 13:28 EST [facility] Blood VENOUS BLOOD / Unknown Venipuncture / Unknown 09/13/2022 14:46 EST 09/16/2022 13:20 EST Narrative [facility] - 09/16/2022 13:28 EST Results were obtained with the Qiagen QuantiFERON-TB Gold Plus CLIA. New platform in use 04/25/2021 Lawson Castaneda DO IMMUNOLOGY AND SEROL OGY ORDERABLES Performing Organization Address City/[facility] Co de Phone Number [facility] [address] [place] [address] * QUANTIFERON MITOGEN (PERFORMABLE) (09/13/2022 14:46 EST) Blood VENOUS BLOOD / Unknown Venipuncture / Unknown 09/13/2022 14:46 EST 09/13/2022 14:54 EST Lawson Castaneda DO IMMUNOLOGY AND SEROL OGY ORDERABLES Performing Organization Address City/[facility]/ZIP Co de Phone Number [facility] [address] [place] [address] * QUANTIFERON TB2 (PERFORMABLE) (09/13/2022 14:46 EST) Blood VENOUS BLOOD / Unknown Venipuncture / Unknown 09/13/2022 14:46 EST 09/13/2022 14:54 EST Lawson Greyson Leonel WOOD IMMUNOLOGY AND SEROL OGY ORDERABLES Performing Organization Address [facility] Co de Phone Number [facility] [address] [place] [address] * QUANTIFERON TB1 (PERFORMABLE) (09/13/2022 14:46 EST) Blood VENOUS BLOOD / Unknown Venipuncture / Unknown 09/13/2022 14:46 EST 09/13/2022 14:54 EST Lawson Castaneda DO IMMUNOLOGY AND SEROL OGY ORDERABLES Performing Organization Address [facility] de Phone Number [facility] [address] [place] [address] * QUANTIFERON NIL (PERFORMABLE) (09/13/2022 14:46 EST) Blood VENOUS BLOOD / Unknown Venipuncture / Unknown 09/13/2022 14:46 EST 09/13/2022 14:54 EST Lawson Castaneda DO IMMUNOLOGY AND SEROL OGY ORDERABLES Performing Organization Address [facility] Co de Phone Number [facility] [address] [place] [address] documented in this encounter Visit Diagnoses Diagnosis Other specified general medical examination- Primary documented in this encounter Care Teams Medical Radiation Tech Relationship Specialty Start Date End Date Margarito Curry MD [facility] [place] [address] PCP - General 09/18/21 documented as of this encounter
--- OUTSIDE RECORDS SUMMARY | 2024-05-27 14:03 | XMS_ITS | Encounter Summary ---
Author Organization [facility] Address [address] [place] [address] Care Team Providers Care Dry Cans Operator Name Role Phone Cathy Diaz MD Primary Care Provider [phone] Margarito Curry MD Primary Care Provider [phone] Encounter Details Date Type Department Care Team (Late st Contact Info) Description 05/17/2021 Lab Requisition [facility] Pathology & Laboratory Medicine - [address] [phone] Outr Resulting Lab, Provider Social History Tobacco [...] 4th Generation Negative Negative 05/18/2021 10:36 EDT [facility] Comment: If acute HIV-1 infection is suspected in a high risk ??patient, submit plasma specimen for HIV-1 RNA quantitation test. Fourth Generation assay performed on the Siemens Centaur. Blood VENOUS BLOOD / Unknown 05/16/2021 11:30 EDT 05/17/2021 16:13 EDT Provider Outr Resulting Lab IMMUNOLOGY A ND SEROLOGY ORDERABLES [facility] [address] [place] [address] documented in this encounter Visit Diagnoses Not on filedocumented in this encounter Additional Health Concerns Infection Onset Date Last Indicated Resolved Time Influenza 07/22/2022 07/22/2022 08/01/2022 22:1 5 EST documented as of this encounter Care Teams Dry Cans Operator Relationship Specialty Start Date End Date Cathy Diaz MD [address] [place] [address] PCP - General 01/05/09 09/17/21 Margarito Curry MD [address] [place] [address] [place] [address] PCP - General 09/18/21 documented as of this encounter
--- OUTSIDE RECORDS SUMMARY | 2024-05-27 14:03 | XMS_ITS | Encounter Summary ---
Author Organization [facility] Address [address] [place] [address] Care Team Providers Care Renderer Name Role Phone Cathy Diaz MD Primary Care Provider [phone] Encounter Details Date Type Department Care Team (Latest Contact Info) Description 03/14/2016 7:37 EDT - 03/14/2016 23:59 EDT Hospital Encounter [address] [address] Unknown, Provider, Discharge Disposition: Home or Self [...] on filedocumented in this encounter Care Teams Renderer Relationship Specialty Start Date End Date Cathy Diaz MD [address] [place] [phone] PCP - General 01/05/09 09/17/21 documented as of this encounter
--- OUTSIDE RECORDS SUMMARY | 2024-05-27 14:03 | XMS_ITS | Encounter Summary ---
Author Organization [facility] Address [address] [place] [address] Care Team Providers Care Grain Picker Name Role Phone Margarito Curry MD Primary Care Provider [phone] Encounter Details Date Type Department Care Team (Late st Contact Info) Description 12/01/2023 Lab Requisition [facility] Pathology & Laboratory Medicine - [facility] [address] [place], [place] [phone] Outr Resulting Lab, Provider Social History Tobacco [...] Syphilis Serology Negative Negative 12/02/2023 10:18 EDT [facility] Blood VENOUS BLOOD / Unknown 12/01/2023 10:39 EDT 12/01/2023 17:15 EDT Provider Outr Resulting Lab IMMUNOLOGY A ND SEROLOGY ORDERABLES [facility] [address] [place] [address] documented in this encounter Visit Diagnoses Not on filedocumented in this encounter Care Teams Grain Picker Relationship Specialty Start Date End Date Magrarito Curry MD [facility] [address] [place], [place] [id number] PCP - General 09/18/21 documented as of this encounter
== END 2024-05-27 16:46 | disposition left against medical advice (07) ==
LOC: ER 14:01
PROVIDERS: Emergency Provider Emergency Medicine; PCP Student in an Organized Health Care Education/Training Program
DX: Z53.21 Procedure and treatment not carried out due to patient leaving prior to being seen by health care provider (principal)
CPT/HCPCS: 00123

== ENCOUNTER 2024-05-27 15:54 | Emergency (ER) | payer BC, SELFPAY ==
[2024-05-27 15:55] VITALS: BP 134/87; PULSE 102; RESP 13; TEMP 36; O2SAT 98
--- OUTSIDE RECORDS SUMMARY | 2024-05-27 16:16 | XMS_ITS | Referral Summary ---
Author Organization [facility] Address [address] [place] [address] Care Team Providers Care Baggage Handler Name Role Phone Margarito Curry MD Primary Care Provider [phone] Allergies Active Allergy Reactions Criticality Noted Date [...] C Antibody Negative Negative 11/03/2023 10:39 EDT [facility] Blood VENOUS BLOOD / Unknown 10/31/2023 16:55 EDT 11/01/2023 21:34 EDT Provider Outr Resulting Lab CHEMISTRY & BLOOD GAS ORDERABLES [facility] [address] [place] [address] from Last 3 Months or Most Recently Relevant to Health Maintenance Care Teams Baggage Handler Relationship Specialty Start Date End Date Margarito Curry MD [facility] [address] [place], [place] [id number] PCP - General 09/18/21
--- OUTSIDE RECORDS SUMMARY | 2024-05-27 16:16 | XMS_ITS | Encounter Summary ---
Author Organization [facility] Address [address] [place] [address] Care Team Providers Care Supervisor Phosphorus Processing Name Role Phone Margarito Curry MD Primary Care Provider [phone] Encounter Details Date Type Department Care Team (Late st Contact Info) Description 11/03/2021 Lab Requisition [facility] Pathology & Laboratory Medicine - [facility] [address] [place], [place] [phone] Outr Resulting Lab, Provider Social History Tobacco [...] 4th Generation Negative Negative 11/05/2021 9:40 EDT [facility] Comment:If acute HIV-1 infec tion is suspected in a high risk patient, submit plasma specimen for HIV-1 RNA quantitation test. Blood VENOUS BLOOD / Unknown 11/02/2021 12:50 EDT 11/03/2021 21:52 EDT Narrative [facility] - 11/05/2021 9:40 EDT Fourth Generation assay performed on the Siemens Centaur XPT. Provider Outr Resulting Lab IMMUNOLOGY A ND SEROLOGY ORDERABLES [facility] [address] [place] [address] documented in this encounter Visit Diagnoses Not on filedocumented in this encounter Additional Health Concerns Infection Onset Date Last Indicated Resolved Time Influenza 07/22/2022 07/22/2022 08/01/2022 22:1 5 EST documented as of this encounter Care Teams Supervisor Phosphorus Processing Relationship Specialty Start Date End Date Margarito Curry MD [facility] [place] [address] PCP - General 09/18/21 documented as of this encounter
--- OUTSIDE RECORDS SUMMARY | 2024-05-27 16:16 | XMS_ITS | Encounter Summary ---
Author Organization [facility] Address [address] [place] [address] Care Team Providers Care Cargo Inspector Name Role Phone Margarito Curry MD Primary Care Provider [phone] Encounter Details Date Type Department Care Team (Late st Contact Info) Description 12/01/2023 Lab Requisition [facility] Pathology & Laboratory Medicine - [facility] [address] [place], [place] [phone] Outr Resulting Lab, Provider Social History Tobacco [...] gonorrhoeae Result Negative Negative 12/02/2023 13:35 EDT [facility] Chlamydia trachomatis Result Negative Negative 12/02/2023 13:35 EDT [facility] Pap Test CERVIX UTERI STRUCTURE / Unknown 12/01/2023 10:25 EDT 12/02/2023 9:32 EDT Provider Outr Resulting Lab MICROBIOLOGY - GENERAL ORDERABLES [facility] [address] [place] [address] documented in this encounter Visit Diagnoses Not on filedocumented in this encounter Care Teams Cargo Inspector Relationship Specialty Start Date End Date Margarito Curry MD [facility] [place] [place] [address] PCP - General 09/18/21 documented as of this encounter
--- OUTSIDE RECORDS SUMMARY | 2024-05-27 16:16 | XMS_ITS | Encounter Summary ---
Author Organization [facility] Address [address] [place] [address] Care Team Providers Care Insurance Loss Adjuster Name Role Phone Margarito Curry MD Primary Care Provider Encounter Details Date Type Department Care Team (Late st Contact Info) Description 11/01/2023 Lab Requisition [facility] Pathology & Laboratory Medicine - [facility] [address] [place], [place] [phone] Outr Resulting Lab, Provider Social History Tobacco [...] 4th Generation Negative Negative 11/03/2023 10:42 EDT [facility] Comment:If acute HIV-1 infec tion is suspected in a high risk patient, submit plasma specimen for HIV-1 RNA quantitation test. Blood VENOUS BLOOD / Unknown 10/31/2023 16:55 EDT 11/01/2023 21:34 EDT Narrative [facility] - 11/03/2023 10:42 EDT Fourth Generation assay performed on the Siemens Dining Secretaryaur XPT. Provider Outr Resulting Lab IMMUNOLOGY A ND SEROLOGY ORDERABLES [facility] [address] [place], [place] [phone] documented in this encounter Visit Diagnoses Not on filedocumented in this encounter Care Teams Insurance Loss Adjuster Relationship Specialty Start Date End Date Margarito Curry MD [address] [place] [address] PCP - General 09/18/21 documented as of this encounter
--- OUTSIDE RECORDS SUMMARY | 2024-05-27 16:16 | XMS_ITS | Encounter Summary ---
Author Organization [facility] Address [address] [place] [address] Care Team Providers Care Physician Office Assistant Name Role Phone Margarito Curry MD Primary Care Provider [phone] Encounter Details Date Type Department Care Team (Late st Contact Info) Description 02/02/2024 Lab Requisition [facility] Pathology & Laboratory Medicine - [facility] [address] [place], [place] [phone] Outr Resulting Lab, Provider Social History Tobacco [...] 5.3 pg/mL 02/02/2024 22:41 EDT [facility] Blood VENOUS BLOOD / Unknown 02/02/2024 10:30 EDT 02/02/2024 22:07 EDT Provider Outr Resulting Lab CHEMISTRY & BLOOD GAS ORDERABLES Performing Organization Address City/[facility]/ZIP Co de Phone Number [facility] [address] [place], [place] [address] * T3, TOTAL (02/02/2024 10:30 EDT) T3, Total 150 97 - 169 ng/dL 02/02/2024 22:56 EDT [facility] Blood VENOUS BLOOD / Unknown 02/02/2024 10:30 EDT 02/02/2024 22:07 EDT Provider Outr Resulting Lab CHEMISTRY & BLOOD GAS ORDERABLES Performing Organization Address [facility] de Phone Number [facility] [address] [place] [address] documented in this encounter Visit Diagnoses Not on filedocumented in this encounter Care Teams Physician Office Assistant Relationship Specialty Start Date End Date Margarito Curry MD [facility] [place] [address] PCP - General 09/18/21 documented as of this encounter
--- OUTSIDE RECORDS SUMMARY | 2024-05-27 16:16 | XMS_ITS | Encounter Summary ---
Author Organization [facility] Address [address] [place] [address] Care Team Providers Care Syruper Name Role Phone Margarito Curry MD Primary Care Provider [phone] Encounter Details Date Type Department Care Team (Late st Contact Info) Description 12/02/2023 Lab Requisition [facility] Pathology & Laboratory Medicine - [facility] [address] [place] [address] Zeny Clemente MD [address] [place] [phone] Encounter for screening for infections with [...] Imaging System with Manual Evaluation 12/08/2023 11:46 [facility] Specimen Adequacy Satisfactory for Evaluation - transformation zone component present 12/08/2023 11:46 [facility] General Categorization Epithelial Cell Abnormality 12/08/2023 11:46 [facility] Descriptive Diagnosis Squamous Cell Abnormality - Low grade squamous intraepithelial lesion (LSIL). 12/08/2023 11:46 [facility] Educational Comments [facility] recommends following the ASCCP's management guidelines which may be found at www.asccp.org 12/08/2023 11:46 [facility] Attestation By the signature below, the attending physician certifies that they have personally conducted a gross and/or microscopic examination of the described specimens and rendered or confirmed the above diagnosis. 12/08/2023 11:46 [facility] at 1146 Clinical History See below 12/08/19 11:46 [facility] Performing Lab [facility] 12/08/2023 11:46 [facility] Scanned Images 12/08/2023 11:46 [facility] Pap Test CERVIX UTERI STRUCTURE / Unknown 12/01/2023 10:25 EDT 12/02/2023 13:35 EDT Zeny Clemente MD PATHOLOGY ORDERABLES [facility] [address] [place], [place] [phone] documented in this encounter Visit Diagnoses Diagnosis Encounter for screening for infections with a predominantly sexual mode of transmission documented in this encounter Care Teams Syruper Relationship Specialty Start Date End Date Margarito Curry MD [address] [place] [address] PCP - General 09/18/21 documented as of this encounter
--- OUTSIDE RECORDS SUMMARY | 2024-05-27 16:16 | XMS_ITS | Encounter Summary ---
Author Organization [facility] Address [address] [place] [address] Care Team Providers Care Tank Assembler Name Role Phone Margarito Curry MD Primary Care Provider [phone] Encounter Details Date Type Department Care Team (Late st Contact Info) Description 12/01/2023 Lab Requisition [facility] Pathology & Laboratory Medicine - [facility] [address] [place], [place] [phone] Outr Resulting Lab, Provider Social History Tobacco [...] Syphilis Serology Negative Negative 12/02/2023 10:18 EDT [facility] Blood VENOUS BLOOD / Unknown 12/01/2023 10:39 EDT 12/01/2023 17:15 EDT Provider Outr Resulting Lab IMMUNOLOGY A ND SEROLOGY ORDERABLES [facility] [address] [place] [address] documented in this encounter Visit Diagnoses Not on filedocumented in this encounter Care Teams Tank Assembler Relationship Specialty Start Date End Date Margarito Curry MD [facility] [address] [place], [place] [phone] PCP - General 09/18/21 documented as of this encounter
--- OUTSIDE RECORDS SUMMARY | 2024-05-27 16:16 | XMS_ITS | Encounter Summary ---
Author Organization [facility] Address [address] [place] [address] Care Team Providers Care Lockstitch Back Maker Name Role Phone Margarito Curry MD Primary Care Provider [phone] Encounter Details Date Type Department Care Team (Late st Contact Info) Description 12/01/2023 Lab Requisition [facility] Pathology & Laboratory Medicine - [facility] [address] [place], [place] [phone] Outr Resulting Lab, Provider Social History Tobacco [...] 4th Generation Negative Negative 12/01/2023 20:11 EDT [facility] Comment:If acute HIV-1 infec tion is suspected in a high risk patient, submit plasma specimen for HIV-1 RNA quantitation test. Blood VENOUS BLOOD / Unknown 12/01/2023 10:39 EDT 12/01/2023 17:16 EDT Narrative [facility] - 12/01/2023 20:11 EDT Fourth Generation assay performed on the Siemens Mailsuiteaur XPT. Provider Outr Resulting Lab IMMUNOLOGY A ND SEROLOGY ORDERABLES [facility] [address] [place], [place] [id number] documented in this encounter Visit Diagnoses Not on filedocumented in this encounter Care Teams Lockstitch Back Maker Relationship Specialty Start Date End Date Margarito Curry MD [address] [place] [address] PCP - General 09/18/21 documented as of this encounter
--- OUTSIDE RECORDS SUMMARY | 2024-05-27 16:16 | XMS_ITS | Encounter Summary ---
Author Organization [facility] Address [address] [place] [address] Care Team Providers Care License And Permit Specialist Name Role Phone Margarito Curry MD Primary Care Provider [phone] Encounter Details Date Type Department Care Team (Late st Contact Info) Description 11/19/2022 Lab Requisition [facility] Pathology & Laboratory Medicine - [facility] [address] [place] [address] Zeny Clemente MD [address] [place] [phone] Encounter for other general examination Social [...] 16, PCR Negative Negative 12/05/2022 15:11 EDT [facility] HPV18/45 RNA (HPV18/45) Negative Negative 12/05/2022 15:11 EDT [facility] Papanicolaou smear specimen (specimen) CERVIX UTERI STRUCTURE / Unknown 11/19/2022 13:10 EDT 12/02/2022 10:05 EDT Zeny Clemente MD MICROBIOLOGY - GENER AL ORDERABLES Performing Organization Address City/[facility] Co de Phone Number [facility] [address] [place] [address] * (ABNORMAL) HUMAN PAPILLOMAVIRUS (HPV) DETECTION-HIGH RISK TYPES (11/19/2022 13:10 EDT) HPV other High Risk types, PCR Positive( A) Negative 12/05/2022 23:41 EDT [facility] Comment:E6 OR E7 mRNA from o ne or more types of HPV types 16,18,31,33,35,39,45,51,52,56,58,59,66, and 68 is detected by software technical lead mediated amplification. High and intermediate risk HPV types are associated with most squamous intraepithelial lesions and cervical cancers. Papanicolaou smear specimen (specimen) CERVIX UTERI STRUCTURE / Unknown 11/19/2022 13:10 EDT 12/02/2022 10:05 EDT Zeny Clemente MD MICROBIOLOGY - GENER AL ORDERABLES Performing Organization Address City/[facility] Co de Phone Number [facility] [address] [place] [address] * PAP TEST (11/19/2022 13:10 EDT) Specimens A. Cervix and/or Endocervix , ThinPrep Imaging System with Manual Evaluation 12/05/2022 23:41 [facility] Specimen Adequacy Satisfactory for Evaluation - transformation zone component present 12/05/2022 23:41 [facility] General Categorization Epithelial Cell Abnormality 12/05/2022 23:41 [facility] Descriptive Diagnosis Squamous Cell Abnormality - Low grade squamous intraepithelial lesion (LSIL). 12/05/2022 23:41 [facility] Educational Comments [facility] recommends following the ASCCP's management guidelines which may be found at www.asccp.org 12/05/2022 23:41 [facility] Attestation By the signature below, the attending physician certifies that they have personally conducted a gross and/or microscopic examination of the described specimens and rendered or confirmed the above diagnosis. 12/05/2022 23:41 [facility] at 2341 Clinical History See below 12/06/19 23:41 [facility] HPV The result for the Human Papillomavirus (HPV) Detection-High Risk Types is Positive . E6 OR E7 mRNA from one or more types of HPV types 16,18,31,33,35,39 ,45,51,52,56,58,5 9,66, and 68 is detected by software technical lead mediated amplification. High and intermediate risk HPV types are associated with most squamous intraepithelial lesions and cervical cancers. Testing was performed on specimen [id number] and was resulted on 12/03/2022 1540 EDT by LENA, LAB INSTRUMENT RESULTS IN 12/05/2022 23:41 [facility] Genotyping 16 & 18/45 The results for the HPV Genotypes 16 and 18/45 are Negative for the HPV16 RNA and Negative for the HPV18/45 RNA (HPV18/45). Testing was performed on specimen [id number] and was resulted on 12/05/2022 1511 EDT by LENA, LAB INSTRUMENT RESULTS IN 12/05/2022 23:41 [facility] Performing Lab [facility] 12/05/2022 23:41 EDT [facility] Scanned Images 12/05/2022 23:41 EDT [facility] Papanicolaou smear specimen (specimen) CERVIX UTERI STRUCTURE / Unknown 11/19/2022 13:10 EDT 11/22/2022 8:18 EDT Zeny Clemente MD PATHOLOGY ORDERABLES Performing Organization Address City/[facility] Co de Phone Number [facility] [address] [place] [address] * CHLAMYDIA/N. GONORRHOEAE AMPLIFIED RNA, THINPREP (11/19/2022 13:10 EDT) Neisseria gonorrhoeae Result Negative Negative 11/21/2022 14:36 EDT [facility] Chlamydia trachomatis Result Negative Negative 11/21/2022 14:36 EDT [facility] Papanicolaou smear specimen (specimen) CERVIX UTERI STRUCTURE / Unknown 11/19/2022 13:10 EDT 11/21/2022 8:34 EDT Zeny Clemente MD MICROBIOLOGY - GENER AL ORDERABLES Performing Organization Address [facility] Co de Phone Number [facility] [address] [place] [address] documented in this encounter Visit Diagnoses Diagnosis Encounter for other general examination documented in this encounter Care Teams License And Permit Specialist Relationship Specialty Start Date End Date Margarito Curry MD [address] [place] [address] PCP - General 09/18/21 documented as of this encounter
--- OUTSIDE RECORDS SUMMARY | 2024-05-27 16:16 | XMS_ITS | Encounter Summary ---
Author Organization [facility] Address [address] [place] [address] Care Team Providers Care Plaster Lather Name Role Phone Margarito Curry MD Primary Care Provider [phone] Encounter Details Date Type Department Care Team (Late st Contact Info) Description 09/13/2022 14:45 EST Phlebotomy Only [facility] 2 Phlebotomy [address] [place], [place] [id number] Financial Supervisor, Acc Phlebotomy Other specified general medical examination [...] Quantiferon Interpretation Negative Negative 09/16/2022 13:28 EST [facility] Comment:No interferon-gamma response to M. tuberculosis antigens was detected. ??Infection with M. tuberculosis is unlikely. A single negative result does not exclude infection with M. tuberculosis. ??In patients at high risk for M. tuberculosis infection, a second test should be considered. TB1 Ag minus Nil 0.00 IU/ml 09/16/19 13:28 EST [facility] TB2 Ag minus Nil 0.00 IU/mL 09/16/19 13:28 EST [facility] Blood VENOUS BLOOD / Unknown Venipuncture / Unknown 09/13/2022 14:46 EST 09/16/2022 13:20 EST Narrative [facility] - 09/16/2022 13:28 EST Results were obtained with the [employer] QuantiFERON-TB Gold Plus CLIA. New platform in use 04/25/2021 Lawson Castaneda DO IMMUNOLOGY AND SEROL OGY ORDERABLES Performing Organization Address City/[facility] Co de Phone Number [facility] [address] [place] [address] * QUANTIFERON MITOGEN (PERFORMABLE) (09/13/2022 14:46 EST) Blood VENOUS BLOOD / Unknown Venipuncture / Unknown 09/13/2022 14:46 EST 09/13/2022 14:54 EST Lawson Castaneda DO IMMUNOLOGY AND SEROL OGY ORDERABLES Performing Organization Address City/[facility]/ZIP Co de Phone Number [facility] [address] [place] [address] * QUANTIFERON TB2 (PERFORMABLE) (09/13/2022 14:46 EST) Blood VENOUS BLOOD / Unknown Venipuncture / Unknown 09/13/2022 14:46 EST 09/13/2022 14:54 EST Lawson Greyson Leonel WOOD IMMUNOLOGY AND SEROL OGY ORDERABLES Performing Organization Address [facility] Co de Phone Number [facility] [address] [place] [address] * QUANTIFERON TB1 (PERFORMABLE) (09/13/2022 14:46 EST) Blood VENOUS BLOOD / Unknown Venipuncture / Unknown 09/13/2022 14:46 EST 09/13/2022 14:54 EST Lawson Castaneda DO IMMUNOLOGY AND SEROL OGY ORDERABLES Performing Organization Address [facility] de Phone Number [facility] [address] [place] [address] * QUANTIFERON NIL (PERFORMABLE) (09/13/2022 14:46 EST) Blood VENOUS BLOOD / Unknown Venipuncture / Unknown 09/13/2022 14:46 EST 09/13/2022 14:54 EST Lawson Castaneda DO IMMUNOLOGY AND SEROL OGY ORDERABLES Performing Organization Address [facility] Co de Phone Number [facility] [address] [place] [address] documented in this encounter Visit Diagnoses Diagnosis Other specified general medical examination- Primary documented in this encounter Care Teams Plaster Lather Relationship Specialty Start Date End Date Margarito Curry MD [facility] [place] [place] [address] PCP - General 09/18/21 documented as of this encounter
--- OUTSIDE RECORDS SUMMARY | 2024-05-27 16:16 | XMS_ITS | Encounter Summary ---
Author Organization [facility] Address [address] [place] [address] Care Team Providers Care Independent Consultant Name Role Phone Margarito Curry MD Primary Care Provider [phone] Encounter Details Date Type Department Care Team (Late st Contact Info) Description 11/03/2021 Lab Requisition [facility] Pathology & Laboratory Medicine - [facility] [address] [place], [place] [id number] Outr Resulting Lab, Provider Social History Tobacco [...] Surface Ag Negative Negative 11/05/2021 10:07 EDT [facility] Blood VENOUS BLOOD / Unknown 11/02/2021 12:50 EDT 11/03/2021 21:52 EDT Provider Outr Resulting Lab CHEMISTRY & BLOOD GAS ORDERABLES Performing Organization Address City/[facility]/ZIP Co de Phone Number [facility] [address] [place] [address] * HEPATITIS C AB W REFLEX TO HCV RNA BY PCR (11/02/2021 12:50 EDT) Hep C Antibody Negative Negative 11/05/2021 11:09 EDT [facility] Blood VENOUS BLOOD / Unknown 11/02/2021 12:50 EDT 11/03/2021 21:52 EDT Provider Outr Resulting Lab CHEMISTRY & BLOOD GAS ORDERABLES Performing Organization Address City/[facility] Co de Phone Number [facility] [address] [place] [address] documented in this encounter Visit Diagnoses Not on filedocumented in this encounter Additional Health Concerns Infection Onset Date Last Indicated Resolved Time Influenza 07/22/2022 07/22/2022 08/01/2022 22:1 5 EST documented as of this encounter Care Teams Independent Consultant Relationship Specialty Start Date End Date Margarito Curry MD [place] [address] PCP - General 09/18/21 documented as of this encounter
--- OUTSIDE RECORDS SUMMARY | 2024-05-27 16:16 | XMS_ITS | Encounter Summary ---
Author Organization [facility] Address [address] [place] [address] Care Team Providers Care Rivet Sorter Name Role Phone Margarito Curry MD Primary Care Provider [phone] Encounter Details Date Type Department Care Team (Late st Contact Info) Description 02/05/2022 Lab Requisition [facility] Pathology & Laboratory Medicine - [facility] [address] [place] [address] Zeny Clemente MD [address] [place] [phone] Encounter for other general examination Social [...] management options, if applicable. 02/06/2022 11:15 T [facility] Final Diagnosis A. CERVIX, BIOPSY: - Low-grade squamous intraepithelial lesion (MIGUEL 1). 02/06/2022 11:15 [facility] Attestation By the signature below, the attending physician certifies that they have 1) personally conducted a gross and/or microscopic examination of the described specimen(s), and/or personally interpreted the results of laboratory testing of the described specimen(s), and 2) personally rendered or confirmed the above diagnosis. 02/06/2022 11:15 [facility] at 1115 Clinical History LSIL Pap 02/06/2022 11:15 [facility] Gross Description A. Received in formalin labelled with proper patient identification (initials C, E) and cervical bx is an aggregate of light su mucinous material measuring 0.4 x 0.4 x 0.1 cm. Submitted entirely in A1. FRANKLIN ANDERSON(ASCP) 02/05/2022 19:37 02/06/2022 11:15 T [facility] Performing Lab [facility] 11:15 [facility] Scanned Images 02/06/2022 11:15 [facility] Tissue ENTIRE WALL OF CERVIX / Unknown 02/05/2022 11:22 EDT 02/05/2022 17:05 EDT Zeny Clemente MD PATHOLOGY ORDERABLES [facility] [address] [place] [address] documented in this encounter Visit Diagnoses Diagnosis Encounter for other general examination documented in this encounter Additional Health Concerns Infection Onset Date Last Indicated Resolved Time Influenza 07/22/2022 07/22/2022 08/01/2022 22:1 5 EST documented as of this encounter Care Teams Rivet Sorter Relationship Specialty Start Date End Date Margarito Curry MD [address] [place] [address] PCP - General 09/18/21 documented as of this encounter
--- OUTSIDE RECORDS SUMMARY | 2024-05-27 16:16 | XMS_ITS | Encounter Summary ---
Author Organization [facility] Address [address] [place] [address] Care Team Providers Care Tape Librarian Name Role Phone Margarito Curry MD Primary Care Provider [phone] Encounter Details Date Type Department Care Team (Late st Contact Info) Description 11/01/2023 Lab Requisition [facility] Pathology & Laboratory Medicine - [facility] [address] [place], [place] [phone] Outr Resulting Lab, Provider Social History Tobacco [...] gonorrhoeae Result Negative Negative 11/03/2023 12:58 EDT [facility] Chlamydia trachomatis Result Negative Negative 11/03/2023 12:58 EDT [facility] Swab ENDOCERVICAL STRUCTURE / Unknown 10/31/2023 16:55 EDT 11/02/2023 16:06 EDT Provider Outr Resulting Lab MICROBIOLOGY - GENERAL ORDERABLES [facility] [address] [place], [place] [address] documented in this encounter Visit Diagnoses Not on filedocumented in this encounter Care Teams Tape Librarian Relationship Specialty Start Date End Date Margarito [place] [place] [address] PCP - General 09/18/21 documented as of this encounter
--- OUTSIDE RECORDS SUMMARY | 2024-05-27 16:16 | XMS_ITS | Clinical Summary ---
Author Organization [facility] Address [address] [place] [address] Care Team Providers Care Finisher Machine Name Role Phone Margarito Curry MD Primary Care Provider [phone] Allergies Active Allergy Reactions Criticality Noted Date [...] Negative Negative 11/03/2023 10:39 EDT [facility] Blood VENOUS BLOOD / Unknown 10/31/2023 16:55 EDT 11/01/2023 21:34 EDT Provider Outr Resulting Lab CHEMISTRY & BLOOD GAS ORDERABLES [facility] [address] [place] [address] from Last 3 Months or Most Recently Relevant to Health Maintenance Care Teams Finisher Machine Relationship Specialty Start Date End Date Margarito Curry MD [facility] [address] [facility], [place] [id number] PCP - General 09/18/21
--- OUTSIDE RECORDS SUMMARY | 2024-05-27 16:16 | XMS_ITS | Encounter Summary ---
Author Organization [facility] Address [address] [place] [address] Care Team Providers Care Tax Services Manager Name Role Phone Margarito Curry MD Primary Care Provider [phone] Encounter Details Date Type Department Care Team (Late st Contact Info) Description 11/03/2021 Lab Requisition [facility] Pathology & Laboratory Medicine - [facility] [address] [place], [place] [phone] Outr Resulting Lab, Provider Social History Tobacco [...] Syphilis Serology Negative Negative 11/05/2021 11:59 EDT [facility] Blood VENOUS BLOOD / Unknown 11/02/2021 12:50 EDT 11/03/2021 21:52 EDT Provider Outr Resulting Lab IMMUNOLOGY A ND SEROLOGY ORDERABLES Performing Organization Address City/State/[facility] Co de Phone Number [facility] [address] [place] [address] documented in this encounter Visit Diagnoses Not on filedocumented in this encounter Additional Health Concerns Infection Onset Date Last Indicated Resolved Time Influenza 07/22/2022 07/22/2022 08/01/2022 22:1 5 EST documented as of this encounter Care Teams Tax Services Manager Relationship Specialty Start Date End Date Margarito Curry MD [address] [place] [address] PCP - General 09/18/21 documented as of this encounter
--- OUTSIDE RECORDS SUMMARY | 2024-05-27 16:16 | XMS_ITS | Encounter Summary ---
Author Organization [facility] Address [address] [place] [address] Care Team Providers Care Engineering Mgr Name Role Phone Margarito Curry MD Primary Care Provider [phone] Encounter Details Date Type Department Care Team (Late st Contact Info) Description 12/31/2023 Lab Requisition [facility] Pathology & Laboratory Medicine - [facility] [address] [place] [address] Zeny Clemente MD [address] [place] [phone] Encounter for other general examination Social [...] management options, if applicable. 01/02/2024 11:12 EDT [facility] Final Diagnosis A. CERVIX, 7 O' CLOCK, CYTOBRUSH: - Superficial fragments of benign squamous mucosa and endocervical glands. 01/02/2024 11:12 EDT [facility] Diagnosis Comment The specimen is markedly fragmented and poorly preserved, limiting evaluation. No definitive dysplasia is identified. Deeper sections have been examined. 01/02/2024 11:12 T [facility] Attestation There was significant resident/fellow involvement in the diagnostic evaluation of this case. By the signature below, the attending physician certifies that they have personally conducted a gross and/or microscopic examination of the described specimens and rendered or confirmed the above diagnosis. 01/02/2024 11:12 [facility] at 1112 Clinical History LSIL 01/02/2024 11:12 [facility] Gross Description A. Received in formalin on a Histologic SFT-1000 device labelled with proper patient identification (initials C, E) and 7 o'clock cervix is an aggregate of transparent su mucus and admixed su wispy tissue fragments (0.6 x 0.5 x 0.1 cm). Entirely submitted in A1. Pao Vallecillo 12/31/2023 9:10 01/02/2024 11:12 T [facility] Resident/Vikas w: Kary Javier MD 01/02/2024 11:12 T [facility] Performing Lab [facility] 01/02/2024 11:12 [facility] Scanned Images 01/02/2024 11:12 [facility] Tissue CERVIX UTERI STRUCTURE / Unknown 12/30/2023 15:20 EDT 12/31/2023 8:16 EDT Zeny Clemente MD PATHOLOGY ORDERABLES [facility] [address] [place] [address] documented in this encounter Visit Diagnoses Diagnosis Encounter for other general examination documented in this encounter Care Teams Engineering Mgr Relationship Specialty Start Date End Date Margarito Curry MD [address] [place] [address] PCP - General 09/18/21 documented as of this encounter
--- OUTSIDE RECORDS SUMMARY | 2024-05-27 16:16 | XMS_ITS | Encounter Summary ---
Author Organization [facility] Address [address] [place] [address] Care Team Providers Care Automatic Serging Machine Operator Name Role Phone Margarito Curry MD Primary Care Provider [phone] Encounter Details Date Type Department Care Team (Late st Contact Info) Description 11/01/2023 Lab Requisition [facility] Pathology & Laboratory Medicine - [facility] [address] [place], [place] [phone] Outr Resulting Lab, Provider Social History Tobacco [...] Syphilis Serology Negative Negative 11/03/2023 11:17 EDT [facility] Blood VENOUS BLOOD / Unknown 10/31/2023 16:55 EDT 11/01/2023 21:34 EDT Provider Outr Resulting Lab IMMUNOLOGY A ND SEROLOGY ORDERABLES Performing Organization Address City/[facility]/ZIP Co de Phone Number [facility] [address] [place] [address] * HEPATITIS C AB W REFLEX TO HCV RNA BY PCR (10/31/2023 16:55 EDT) Hep C Antibody Negative Negative 11/03/2023 10:39 EDT [facility] Blood VENOUS BLOOD / Unknown 10/31/2023 16:55 EDT 11/01/2023 21:34 EDT Provider Outr Resulting Lab CHEMISTRY & BLOOD GAS ORDERABLES Performing Organization Address City/[facility] Co de Phone Number [facility] [address] [place], [place] [address] documented in this encounter Visit Diagnoses Not on filedocumented in this encounter Care Teams Automatic Serging Machine Operator Relationship Specialty Start Date End Date Margarito Curry MD [address] [place] [address] PCP - General 09/18/21 documented as of this encounter
--- OUTSIDE RECORDS SUMMARY | 2024-05-27 16:16 | XMS_ITS | Encounter Summary ---
Author Organization [facility] Address [address] [place] [address] Care Team Providers Care Health Associate Name Role Phone Margarito Curry MD Primary Care Provider [phone] Encounter Details Date Type Department Care Team (Late st Contact Info) Description 07/22/2022 Lab Requisition [facility] Pathology & Laboratory Medicine - [facility] [address] [place], [place] [id number] Outr Resulting Lab, Provider Social History Tobacco [...] Result (FLARES) Positive(A) Negative 07/23/2022 1:36 EST [facility] FLU B RNA Result (FLBRES) Negative Negative 07/23/2022 1:36 EST [facility] RSV RNA Result (RSVRES) Negative Negative 07/23/2022 1:36 EST [facility] Swab ENTIRE NASOPHARYNX / Unknown 07/22/2022 12:16 EST 07/22/2022 22:23 EST Provider Outr Resulting Lab MICROBIOLOGY - GENERAL ORDERABLES Performing Organization Address City/State/[facility] Co de Phone Number [facility] [address] [place] [address] documented in this encounter Visit Diagnoses Not on filedocumented in this encounter Additional Health Concerns Infection Onset Date Last Indicated Resolved Time Influenza 07/22/2022 07/22/2022 08/01/2022 22:1 5 EST documented as of this encounter Care Teams Health Associate Relationship Specialty Start Date End Date Margarito Curry [place] [place] [address] PCP - General 09/18/21 documented as of this encounter
--- OUTSIDE RECORDS SUMMARY | 2024-05-27 16:16 | XMS_ITS | Encounter Summary ---
Author Organization [facility] Address [address] [place] [address] Care Team Providers Care Ct Scan Technologist Name Role Phone Margarito Curry MD Primary Care Provider [phone] Encounter Details Date Type Department Care Team (Late st Contact Info) Description 01/21/2023 Lab Requisition [facility] Pathology & Laboratory Medicine - [facility] [address] [place] [address] Zeny Clemente MD [address] [place] [phone] Encounter for other general examination Social [...] explore management options, if applicable. 01/23/2023 16:59 [facility] Final Diagnosis A. CERVIX, 6-7 O'CLOCK, BIOPSY: - Fragments of benign endocervix and benign squamous epithelium. B. ENDOCERVIX, CURETTAGE: - Fragments of benign endocervix. 01/23/2023 16:59 [facility] Diagnosis Comment The previous Pap test ([id number]) has been reviewed and the presence of atypical cells is confirmed. Similar abnormal cells to those seen on the Pap test are not identified in the current case. Deeper sections have been examined. 01/23/2023 16:59 [facility] Attestation By the signature below, the attending physician certifies that they have 1) personally conducted a gross and/or microscopic examination of the described specimen(s), and/or personally interpreted the results of laboratory testing of the described specimen(s), and 2) personally rendered or confirmed the above diagnosis. 01/23/2023 16:59 [facility] at 1659 Clinical History LSIL Pap/HPV + 01/23/2023 16:59 [facility] Gross Description [...] B1. Pao Pandya 01/21/2023 14:13 01/23/2023 16:59 [facility] Performing Lab [facility] 01/23/2023 16:59 [facility] Scanned Images 01/23/2023 16:59 EDT [facility] Tissue ENTIRE ENDOCERVIX / Unknown 01/20/2023 16:08 EDT 01/21/2023 8:07 EDT Tissue specimen (specimen) ENDOCERVICAL STRUCTURE / Unknown 01/20/2023 16:08 EDT 01/21/2023 8:09 EDT Zeny Clemente MD PATHOLOGY ORDERABLES [facility] [address] [place] [address] documented in this encounter Visit Diagnoses Diagnosis Encounter for other general examination documented in this encounter Care Teams Ct Scan Technologist Relationship Specialty Start Date End Date Margarito Curry MD [address] [place] [address] PCP - General 09/18/21 documented as of this encounter
--- OUTSIDE RECORDS SUMMARY | 2024-05-27 16:16 | XMS_ITS | Encounter Summary ---
Author Organization [facility] Address [address] [place] [address] Care Team Providers Care Impregnating Helper Name Role Phone Margarito Curry MD Primary Care Provider [phone] Encounter Details Date Type Department Care Team (Late st Contact Info) Description 05/01/2023 Lab Requisition [facility] Pathology & Laboratory Medicine - [facility] [address] [place], [place] [id number] Outr Resulting Lab, Provider Social History Tobacco [...] gonorrhoeae Result Negative Negative 05/02/2023 13:23 EDT [facility] Chlamydia trachomatis Result Negative Negative 05/02/2023 13:23 EDT [facility] Swab VAGINAL STRUCTURE / Unknown 04/30/2023 16:15 EDT 05/01/2023 18:08 EDT Provider Outr Resulting Lab MICROBIOLOGY - GENERAL ORDERABLES [facility] [address] [place] [address] documented in this encounter Visit Diagnoses Not on filedocumented in this encounter Care Teams Impregnating Helper Relationship Specialty Start Date End Date Margarito Curry MD [address] [place] [address] PCP - General 09/18/21 documented as of this encounter
--- OUTSIDE RECORDS SUMMARY | 2024-05-27 16:16 | XMS_ITS | Encounter Summary ---
Author Organization [facility] Address [address] [place] [address] Care Team Providers Care Plastic Block Boiler Reliner Name Role Phone Margarito Curry MD Primary Care Provider Encounter Details Date Type Department Care Team (Late st Contact Info) Description 12/01/[address] [facility] Pathology & Laboratory Medicine - [facility] [address] [place], [place] [id number] Outr Resulting Lab, Provider Social History Tobacco [...] Surface Ag Negative Negative 12/01/19 20:15 EDT [facility] Hep B Surface Ab, Quantitative <3.1 See Note mIU/mL 12/01/2023 20:15 EDT [facility] Comment: Reference Range for Hep B Surface Ab, Quant: Positive: >= 10.0 mIU/mL Negative: ??< 10.0 mIU/mL Patient is presumed to not be immune to infection with Hepatitis B Virus. Hep B Surface Ab, Qualitative Negative See Note 12/01/2023 20:15 EDT [facility] Comment: Reference Range for Hep B Surface Ab, Qual: Unvaccinated: ??Negative Vaccinated: ??Positive Hepatitis B Core Ab, Total Negative Negative 12/01/2023 20:15 EDT [facility] Hep C Antibody Negative Negative 12/01/2023 20:15 EDT [facility] Blood VENOUS BLOOD / Unknown 12/01/2023 10:39 EDT 12/01/2023 17:16 EDT Provider Outr Resulting Lab CHEMISTRY & BLOOD GAS ORDERABLES Performing Organization Address City/State/[facility] Co de Phone Number [facility] [address] [place], [place] [address] documented in this encounter Visit Diagnoses Not on filedocumented in this encounter Care Teams Plastic Block Boiler Reliner Relationship Specialty Start Date End Date Margarito Curry MD [address] [place] [address] PCP - General 09/18/21 documented as of this encounter
--- OUTSIDE RECORDS SUMMARY | 2024-05-27 16:17 | XMS_ITS | Encounter Summary ---
Author Organization [facility] Address [address] [place] [address] Care Team Providers Care Nursing Service Administrator Name Role Phone Cathy Diaz MD Primary Care Provider Margarito Curry MD Primary Care Provider [phone] Encounter Details Date Type Department Care Team (Late st Contact Info) Description 04/28/2021 Lab Requisition [facility] Pathology & Laboratory Medicine - [address] [phone] Outr Resulting Lab, Provider Social History Tobacco [...] Negative Negative 04/30/2021 14:06 EDT [facility] Chlamydia trachomatis Result Negative Negative 04/30/2021 14:06 EDT [facility] Swab ENTIRE VAGINA / Unknown 04/27/2021 12:40 EDT 04/29/2021 16:19 EDT Provider Outr Resulting Lab MICROBIOLOGY - GENERAL ORDERABLES [facility] [address] [place] [address] documented in this encounter Visit Diagnoses Not on filedocumented in this encounter Additional Health Concerns Infection Onset Date Last Indicated Resolved Time Influenza 07/22/2022 07/22/2022 08/01/2022 22:1 5 EST documented as of this encounter Care Teams Nursing Service Administrator Relationship Specialty Start Date End Date Cathy Diaz MD [address] [place] [phone] PCP - General 01/05/09 09/17/21 Margarito Curry MD [address] [place] [address] [place] [address] PCP - General 09/18/21 documented as of this encounter
--- OUTSIDE RECORDS SUMMARY | 2024-05-27 16:17 | XMS_ITS | Encounter Summary ---
Author Organization [facility] Address [address] [place] [address] Care Team Providers Care Wired Sweatband Cutter Name Role Phone Cathy Diaz MD Primary Care Provider [phone] Encounter Details Date Type Department Care Team (Late st Contact Info) Description 11/15/2009 Results Only [facility] Laboratory Services - [facility] [address] [place], [place] [address] Cathy Diaz MD [address] [place] [phone] Social History Tobacco Use Types Packs/Day Years [...] Result No Chlamydia trachomatis DNA detected by real estate executive assistant mediated amplification. [facility] GC Result No Neisseria gonorrhoeae DNA detected by real estate executive assistant mediated amplification. [facility] 11/15/2009 13:2 7 EDT 11/16/2009 13:27 EDT Cathy Diaz MD MICROBIOLOGY - GENER AL ORDERABLES [facility] [address] [place] [address] * CYTOPATHOLOGY (11/15/2009 0:00 EDT) Pathology Report: CYTOPATHOLOGY REPORT ? Reports generated via electronic interface contain original data; ? however they are lacking the format of the original report. ? Caution should be taken when reading/interpreti ng unformatted reports. ? Name: ? MALIA SCHAEFER ? Accession #: ? [id number] ? : ? 1990 (Age: 19) ??F [...] MD PATHOLOGY ORDERABLES [facility] [address] [place] [address] documented in this encounter Visit Diagnoses Not on filedocumented in this encounter Care Teams Wired Sweatband Cutter Relationship Specialty Start Date End Date Cathy Diaz MD [address] [place] [phone] PCP - General 01/05/09 09/17/21 documented as of this encounter
--- OUTSIDE RECORDS SUMMARY | 2024-05-27 16:17 | XMS_ITS | Encounter Summary ---
Author Organization [facility] Address [address] [place] [address] Care Team Providers Care Route Rider Supervisor Name Role Phone Cathy Diaz MD Primary Care Provider [phone] Encounter Details Date Type Department Care Team (Late st Contact Info) Description 07/25/2003 Results Only [facility] - Maple conversion [address] [place] [address] Maricel Lerner MD [address] [place] [phone] Social History Tobacco Use Types Packs/Day [...] ISOLATED [facility] Report Status Final [id number] [facility] 07/25/2003 20:5 9 EST 07/25/2003 20:59 EST Maricel Lerner MD MICROBIOLOGY - GENER AL ORDERABLES [facility] [address] [place] [address] documented in this encounter Visit Diagnoses Not on filedocumented in this encounter Care Teams Route Rider Supervisor Relationship Specialty Start Date End Date Cathy Diaz MD [address] [place] [phone] PCP - General 01/05/09 09/17/21 documented as of this encounter
--- OUTSIDE RECORDS SUMMARY | 2024-05-27 16:17 | XMS_ITS | Encounter Summary ---
Author Organization [facility] Address [address] [place] [address] Care Team Providers Care Vocational Training Teacher Name Role Phone Cathy Diaz MD Primary Care Provider Margarito Curry MD Primary Care Provider [phone] Encounter Details Date Type Department Care Team (Late st Contact Info) Description 05/17/2021 Lab Requisition [facility] Pathology & Laboratory Medicine - [address] [phone] Outr Resulting Lab, Provider Social History Tobacco [...] Syphilis Serology Negative Negative 05/18/2021 10:14 EDT [facility] Blood VENOUS BLOOD / Unknown 05/16/2021 11:30 EDT 05/17/2021 16:14 EDT Provider Outr Resulting Lab IMMUNOLOGY A ND SEROLOGY ORDERABLES [facility] [address] [place] [address] documented in this encounter Visit Diagnoses Not on filedocumented in this encounter Additional Health Concerns Infection Onset Date Last Indicated Resolved Time Influenza 07/22/2022 07/22/2022 08/01/2022 22:1 5 EST documented as of this encounter Care Teams Vocational Training Teacher Relationship Specialty Start Date End Date Cathy Diaz MD [address] [place] [phone] PCP - General 01/05/09 09/17/21 Margarito Curry MD [address] [place] [address] [place] [address] PCP - General 09/18/21 documented as of this encounter
--- OUTSIDE RECORDS SUMMARY | 2024-05-27 16:17 | XMS_ITS | Encounter Summary ---
Author Organization [facility] Address [address] [place] [address] Care Team Providers Care Manager Radio Name Role Phone Cathy Diaz MD Primary Care Provider [phone] Encounter Details Date Type Department Care Team (Late st Contact Info) Description 08/20/2007 Results Only [facility] - Maple conversion [address] [place] [address] Cathy Diaz MD [address] [place] [phone] Social History Tobacco Use Types Packs/Day [...] BLOOD GA S ORDERABLES Performing Organization Address [facility] Co de Phone Number [facility] [address] [place] [address] * (ABNORMAL) GLUCOSE, SERUM (08/20/2007 14:55 EST) Pathologist [facility] Glucose, Serum 66(L) 70 - 100 mg/dl [facility] 08/20/2007 14:5 5 EST 08/20/2007 20:09 EST Cathy Diaz MD CHEMISTRY & BLOOD GA S ORDERABLES Performing Organization Address [facility] de Phone Number [facility] [address] [place] [address] * FERRITIN (08/20/2007 14:55 EST) Pathologist [facility] Ferritin 16 10 - 291 ng/mL [facility] 08/20/2007 14:5 5 EST 08/20/2007 20:09 EST Cathy Diaz MD CHEMISTRY & BLOOD GA S ORDERABLES Performing Organization Address [facility] Co de Phone Number [facility] [address] [place] [address] * (ABNORMAL) HEMAGRAM (08/20/2007 14:55 EST) WBC [...] & PF4 ORD ERABLES Performing Organization Address City/[facility] Co de Phone Number [facility] [address] [place] [address] * TESTS ADDED BY PHONE (08/20/2007 14:55 EST) Tests to be added [facility] Diagnosis Code ANEMIA FLETC [facility] Who Called [facility] FOR DR[facility] Location Code [facility] 08/20/2007 14:5 5 EST 08/20/2007 20:09 EST Cathy Diaz MD CHEMISTRY & BLOOD GA S ORDERABLES Performing Organization Address [facility] de Phone Number [facility] [address] [place] [address] documented in this encounter Visit Diagnoses Not on filedocumented in this encounter Care Teams Manager Radio Relationship Specialty Start Date End Date Cathy Diaz MD [address] [place] [phone] PCP - General 01/05/09 09/17/21 documented as of this encounter
--- OUTSIDE RECORDS SUMMARY | 2024-05-27 16:17 | XMS_ITS | Encounter Summary ---
Author Organization [facility] Address [address] [place] [address] Care Team Providers Care Audiology Assistant Name Role Phone Cathy Diaz MD Primary Care Provider [phone] Encounter Details Date Type Department Care Team (Late st Contact Info) Description 12/30/2016 Results Only [facility] [phone] Zoila Rdz MD [address] [place] [phone] Social History Tobacco Use Types Packs/Day Years [...] ? MALIA LEDESMA ? Accession #: ? [id number] : ? 1990 (Age: 26) ??F ?Collect [...] Report Date: ??01/14/2017 16:49 End of Report [facility] 12/30/2016 01/02/2017 Zoila Rdz MD PATHOLOGY ORDERABLES [facility] [address] [place] [address] documented in this encounter Visit Diagnoses Not on filedocumented in this encounter Care Teams Audiology Assistant Relationship Specialty Start Date End Date Cathy Diaz MD [address] [place] [phone] PCP - General 01/05/09 09/17/21 documented as of this encounter
--- OUTSIDE RECORDS SUMMARY | 2024-05-27 16:17 | XMS_ITS | Encounter Summary ---
Author Organization [facility] Address [address] [place] [address] Care Team Providers Care Tool And Die Assembler Name Role Phone Unavailable Primary Care Provider Blanco shane Encounter Details Date Type Department Care Team (Latest Contact Info) Description 10/12/2002 15:25 EST Hospital Encounter [facility] - Other [address] [place] [address] Indra Davila MD Unknown, Provider, Discharge Disposition: [...] ? MALIA LEDESMA ? Accession #: ? [id number] ? : ? 1990 (Age: 12) ??F [...] rather than a distinctive, umbilicated papule. ??(Dr. Blood)/[facility] Microscopic Description: ? Sections consist of [...] invaginations. ??There is no appreciable inflammation. ??(Dr. Blood)/[facility] Document reviewed and electronically signed by: [...] Davila MD PATHOLOGY ORDERABLES Performing Organization Address City/State/[facility] Co de Phone Number [facility] [address] [place] [address] documented in this encounter Visit Diagnoses Not on filedocumented in this encounter
--- OUTSIDE RECORDS SUMMARY | 2024-05-27 16:17 | XMS_ITS | Encounter Summary ---
Author Organization [facility] Address [address] [place] [address] Care Team Providers Care Grass Cutter Name Role Phone Cathy Diaz MD Primary Care Provider [phone] Margarito Curry MD Primary Care Provider [phone] Encounter Details Date Type Department Care Team (Late st Contact Info) Description 05/17/2021 Lab Requisition [facility] Pathology & Laboratory Medicine - [address] [phone] Outr Resulting Lab, Provider Social History Tobacco [...] 4th Generation Negative Negative 05/18/2021 10:36 EDT [facility] Comment: If acute HIV-1 infection is suspected in a high risk ??patient, submit plasma specimen for HIV-1 RNA quantitation test. Fourth Generation assay performed on the Siemens Centaur. Blood VENOUS BLOOD / Unknown 05/16/2021 11:30 EDT 05/17/2021 16:13 EDT Provider Outr Resulting Lab IMMUNOLOGY A ND SEROLOGY ORDERABLES [facility] [address] [place] [address] documented in this encounter Visit Diagnoses Not on filedocumented in this encounter Additional Health Concerns Infection Onset Date Last Indicated Resolved Time Influenza 07/22/2022 07/22/2022 08/01/2022 22:1 5 EST documented as of this encounter Care Teams Grass Cutter Relationship Specialty Start Date End Date Cathy Diaz MD [address] [place] [phone] PCP - General 01/05/09 09/17/21 Margarito Curry MD [address] [place] [address] [place] [address] PCP - General 09/18/21 documented as of this encounter
--- OUTSIDE RECORDS SUMMARY | 2024-05-27 16:17 | XMS_ITS | Encounter Summary ---
Author Organization [facility] Address [address] [place] [address] Care Team Providers Care Thread Tool Grinder Set Up Operator Name Role Phone Cathy Diaz MD Primary Care Provider [phone] Encounter Details Date Type Department Care Team (Late st Contact Info) Description 06/16/2007 Before PRISM Converted Visit (Maple) [facility] - Maple conversion [address] [place] [address] Josie Santillan MD [address] [place] [phone] Social History Tobacco Use Types Packs/Day Years [...] Josie Santillan MD - terry Job ID: [id number] Doc ID: [id number] cc: Cathy Diaz MD documented in this encounter Care Teams Thread Tool Grinder Set Up Operator Relationship Specialty Start Date End Date Cathy Diaz MD [address] [place] [phone] PCP - General 01/05/09 09/17/21 documented as of this encounter
--- OUTSIDE RECORDS SUMMARY | 2024-05-27 16:17 | XMS_ITS | Encounter Summary ---
Author Organization [facility] Address [address] [place] [address] Care Team Providers Care Farm Mechanic Name Role Phone Unavailable Primary Care Provider Unavailabl e Encounter Details Date Type Department Care Team (Late st Contact Info) Description 06/16/2007 8:57 EDT Hospital Encounter [facility] [address] [place] [address] Josie Santillan MD [address] [place] [phone] Social History Tobacco Use Types [...]
--- OUTSIDE RECORDS SUMMARY | 2024-05-27 16:17 | XMS_ITS | Encounter Summary ---
Author Organization [facility] Address [address] [place] [address] Care Team Providers Care Real Estate Agent Name Role Phone Cathy Diaz MD Primary Care Provider [phone] Encounter Details Date Type Department Care Team (Late st Contact Info) Description 05/11/2018 Results Only [facility] [phone] Leigh Ann Bauer[address] [address] Social History Tobacco Use Types [...] ? MALIA LEDESMA ? Accession #: ? [id number] ? : ? 1990 (Age: 27) ??F ?Collect Date: ? 05/11/2018 ? Location: ? [facility] ? Receive Date: ? 05/12/2018 ? Provider: LEIGH ANN BAUER CNM Copy to: [facility] LPN ? Final Report SPECIMEN ADEQUACY ? Satisfactory for Evaluation - transformation zone component present GENERAL CATEGORIZATION ? Epithelial Cell Abnormality INTERPRETATION ? Squamous Cell Abnormality - Atypical squamous cells, undetermined significance (ASC-US). Fungal organisms present morphologically consistent with Judi species. EDUCATIONAL NOTES/RECOMMENDATI ONS ? [facility] recommends following ASCCP's 2012 Updated Consensus Guidelines [...] 56,58,59,66, and 68 is detected by medical transcription radiology mediated amplification. High and intermediate risk HPV [...] confirmed the above diagnosis. End of Report [facility] 05/11/2018 05/12/2018 Leigh Ann Bauer [facility] PATHOLOGY ORDERABLES [facility] [address] [place] [phone] documented in this encounter Visit Diagnoses Not on filedocumented in this encounter Care Teams Real Estate Agent Relationship Specialty Start Date End Date Cathy Diaz MD [address] [place] [phone] PCP - General 01/05/09 09/17/21 documented as of this encounter
--- OUTSIDE RECORDS SUMMARY | 2024-05-27 16:17 | XMS_ITS | Encounter Summary ---
Author Organization [facility] Address [address] [place] [address] Care Team Providers Care Product Development Engineer Name Role Phone Cathy Diaz MD Primary Care Provider [phone] Encounter Details Date Type Department Care Team (Latest Contact Info) Description 03/14/2016 7:37 EDT - 03/14/2016 23:59 EDT Hospital Encounter [address] [address] Unknown, Provider, Discharge Disposition: Home or Self [...] or Self Longterm documented in this encounter Plan of Treatment Not on file documented as of this encounter Visit Diagnoses Not on filedocumented in this encounter Care Teams Product Development Engineer Relationship Specialty Start Date End Date Cathy Diaz MD [address] [place] [phone] PCP - General 01/05/09 09/17/21 documented as of this encounter
--- OUTSIDE RECORDS SUMMARY | 2024-05-27 16:17 | XMS_ITS | Encounter Summary ---
Author Organization [facility] Address [address] [place] [address] Care Team Providers Care Self Pay Specialist Name Role Phone Unavailable Primary Care Provider Unavailabl e Encounter Details Date Type Department Care Team (Latest Contact Info) Description 09/07/2008 21:22 EST Hospital Encounter [facility] - Other [address] [place] [address] Cathy Diaz MD [address] [place] [phone] Discharge Disposition: Home or Self Care Social [...] Result No Chlamydia trachomatis DNA detected by coal trammer mediated amplification. [facility] Result No Neisseria gonorrhoeae DNA detected by coal trammer mediated amplification. [facility] 09/26/2008 7:43 EST 09/27/2008 7:43 EST aCthy Diaz MD MICROBIOLOGY - GENER AL ORDERABLES Performing Organization Address [facility] Co de Phone Number [facility] [address] [place] [address] * FERRITIN (09/07/2008 16:45 EST) Ferritin 36 10 - 291 ng/mL [facility] 09/07/2008 16:4 5 EST 09/07/2008 20:28 EST Cathy Diaz MD CHEMISTRY & BLOOD GA S ORDERABLES Performing Organization Address [facility] Co de Phone Number [facility] [address] [place] [address] * TESTS ADDED BY PHONE (09/07/2008 16:45 EST) Tests to be added REJI [facility] Diagnosis Code ANEMIA FLENE[facility] Who Called YASIR FOR DR CATHY [facility] Location Code [facility] 09/07/2008 16:4 5 EST 09/07/2008 20:28 EST Cathy Diaz MD CHEMISTRY & BLOOD GA S ORDERABLES Performing Organization Address [facility] de Phone Number [facility] [address] [place] [address] * (ABNORMAL) HEMAGRAM AND DIFFERENTIAL (09/07/2008 16:45 [...] [facility] ABS Basophils 0.02 K/cmm [facility] Type of Diff: Automated [facility] 09/07/2008 16:4 5 EST 09/07/2008 20:28 EST Cathy Diaz MD PACKAGES & DNA PROBE ORDERABLES Performing Organization Address [facility] de Phone Number [facility] [address] [place] [address] * MONO-TEST (09/07/2008 16:45 EST) Pope-Test Neg NEG [facility] 09/07/2008 16:4 5 EST 09/07/2008 20:28 EST Cathy Diaz MD CHEMISTRY & BLOOD GA S ORDERABLES Performing Organization Address [facility] de Phone Number [facility] [address] [place] [address] * COMPREHENSIVE METABOLIC PANEL (09/07/2008 16:45 EST) [...] GA S ORDERABLES [facility] [address] [place] [address] documented in this encounter Visit Diagnoses Not on filedocumented in this encounter
--- OUTSIDE RECORDS SUMMARY | 2024-05-27 16:17 | XMS_ITS | Encounter Summary ---
Author Organization [facility] Address [address] [place] [address] Care Team Providers Care Design Chief Name Role Phone Unavailable Primary Care Provider Unavailabl e Encounter Details Date Type Department Care Team (Latest Contact Info) Description 08/20/2007 9:05 EST - 08/20/2007 11:59 EST Hospital Encounter [facility] - Other [address] [place] [address] Cathy Diaz MD [address] [place] [phone] Discharge Disposition: Home or Self Care [...]
--- OUTSIDE RECORDS SUMMARY | 2024-05-27 16:17 | XMS_ITS | Encounter Summary ---
Author Organization [facility] Address [address] [place] [address] Care Team Providers Care Armature Rewinder Name Role Phone Cathy Diaz MD Primary Care Provider [phone] Margarito Curry MD Primary Care Provider [phone] Encounter Details Date Type Department Care Team (Late st Contact Info) Description 04/07/2020 Lab Requisition [facility] Pathology & Laboratory Medicine - [address] [phone] Outr Resulting Lab, Provider Social History Tobacco [...] gonorrhoeae Result Negative Negative 04/10/2020 14:02 EDT [facility] Chlamydia trachomatis Result Negative Negative 04/10/2020 14:02 EDT [facility] Urine URINE / Unknown 04/06/2020 1 6:30 EDT 04/07/2020 15:33 EDT Narrative [facility] - 04/10/2020 14:02 EDT A first catch urine specimen is acceptable for detection of Gonorrhea and Chlamydia, but might detect up to 10% fewer infections when compared with vaginal and endocervical swab samples. Provider Outr Resulting Lab MICROBIOLOGY - GENERAL ORDERABLES [facility] [address] [place] [address] documented in this encounter Visit Diagnoses Not on filedocumented in this encounter Additional Health Concerns Infection Onset Date Last Indicated Resolved Time Influenza 07/22/2022 07/22/2022 08/01/2022 22:1 5 EST documented as of this encounter Care Teams Armature Rewinder Relationship Specialty Start Date End Date Cathy Diaz MD [address] [place] [phone] PCP - General 01/05/09 09/17/21 Margarito Curry MD [address] [place] [address] PCP - General 09/18/21 documented as of this encounter
--- OUTSIDE RECORDS SUMMARY | 2024-05-27 16:17 | XMS_ITS | Encounter Summary ---
Author Organization [facility] Address [address] [place] [address] Care Team Providers Care Horse Exerciser Name Role Phone Cathy Diaz MD Primary Care Provider [phone] Margarito Curry MD Primary Care Provider [phone] Encounter Details Date Type Department Care Team (Late st Contact Info) Description 11/01/2020 Lab Requisition [facility] Pathology & Laboratory Medicine - [address] [address] Janel Bernal, CLINICAL SECRETARY [address] [place] [address] Encounter for other general examination [...] System with Manual Evaluation 11/09/2020 11:27 EDT [facility] Specimen Adequacy Satisfactory for Evaluation - transformation zone component present 11/09/2020 11:27 EDT [facility] General Categorization Negative for intraepithelial lesion or malignancy 11/09/2020 11:27 EDT [facility] Attestation . 11/09/2020 11:27 EDT [facility] at 1127 Clinical History See below 11/10/19 11:27 EDT [facility] Performing Lab [facility] 11/09/2020 11:27 EDT [facility] Scanned Images 11/09/2020 11:27 EDT [facility] Papanicolaou smear specimen (specimen) CERVIX UTERI STRUCTURE / Unknown 11/01/2020 8:40 EDT 11/02/2020 11:02 EDT Janel A Gabe CLINICAL SECRETARY PATHOLOGY ORDERAB LES [facility] [address] [place] [address] * (ABNORMAL) CHLAMYDIA/N. GONORRHOEAE AMPLIFIED RNA, THINPREP (11/01/2020 8:40 EDT) Neisseria gonorrhoeae Result Negative Negative 11/02/2020 13:53 EDT [facility] Chlamydia trachomatis Result Positive(A) Negative 11/02/2020 13:53 EDT [facility] Papanicolaou smear specimen (specimen) CERVIX UTERI STRUCTURE / Unknown 11/01/2020 8:40 EDT 11/02/2020 7:57 EDT Clifton A Gabe CLINICAL SECRETARY MICROBIOLOGY - GE NERAL ORDERABLES [facility] [address] [place] [address] documented in this encounter Visit Diagnoses Diagnosis Encounter for other general examination documented in this encounter Additional Health Concerns Infection Onset Date Last Indicated Resolved Time Influenza 07/22/2022 07/22/2022 08/01/2022 22:1 5 EST documented as of this encounter Care Teams Horse Exerciser Relationship Specialty Start Date End Date Cathy Diaz MD [address] [place] [phone] PCP - General 01/05/09 09/17/21 Margarito Curry MD [address] [place] [address] PCP - General 09/18/21 documented as of this encounter
--- OUTSIDE RECORDS SUMMARY | 2024-05-27 16:17 | XMS_ITS | Encounter Summary ---
Author Organization [facility] Address [address] [place] [address] Care Team Providers Care Head Correction Officer Name Role Phone Nesha Waldrop MD Primary Care Provider [phone] Reason for Visit * Reason Comments Alcohol [...] 22:03 EDT - 04/09/2011 9:[address] [facility] Emergency Department - [address] [phone] Kyle Marin MD [address] [place] [phone] Mitzy Vinson MD [address] [place] [phone] Vijay Colon MD Emergency, MD Tip [...] ACUTE ALCOHOL INTOXICATION: AFTER YOUR CHILD'S VISIT (SWEDISH) documented in this encounter Medications at Time [...] relays pt's ex-boyfriend was [facility] and had unk med that pt may [...] encounter Miscellaneous Notes * Scanned Note-Null - Home Specialist, Scan - 04/08/2011 0000 EDT * Scanned Note-Null - Home Specialist, Scan - 04/08/2011 0000 EDT * Scanned Note-Null - Home Specialist, Scan - 04/08/2011 0000 EDT documented in [...] MD URINALYSIS O RDERABLES Performing Organization Address [facility] Co de Phone Number [facility] [address] [place] [address] * HCG (04/08/2011 22:35 EDT) HCG <4 <4 mIU/ml [facility] Comment: Reference Range: Positive = >10 Borderline = 4-10 ??recommend repeat. Negative = <4 Moderate hemolysis Blood specimen (specimen) 04/08/2011 22:35 EDT 04/08/2011 22:41 EDT Kyle Marin MD CHEMISTRY & BLOOD GAS ORDERABLES Performing Organization Address [facility] de Phone Number [facility] [address] [place] [address] * SALICYLATE (04/08/2011 22:35 EDT) Salicylate <1.0 mg/dl [facility] Comment: ??Negative = <2 mg/dl Therapeutic = <20 mg/dl Toxic = >30 mg/dl Moderate hemolysis Blood specimen (specimen) 04/08/2011 22:35 EDT 04/08/2011 22:41 EDT Kyle Marin MD CHEMISTRY & BLOOD GAS ORDERABLES Performing Organization Address [facility] de Phone Number [facility] [address] [place] [address] * ACETAMINOPHEN (04/08/2011 22:35 EDT) Acetaminophen <10.0 ug/ml [facility] Comment: ??Therapeutic range: ??10 - 30 ug/mL Possible toxicity: ??150 - 200 ug/mL Probable toxicity: ??>200 ug/mL Moderate hemolysis Blood specimen (specimen) 04/08/2011 22:35 EDT 04/08/2011 22:41 EDT Kyle Marin MD CHEMISTRY & BLOOD GAS ORDERABLES Performing Organization Address [facility] de Phone Number [facility] [address] [place] [address] * (ABNORMAL) ETHANOL, BLOOD (04/08/2011 22:35 EDT) Ethanol 286(H) <10 mg/dl [facility] Comment:Moderate hemolysis Blood specimen (specimen) 04/08/2011 22:35 EDT 04/08/2011 22:41 EDT Kyle Marin MD CHEMISTRY & BLOOD GAS ORDERABLES Performing Organization Address [facility] de Phone Number [facility] [address] [place] [address] * (ABNORMAL) POCT ALCOHOL BREATH TEST (04/08/2011 22:30 EDT) Ethanol Lvl 0.250(A) 0.000 % BPA POINT OF CARE 04/08/2011 22:3 0 EDT Kyle Marin MD POINT OF CAR E TEST ORDERABLES POINT OF CARE documented in this encounter Visit Diagnoses Diagnosis Very severe alcohol intoxication ([facility]) Alcohol abuse, unspecified Anxiety Anxiety state, unspecified [...] 04/08/2011 documented in this encounter Care Teams Head Correction Officer Relationship Specialty Start Date End Date Nesha Waldrop MD [address] [place] [phone] PCP - General 01/05/09 09/17/21 documented as of this encounter
--- OUTSIDE RECORDS SUMMARY | 2024-05-27 16:17 | XMS_ITS | Encounter Summary ---
Author Organization [facility] Address [address] [place] [address] Care Team Providers Care Plate Sensitizer Name Role Phone Margarito Curry MD Primary Care Provider [phone] Reason for Visit * Reason Comments Anxiety Chest Pain Encounter Details Date Type Department Care Team (Late st Contact Info) Description 10/04/2021 0:18 EST - 10/04/2021 2:16 EST Emergency [facility] Emergency Department - [address] [phone] Cassi David PA-C [address] [facility], Level [address] [place] [address] Anxiety (Primary Dx) Discharge Disposition: [...] is overwhelming, please contact Crisis Services at [phone]. documented in this encounter Medications at Time [...] exam for emergent medical conditions at the [facility] on 10/04/2021 Chief Complaint Panic [...] most recently presented to the ED at [place] on Friday as she had run out of her home lorazepam. The patient reports that she has a plan for admission to [facility]. She is adamant there is no SI or HI and is looking forward to going to [facility] for further management. History was provided [...] the patient is planned to go to [facility] on Friday. Theyare comfortable with the [...] five days with [facility]. Aggravating factor isdeath of mother. Received valium [...] EDT) 10/30/2021 16:1 9 EDT Scan 2 Filing Writer PROCEDURE/MINOR NEDRA GICAL ORDERABLES * EKG 12-LEAD (10/04/2021 0:33 EST) 10/04/2021 0:33 EST Narrative [facility] EKG - 10/30/2021 16:14 EDT ?[facility] Emergency ? Test Date: ?2021-10-04 Pat Name: ? MALIA LEDESMA ? Department: ?? ED ? Room: ? GT40 Gender: ? Female ? Telecom Engineer: ?? : ?1990 ? Requested By: BERNICE Bernal Order Number: [id number] ? Reading MD: ?? JUDIT ALETA MD ? Measurements Intervals ?Jerome ? Rate: ? 78 ? P: ?42 OR: ? 123 ?QRS: ?11 QRSD: ? 81 ? T: ?20 QT: ? 363 ? QTc: ?416 ? Interpretive Statements SINUS RHYTHM WITH SINUS ARRHYTHMIA No previous ECG available for comparison I reviewed the tracing and have either agreed or edited the findings in this report. Electronically Signed On 10-30-2021 16:14:32 EDT by JUDIT RIVER MD. Procedure Note Judit River MD - 10/30/2021 [facility] Emergency Test Date: 2021-10-04 Pat Name: MALIA LEDESMA Department: ED Room: GT40 Gender: Female Telecom Engineer: : 1990 Requested By: BERNICE Bernal Order Number: [id number] Reading MD: JUDIT MORTON Measurements Intervals Jerome Rate: 78 P: 42 OR: 123 QRS: 11 QRSD: 81 T: 20 QT: 363 QTc: 416 Interpretive Statements SINUS RHYTHM WITH SINUS ARRHYTHMIA No previous ECG available for comparison I reviewed the tracing and have either agreed or edited the findings inthis report. Electronically Signed On 10-30-2021 16:14:32 EDT by LUCAS PORTER. Steve Dos Santos MD CARDIAC ECG ORDERABL ES [facility] EKG documented in this encounter Visit Diagnoses [...] 10/04/2021 documented in this encounter Care Teams Plate Sensitizer Relationship Specialty Start Date End Date Margarito Curry MD [address] [place] [address] PCP - General 09/18/21 documented as of this encounter
--- OUTSIDE RECORDS SUMMARY | 2024-05-27 16:17 | XMS_ITS | Encounter Summary ---
Author Organization [facility] Address [address] [place] [address] Care Team Providers Care Pole Truck Driver Name Role Phone Cathy Diaz MD Primary Care Provider [phone] Encounter Details Date Type Department Care Team (Latest Contact Info) Description 11/15/2009 13:13 EDT - 11/15/2009 13:16 EDT Hospital Encounter [facility] - Other [address] [place] [address] Cathy Diaz MD [address] [place] [phone] Discharge Disposition: Home or Self Care Social [...] on filedocumented in this encounter Care Teams Pole Truck Driver Relationship Specialty Start Date End Date Cathy Diaz MD [address] [place] [phone] PCP - General 01/05/09 09/17/21 documented as of this encounter
--- OUTSIDE RECORDS SUMMARY | 2024-05-27 16:17 | XMS_ITS | Encounter Summary ---
Author Organization [facility] Address [address] [place] [address] Care Team Providers Care Corporation Secretary Name Role Phone Margarito Curry MD Primary Care Provider [phone] Encounter Details Date Type Department Care Team (Late st Contact Info) Description 09/30/2021 13:00 EST - 09/30/2021 14:17 EST Emergency [facility] Emergency Department - [address] [address] Dereje Allen PA-C [address] [place] [address], [address] [place] [phone] Alcohol withdrawal syndrome without complication (HCC-CMS) (HCC) [...] Code Departure Means Destination Home or Self Prison documented in this encounter ED Notes * Dereje Allen PA-C - 09/30/2021 1316 EST This patient received an evaluation and medical screening exam for emergent medical conditions via Telemedicine by the [facility] on 09/30/2021 Today's visit was provided through telemedicine video conferencing: The location of the patient : [facility] The location of the provider:emergency department The [...] Zoom. The patient was located at the [facility] and the ED provider was located at the Emergency Department. The [facility] staff member was present for portions [...] 1303 EST Number to call per registration [phone] documented in this encounter Plan of Treatment [...] documented as of this encounter Care Teams Corporation Secretary Relationship Specialty Start Date End Date Margarito Curry MD [facility] [place] [address] PCP - General 09/18/21 documented as of this encounter
--- OUTSIDE RECORDS SUMMARY | 2024-05-27 16:17 | XMS_ITS | Encounter Summary ---
Author Organization [facility] Address [address] [place] [address] Care Team Providers Care Commercial Lines Account Manager Name Role Phone Margarito Curry MD Primary Care Provider [phone] Encounter Details Date Type Department Care Team [...] on filedocumented in this encounter Care Teams Commercial Lines Account Manager Relationship Specialty Start Date End Date Margarito Curry MD [place] [address] PCP - General 09/18/21 documented as of this encounter
--- OUTSIDE RECORDS SUMMARY | 2024-05-27 16:17 | XMS_ITS | Encounter Summary ---
Author Organization [facility] Address [address] [place] [address] Care Team Providers Care Pre K Teacher Name Role Phone Cathy Diaz MD Primary Care Provider [phone] Encounter Details Date Type Department Care Team (Latest Contact Info) Description 05/11/2018 13:51 EDT - 05/11/2018 23:59 EDT Hospital Encounter [address] [address] Unknown, Provider, Discharge Disposition: Home or Self [...] on filedocumented in this encounter Care Teams Pre K Teacher Relationship Specialty Start Date End Date Cathy Diaz MD [address] [place] [phone] PCP - General 01/05/09 09/17/21 documented as of this encounter
--- OUTSIDE RECORDS SUMMARY | 2024-05-27 16:17 | XMS_ITS | Encounter Summary ---
Author Organization [facility] Address [address] [place] [address] Care Team Providers Care Job Captain Name Role Phone Cathy Diaz MD Primary Care Provider [phone] Margarito Curry MD Primary Care Provider Encounter Details Date Type Department Care Team (Late st Contact Info) Description 04/25/2020 Lab Requisition [facility] Pathology & Laboratory Medicine - [address] [phone] Outr Resulting Lab, Provider Social History Tobacco [...] Lyme Ab Negative Negative 04/26/2020 10:52 EDT [facility] Comment:New 3rd generation a ssay in use 01/26/2020 Blood VENOUS BLOOD / Unknown 04/23/2020 12:05 EDT 04/25/2020 16:40 EDT Provider Outr Resulting Lab IMMUNOLOGY A ND SEROLOGY ORDERABLES [facility] [address] [place] [address] documented in this encounter Visit Diagnoses Not on filedocumented in this encounter Additional Health Concerns Infection Onset Date Last Indicated Resolved Time Influenza 07/22/2022 07/22/2022 08/01/2022 22:1 5 EST documented as of this encounter Care Teams Job Captain Relationship Specialty Start Date End Date Cathy Diaz MD [address] [place] [phone] PCP - General 01/05/09 09/17/21 Margarito Curry MD [address] [place] [address] [place] [address] PCP - General 09/18/21 documented as of this encounter
--- OUTSIDE RECORDS SUMMARY | 2024-05-27 16:17 | XMS_ITS | Encounter Summary ---
Author Organization [facility] Address [address] [place] [address] Care Team Providers Care Electrical And Radio Aircraft Mechanic Name Role Phone Unavailable Primary Care Provider Unavailabl e Encounter Details Date Type Department Care Team (Latest Contact Info) Description 04/24/2007 11:36 EDT - 04/24/2007 11:59 EDT Hospital Encounter [facility] - Other [address] [place] [address] Cathy Diaz MD [address] [place] [phone] Discharge Disposition: Home or Self Care [...]
--- OUTSIDE RECORDS SUMMARY | 2024-05-27 16:17 | XMS_ITS | Encounter Summary ---
Author Organization [facility] Address [address] [place] [address] Care Team Providers Care Salesperson Florist Supplies Name Role Phone Cathy Diaz MD Primary Care Provider [phone] Encounter Details Date Type Department Care Team (Late st Contact Info) Description 03/14/2016 Results Only [facility] [phone] Tod Hough Social History Tobacco Use Types [...] ? MALIA LEDESMA ? Accession #: ? [id number] : ? 1990 (Age: 25) ??F ?Collect [...] intraepithelial lesion (LSIL). EDUCATIONAL NOTES/RECOMMENDATI ONS ? [facility] recommends following ASCCP's 2012 Updated Consensus Guidelines for the Management of Abnormal Cervical Cancer Screening Tests and Cancer Precursors (JLGTD, 2013; 17(5):S1-S27). ??Consensus guidelines are available online at www.asccp.org. ? Document reviewed and electronically signed by: ? JOSE TAN MD ? Report Date: ??03/27/2016 15:59 End of Report [facility] 03/14/2016 03/19/2016 Tod Hough PATHOLOGY ORDERABLES [facility] [address] [place] [address] documented in this encounter Visit Diagnoses Not on filedocumented in this encounter Care Teams Salesperson Florist Supplies Relationship Specialty Start Date End Date Cathy Diaz MD [address] [place] [phone] PCP - General 01/05/09 09/17/21 documented as of this encounter
--- OUTSIDE RECORDS SUMMARY | 2024-05-27 16:17 | XMS_ITS | Encounter Summary ---
Author Organization [facility] Address [address] [place] [address] Care Team Providers Care Backroom Associate Name Role Phone Unavailable Primary Care Provider Unavailabl e Encounter Details Date Type Department Care Team (Late st Contact Info) Description 07/25/2003 11:52 EST - 07/25/2003 11:59 EST Hospital Encounter [facility] - Other [address] [place] [address] Maricel Lerner MD [address] [place] [phone] Discharge Disposition: Auto Discharge Social History [...]
--- OUTSIDE RECORDS SUMMARY | 2024-05-27 16:17 | XMS_ITS | Encounter Summary ---
Author Organization [facility] Address [address] [place] [address] Care Team Providers Care Transfill Technician Name Role Phone Cathy Diaz MD Primary Care Provider [phone] Encounter Details Date Type Department Care Team (Late st Contact Info) Description 04/28/2019 Results Only [facility] [phone] [address] Social History Tobacco Use Types [...] ? MALIA LEDESMA ? Accession #: ? [id number] ? : ? 1990 (Age: 28) ??F ?Collect Date: ? 04/28/2019 ? Location: ? [facility] ? Receive Date: ? 04/29/2019 ? Provider: AGGIE MCCAIN CNM Copy to: TAMICA ELLIOTT ADJUNCT PSYCHOLOGY INSTRUCTOR ? Final Report SPECIMEN ADEQUACY ? Satisfactory [...] types 16,18,31,33,35, 39,45,51,52,56,58, 59,66, and 68 by adjunct philosophy faculty mediated amplification. Comments Document reviewed and electronically signed by: ? System Interface ? Report date: 05/05/2019 By the signature above, the attending physician certifies that he/she has personally conducted a gross and/or microscopic examination of the described specimens and rendered or confirmed the above diagnosis. End of Report [facility] 04/28/2019 04/29/2019 Aggie Mccain [facility] PATHOLOGY ORDERABLES [facility] [address] [place] [address] documented in this encounter Visit Diagnoses Not on filedocumented in this encounter Care Teams Transfill Technician Relationship Specialty Start Date End Date Cathy Diaz MD [address] [place] [phone] PCP - General 01/05/09 09/17/21 documented as of this encounter
--- OUTSIDE RECORDS SUMMARY | 2024-05-27 16:17 | XMS_ITS | Encounter Summary ---
Author Organization [facility] Address [address] [place] [address] Care Team Providers Care Resource Manager Forester Name Role Phone Margarito Curry MD Primary Care Provider [phone] Encounter Details Date Type Department Care Team (Late st Contact Info) Description 11/02/2021 Lab Requisition [facility] Pathology & Laboratory Medicine - [facility] [address] [place] [address] Margarito Curry MD [address] [place] [address] [phone] Encounter for other general examination Social History [...] Imaging System with Manual Evaluation 11/12/2021 11:23 [facility] Specimen Adequacy Satisfactory for Evaluation - transformation zone component present 11/12/2021 11:23 T [facility] General Categorization Epithelial Cell Abnormality 11/12/2021 11:23 [facility] Descriptive Diagnosis Squamous Cell Abnormality - Low grade squamous intraepithelial lesion (LSIL). 11/12/2021 11:23 [facility] Educational Comments [facility] recommends following ASCCP's 2012 Updated Consensus Guidelines for the Management of Abnormal Cervical Cancer Screening Tests and Cancer Precursors (JLGTD, 2013; 17(5):S1-S27). Consensus guidelines are available online at www.asccp.org. 11/12/2021 11:23 [facility] Attestation By the signature below, the attending physician certifies that they have personally conducted a gross and/or microscopic examination of the described specimens and rendered or confirmed the above diagnosis. 11/12/2021 11:23 [facility] at 1123 Clinical History See below 11/13/19 11:23 [facility] Performing Lab [facility] 11/12/2021 11:23 [facility] Scanned Images 11/12/2021 11:23 [facility] Papanicolaou smear specimen (specimen) CERVIX UTERI STRUCTURE / Unknown 11/02/2021 12:30 EDT 11/05/2021 14:36 EDT Margarito Curry MD PATHOLOGY ORDERABLES [facility] [address] [place] [id number] * CHLAMYDIA/N. GONORRHOEAE AMPLIFIED RNA, THINPREP (11/02/2021 12:30 EDT) Neisseria gonorrhoeae Result Negative Negative 11/05/2021 15:27 EDT [facility] Chlamydia trachomatis Result Negative Negative 11/05/2021 15:27 EDT [facility] Papanicolaou smear specimen (specimen) CERVIX UTERI STRUCTURE / Unknown 11/02/2021 12:30 EDT 11/05/2021 8:36 EDT Margarito Curry MD MICROBIOLOGY - GENER AL ORDERABLES [facility] [address] [place] [address] documented in this encounter Visit Diagnoses Diagnosis Encounter for other general examination documented in this encounter Additional Health Concerns Infection Onset Date Last Indicated Resolved Time Influenza 07/22/2022 07/22/2022 08/01/2022 22:1 5 EST documented as of this encounter Care Teams Resource Manager Forester Relationship Specialty Start Date End Date Margarito Curry MD [address] [place] [address] PCP - General 09/18/21 documented as of this encounter
--- OUTSIDE RECORDS SUMMARY | 2024-05-27 16:17 | XMS_ITS | Encounter Summary ---
Author Organization [facility] Address [address] [place] [address] Care Team Providers Care Production Metal Sprayer Name Role Phone Cathy Diaz MD Primary Care Provider [phone] Margarito Curry MD Primary Care Provider [phone] Encounter Details Date Type Department Care Team (Late st Contact Info) Description 05/17/2021 Lab Requisition [facility] Pathology & Laboratory Medicine - [address] [id number] Outr Resulting Lab, Provider Social History Tobacco [...] Surface Ag Negative Negative 05/18/2021 10:10 EDT [facility] Blood VENOUS BLOOD / Unknown 05/16/2021 11:30 EDT 05/17/2021 16:14 EDT Provider Outr Resulting Lab CHEMISTRY & BLOOD GAS ORDERABLES [facility] [address] [place] [address] documented in this encounter Visit Diagnoses Not on filedocumented in this encounter Additional Health Concerns Infection Onset Date Last Indicated Resolved Time Influenza 07/22/2022 07/22/2022 08/01/2022 22:1 5 EST documented as of this encounter Care Teams Production Metal Sprayer Relationship Specialty Start Date End Date Cathy Diaz MD [address] [place] [phone] PCP - General 01/05/09 09/17/21 Margarito Curry MD [address] [place] [address] [place] [address] PCP - General 09/18/21 documented as of this encounter
--- OUTSIDE RECORDS SUMMARY | 2024-05-27 16:17 | XMS_ITS | Encounter Summary ---
Author Organization [facility] Address [address] [place] [address] Care Team Providers Care Alignment Specialist Name Role Phone Unavailable Primary Care Provider Unavailabl e Encounter Details Date Type Department Care Team (Latest Contact Info) Description 09/26/2008 16:[address] [facility] - Other [address] [place] [address] Cathy Diaz MD [address] [place] [phone] Discharge Disposition: Home or Self Care Social [...]
--- OUTSIDE RECORDS SUMMARY | 2024-05-27 16:17 | XMS_ITS | Encounter Summary ---
Author Organization [facility] Address [address] [place] [address] Care Team Providers Care Canal Boat Operator Name Role Phone Cathy Waldrop MD Primary Care Provider [phone] Encounter Details Date Type Department Care Team (Late st Contact Info) Description 04/24/2007 Results Only [facility] [address] [place] [address] Cathy Waldrop MD [address] [place] [phone] Social History Tobacco Use Types Packs/Day [...] Result No Neisseria gonorrhoeae DNA detected by credit controller mediated amplification. [facility] Report Status Final [id number] [facility] Specimen Description Cervix [facility] 04/24/2007 23:2 4 EDT 04/24/2007 23:24 EDT Cathy Waldrop MD MICROBIOLOGY - GENER AL ORDERABLES Performing Organization Address [facility] de Phone Number [facility] [address] [place] [address] * CHLAMYDIA TRACHOMATIS AMPLIFIED PROBE (04/24/2007 23:24 EDT) Specimen Description Cervix [facility] Result No Chlamydia trachomatis DNA detected by credit controller mediated amplification. [facility] Report Status Final [id number] [facility] 04/24/2007 23:2 4 EDT 04/24/2007 23:24 EDT Cathy Waldrop MD MICROBIOLOGY - GENER AL ORDERABLES Performing Organization Address [facility] de Phone Number [facility] [address] [place] [address] * CYTOPATHOLOGY (04/24/2007 0:00 EDT) Pathology Report: CYTOPATHOLOGY REPORT Reports generated via electronic interface contain original data; however they are lacking the format of the original report. Caution should be taken when reading/interpreti ng unformatted reports. Name: ? MALIA SCHAEFER ? Accession #: ? [id number] : ? 1990 (Age: 16) ??F ?Collect Date: ? 04/24/2007 Location: ? [facility] ? Receive Date: ? 04/27/2007 Provider: ?CATHY WALDROP MD Copy to: ? Specimen/Source: ?ThinPrep Pap Test, Cervix/Endocervix, processed on [employer] ThinPrep Imaging System, with manual evaluation Last [...] Waldrop MD PATHOLOGY ORDERABLES Performing Organization Address City/State/[facility] Co de Phone Number [facility] [address] [place] [address] documented in this encounter Visit Diagnoses Not on filedocumented in this encounter Care Teams Canal Boat Operator Relationship Specialty Start Date End Date Cathy Waldrop MD [address] [place] [phone] PCP - General 01/05/09 09/17/21 documented as of this encounter
--- OUTSIDE RECORDS SUMMARY | 2024-05-27 16:17 | XMS_ITS | Encounter Summary ---
Author Organization [facility] Address [address] [place] [address] Care Team Providers Care Pediatrician Managing Partner Name Role Phone Margarito Curry MD Primary Care Provider [phone] Encounter Details Date Type Department Care Team (Latest Contact Info) Description 10/08/[address] [facility] Pathology & Laboratory Medicine - [facility] [address] [place] [address] Pedro Whitney [address] [place] [phone] Encounter for screening for infections with a [...] gonorrhoeae Result Negative Negative 10/09/2021 15:07 EST [facility] Chlamydia trachomatis Result Negative Negative 10/09/2021 15:07 EST [facility] Urine URINE / Unknown 10/06/2021 1 3:00 EST 10/08/2021 22:09 EST Narrative [facility] - 10/09/2021 15:07 EST A first catch urine specimen is acceptable for detection of Gonorrhea and Chlamydia, but might detect up to 10% fewer infections when compared with vaginal and endocervical swab samples. Pedro Whitney MICROBIOLOGY - GENER AL ORDERABLES Performing Organization Address City/State/[facility] Co de Phone Number [facility] [address] [place] [phone] documented in this encounter Visit Diagnoses Diagnosis Encounter for screening for infections with a predominantly sexual mode of transmission Encounter for screening for other infectious and parasitic diseases documented in this encounter Additional Health Concerns Infection Onset Date Last Indicated Resolved Time Influenza 07/22/2022 07/22/2022 08/01/2022 22:1 5 EST documented as of this encounter Care Teams Pediatrician Managing Partner Relationship Specialty Start Date End Date Margarito Curry MD [address] [place] [address] PCP - General 09/18/21 documented as of this encounter
--- OUTSIDE RECORDS SUMMARY | 2024-05-27 16:17 | XMS_ITS | Encounter Summary ---
Author Organization [facility] Address [address] [place] [address] Care Team Providers Care Customer Experience Professional Name Role Phone Cathy Diaz MD Primary Care Provider [phone] Margarito Curry MD Primary Care Provider [phone] Encounter Details Date Type Department Care Team (Late st Contact Info) Description 06/21/2021 Lab Requisition [facility] Pathology & Laboratory Medicine - [address] [id number] Outr Resulting Lab, Provider Social History Tobacco [...] Outr Resulting Lab MICROBIOLOGY - GENERAL ORDERABLES [facility] [address] [place] [address] * COVID-19 TESTING (06/20/2021 10:45 EDT) COVID-19 rt-PCR Result Negative Negative 06/22/2021 10:37 EDT [facility] Comment: This test has [...] performed using the beto SARS-CoV-2 assay ([employer] on the Beto 6800 System Performing Lab Beto [address] [facility] 06/22/2021 10:37 EDT [facility] Swab 06/20/2021 10:4 5 EDT 06/21/2021 16:48 EDT Provider Outr Resulting Lab MICROBIOLOGY - GENERAL ORDERABLES [facility] [address] [place] [address] documented in this encounter Visit Diagnoses Not on filedocumented in this encounter Additional Health Concerns Infection Onset Date Last Indicated Resolved Time Influenza 07/22/2022 07/22/2022 08/01/2022 22:1 5 EST documented as of this encounter Care Teams Customer Experience Professional Relationship Specialty Start Date End Date Cathy Diaz MD [address] [place] [phone] PCP - General 01/05/09 09/17/21 Margarito Curry MD [address] [place] [address] PCP - General 09/18/21 documented as of this encounter
--- NOTE | 2024-05-27 16:18 | W.ED.GENAD ---
Discharge Plan Disposition Patient Disposition: Eloped Condition: Stable Discharge Details Clinical Impression: Acute alcohol intoxication Primary Care Provider: Randolph Harvey ED Provider: Scott Florez Home Meds and New Rx's Prescriptions: No Action sertraline 50 mg tablet 100 mg PO HS Patient Comments: TAKE ONE TABLET BY MOUTH EVERY DAY WITH 25MG TABLET FOR A TOTAL DAILY DOSE OF 75MG clonidine HCl 0.1 mg tablet 0.1 mg PO DAILY PRN Patient Comments: TAKE ONE TABLET BY MOUTH EVERY 6 HOURS NEEDED FOR ANXIETY OR WITHDRAWAL SYMPTOMS MAY TAKE 2 TABLETS AT BEDTIME FOR SLEEP AND ANXIETY disulfiram 250 mg tablet 250 mg PO DAILY Patient Comments: TAKE ONE TABLET BY MOUTH EVERY DAY lisdexamfetamine 50 mg capsule 40 mg PO DAILY Patient Comments: TAKE ONE CAPSULE BY MOUTH EVERY DAY multivitamin [Multiple Vitamins] Tablet 1 tab PO QAM Qty: 30 0RF Discharge Instructions Additional Instructions: Patient eloped. Referrals: [facility] [Outside] Randolph Harvey [Primary Care Provider] - Discharge Data Discharge Date/Time-TO BE ENTERED AT DEPARTURE: 05/27/24 16:46 HPI General Date/Time Provider Initiated Documentation: 05/27/24 16:00. HPI Narrative: 33 year-old female presents to ED today by POV/ambulating for the fourth time today with a chief complaint of demanding to be admitted for detox from alcohol- patient has been drinking all day- and has left from the waiting room multiple times to go drink more alcohol when she would not be compliant with the process to evaluate her for detox- she has been offered [facility] and they were paged- but she left before they got here earlier today. Patient is asking for a benzo taper, stating she will go home and drink tonight, and start them in the morning. Quality described as needing detox- states she wants a 3 day admission in ICU on phenobarb, no radiation to history of ETOH withdrawal seizure, patient is not exhibiting signs of withdrawal here in the ED. Severity is described as severe. Palliating factors include actively drinking numerous (15) white claws today. Provoking factors include nothing specific. Events leading up to the incident/Associated Symptoms: Patient has an outpatient [employer] [facility], states she cannot go to rehab and be away from her children. Patient not anticoagulated. Related Data Home Medications ?Medication ?Instructions ?Recorded ?Confirmed sertraline 50 mg tablet 100 mg PO HS 02/02/24 05/27/24 disulfiram 250 mg tablet 250 mg PO DAILY 02/09/24 05/27/24 lisdexamfetamine 50 mg capsule 40 mg PO DAILY 02/10/24 05/27/24 multivitamin (Multiple Vitamins 1 tab PO QAM #30 tabs 02/12/24 05/27/24 tablet) clonidine HCl 0.1 mg tablet 0.1 mg PO DAILY PRN 03/17/24 05/27/24 Previous Rx's ?Medication ?Instructions ?Recorded multivitamin (Multiple Vitamins 1 tab PO QAM #30 tabs 02/12/24 tablet) Allergies Allergy/AdvReac Type Severity Reaction Status Date / Time Penicillins AdvReac Intermediate Hives Verified 05/27/24 13:28 General Stated Complaint: ETOHWithdr LETITIA: 3 Exam Narrative Exam Narrative: GENERAL APPEARANCE: Well-nourished, non-toxic, awake and alert, atraumatic, no acute distress. Mildly intoxicated. SKIN: Warm, pink, dry, intact, without rashes/lesions/ulcerations. HEAD: Normocephalic, atraumatic, normal hair distribution for gender/age. EYES: Normal conjunctiva, no exudates on lids/lashes, no scleral jaundice. ENT: Nares patent, no circumoral cyanosis, no facial swelling NECK: Supple, trachea midline, painless cervical ROM. LUNGS/CHEST: Non-labored respirations, normal A/P diameter, symmetrical expansion, no chest wall deformity HEART (CV/PV): No peripheral edema, no JVD. ABDOMEN: Soft, non-distended, no guarding. MSK: Normal ROM, no swelling/deformity to bilateral UEs or LEs, moving all extremities without weakness, no cyanosis, spine midline without tenderness, normal curvature. NEURO: Mental Status AAOx4 - alert to person, place, time, events No facial droop, no forehead involvement. Motor: No focal weakness - strength 5/5 in bilateral UEs and LEs, proximal and distal, symmetric. Sensory: sensation intact to light touch globally. Gait normal: patient ambulated without ataxia into ED room. PSYCH: euthymic, cooperative, pleasant, appropriate speech Course Vital Signs Vital signs: Vital Signs Temperature 36.0 C L 05/27/24 15:55 Pulse 102 H 05/27/24 15:55 Respiratory Rate 13 10/10/24 15:55 Blood Pressure 134/87 05/27/24 15:55 Pulse Oximetry 98 05/27/24 15:55 Temperature 36.0 C L 05/27/24 15:55 Pulse 102 H 05/27/24 15:55 Respiratory Rate 13 05/27/24 15:55 Blood Pressure 134/87 05/27/24 15:55 Blood Pressure Position Sitting 05/27/24 15:55 Pulse Oximetry 98 05/27/24 15:55 Oxygen Delivery Method Room Air 05/27/24 15:55 Oxygen Flow Rate 0 05/27/24 15:55 Pain Level 0 05/27/24 15:55 Medical Decision Making This dictation utilizes [id number] dictation software and may contain unedited grammatical errors. 33 year-old female presents to ED today by POV/ambulating for the fourth time today with a chief complaint of demanding to be admitted for detox from alcohol- patient has been drinking all day- and has left from the waiting room multiple times to go drink more alcohol when she would not be compliant with the process to evaluate her for detox- she has been offered [facility] and they were paged- but she left before they got here earlier today. Patient is asking for a benzo taper, stating she will go home and drink tonight, and start them in the morning. Quality described as needing detox- states she wants a 3 day admission in ICU on phenobarb, no radiation to history of ETOH withdrawal seizure, patient is not exhibiting signs of withdrawal here in the ED. Severity is described as severe. Palliating factors include actively drinking numerous (15) white claws today. Provoking factors include nothing specific. Events leading up to the incident/Associated Symptoms: Patient has an outpatient [employer], states she cannot go to rehab and be away from her children. Patients' medical history: History of benzodiazepine abuse, history of alcohol abuse, alcoholic hepatitis, smoker, generalized anxiety disorder and depression. Family and social history: Daily drinker severe heavy use. Pertinent exam findings / vital signs include no active tremulous movements, managing secretions well, ambulating without any staggering, not slurring her speech, appears mildly intoxicated. Differential / pathologies of concern include alcohol abuse. Diagnostic studies of: -Held for now as patient needs to speak to Recovery and last ETOH intake was possibly moments ago, not in withdrawal. Interventions of: -[facility] Recovery. ED Course/Assessment/Plan: 33-year-old female presents for the fourth time today, has been actively drinking around 15 white claws today, the patient is demanding to be brought directly upstairs without waiting in the ER, and placed on phenobarbital and placed in an ICU bed immediately for a 3-day detox. The patient is otherwise demanding a benzo taper with noted history of benzodiazepine abuse and her history. Patient is unwilling to go through the process to try to find her help for detox, we counseled her many times today that we cannot provide her benzodiazepines with her history and active drinking as it may suppress her respiratory drive, she states that she wants to leave and actively drink further solidifying our reasoning for not providing benzodiazepines at this visit. The patient was in no acute distress was walking without staggering, managing her secretions, had no concerns for active withdrawal, no tremulous movements., The patient eventually agreed to wait for resource recovery specialist and start the process, I did community health counselor her that many people have to wait in the ER many hours before being admitted and that she would have to cooperate with our processes and obtaining a medical diagnosis for admission. The patient then eloped and said she would return tomorrow. The patient has an outpatient resource recovery specialist. Findings not consistent with active withdrawal, known seizure history. Disposition of acute alcohol intoxication. Patient verbalized understanding of the plan and return to ED criteria and engaged in shared decision making. Medical Records Medical records reviewed: Yes I reviewed the patient's medical records. Quality:SDOH Health Related Social Needs: Health related social needs housing instability, housed, with risk of homelessness(Z59.811) Health related social needs details FLOR PFSH All Active Problems (Updated 05/27/24 @ 16:35 by FRANKLIN Coelho) Acute alcohol intoxication (Acute) Smoker (Acute) Alcoholic hepatitis (Chronic) Alcohol use disorder, severe, dependence (Chronic) Herpes simplex type 1 infection (Acute 12/19/16) Eczema (Chronic) ADHD (attention deficit hyperactivity disorder), combined type (Chronic) Generalized anxiety disorder (Chronic) Depression (Acute) Medical History (Updated 05/27/24 @ 16:35 by FRANKLIN Coelho) Benzodiazepine abuse Presence of intrauterine contraceptive device (IUD) Paragard IUD placed 12/01/23 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 Vanessa Bryan MD History of calculus of kidney during (12/19/16) History of substance abuse (12/19/16) History of acute pyelonephritis Surgical History EGD w/Bx for H.Pylori (07/29/08) [facility] Cystoscopy (01/05/18) [facility] Urology with R ureteral stent placement Family History Father , OD at age 42. Substance abuse Essential hypertension Mother Mental disorder Bipolar d/o Neoplasm small cell neuroendocrine carcinoma Sister Substance abuse Mental disorder Bipolar d/o Brother Substance abuse Mental disorder Bipolar d/o Brother Substance abuse Mental disorder Bipolar d/o Grandmother Neoplasm Breast CA Social History Smoking/Tobacco Use Status: Current every day Tobacco Type: cigarettes and e-cigarettes Tobacco: How many years used: 10 Quit status: has quit before Counseling given: provider counseling Smoking risk assessment performed?: Yes Alcohol Intake: current Alcohol Intake frequency: 3 or more drinks per day Alcohol type: beer, wine and hard liquor Details: Decided to quit drinking. Stopped 01/2019 Drug use: Never Substance use type: marijuana Details: Pt states she drinks about 20 white claws on a daily basis 05/27/24 Adopted: No Foster care: No Household members: significant other and children Housing: apartment Number of Children: 2 current occupation: [employer] Pets and animals: Yes (1 dog) What type of physical activity do you participate in: regular exercise Duration: other Details: cleaning Frequency: daily Do you feel safe at home: Yes Do you feel safe in your relationship?: Yes Female Reproductive History Menstrual Duration of menses: 6-7 days control method: copper IUCD History History 2 Para 2 Hx # Term Pregnancies 2 Multiple births 0 Hx # Pregnancies 0 Ectopic pregnancies 0 AB induced 0 Hx Number of Living Children 2 AB spontaneous 0 Past Pregnancies Del. Date GA/Weeks # Preg Succ Route Wgt Sex Labor Lgth Anesthesia Location Prov Complic 11/20/16 40 vaginal 2920.001 g Female 9 hours regional 12/22/18 40 No vaginal 3685.438 g Female Vale Bauer CNM Delivery Date: 11/20/16 Last Updated by: Vale Bauer Delivered at [place]
== END 2024-05-27 16:46 | disposition left against medical advice (07) ==
PROVIDERS: Emergency Provider Physician Assistant; PCP Student in an Organized Health Care Education/Training Program
DX: F10.120 Alcohol abuse with intoxication, uncomplicated (principal); F17.210 Nicotine dependence, cigarettes, uncomplicated; F17.290 Nicotine dependence, other tobacco product, uncomplicated; Z53.29 Procedure and treatment not carried out because of patient's decision for other reasons
CPT/HCPCS: 99283

== ENCOUNTER 2024-05-28 14:29 | Inpatient (IN) | payer BC, SELFPAY ==
[2024-05-28] VITALS (19 sets, daily range): BP systolic 130–149; BP diastolic 86–100; PULSE 73–120; RESP 11–26; TEMP 36.7–36.9; O2SAT 96–100
--- NOTE | 2024-05-28 14:30 | RT.EKG_ITS ---
APPROVED REPORT Exam: Resting ECG Reason for Exam: Detox, tachycardia Patient Location: E HR:101 bpm ECG Measurements Heart Rate 101 AXIS NC 122 P 52 QRSd 69 QRS 69 QT 331 T 60 QTc 429 Conclusion Sinus tachycardia, rate 101 No interval abnormalities No STEMI
--- NOTE | 2024-05-28 14:49 | ED.GENADUL_ITS ---
Discharge Plan Disposition Patient Disposition: Admit to [facility] Condition: Stable Discharge Details Chief Complaint: ETOHWithdr Clinical Impression: Alcohol withdrawal, Depression, Generalized anxiety disorder, ADHD (attention deficit hyperactivity disorder), combined type, Alcohol use disorder, severe, dependence Primary Care Provider: Randolph Harvey ED Provider: Emili Ferreira Home Meds and New Rx's Prescriptions: No Action sertraline 50 mg tablet 100 mg PO HS Patient Comments: TAKE ONE TABLET BY MOUTH EVERY DAY WITH 25MG TABLET FOR A TOTAL DAILY DOSE OF 75MG clonidine HCl 0.1 mg tablet 0.1 mg PO DAILY PRN Patient Comments: TAKE ONE TABLET BY MOUTH EVERY 6 HOURS NEEDED FOR ANXIETY OR WITHDRAWAL SYMPTOMS MAY TAKE 2 TABLETS AT BEDTIME FOR SLEEP AND ANXIETY disulfiram 250 mg tablet 250 mg PO DAILY Patient Comments: TAKE ONE TABLET BY MOUTH EVERY DAY lisdexamfetamine 50 mg capsule 40 mg PO DAILY Patient Comments: TAKE ONE CAPSULE BY MOUTH EVERY DAY multivitamin [Multiple Vitamins] Tablet 1 tab PO QAM Qty: 30 0RF HPI General Mode of arrival: ambulatory . Date/Time Provider Initiated Documentation: 05/28/24 14:33 . Limitations to Documentation: no limitations . Information obtained by: patient and old records reviewed . HPI Narrative: HPI: This is a 33-year-old female patient with a past medical history significant for alcohol use disorder without a history of alcohol withdrawal seizures, and history of anxiety, depression, and ADHD, who is presenting for evaluation for alcohol withdrawal symptoms. Patient was seen 4 times in this emergency department yesterday, and each time left our facility either without being seen or AGAINST MEDICAL ADVICE/eloped, stating that she cannot sit still when she starts to feel withdrawal syndromes, and that she needed to go home and drink. The patient's last alcoholic beverage was at 2 AM, she typically drinks white claws, states that she woke up this morning and immediately presented for an evaluation here in the emergency department. She states that she feels very anxious, tremulous, and was noted to be tachycardic in triage.. The patient reports that she is interested in engaging with detox resources, states that she has difficulty with rapid and early relapses, has required admission in the past for phenobarbital. Has a history of benzodiazepine use disorder. Exam: Gen: Awake and alert, in no apparent distress HEENT: Non-icteric sclera, pupils are equal and reactive bilaterally, EOMs full Neck: Supple Lungs: No apparent respiratory distress, normal respiratory effort. CV: Appears well perfused strong and symmetrical distal pulses, heart with tachycardic rate but regular rhythm Abdomen: Non-distended, soft MSK: Moves 4 extremities without apparent limitation in ROM Skin: Visualized skin without rashes, cyanosis. Neuro: Normal Gait, no obvious focal deficits or facial asymmetry. Speaks in full, clear sentences. The patient has a mild tremor with extension of the hands bilaterally, subtle tongue fasciculations appreciated, no asterixis Psych: Appropriate for situation. MDM: This is a 33-year-old female patient presenting for evaluation of alcohol withdrawal. My differential includes but is not limited to alcohol withdrawal, patient has no history of alcohol withdrawal seizures, has experienced hallucin ations in the past. I considered intoxication, metabolic electrolyte derangement, kidney injury, anemia. Considered infection such as urinary tract infection, comorbid substance use. On this evaluation, compared to priors, the patient does appear to be in early alcohol withdrawal with tremors and anxiety with tachycardia. We will obtain laboratory studies to include CBC, CMP, magnesium, ethanol, urinalysis and UDS. I will obtain an EKG. I contacted the recovery coaches to come to the emergency department and meet with the patient. The patient is not an appropriate candidate for a Librium taper, given her high risk of comorbid alcohol use, her lack of responsible family member or friend who could assist her with this medication taper. ED Course: I independently interpreted the laboratory studies, which show no significant leukocytosis, anemia, or thrombocytopenia. The chemistry panel is without evidence of electrolyte abnormality other than a mild hypernatremia to 149, no evidence for kidney dysfunction, or liver injury. Urinalysis with hematuria, no infectious symptoms. Ethanol level modestly elevated to 97, urine drug screen negative. The patient had a long conversation with the population health coach, and I had a shared decision-making conversation with the admitting hospitalist given the patient's history of DTs and her moderate withdrawal symptoms. Ultimately, the decision was made to start this patient on phenobarbital, 5 mg/kg per our protocol, and admit her to medicine for ongoing workup and management. The patient remained hemodynamically improved while under my care, was calm and cooperative and transferred from our department without incident. Emili Ferreira MD Related Data Home Medications ?Medication ?Instructions ?Recorded ?Confirmed sertraline 50 mg tablet 100 mg PO HS 02/02/24 05/28/24 disulfiram 250 mg tablet 250 mg PO DAILY 02/09/24 05/28/24 lisdexamfetamine 50 mg capsule 40 mg PO DAILY 02/10/24 05/28/24 multivitamin (Multiple Vitamins 1 tab PO QAM #30 tabs 02/12/24 05/28/24 tablet) clonidine HCl 0.1 mg tablet 0.1 mg PO DAILY PRN 03/17/24 05/28/24 Previous Rx's ?Medication ?Instructions ?Recorded multivitamin (Multiple Vitamins 1 tab PO QAM #30 tabs 02/12/24 tablet) Allergies Allergy/AdvReac Type Severity Reaction Status Date / Time Penicillins AdvReac Intermediate Hives Verified 05/28/24 14:44 General Stated Complaint: ETOHWithdr LETITIA: 2 Course Vital Signs Vital signs: Vital Signs Temperature 36.7 C 05/28/24 14:34 Pulse 120 H 05/28/24 14:34 Respiratory Rate 18 05/28/24 14:34 Blood Pressure 149/100 H 05/28/24 14:34 Temperature 36.7 C 05/28/24 14:34 Temperature Source Oral 05/28/24 14:34 Pulse 120 H 05/28/24 14:34 Respiratory Rate 18 05/28/24 14:34 Respiratory Effort Normal, Non-Labored 05/28/24 14:45 Blood Pressure 149/100 H 05/28/24 14:34 Blood Pressure Position Sitting 05/28/24 14:34 Oxygen Delivery Method Room Air 05/28/24 14:34 Oxygen Flow Rate 0 05/28/24 14:34 Medical Decision Making Quality:SDOH Health Related Social Needs: Health related social needs housing instability, house d, with risk of homelessness(Z59.811) Health related social needs details FLOR PFSH All Active Problems (Updated 05/28/24 @ 16:58 by Emili Ferreira MD) Alcohol withdrawal (Acute) Acute alcohol intoxication (Acute) Smoker (Acute) Alcoholic hepatitis (Chronic) Alcohol use disorder, severe, dependence (Chronic) Herpes simplex type 1 infection (Acute 12/19/16) Eczema (Chronic) ADHD (attention deficit hyperactivity disorder), combined type (Chronic) Generalized anxiety disorder (Chronic) Depression (Acute) Medical History (Updated 05/28/24 @ 16:58 by Emili Ferreira MD) Benzodiazepine abuse Presence of intrauterine contraceptive device (IUD) Paragard IUD placed 12/01/23 History of cervical dysplasia December 2022: LSIL/HPV+ -->Ullin: pending January 2022: colp --> CIN1 October 2021: LSIL/No HPV October 2020: Normal pap/No HPV Apr 2019: Normal pap/Neg HPV Apr 2018: ASCUS/HPV+ Neoplasm of uncertain behavior, unspecified [place] [facility] [place]. Vanessa Bryan MD History of calculus of kidney during (12/19/16) History of substance abuse (12/19/16) History of acute pyelonephritis Surgical History EGD w/Bx for H.Pylori (07/29/08) [facility]ystoscopy [place]01/05/18[place] [facility] [place]teral [place] Family History Father , OD at age 42. Substance abuse Essential hypertension Mother Mental disorder Bipolar d/o Neoplasm small cell neuroendocrine carcinoma Sister Substance abuse Mental disorder Bipolar d/o Brother Substance abuse Mental disorder Bipolar d/o Brother Substance abuse Mental disorder Bipolar d/o Grandmother Neoplasm Breast CA Social History Smoking/Tobacco Use Status: Current every day Tobacco Type: cigarettes and e- cigarettes Tobacco: How many years used: 10 Quit status: has quit before Counseling given: provider counseling Smoking risk assessment performed?: Yes Alcohol Intake: current Alcohol Intake frequency: 3 or more drinks per day Alcohol type: beer, wine and hard liquor Details: Decided to quit drinking. Stopped 01/2019 Drug use: Never Substance use type: marijuana Details: Pt states she drinks about 20 white claws on a daily basis Adopted: No Foster care: No Household members: significant other and children Housing: apartment Number of Children: 2 current occupation: [employer] Pets and animals: Yes (1 dog) What type of physical activity do you participate in: regular exercise Duration: other Details: cleaning Frequency: daily Do you feel safe at home: Yes Do you feel safe in your relationship?: Yes Female Reproductive History Menstrual Duration of menses: 6-7 days control method: copper IUCD History History 2 Para 2 Hx # Term Pregnancies 2 Multiple births 0 Hx # Pregnancies 0 Ectopic pregnancies 0 AB induced 0 Hx Number of Living Children 2 AB spontaneous 0 Past Pregnancies Del. Date GA/Weeks # Preg Succ Route Wgt Sex Labor Lgth Anesth esia Location [facility] 11/20/16 40 vaginal 2920.001 g Female 9 hours regional 12/22/18 40 No vaginal 3685.438 g Female Sudhir Bauer CNM Delivery Date: 11/20/16 Last Updated by: Vale Bauer Delivered at [facility] Have you Been Recently Intoxicated or Drunk Within the Last 30 days?: Yes Have you Ever Experienced Previous Episodes of Alcohol Withdrawal?: Yes Have you ever Experienced Delirium Tremens(DT)s?: Yes Have you ever undergone Alcohol Rehabilitation Treatment (i.e, inpt ot outpatient treatment programs)?: Yes Have you ever Experienced Blackouts?: Yes Have you ever Combined Alcohol with other Downers within the last 90 days?: No Have you ever Combined Alcohol with any other Substance of Abuse during the last 90 days?: Yes Positive Blood Alcohol level on Presentation? [PCS.BAL]: No Evidence of Increased Autonomic Activity (i.e. HR>120, tremor, sweating, agitation, nausea)?: Yes Result: 8
[2024-05-28 15:05] LABS: Bilirubin Negative (Negative); Blood Moderate (Negative); Clarity Clear (Clear); Glucose Negative (Negative); Ketones Negative (Negative); Leukocyte Esterase Negative (Negative); Nitrite Negative (Negative); Specific Gravity 1.025 (1.005-1.025); Urobilinogen 0.2 mg/dL (Up to 0.2)
[2024-05-28 15:18] LABS: *AMPHETAMINES SCREEN URINE Negative (Negative); *BARBITURATES SCREEN URINE Negative (Negative); *BENZODIAZEPINES SCREEN URINE Negative (Negative); Cannabinoids THC Negative (Negative); Cocaine Screen,Urine Negative (Negative); METHADONE URINE SCREEN Negative (Negative); OPIATES URINE SCREEN Negative (Negative)
[2024-05-28 15:24] LABS: Tricyclic Antidepressants Negative (Negative)
[2024-05-28 15:28] LABS: Abs Immature Grans 0.02 10^3/uL (0.0-0.06); Absolute Basophil Count 0.06 10^3/uL (0.0-0.2); Absolute Eosinophil Count 0.07 10^3/uL (0.0-0.7); Absolute Lymphocyte Count 0.86 10^3/uL (1.2-3.4); Absolute Monocyte Count 0.36 10^3/uL (0.1-0.8); Absolute Neutrophil Count 6.72 10^3/uL (1.2-6.7); Basophils % 0.7 %; Eosinophils % 0.9 %; HCT 43.1 % (36.0-46.0); Immature Grans % 0.2 %; Lymphocytes % 10.6 %; MCH 30.8 pg (27.0-33.0); MCHC 32.5 % (32.0-36.0); MCV 95 fL (80-95); MPV 9.6 fL (8.0-11.0); Monocytes % 4.4 %; Neutrophils % 83.2 %; Platelet Count 310 10^3/uL (130-400); RBC 4.54 10^6/uL (3.93-5.22); RDW 14.4 % (11.7-14.6); RDW-SD 50.4 fL; WBC 8.09 10^3/uL (4.4-10.8)
[2024-05-28 15:35] LABS: Bacteria Rare HPF (Negative); Crystals Negative HPF (Negative); Epithelial Cells Few HPF (Negative); Mucus Moderate (Negative)
[2024-05-28 15:36] LABS: C & S Indicated? No; Casts Negative LPF (Negative)
--- OUTSIDE RECORDS SUMMARY | 2024-05-28 15:40 | XMS_ITS | Encounter Summary ---
Author Organization [facility] Address [address] [place] [address] Care Team Providers Care Manager Community Name Role Phone Margarito Curry MD Primary Care Provider [phone] Encounter Details Date Type Department Care Team (Late st Contact Info) Description 11/01/2023 Lab Requisition [facility] Pathology & Laboratory Medicine - [facility] [address], [place] [id number] Outr Resulting Lab, Provider Social History Tobacco [...] 4th Generation Negative Negative 11/03/2023 10:42 EDT [facility] Comment:If acute HIV-1 infec tion is suspected in a high risk patient, submit plasma specimen for HIV-1 RNA quantitation test. Blood VENOUS BLOOD / Unknown 10/31/2023 16:55 EDT 11/01/2023 21:34 EDT Narrative [facility] - 11/03/2023 10:42 EDT Fourth Generation assay performed on the [employer] XPT. Provider Outr Resulting Lab IMMUNOLOGY A ND SEROLOGY ORDERABLES [facility] [address], [place] [phone] documented in this encounter Visit Diagnoses Not on filedocumented in this encounter Care Teams Manager Community Relationship Specialty Start Date End Date Margarito Curry MD [address] [place] [address] PCP - General 09/18/21 documented as of this encounter
--- OUTSIDE RECORDS SUMMARY | 2024-05-28 15:40 | XMS_ITS | Encounter Summary ---
Author Organization [facility] Address [address] [place] [address] Care Team Providers Care Front Office Manager Name Role Phone Margarito Curry MD Primary Care Provider Encounter Details Date Type Department Care Team (Late st Contact Info) Description 11/19/2022 Lab Requisition [facility] Pathology & Laboratory Medicine - [facility] [address] [place] [address] Zeny Clemente MD [address] [place] [phone] Encounter for other general examination Social [...] 16, PCR Negative Negative 12/05/2022 15:11 EDT [facility] HPV18/45 RNA (HPV18/45) Negative Negative 12/05/2022 15:11 EDT [facility] Papanicolaou smear specimen (specimen) CERVIX UTERI STRUCTURE / Unknown 11/19/2022 13:10 EDT 12/02/2022 10:05 EDT Zeny Clemente MD MICROBIOLOGY - GENER AL ORDERABLES Performing Organization Address City/[facility] Co de Phone Number [facility] [address] [place] [address] * (ABNORMAL) HUMAN PAPILLOMAVIRUS (HPV) DETECTION-HIGH RISK TYPES (11/19/2022 13:10 EDT) HPV other High Risk types, PCR Positive( A) Negative 12/05/2022 23:41 EDT [facility] Comment:E6 OR E7 mRNA from o ne or more types of HPV types 16,18,31,33,35,39,45,51,52,56,58,59,66, and 68 is detected by household coordinator mediated amplification. High and intermediate risk HPV types are associated with most squamous intraepithelial lesions and cervical cancers. Papanicolaou smear specimen (specimen) CERVIX UTERI STRUCTURE / Unknown 11/19/2022 13:10 EDT 12/02/2022 10:05 EDT Zeny Clemente MD MICROBIOLOGY - GENER AL ORDERABLES Performing Organization Address City/[facility] Co de Phone Number [facility] [address] [place] [address] * PAP TEST (11/19/2022 13:10 EDT) Specimens A. Cervix and/or Endocervix , ThinPrep Imaging System with Manual Evaluation 12/05/2022 23:41 [facility] Specimen Adequacy Satisfactory for Evaluation - transformation zone component present 12/05/2022 23:41 [facility] General Categorization Epithelial Cell Abnormality 12/05/2022 23:41 [facility] Descriptive Diagnosis Squamous Cell Abnormality - Low grade squamous intraepithelial lesion (LSIL). 12/05/2022 23:41 [facility] Educational Comments [facility] recommends following the ASCCP's management guidelines which may be found at www.asccp.org 12/05/2022 23:41 [facility] Attestation By the signature below, the attending physician certifies that they have personally conducted a gross and/or microscopic examination of the described specimens and rendered or confirmed the above diagnosis. 12/05/2022 23:41 [facility] at 2341 Clinical History See below 12/06/19 23:41 [facility] HPV The result for the Human Papillomavirus (HPV) Detection-High Risk Types is Positive . E6 OR E7 mRNA from one or more types of HPV types 16,18,31,33,35,39 ,45,51,52,56,58,5 9,66, and 68 is detected by household coordinator mediated amplification. High and intermediate risk HPV types are associated with most squamous intraepithelial lesions and cervical cancers. Testing was performed on specimen [id number] and was resulted on 12/03/2022 1540 EDT by LENA, LAB INSTRUMENT RESULTS IN 12/05/2022 23:41 [facility] Genotyping 16 & 18/45 The results for the HPV Genotypes 16 and 18/45 are Negative for the HPV16 RNA and Negative for the HPV18/45 RNA (HPV18/45). Testing was performed on specimen [id number] and was resulted on 12/05/2022 1511 EDT by LENA, LAB INSTRUMENT RESULTS IN 12/05/2022 23:41 [facility] Performing Lab [facility] 12/05/2022 23:41 EDT [facility] Scanned Images 12/05/2022 23:41 EDT [facility] Papanicolaou smear specimen (specimen) CERVIX UTERI STRUCTURE / Unknown 11/19/2022 13:10 EDT 11/22/2022 8:18 EDT Zeny Clemente MD PATHOLOGY ORDERABLES Performing Organization Address City[facility] Co de Phone Number [facility] [address] [place] [address] * CHLAMYDIA/N. GONORRHOEAE AMPLIFIED RNA, THINPREP (11/19/2022 13:10 EDT) Neisseria gonorrhoeae Result Negative Negative 11/21/2022 14:36 EDT [facility] Chlamydia trachomatis Result Negative Negative 11/21/2022 14:36 EDT [facility] Papanicolaou smear specimen (specimen) CERVIX UTERI STRUCTURE / Unknown 11/19/2022 13:10 EDT 11/21/2022 8:34 EDT Zeny Clemente MD MICROBIOLOGY - GENER AL ORDERABLES Performing Organization Address [facility] Co de Phone Number [facility] [address] [place] [address] documented in this encounter Visit Diagnoses Diagnosis Encounter for other general examination documented in this encounter Care Teams Front Office Manager Relationship Specialty Start Date End Date Margarito Curry MD [place] [place] [address] PCP - General 09/18/21 documented as of this encounter
--- OUTSIDE RECORDS SUMMARY | 2024-05-28 15:40 | XMS_ITS | Encounter Summary ---
Author Organization [facility] Address [address] [place] [address] Care Team Providers Care Radio Host Name Role Phone Margarito Curry MD Primary Care Provider [phone] Encounter Details Date Type Department Care Team (Late st Contact Info) Description 05/01/2023 Lab Requisition [facility] Pathology & Laboratory Medicine - [facility] [address] [place], [place] [id number] Outr Resulting Lab, Provider Social History Tobacco [...] gonorrhoeae Result Negative Negative 05/02/2023 13:23 EDT [facility] Chlamydia trachomatis Result Negative Negative 05/02/2023 13:23 EDT [facility] Swab VAGINAL STRUCTURE / Unknown 04/30/2023 16:15 EDT 05/01/2023 18:08 EDT Provider Outr Resulting Lab MICROBIOLOGY - GENERAL ORDERABLES [facility] [address] [place] [address] documented in this encounter Visit Diagnoses Not on filedocumented in this encounter Care Teams Radio Host Relationship Specialty Start Date End Date Margarito Curry MD [address] [place] [address] PCP - General 09/18/21 documented as of this encounter
--- OUTSIDE RECORDS SUMMARY | 2024-05-28 15:40 | XMS_ITS | Encounter Summary ---
Author Organization [facility] Address [address] [place] [address] Care Team Providers Care Beet Topper Name Role Phone Margarito Curry MD Primary Care Provider [phone] Encounter Details Date Type Department Care Team (Late st Contact Info) Description 12/01/2023 Lab Requisition [facility] Pathology & Laboratory Medicine - [facility] [address], [place] [phone] Outr Resulting Lab, Provider Social History Tobacco [...] gonorrhoeae Result Negative Negative 12/02/2023 13:35 EDT [facility] Chlamydia trachomatis Result Negative Negative 12/02/2023 13:35 EDT [facility] Pap Test CERVIX UTERI STRUCTURE / Unknown 12/01/2023 10:25 EDT 12/02/2023 9:32 EDT Provider Outr Resulting Lab MICROBIOLOGY - GENERAL ORDERABLES [facility] [address] [place] [address] documented in this encounter Visit Diagnoses Not on filedocumented in this encounter Care Teams Beet Topper Relationship Specialty Start Date End Date Margarito Curry MD [facility] [place] [place] [address] PCP - General 09/18/21 documented as of this encounter
--- OUTSIDE RECORDS SUMMARY | 2024-05-28 15:40 | XMS_ITS | Referral Summary ---
Author Organization [facility] Address [address] [place] [address] Care Team Providers Care Internet Media Planner Name Role Phone Margarito Curry MD Primary Care Provider [phone] Allergies Active Allergy Reactions Criticality Noted Date [...] C Antibody Negative Negative 11/03/2023 10:39 EDT [facility] Blood VENOUS BLOOD / Unknown 10/31/2023 16:55 EDT 11/01/2023 21:34 EDT Provider Outr Resulting Lab CHEMISTRY & BLOOD GAS ORDERABLES [facility] [address] [place] [address] from Last 3 Months or Most Recently Relevant to Health Maintenance Care Teams Internet Media Planner Relationship Specialty Start Date End Date Margarito Curry MD [facility] [address] [place], [place] [id number] PCP - General 09/18/21
--- OUTSIDE RECORDS SUMMARY | 2024-05-28 15:40 | XMS_ITS | Encounter Summary ---
Author Organization [facility] Address [address] [place] [address] Care Team Providers Care Heavy Equipment Mechanic Name Role Phone Margarito Curry MD Primary Care Provider [phone] Encounter Details Date Type Department Care Team (Late st Contact Info) Description 01/21/2023 Lab Requisition [facility] Pathology & Laboratory Medicine - [facility] [address] [place] [address] Zeny Clemente MD [address] [place] [phone] Encounter for other general examination Social [...] explore management options, if applicable. 01/23/2023 16:59 [facility] Final Diagnosis A. CERVIX, 6-7 O'CLOCK, BIOPSY: - Fragments of benign endocervix and benign squamous epithelium. B. ENDOCERVIX, CURETTAGE: - Fragments of benign endocervix. 01/23/2023 16:59 [facility] Diagnosis Comment The previous Pap test ([id number]) has been reviewed and the presence of atypical cells is confirmed. Similar abnormal cells to those seen on the Pap test are not identified in the current case. Deeper sections have been examined. 01/23/2023 16:59 [facility] Attestation By the signature below, the attending physician certifies that they have 1) personally conducted a gross and/or microscopic examination of the described specimen(s), and/or personally interpreted the results of laboratory testing of the described specimen(s), and 2) personally rendered or confirmed the above diagnosis. 01/23/2023 16:59 [facility] at 1659 Clinical History LSIL Pap/HPV + 01/23/2023 16:59 [facility] Gross Description A. Received [...] B1. Pao Pandya 01/21/2023 14:13 01/23/2023 16:59 [facility] Performing Lab [facility] 01/23/2023 16:59 [facility] Scanned Images 01/23/2023 16:59 EDT [facility] Tissue ENTIRE ENDOCERVIX / Unknown 01/20/2023 16:08 EDT 01/21/2023 8:07 EDT Tissue specimen (specimen) ENDOCERVICAL STRUCTURE / Unknown 01/20/2023 16:08 EDT 01/21/2023 8:09 EDT Zeny Clemente MD PATHOLOGY ORDERABLES [facility] [address] [place] [address] documented in this encounter Visit Diagnoses Diagnosis Encounter for other general examination documented in this encounter Care Teams Heavy Equipment Mechanic Relationship Specialty Start Date End Date Margarito Curry MD [address] [place] [address] PCP - General 09/18/21 documented as of this encounter
--- OUTSIDE RECORDS SUMMARY | 2024-05-28 15:40 | XMS_ITS | Encounter Summary ---
Author Organization [facility] Address [address] [place] [address] Care Team Providers Care Conservation Biology Professor Name Role Phone Margarito Curry MD Primary Care Provider [phone] Encounter Details Date Type Department Care Team (Late st Contact Info) Description 12/01/2023 Lab Requisition [facility] Pathology & Laboratory Medicine - [facility] [address] [place], [place] [phone] Outr Resulting Lab, Provider Social History Tobacco [...] Syphilis Serology Negative Negative 12/02/2023 10:[address] [facility] Blood VENOUS BLOOD / Unknown 12/01/2023 10:39 EDT 12/01/2023 17:15 EDT Provider Outr Resulting Lab IMMUNOLOGY A ND SEROLOGY ORDERABLES [facility] [address] [place] [address] documented in this encounter Visit Diagnoses Not on filedocumented in this encounter Care Teams Conservation Biology Professor Relationship Specialty Start Date End Date Margarito Curry MD [facility] [address] [place], [place] [id number] PCP - General 09/18/21 documented as of this encounter
--- OUTSIDE RECORDS SUMMARY | 2024-05-28 15:40 | XMS_ITS | Encounter Summary ---
Author Organization [facility] Address [address] [place] [address] Care Team Providers Care Street Car Mechanic Name Role Phone Margarito Curry MD Primary Care Provider [phone] Encounter Details Date Type Department Care Team (Late st Contact Info) Description 12/31/[address] [facility] Pathology & Laboratory Medicine - [place] [address] [place] [address] Zeny Clemente MD [address] [place] [phone] Encounter for other general examination Social [...] if applicable. 01/02/2024 11:12 EDT [facility] Final Diagnosis A. CERVIX, 7 O' CLOCK, CYTOBRUSH: - Superficial fragments of benign squamous mucosa and endocervical glands. 01/02/2024 11:12 EDT [facility] Diagnosis Comment The specimen is markedly fragmented and poorly preserved, limiting evaluation. No definitive dysplasia is identified. Deeper sections have been examined. 01/02/2024 11:12 T [facility] Attestation There was significant resident/fellow involvement in the diagnostic evaluation of this case. By the signature below, the attending physician certifies that they have personally conducted a gross and/or microscopic examination of the described specimens and rendered or confirmed the above diagnosis. 01/02/2024 11:12 [facility] at 1112 Clinical History LSIL 01/02/2024 11:12 [facility] Gross Description A. Received in formalin on a Histologic SFT-1000 device labelled with proper patient identification (initials C, E) and 7 o'clock cervix is an aggregate of transparent su mucus and admixed su wispy tissue fragments (0.6 x 0.5 x 0.1 cm). Entirely submitted in A1. Pao Vallecillo 12/31/2023 9:10 01/02/2024 11:12 T [facility] Resident/Vikas w: Kary Javier MD 01/02/2024 11:12 T [facility] Performing Lab [facility] 01/02/2024 11:12 [facility] Scanned Images 01/02/2024 11:12 [facility] Tissue CERVIX UTERI STRUCTURE / Unknown 12/30/2023 15:20 EDT 12/31/2023 8:16 EDT Zeny Clemente MD PATHOLOGY ORDERABLES [facility] [address] [place] [address] documented in this encounter Visit Diagnoses Diagnosis Encounter for other general examination documented in this encounter Care Teams Street Car Mechanic Relationship Specialty Start Date End Date Margarito Curry MD [address] [place] [address] PCP - General 09/18/21 documented as of this encounter
--- OUTSIDE RECORDS SUMMARY | 2024-05-28 15:40 | XMS_ITS | Encounter Summary ---
Author Organization [facility] Address [address] [place] [address] Care Team Providers Care Rubber Molder Name Role Phone Margarito Curry MD Primary Care Provider [phone] Encounter Details Date Type Department Care Team (Late st Contact Info) Description 02/02/2024 Lab Requisition [facility] Pathology & Laboratory Medicine - [facility] [address] [place], [place] [phone] Outr Resulting Lab, Provider Social History Tobacco [...] 2.8 - 5.3 pg/mL 02/02/2024 22:41 EDT [facility] Blood VENOUS BLOOD / Unknown 02/02/2024 10:30 EDT 02/02/2024 22:07 EDT Provider Outr Resulting Lab CHEMISTRY & BLOOD GAS ORDERABLES Performing Organization Address City/[facility]/ZIP Co de Phone Number [facility] [address] [place], [place] [address] * T3, TOTAL (02/02/2024 10:30 EDT) T3, Total 150 97 - 169 ng/dL 02/02/2024 22:56 EDT [facility] Blood VENOUS BLOOD / Unknown 02/02/2024 10:30 EDT 02/02/2024 22:07 EDT Provider Outr Resulting Lab CHEMISTRY & BLOOD GAS ORDERABLES Performing Organization Address [facility] de Phone Number [facility] [address] [place] [address] documented in this encounter Visit Diagnoses Not on filedocumented in this encounter Care Teams Rubber Molder Relationship Specialty Start Date End Date Margarito Curry MD [facility] [place] [address] PCP - General 09/18/21 documented as of this encounter
--- OUTSIDE RECORDS SUMMARY | 2024-05-28 15:40 | XMS_ITS | Encounter Summary ---
Author Organization [facility] Address [address] [place] [address] Care Team Providers Care Hotel Valet Attendant Name Role Phone Margarito Curry MD Primary Care Provider [phone] Encounter Details Date Type Department Care Team (Late st Contact Info) Description 11/01/2023 Lab Requisition [facility] Pathology & Laboratory Medicine - [facility] [address] [place], [place] [id number] Outr Resulting Lab, Provider Social History Tobacco [...] gonorrhoeae Result Negative Negative 11/03/2023 12:58 EDT [facility] Chlamydia trachomatis Result Negative Negative 11/03/2023 12:58 EDT [facility] Swab ENDOCERVICAL STRUCTURE / Unknown 10/31/2023 16:55 EDT 11/02/2023 16:06 EDT Provider Outr Resulting Lab MICROBIOLOGY - GENERAL ORDERABLES [facility] [address] [place], [place] [address] documented in this encounter Visit Diagnoses Not on filedocumented in this encounter Care Teams Hotel Valet Attendant Relationship Specialty Start Date End Date Margarito [place] [place] [address] PCP - General 09/18/21 documented as of this encounter
--- OUTSIDE RECORDS SUMMARY | 2024-05-28 15:40 | XMS_ITS | Encounter Summary ---
Author Organization [facility] Address [address] [place] [address] Care Team Providers Care Fact Checker Name Role Phone Margarito Curry MD Primary Care Provider [phone] Encounter Details Date Type Department Care Team (Late st Contact Info) Description 11/01/2023 Lab Requisition [facility] Pathology & Laboratory Medicine - [facility] [address] [place], [place] [phone] Outr Resulting Lab, Provider Social History Tobacco [...] Syphilis Serology Negative Negative 11/03/2023 11:17 EDT [facility] Blood VENOUS BLOOD / Unknown 10/31/2023 16:55 EDT 11/01/2023 21:34 EDT Provider Outr Resulting Lab IMMUNOLOGY A ND SEROLOGY ORDERABLES Performing Organization Address City/[facility]/ZIP Co de Phone Number [facility] [address] [place] [address] * HEPATITIS C AB W REFLEX TO HCV RNA BY PCR (10/31/2023 16:55 EDT) Hep C Antibody Negative Negative 11/03/2023 10:39 EDT [facility] Blood VENOUS BLOOD / Unknown 10/31/2023 16:55 EDT 11/01/2023 21:34 EDT Provider Outr Resulting Lab CHEMISTRY & BLOOD GAS ORDERABLES Performing Organization Address City/[facility] Co de Phone Number [facility] [address] [place], [place] [address] documented in this encounter Visit Diagnoses Not on filedocumented in this encounter Care Teams Fact Checker Relationship Specialty Start Date End Date Margarito Curry MD [address] [place] [address] PCP - General 09/18/21 documented as of this encounter
--- OUTSIDE RECORDS SUMMARY | 2024-05-28 15:40 | XMS_ITS | Clinical Summary ---
Author Organization [facility] Address [address] [place] [address] Care Team Providers Care Stenographer Print Shop Name Role Phone Margarito Curry MD Primary Care Provider [phone] Allergies Active Allergy Reactions Criticality Noted Date [...] - 19+ 3-dose series) 2011 COVID-19 Vaccine ( season) 2024 Hepatitis C Screen Completed 10/31/2023, 11/02/2021 Procedures Procedure Name Priority Date/Time Associated Diagnosis Comments HEPATITIS C AB W REFLEX TO HCV RNA BY PCR Routine 10/31/2023 16:55 EDT from Last 3 Months or Most Recently Relevant to Health Maintenance Results * HEPATITIS C AB W REFLEX TO HCV RNA BY PCR (10/31/2023 16:55 EDT) Hep C Antibody Negative Negative 11/03/2023 10:39 EDT [facility] Blood VENOUS BLOOD / Unknown 10/31/2023 16:55 EDT 11/01/2023 21:34 EDT Provider Outr Resulting Lab CHEMISTRY & BLOOD GAS ORDERABLES [facility] [address] [place] [address] from Last 3 Months or Most Recently Relevant to Health Maintenance Care Teams Stenographer Print Shop Relationship Specialty Start Date End Date Margarito Curry MD [facility] [address] [facility], [place] [id number] PCP - General 09/18/21
--- OUTSIDE RECORDS SUMMARY | 2024-05-28 15:40 | XMS_ITS | Encounter Summary ---
Author Organization [facility] Address [address] [place] [address] Care Team Providers Care International Marketing Manager Name Role Phone Margarito Curry MD Primary Care Provider [phone] Encounter Details Date Type Department Care Team (Late st Contact Info) Description 12/02/2023 Lab Requisition [facility] Pathology & Laboratory Medicine - [facility] [address] [place] [address] Zeny Clemente MD [address] [place] [phone] Encounter for screening for infections with [...] Imaging System with Manual Evaluation 12/08/2023 11:46 [facility] Specimen Adequacy Satisfactory for Evaluation - transformation zone component present 12/08/2023 11:46 [facility] General Categorization Epithelial Cell Abnormality 12/08/2023 11:46 [facility] Descriptive Diagnosis Squamous Cell Abnormality - Low grade squamous intraepithelial lesion (LSIL). 12/08/2023 11:46 [facility] Educational Comments [facility] recommends following the ASCCP's management guidelines which may be found at www.asccp.org 12/08/2023 11:46 [facility] Attestation By the signature below, the attending physician certifies that they have personally conducted a gross and/or microscopic examination of the described specimens and rendered or confirmed the above diagnosis. 12/08/2023 11:46 [facility] at 1146 Clinical History See below 12/08/19 11:46 [facility] Performing Lab [facility] 12/08/2023 11:46 [facility] Scanned Images 12/08/2023 11:46 [facility] Pap Test CERVIX UTERI STRUCTURE / Unknown 12/01/2023 10:25 EDT 12/02/2023 13:35 EDT Zeny Clemente MD PATHOLOGY ORDERABLES [facility] [address] [place], [place] [phone] documented in this encounter Visit Diagnoses Diagnosis Encounter for screening for infections with a predominantly sexual mode of transmission documented in this encounter Care Teams International Marketing Manager Relationship Specialty Start Date End Date Margarito Curry MD [address] [place] [address] PCP - General 09/18/21 documented as of this encounter
--- OUTSIDE RECORDS SUMMARY | 2024-05-28 15:40 | XMS_ITS | Encounter Summary ---
Author Organization [facility] Address [address] [place] [address] Care Team Providers Care Building Maintenance Worker Name Role Phone Margarito Curry MD Primary Care Provider Encounter Details Date Type Department Care Team (Late st Contact Info) Description 12/01/2023 Lab Requisition [facility] Pathology & Laboratory Medicine - [facility] [address] [place], [place] [phone] Outr Resulting Lab, Provider Social History Tobacco [...] Surface Ag Negative Negative 12/01/19 20:15 EDT [facility] Hep B Surface Ab, Quantitative <3.1 See Note mIU/mL 12/01/2023 20:15 EDT [facility] Comment: Reference Range for Hep B Surface Ab, Quant: Positive: >= 10.0 mIU/mL Negative: ??< 10.0 mIU/mL Patient is presumed to not be immune to infection with Hepatitis B Virus. Hep B Surface Ab, Qualitative Negative See Note 12/01/2023 20:15 EDT [facility] Comment: Reference Range for Hep B Surface Ab, Qual: Unvaccinated: ??Negative Vaccinated: ??Positive Hepatitis B Core Ab, Total Negative Negative 12/01/2023 20:15 EDT [facility] Hep C Antibody Negative Negative 12/01/2023 20:15 EDT [facility] Blood VENOUS BLOOD / Unknown 12/01/2023 10:39 EDT 12/01/2023 17:16 EDT Provider Outr Resulting Lab CHEMISTRY & BLOOD GAS ORDERABLES Performing Organization Address City/State/[facility] Co de Phone Number [facility] [address] [place], [place] [address] documented in this encounter Visit Diagnoses Not on filedocumented in this encounter Care Teams Building Maintenance Worker Relationship Specialty Start Date End Date Margarito Curry MD [address] [place] [address] PCP - General 09/18/21 documented as of this encounter
--- OUTSIDE RECORDS SUMMARY | 2024-05-28 15:40 | XMS_ITS | Encounter Summary ---
Author Organization [facility] Address [address] [place] [address] Care Team Providers Care Load Blocker Name Role Phone Margarito Curry MD Primary Care Provider [phone] Encounter Details Date Type Department Care Team (Late st Contact Info) Description 12/01/2023 Lab Requisition [facility] Pathology & Laboratory Medicine - [facility] [address] [place], [place] [phone] Outr Resulting Lab, Provider Social History Tobacco [...] Negative Negative 12/01/2023 20:11 EDT [facility] Comment:If acute HIV-1 infec tion is suspected in a high risk patient, submit plasma specimen for HIV-1 RNA quantitation test. Blood VENOUS BLOOD / Unknown 12/01/2023 10:39 EDT 12/01/2023 17:16 EDT Narrative [facility] - 12/01/2023 20:11 EDT Fourth Generation assay performed on the Siemens ViRTUAL INTERACTiVEaur XPT. Provider Outr Resulting Lab IMMUNOLOGY A ND SEROLOGY ORDERABLES [facility] [address] [place], [place] [phone] documented in this encounter Visit Diagnoses Not on filedocumented in this encounter Care Teams Load Blocker Relationship Specialty Start Date End Date Margarito Curry MD [address] [place] [address] PCP - General 09/18/21 documented as of this encounter
--- OUTSIDE RECORDS SUMMARY | 2024-05-28 15:41 | XMS_ITS | Encounter Summary ---
Author Organization [facility] Address [address] [place] [address] Care Team Providers Care Second Grade Teacher Name Role Phone Unavailable Primary Care Provider Unavailabl e Encounter Details Date Type Department Care Team (Late st Contact Info) Description 07/25/2003 11:52 EST - 07/25/2003 11:59 EST Hospital Encounter [facility] - Other [address] [place] [address] Maricel Lerner MD [address] [place] [phone] Discharge Disposition: Auto Discharge Social History [...]
--- OUTSIDE RECORDS SUMMARY | 2024-05-28 15:41 | XMS_ITS | Encounter Summary ---
Author Organization [facility] Address [address] [place] [address] Care Team Providers Care It Technical Support Specialist Name Role Phone Unavailable Primary Care Provider Unavailabl e Encounter Details Date Type Department Care Team (Latest Contact Info) Description 09/26/2008 16:04 EST Hospital Encounter [facility] - Other [address] [place] [address] Cathy Diaz MD [address] [place] [phone] Discharge Disposition: Home or Self Care Social [...]
--- OUTSIDE RECORDS SUMMARY | 2024-05-28 15:41 | XMS_ITS | Encounter Summary ---
Author Organization [facility] Address [address] [place] [address] Care Team Providers Care Extender Name Role Phone Cathy Diaz MD Primary Care Provider Encounter Details Date Type Department Care Team (Latest Contact Info) Description 03/14/2016 7:37 EDT - 03/14/2016 23:59 EDT Hospital Encounter [address] [address] Unknown, Provider, Discharge Disposition: Home or Self [...] Code Departure Means Destination Home or Self [facility] documented in this encounter Plan of Treatment Not on file documented as of this encounter Visit Diagnoses Not on filedocumented in this encounter Care Teams Extender Relationship Specialty Start Date End Date Cathy Diaz MD [address] [place] [phone] PCP - General 01/05/09 09/17/21 documented as of this encounter
--- OUTSIDE RECORDS SUMMARY | 2024-05-28 15:41 | XMS_ITS | Encounter Summary ---
Author Organization [facility] Address [address] [place] [address] Care Team Providers Care Investigator Welfare Name Role Phone Cathy Diaz MD Primary Care Provider [phone] Margarito Curry MD Primary Care Provider [phone] Encounter Details Date Type Department Care Team (Late st Contact Info) Description 06/21/2021 Lab Requisition [facility] Pathology & Laboratory Medicine - [address] [address] Outr Resulting Lab, Provider Social History Tobacco [...] Outr Resulting Lab MICROBIOLOGY - GENERAL ORDERABLES [facility] [address] [place] [address] * COVID-19 TESTING (06/20/2021 10:45 EDT) COVID-19 rt-PCR Result Negative Negative 06/22/2021 10:37 EDT [facility] Comment: This test has [...] performed using the beto SARS-CoV-2 assay ([employer] on the Beto 6800 System Performing Lab Beto 6800 [facility] 06/22/2021 10:37 EDT [facility] Swab 06/20/2021 10:4 5 EDT 06/21/2021 16:48 EDT Provider Outr Resulting Lab MICROBIOLOGY - GENERAL ORDERABLES [facility] [address] [place] [address] documented in this encounter Visit Diagnoses Not on filedocumented in this encounter Additional Health Concerns Infection Onset Date Last Indicated Resolved Time Influenza 07/22/2022 07/22/2022 08/01/2022 22:1 5 EST documented as of this encounter Care Teams Investigator Welfare Relationship Specialty Start Date End Date Cathy Diaz MD [address] [place] [phone] PCP - General 01/05/09 09/17/21 Margarito Curry MD [address] [place] [address] PCP - General 09/18/21 documented as of this encounter
--- OUTSIDE RECORDS SUMMARY | 2024-05-28 15:41 | XMS_ITS | Encounter Summary ---
Author Organization [facility] Address [address] [place] [address] Care Team Providers Care Manager Of Radiology Name Role Phone Margarito Curry MD Primary Care Provider [phone] Encounter Details Date Type Department Care Team (Late st Contact Info) Description 11/03/2021 Lab Requisition [facility] Pathology & Laboratory Medicine - [facility] [address] [place], [place] [phone] Outr Resulting Lab, Provider Social History Tobacco [...] 4th Generation Negative Negative 11/05/2021 9:40 EDT [facility] Comment:If acute HIV-1 infec tion is suspected in a high risk patient, submit plasma specimen for HIV-1 RNA quantitation test. Blood VENOUS BLOOD / Unknown 11/02/2021 12:50 EDT 11/03/2021 21:52 EDT Narrative [facility] - 11/05/2021 9:40 EDT Fourth Generation assay performed on the Siemens Centaur XPT. Provider Outr Resulting Lab IMMUNOLOGY A ND SEROLOGY ORDERABLES [facility] [address] [place] [address] documented in this encounter Visit Diagnoses Not on filedocumented in this encounter Additional Health Concerns Infection Onset Date Last Indicated Resolved Time Influenza 07/22/2022 07/22/2022 08/01/2022 22:1 5 EST documented as of this encounter Care Teams Manager Of Radiology Relationship Specialty Start Date End Date Margarito Curry MD [facility] [place] [address] PCP - General 09/18/21 documented as of this encounter
--- OUTSIDE RECORDS SUMMARY | 2024-05-28 15:41 | XMS_ITS | Encounter Summary ---
Author Organization [facility] Address [address] [place] [address] Care Team Providers Care Power Plant Operator Apprentice Name Role Phone Margarito Curry MD Primary Care Provider [phone] Encounter Details Date Type Department Care Team (Late st Contact Info) Description 11/02/2021 Lab Requisition [facility] Pathology & Laboratory Medicine - [facility] [address] [place] [address] Margarito Curry MD [address] [place] [phone] Encounter for other general examination Social History [...] Imaging System with Manual Evaluation 11/12/2021 11:23 [facility] Specimen Adequacy Satisfactory for Evaluation - transformation zone component present 11/12/2021 11:23 T [facility] General Categorization Epithelial Cell Abnormality 11/12/2021 11:23 [facility] Descriptive Diagnosis Squamous Cell Abnormality - Low grade squamous intraepithelial lesion (LSIL). 11/12/2021 11:23 [facility] Educational Comments [facility] recommends following ASCCP's 2012 Updated Consensus Guidelines for the Management of Abnormal Cervical Cancer Screening Tests and Cancer Precursors (JLGTD, 2013; 17(5):S1-S27). Consensus guidelines are available online at www.asccp.org. 11/12/2021 11:23 [facility] Attestation By the signature below, the attending physician certifies that they have personally conducted a gross and/or microscopic examination of the described specimens and rendered or confirmed the above diagnosis. 11/12/2021 11:23 [facility] at 1123 Clinical History See below 11/13/19 11:23 [facility] Performing Lab [facility] 11/12/2021 11:23 [facility] Scanned Images 11/12/2021 11:23 [facility] Papanicolaou smear specimen (specimen) CERVIX UTERI STRUCTURE / Unknown 11/02/2021 12:30 EDT 11/05/2021 14:36 EDT Margarito Curry MD PATHOLOGY ORDERABLES [facility] [address] [place] [phone] * CHLAMYDIA/N. GONORRHOEAE AMPLIFIED RNA, THINPREP (11/02/2021 12:30 EDT) Neisseria gonorrhoeae Result Negative Negative 11/05/2021 15:27 EDT [facility] Chlamydia trachomatis Result Negative Negative 11/05/2021 15:27 EDT [facility] Papanicolaou smear specimen (specimen) CERVIX UTERI STRUCTURE / Unknown 11/02/2021 12:30 EDT 11/05/2021 8:36 EDT Margarito Curry MD MICROBIOLOGY - GENER AL ORDERABLES [facility] [address] [place] [address] documented in this encounter Visit Diagnoses Diagnosis Encounter for other general examination documented in this encounter Additional Health Concerns Infection Onset Date Last Indicated Resolved Time Influenza 07/22/2022 07/22/2022 08/01/2022 22:1 5 EST documented as of this encounter Care Teams Power Plant Operator Apprentice Relationship Specialty Start Date End Date Margarito Curry MD [address] [place] [address] PCP - General 09/18/21 documented as of this encounter
--- OUTSIDE RECORDS SUMMARY | 2024-05-28 15:41 | XMS_ITS | Encounter Summary ---
Author Organization [facility] Address [address] [place] [address] Care Team Providers Care Stroke Belt Sander Operator Name Role Phone Cathy Diaz MD Primary Care Provider [phone] Margarito Curry MD Primary Care Provider Encounter Details Date Type Department Care Team (Late st Contact Info) Description 05/17/2021 Lab Requisition [facility] Pathology & Laboratory Medicine - [address] [phone] Outr Resulting Lab, Provider Social History Tobacco [...] Syphilis Serology Negative Negative 05/18/2021 10:14 EDT [facility] Blood VENOUS BLOOD / Unknown 05/16/2021 11:30 EDT 05/17/2021 16:14 EDT Provider Outr Resulting Lab IMMUNOLOGY A ND SEROLOGY ORDERABLES [facility] [address] [place] [address] documented in this encounter Visit Diagnoses Not on filedocumented in this encounter Additional Health Concerns Infection Onset Date Last Indicated Resolved Time Influenza 07/22/2022 07/22/2022 08/01/2022 22:1 5 EST documented as of this encounter Care Teams Stroke Belt Sander Operator Relationship Specialty Start Date End Date Cathy Diaz MD [address] [place] [phone] PCP - General 01/05/09 09/17/21 Margarito Curry MD [address] [place] [address] [place] [address] PCP - General 09/18/21 documented as of this encounter
--- OUTSIDE RECORDS SUMMARY | 2024-05-28 15:41 | XMS_ITS | Encounter Summary ---
Author Organization [facility] Address [address] [place] [address] Care Team Providers Care Knit Goods Washer Name Role Phone Cathy Waldrop MD Primary Care Provider [phone] Encounter Details Date Type Department Care Team (Late st Contact Info) Description 04/24/2007 Results Only [facility] [place] [facility] [address] [place] [address] Cathy Waldrop MD [address] [place] [phone] Social History Tobacco Use Types Packs/Day [...] Result No Neisseria gonorrhoeae DNA detected by mechanical process engineer mediated amplification. [facility] Report Status Final [id number] [facility] Specimen Description Cervix [facility] 04/24/2007 23:2 4 EDT 04/24/2007 23:24 EDT Cathy Waldrop MD MICROBIOLOGY - GENER AL ORDERABLES Performing Organization Address [facility] de Phone Number [facility] [address] [place] [address] * CHLAMYDIA TRACHOMATIS AMPLIFIED PROBE (04/24/2007 23:24 EDT) Specimen Description Cervix [facility] Result No Chlamydia trachomatis DNA detected by mechanical process engineer mediated amplification. [facility] Report Status Final [id number] [facility] 04/24/2007 23:2 4 EDT 04/24/2007 23:24 EDT Cathy Waldrop MD MICROBIOLOGY - GENER AL ORDERABLES Performing Organization Address [facility] de Phone Number [facility] [address] [place] [address] * CYTOPATHOLOGY (04/24/2007 0:00 EDT) Pathology Report: CYTOPATHOLOGY REPORT Reports generated via electronic interface contain original data; however they are lacking the format of the original report. Caution should be taken when reading/interpreti ng unformatted reports. Name: ? MALIA SCHAEFER ? Accession #: ? [id number] : ? 1990 (Age: 16) ??F ?Collect Date: ? 04/24/2007 Location: ? [facility] ? Receive Date: ? 04/27/2007 Provider: ?CATHY WALDROP MD Copy to: ? Specimen/Source: ?ThinPrep Pap Test, Cervix/Endocervix, processed on The Filter ThinPrep Imaging System, with manual evaluation Last [...] MD PATHOLOGY ORDERABLES Performing Organization Address City/State/[facility] Co de Phone Number [facility] [address] [place] [address] documented in this encounter Visit Diagnoses Not on filedocumented in this encounter Care Teams Knit Goods Washer Relationship Specialty Start Date End Date Cathy Waldrop MD [address] [place] [phone] PCP - General 01/05/09 09/17/21 documented as of this encounter
--- OUTSIDE RECORDS SUMMARY | 2024-05-28 15:41 | XMS_ITS | Encounter Summary ---
Author Organization [facility] Address [address] [place] [address] Care Team Providers Care Barker Peeler Name Role Phone Cathy Diaz MD Primary Care Provider [phone] Encounter Details Date Type Department Care Team (Late st Contact Info) Description 05/11/2018 Results Only [facility]- [facility] [phone] Leigh Ann Bauer[address] [address] Social History Tobacco Use Types [...] ? MALIA LEDESMA ? Accession #: ? [id number] ? : ? 1990 (Age: 27) ??F ?Collect Date: ? 05/11/2018 ? Location: ? [facility] ? Receive Date: ? 05/12/2018 ? Provider: LEIGH ANN BAUER CNM Copy to: BRITTNEY SCHNEIDER BARK SCALER ? Final Report SPECIMEN ADEQUACY ? Satisfactory for Evaluation - transformation zone component present GENERAL CATEGORIZATION ? Epithelial Cell Abnormality INTERPRETATION ? Squamous Cell Abnormality - Atypical squamous cells, undetermined significance (ASC-US). Fungal organisms present morphologically consistent with Judi species. EDUCATIONAL NOTES/RECOMMENDATI ONS ? [facility] recommends following ASCCP's 2012 Updated [...] 33,35,39,45,51,52, 56,58,59,66, and 68 is detected by night custodian mediated amplification. High and intermediate risk HPV [...] confirmed the above diagnosis. End of Report [facility] 05/11/2018 05/12/2018 Leigh Ann Bauer [facility] PATHOLOGY ORDERABLES [facility] [address] [place] [address] documented in this encounter Visit Diagnoses Not on filedocumented in this encounter Care Teams Barker Peeler Relationship Specialty Start Date End Date Cathy Diaz MD [address] [place] [phone] PCP - General 01/05/09 09/17/21 documented as of this encounter
--- OUTSIDE RECORDS SUMMARY | 2024-05-28 15:41 | XMS_ITS | Encounter Summary ---
Author Organization [facility] Address [address] [place] [address] Care Team Providers Care Chief Guard Name Role Phone Cathy Diaz MD Primary Care Provider [phone] Margarito Curry MD Primary Care Provider [phone] Encounter Details Date Type Department Care Team (Late st Contact Info) Description 05/17/2021 Lab Requisition [facility] Pathology & Laboratory Medicine - [address] [phone] Outr Resulting Lab, Provider Social History Tobacco [...] 4th Generation Negative Negative 05/18/2021 10:36 EDT [facility] Comment: If acute HIV-1 infection is suspected in a high risk ??patient, submit plasma specimen for HIV-1 RNA quantitation test. Fourth Generation assay performed on the Siemens Centaur. Blood VENOUS BLOOD / Unknown 05/16/2021 11:30 EDT 05/17/2021 16:13 EDT Provider Outr Resulting Lab IMMUNOLOGY A ND SEROLOGY ORDERABLES [facility] [address] [place] [address] documented in this encounter Visit Diagnoses Not on filedocumented in this encounter Additional Health Concerns Infection Onset Date Last Indicated Resolved Time Influenza 07/22/2022 07/22/2022 08/01/2022 22:1 5 EST documented as of this encounter Care Teams Chief Guard Relationship Specialty Start Date End Date Cathy Diaz MD [address] [place] [phone] PCP - General 01/05/09 09/17/21 Margarito Curry MD [address] [place] [address] [place] [address] PCP - General 09/18/21 documented as of this encounter
--- OUTSIDE RECORDS SUMMARY | 2024-05-28 15:41 | XMS_ITS | Encounter Summary ---
Author Organization [facility] Address [address] [place] [address] Care Team Providers Care Risk And Insurance Consultant Name Role Phone Unavailable Primary Care Provider Blanco shane Encounter Details Date Type Department Care Team (Latest Contact Info) Description 10/12/2002 15:25 EST Hospital Encounter [facility] - Other [address] [place] [address] Indra Davila MD Unknown, Provider, Discharge Disposition: [...] ? MALIA LEDESMA ? Accession #: ? [id number] ? : ? 1990 (Age: 12) ??F [...] rather than a distinctive, umbilicated papule. ??(Dr. Blood)/[facility] Microscopic Description: ? Sections consist of shave [...] invaginations. ??There is no appreciable inflammation. ??(Dr. Blood)/[facility] Document reviewed and electronically signed by: Joie [...] PATHOLOGY ORDERABLES Performing Organization Address City/State/[facility] Co de Phone Number [facility] [address] [place] [address] documented in this encounter Visit Diagnoses Not on filedocumented in this encounter
--- OUTSIDE RECORDS SUMMARY | 2024-05-28 15:41 | XMS_ITS | Encounter Summary ---
Author Organization [facility] Address [address] [place] [address] Care Team Providers Care Polymer Tester Name Role Phone Margarito Curry MD Primary Care Provider [phone] Reason for Visit * Reason Comments Anxiety Chest Pain Encounter Details Date Type Department Care Team (Late st Contact Info) Description 10/04/2021 0:18 EST - 10/04/2021 2:16 EST Emergency [facility] Emergency Department - [address] [id number] Cassi David PA-C [address] [facility], Level 1 [place] [address] Anxiety (Primary Dx) Discharge Disposition: [...] is overwhelming, please contact Crisis Services at [phone]. documented in this encounter Medications at Time [...] exam for emergent medical conditions at the [facility] on 10/04/2021 Chief Complaint Panic attack [...] most recently presented to the ED at [facility] on Friday as she had run out of her home lorazepam. The patient reports that she has a plan for admission to [facility]. She is adamant there is no SI or HI and is looking forward to going to [facility] for further management. History was provided by: [...] the patient is planned to go to [facility] on Friday. Theyare comfortable with the patient [...] has them frequently, and has been at [facility] for [facility]. Aggravating factor isdeath of mother. Received [...] EDT) 10/30/2021 16:1 9 EDT Scan 2 Remote Inpatient Coder PROCEDURE/MINOR NEDRA GICAL ORDERABLES * EKG 12-LEAD (10/04/2021 0:33 EST) 10/04/2021 0:33 EST Narrative [facility] EKG - 10/30/2021 16:14 EDT ?[facility] Emergency ? Test Date: ?2021-10-04 Pat Name: ? MALIA LEDESMA ? Department: ?? ED ? Room: ? GT40 Gender: ? Female ? Machine Heel Seat Laster: ?? : ?1990 ? Requested By: BERNICE Bernal Order Number: [id number] ? Reading MD: ?? JUDIT ALETA MD ? Measurements Intervals ?[place] ? Rate: ? 78 ? P: ?42 VA: ? 123 ?QRS: ?11 QRSD: ? 81 ? T: ?20 QT: ? 363 ? QTc: ?416 ? Interpretive Statements SINUS RHYTHM WITH SINUS ARRHYTHMIA No previous ECG available for comparison I reviewed the tracing and have either agreed or edited the findings in this report. Electronically Signed On 10-30-2021 16:14:32 EDT by JUDIT RIVER MD. Procedure Note Judit River MD - 10/30/[address] [facility] Emergency Test Date: 2021-10-04 Pat Name: MALIA LEDESMA Department: ED Room: GT40 Gender: Female Machine Heel Seat Laster: : 1990 Requested By: BERNICE Bernal Order Number: [id number] Reading MD: JUDIT MORTON Measurements Intervals [place] Rate: 78 P: 42 VA: 123 QRS: 11 QRSD: 81 T: 20 QT: 363 QTc: 416 Interpretive Statements SINUS RHYTHM WITH SINUS ARRHYTHMIA No previous ECG available for comparison I reviewed the tracing and have either agreed or edited the findings inthis report. Electronically Signed On 10-30-2021 16:14:32 EDT by LUCAS PORTER. Steve Dos Santos MD CARDIAC ECG ORDERABL ES [facility] EKG documented in this encounter Visit Diagnoses [...] 10/04/2021 documented in this encounter Care Teams Polymer Tester Relationship Specialty Start Date End Date Margarito Curry MD [address] [place] [address] PCP - General 09/18/21 documented as of this encounter
--- OUTSIDE RECORDS SUMMARY | 2024-05-28 15:41 | XMS_ITS | Encounter Summary ---
Author Organization [facility] Address [address] [place] [address] Care Team Providers Care Senior Accounting Manager Name Role Phone Cathy Diaz MD Primary Care Provider [phone] Encounter Details Date Type Department Care Team (Late st Contact Info) Description 03/14/2016 Results Only [facility] [phone] Tod Hough Social History Tobacco Use Types [...] ? MALIA LEDESMA ? Accession #: ? [id number] : ? 1990 (Age: 25) ??F ?Collect [...] (LSIL). EDUCATIONAL NOTES/RECOMMENDATI ONS ? [facility] recommends following ASCCP's 2012 Updated Consensus Guidelines for the Management of Abnormal Cervical Cancer Screening Tests and Cancer Precursors (JLGTD, 2013; 17(5):S1-S27). ??Consensus guidelines are available online at www.asccp.org. ? Document reviewed and electronically signed by: ? JOSE TAN MD ? Report Date: ??03/27/2016 15:59 End of Report [facility] 03/14/2016 03/19/2016 Tod Hough PATHOLOGY ORDERABLES [facility] [address] [place] [address] documented in this encounter Visit Diagnoses Not on filedocumented in this encounter Care Teams Senior Accounting Manager Relationship Specialty Start Date End Date Cathy Diaz MD [address] [place] [phone] PCP - General 01/05/09 09/17/21 documented as of this encounter
--- OUTSIDE RECORDS SUMMARY | 2024-05-28 15:41 | XMS_ITS | Encounter Summary ---
Author Organization [facility] Address [address] [place] [address] Care Team Providers Care Sandwich Peddler Name Role Phone Cathy Diaz MD Primary Care Provider Encounter Details Date Type Department Care Team (Latest Contact Info) Description 05/11/2018 13:51 EDT - 05/11/2018 23:59 EDT Hospital Encounter [address] [address] Unknown, Provider, Discharge Disposition: Home or Self [...] on filedocumented in this encounter Care Teams Sandwich Peddler Relationship Specialty Start Date End Date Cathy Diaz MD [address] [place] [phone] PCP - General 01/05/09 09/17/21 documented as of this encounter
--- OUTSIDE RECORDS SUMMARY | 2024-05-28 15:41 | XMS_ITS | Encounter Summary ---
Author Organization [facility] Address [address] [place] [address] Care Team Providers Care Tax Compliance Manager Name Role Phone Cathy Diaz MD Primary Care Provider [phone] Margarito Curry MD Primary Care Provider [phone] Encounter Details Date Type Department Care Team (Late st Contact Info) Description 04/28/2021 Lab Requisition [facility] Pathology & Laboratory Medicine - [address] [id number] Outr Resulting Lab, Provider Social History Tobacco [...] gonorrhoeae Result Negative Negative 04/30/2021 14:[address] [facility] Chlamydia trachomatis Result Negative Negative 04/30/2021 14:[address] [facility] Swab ENTIRE VAGINA / Unknown 04/27/2021 12:40 EDT 04/29/2021 16:19 EDT Provider Outr Resulting Lab MICROBIOLOGY - GENERAL ORDERABLES [facility] [address] [place] [address] documented in this encounter Visit Diagnoses Not on filedocumented in this encounter Additional Health Concerns Infection Onset Date Last Indicated Resolved Time Influenza 07/22/2022 07/22/2022 08/01/2022 22:1 5 EST documented as of this encounter Care Teams Tax Compliance Manager Relationship Specialty Start Date End Date Cathy Diaz MD [address] [place] [phone] PCP - General 01/05/09 09/17/21 Margarito Curry MD [address] [place] [address] [place] [address] PCP - General 09/18/21 documented as of this encounter
--- OUTSIDE RECORDS SUMMARY | 2024-05-28 15:41 | XMS_ITS | Encounter Summary ---
Author Organization [facility] Address [address] [place] [address] Care Team Providers Care Gas Appliance Installer Name Role Phone Unavailable Primary Care Provider Unavailabl e Encounter Details Date Type Department Care Team (Late st Contact Info) Description 06/16/2007 8:57 EDT [place] [facility] [address] [place] [address] Josie Santillan MD [address] [place] [address] Social History Tobacco Use Types [...]
--- OUTSIDE RECORDS SUMMARY | 2024-05-28 15:41 | XMS_ITS | Encounter Summary ---
Author Organization [facility] Address [address] [place] [address] Care Team Providers Care Document Review Specialist Name Role Phone Margarito Curry MD Primary Care Provider [phone] Encounter Details Date Type Department Care Team (Late st Contact Info) Description 09/30/2021 13:00 EST - 09/30/2021 14:17 EST Emergency [facility] Emergency Department - [address] [address] Dereje Allen PA-C [address] [place] [address], Level 1 [place] [phone] Alcohol withdrawal syndrome without complication (HCC-CMS) (HCC) [...] emergent medical conditions via Telemedicine by the [facility] on 09/30/2021 Today's visit was provided through telemedicine video conferencing: The location of the patient : [facility] The location of the provider:emergency department The [...] Zoom. The patient was located at the [facility] and the ED provider was located at the Emergency Department. The [facility] staff member was present for portions [...] 1303 EST Number to call per registration [phone] documented in this encounter Plan of Treatment [...] documented as of this encounter Care Teams Document Review Specialist Relationship Specialty Start Date End Date Margarito Curry MD [facility] [place] [address] PCP - General 09/18/21 documented as of this encounter
--- OUTSIDE RECORDS SUMMARY | 2024-05-28 15:41 | XMS_ITS | Encounter Summary ---
Author Organization [facility] Address [address] [place] [address] Care Team Providers Care Sustain Engineer Name Role Phone Margarito Curry MD Primary Care Provider [phone] Encounter Details Date Type Department Care Team (Late st Contact Info) Description 11/03/2021 Lab Requisition [facility] Pathology & Laboratory Medicine - [facility] [address] [place], [place] [id number] Outr Resulting Lab, Provider Social History Tobacco [...] Surface Ag Negative Negative 11/05/2021 10:07 EDT [facility] Blood VENOUS BLOOD / Unknown 11/02/2021 12:50 EDT 11/03/2021 21:52 EDT Provider Outr Resulting Lab CHEMISTRY & BLOOD GAS ORDERABLES Performing Organization Address City/[facility]/ZIP Co de Phone Number [facility] [address] [place] [address] * HEPATITIS C AB W REFLEX TO HCV RNA BY PCR (11/02/2021 12:50 EDT) Hep C Antibody Negative Negative 11/05/2021 11:09 EDT [facility] Blood VENOUS BLOOD / Unknown 11/02/2021 12:50 EDT 11/03/2021 21:52 EDT Provider Outr Resulting Lab CHEMISTRY & BLOOD GAS ORDERABLES Performing Organization Address City/[facility] Co de Phone Number [facility] [address] [place] [address] documented in this encounter Visit Diagnoses Not on filedocumented in this encounter Additional Health Concerns Infection Onset Date Last Indicated Resolved Time Influenza 07/22/2022 07/22/2022 08/01/2022 22:1 5 EST documented as of this encounter Care Teams Sustain Engineer Relationship Specialty Start Date End Date Margarito Curry MD [place] [place] [address] PCP - General 09/18/21 documented as of this encounter
--- OUTSIDE RECORDS SUMMARY | 2024-05-28 15:41 | XMS_ITS | Encounter Summary ---
Author Organization [facility] Address [address] [place] [address] Care Team Providers Care Sand System Operator Name Role Phone Cathy Diaz MD Primary Care Provider [phone] Encounter Details Date Type Department Care Team (Late st Contact Info) Description 12/30/2016 Results Only [facility] [phone] Zoila Rdz MD [address] [place] [phone] Social History Tobacco Use Types Packs/Day Years [...] ? MALIA LEDESMA ? Accession #: ? [id number] : ? 1990 (Age: 26) ??F ?Collect [...] Report Date: ??01/14/2017 16:49 End of Report [facility] 12/30/2016 01/02/2017 Zoila Rdz MD PATHOLOGY ORDERABLES [facility] [address] [place] [address] documented in this encounter Visit Diagnoses Not on filedocumented in this encounter Care Teams Sand System Operator Relationship Specialty Start Date End Date Cathy Diaz MD [address] [place] [phone] PCP - General 01/05/09 09/17/21 documented as of this encounter
--- OUTSIDE RECORDS SUMMARY | 2024-05-28 15:41 | XMS_ITS | Encounter Summary ---
Author Organization [facility] Address [address] [place] [address] Care Team Providers Care Milled Rubber Tender Name Role Phone Margarito Curry MD Primary Care Provider [phone] Encounter Details Date Type Department Care Team (Latest Contact Info) Description 10/08/2021 Lab Requisition [facility] Pathology & Laboratory Medicine - [facility] [address] [place] [address] Pedro Whitney [address] [place] [address] Encounter for screening for infections with a [...] gonorrhoeae Result Negative Negative 10/09/2021 15:07 EST [facility] Chlamydia trachomatis Result Negative Negative 10/09/2021 15:07 EST [facility] Urine URINE / Unknown 10/06/2021 1 3:00 EST 10/08/2021 22:09 EST Narrative [facility] - 10/09/2021 15:07 EST A first catch urine specimen is acceptable for detection of Gonorrhea and Chlamydia, but might detect up to 10% fewer infections when compared with vaginal and endocervical swab samples. Pedro Whitney MICROBIOLOGY - GENER AL ORDERABLES Performing Organization Address City/State/[facility] Co de Phone Number [facility] [address] [place] [address] documented in this encounter Visit Diagnoses Diagnosis Encounter for screening for infections with a predominantly sexual mode of transmission Encounter for screening for other infectious and parasitic diseases documented in this encounter Additional Health Concerns Infection Onset Date Last Indicated Resolved Time Influenza 07/22/2022 07/22/2022 08/01/2022 22:1 5 EST documented as of this encounter Care Teams Milled Rubber Tender Relationship Specialty Start Date End Date Margarito Curry MD [address] [place] [address] PCP - General 09/18/21 documented as of this encounter
--- OUTSIDE RECORDS SUMMARY | 2024-05-28 15:41 | XMS_ITS | Encounter Summary ---
Author Organization [facility] Address [address] [place] [address] Care Team Providers Care Metal Extrusion Supervisor Name Role Phone Margarito Curry MD Primary Care Provider [phone] Encounter Details Date Type Department Care Team (Late st Contact Info) Description 09/13/2022 14:45 EST Phlebotomy Only [facility] ED Center 2 Phlebotomy [address] [place], [place] [id number] Supervisor Cd Area, Acc Phlebotomy Other specified general medical examination [...] Quantiferon Interpretation Negative Negative 09/16/2022 13:28 EST [facility] Comment:No interferon-gamma response to M. tuberculosis antigens was detected. ??Infection with M. tuberculosis is unlikely. A single negative result does not exclude infection with M. tuberculosis. ??In patients at high risk for M. tuberculosis infection, a second test should be considered. TB1 Ag minus Nil 0.00 IU/ml 09/16/19 13:28 EST [facility] TB2 Ag minus Nil 0.00 IU/mL 09/16/19 13:28 EST [facility] Blood VENOUS BLOOD / Unknown Venipuncture / Unknown 09/13/2022 14:46 EST 09/16/2022 13:20 EST Narrative [facility] - 09/16/2022 13:28 EST Results were obtained with the [employer] QuantiFERON-TB Gold Plus CLIA. New platform in use 04/25/2021 Lawson Castaneda DO IMMUNOLOGY AND SEROL OGY ORDERABLES Performing Organization Address City/[facility] Co de Phone Number [facility] [address] [place] [address] * QUANTIFERON MITOGEN (PERFORMABLE) (09/13/2022 14:46 EST) Blood VENOUS BLOOD / Unknown Venipuncture / Unknown 09/13/2022 14:46 EST 09/13/2022 14:54 EST Lawson Castaneda DO IMMUNOLOGY AND SEROL OGY ORDERABLES Performing Organization Address City/[facility]/ZIP Co de Phone Number [facility] [address] [place] [address] * QUANTIFERON TB2 (PERFORMABLE) (09/13/2022 14:46 EST) Blood VENOUS BLOOD / Unknown Venipuncture / Unknown 09/13/2022 14:46 EST 09/13/2022 14:54 EST Lawson Greyson Leonel WOOD IMMUNOLOGY AND SEROL OGY ORDERABLES Performing Organization Address [facility] Co de Phone Number [facility] [address] [place] [address] * QUANTIFERON TB1 (PERFORMABLE) (09/13/2022 14:46 EST) Blood VENOUS BLOOD / Unknown Venipuncture / Unknown 09/13/2022 14:46 EST 09/13/2022 14:54 EST Lawson Castaneda DO IMMUNOLOGY AND SEROL OGY ORDERABLES Performing Organization Address [facility] [[email or web address]] de Phone Number [facility] [address] [place] [address] * QUANTIFERON NIL (PERFORMABLE) (09/13/2022 14:46 EST) Blood VENOUS BLOOD / Unknown Venipuncture / Unknown 09/13/2022 14:46 EST 09/13/2022 14:54 EST Lawson Castaneda DO IMMUNOLOGY AND SEROL OGY ORDERABLES Performing Organization Address [facility] Co de Phone Number [facility] [address] [place] [address] documented in this encounter Visit Diagnoses Diagnosis Other specified general medical examination- Primary documented in this encounter Care Teams Metal Extrusion Supervisor Relationship Specialty Start Date End Date Margarito Curry MD [facility] [place] [place] [address] PCP - General 09/18/21 documented as of this encounter
--- OUTSIDE RECORDS SUMMARY | 2024-05-28 15:41 | XMS_ITS | Encounter Summary ---
Author Organization [facility] Address [address] [place] [address] Care Team Providers Care Machine Stonecutter Name Role Phone Unavailable Primary Care Provider Unavailabl e Encounter Details Date Type Department Care Team (Latest Contact Info) Description 04/24/2007 11:36 EDT - 04/24/2007 11:59 EDT Hospital Encounter [facility] - Other [address] [place] [address] Cathy Diaz MD [address] [place] [phone] Discharge Disposition: Home or Self Care [...]
--- OUTSIDE RECORDS SUMMARY | 2024-05-28 15:41 | XMS_ITS | Encounter Summary ---
Author Organization [facility] Address [address] [place] [address] Care Team Providers Care Waxer Tender Name Role Phone Margarito Curry MD Primary Care Provider [phone] Encounter Details Date Type Department Care Team (Late st Contact Info) Description 02/05/2022 Lab Requisition [facility] Pathology & Laboratory Medicine - [facility] [address] [place] [address] Zeny Clemente MD [address] [place] [phone] Encounter for other general examination Social [...] management options, if applicable. 02/06/2022 11:15 T [facility] Final Diagnosis A. CERVIX, BIOPSY: - Low-grade squamous intraepithelial lesion (MIGUEL 1). 02/06/2022 11:15 [facility] Attestation By the signature below, the attending physician certifies that they have 1) personally conducted a gross and/or microscopic examination of the described specimen(s), and/or personally interpreted the results of laboratory testing of the described specimen(s), and 2) personally rendered or confirmed the above diagnosis. 02/06/2022 11:15 [facility] at [address] Clinical History LSIL Pap 02/06/2022 11:15 [facility] Gross Description A. Received in formalin labelled with proper patient identification (initials C, E) and cervical bx is an aggregate of light su mucinous material measuring 0.4 x 0.4 x 0.1 cm. Submitted entirely in A1. FRANKLIN ANDERSON(ASCP) 02/05/2022 19:37 02/06/2022 11:15 T [facility] Performing Lab [facility] 11:15 [facility] Scanned Images 02/06/2022 11:15 [facility] Tissue ENTIRE WALL OF CERVIX / Unknown 02/05/2022 11:22 EDT 02/05/2022 17:05 EDT Zeny Clemente MD PATHOLOGY ORDERABLES [facility] [address] [place] [address] documented in this encounter Visit Diagnoses Diagnosis Encounter for other general examination documented in this encounter Additional Health Concerns Infection Onset Date Last Indicated Resolved Time Influenza 07/22/2022 07/22/2022 08/01/2022 22:1 5 EST documented as of this encounter Care Teams Waxer Tender Relationship Specialty Start Date End Date Margarito Curry MD [address] [place] [address] PCP - General 09/18/21 documented as of this encounter
--- OUTSIDE RECORDS SUMMARY | 2024-05-28 15:41 | XMS_ITS | Encounter Summary ---
Author Organization [facility] Address [address] [place] [address] Care Team Providers Care Precision Agriculture Specialist Name Role Phone Cathy Diaz MD Primary Care Provider [phone] Margarito Curry MD Primary Care Provider [phone] Encounter Details Date Type Department Care Team (Late st Contact Info) Description 04/25/2020 Lab Requisition [facility] Pathology & Laboratory Medicine - [address] [phone] Outr Resulting Lab, Provider Social History Tobacco [...] Lyme Ab Negative Negative 04/26/2020 10:52 EDT [facility] Comment:New 3rd generation a ssay in use 01/26/2020 Blood VENOUS BLOOD / Unknown 04/23/2020 12:05 EDT 04/25/2020 16:40 EDT Provider Outr Resulting Lab IMMUNOLOGY A ND SEROLOGY ORDERABLES [facility] [address] [place] [address] documented in this encounter Visit Diagnoses Not on filedocumented in this encounter Additional Health Concerns Infection Onset Date Last Indicated Resolved Time Influenza 07/22/2022 07/22/2022 08/01/2022 22:1 5 EST documented as of this encounter Care Teams Precision Agriculture Specialist Relationship Specialty Start Date End Date Cathy Diaz MD [address] [place] [phone] PCP - General 01/05/09 09/17/21 Margarito Curry MD [address] [place] [address] [place] [address] PCP - General 09/18/21 documented as of this encounter
--- OUTSIDE RECORDS SUMMARY | 2024-05-28 15:41 | XMS_ITS | Encounter Summary ---
Author Organization [facility] Address [address] [place] [address] Care Team Providers Care Key Holder Name Role Phone Margarito Curry MD Primary Care Provider [phone] Encounter Details Date Type Department Care Team [...] on filedocumented in this encounter Care Teams Key Holder Relationship Specialty Start Date End Date Margarito Curry MD [place] [address] PCP - General 09/18/21 documented as of this encounter
--- OUTSIDE RECORDS SUMMARY | 2024-05-28 15:41 | XMS_ITS | Encounter Summary ---
Author Organization [facility] Address [address] [place] [address] Care Team Providers Care Thermal Engineer Name Role Phone Cathy Diaz MD Primary Care Provider [phone] Encounter Details Date Type Department Care Team (Late st Contact Info) Description 08/20/2007 Results Only [facility] - Maple conversion [address] [place] [address] Cathy Diaz MD [address] [place] [phone] Social History Tobacco Use Types Packs/Day [...] BLOOD GA S ORDERABLES Performing Organization Address [facility] Co de Phone Number [facility] [address] [place] [address] * (ABNORMAL) GLUCOSE, SERUM (08/20/2007 14:55 EST) Pathologist [facility] Glucose, Serum 66(L) 70 - 100 mg/dl [facility] 08/20/2007 14:5 5 EST 08/20/2007 20:09 EST Cathy Diaz MD CHEMISTRY & BLOOD GA S ORDERABLES Performing Organization Address [facility] de Phone Number [facility] [address] [place] [address] * FERRITIN (08/20/2007 14:55 EST) Pathologist [facility] Ferritin 16 10 - 291 ng/mL [facility] 08/20/2007 14:5 5 EST 08/20/2007 20:09 EST Cathy Diaz MD CHEMISTRY & BLOOD GA S ORDERABLES Performing Organization Address [facility] Co de Phone Number [facility] [address] [place] [address] * (ABNORMAL) HEMAGRAM (08/20/2007 14:55 EST) WBC [...] & PF4 ORD ERABLES Performing Organization Address City/[facility] Co de Phone Number [facility] [address] [place] [address] * TESTS ADDED BY PHONE (08/20/2007 14:55 EST) Tests to be added [facility] Diagnosis Code ANEMIA FLETC [facility] Who Called LUCRECIA FOR DR. PALMA [facility] Location Code [facility] 08/20/2007 14:5 5 EST 08/20/2007 20:09 EST Cathy Diaz MD CHEMISTRY & BLOOD GA S ORDERABLES Performing Organization Address [facility] de Phone Number [facility] [address] [place] [address] documented in this encounter Visit Diagnoses Not on filedocumented in this encounter Care Teams Thermal Engineer Relationship Specialty Start Date End Date Cathy Diaz MD [address] [place] [phone] PCP - General 01/05/09 09/17/21 documented as of this encounter
--- OUTSIDE RECORDS SUMMARY | 2024-05-28 15:41 | XMS_ITS | Encounter Summary ---
Author Organization [facility] Address [address] [place] [address] Care Team Providers Care Business Services Representative Name Role Phone Cathy Diaz MD Primary Care Provider [phone] Encounter Details Date Type Department Care Team (Late st Contact Info) Description 06/16/2007 Before PRISM Converted Visit (Maple) [facility] - Maple conversion [address] [place] [address] Josie Santillan MD [address] [place] [phone] Social History Tobacco Use Types Packs/Day Years [...] Josie Santillan MD - terry Job ID: [id number] Doc ID: [id number] cc: Cathy Diaz MD documented in this encounter Care Teams Business Services Representative Relationship Specialty Start Date End Date Cathy Diaz MD [address] [place] [phone] PCP - General 01/05/09 09/17/21 documented as of this encounter
--- OUTSIDE RECORDS SUMMARY | 2024-05-28 15:41 | XMS_ITS | Encounter Summary ---
Author Organization [facility] Address [address] [place] [address] Care Team Providers Care Phd Internship Name Role Phone Cathy Diaz MD Primary Care Provider [phone] Encounter Details Date Type Department Care Team (Late st Contact Info) Description 04/28/2019 Results Only [facility] [phone] [address] Social History Tobacco Use Types [...] ? MALIA LEDESMA ? Accession #: ? [id number] ? : ? 1990 (Age: 28) ??F ?Collect Date: ? 04/28/2019 ? Location: ? [facility] ? Receive Date: ? 04/29/2019 ? Provider: AGGIE MCCAIN CNM Copy to: TAMICA ELLIOTT CROP SETTING OUT MACHINE OPERATOR ? Final Report SPECIMEN ADEQUACY ? Satisfactory [...] types 16,18,31,33,35, 39,45,51,52,56,58, 59,66, and 68 by director of cloud services mediated amplification. Comments Document reviewed and electronically signed by: ? System Interface ? Report date: 05/05/2019 By the signature above, the attending physician certifies that he/she has personally conducted a gross and/or microscopic examination of the described specimens and rendered or confirmed the above diagnosis. End of Report [facility] 04/28/2019 04/29/2019 Aggie Mccain [facility] PATHOLOGY ORDERABLES [facility] [address] [place] [address] documented in this encounter Visit Diagnoses Not on filedocumented in this encounter Care Teams Phd Internship Relationship Specialty Start Date End Date Cathy Diaz MD [address] [place] [phone] PCP - General 01/05/09 09/17/21 documented as of this encounter
--- OUTSIDE RECORDS SUMMARY | 2024-05-28 15:41 | XMS_ITS | Encounter Summary ---
Author Organization [facility] Address [address] [place] [address] Care Team Providers Care Water Softener Service Supervisor Name Role Phone Cathy Diaz MD Primary Care Provider [phone] Encounter Details Date Type Department Care Team (Late st Contact Info) Description 11/15/2009 Results Only [facility] Laboratory Services - [facility] ([facility]) [address] [place], [place] [address] Cathy Diaz MD [address] [place] [phone] Social History Tobacco Use Types Packs/Day Years [...] Chlamydia trachomatis DNA detected by real estate agency licensee mediated amplification. [facility] GC Result No Neisseria gonorrhoeae DNA detected by real estate agency licensee mediated amplification. [facility] 11/15/2009 13:2 7 EDT 11/16/2009 13:27 EDT Cathy Diaz MD MICROBIOLOGY - GENER AL ORDERABLES [facility] [address] [place] [address] * CYTOPATHOLOGY (11/15/2009 0:00 EDT) Pathology Report: CYTOPATHOLOGY REPORT ? Reports generated via electronic interface contain original data; ? however they are lacking the format of the original report. ? Caution should be taken when reading/interpreti ng unformatted reports. ? Name: ? MALIA SCHAEFER ? Accession #: ? [id number] ? : ? 1990 (Age: 19) ??F [...] MD PATHOLOGY ORDERABLES [facility] [address] [place] [address] documented in this encounter Visit Diagnoses Not on filedocumented in this encounter Care Teams Water Softener Service Supervisor Relationship Specialty Start Date End Date Cathy Diaz MD [address] [place] [phone] PCP - General 01/05/09 09/17/21 documented as of this encounter
--- OUTSIDE RECORDS SUMMARY | 2024-05-28 15:41 | XMS_ITS | Encounter Summary ---
Author Organization [facility] Address [address] [place] [address] Care Team Providers Care Installation Tech Name Role Phone Cathy Diaz MD Primary Care Provider [phone] Margarito Curry MD Primary Care Provider [phone] Encounter Details Date Type Department Care Team (Late st Contact Info) Description 05/17/[address] [facility] Pathology & Laboratory Medicine - [address] [id number] Outr Resulting Lab, Provider Social History Tobacco [...] Surface Ag Negative Negative 05/18/2021 10:10 EDT [facility] Blood VENOUS BLOOD / Unknown 05/16/2021 11:30 EDT 05/17/2021 16:14 EDT Provider Outr Resulting Lab CHEMISTRY & BLOOD GAS ORDERABLES [facility] [address] [place] [address] documented in this encounter Visit Diagnoses Not on filedocumented in this encounter Additional Health Concerns Infection Onset Date Last Indicated Resolved Time Influenza 07/22/2022 07/22/2022 08/01/2022 22:1 5 EST documented as of this encounter Care Teams Installation Tech Relationship Specialty Start Date End Date Cathy Diaz MD [address] [place] [phone] PCP - General 01/05/09 09/17/21 Margarito Curry MD [address] [place] [address] [place] [address] PCP - General 09/18/21 documented as of this encounter
--- OUTSIDE RECORDS SUMMARY | 2024-05-28 15:41 | XMS_ITS | Encounter Summary ---
Author Organization [facility] Address [address] [place] [address] Care Team Providers Care Medical Claims Manager Name Role Phone Unavailable Primary Care Provider Unavailabl e Encounter Details Date Type Department Care Team (Latest Contact Info) Description 09/07/2008 21:22 EST Hospital Encounter [facility] - Other [address] [place] [address] Cathy Diaz MD [address] [place] [phone] Discharge Disposition: Home or Self Care Social [...] Result No Chlamydia trachomatis DNA detected by senior data modeler mediated amplification. [facility] Result No Neisseria gonorrhoeae DNA detected by senior data modeler mediated amplification. [facility] 09/26/2008 7:43 EST 09/27/2008 7:43 EST Cathy Diaz MD MICROBIOLOGY - GENER AL ORDERABLES Performing Organization Address [facility] Co de Phone Number [facility] [address] [place] [address] * FERRITIN (09/07/2008 16:45 EST) Ferritin 36 10 - 291 ng/mL [facility] 09/07/2008 16:4 5 EST 09/07/2008 20:28 EST Cathy Diaz MD CHEMISTRY & BLOOD GA S ORDERABLES Performing Organization Address [facility] Co de Phone Number [facility] [address] [place] [address] * TESTS ADDED BY PHONE (09/07/2008 16:45 EST) Tests to be added REJI [facility] Diagnosis Code ANEMIA FLENELLIE [facility] Who Called YASIR FOR DR CATHY [facility] Location Code [facility] 09/07/2008 16:4 5 EST 09/07/2008 20:28 EST Cathy Diaz MD CHEMISTRY & BLOOD GA S ORDERABLES Performing Organization Address [facility] de Phone Number [facility] [address] [place] [address] * (ABNORMAL) HEMAGRAM AND DIFFERENTIAL (09/07/2008 16:45 [...] [facility] ABS Basophils 0.02 K[facility] Type of Diff: Automated [facility] 09/07/2008 16:4 5 EST 09/07/2008 20:28 EST Cathy Diaz MD PACKAGES & DNA PROBE ORDERABLES Performing Organization Address [facility] de Phone Number [facility] [address] [place] [address] * MONO-TEST (09/07/2008 16:45 EST) [place]-Test Neg NEG [facility] 09/07/2008 16:4 5 EST 09/07/2008 20:28 EST Cathy Diaz MD CHEMISTRY & BLOOD GA S ORDERABLES Performing Organization Address [facility] de Phone Number [facility] [address] [place] [address] * COMPREHENSIVE METABOLIC PANEL (09/07/2008 16:45 EST) [...] GA S ORDERABLES [facility] [address] [place] [address] documented in this encounter Visit Diagnoses Not on filedocumented in this encounter
--- OUTSIDE RECORDS SUMMARY | 2024-05-28 15:41 | XMS_ITS | Encounter Summary ---
Author Organization [facility] Address [address] [place] [address] Care Team Providers Care Transformer Stock Clerk Name Role Phone Margarito Curry MD Primary Care Provider [phone] Encounter Details Date Type Department Care Team (Late st Contact Info) Description 07/22/2022 Lab Requisition [facility] Pathology & Laboratory Medicine - [facility] [address] [place], [place] [address] Outr Resulting Lab, Provider Social History Tobacco [...] 1:36 EST [facility] FLU B RNA Result (FLBRES) Negative Negative 07/23/2022 1:36 EST [facility] RSV RNA Result (RSVRES) Negative Negative 07/23/2022 1:36 EST [facility] Swab ENTIRE NASOPHARYNX / Unknown 07/22/2022 12:16 EST 07/22/2022 22:23 EST Provider Outr Resulting Lab MICROBIOLOGY - GENERAL ORDERABLES Performing Organization Address City/State/[facility] Co de Phone Number [facility] [address] [place] [address] documented in this encounter Visit Diagnoses Not on filedocumented in this encounter Additional Health Concerns Infection Onset Date Last Indicated Resolved Time Influenza 07/22/2022 07/22/2022 08/01/2022 22:1 5 EST documented as of this encounter Care Teams Transformer Stock Clerk Relationship Specialty Start Date End Date Margarito Curry MD [place] [address] PCP - General 09/18/21 documented as of this encounter
--- OUTSIDE RECORDS SUMMARY | 2024-05-28 15:41 | XMS_ITS | Encounter Summary ---
Author Organization [facility] Address [address] [place] [address] Care Team Providers Care Glue Drier Operator Name Role Phone Cathy Diaz MD Primary Care Provider [phone] Margarito Curry MD Primary Care Provider [phone] Encounter Details Date Type Department Care Team (Late st Contact Info) Description 04/07/2020 Lab Requisition [facility] Pathology & Laboratory Medicine - [address] [phone] Outr Resulting Lab, Provider Social History Tobacco [...] gonorrhoeae Result Negative Negative 04/10/2020 14:02 EDT [facility] Chlamydia trachomatis Result Negative Negative 04/10/2020 14:02 EDT [facility] Urine URINE / Unknown 04/06/2020 1 6:30 EDT 04/07/2020 15:33 EDT Narrative [facility] - 04/10/2020 14:02 EDT A first catch urine specimen is acceptable for detection of Gonorrhea and Chlamydia, but might detect up to 10% fewer infections when compared with vaginal and endocervical swab samples. Provider Outr Resulting Lab MICROBIOLOGY - GENERAL ORDERABLES [facility] [address] [place] [address] documented in this encounter Visit Diagnoses Not on filedocumented in this encounter Additional Health Concerns Infection Onset Date Last Indicated Resolved Time Influenza 07/22/2022 07/22/2022 08/01/2022 22:1 5 EST documented as of this encounter Care Teams Glue Drier Operator Relationship Specialty Start Date End Date Cathy Diaz MD [address] [place] [phone] PCP - General 01/05/09 09/17/21 Margarito Curry MD [address] [place] [address] PCP - General 09/18/21 documented as of this encounter
--- OUTSIDE RECORDS SUMMARY | 2024-05-28 15:41 | XMS_ITS | Encounter Summary ---
Author Organization [facility] Address [address] [place] [address] Care Team Providers Care Minor League Baseball Player Name Role Phone Margarito Curry MD Primary Care Provider [phone] Encounter Details Date Type Department Care Team (Late st Contact Info) Description 11/03/2021 Lab Requisition [facility] Pathology & Laboratory Medicine - [facility] [address] [place], [place] [id number] Outr Resulting Lab, Provider Social History Tobacco [...] Syphilis Serology Negative Negative 11/05/2021 11:[address] [facility] Blood VENOUS BLOOD / Unknown 11/02/2021 12:50 EDT 11/03/2021 21:52 EDT Provider Outr Resulting Lab IMMUNOLOGY A ND SEROLOGY ORDERABLES Performing Organization Address City/State/[place] Co de Phone Number [facility] [address] [place] [address] documented in this encounter Visit Diagnoses Not on filedocumented in this encounter Additional Health Concerns Infection Onset Date Last Indicated Resolved Time Influenza 07/22/2022 07/22/2022 08/01/2022 22:1 5 EST documented as of this encounter Care Teams Minor League Baseball Player Relationship Specialty Start Date End Date Margarito Curry MD [address] [place] [address] PCP - General 09/18/21 documented as of this encounter
--- OUTSIDE RECORDS SUMMARY | 2024-05-28 15:41 | XMS_ITS | Encounter Summary ---
Author Organization [facility] Address [address] [place] [address] Care Team Providers Care Tank Storage Supervisor Name Role Phone Cathy Diaz MD Primary Care Provider [phone] Encounter Details Date Type Department Care Team (Latest Contact Info) Description 11/15/2009 13:13 EDT - 11/15/2009 13:16 EDT Hospital Encounter [facility] - Other [address] [place] [address] Cathy Diaz MD [address] [place] [phone] Discharge Disposition: Home or Self Care Social [...] filedocumented in this encounter Care Teams Tank Storage Supervisor Relationship Specialty Start Date End Date Cathy Diaz MD [address] [place] [phone] PCP - General 01/05/09 09/17/21 documented as of this encounter
--- OUTSIDE RECORDS SUMMARY | 2024-05-28 15:41 | XMS_ITS | Encounter Summary ---
Author Organization [facility] Address [address] [place] [address] Care Team Providers Care Technology Analyst Name Role Phone Nesha Waldrop MD Primary Care Provider [phone] Reason for Visit * Reason Comments Alcohol [...] 22:03 EDT - 04/09/2011 9:44 EDT Emergency [facility] Emergency Department - [address] [address] Kyle Marin MD [address] [place] [phone] Mitzy Vinson MD [address] [place] [phone] Vijay Colon MD Emergency, MD Tip [...] ACUTE ALCOHOL INTOXICATION: AFTER YOUR CHILD'S VISIT (YI) documented in this encounter Medications at Time [...] relays pt's ex-boyfriend was at pt's house [facility] and had unk med that [...] encounter Miscellaneous Notes * Scanned Note-Null - Tariff Compiler, Scan - 04/08/2011 0000 EDT * Scanned Note-Null - Tariff Compiler, Scan - 04/08/2011 0000 EDT * Scanned Note-Null - Tariff Compiler, Scan - 04/08/2011 0000 EDT documented in [...] BPA POINT OF CARE 04/09/2011 7:51 EDT iMtzy Vinson MD POINT OF CARE TEST O [...] MD URINALYSIS O RDERABLES Performing Organization Address [facility] Co de Phone Number [facility] [address] [place] [address] * HCG (04/08/2011 22:35 EDT) HCG <4 <4 mIU/ml [facility] Comment: Reference Range: Positive = >10 Borderline = 4-10 ??recommend repeat. Negative = <4 Moderate hemolysis Blood specimen (specimen) 04/08/2011 22:35 EDT 04/08/2011 22:41 EDT Kyle Marin MD CHEMISTRY & BLOOD GAS ORDERABLES Performing Organization Address City/[facility] de Phone Number [facility] [address] [place] [address] * SALICYLATE (04/08/2011 22:35 EDT) Salicylate <1.0 mg/dl [facility] Comment: ??Negative = <2 mg/dl Therapeutic = <20 mg/dl Toxic = >30 mg/dl Moderate hemolysis Blood specimen (specimen) 04/08/2011 22:35 EDT 04/08/2011 22:41 EDT Kyle Marin MD CHEMISTRY & BLOOD GAS ORDERABLES Performing Organization Address [facility] de Phone Number [facility] [address] [place] [address] * ACETAMINOPHEN (04/08/2011 22:35 EDT) Acetaminophen <10.0 ug/ml [facility] Comment: ??Therapeutic range: ??10 - 30 ug/mL Possible toxicity: ??150 - 200 ug/mL Probable toxicity: ??>200 ug/mL Moderate hemolysis Blood specimen (specimen) 04/08/2011 22:35 EDT 04/08/2011 22:41 EDT Kyle Marin MD CHEMISTRY & BLOOD GAS ORDERABLES Performing Organization Address [facility] de Phone Number [facility] [address] [place] [address] * (ABNORMAL) ETHANOL, BLOOD (04/08/2011 22:35 EDT) Ethanol 286(H) <10 mg/dl [facility] Comment:Moderate hemolysis Blood specimen (specimen) 04/08/2011 22:35 EDT 04/08/2011 22:41 EDT Kyle Marin MD CHEMISTRY & BLOOD GAS ORDERABLES Performing Organization Address [facility] de Phone Number [facility] [address] [place] [address] * (ABNORMAL) POCT ALCOHOL BREATH TEST (04/08/2011 22:30 EDT) Ethanol Lvl 0.250(A) 0.000 % BPA POINT OF CARE 04/08/2011 22:3 0 EDT Kyle Marin MD POINT OF CAR E TEST ORDERABLES POINT OF CARE documented in this encounter Visit Diagnoses Diagnosis Very severe alcohol intoxication ([facility]) Alcohol abuse, unspecified Anxiety Anxiety state, [...] 04/08/2011 documented in this encounter Care Teams Technology Analyst Relationship Specialty Start Date End Date Nesha Waldrop MD [address] [place] [phone] PCP - General 01/05/09 09/17/21 documented as of this encounter
--- OUTSIDE RECORDS SUMMARY | 2024-05-28 15:41 | XMS_ITS | Encounter Summary ---
Author Organization [facility] Address [address] [place] [address] Care Team Providers Care Recycling Operator Name Role Phone Unavailable Primary Care Provider Unavailabl e Encounter Details Date Type Department Care Team (Latest Contact Info) Description 08/20/2007 9:05 EST - 08/20/2007 11:59 EST Hospital Encounter [facility] - Other [address] [place] [address] Cathy Diaz MD [address] [place] [phone] Discharge Disposition: Home or Self Care [...]
--- OUTSIDE RECORDS SUMMARY | 2024-05-28 15:41 | XMS_ITS | Encounter Summary ---
Author Organization [facility] Address [address] [place] [address] Care Team Providers Care Leasing Specialist Name Role Phone Cathy Diaz MD Primary Care Provider Margarito Curry MD Primary Care Provider [phone] Encounter Details Date Type Department Care Team (Late st Contact Info) Description 11/01/2020 Lab Requisition [facility] Pathology & Laboratory Medicine - [address] [address] Janel Bernal, INSULATION CUTTER [address] [place] [address] Encounter for other general examination [...] System with Manual Evaluation 11/09/2020 11:27 EDT [facility] Specimen Adequacy Satisfactory for Evaluation - transformation zone component present 11/09/2020 11:27 EDT [facility] General Categorization Negative for intraepithelial lesion or malignancy 11/09/2020 11:27 EDT [facility] Attestation . 11/09/2020 11:27 EDT [facility] at 1127 Clinical History See below 11/10/19 11:27 EDT [facility] Performing Lab [facility] 11/09/2020 11:27 EDT [facility] Scanned Images 11/09/2020 11:27 EDT [facility] Papanicolaou smear specimen (specimen) CERVIX UTERI STRUCTURE / Unknown 11/01/2020 8:40 EDT 11/02/2020 11:02 EDT Janel A Gabe INSULATION CUTTER PATHOLOGY ORDERAB LES [facility] [address] [place] [address] * (ABNORMAL) CHLAMYDIA/N. GONORRHOEAE AMPLIFIED RNA, THINPREP (11/01/2020 8:40 EDT) Neisseria gonorrhoeae Result Negative Negative 11/02/2020 13:53 EDT [facility] Chlamydia trachomatis Result Positive(A) Negative 11/02/2020 13:53 EDT [facility] Papanicolaou smear specimen (specimen) CERVIX UTERI STRUCTURE / Unknown 11/01/2020 8:40 EDT 11/02/2020 7:57 EDT [place] A Gabe INSULATION CUTTER MICROBIOLOGY - GE NERAL ORDERABLES [facility] [address] [place] [address] documented in this encounter Visit Diagnoses Diagnosis Encounter for other general examination documented in this encounter Additional Health Concerns Infection Onset Date Last Indicated Resolved Time Influenza 07/22/2022 07/22/2022 08/01/2022 22:1 5 EST documented as of this encounter Care Teams Leasing Specialist Relationship Specialty Start Date End Date Cathy Diaz MD [address] [place] [phone] PCP - General 01/05/09 09/17/21 Margarito Curry MD [address] [place] [id number] PCP - General 09/18/21 documented as of this encounter
--- OUTSIDE RECORDS SUMMARY | 2024-05-28 15:41 | XMS_ITS | Encounter Summary ---
Author Organization [facility] Address [address] [place] [address] Care Team Providers Care Program Services Assistant Name Role Phone Cathy Diaz MD Primary Care Provider [phone] Encounter Details Date Type Department Care Team (Late st Contact Info) Description 07/25/2003 Results Only [facility] [address] [place] [address] Maricel Lerner MD [address] [place] [phone] Social History Tobacco Use Types Packs/Day [...] ISOLATED [facility] Report Status Final [id number] [facility] 07/25/2003 20:5 9 EST 07/25/2003 20:59 EST Maricel Lerner MD MICROBIOLOGY - GENER AL ORDERABLES [facility] [address] [place] [address] documented in this encounter Visit Diagnoses Not on filedocumented in this encounter Care Teams Program Services Assistant Relationship Specialty Start Date End Date Cathy Diaz MD [address] [place] [phone] PCP - General 01/05/09 09/17/21 documented as of this encounter
[2024-05-28 15:45] LABS: ALT 59 U/L (14-59); AST 39 U/L (15-37); Albumin 3.8 g/dL (3.4-5.0); Alkaline Phosphatase 65 U/L (46-116); Anion Gap 13.4 mmol/L (3-11); BUN 7 mg/dL (7-18); Bilirubin, Total 0.56 mg/dL (0.2-1.0); CO2 25.6 mmol/L (21.0-32.0); CREATININE 0.7 mg/dL (0.55-1.02); Calcium 8.9 mg/dL (8.5-10.1); Chloride 110 mmol/L (98-107); ETHANOL BLOOD 97.7 mg/dL (<10); Estimated GFR 118.51 (mL/min/1.73m2); Glucose 83 mg/dL (74-106); Magnesium 1.8 mg/dL (1.8-2.4); Potassium 3.9 mmol/L (3.5-5.1); Sodium 149 mmol/L (136-145); Total Protein 7.3 g/dL (6.4-8.2)
--- NOTE | 2024-05-28 16:54 | W.PM.HP.N ---
Date of service: 05/28/24 Time of Service: 17:28 Assessment and Plan Assessment and plan (1) Alcohol withdrawal: Status: Acute Assessment and plan: - As noted in HPI patient has a longstanding history of alcohol use disorder and failed attempts at alcohol withdrawal -She has agreed to admission and has been loaded with IV phenobarb in the emergency department based on her ideal weight -Will continue as needed IV phenobarbital based on the CIWA protocol -Will also continue disulfiram (2) Generalized anxiety disorder: Status: Chronic Assessment and plan: -Continue home clonidine, sertraline (3) Depression: Status: Acute Assessment and plan: As noted above (4) ADHD (attention deficit hyperactivity disorder), combined type: Status: Chronic Assessment and plan: Continue homeless dextroamphetamine History of Present Illness History of Present Illness Chief Complaint: Alcohol withdrawal Narrative: 33-year-old female with a past medical history of alcohol use disorder with history of alcohol withdrawal but without history of seizures, anxiety, depression, ADHD who presented to the emergency department for evaluation for alcohol withdrawal symptoms. Patient had been seen in the emergency department 4 times in the previous day 05/27/2024 HM having left the emergency department AGAINST MEDICAL ADVICE prior to being seen stating that she was having difficulty sitting still when beginning to go through withdrawal symptoms and left to go home to drink. As a presenting back to the emergency department earlier today on 05/28/2024 she stated her last consumed alcoholic beverage was at 2 AM earlier that morning and woke up this morning and immediately presented to the emergency department for evaluation for alcohol withdrawal stating that she feels anxious and tremulous. She stated that she did not experience any seizures prior to arrival. Patient stated that she was highly interested in engaging with detox resources and has had a difficult time with rapid early relapses often requiring admission for phenobarbital. She was seen by production recovery operator in the emergency department and combination of shared decision making given her moderate withdrawal symptoms with CIWA scores in the low teens, decision was made for the patient to start on loading dose of IV phenobarbital and to be admitted to the hospital for ongoing management of alcohol withdrawal. Review of Systems All systems reviewed & are unremarkable except as noted in HPI and below PFSH All Active Problems (Updated 05/28/24 @ 16:58 by Emili Ferreira MD) Alcohol withdrawal (Acute) Acute alcohol intoxication (Acute) Smoker (Acute) Alcoholic hepatitis (Chronic) Alcohol use disorder, severe, dependence (Chronic) Herpes simplex type 1 infection (Acute 12/19/16) Eczema (Chronic) ADHD (attention deficit hyperactivity disorder), combined type (Chronic) Generalized anxiety disorder (Chronic) Depression (Acute) Medical History (Updated 05/28/24 @ 16:58 by Emili Ferreira MD) Benzodiazepine abuse Presence of intrauterine contraceptive device (IUD) Paragard IUD placed 12/01/23 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 Vanessa Bryan MD History of calculus of kidney during (12/19/16) History of substance abuse (12/19/16) History of acute pyelonephritis Surgical History EGD w/Bx for H.Pylori (07/29/08) [facility] Cystoscopy (01/05/18) [facility] Urology with R ureteral stent placement Family History Father , OD at age 42. Substance abuse Essential hypertension Mother Mental disorder Bipolar d/o Neoplasm small cell neuroendocrine carcinoma Sister Substance abuse Mental disorder Bipolar d/o Brother Substance abuse Mental disorder Bipolar d/o Brother Substance abuse Mental disorder Bipolar d/o Grandmother Neoplasm Breast CA Social History Smoking/Tobacco Use Status: Current every day Tobacco Type: cigarettes and e-cigarettes Tobacco: How many years used: 10 Quit status: has quit before Counseling given: provider counseling Smoking risk assessment performed?: Yes Alcohol Intake: current Alcohol Intake frequency: 3 or more drinks per day Alcohol type: beer, wine and hard liquor Details: Decided to quit drinking. Stopped 01/2019 Drug use: Never Substance use type: marijuana Details: Pt states she drinks about 20 white claws on a daily basis Adopted: No Foster care: No Household members: significant other and children Housing: apartment Number of Children: 2 current occupation: [employer] Pets and animals: Yes (1 dog) What type of physical activity do you participate in: regular exercise Duration: other Details: cleaning Frequency: daily Do you feel safe at home: Yes Do you feel safe in your relationship?: Yes Female Reproductive History Menstrual Duration of menses: 6-7 days control method: copper IUCD History History 2 Para 2 Hx # Term Pregnancies 2 Multiple births 0 Hx # Pregnancies 0 Ectopic pregnancies 0 AB induced 0 Hx Number of Living Children 2 AB spontaneous 0 Past Pregnancies Del. Date GA/Weeks # Preg Succ Route Wgt Sex Labor Lgth Anesthesia Location Prov Complic 11/20/16 40 vaginal 6 lb 7 oz Female 9 hours regional 12/22/18 40 No vaginal 8 lb 2 oz Female Vale Bauer CNM Delivery Date: 11/20/16 Last Updated by: Vale Bauer Delivered at [facility] Allergies and Home Medications Allergies Allergy/AdvReac Type Severity Reaction Status Date / Time Penicillins AdvReac Intermediate Hives Verified 05/28/24 14:44 Home Medications ?Medication ?Instructions ?Recorded ?Confirmed ?Type sertraline 50 mg tablet 100 mg PO HS 02/02/24 05/28/24 History disulfiram 250 mg tablet 250 mg PO DAILY 02/09/24 05/28/24 History lisdexamfetamine 50 mg capsule 40 mg PO DAILY 02/10/24 05/28/24 History multivitamin (Multiple Vitamins 1 tab PO QAM #30 tabs 02/12/24 05/28/24 Rx tablet) clonidine HCl 0.1 mg tablet 0.1 mg PO DAILY PRN 03/17/24 05/28/24 History Exam Narrative Exam Narrative: Well-appearing female sitting up on the edge of the bed in no acute distress, mildly anxious and tremulous but otherwise appears well, heart regular rhythm, lungs clear to auscultation bilaterally, abdomen soft, nontender, nondistended Results Labs 05/28/24 15:15 05/28/24 15:15 Labs: Laboratory Results - last 24 hr 05/28/24 05/28/24 14:51 15:15 WBC 8.09 RBC 4.54 Hgb 14.0 Hct 43.1 MCV 95 MCH 30.8 MCHC 32.5 RDW 14.4 Plt Count 310 MPV 9.6 Immature Gran % 0.2 Neutrophils % 83.2 Lymphocytes % 10.6 Monocytes % 4.4 Eosinophils % 0.9 Basophils % 0.7 Nucleated RBC % 0.0 Absolute Neutrophils 6.72 H Absolute Lymphocytes 0.86 L Absolute Monocytes 0.36 Absolute Eosinophils 0.07 Absolute Basophils 0.06 Sodium 149 H Potassium 3.9 Chloride 110 H Carbon Dioxide 25.6 Anion Gap 13.4 H BUN 7 Creatinine 0.7 Est GFR (CKD-EPI 2020) 118.51 Glucose 83 Calcium 8.9 Magnesium 1.8 Total Bilirubin 0.56 AST 39 H ALT 59 Alkaline Phosphatase 65 Total Protein 7.3 Albumin 3.8 Urine Color Yellow Urine Clarity Clear Urine pH 6.0 Ur Specific [place] 1.025 Urine Protein 30 H Urine Ketones Negative Urine Blood Moderate H Urine Nitrite Negative Urine Bilirubin Negative Urine Urobilinogen 0.2 Ur Leukocyte Esterase Negative Urine RBC 3-5 H Urine WBC 3-5 Ur Epithelial Cells Few Urine Crystals Negative Urine Bacteria Rare Urine Casts Negative Urine Mucus Moderate Ur Culture Indicated? No Urine Glucose Negative Urine Opiates Screen Negative Urine Methadone Screen Negative Ur Barbiturates Screen Negative Ur Tricyclics Screen Negative Ur Amphetamines Screen Negative U Benzodiazepines Scrn Negative Urine Cocaine Screen Negative Ur THC Screen Negative Ethyl Alcohol 97.7 H Last Vital Signs Temp 98.1 F 05/28/24 14:34 Pulse 120 H 05/28/24 14:34 Resp 16 05/28/24 15:20 BP 149/100 H 05/28/24 14:34 PAWSS Have you Been Recently Intoxicated or Drunk Within the Last 30 days?: Yes Have you Ever Experienced Previous Episodes of Alcohol Withdrawal?: Yes Have you ever Experienced Delirium Tremens(DT)s?: Yes Have you ever undergone Alcohol Rehabilitation Treatment (i.e, inpt ot outpatient treatment programs)?: Yes Have you ever Experienced Blackouts?: Yes Have you ever Combined Alcohol with other Downers within the last 90 days?: No Have you ever Combined Alcohol with any other Substance of Abuse during the last 90 days?: Yes Positive Blood Alcohol level on Presentation? [PCS.BAL]: No Evidence of Increased Autonomic Activity (i.e. HR>120, tremor, sweating, agitation, nausea)?: Yes Result: 8 Time Spent Time spent with Patient: >75 minutes Time was spent: preparing to see the patient(eg.review tests), obtaining and/or reviewing separately [facility], ordering medications,tests, procedures, referring, communicating with other health career orientation teacher, indepentently interpreting results, counseling the patient and care coordination
[2024-05-28] MEDS: PHENobarbital 140 MG in Normal Saline 50 ML 100 MG IVPB (17:10)
[2024-05-28] MEDS: Acetaminophen 325 MG TAB PO (21:04)
[2024-05-28] MEDS: Sertraline 50 MG TAB 100 MG PO (21:05)
[2024-05-28] MEDS: cloNIDine 0.1 MG TAB PO (21:05)
[2024-05-28] MEDS: PHENobarbital 100 MG in Normal Saline 50 ML IVPB ×2 (21:06→23:49)
[2024-05-28] MEDS: Nicotine 4 MG GUM CH (21:59)
[2024-05-28] MEDS: Apixaban 5 MG TAB PO (21:59)
[2024-05-29] MEDS: Polyethylene Glycol 3350 17 GM PACKET PO ×2 (01:17→08:55)
[2024-05-29] MEDS: cloNIDine 0.1 MG TAB 0.2 MG PO ×2 (01:18→23:58)
[2024-05-29 06:42] LABS: HCT 38.7 % (36.0-46.0); HGB 12.6 g/dL (11.2-15.7); MCHC 32.6 % (32.0-36.0); MCV 95 fL (80-95); MPV 9.8 fL (8.0-11.0); Platelet Count 231 10^3/uL (130-400); RBC 4.06 10^6/uL (3.93-5.22); RDW 13.6 % (11.7-14.6); RDW-SD 48.4 fL; WBC 7.07 10^3/uL (4.4-10.8)
[2024-05-29 07:06] LABS: Anion Gap 8.2 mmol/L (3-11); BUN 19 mg/dL (7-18); CO2 28.8 mmol/L (21.0-32.0); CREATININE 0.7 mg/dL (0.55-1.02); Calcium 9.3 mg/dL (8.5-10.1); Chloride 105 mmol/L (98-107); Estimated GFR 118.51 (mL/min/1.73m2); Glucose 97 mg/dL (74-106); Magnesium 1.7 mg/dL (1.8-2.4); Sodium 142 mmol/L (136-145)
[2024-05-29 08:10] VITALS: BP 119/91; PULSE 54; RESP 17; TEMP 36.6; O2SAT 99
[2024-05-29] MEDS: Multivitamin TAB 1 TAB PO (08:47)
[2024-05-29] MEDS: Folic Acid 1 MG TAB PO (08:47)
[2024-05-29] MEDS: Apixaban 5 MG TAB PO ×2 (08:47→19:58)
[2024-05-29] MEDS: Thiamine 100 MG TAB PO (08:47)
[2024-05-29] MEDS: Ondansetron O.D.T. 4 MG TABEF PO ×2 (08:47→17:07)
[2024-05-29] MEDS: Normal Saline Flush 10 ML SYR IVP ×2 (08:50→20:12)
[2024-05-29] MEDS: Docusate Sodium 100 MG CAP PO (08:55)
--- NOTE | 2024-05-29 09:45 | W.PM.PROGNOT ---
Date of Service Date of service: 05/29/24 Time of Service: 09:45 Assessment and Plan Assessment and plan (1) Alcohol withdrawal: Status: Acute Assessment and plan: -Lngstanding history of alcohol use disorder and failed attempts at alcohol withdrawal as outpatient. -S/p loading with IV phenobarbitol, currently symptoms are mild. -Will continue as needed IV phenobarbital based on the [facility] protocol -If symptoms continue to be mild, she may be able to be discharged, likely tomorrow morning. Qualifiers: Complication of substance-induced condition: uncomplicated Qualified Code(s): F10.930 - Alcohol use, unspecified with withdrawal, uncomplicated (2) Alcohol use disorder, severe, dependence: Status: Chronic Assessment and plan: -Disulfiram was resumed this morning, which may be contributing to nausea, but not a severe reaction. -We discussed other evidence-based therapies and rationale for those. I encouraged her to use naltrexone as a tool -She is still hesitant to consider inpatient rehabilitation, though she would be a good candidate. (3) Generalized anxiety disorder: Status: Chronic Assessment and plan: -Continue home clonidine, sertraline (4) ADHD (attention deficit hyperactivity disorder), combined type: Status: Chronic Assessment and plan: Continue homeless dextroamphetamine Subjective Subjective Patient reports: voiding w/o difficulty and nausea; denies vomiting, shortness of breath or fever Interval history since last seen: Was able to get a little sleep, but not a lot. Got loading doses of phenobarbitol. Clonidine given, helps with sleep and anxiety. She has nausea and a mild headache. This morning. She did eat some. She doesn't feel shakey now. She states she had 3 months sober with disulfuram, then stopped and relapsed and was drinking for a month. She has contacted her sponsor and plans to get back into meetings. Exam Narrative Exam Narrative: Well-appearing female sitting up on the edge of the bed in no acute distress, A&O x 4, mildly anxious, not currently tremulous. Heart regular rhythm, lungs clear to auscultation bilaterally, abdomen soft, nontender, nondistended. Extremities non-tender, no edema. Objective Last Vital Signs Temp 36.6 C 05/29/24 08:10 Pulse 54 L 05/29/24 08:10 Resp 17 05/29/24 08:10 BP 119/91 H 05/29/24 08:10 Pulse Ox 99 05/29/24 08:10 Laboratory Results - last 24 hr 05/28/24 05/28/24 05/29/24 14:51 15:15 06:35 WBC 8.09 7.07 RBC 4.54 4.06 Hgb 14.0 12.6 Hct 43.1 38.7 MCV 95 95 MCH 30.8 31.0 MCHC 32.5 32.6 RDW 14.4 13.6 Plt Count 310 231 MPV 9.6 9.8 Immature Gran % 0.2 Neutrophils % 83.2 Lymphocytes % 10.6 Monocytes % 4.4 Eosinophils % 0.9 Basophils % 0.7 Nucleated RBC % 0.0 Absolute Neutrophils 6.72 H Absolute Lymphocytes 0.86 L Absolute Monocytes 0.36 Absolute Eosinophils 0.07 Absolute Basophils 0.06 Sodium 149 H 142 Potassium 3.9 4.0 Chloride 110 H 105 Carbon Dioxide 25.6 28.8 Anion Gap 13.4 H 8.2 BUN 7 19 H Creatinine 0.7 0.7 Est GFR (CKD-EPI 2020) 118.51 118.51 Glucose 83 97 Calcium 8.9 9.3 Magnesium 1.8 1.7 L Total Bilirubin 0.56 AST 39 H ALT 59 Alkaline Phosphatase 65 Total Protein 7.3 Albumin 3.8 Urine Color Yellow Urine Clarity Clear Urine pH 6.0 Ur Specific [place] 1.025 Urine Protein 30 H Urine Ketones Negative Urine Blood Moderate H Urine Nitrite Negative Urine Bilirubin Negative Urine Urobilinogen 0.2 Ur Leukocyte Esterase Negative Urine RBC 3-5 H Urine WBC 3-5 Ur Epithelial Cells Few Urine Crystals Negative Urine Bacteria Rare Urine Casts Negative Urine Mucus Moderate Ur Culture Indicated? No Urine Glucose Negative Urine Opiates Screen Negative Urine Methadone Screen Negative Ur Barbiturates Screen Negative Ur Tricyclics Screen Negative Ur Amphetamines Screen Negative U Benzodiazepines Scrn Negative Urine Cocaine Screen Negative Ur THC Screen Negative Ethyl Alcohol 97.7 H PAWSS Have you Been Recently Intoxicated or Drunk Within the Last 30 days?: Yes Have you Ever Experienced Previous Episodes of Alcohol Withdrawal?: Yes Have you ever Experienced Withdrawal Seizures?: No Have you ever Experienced Delirium Tremens(DT)s?: Yes Have you ever undergone Alcohol Rehabilitation Treatment (i.e, inpt ot outpatient treatment programs)?: Yes Have you ever Experienced Blackouts?: Yes Have you ever Combined Alcohol with other Downers within the last 90 days?: No Have you ever Combined Alcohol with any other Substance of Abuse during the last 90 days?: No Positive Blood Alcohol level on Presentation? [PCS.BAL]: Yes Evidence of Increased Autonomic Activity (i.e. HR>120, tremor, sweating, agitation, nausea)?: Yes Result: 7 Time Spent with Patient Time Spent with Patient: 35-49 minutes Time was spent: preparing to see the patient(eg.review tests), obtaining and/or reviewing separately otained hiistory, ordering medications,tests, procedures, referring, communicating with other health health care attorney, indepentently interpreting results, counseling the patient and care coordination
--- NOTE | 2024-05-29 10:07 | PDOC.CMIN ---
Date of service: 05/29/24 Time of Service: 10:07 Care Management Initial Assmt Initial Assessment Reason for Hospitalization: alcohol withdrawal Functional Status/Living Situation Patient Presentation: Malia was dozing when CM went to see her. She woke up but remained sleepy and was disinclined to talk very much. Malia confirmed the basic information about her home and occupation and stated that she is doing OK. She met with a Shift Foreman yesterday and stated she feels she has good support for her FLOR. Town of Residence: [facility] Resides with: Child (2 daughters ages 5 and 7) Significant Other/Family: Local Employment Status: Employed (works for [employer]) Instrumental Activities of Daily Living (ADLs): Independent Medications Medication Management: No Issues/Barriers identified Advance Directives Advance Directives: Do you have an Advance Directive: N 01/28/22 14:18 AD On File at [facility]: N 01/28/22 14:18 Date Asked 05/28/24 05/28/24 15:39 AD Date Reviewed COLST On File at [facility] No 02/07/24 17:48 COLST Date Scanned Code Status Resuscitation Status Full Code Insurance Coverage/Financial Issues Insurance: [place] Financial Assist 100% Care Team Visit Care Team Role Provider Type Randolph Harvey Primary Care Provider NON-[facility] STAFF PHYSICIAN Emili Ferreira MD Emergency Provider [facility] STAFF PHYSICIAN Andrea Trejo MD Admit Provider [facility] STAFF PHYSICIAN Attending Provider Discharge Potential Discharge Needs: PCP F/U Appt Anticipated Barriers to Discharge: None Identified Patient/Family Education Needs: Review discharge instructions, discuss Ask Me Three Transportation: Private vehicle Plan: Anticipate Malia will be discharged home with no new services. She will follow up with her PCP and plan of care and transport with family. CM will follow and support discharge planning efforts. PFSH All Active Problems (Updated 05/29/24 @ 09:56 by Margarito Curry) Alcohol withdrawal (Acute) Acute alcohol intoxication (Acute) Smoker (Acute) Alcoholic hepatitis (Chronic) Alcohol use disorder, severe, dependence (Chronic) Herpes simplex type 1 infection (Acute 12/19/16) Eczema (Chronic) ADHD (attention deficit hyperactivity disorder), combined type (Chronic) Generalized anxiety disorder (Chronic) Depression (Acute) Medical History (Updated 05/29/24 @ 09:56 by Margarito Curry) Benzodiazepine abuse Presence of intrauterine contraceptive device (IUD) Paragard IUD placed 12/01/23 History of cervical dysplasia December 2022: LSIL/HPV+ -->[place]: pending January 2022: colp --> CIN1 October 2021: LSIL/No HPV October 2020: Normal pap/No HPV Apr 2019: Normal pap/Neg HPV Apr 2018: ASCUS/HPV+ Neoplasm of uncertain behavior, unspecified new [place] visit [place] [facility] [place] 05/24/19. Vanessa Bryan MD History of calculus of kidney during (12/19/16) History of substance abuse (12/19/16) History of acute pyelonephritis Surgical History EGD w/Bx for H.Pylori (07/29/08) [facility] Cystoscopy (01/05/18) [facility] [place] with R ureteral stent placement Family History Father , OD at age 42. Substance abuse Essential hypertension Mother Mental disorder Bipolar d/o Neoplasm small cell neuroendocrine carcinoma Sister Substance abuse Mental disorder Bipolar d/o Brother Substance abuse Mental disorder Bipolar d/o Brother Substance abuse Mental disorder Bipolar d/o Grandmother Neoplasm Breast CA Social History Smoking/Tobacco Use Status: Current every day Tobacco Type: cigarettes and e-cigarettes Tobacco: How many years used: 10 Quit status: has quit before Counseling given: provider counseling Smoking risk assessment performed?: Yes Alcohol Intake: current Alcohol Intake frequency: 3 or more drinks per day Alcohol type: beer, wine and hard liquor Details: Decided to quit drinking. Stopped 01/2019 Drug use: Never Substance use type: marijuana Details: Pt states she drinks about 20 white claws on a daily basis Adopted: No Foster care: No Household members: significant other and children Housing: apartment Number of Children: 2 current occupation: [employer] Pets and animals: Yes (1 dog) What type of physical activity do you participate in: regular exercise Duration: other Details: cleaning Frequency: daily Do you feel safe at home: Yes Do you feel safe in your relationship?: Yes Female Reproductive History Menstrual Duration of menses: 6-7 days control method: copper IUCD History History 2 Para 2 Hx # Term Pregnancies 2 Multiple births 0 Hx # Pregnancies 0 Ectopic pregnancies 0 AB induced 0 Hx Number of Living Children 2 AB spontaneous 0 Past Pregnancies Del. Date GA/Weeks # Preg Succ Route Wgt Sex Labor Lgth Anesthesia Location Prov Complic 11/20/16 40 vaginal 2920.001 g Female 9 hours regional 12/22/18 40 No vaginal 3685.438 g Female Vale Bauer CNM Delivery Date: 11/20/16 Last Updated by: Vale Bauer Delivered at [facility] Management) Screening Will the Patient Participate in the Screening?: Unable to obtain
[2024-05-29 11:04] VITALS: BP 106/64; PULSE 43; RESP 17; TEMP 36.8; O2SAT 99
[2024-05-29] MEDS: cloNIDine 0.1 MG TAB PO (15:22)
[2024-05-29] MEDS: PHENobarbital 130 MG/ML VIAL IVP (15:35)
[2024-05-29 15:41] VITALS: BP 127/89; PULSE 53; RESP 16; TEMP 36.7; O2SAT 98
[2024-05-29] MEDS: Acetaminophen 325 MG TAB PO (17:46)
[2024-05-29] MEDS: Sertraline 50 MG TAB 100 MG PO (19:58)
[2024-05-29 21:49] VITALS: BP 107/75; PULSE 61; RESP 16; TEMP 36.1; O2SAT 98
[2024-05-30] MEDS: cloNIDine 0.1 MG TAB PO ×2 (01:15→07:13)
--- NOTE | 2024-05-30 04:17 | NUR.NOTE ---
Nursing Note: pt denies 0300 VS
[2024-05-30 06:15] VITALS: BP 101/74; PULSE 65; RESP 16; TEMP 36.7; O2SAT 97
[2024-05-30] MEDS: Lisdexamphetamine 40 MG CAP PO (06:56)
[2024-05-30] MEDS: Thiamine 100 MG TAB PO (06:56)
[2024-05-30] MEDS: DISULFIRAM 250 MG TAB PO (06:56)
[2024-05-30] MEDS: Folic Acid 1 MG TAB PO (06:56)
[2024-05-30] MEDS: Apixaban 5 MG TAB PO (06:56)
[2024-05-30] MEDS: Multivitamin TAB 1 TAB PO (06:56)
[2024-05-30] MEDS: Normal Saline Flush 10 ML SYR IVP (06:57)
--- NOTE | 2024-05-30 08:08 | DSE_ITS ---
Date of service: 05/30/24 Time of Service: 08:08 DS: Diagnosis Discharge Diagnosis (1) Alcohol withdrawal: Status: Acute (2) Alcohol use disorder, severe, dependence: Status: Chronic (3) Generalized anxiety disorder: Status: Chronic (4) ADHD (attention deficit hyperactivity disorder), combined type: Status: Chronic Discharge Plan Disposition Patient Disposition: Home Condition: Good Discharge Details Reason For Visit: Alcohol withdrawal Admit Date/Time: 05/28/24 16:54 Admit Provider: Andrea Trejo Attending Provider: Andrea Trejo Primary Care Provider: Randolph Harvey Hospital Course Hospital Course: 33 yo F with history of severe alcohol use disorder and multiple admissions for withdrawal, anxiety/depression, and ADHD who was admitted 05/28 for alcohol withdrawal. She was loaded with phenobarbitol and given supportive care per withdrawal protocol. This episode she did not need additional prn phenobarbitol after loading, which has not been true with previous admissions. Medical options for treating AUD were reviewed. She was able to attain 3 months of sobriety with disulfiram after last admittion. and she elected to resume that medication. We discussed adding naltrexone to her regimen, at least before stopping disulfuram again. We discussed the option of residential rehabilitation, which she declined. She reported the period of sobriety with support from AA, her zoroastrian, and disulfiram and help from her PCP and she feels confident with these tools. We discussed triggers. she was being treated for superficial thrombophlebitis with apixaban. She still had some firm superficial veins in her forearm, but they were not hot or inflammed. Discussion regarding the risk/benefit of ongoing anticoagulation was deferred to her PCP. She was counseled on smoking cessation and given the patch while inpatient. She should follow up with her PCP within 2 weeks. Home Meds and New Rx's Prescriptions: New folic acid 1 mg Tablet 1 mg PO QAM Qty: 30 0RF thiamine mononitrate (vit B1) [Vitamin B-1 (mononitrate)] 100 mg Tablet 100 mg PO QAM Qty: 0 0RF Continued sertraline 50 mg tablet 100 mg PO HS Patient Comments: TAKE ONE TABLET BY MOUTH EVERY DAY WITH 25MG TABLET FOR A TOTAL DAILY DOSE OF 75MG clonidine HCl 0.1 mg tablet 0.1 mg PO DAILY PRN Patient Comments: TAKE ONE TABLET BY MOUTH EVERY 6 HOURS NEEDED FOR ANXIETY OR WITHDRAWAL SYMPTOMS MAY TAKE 2 TABLETS AT BEDTIME FOR SLEEP AND ANXIETY Eliquis 5 mg tablet 5 mg PO BID disulfiram 250 mg tablet 250 mg PO DAILY Patient Comments: TAKE ONE TABLET BY MOUTH EVERY DAY lisdexamfetamine 50 mg capsule 40 mg PO DAILY Patient Comments: TAKE ONE CAPSULE BY MOUTH EVERY DAY multivitamin [Multiple Vitamins] Tablet 1 tab PO QAM Qty: 30 0RF Discharge Instructions Additional Instructions: resume the disulfiram as previously prescribed. Discuss adding naltrexone with your PCP, at least before you consider stopping the disulfuram again. Consider options for more formal addiction counseling and shorter term rehabilitation programs. Take care of yourself and good luck. Stand Alone Forms: Nursing Discharge Form Referrals: Randolph Harvey [Primary Care Provider] - (please call and make an appointment in the next 2weeks ) Activity:: Activity as Tolerated Equipment/Supplies:: No Equipment Needed Diet:: As Tolerated Discharge Orders Discharge Orders: Discharge Order (Routine); Ordered 05/30/24 Ordered By: Margarito Curry DS: Summary Time Spent with Patient providing and/or coordinating discharge services: Greater than 30 minutes Status at Discharge Functional status at discharge: independent ambulation Overall status at discharge: patient is back to baseline Mental Status: mental status grossly normal Speech and Movement: speech and movement normal Mood: congruent mood Affect: normal affect Quality:SDOH Health Related Social Needs: Health related social needs housing instability, house d, with risk of homelessness(Z59.811) Health related social needs details FLOR Exam Narrative Exam Narrative: Well-appearing female sitting up on the edge of the bed in no acute distress, A&O x 4, normal affect. Heart regular rhythm, lungs clear to auscultation bilaterally. Normal speech, gait, and coordination, no tremor with hands extended. Extremities non-tender, no edema. Firm palpable superficial vein cords in right forearm, not red or hot. Psych Mental Status: mental status grossly normal Speech and Movement: speech and movement normal Mood: congruent mood Affect: normal affect DS: Data Vitals/I&O Vitals and I&O: Vital Signs Temperature 36.7 C 05/30/24 06:15 Temperature Source Temporal Artery Scan 05/30/24 06:15 Pulse 65 05/30/24 06:15 Pulse Rhythm Regular 05/28/24 18:08 Pulse 96 H 05/28/24 17:50 Respiratory Rate 16 05/30/24 06:15 Respiratory Effort Normal 05/28/24 18:08 Respiratory Depth Normal 05/28/24 18:08 Respiratory Pattern Normal 05/28/24 18:08 Blood Pressure 101/74 05/30/24 06:15 Blood Pressure Position Sitting 05/28/24 14:34 Pulse Oximetry 97 05/30/24 06:15 Oxygen Delivery Method Room Air 05/30/24 06:15 Oxygen Flow Rate 0 05/30/24 06:15 Pain Level 0 05/28/24 19:11 Comment VS refused. Pt stated she would not allow VS if she was woken for them 05/29/24 04:00 Intake & Output 05/29/24 05/29/24 05/30/24 11:59 23:59 11:59 Intake Total 50.7692 / 920.7692 870 / 920.7692 450 / 450 Balance 50.7692 / 920.7692 870 / 920.7692 450 / 450 Intake: IV 50.7692 / 60.7692 10 / 60.7692 Oral 860 / 860 450 / 450 Other: Urine Color Yellow Urine Appearance Clear Comment Pt stated that she voided. voids independently Voiding Methods Toilet Toilet PFSH All Active Problems (Updated 05/29/24 @ 09:56 by Margarito Curry) Alcohol withdrawal (Acute) Acute alcohol intoxication (Acute) Smoker (Acute) Alcoholic hepatitis (Chronic) Alcohol use disorder, severe, dependence (Chronic) Herpes simplex type 1 infection (Acute 12/19/16) Eczema (Chronic) ADHD (attention deficit hyperactivity disorder), combined type (Chronic) Generalized anxiety disorder (Chronic) Depression (Acute) Medical History (Updated 05/29/24 @ 09:56 by Margarito Curry) Benzodiazepine abuse Presence of intrauterine contraceptive device (IUD) Paragard IUD placed 12/01/23 History of cervical dysplasia December 2022: LSIL/HPV+ -->[place]: pending January 2022: colp --> CIN1 October 2021: LSIL/No HPV October 2020: Normal pap/No HPV Apr 2019: Normal pap/Neg HPV Apr 2018: ASCUS/HPV+ Neoplasm of uncertain behavior, unspecified new pt visit at [facility] [place] 05/24/19. Vanessa Bryan MD History of calculus of kidney during (12/19/16) History of substance abuse (12/19/16) History of acute pyelonephritis Surgical History EGD w/Bx for H.Pylori (07/29/08) [facility] Cystoscopy (01/05/18) [facility] Urology with R ureteral stent placement Family History Father , OD at age 42. Substance abuse Essential hypertension Mother Mental disorder Bipolar d/o Neoplasm small cell neuroendocrine carcinoma Sister Substance abuse Mental disorder Bipolar d/o Brother Substance abuse Mental disorder Bipolar d/o Brother Substance abuse Mental disorder Bipolar d/o Grandmother Neoplasm Breast CA Social History Smoking/Tobacco Use Status: Current every day Tobacco Type: cigarettes and e- cigarettes Tobacco: How many years used: 10 Quit status: has quit before Counseling given: provider counseling Smoking risk assessment performed?: Yes Alcohol Intake: current Alcohol Intake frequency: 3 or more drinks per day Alcohol type: beer, wine and hard liquor Details: Decided to quit drinking. Stopped 01/2019 Drug use: Never Substance use type: marijuana Details: Pt states she drinks about 20 white claws on a daily basis Adopted: No Foster care: No Household members: significant other and children Housing: apartment Number of Children: 2 current occupation: [employer] Pets and animals: Yes (1 dog) What type of physical activity do you participate in: regular exercise Duration: other Details: cleaning Frequency: daily Do you feel safe at home: Yes Do you feel safe in your relationship?: Yes Female Reproductive History Menstrual Duration of menses: 6-7 days control method: copper IUCD History History 2 Para 2 Hx # Term Pregnancies 2 Multiple births 0 Hx # Pregnancies 0 Ectopic pregnancies 0 AB induced 0 Hx Number of Living Children 2 AB spontaneous 0 Past Pregnancies Del. Date GA/Weeks # Preg Succ Route Wgt Sex Labor Lgth Anesth esia Location [facility] 11/20/16 40 vaginal 2920.001 g Female 9 hours regional 12/22/18 40 No vaginal 3685.438 g Female Sudhir Bauer CNM Delivery Date: 11/20/16 Last Updated by: Vale Bauer Delivered at [place] Time Spent with Patient Time Spent with Patient: <45 minutes Time was spent: preparing to see the patient(eg.review tests), obtaining and/or reviewing separately otained hiistory, referring, communicating with other health career advisor, indepentently interpreting results, counseling the patient, care coordination and other
--- NOTE | 2024-05-30 09:03 | CMDISCH_ITS ---
Date of service: 05/30/24 Time of Service: 09:04 LACE Index Scoring Tool Questions: Length of Stay (in days): 2 Was the patient admitted via the E.D.?: Yes E.D. Visits: 11 Answers: Total Score: 9 Risk of Readmission: Low Risk Care Management Discharge Plan Reason for Hospitalization: alcohol withdrawal Discharge Plan: Malia returned home today with no new services. She is connected with a assistant boys track coach who will support her with sobriety efforts in the community. She was driven home via private vehicle by a friend. She will follow up with her PCP and discharge plan of care. Patient/Family Education Needs: Review discharge instructions and limitations, discussion of self care needs including ask me three. SDOH Health Related Social Needs: Health related social needs housing instability, house d, with risk of homelessness(Z59.811) Health related social needs details FLOR
== END 2024-05-30 08:21 | disposition home or self-care (01) | DRG 897 ==
LOC: ER 17:20 → MS 17:45
PROVIDERS: Admitting Provider Family Medicine; Emergency Provider Emergency Medicine; PCP Student in an Organized Health Care Education/Training Program; Visit Provider Family Medicine
DX: F10.229 Alcohol dependence with intoxication, unspecified (principal); F10.230 Alcohol dependence with withdrawal, uncomplicated; F41.1 Generalized anxiety disorder; F32.9 Major depressive disorder, single episode, unspecified; F90.2 Attention-deficit hyperactivity disorder, combined type; F17.210 Nicotine dependence, cigarettes, uncomplicated; K70.10 Alcoholic hepatitis without ascites; L30.9 Dermatitis, unspecified; F13.11 Sedative, hypnotic or anxiolytic abuse, in remission; Y90.4 Blood alcohol level of 80-99 mg/100 ml
CPT/HCPCS: 00123; 36415; 80048; 80053; 80307; 81025; 85027; 93005; 96365; 99285; 80320; 81003; 81015; 83735; 85025; 93010; 99223; 99232; 99239; J2560

== ENCOUNTER 2024-10-23 20:19 | Emergency (ER) | payer BC, SELFPAY ==
[2024-10-23 20:24] VITALS: BP 128/73; PULSE 84; RESP 19; TEMP 36.9; O2SAT 99
--- NOTE | 2024-10-23 21:00 | ED.GENADUL_ITS ---
Discharge Plan Disposition Patient Disposition: Home Condition: Stable Discharge Details Clinical Impression: Acute alcohol intoxication Primary Care Provider: Blanche Chester ED Provider: Nasima Donaldson Home Meds and New Rx's Prescriptions: Continued disulfiram 250 mg tablet 250 mg PO DAILY Patient Comments: TAKE ONE TABLET BY MOUTH EVERY DAY No Action sertraline 50 mg tablet 100 mg PO HS Patient Comments: TAKE ONE TABLET BY MOUTH EVERY DAY WITH 25MG TABLET FOR A TOTAL DAILY DOSE OF 75MG clonidine HCl 0.1 mg tablet 0.1 mg PO DAILY PRN Patient Comments: TAKE ONE TABLET BY MOUTH EVERY 6 HOURS NEEDED FOR ANXIETY OR WITHDRAWAL SYMPTOMS MAY TAKE 2 TABLETS AT BEDTIME FOR SLEEP AND ANXIETY Eliquis 5 mg tablet 5 mg PO BID folic acid 1 mg Tablet 1 mg PO QAM Qty: 30 0RF thiamine mononitrate (vit B1) [Vitamin B-1 (mononitrate)] 100 mg Tablet 100 mg PO QAM Qty: 0 0RF lisdexamfetamine 50 mg capsule 40 mg PO DAILY Patient Comments: TAKE ONE CAPSULE BY MOUTH EVERY DAY multivitamin [Multiple Vitamins] Tablet 1 tab PO QAM Qty: 30 0RF Discharge Instructions Instructions: Alcohol Use Disorder ED Additional Instructions: do not drink alcohol and drive please follow up with your community resources at this time you have no signs of alcohol withdrawal and therefore no indication for phenobarbital infusion or admission to the hospital. You were offered community resources which you stated that you have access to as well as other medications for alcohol abuse treatment but because you were not going to be given phenobarbital, you have decided to not pursue any other treatment in the emergency department. You are advised not to get into your vehicle and attempt to drive or the [facility] police will be called [facility] General Date/Time Provider Initiated Documentation: 10/23/24 20:54 . Limitations to Documentation: no limitations . Information obtained by: patient . HPI Narrative: 34-year-old female with past medical history including anxiety disorder, alcohol use dependence presents for evaluation requesting detox. She states that she has been in rehab for the last 4 months and just got discharged on Friday. She reports that she started drinking immediately. She states that she has had 212 packs of beer today with her last drink being just before coming inside the emergency department. She denies any history of severe alcohol withdrawal symptoms including seizures. She states that she just wants to get sober for her kids. She is requesting medication that starts with a P. Related Data Home Medications ?Medication ?Instructions ?Recorded ?Confirmed sertraline 50 mg tablet 100 mg PO HS 02/02/24 05/28/24 disulfiram 250 mg tablet 250 mg PO DAILY 02/09/24 05/28/24 lisdexamfetamine 50 mg capsule 40 mg PO DAILY 02/10/24 05/28/24 multivitamin (Multiple Vitamins 1 tab PO QAM #30 tabs 02/12/24 05/28/24 tablet) clonidine HCl 0.1 mg tablet 0.1 mg PO DAILY PRN 03/17/24 05/28/24 apixaban 5 mg tablet (Eliquis) 5 mg PO BID 05/28/24 05/28/24 folic acid 1 mg tablet 1 mg PO QAM #30 tabs 05/30/24 thiamine mononitrate (vit B1) 100 100 mg PO QAM #0 tabs 05/30/24 mg tablet (Vitamin B-1 (mononitrate)) Previous Rx's ?Medication ?Instructions ?Recorded multivitamin (Multiple Vitamins 1 tab PO QAM #30 tabs 02/12/24 tablet) folic acid 1 mg tablet 1 mg PO QAM #30 tabs 05/30/24 thiamine mononitrate (vit B1) 100 100 mg PO QAM #0 tabs 05/30/24 mg tablet (Vitamin B-1 (mononitrate)) Allergies Allergy/AdvReac Type Severity Reaction Status Date / Time Penicillins AdvReac Intermediate Hives Verified 05/28/24 14:44 General Stated Complaint: ETOHWithdr LETITIA: 3 Exam Narrative Exam Narrative: Review of Systems: All systems reviewed & are unremarkable except as noted in HPI and below Well-developed, no acute distress NCAT PERRL, no nystagmus RRR, no tachycardia, no hypertension Unlabored respiratory effort Nondistended abdomen no focal neurologic deficits, gait steady, no tremor Patient initially very tearful but then became fairly belligerent and agitated when she was informed that she did not need a phenobarbital infusion Course Vital Signs Vital signs: Vital Signs Temperature 36.9 C 10/23/24 20:24 Pulse 84 10/23/24 20:24 Respiratory Rate 19 10/23/24 20:24 Blood Pressure 128/73 10/23/24 20:24 Pulse Oximetry 99 10/23/24 20:24 Temperature 36.9 C 10/23/24 20:24 Temperature Source Temporal Artery Scan 10/23/24 20:24 Pulse 84 10/23/24 20:24 Respiratory Rate 19 10/23/24 20:24 Respiratory Pattern Normal 10/23/24 20:30 Blood Pressure 128/73 10/23/24 20:24 Blood Pressure Position Sitting 10/23/24 20:24 Pulse Oximetry 99 10/23/24 20:24 Oxygen Delivery Method Room Air 10/23/24 20:24 Oxygen Flow Rate 0 10/23/24 20:24 Pain Level 8 10/23/24 20:24 Medical Decision Making Emergent evaluation of alcohol abuse. The patient endorses large volume of alcohol ingestion today with last drink being in the parking lot . She states that her children are safe with her friend. Her vital signs are stable and she has no clinical signs of acute alcohol withdrawal, she has clear speech, no nystagmus and has a steady gait despite her endorsement of significant amount of alcohol use tonight. When I stated that a phenobarbital infusion was not indicated, the patient stopped crying stood up and became very directed with her speech that was fairly angry. She requested that one of the nurses that knows what they are doing should come in because she knows that she always gets a phenobarbital infusion gets admitted for 2 days and she is demanding the same today. I have offered her the math coach which she has declined to speak with. I have offered to refill her medication for Antabuse. The patient initially attempted to leave but when she was informed that the police would be called if she tried to drive her vehicle, she returned to her room. At this time there is no desire for psychiatric evaluation or inpatient psychiatric placement. There is no concern for acute alcohol withdrawal or complication from alcohol use disorder. At this time there is no further emergent workup indicated and I will give the patient nausea medication and discharge her to continue her follow-up with her outpatient treatment team. Quality:SDOH Health Related Social Needs: Health related social needs details FLOR PFSH All Active Problems (Updated 10/23/24 @ 20:59 by Nasima Donaldson MD) Acute alcohol intoxication (Acute) Smoker (Acute) Alcoholic hepatitis (Chronic) Alcohol use disorder, severe, dependence (Chronic) Herpes simplex type 1 infection (Acute 12/19/16) Eczema (Chronic) ADHD (attention deficit hyperactivity disorder), combined type (Chronic) Generalized anxiety disorder (Chronic) Depression (Acute) Medical History (Updated 10/23/24 @ 20:59 by Nasima Donaldson MD) Benzodiazepine abuse Presence of intrauterine contraceptive device (IUD) Paragard IUD placed 12/01/23 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 Vanessa Bryan MD History of calculus of kidney during (12/19/16) History of substance abuse (12/19/16) History of acute pyelonephritis Surgical History EGD w/Bx for H.Pylori (07/29/08) [facility]ystoscopy [facility]01/05/18) [facility] [place] Family History Father , OD at age 42. Substance abuse Essential hypertension Mother Mental disorder Bipolar d/o Neoplasm small cell neuroendocrine carcinoma Sister Substance abuse Mental disorder Bipolar d/o Brother Substance abuse Mental disorder Bipolar d/o Brother Substance abuse Mental disorder Bipolar d/o Grandmother Neoplasm Breast CA Social History Smoking/Tobacco Use Status: Current every day Tobacco Type: cigarettes and e-cigarettes Tobacco: How many years used: 10 Quit status: has quit before Counseling given: provider counseling Smoking risk assessment performed?: Yes Alcohol Intake: current Alcohol Intake frequency: 3 or more drinks per day A lcohol type: beer, wine and hard liquor Details: Decided to quit drinking. Stopped 01/2019 Drug use: Current Sobriety Substance use type: marijuana Details: Pt states she drinks about 20 white claws on a daily basis Adopted: No Foster care: No Household members: significant other and children Housing: apartment Number of Children: 2 current occupation: [employer] Pets and animals: Yes (1 dog) What type of physical activity do you participate in: regular exercise Duration: other Details: cleaning Frequency: daily Do you feel safe at home: Yes Do you feel safe in your relationship?: Yes Female Reproductive History Menstrual Duration of menses: 6-7 days control method: copper IUCD History History 2 Para 2 Hx # Term Pregnancies 2 Multiple births 0 Hx # Pregnancies 0 Ectopic pregnancies 0 AB induced 0 Hx Number of Living Children 2 AB spontaneous 0 Past Pregnancies Del. Date GA/Weeks # Preg Succ Route Wgt Sex Labor Lgth Anesth esia Location [facility] 11/20/16 40 vaginal 2920.001 g Female 9 hours regional 12/22/18 40 No vaginal 3685.438 g Female Sudhir Bauer,SAHARA Delivery Date: 11/20/16 Last Updated by: Vale Bauer Delivered at [facility] Have you Been Recently Intoxicated or Drunk Within the Last 30 days?: Yes Have you Ever Experienced Previous Episodes of Alcohol Withdrawal?: Yes Have you ever Experienced Withdrawal Seizures?: No Have you ever Experienced Delirium Tremens(DT)s?: Yes Have you ever undergone Alcohol Rehabilitation Treatment (i.e, inpt ot outpatient treatment programs)?: Yes Have you ever Experienced Blackouts?: Yes Have you ever Combined Alcohol with other Downers within the last 90 days?: No Have you ever Combined Alcohol with any other Substance of Abuse during the last 90 days?: No Positive Blood Alcohol level on Presentation? [PCS.BAL]: No Evidence of Increased Autonomic Activity (i.e. HR>120, tremor, sweating, agitation, nausea)?: No Result: 5
--- NOTE | 2024-10-23 21:04 | NUR.NOTE ---
2057: Pt became verbally aggressive towards MD Donaldson when MD began to discuss options for EtOH withdrawal. Demanding 'put me on a phenobarb gtt and admit me for two days. That's all I need you stupid b*tch. You try anything else and I'll fuck you up'. MD Donaldson left the room and pt eloped to the door w/ car keys in hand. 2101: Complaint Manager PERLA Steward and Lona at door w/ pt. Pt returned to room
[2024-10-23] MEDS: Ondansetron O.D.T. 4 MG TABEF, 3 TABS/BTL PO (21:19)
[2024-10-23] MEDS: Ondansetron O.D.T. 4 MG TABEF PO (21:19)
--- NOTE | 2024-10-23 21:30 | NUR.NOTE ---
2127: Pt refusing all treatment options except for phenobarb gtt and ICU admission. This RN attempted to educate pt that phenobarb gtt is inappropriate given current condition and encouraged to do anti-abuse regimen and treatment plan she was d/c'd from rehab w/ earlier this week. Pt angry and refusing to sign d/c paperwork and allow d/c vital signs. MD Donaldson aware.
== END 2024-10-23 21:54 | disposition home or self-care (01) ==
PROVIDERS: Emergency Provider Emergency Medicine; PCP Nurse Practitioner Family
DX: F17.210 Nicotine dependence, cigarettes, uncomplicated; F10.929 Alcohol use, unspecified with intoxication, unspecified; R11.0 Nausea
CPT/HCPCS: 99283

== ENCOUNTER 2025-02-08 13:33 | Outpatient (REF) | payer MEDICAID, SELFPAY ==
--- NOTE | 2025-02-08 13:57 | PAPFT_PTH ---
PATIENT: Malia Ledesma LOC: [facility] U#:[id number] AGE/SX: 34/F ROOM: RE02/08/[address]: Zeny Clemente MD : 1990 BED: DIS: 02/08/2025 SPEC #: [id number] RECD: 02/08/25 16:47 STATUS: SUSANNA REJimmie #: [id number] ANDREA: 02/08/25 13:[address]: Zeny Clemente [facility]PT: [facility] Cytology RECD BY: Camille Zuniga ENTERED: 02/08/25 16:48 SP TYPE: PAPFT OTHR DR: Blanche Chester Tissues: 1 - CX/ENDOCX FOR PAP SMEARS Procedures: PAP THIN PREP/UVM Screening HPV DNA PROBE Comments: [id number] (HPV 16 & 18/45) (CHLAMYDIA/GC)
[2025-02-09 12:27] LABS: Chlamydia Result Negative (Negative); GC Result Negative (Negative)
== END 2025-02-08 13:34 | disposition home or self-care (01) ==
LOC: LBN 13:33
PROVIDERS: PCP Nurse Practitioner Family; Visit Provider Obstetrics & Gynecology
DX: R87.610 Atypical squamous cells of undetermined significance on cytologic smear of cervix (ASC-US) (principal); Z11.51 Encounter for screening for human papillomavirus (HPV); Z01.419 Encounter for gynecological examination (general) (routine) without abnormal findings; Z11.3 Encounter for screening for infections with a predominantly sexual mode of transmission
CPT/HCPCS: 87491; 87591; 88142; 87624

== ENCOUNTER 2025-02-08 13:44 | Outpatient (CLI) | payer MEDICAID, SELFPAY ==
[2025-02-08 15:31] LABS: HCG Quant, Pregnancy < 1 mIU/mL (1-3)
[2025-02-09 09:57] LABS: HIV-1/2 Ag & Ab Screen Negative (Negative)
[2025-02-09 10:25] LABS: HBs Antibody, Qual Negative (See Note); HBs Antibody, Quant <3.1 mIU/mL (See Note); Hepatitis B Core Antibody Negative (Negative); Hepatitis B surface Ag Negative (Negative); Hepatitis C Ab w Rflx HCV PCR Negative (Negative)
[2025-02-09 11:20] LABS: Syphilis Serology (RPR) Negative (Negative)
== END 2025-02-08 13:45 | disposition home or self-care (01) ==
LOC: LBO 13:47
PROVIDERS: PCP Nurse Practitioner Family; Visit Provider Obstetrics & Gynecology
DX: Z11.3 Encounter for screening for infections with a predominantly sexual mode of transmission (principal); N92.6 Irregular menstruation, unspecified
CPT/HCPCS: 36415; 86704; 86706; 86803; 87340; 87389; 84702; 86592

== ENCOUNTER 2025-03-02 19:01 | Outpatient (REF) | payer MEDICAID, SELFPAY ==
[2025-03-02 18:15] LABS: HCT 41.9 % (36.0-46.0); HGB 13.2 g/dL (11.2-15.7); MCH 29.2 pg (27.0-33.0); MCHC 31.5 % (32.0-36.0); MCV 93 fL (80-95); MPV 10.9 fL (8.0-11.0); Platelet Count 290 10^3/uL (130-400); RBC 4.52 10^6/uL (3.93-5.22); RDW 13.2 % (11.7-14.6); RDW-SD 45.1 fL; WBC 6.02 10^3/uL (4.4-10.8)
[2025-03-02 18:30] LABS: ALT 40 U/L (14-59); AST 25 U/L (15-37); Albumin 4.2 g/dL (3.4-5.0); Alkaline Phosphatase 68 U/L (46-116); Anion Gap 10.3 mmol/L (3-11); BUN 12 mg/dL (7-18); Bilirubin, Total 0.3 mg/dL (0.2-1.0); CO2 28.7 mmol/L (21.0-32.0); Calcium 9.6 mg/dL (8.5-10.1); Chloride 103 mmol/L (98-107); Estimated GFR 127.72 (mL/min/1.73m2); Glucose 101 mg/dL (74-106); Potassium 4.5 mmol/L (3.5-5.1); Sodium 142 mmol/L (136-145); Total Protein 7.1 g/dL (6.4-8.2)
== END 2025-03-02 19:02 | disposition home or self-care (01) ==
LOC: NCHCN 19:01
PROVIDERS: PCP Physician Assistant; Visit Provider Physician Assistant
DX: F10.20 Alcohol dependence, uncomplicated (principal)
CPT/HCPCS: 80053; 85027

== ENCOUNTER 2025-05-03 14:23 | Outpatient (REF) | payer MEDICAID, SELFPAY ==
--- NOTE | 2025-05-03 13:20 | CER_PTH ---
PATIENT: Malia Ledesma LOC: [facility] U#:[id number] AGE/SX: 34/F ROOM: RE05/03/[address]: Zeny Clemente MD : 1990 BED: DIS: 05/03/2025 SPEC #: [id number] RECD: 05/03/25 16:38 STATUS: SUSANNA REJimmie #: [id number] ANDREA: 05/03/25 13:[address]: Zeny Clemente DEPT: Surgical Specimen RECD BY: Camille Zuniga ENTERED: 05/03/25 16:38 SP TYPE: CER OTHR DR: Tao Aleman Tissues: 1 - CERVICAL BIOPSY Procedures: GROSS AND MICRO LEVEL 4 IMMUNOPEROXIDASE STAIN Comments: [id number]
[2025-05-04 13:29] LABS: Chlamydia Result Negative (Negative); GC Result Negative (Negative)
== END 2025-05-03 14:24 | disposition home or self-care (01) ==
LOC: LBN 14:23
PROVIDERS: PCP Physician Assistant; Visit Provider Obstetrics & Gynecology
DX: N89.8 Other specified noninflammatory disorders of vagina (principal)
CPT/HCPCS: 87491; 87591; 88305; 87480; 87510; 87660; 88361